=== PATIENT | male | born 1950 | race Caucasian/White ===

== ENCOUNTER 2023-01-05 13:41 | Outpatient (OUT) | payer MEDICARE, SELFPAY ==
[2023-01-05 14:16] LABS: Basophils Absolute Auto 0.1 10^3/uL (0.0-0.1); Basophils Percent Auto 0.8 % (0.2-2.0); Eosinophils Absolute Auto 0.2 10^3/uL (0.0-0.7); Eosinophils Percent Auto 2.9 % (0.9-7.0); Hematocrit 45.8 % (42.0-54.0); Hemoglobin 15.9 g/dL (14.0-18.0); Immature Granulocytes Abs Auto 0.02 10^3/uL (0.00-0.03); Immature Granulocytes Pct Auto 0.3 % (0.0-0.5); Mean Corpuscular HGB Conc 34.7 g/dL (29.9-35.2); Mean Corpuscular Hemoglobin 33.1 pg (25.9-34.0); Mean Corpuscular Volume 95.4 fL (80.0-94.0); Mean Platelet Volume 11.8 fL (9.5-13.5); Monocytes Absolute Auto 0.7 10^3/uL (0.3-0.8); Neutrophils Absolute Auto 3.6 10^3/uL (1.4-6.5); Platelet Count 141 10^3/uL (150-450); Red Cell Distribution Width 12.5 % (11.0-15.0); White Blood Count 6.6 10^3/uL (4.0-11.0)
[2023-01-05 14:17] LABS: Anion Gap 7.2; BUN Creatinine Ratio 13.2; Carbon Dioxide 33.8 mmol/L (21.0-32.0); Chloride 103 mmol/L (98-107); Estimated Average Glucose 111 mg/dL; Estimated GFR (African America >60 (>=60); Estimated GFR (Non-African Ame >60 (>=60); Glucose 107 mg/dL (74-106); Glycohemoglobin A1C 5.5 % (4.5-6.2); Sodium 139 mmol/L (136-145)
== END 2023-01-05 13:42 | disposition home or self-care (01) ==
LOC: LAB 13:45
PROVIDERS: PCP Family Medicine; Visit Provider Family Medicine
DX: Z79.899 Other long term (current) drug therapy (principal); E11.65 Type 2 diabetes mellitus with hyperglycemia
CPT/HCPCS: 36415; 80048; 83036; 85025

== ENCOUNTER 2023-03-05 12:54 | Outpatient (OUT) | payer MEDICARE, SELFPAY ==
[2023-03-05 13:55] LABS: Basophils Percent Auto 0.8 % (0.2-2.0); Eosinophils Absolute Auto 0.1 10^3/uL (0.0-0.7); Eosinophils Percent Auto 1.6 % (0.9-7.0); Hematocrit 45.2 % (42.0-54.0); Hemoglobin 15.1 g/dL (14.0-18.0); Immature Granulocytes Abs Auto 0.02 10^3/uL (0.00-0.03); Immature Granulocytes Pct Auto 0.4 % (0.0-0.5); Lymphocytes Absolute Auto 1.7 10^3/uL (1.2-3.8); Mean Corpuscular HGB Conc 33.4 g/dL (29.9-35.2); Mean Corpuscular Hemoglobin 33.2 pg (25.9-34.0); Mean Corpuscular Volume 99.3 fL (80.0-94.0); Mean Platelet Volume 12.4 fL (9.5-13.5); Monocytes Absolute Auto 0.6 10^3/uL (0.3-0.8); Monocytes Percent Auto 12.6 % (1.7-12.0); Neutrophils Absolute Auto 2.6 10^3/uL (1.4-6.5); Neutrophils Percent Auto 50.6 % (43.0-75.0); Platelet Count 119 10^3/uL (150-450); Red Blood Count 4.55 10^6/uL (4.70-6.10); Red Cell Distribution Width 12.2 % (11.0-15.0); White Blood Count 5.1 10^3/uL (4.0-11.0)
== END 2023-03-05 12:55 | disposition home or self-care (01) ==
LOC: LAB 12:56
PROVIDERS: PCP Family Medicine; Visit Provider Family Medicine
DX: D64.9 Anemia, unspecified (principal)
CPT/HCPCS: 36415; 85025

== ENCOUNTER 2023-04-20 15:54 | Emergency (ER) | payer MEDICARE, SELFPAY ==
[2023-04-20] VITALS (18 sets, daily range): BP systolic 94–215; BP diastolic 65–107; PULSE 61–82; RESP 13–26; TEMP 36.4; O2SAT 83–99; BMI 30.7
--- NOTE | 2023-04-20 16:07 | ECG_ITS ---
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
--- NOTE | 2023-04-20 16:07 | XR_ITS ---
The [address] [address] Patient Name: SEN CARMONA MRN: [id number] date: 1950 Sex: M Assigned Patient Location: ER Current Patient Location: ER Accession/Order Number: [id number] Exam Date: 04/20/2023 16:23 Report Date: 04/20/2023 16:57 At the request of: RUDDY CEBALLOS Procedure: XR chest 1V EXAMINATION: XR chest 1V, , 04/20/2023 4:23 PM EST INDICATION: syncope HISTORY: Ordering Provider Reason for Exam: syncope Technologist Note: Additional: COMPARISON: None. TECHNIQUE: Chest x-ray: One view. FINDINGS: No pneumothorax, pleural effusion or focal airspace consolidation. Heart is normal in size. Bony thorax is unremarkable. XR/XR chest 1V IMPRESSION: No acute cardiopulmonary process. Electronically authenticated by: CARO NICHOLE Date: 04/20/2023 16:57
--- NOTE | 2023-04-20 16:09 | ED_ITS ---
HPI - General Adult General Chief complaint: Headache Stated complaint: Head injury Time Seen by Provider: 04/20/23 15:56 Source: patient Mode of arrival: walk-in Limitations: no limitations History of Present Illness HPI narrative: Patient had two similar episodes - in which he went to bed and then later woke on the floor of the bedroom - once last night and another 3 nights ago. He does not know what happened - he knows that he hit his head. No seizure activity since then but he has had global headache, neck pain, dizziness - I feel like I am drunk but I don't drink - and vague imbalance. Patient takes Plavix daily. No prior history of seizures or recurrent syncope. No extremity injuries or pain. He said that he is struggling for the last several months the patient has been distressed dealing with his 's cancer diagnosis and treatments. He admits he hasn't been eating or drinking appropriately due to the stress and depression of dealing with his 's illness. Related Data Home Medications Medication Instructions Recorded Confirmed carvedilol 3.125 mg tablet 3.125 mg PO Q12H 04/20/23 04/20/23 clopidogrel 75 mg tablet 75 mg PO DAILY 04/20/23 04/20/23 cyclobenzaprine 10 mg tablet 10 mg PO TID 04/20/23 04/20/23 ferrous sulfate 325 mg (65 mg 325 mg PO BID 04/20/23 04/20/23 iron) tablet (FeroSul) hydrocodone 7.5 mg-acetaminophen 1 tab PO Q6H PRN pain 04/20/23 04/20/23 325 mg tablet omeprazole 40 mg capsule,delayed 40 mg PO DAILY 04/20/23 04/20/23 release pioglitazone 15 mg tablet 15 mg PO DAILY 04/20/23 04/20/23 sotalol 80 mg tablet 80 mg PO Q12H 04/20/23 04/20/23 tamsulosin 0.4 mg capsule 0.8 mg PO DAILY 04/20/23 04/20/23 venlafaxine 75 mg capsule,extended 150 mg PO DAILY 04/20/23 04/20/23 release 24 hr zolpidem 10 mg tablet 10 mg PO BEDTIME 04/20/23 04/20/23 Allergies Allergy/AdvReac Type Severity Reaction Status Date / Time No Known Drug Allergies Allergy Verified 04/20/23 16:03 PFSH PFSH Social History Smoking status: Heavy tobacco smoker Exam Narrative Exam Narrative: Nurses note and vital signs reviewed and patient is not hypoxic. afebrile General: The patient appears well and in no apparent distress. Patient is resting comfortably on cart. GCS = 15. Skin: Warm, dry, no pallor noted. Head: Normocephalic, atraumatic - he has scalp tenderness but no swelling, palpable fracture, laceration or abrasion. Neck: Supple, trachea mid-line. Diffuse midline posterior cervical spinal tenderness. Eyes: PERRLA, EOMI ENT: TMs clear bilaterally, no hemotympanum detected, no blood in posterior oropharynx Cardiovascular: Regular Rate and Rhythm Respiratory: Patient is in no distress, no accessory muscle use, lungs are clear to auscultation, no wheezing, rales or rhonchi Chest Wall: no tenderness, no flail chest, contusion, abrasion, or signs of trauma. Back: No thoracic or lumbar tenderness to palpation. No flank tenderness Musculoskeletal: All extremities, pelvis, clavicles with no sign of long bone fracture, no tenderness, no swelling. Pulses at femoral, DP, PT, and popliteal were 2+ bilaterally. Moves all four extremities in all modalities with 5/5 strength. GI: Normal bowel sounds, no tenderness to palpation, no masses appreciated. No rebound, guarding, or rigidity noted. Neurological: A&O x4, normal equal pharmaceutical representative strength, normal finger to nose, normal speech, normal coordination, normal motor, normal sensory. Psychiatric: Cooperative Constitutional Vital Signs, click to edit/add: Last Vital Signs Temp 97.5 F L 04/20/23 15:59 Pulse 74 04/20/23 17:06 Resp 21 04/20/23 17:06 BP 138/92 H 04/20/23 17:06 Pulse Ox 90 L 04/20/23 17:04 O2 Del Method Room Air 04/20/23 15:59 Course Vital Signs Vital signs: Vital Signs Temperature 97.5 F L 04/20/23 15:59 Pulse Rate 82 04/20/23 15:59 Respiratory Rate 16 04/20/23 15:59 Blood Pressure 147/92 H 04/20/23 15:59 Pulse Oximetry 96 04/20/23 15:59 Oxygen Delivery Method Room Air 04/20/23 15:59 Temperature 97.5 F L 04/20/23 15:59 Pulse Rate 74 04/20/23 17:06 Respiratory Rate 21 04/20/23 17:06 Blood Pressure 138/92 H 04/20/23 17:06 Pulse Oximetry 90 L 04/20/23 17:04 Oxygen Delivery Method Room Air 04/20/23 15:59 Medical Decision Making MDM Narrative Medical decision making narrative: Patient was placed on site monitor and EKG obtained. Blood drawn and sent for evaluation. orthostatics were positive with over 50 point drop in systolic blood pressure going from laying to standing. He was given NS IVF 1L. He was sent for CT scans of the head and cervical spine. CXR also obtained and was negative. Normal WBC, Hb 14.6. D-Dimer negative. CMP unremarkable. UA negative. CTs head and cervical spine = without acute worrisome findings or findings to account for the patient's symptoms. Orthostatics repeated after the 1L bolus of NS IVF - his systolic BP only dropped about 15 points. He was given a second liter of NS IVF. Patient and I discussed his results, the stress of his 's cancer and poor prognosis = they have been together over 54 years, he told me. Patient discharged home with recommendation to increase his food and fluid intake and take his meds as prescribed. Lab Data Lab results reviewed: Yes I reviewed the patient's lab results Labs: Lab Results 04/20/23 04/20/23 Range/Units 16:20 17:15 WBC 6.7 (4.0-11.0) 10^3/uL RBC 4.31 L (4.70-6.10) 10^6/uL Hgb 14.6 (14.0-18.0) g/dL Hct 42.6 (42.0-54.0) % MCV 98.8 H (80.0-94.0) fL MCH 33.9 (25.9-34.0) pg MCHC 34.3 (29.9-35.2) g/dL RDW 12.3 (11.0-15.0) % Plt Count 113 L (150-450) 10^3/uL MPV 12.1 (9.5-13.5) fL Neut % (Auto) 57.6 (43.0-75.0) % Lymph % (Auto) 28.0 (20.5-60.0) % [place] % (Auto) 12.4 H (1.7-12.0) % Eos % (Auto) 1.3 (0.9-7.0) % Baso % (Auto) 0.4 (0.2-2.0) % Neut # (Auto) 3.9 (1.4-6.5) 10^3/uL Lymph # (Auto) 1.9 (1.2-3.8) 10^3/uL [place] # (Auto) 0.8 (0.3-0.8) 10^3/uL Eos # (Auto) 0.1 (0.0-0.7) 10^3/uL Baso # (Auto) 0.0 (0.0-0.1) 10^3/uL Abs Immat Gran (auto) 0.02 (0.00-0.03) 10^3/uL Imm/Tot Granulo (auto) 0.3 (0.0-0.5) % D-Dimer 0.35 (<=0.59) mg/L FEU Sodium 139 (136-145) mmol/L Potassium 4.1 (3.5-5.1) mmol/L Chloride 101 (98-107) mmol/L Carbon Dioxide 36.2 H (21.0-32.0) mmol/L Anion Gap 5.9 BUN 13.0 (7.0-18.0) mg/dL Creatinine 0.75 (0.70-1.30) mg/dL Est GFR ( Amer) >60 (>=60) Est GFR (Non-Af Amer) >60 (>=60) BUN/Creatinine Ratio 17.3 Glucose 94 (74-106) mg/dL Calcium 8.9 (8.5-10.1) mg/dL Total Bilirubin 0.4 (0.2-1.0) mg/dL AST 15 (15-37) U/L ALT 14 L (16-63) U/L Alkaline Phosphatase 72 (46-116) U/L Troponin I High Sens 6.7 (4.0-76.1) pg/mL NT-Pro-B Natriuret Pep 68.0 (<=900.0) pg/mL Total Protein 6.9 (6.4-8.2) g/dL Albumin 3.6 (3.4-5.0) g/dL Globulin 3.3 g/dL Albumin/Globulin Ratio 1.1 Urine Color Yellow (YELLOW) Urine Clarity Clear (CLEAR) Urine pH 6.5 (5.0-9.0) Ur Specific [place] 1.020 (1.005-1.025) Urine Protein Negative (NEG/TRACE) mg/dL Urine Glucose (UA) Negative (NEGATIVE) mg/dL Urine Ketones Negative (NEGATIVE) mg/dL Urine Occult Blood Negative (NEGATIVE) Urine Nitrite Negative (NEGATIVE) Urine Bilirubin Negative (NEGATIVE) Urine Urobilinogen 1.0 (0.2-1.0) EU/dL Ur Leukocyte Esterase Negative (NEGATIVE) Imaging Data Chest x-ray: Radiologist's impression: Patient Name: SEN CARMONA MRN: [id number] date: 1950 Sex: M Assigned Patient Location: ER Current Patient Location: ER Accession/Order Number: [id number] Exam Date: 04/20/2023 16:23 Report Date: 04/20/2023 16:57 At the request of: RUDDY CEBALLOS Procedure: XR chest 1V EXAMINATION: XR chest 1V, , 04/20/2023 4:23 PM EST INDICATION: syncope HISTORY: Ordering Provider Reason for Exam: syncope Technologist Note: Additional: COMPARISON: None. TECHNIQUE: Chest x-ray: One view. FINDINGS: No pneumothorax, pleural effusion or focal airspace consolidation. Heart is normal in size. Bony thorax is unremarkable. IMPRESSION: No acute cardiopulmonary process. Electronically authenticated by: CARO NICHOLE Date: 04/20/2023 16:57 CT head & cervical spine: Radiologist's impression: Patient Name: SEN CARMONA MRN: [id number] date: 1950 Sex: M Assigned Patient Location: ER Current Patient Location: ED.MAIN Accession/Order Number: [id number] Exam Date: 04/20/2023 16:23 Report Date: 04/20/2023 17:46 At the request of: RUDDY CEBALLOS Procedure: CT cervical spine wo con EXAMINATION: CT head/brain wo con, CT cervical spine wo con CLINICAL HISTORY: head injury, headache TECHNIQUE: Serial axial unenhanced images were obtained from the vertex to the foramen magnum. Spiral, high resolution axial unenhanced images were obtained from the skull base to the cervicothoracic junction with sagittal and coronal planar reconstructions. All CT scans at this facility use dose modulation, iterative reconstruction, and/or weight based dosing when appropriate to reduce radiation dose to as low as reasonably achievable. COMPARISON: None. RESULT: BRAIN: Acute change: No evidence of an acute contusion or other acute parenchymal process. Hemorrhage: No evidence of acute intracranial hemorrhage. Mass lesion / Mass effect: There is no evidence of an intracranial mass or extraaxial fluid collection. No significant mass effect. Chronic change: Patchy foci of low attenuation coefficient are present within the supratentorial white matter which is a nonspecific finding but likely represents moderate microvascular ischemia. 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 Parenchyma: There is moderate generalized volume loss. Ventricles: Ventricular enlargement concordant with the degree of parenchymal volume loss. Soft Tissues: No significant superficial soft tissue swelling. Facial bones: No evidence of an acute fracture in the visualized facial bones. Orbits: Bilateral lens replacements. Paranasal Sinuses: The paranasal sinuses are clear. Mastoid air cells: Clear. CERVICAL: Counting reference: Craniocervical junction. Alignment: Straightening of the cervical lordosis. Atlantoaxial interval is within normal limits. Vertebral body heights are maintained. Multilevel loss of disc spaces throughout the cervical spine, most prominent at C6-C7. Craniocervical junction: Craniocervical junction is normal. Osseous structures/fracture: No evidence of a lytic or blastic process in the visualized spine. No evidence of acute or chronic fracture. Cervical soft tissues: The paraspinal soft tissues planes are maintained. Multilevel degenerative changes most prominent at C5-C6 and C6-C7. Upper thoracic spine: Visualized upper thoracic canal and foramina without significant narrowing. Severe emphysema within the imaged lung apices. IMPRESSION: Brain: 1. No acute intracranial abnormality; no acute infarct, intracranial hemorrhage or extra-axial collection. 2. Chronic microvascular ischemia, sequela of prior right sided infarct and involutional changes. Cervical spine: 1. No acute fracture or traumatic malalignment in the cervical spine. 2. Multilevel degenerative changes most prominent at C5-C6 and C6-C7. Electronically authenticated by: KAREN SOLER Date: 04/20/2023 17:46 ECG Data Attestation: I personally reviewed and interpreted this ECG as follows: Interpretation: EKG interpretation: Emergency Department physician interpretation. Normal sinus rhythm at 75bpm. LADFB. no ST segment elevation or depression. Discharge Plan Discharge Chief Complaint: Headache Clinical Impression: Orthostasis, Syncope, Head injury Time of Disposition Decision: 18:09 Prescriptions / Home Meds: No Action clopidogrel 75 mg tablet 75 mg PO DAILY omeprazole 40 mg capsule,delayed release(DR/EC) 40 mg PO DAILY zolpidem 10 mg tablet 10 mg PO BEDTIME venlafaxine 75 mg capsule,extended release 24hr 150 mg PO DAILY tamsulosin 0.4 mg capsule 0.8 mg PO DAILY sotalol 80 mg tablet 80 mg PO Q12H pioglitazone 15 mg tablet 15 mg PO DAILY hydrocodone-acetaminophen 7.5-325 mg tablet 1 tab PO Q6H PRN (Reason: pain) ferrous sulfate [FeroSul] 325 mg (65 mg iron) tablet 325 mg PO BID cyclobenzaprine 10 mg tablet 10 mg PO TID carvedilol 3.125 mg tablet 3.125 mg PO Q12H Instructions: Dehydration (ED), Syncope (ED), Head Injury (ED) Stand Alone Forms: Portal Instructions Referrals: Pablo Carranza MD [Primary Care Provider] - 1 week
[2023-04-20 16:39] LABS: Basophils Percent Auto 0.4 % (0.2-2.0); Eosinophils Absolute Auto 0.1 10^3/uL (0.0-0.7); Eosinophils Percent Auto 1.3 % (0.9-7.0); Hematocrit 42.6 % (42.0-54.0); Hemoglobin 14.6 g/dL (14.0-18.0); Immature Granulocytes Abs Auto 0.02 10^3/uL (0.00-0.03); Immature Granulocytes Pct Auto 0.3 % (0.0-0.5); Lymphocytes Absolute Auto 1.9 10^3/uL (1.2-3.8); Mean Corpuscular HGB Conc 34.3 g/dL (29.9-35.2); Mean Corpuscular Hemoglobin 33.9 pg (25.9-34.0); Mean Corpuscular Volume 98.8 fL (80.0-94.0); Mean Platelet Volume 12.1 fL (9.5-13.5); Monocytes Absolute Auto 0.8 10^3/uL (0.3-0.8); Monocytes Percent Auto 12.4 % (1.7-12.0); Neutrophils Absolute Auto 3.9 10^3/uL (1.4-6.5); Neutrophils Percent Auto 57.6 % (43.0-75.0); Platelet Count 113 10^3/uL (150-450); Red Blood Count 4.31 10^6/uL (4.70-6.10); Red Cell Distribution Width 12.3 % (11.0-15.0); White Blood Count 6.7 10^3/uL (4.0-11.0)
[2023-04-20] MEDS: 0.9 % SODIUM CHLORIDE 1,000 ML 999 ML IV (16:41)
[2023-04-20 16:54] LABS: D Dimer 0.35 mg/L FEU (<=0.59)
[2023-04-20 17:01] LABS: Alanine Aminotransferase 14 U/L (16-63); Albumin Globulin Ratio 1.1; Albumin Level 3.6 g/dL (3.4-5.0); Alkaline Phosphatase 72 U/L (46-116); Anion Gap 5.9; Aspartate Amino Transferase 15 U/L (15-37); BUN Creatinine Ratio 17.3; Bilirubin Total 0.4 mg/dL (0.2-1.0); Calcium 8.9 mg/dL (8.5-10.1); Carbon Dioxide 36.2 mmol/L (21.0-32.0); Chloride 101 mmol/L (98-107); Estimated GFR (African America >60 (>=60); Estimated GFR (Non-African Ame >60 (>=60); Globulin 3.3 g/dL; Glucose 94 mg/dL (74-106); Potassium 4.1 mmol/L (3.5-5.1); Sodium 139 mmol/L (136-145); Total Protein 6.9 g/dL (6.4-8.2); Troponin I High Sensitivity 6.7 pg/mL (4.0-76.1)
[2023-04-20 17:54] LABS: Bilirubin Urine NEGATIVE (NEGATIVE); Blood Urine NEGATIVE (NEGATIVE); Clarity Urine CLEAR (CLEAR); Color Urine YELLOW (YELLOW); Glucose Urine UA NEGATIVE (NEGATIVE); Ketones Urine NEGATIVE (NEGATIVE); Leukocyte Esterase Urine NEGATIVE (NEGATIVE); Nitrite Urine NEGATIVE (NEGATIVE); Protein Urine NEGATIVE (NEG/TRACE); Urine Microscopic Indicated NO; pH Urine 6.5 (5.0-9.0)
[2023-04-20] MEDS: 0.9 % SODIUM CHLORIDE 1,000 ML 1000 ML IV (18:12)
== END 2023-04-20 19:00 | disposition home or self-care (01) ==
PROVIDERS: Emergency Provider Emergency Medicine; PCP Family Medicine
DX: S09.90XA Unspecified injury of head, initial encounter (principal); I95.1 Orthostatic hypotension; Z79.02 Long term (current) use of antithrombotics/antiplatelets; Z79.899 Other long term (current) drug therapy; F17.210 Nicotine dependence, cigarettes, uncomplicated; W22.8XXA Striking against or struck by other objects, initial encounter
CPT/HCPCS: 36415; 70450; 71045; 72125; 80053; 81003; 83880; 84484; 85025; 85378; 93005; 96360; 96361; 99285

== ENCOUNTER 2023-05-13 20:59 | Emergency (ER) | payer MEDICARE, SELFPAY ==
[2023-05-13] VITALS (15 sets, daily range): BP systolic 116; BP diastolic 69; PULSE 75–87; RESP 16–22; TEMP 36.4; O2SAT 96; BMI 32.3
--- NOTE | 2023-05-13 21:33 | ECG_ITS ---
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
--- NOTE | 2023-05-13 21:33 | CT_ITS ---
The [address] [address] Patient Name: SEN CARMONA MRN: [id number] date: 1950 Sex: M Assigned Patient Location: ER Current Patient Location: Accession/Order Number: [id number] Exam Date: 05/13/2023 23:08 Report Date: 05/13/2023 23:44 At the request of: WENDY MARKER Procedure: CT soft tissue neck wo/w con EXAM: CT soft tissue neck wo/w con HISTORY: neck pain, diff swallowing COMPARISON: CT cervical spine 04/20/2023. TECHNIQUE: Unenhanced and contrast-enhanced axial CT of the neck was performed with coronal and sagittal reformats provided. FINDINGS: The parotid, submandibular and thyroid glands are within normal limits. Nasopharynx, oropharynx, oral cavity and the larynx are within normal limits. No cervical lymphadenopathy. No enlarged or necrotic lymph nodes. Imaged intracranial contents are within normal limits. Vascular structures of the neck are normal. Sequelae of centrilobular and paraseptal emphysematous disease at the lung apices. Nodular scarring at the left lung apex, partially imaged. Orbits are intact. Status post bilateral lens replacements. Imaged sinuses are clear. Mastoids and middle ears are clear. No acute or aggressive osseous abnormality. CT/CT soft tissue neck wo/w con IMPRESSION: No acute abnormality of the neck soft tissues. Electronically authenticated by: BENNIE MCKEON Date: 05/13/2023 23:44
--- NOTE | 2023-05-13 21:35 | ED.NECK1 ---
HPI - Neck Pain/Injury General Chief Complaint: Neck Pain/Injury Stated Complaint: neck pain, was here a few weeks, almost lost elyse Time Seen by Provider: 05/13/23 21:14 Source: patient Mode of arrival: walk-in Limitations: no limitations History of Present Illness HPI Narrative: This 72-year-old male presents for evaluation of right-sided neck pain. Several weeks ago the patient had a fall out of bed and struck the right side of his head. He was seen here and evaluated. He had a CT scan done at that time that was normal. He states that he has an having increasing right-sided neck pain. He has unable to flex his neck or rotated to the right or left. He states that he followed up after being seen in emergency department with his family physician and was told that he has arthritis in his neck. He told his doctor this was BS and the neck pain is not arthritis. The patient has no upper extremity weakness numbness or tingling. He has not had any fever. He does have a cough and is a smoker. Since that time he has developed pain with swallowing and thinks that this may be related to his neck pain and has right-sided ear pain. He does have chronic pain and took 3 Vicodin today. Related Data Home Medications Medication Instructions Recorded Confirmed carvedilol 3.125 mg tablet 3.125 mg PO Q12H 04/20/23 05/13/23 clopidogrel 75 mg tablet 75 mg PO DAILY 04/20/23 05/13/23 cyclobenzaprine 10 mg tablet 10 mg PO TID 04/20/23 05/13/23 ferrous sulfate 325 mg (65 mg 325 mg PO BID 04/20/23 05/13/23 iron) tablet (FeroSul) hydrocodone 7.5 mg-acetaminophen 1 tab PO Q6H PRN pain 04/20/23 04/20/23 325 mg tablet omeprazole 40 mg capsule,delayed 40 mg PO DAILY 04/20/23 05/13/23 release pioglitazone 15 mg tablet 15 mg PO DAILY 04/20/23 05/13/23 sotalol 80 mg tablet 80 mg PO Q12H 04/20/23 04/20/23 tamsulosin 0.4 mg capsule 0.8 mg PO DAILY 04/20/23 05/13/23 venlafaxine 75 mg capsule,extended 150 mg PO DAILY 04/20/23 05/13/23 release 24 hr zolpidem 10 mg tablet 10 mg PO BEDTIME 04/20/23 05/13/23 Allergies Allergy/AdvReac Type Severity Reaction Status Date / Time No Known Drug Allergies Allergy Verified 05/13/23 21:07 Review of Systems ROS Status of ROS 10 or more systems reviewed and unremarkable except as noted in history and below [facility] Social History Smoking status: Current every day smoker Exam Narrative Exam Narrative: Nurses note and vital signs reviewed and patient is not hypoxic. General:Nontoxic, thin alert male resting comfortably on the stretcher, no respiratory distress Skin: Warm, dry, no pallor noted. There is no rash noted. Tobacco stained fingers Head: Normocephalic, atraumatic Eye: Normal conjunctiva, no drainage, EOMI. PERRL, No photophobia noted Neck: Tenderness to the anterior and posterior sternocleidomastoid muscles and insertion on the occipital mastoid bone. Decreased range of motion in all directions due to pain. No pulsatile masses appreciated trachea is midline. No anterior posterior cervical lymphadenopathy appreciated Ears, Nose, Mouth, and Throat: oral mucosa is moist. Nares patent. Mouth without vesicles. Ear canals patent. Tm's without Erythema Cardiovascular: Regular Rate and Rhythm S1S2, no murmurs, rubs or gallops, pulses are brisk and equal bilaterally Respiratory: Patient is in no distress, no accessory muscle use, lungs are diffusely diminished Back: non-tender, no CVA tenderness bilaterally to percussion. GI: Normal bowel sounds, no tenderness to palpation, no masses appreciated. No rebound, guarding, or rigidity noted. Musculoskeletal: The patient has no evidence of calf tenderness, no pitting edema, symmetrical pulses noted bilaterally Neurological: A&O x4, normal speech, upper and lower extremity strength and sensation are intact Psychiatric: Cooperative Constitutional Vital Signs, click to edit/add: Last Vital Signs Temp 97.6 F 05/13/23 21:09 Pulse 84 05/13/23 21:09 Resp 20 05/13/23 21:09 BP 116/69 05/13/23 21:09 Pulse Ox 96 05/13/23 21:09 O2 Del Method Room Air 05/13/23 21:09 Course Vital Signs Vital signs: Vital Signs Temperature 97.6 F 05/13/23 21:09 Pulse Rate 84 05/13/23 21:09 Respiratory Rate 20 05/13/23 21:09 Blood Pressure 116/69 05/13/23 21:09 Pulse Oximetry 96 05/13/23 21:09 Oxygen Delivery Method Room Air 05/13/23 21:09 Temperature 97.6 F 05/13/23 21:09 Pulse Rate 84 05/13/23 21:09 Respiratory Rate 20 05/13/23 21:09 Blood Pressure 116/69 05/13/23 21:09 Pulse Oximetry 96 05/13/23 21:09 Oxygen Delivery Method Room Air 05/13/23 21:09 MDM - Neck Pain/Injury MDM Narrative Medical decision making narrative: This 72-year-old male who is a history of chronic back pain for which he is prescribed 7.5 mg [place] by his family physician presents for evaluation of right-sided neck pain with decreased range of motion. The patient had a fall several weeks ago and was seen in this emergency department. He has been having increasing neck pain since that time. He has no associated neurological symptoms. He states that most recently he has been having trouble swallowing and he feels this is related to his neck pain. He does not have any focal weakness numbness or tingling. He has not had a fever. His neuro exam is normal. He has tenderness in the anterior and posterior bellies of the sternocleidomastoid muscle. There was no midline bony vertebral tenderness or step-off. Due to the fact that he is complaining of pain with swallowing associated with his neck pain I ordered a CT scan of the soft tissues of the neck with IV contrast. He has a normal white count and hemoglobin. He has normal electrolytes. He has a normal Lactic acid. Strep testing is negative. Was medicated emergency department with IV fluids, IV morphine, Toradol and IM Valium. On reevaluation he states that he does not feel any better. I explained to him that his CT scan does not show any acute findings and his symptoms are likely musculoskeletal in nature. I explained to him that I cannot prescribe any additional narcotics since he gets narcotics from his family physician. He will be discharged home with a prescription for Flexeril and 600 mg ibuprofen. I encouraged him to use moist heat, gentle stretching and follow up closely with his PCP. Medical Records Medical records narrative: The [address] [address] [address] Scan Report Signed Patient: SEN CARMONA MR#: [id number] : 1950 Acct:[id number] Age/Sex: 72 / M ADM Date: 05/13/23 Loc: ER Attending Dr: Ordering Physician: Monika Guzman Date of Service: 05/13/23 Procedure(s): CT soft tissue neck wo/w con Accession Number(s): [id number] cc: Pablo Carranza M.D.~ The [address] [address] Patient Name: SEN CARMONA MRN: [id number] date: 1950 Sex: M Assigned Patient Location: ER Current Patient Location: ER Accession/Order Number: [id number] Exam Date: 05/13/2023 23:08 Report Date: 05/13/2023 23:44 At the request of: MONIKA GUZMAN Procedure: CT soft tissue neck wo/w con EXAM: CT soft tissue neck wo/w con HISTORY: neck pain, diff swallowing COMPARISON: CT cervical spine 04/20/2023. TECHNIQUE: Unenhanced and contrast-enhanced axial CT of the neck was performed with coronal and sagittal reformats provided. FINDINGS: The parotid, submandibular and thyroid glands are within normal limits. Nasopharynx, oropharynx, oral cavity and the larynx are within normal limits. No cervical lymphadenopathy. No enlarged or necrotic lymph nodes. Imaged intracranial contents are within normal limits. Vascular structures of the neck are normal. Sequelae of centrilobular and paraseptal emphysematous disease at the lung apices. Nodular scarring at the left lung apex, partially imaged. Orbits are intact. Status post bilateral lens replacements. Imaged sinuses are clear. Mastoids and middle ears are clear. No acute or aggressive osseous abnormality. CT/CT soft tissue neck wo/w con IMPRESSION: No acute abnormality of the neck soft tissues. Electronically authenticated by: BENNIE MCKEON Date: 05/13/2023 23:44 Lab Data Labs: Lab Results 05/13/23 05/13/23 05/13/23 Range/Units 21:38 21:43 21:50 WBC 8.0 (4.0-11.0) 10^3/uL RBC 4.45 L (4.70-6.10) 10^6/uL Hgb 14.8 (14.0-18.0) g/dL Hct 43.9 (42.0-54.0) % MCV 98.7 H (80.0-94.0) fL MCH 33.3 (25.9-34.0) pg MCHC 33.7 (29.9-35.2) g/dL RDW 12.0 (11.0-15.0) % Plt Count 166 (150-450) 10^3/uL MPV 11.8 (9.5-13.5) fL Neut % (Auto) 65.9 (43.0-75.0) % Lymph % (Auto) 20.6 (20.5-60.0) % [place] % (Auto) 11.3 (1.7-12.0) % Eos % (Auto) 1.4 (0.9-7.0) % Baso % (Auto) 0.5 (0.2-2.0) % Neut # (Auto) 5.3 (1.4-6.5) 10^3/uL Lymph # (Auto) 1.6 (1.2-3.8) 10^3/uL [place] # (Auto) 0.9 H (0.3-0.8) 10^3/uL Eos # (Auto) 0.1 (0.0-0.7) 10^3/uL Baso # (Auto) 0.0 (0.0-0.1) 10^3/uL Abs Immat Gran (auto) 0.02 (0.00-0.03) 10^3/uL Imm/Tot Granulo (auto) 0.3 (0.0-0.5) % Sodium 137 (136-145) mmol/L Potassium 3.9 (3.5-5.1) mmol/L Chloride 99 (98-107) mmol/L Carbon Dioxide 33.6 H (21.0-32.0) mmol/L Anion Gap 8.3 BUN 13.0 (7.0-18.0) mg/dL Creatinine 0.66 L (0.70-1.30) mg/dL Est GFR ( Amer) >60 (>=60) Est GFR (Non-Af Amer) >60 (>=60) BUN/Creatinine Ratio 19.7 Glucose 107 H (74-106) mg/dL Lactate 0.9 (0.4-2.0) mmol/L Calcium 9.1 (8.5-10.1) mg/dL Total Bilirubin 0.3 (0.2-1.0) mg/dL AST 14 L (15-37) U/L ALT 15 L (16-63) U/L Alkaline Phosphatase 83 (46-116) U/L Total Protein 7.2 (6.4-8.2) g/dL Albumin 3.2 L (3.4-5.0) g/dL Globulin 4.0 g/dL Albumin/Globulin Ratio 0.8 Streptococcus Screen Negative ECG Data Attestation: I personally reviewed and interpreted this ECG as follows: (Sinus rhythm at 75 beats for minute, left anterior hemiblock, no acute ST segment elevation or T-wave inversion) Discharge Plan Discharge Chief Complaint: Neck Pain/Injury Clinical Impression: Acute torticollis, Cervical strain, acute Patient Disposition: Home, Self-Care Time of Disposition Decision: 23:57 Condition: Good Prescriptions / Home Meds: No Action clopidogrel 75 mg tablet 75 mg PO DAILY omeprazole 40 mg capsule,delayed release(DR/EC) 40 mg PO DAILY zolpidem 10 mg tablet 10 mg PO BEDTIME venlafaxine 75 mg capsule,extended release 24hr 150 mg PO DAILY tamsulosin 0.4 mg capsule 0.8 mg PO DAILY sotalol 80 mg tablet 80 mg PO Q12H pioglitazone 15 mg tablet 15 mg PO DAILY hydrocodone-acetaminophen 7.5-325 mg tablet 1 tab PO Q6H PRN (Reason: pain) ferrous sulfate [FeroSul] 325 mg (65 mg iron) tablet 325 mg PO BID cyclobenzaprine 10 mg tablet 10 mg PO TID carvedilol 3.125 mg tablet 3.125 mg PO Q12H Instructions: Cervical Strain (DC), Neck Pain (ED) Stand Alone Forms: Portal Instructions Referrals: Pablo Carranza MD [Primary Care Provider] - 1 week
[2023-05-13 22:09] LABS: Basophils Percent Auto 0.5 % (0.2-2.0); Eosinophils Absolute Auto 0.1 10^3/uL (0.0-0.7); Eosinophils Percent Auto 1.4 % (0.9-7.0); Hematocrit 43.9 % (42.0-54.0); Hemoglobin 14.8 g/dL (14.0-18.0); Immature Granulocytes Abs Auto 0.02 10^3/uL (0.00-0.03); Immature Granulocytes Pct Auto 0.3 % (0.0-0.5); Lymphocytes Absolute Auto 1.6 10^3/uL (1.2-3.8); Lymphocytes Percent Auto 20.6 % (20.5-60.0); Mean Corpuscular HGB Conc 33.7 g/dL (29.9-35.2); Mean Corpuscular Hemoglobin 33.3 pg (25.9-34.0); Mean Corpuscular Volume 98.7 fL (80.0-94.0); Mean Platelet Volume 11.8 fL (9.5-13.5); Monocytes Absolute Auto 0.9 10^3/uL (0.3-0.8); Monocytes Percent Auto 11.3 % (1.7-12.0); Neutrophils Absolute Auto 5.3 10^3/uL (1.4-6.5); Neutrophils Percent Auto 65.9 % (43.0-75.0); Platelet Count 166 10^3/uL (150-450); Red Blood Count 4.45 10^6/uL (4.70-6.10)
[2023-05-13 22:16] LABS: Internal Control Within Normal Limits; Strep A Antigen Screen Negative
[2023-05-13 22:30] LABS: Lactate/Lactic Acid 0.9 mmol/L (0.4-2.0)
[2023-05-13] MEDS: 0.9 % SODIUM CHLORIDE 1,000 ML 1000 ML IV (22:31)
[2023-05-13] MEDS: MORPHINE SULFATE 4 MG/ML VIAL IV (22:32)
[2023-05-13] MEDS: KETOROLAC TROMETHAMINE 30 MG/ML VIAL 15 MG IVP (22:33)
[2023-05-13 22:37] LABS: Alanine Aminotransferase 15 U/L (16-63); Albumin Globulin Ratio 0.8; Albumin Level 3.2 g/dL (3.4-5.0); Alkaline Phosphatase 83 U/L (46-116); Anion Gap 8.3; Aspartate Amino Transferase 14 U/L (15-37); BUN Creatinine Ratio 19.7; Bilirubin Total 0.3 mg/dL (0.2-1.0); Calcium 9.1 mg/dL (8.5-10.1); Carbon Dioxide 33.6 mmol/L (21.0-32.0); Chloride 99 mmol/L (98-107); Estimated GFR (African America >60 (>=60); Estimated GFR (Non-African Ame >60 (>=60); Glucose 107 mg/dL (74-106); Potassium 3.9 mmol/L (3.5-5.1); Sodium 137 mmol/L (136-145); Total Protein 7.2 g/dL (6.4-8.2)
[2023-05-13] MEDS: DIAZEPAM 10 MG/2 ML SYRINGE 5 MG IM (22:37)
[2023-05-14] VITALS: PULSE 85; RESP 16
== END 2023-05-14 00:26 | disposition home or self-care (01) ==
PROVIDERS: Emergency Provider Emergency Medicine; PCP Family Medicine
DX: S16.1XXA Strain of muscle, fascia and tendon at neck level, initial encounter (principal); M43.6 Torticollis; W06.XXXA Fall from bed, initial encounter; G89.29 Other chronic pain; M54.9 Dorsalgia, unspecified; Z79.899 Other long term (current) drug therapy; F17.210 Nicotine dependence, cigarettes, uncomplicated
CPT/HCPCS: 36415; 70492; 80053; 83605; 85025; 87070; 87880; 93005; 96374; 96375; 99285; Q9967

== ENCOUNTER 2023-07-22 11:30 | Outpatient (OUT) | payer MEDICARE, SELFPAY ==
--- OUTSIDE RECORDS SUMMARY | 2023-07-22 11:35 | XMS_ITS | CCD ---
Author Name Unknown Address [address] [place] [address] Organization [facility] Care Team Providers Care Economics Department Chair Name Role Phone Pablo Abreu Unavailable Unavailable Unavailable Nataliia Koch Unavailable Unavailable Unavailable LOIS, DR PABLO Goodman Primary Care Unavailable NADERER, DR PABLO Goodman Consulting Unavailable NADERER, DR PABLO Goodman Admitting Unavailable NADERER, DR PABLO Goodman Attending Unavailable NADERER, DR PABLO Goodman Consulting Unavailable NADERER, DR PABLO Goodman Admitting Unavailable NADERER, DR PABLO Goodman Primary Care Unavailable NADERER, DR PABLO Goodman Attending Unavailable NADERER, DR PABLO Goodman Consulting Unavailable NADERER, DR PABLO Goodman Admitting Unavailable NADERER, DR PABLO Goodman Primary Care Unavailable NADERER, DR PABLO Goodman Attending Unavailable NADERER, DR PABLO Goodman Consulting Unavailable NADERER, DR PABLO Goodman Admitting Unavailable NADERER, DR PABLO Goodman Primary Care Unavailable NADERER, DR PABLO Goodman Attending Unavailable NADERER, DR PABLO Goodman Primary Care Unavailable NADERER, DR PABLO Goodman Consulting Unavailable NADERER, DR PABLO Goodman Admitting Unavailable NADERER, DR PABLO Goodman Attending Unavailable NADERER, DR PABLO Goodman Consulting Unavailable NADERER, DR PABLO Goodman Primary Care Unavailable NADERER, DR PABLO Goodman Admitting Unavailable NADERER, DR PABLO Goodman Attending Unavailable MENG ., HECTOR Admitting Unavailable NADERER, DR PABLO Goodman Primary Care Unavailable ZIEBER, DR KATIA Neil Consulting Unavailable MENG ., HECTOR Attending Unavailable NADERER, DR PABLO Goodman Consulting Unavailable BETH QUINTANA Consulting Unavailable CHELE MALAVE Consulting Unavailable SISTER, HUNTER Consulting Unavailable MENG ., HECTOR Consulting Unavailable ZAIDA HEBERT Consulting Unavailable NADERER, DR PABLO Goodman Consulting Unavailable NADERER, DR PABLO Goodman Attending Unavailable NADERER, DR PABLO Goodman Admitting Unavailable NADERER, DR PABLO Goodman Primary Care Unavailable NADERER, DR PABLO Goodman Attending Unavailable NADERER, DR PABLO Goodman Consulting Unavailable NADERER, DR PABLO Goodman Admitting Unavailable NADERER, DR PABLO Goodman Primary Care Unavailable NADERER, DR PABLO Goodman Attending Unavailable NADERER, DR PABLO Goodman Consulting Unavailable NADERER, DR PABLO Goodman Admitting Unavailable NADERER, DR PABLO Goodman Primary Care Unavailable NADERER, DR PABLO Goodman Admitting Unavailable NADERER, DR PABLO Goodman Primary Care Unavailable NADERER, DR PABLO Goodman Attending Unavailable NADERER, DR PABLO Goodman Consulting Unavailable HAY, DR FOX Consulting Unavailable HAY, DR FOX Admitting Unavailable HAY, DR FOX Attending Unavailable NADERER, DR PABLO Goodman Primary Care Unavailable NADERER, DR PABLO Goodman Admitting Unavailable NADERER, DR PABLO Goodman Attending Unavailable NADERER, DR PABLO Goodman Consulting Unavailable NADERER, DR PABLO Goodman Primary Care Unavailable LILIAN, BETH Consulting Unavailable ADELIA, FESTUS Consulting Unavailable SISTER, HUNTER Consulting Unavailable SHARP, SEUN Consulting Unavailable TAMLYN, ZAIDA Consulting Unavailable FACUNDO, KADEN Consulting Unavailable NADERER, DR PABLO Goodman Consulting Unavailable NADERER, DR PABLO Goodman Admitting Unavailable NADERER, DR PABLO Goodman Attending Unavailable NADERER, DR PABLO Goodman Primary Care Unavailable TAMLYN, ZAIDA Admitting Unavailable TAMLYN, ZAIDA Consulting Unavailable TAMLYN, ZAIDA Attending Unavailable NADERER, DR PABLO Goodman Primary Care Unavailable MINO, DEBBY Consulting Unavailable NADERER, DR PABLO Goodman Attending Unavailable NADERER, DR PABLO Goodman Consulting Unavailable NADERER, DR PABLO Goodman Primary Care Unavailable NADERER, DR PABLO Goodman Admitting Unavailable NADERER, DR PABLO Goodman Admitting Unavailable NADERER, DR PABLO Goodman Primary Care Unavailable NADERER, DR PABLO Goodman Attending Unavailable NADERER, DR PABLO Goodman Consulting Unavailable MISA Padilla Attending Provider MD Consuelo Johnson Referring Provider MD Pablo Abreu Primary Care Provider Consuelo Johnson Unavailable MISA Padilla Attending Provider MD Consuelo Johnson Referring Provider MD Pablo Abreu Primary Care Provider Escamilla, Israel Referring Unavailable Escamilla, Israel Attending Unavailable Naderer, Dr. Pablo Grewal Primary Care Unavai lable Escamilla, Israel Attending Unavailable Naderer, Dr. Pablo Grewal Primary Care Unavai lable Escamilla, Israel Referring Unavailable Naderer, Dr. Pablo Grewal Primary Care Unavai lable Escamilla, Israel Referring Unavailable Escamilla, Israel Attending Unavailable Naderer, Dr. Pablo Grewal Primary Care Unavai lable Escamilla, Israel Referring Unavailable Escamilla, Israel Attending Unavailable Escamilla, Wood Referring Unavailable Escamilla, Israel Attending Unavailable Nadererashaad, Dr. Pablo Grewal Primary Care Wandy SERVIN, NIZTA HUITRON Attending Janice vailable Lois, Dr. Pablo Grewal Primary Care Wandy Alex, Dr. Katia Perdomo Admitting Unavaila ble Abi, Dr. Katia Perdomo Attending Unavaila ble Andi, Israel Referring Unavailable Lois, Dr. Pablo Grewal Primary Care MD Consuelo Buck Attending Provider MD Israel Escamilla Attending Provider MD Pablo Abreu Primary Care Provider MD Katia Alex Attending Provider [phone] MD Katia Alex Referring Provider [phone] Abi, Dr. Katia Perdomo Attending Unavaila ble Escamilla, Dr. Israel Valdez Referring Janice vailable Nadadair, Dr. Pablo Grewal Primary Care BRUCE Olson Attending Unavailable Lois, Dr. Pablo Grewal Primary Care Wandy Alex, Dr. Katia Perdomo Referring Unavaila ble Pablo Abreu MD Primary Care Provider ANDI, ISRAEL M Attending Unavailable PABLO ABREU Primary Care Unavailabl e Escamilla, Israel Admitting Unavailable Escamilla, Israel Attending Unavailable Pablo Abreu Primary Care Unavailable Pablo Abreu Primary Care Unavailable Asaad, Imad Referring Unavailable Mellissa Padilla Admitting Unavailab Mellissa Angulo Attending Unavailab le Asaad, Imad Admitting Unavailable Asaad, Imad Attending Unavailable Pablo Abreu Primary Care Unavailable Katia Alex Admitting Unavailable Katia Alex Attending Unavailable Katia Alex Referring Unavailable Pablo Abreu Primary Care Unavailable PABLO ABREU Attending Unavailable Allergies Allergy Classification Reported Allergen(s) Allergy Type Date of Onset Reaction(s) Facility (4 sources) [place] tar; Translations: [pine tar] Drug Allergy 07-29-2022 [facility] Repository Medications Current Medications Medication Drug Class(es) Dates Sig (Normalized) Sig (Original) acetaminophen 325 mg / HYDROcodone bitartrate 7.5 mg oral tablet (20 sources) Opioid Agonist Start: 02-14-2021 End: 08-03-2022 take 1 tablet by mouth every six hours Hydrocodone-Acet aminophen ([place]) 7.5-325 mg Tablet Active 1 TAB PO Q6H August 03, 2022 1:00am aspirin 81 mg oral tablet (20 sources) Platelet Aggregation Inhibitor, Nonsteroidal Anti-inflammatory Drug Start: 09-03-2022 take 81 mg by mouth once daily Aspirin Active 81 MG PO Daily September 03, 2022 12:00am Start: 02-14-2021 End: 08-03-2022 take 1 tablet by mouth once daily, then take 1 tablet by mouth once aspirin 81 mg EC tablet Take 1 tablet (81 mg) by mouth once daily. Take one tablet by mouth every Wednesday and only 0 04/10/2022 Active cyclobenzaprine hydrochloride 10 mg oral tablet (20 sources) Muscle Relaxant Start: 02-14-2021 End: 08-03-2022 take 1 tablet by mouth three times daily Cyclobenzaprine (Flexeril) 10 mg Tablet Active 10 MG PO Three times daily August 03, 2022 1:00am take 1 tablet by da th every twenty-four hours as needed cyclobenzaprine (Flexeril) 10 mg tablet Take 1 tablet (10 mg) by mouth once daily as needed for muscle spasms. 0 Active docusate sodium 100 mg oral capsule (20 sources) Start: 08-03-2022 take 1 capsule by mouth twice daily Docusate Sodium (Colace) 100 mg Capsule Active 100 MG PO Twice daily August 03, 2022 1:00am Start: 02-14-2021 End: 02-14-2021 Docusate Sodium (Colace) 50 mg Capsule Discontinued 50 MG PO As Directed February 14, 2021 12:00am February 14, 2021 9:41am Colace Active omeprazole 40 mg delayed release oral capsule (20 sources) Proton Pump Inhibitor Start: 02-14-2021 take 40 mg by mouth once daily Omeprazole Active 40 MG PO Daily February 14, 2021 12:00am Omeprazole Not-T aking Omeprazole Activ e pioglitazone 15 mg oral tablet (20 sources) Peroxisome Proliferator Receptor alpha Agonist, Peroxisome Proliferator Receptor gamma Agonist, Thiazolidinedione Start: 02-14-2021 take 15 mg by mouth once daily Pioglitazone Active 15 MG PO Daily February 14, 2021 12:00am Actos Active simvastatin 40 mg oral tablet (20 sources) HMG-CoA Reductase Inhibitor Start: 02-14-2021 take 1 tablet by mouth once daily at bedtime Simvastatin (Zocor) 40 mg Tablet Active 40 MG PO Daily at bedtime February 14, 2021 12:00am Zocor Active Completed/Discontinued Medications Medication Drug Class(es) Dates Sig (Normalized) Sig (Original) [id number] 200 actuat albuterol 0.09 mg/actuat metered dose inhaler (4 sources) beta2-Adrenergic Agonist Start: 02-14-2021 End: 08-03-2022 Albuterol Sulfate Discontinued 90 MCG INHALATION As Directed February 14, 2021 12:00am August 03, 2022 3:56pm amoxicillin 500 mg oral capsule (4 sources) Penicillin-class Antibacterial Start: 02-23-2022 take 1 capsule by mouth every eight hours Amoxicillin 500 MG Oral Capsule take 1 capsule by mouth every 8 hours Quantity: 21 Refills: 0 Ordered: 23-Feb-2022 DO Start : 23-Feb-2022 Complete Start: 11-27-2021 take 1 tablet by da th every eight hours Amoxicillin 875 MG Oral Tablet take 1 tablet by mouth every 8 hours for 10 days Quantity: 30 Refills: 0 Ordered: 27-Nov-2021 DO Start : 27-Nov-2021 Complete Aspir-81 (3 sources) Aspir-81 Not-Rufus ing Aspir-81 Active atenolol 25 mg oral tablet (4 sources) beta-Adrenergic Anaya Start: 02-14-2021 End: 02-17-2021 take 25 mg by mouth once daily Atenolol Discontinued 25 MG PO Daily February 14, 2021 12:00am February 17, 2021 1:48pm betamethasone 0.5 mg/ml / clotrimazole 10 mg/ml topical cream (1 source) Azole Antifungal, Corticosteroid Start: 03-09-2022 Clotrimazole-Betam ethasone 1-0.05 % External Cream Quantity: 45 Refills: 0 Ordered: 09-Mar-2022 DO Start : 09-Mar-2022 Complete carvedilol 3.125 mg oral tablet (3 sources) alpha-Adrenergic Anaya, beta-Adrenergic Anaya take 1 tablet by mouth twice daily Carvedilol 3.125 MG Oral Tablet Take 1 tablet twice daily Quantity: 180 Refills: 3 Ordered: 07-Oct-2022 DO Active chlorhexidine gluconate 1.2 mg/ml mouthwash (3 sources) Start: 11-27-2021 Chlorhexidine Gluconate 0.12 % Mouth/Throat Solution Quantity: 473 Refills: 0 Ordered: 27-Nov-2021 DO Start : 27-Nov-2021 Complete Start: 11-27-2021 take 10 mL by mouth twice daily Peridex 0.12 % gargle 10 ml Mouth/Throat twice daily Oct, Active clopidogrel 75 mg oral tablet (6 sources) P2Y12 Platelet Inhibitor Start: 09-03-2022 take 1 tablet by mouth once daily Clopidogrel Bisulfate 75 MG Oral Tablet TAKE 1 TABLET DAILY. Quantity: 90 Refills: 3 Ordered: 30-Sep-2022 Israel Escamilla MD Start : 30-Sep-2022 Active restart doxycycline hyclate 100 mg oral tablet (4 sources) Tetracycline-class Drug Start: 02-17-2021 End: 08-03-2022 take 100 mg by mouth twice daily Doxycycline Hyclate Discontinued 100 MG PO Twice daily 16 February 17, 2021 12:00am August 03, 2022 3:56pm ferrous sulfate 325 mg oral tablet (3 sources) take 1 tablet by mouth once daily at mealtime Ferrous Sulfate 325 (65 Fe) MG Oral Tablet TAKE 1 TABLET DAILY WITH FOOD. Quantity: 90 Refills: 3 Ordered: 07-Oct-2022 DO Active FLUoxetine 40 mg oral capsule (4 sources) Serotonin Reuptake Inhibitor Start: 02-14-2021 End: 02-14-2021 take 1 capsule by mouth once daily Fluoxetine (Prozac) 40 mg Capsule Discontinued 40 MG PO Daily February 14, 2021 12:00am February 14, 2021 9:39am gabapentin 100 mg oral capsule (4 sources) Anti-epileptic Agent Start: 02-14-2021 End: 02-14-2021 take 100 mg by mouth three times daily Gabapentin Discontinued 100 MG PO Three times daily February 14, 2021 12:00am February 14, 2021 8:50am midodrine hydrochloride 5 mg oral tablet (8 sources) alpha-Adrenergic Agonist Start: 06-08-2022 take 1 tablet by mouth twice daily Midodrine HCl - 5 MG Oral Tablet Take 1 tablet twice daily Quantity: 180 Refills: 3 Ordered: 08-Jun-2022 Israel Escamilla MD Start : 08-Jun-2022 Active new start predniSONE 10 mg oral tablet (4 sources) Start: 02-17-2021 End: 08-03-2022 Prednisone Discontinued 10 MG PO Daily February 17, 2021 12:00am August 03, 2022 3:56pm 30mg daily x 2 days, 20 mg daily x 2 days, 10mg daily x 2 days, then stop. Take in AM with food. sotalol hydrochloride 80 mg oral tablet (20 sources) Antiarrhythmic Start: 09-30-2022 take 1 tablet by mouth once daily Sotalol HCl - 80 MG Oral Tablet TAKE 1 TABLET EVERY 12 HOURS DAILY. Quantity: 180 Refills: 1 Ordered: 30-Sep-2022 Israel Escamilla MD Start : 30-Sep-2022 Active restart Start: 02-25-2022 take 1 tablet by da th every twelve hours sotalol (Betapace) 80 mg tablet Take 1 tablet (80 mg) by mouth every 12 hours. 0 02/25/2022 Active Start: 02-17-2021 End: 08-03-2022 take 1 tablet by mouth twice daily Sotalol (Betapace) 80 mg Tablet Active 80 MG PO Twice daily August 03, 2022 1:00am Betapace Not-Rufus ing Betapace Active tamsulosin hydrochloride 0.4 mg oral capsule (20 sources) alpha-Adrenergic Anaya Start: 08-03-2022 End: 08-03-2022 take 1 capsule by mouth once daily Tamsulosin (Flomax) 0.4 mg Capsule Discontinued 0.4 MG PO Daily August 03, 2022 1:00am August 03, 2022 3:57pm Start: 02-14-2021 take 0.8 mg by mouth once real y Tamsulosin Active 0.8 MG PO Daily February 14, 2021 12:00am Flomax Active 24 hr venlafaxine 75 mg extended release oral capsule (20 sources) Serotonin and Norepinephrine Reuptake Inhibitor Start: 11-18-2021 take 1 capsule by mouth every twenty-four hours Venlafaxine HCl ER 75 MG Oral Capsule Extended Release 24 Hour Quantity: 90 Refills: 0 Ordered: 18-Nov-2021 DO Start : 18-Nov-2021 Complete Start: 02-14-2021 take 75 mg by mouth once daily Venlafaxine Active 75 MG PO Daily February 14, 2021 12:00am take 1 tablet by da th once daily venlafaxine (Effexor) 75 mg tablet Take 1 tablet (75 mg) by mouth once daily. 0 Active warfarin sodium 2 mg oral tablet (15 sources) Vitamin K Antagonist Start: 02-14-2021 End: 09-03-2022 Warfarin Discontinued 5 MG PO As Directed February 14, 2021 12:00am September 03, 2022 11:26am Coumadin Not-Rufus ing Warfarin Sodium 2 MG Oral Tablet Take as directed by Dr. Abreu Quantity: 0 Refills: 0 Ordered: 21-Aug-2021 DO Active Coumadin Active zolpidem tartrate 5 mg oral tablet (20 sources) gamma-Aminobutyric Acid-ergic Agonist Start: 08-03-2022 End: 09-03-2022 take 1 tablet by mouth once daily at bedtime Zolpidem (Ambien) 5 mg Tablet Discontinued 5 MG PO Daily at bedtime August 03, 2022 1:00am September 03, 2022 11:27am Start: 02-14-2021 take 10 mg by mouth once daily Zolpidem Active 10 MG PO Daily February 14, 2021 12:00am Ambien Active Problems Active Problems Problem Classification Problem Date Documented Da te Episodic/Chronic Acute cerebrovascular disease (20 sources) Cerebrovascular accident; Translations: [Cerebral artery occlusion, unspecified with cerebral infarction] Onset: 3 02-14-2021 Chronic Biliary tract disease (1 source) Calculus of gallbladder without cholecystitis without obstruction; Translations: [CALCU GB W/O CHOLECYST W/O OBST] Onset: 3 Episodic Cardiac dysrhythmias (20 sources) Atrial fibrillation and flutter ; Translations: [Atrial fib/flutter, transient] Onset: 3 02-14-2021 Chronic Chronic obstructive pulmonary disease and bronchiectasis (20 sources) Chronic obstructive lung disease; Translations: [Chronic airway obstruction, not elsewhere classified] Onset: 3 02-14-2021 Chronic Coagulation and hemorrhagic disorders (9 sources) Thrombocytopenic disorder; Translations: [Thrombocytopenia, unspecified] 02-14-2021 Chronic Conditions associated with dizziness or vertigo (12 sources) Dizziness; Translations: [Dizziness and giddiness] 02-14-2021 Episodic Coronary atherosclerosis and other heart disease (20 sources) Coronary arteriosclerosis; Translations: [Coronary atherosclerosis of unspecified type of vessel, [place] or graft] Onset: 3 02-14-2021 Chronic Deficiency and other anemia (3 sources) Iron deficiency anemia secondary to blood loss (chronic); Translations: [Iron deficiency anemia secondary to blood loss (chronic)] Onset: 3 08-20-2022 Chronic Deficiency and other anemia (3 sources) Anemia due to blood loss; Translations: [Iron deficiency anemia secondary to blood loss (chronic)] 08-20-2022 Chronic Deficiency and other anemia (1 source) Iron deficiency anemia secondary to blood loss (chronic); Translations: [Iron deficiency anemia secondary to blood loss (chronic)] Onset: 3 Chronic Diabetes mellitus with complications (12 sources) Type 2 diabetes mellitus; Translations: [Diabetes with neurological manifestations, type II or unspecified type, not stated as uncontrolled] Onset: 3 Chronic Diabetes mellitus without complication (20 sources) Diabetes mellitus; Translations: [Diabetes mellitus without mention of complication, type II or unspecified type, not stated as uncontrolled] Onset: 3 02-14-2021 Chronic Disorders of lipid metabolism (18 sources) Hyperlipidemia; Translations: [Other and unspecified hyperlipidemia] Onset: 3 04-13-2023 Chronic Diverticulosis and diverticulitis (1 source) Diverticulosis of large intestine without perforation or abscess with bleeding; Translations: [DVRTCLOS LG INT W/O PERF/ABSC W/BL] Onset: 3 Chronic Esophageal disorders (1 source) Gastro-esophageal reflux disease without esophagitis; Translations: [GERD WITHOUT ESOPHAGITIS] Onset: 3 Chronic Essential hypertension (1 source) Essential (primary) hypertension; Translations: [ESSENTIAL PRIMARY HYPERTENSION] Onset: 3 Chronic Gastrointestinal hemorrhage (12 sources) Gastrointestinal hemorrhage, unspecified; Translations: [Acute gastrointestinal hemorrhage] Onset: 3 Episodic Hyperplasia of prostate (5 sources) Benign prostatic hyperplasia without lower urinary tract symptoms; Translations: [Benign prostatic hyperplasia] Onset: 3 02-14-2021 Chronic Late effects of cerebrovascular disease (1 source) Hemiplegia and hemiparesis following cerebral infarction affecting left non-dominant side; Translations: [Hemiplga following cerebral infrc affecting left nondom side] Onset: 3 Chronic Mood disorders (4 sources) Depressive disorder; Translations: [Depression] 02-14-2021 Chronic Nonspecific chest pain (4 sources) Chest pain; Translations: [Chest pain, unspecified] 02-14-2021 Episodic Other aftercare (9 sources) Drug therapy finding; Translations: [Long-term (current) use of other medications] Episodic Other aftercare (1 source) Other continuous churn buttermaker (current) drug therapy; Translations: [OTH ROLLER SETTER CURRENT DRUG THERAPY] Onset: 3 Episodic Other aftercare (1 source) [facility] (current) use of aspirin; Translations: [ROLLER SETTER CURRENT USE OF ASPIRIN] Onset: 3 Episodic Other aftercare (4 sources) Encounter for therapeutic drug level monitoring; Translations: [ENC THERAPEUTC DRUG LEVL MONITORING] Onset: 3 Episodic Other aftercare (1 source) [facility] (current) use of anticoagulants; Translations: [ROLLER SETTER CURRNT USE ANTICOAGULANTS] Onset: 3 Episodic Other aftercare (4 sources) Long-term current use of anticoagulant; Translations: [terminal block assembler (current) use of anticoagulants] 02-14-2021 Episodic Other and ill-defined cerebrovascular disease (1 source) Cerebrovascular disease, unspecified; Translations: [CEREBROVASCULAR DISEASE UNSPECIFIED] Onset: 3 Chronic Other circulatory disease (3 sources) Device in situ; Translations: [Other specified cardiac device in situ] Chronic Other circulatory disease (1 source) Presence of other cardiac implants and grafts; Translations: [Presence of Watchman left atrial appendage closure device] Chronic Other circulatory disease (8 sources) Orthostatic hypotension; Translations: [Orthostatic hypotension] Episodic Other circulatory disease (1 source) Personal history of transient ischemic attack (TIA), and cerebral infarction without residual deficits; Translations: [PERS HX TIA AND CI NO RESID DEFICIT] Onset: 3 Episodic Other circulatory disease (1 source) Orthostatic hypotension; Translations: [ORTHOSTATIC HYPOTENSION] Onset: 3 Episodic Other circulatory disease (1 source) Hypotension, unspecified; Translations: [HYPOTENSION UNSPECIFIED] Onset: 3 Episodic Other injuries and conditions due to external causes (1 source) History of falling; Translations: [History of falling] Onset: 3 Episodic Other nutritional; endocrine; and metabolic disorders (8 sources) Obesity; Translations: [Obesity, unspecified] 02-14-2021 Chronic Other nutritional; endocrine; and metabolic disorders (4 sources) Hypomagnesemia; Translations: [Hypomagnesemia] 02-14-2021 Chronic Other nutritional; endocrine; and metabolic disorders (9 sources) Overweight in adulthood with body mass index of 25 or more but less than 30; Translations: [Overweight] Episodic Other screening for suspected conditions (not mental disorders or infectious disease) (1 source) Encounter for screening for malignant neoplasm of prostate; Translations: [ENC SCREEN MALIG NEOPLASM PROSTATE] Onset: 3 Episodic Other upper respiratory disease (1 source) Other diseases of bronchus, not elsewhere classified; Translations: [Other diseases of bronchus, not elsewhere classified] Onset: 3 Episodic Pleurisy; pneumothorax; pulmonary collapse (1 source) Atelectasis; Translations: [Atelectasis] Onset: 3 Episodic Pneumonia (except that caused by tuberculosis or sexually transmitted disease) (4 sources) Pneumonia; Translations: [Pneumonia, unspecified organism] 02-14-2021 Episodic Residual codes; unclassified (4 sources) Tobacco user; Translations: [Tobacco use] 02-14-2021 Episodic Spondylosis; intervertebral disc disorders; other back problems (1 source) Other intervertebral disc degeneration, lumbar region; Translations: [OTH IV DISC DEGEN LUMBAR REGION] Onset: 3 Chronic Spondylosis; intervertebral disc disorders; other back problems (4 sources) Chronic back pain ; Translations: [Dorsalgia, unspecified] 02-14-2021 Episodic Substance-related disorders (18 sources) Smokes tobacco daily; Translations: [Tobacco use disorder] Onset: 3 04-13-2023 Chronic Comment on above: 1 ppd; Syncope (5 sources) Syncope and collapse; Translations: [Near syncope] Onset: 3 02-14-2021 Episodic Unclassified (1 source) CONTACT W/AND (SUSP) EXPOS COVID-19; Translations: [CONTACT W/AND (SUSP) EXPOS COVID-19] Onset: 3 Past or Other Problems Problem Classification Problem Date Documented Da te Episodic/Chronic Deficiency and other anemia (2 sources) Anemia, unspecified; Translations: [Anemia, unspecified] Onset: 09-03-2022 Episodic Diseases of mouth; excluding dental (1 source) Cellulitis and abscess of mouth Onset: 11-27-2021 Resolved: 11-27-2021 Episodic E Codes: Struck by; against (1 source) Other cause of strike by thrown, projected or falling object, initial encounter; Translations: [OTH CAUSE STRIK THRWN/FALL OBJ INIT] Onset: 10-07-2021 Episodic Immunizations and screening for infectious disease (1 source) Encounter for immunization; Translations: [ENCOUNTER FOR IMMUNIZATION] Onset: 10-07-2021 Episodic Open wounds of extremities (4 sources) Puncture wound without foreign body of left forearm, initial encounter; Translations: [PUNCT WOUND W/O FB LT FOREARM INIT] Onset: 10-05-2021 Episodic Superficial injury; contusion (1 source) Contusion of left forearm, initial encounter; Translations: [CONTUSION LEFT FOREARM INITIAL ENC] Onset: 10-07-2021 Episodic Unclassified (1 source) Onset: 04-13-2023 04-13-2023 Results Test Name Value Interpretation Reference Range Facility ECG 12 [place] 04-13-2023 ECG reveals normal sinus rhythm with left axis deviation [facility] Work Phone: CT Watchman Full Contraston 12-25-2022 CT Watchman Full Contrast Normal [facility] Jada Meléndez [address] [place] Work Phone: TH CT WATCHMAN FULL CONTRAST on 12-25-[address] WATCHMAN FULL CONTRAST Addendum Begins Patient Name: SEN GARCIA ADDENDUM: NON-CARDIOVASCULAR FINDINGS INCLUDED LUNGS, AIRWAYS AND PLEURA Endotracheal / endobronchial lesion: Negative Nodule: Negative Airspace disease: Negative Pleural effusion: Negative Pneumothorax: Negative Other: 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 INCLUDED CHEST WALL No acute or contributory unanticipated findings INCLUDED UPPER ABDOMEN No acute or contributory unanticipated findings ------- NON-CARDIOVASCULAR IMPRESSION NO ACUTE OR CONTRIBUTORY UNEXPECTED FINDINGS OF THE INCLUDED NON-CARDIOVASCULAR STRUCTURES NOTE THIS ADDENDUM IS SOLELY FOR INTERPRETATION OF ANATOMY OUTSIDE THE CARDIOVASCULAR SYSTEM. INTERPRETATION OF AND REPORTING OF THE CARDIOVASCULAR STRUCTURES ARE THE SOLE RESPONSIBILITY OF THE SUPERVISOR [employer] SUBMITTING THE ORIGINAL REPORT (NOT THIS ADDENDUM) Electronically signed by: ALBINO LAGUNA MD Addendum Ends Patient Name: SEN GARCIA STUDY: TH CT WATCHMAN FULL CONTRAST; 12/25/2022 10:12 am INDICATION: post watchman device surveilance I48.0: Paroxysmal atrial fibrillation. COMPARISON: None. ACCESSION NUMBER(S): [id number] ORDERING CLINICIAN: KATIA ALEX TECHNIQUE: Using multidetector CT technology, Marlon CT 64-slice scanner, axial, sequential imaging with retrospective gating and minimal slice thickness was performed of the chest following the intravenous administration of contrast material. A low-osmolar contrast agent was used 70 mL of Omnipaque 350. Also, the imaging was repeated after 30 sec delay as per watchman protocol. Also, patient received 500 mL of normal saline prior to exam as per protocol. For optimization of anatomic evaluation, multiplanar reconstruction, maximum intensity projections, and advanced 3-D off-line postprocessing were performed on a dedicated stand-alone workstation under the direct supervision of the interpreting physician. CT Dose-Length Product (DLP): mGy/cm CT Dose Reduction Employed: Yes Prospective triggering, iterative reconstruction FINDINGS: LEFT ATRIAL APPENDAGE: Well seated left atrial appendage closure device without Laxmi device leak. There is thrombus within the closure device. There is thrombus in the distal left atrial appendage. There is no evidence of thrombus on the external surface/left atrial aspect of closure device. CORONARY ARTERIES: The study was not tailored for the evaluation of coronary arteries. There is normal origin of the coronary arteries. Coronary anatomy is right dominant. CARDIAC CHAMBERS: The cardiac chambers demonstrate normal atrioventricular and ventriculoarterial concordance, and systemic and pulmonary venous return. LEFT ATRIUM: Normal size RIGHT ATRIUM: Normal size INTERATRIAL SEPTUM: Intact. LEFT VENTRICLE: Normal size RIGHT VENTRICLE: Normal size AORTIC VALVE: The aortic valve is trileaflet in morphology. No calcifications. MITRAL VALVE: No thickening/calcificati on. THORACIC AORTA: Dilated aortic root 4.1 cm. The aortic arch is not included on this examination. PERICARDIUM: There is no pericardial effusion of thickening. IMPRESSION: 1. Well seated left atrial appendage closure device without Laxmi device leak. 2. No evidence of thrombus on the external surface/left atrial aspect of closure device. Reading Chief Wellness Officer: Dr. Festus Crenshaw, Date: 12/25/2022 10:19 am Electronically signed by: ALBINO LAGUNA MD Normal [facility] Albumin [Mass/volume] in Ser um or Plasma by Bromocresol green (BCG) dye binding methoOrdered By: Katia Alex on 12-24-2022 Albumin BCG dye [Mass/Vol] 4.3 g/dL 3.5-5.7 [facility] Calcium [Mass/volume] in Ser um or PlasmaOrdered By: Katia Alex on 12-24-2022 Calcium [Mass/Vol] 9.3 mg/dL 8.6-10.3 [facility] Carbon dioxide, total [Moles /volume] in Serum or PlasmaOrdered By: Katia Alex on 12-24-2022 CO2 [Moles/Vol] 34.3 mmol/L 21.0-31.0 [facility] Chloride [Moles/volume] in S rodo or PlasmaOrdered By: Katia Alex on 12-24-2022 Chloride [Moles/Vol] 101 mmol/L 98-107 [facility] Creatinine [Mass/volume] in Serum or PlasmaOrdered By: Katia Alex on 12-24-2022 Creatinine [Mass/Vol] 0.83 mg/dL 0.70-1.30 [facility] Glucose [Mass/volume] in Ser um or PlasmaOrdered By: Katia Alex on 12-24-2022 Glucose [Mass/Vol] 99 mg/dL 70-100 [facility] Comment on above: ADA recommended refe rence rangeRandom Glucose Reference Range is dependent on time and content of last meal. Glucose of more than 200 mg/dL in a nonstressed, ambulatory subject supports the diagnosis of Diabetes Mellitus. No Panel InformationOrdered By: Katia Alex on 12-24-2022 Estimated GFR (CKD-EPI) > 60.0 mL/Min [facility] Creatinine Clearance (Chem N/A [facility] Phosphate [Mass/volume] in S rodo or PlasmaOrdered By: Katia Alex on 12-24-2022 Phosphate [Mass/Vol] 2.6 mg/dL 3.7-7.2 [facility] Potassium [Moles/volume] in Serum or PlasmaOrdered By: Katia Alex on 12-24-2022 Potassium [Moles/Vol] 4.4 mmol/L 3.5-5.1 [facility] Renal Function Panelon 12-24 Albumin [Mass/Vol] 4.3 g/dL Normal 3.5-5.7 [facility] Comment on above: Result Comment: PERF ORMED BY: [place] [address] PATHOLOGIST BUCKLE STRAP DRUM OPERATOR ARDEN MELTON M.D. Performed By: #### R ENAL #### [address] Anion gap [Moles/Vol] 9.1 mmol/L Normal 6.0-15.0 [facility] Comment on above: Performed By: #### R ENAL #### [facility] [address] Calcium [Mass/Vol] 9.3 mg/dL Normal 8.6-10.3 [facility] Comment on above: Performed By: #### R ENAL #### [facility] [address] Chloride [Moles/Vol] 101 mmol/L Normal 98-107 [facility] Comment on above: Performed By: #### R ENAL #### [facility] [address] CO2 [Moles/Vol] 34.3 mmol/L High 21.0-31.0 [facility] Comment on above: Performed By: #### R ENAL #### [facility] [address] Creatinine [Mass/Vol] 0.83 mg/dL Normal 0.70-1.30 [facility] Comment on above: Performed By: #### R ENAL #### [place] [address] [place] GFR/1.73 sq M.predicted MDRD (S/P/Bld) [Vol rate/Area] mL/min/{1.73_m2} Normal [facility] Comment on above: Performed By: #### R ENAL #### [address] Glucose [Mass/Vol] 99 mg/dL Normal 70-100 [facility] Comment on above: Result Comment: [place] Glucose Reference Range is dependent on time and content of last meal. Glucose of more than 200 mg/dL in a nonstressed, ambulatory subject supports the diagnosis of Diabetes Mellitus. ADA recommended reference range Performed By: #### R ENAL #### [facility] [address] [place] [address] Phosphate [Mass/Vol] 2.6 mg/dL Low 3.7-7.2 [facility] Comment on above: Performed By: #### R ENAL #### [facility] [address] Potassium [Moles/Vol] 4.4 mmol/L Normal 3.5-5.1 [facility] Comment on above: Performed By: #### R ENAL #### [facility] [address] Sodium [Moles/Vol] 140 mmol/L Normal 136-145 [facility] Comment on above: Performed By: #### R ENAL #### [facility] [address] Urea nitrogen [Mass/Vol] 14 mg/dL Normal 12-22 [facility] Comment on above: Performed By: #### R ENAL #### [facility] [address] [place] [address] Serum or plasma anion gap de terminationOrdered By: Katia Alex on 12-24-2022 Anion gap [Moles/Vol] 9.1 mmol/L 6.0-15.0 [facility] Sodium [Moles/volume] in Ser um or PlasmaOrdered By: Katia Alex on 12-24-2022 Sodium [Moles/Vol] 140 mmol/L 136-145 [facility] Urea nitrogen [Mass/volume] in Serum or PlasmaOrdered By: Katia Alex on 12-24-2022 Urea nitrogen [Mass/Vol] 14 mg/dL 12-22 [facility] Alanine Aminotransferaseon 0 10-29-2022 ALT [Catalytic activity/Vol] 13 U/L Normal [facility] Comment on above: Order Comment: SAVITA DamicoKW Performed By: #### C MP, FE and TIBC, HAPT, RETIC, LDH, WILLIE, [id number], CBC #### [facility] [address] Alanine aminotransferase [En zymatic activity/volume] in Serum or PlasmaOrdered By: Israel Escamilla on 10-29-2022 ALT [Catalytic activity/Vol] 13 U/L [facility] Aspartate Amino Transferaseo n 10-29-2022 AST [Catalytic activity/Vol] 17 U/L Normal 13-39 [facility] Comment on above: Order Comment: FASTI NG. JKW Performed By: #### C MP, FE and TIBC, HAPT, RETIC, LDH, WILLIE, [id number], CBC #### [facility] [address] Aspartate aminotransferase [ Enzymatic activity/volume] in Serum or PlasmaOrdered By: Israel Escamilla on 10-29-2022 AST [Catalytic activity/Vol] 17 U/L 13-39 [facility] Basic Metabolic Panelon Anion gap [Moles/Vol] 8.1 mmol/L Normal 6.0-15.0 [facility] Comment on above: Order Comment: FASTI NG. JKW Performed By: #### C MP, FE and TIBC, HAPT, RETIC, LDH, WILLIE, [id number], CBC #### [address] Calcium [Mass/Vol] 9.5 mg/dL Normal 8.6-10.3 [facility] Comment on above: Order Comment: FASTI NG. JKW Performed By: #### C MP, FE and TIBC, HAPT, RETIC, LDH, WILLIE, [id number], CBC #### [address] Chloride [Moles/Vol] 103 mmol/L Normal 98-107 [facility] Comment on above: Order Comment: FASTI NG. JKW Performed By: #### C MP, FE and TIBC, HAPT, RETIC, LDH, WILLIE, [id number], CBC #### [facility] [address] [place] [address] CO2 [Moles/Vol] 34.5 mmol/L High 21.0-31.0 [facility] Comment on above: Order Comment: FASTI NG. JKW Performed By: #### C MP, FE and TIBC, HAPT, RETIC, LDH, WILLIE, [id number], CBC #### [address] Creatinine [Mass/Vol] 0.77 mg/dL Normal 0.70-1.30 [facility] Comment on above: Order Comment: FASTI NG. JKW Performed By: #### C MP, FE and TIBC, HAPT, RETIC, LDH, WILLIE, [id number], CBC #### [address] GFR/1.73 sq M.predicted MDRD (S/P/Bld) [Vol rate/Area] mL/min/{1.73_m2} Normal [facility] Comment on above: Order Comment: FASTI NG. JKW Performed By: #### C MP, FE and TIBC, HAPT, RETIC, LDH, WILLIE, [id number], CBC #### [address] Glucose [Mass/Vol] 105 mg/dL High 70-100 [facility] Comment on above: Order Comment: FASTI NG. JKW Result Comment: [facility] Glucose Reference Range is dependent on time and content of last meal. Glucose of more than 200 mg/dL in a nonstressed, ambulatory subject supports the diagnosis of Diabetes Mellitus. ADA recommended reference range Performed By: #### C MP, FE and TIBC, HAPT, RETIC, LDH, WILLIE, [id number], CBC #### [address] Potassium [Moles/Vol] 4.6 mmol/L Normal 3.5-5.1 [facility] Comment on above: Order Comment: FASTI NG. JKW Performed By: #### C MP, FE and TIBC, HAPT, RETIC, LDH, WILLIE, [id number], CBC #### [address] Sodium [Moles/Vol] 141 mmol/L Normal 136-145 [facility] Comment on above: Order Comment: FASTI NG. JKW Performed By: #### C MP, FE and TIBC, HAPT, RETIC, LDH, WILLIE, [id number], CBC #### [facility] [address] [place] [id number] [facility] Urea nitrogen [Mass/Vol] 14 mg/dL Normal 7-25 [facility] Comment on above: Order Comment: SAVITA HALL JKW Performed By: #### C MP, FE and TIBC, HAPT, RETIC, LDH, WILLIE, [id number], CBC #### [facility] [address] Basophils Auto (Bld) [#/Vol] Ordered By: Israel Escamilla on 10-29-2022 Basophils (Bld) [#/Vol] 0.0 10*3/uL 0.0-0.2 [facility] Basophils/100 WBC Auto (Bld) Ordered By: Israel Escamilla on 10-29-2022 Basophils/100 WBC (Bld) 0.6 % . [facility] Calcium [Mass/volume] in Ser um or PlasmaOrdered By: Israel Escamilla on 10-29-2022 Calcium [Mass/Vol] 9.5 mg/dL 8.6-10.3 [facility] Carbon dioxide, total [Moles /volume] in Serum or PlasmaOrdered By: Israel Escamilla on 10-29-2022 CO2 [Moles/Vol] 34.5 mmol/L 21.0-31.0 [facility] Chloride [Moles/volume] in S rodo or PlasmaOrdered By: Israel Escamilla on 10-29-2022 Chloride [Moles/Vol] 103 mmol/L 98-107 [facility] Cholesterol [Mass/volume] in Serum or PlasmaOrdered By: Israel Escamilla on 10-29-2022 Cholesterol [Mass/Vol] 167 mg/dL 140-200 [facility] Comment on above: Chol less than 200 m g/dl low riskChol 201-239 mg/dl borderline riskChol 240 mg/dl and greater high risk Cholesterol in LDL Calc [Mas s/Vol]Ordered By: Israel Escamilla on 10-29-2022 Cholesterol in LDL [Mass/Vol] 87 mg/dL 0-100 [facility] Comment on above: LDL ATP III CLASSIFI CATIONLDL less than 100 mg/dL OptimalLDL 100-129 mg/dL Near or above optimalLDL 130-159 mg/dL Borderline highLDL 160-189 mg/dL HighLDL greater than 189 mg/dL Very high Cholesterol in VLDL Calc [Ma ss/Vol]Ordered By: Israel Escamilla on 10-29-2022 Cholesterol in VLDL [Mass/Vol] 34 mg/dL [facility] Complete Blood Count Auto Di ffon 10-29-2022 Basophils (Bld) [#/Vol] 0.0 10*3/uL Normal 0.0-0.2 [facility] Comment on above: Order Comment: FASTI NG. JKW Result Comment: PERF ORMED BY: [place] [address] PATHOLOGIST BUCKLE STRAP DRUM OPERATOR ARDEN MELTON M.D. Performed By: #### C MP, FE and TIBC, HAPT, RETIC, LDH, WILLIE, [id number], CBC #### [address] Basophils/100 WBC (Bld) 0.6 % Normal . [facility] Comment on above: Order Comment: FASTI NG. JKW Performed By: #### C MP, FE and TIBC, HAPT, RETIC, LDH, WILLIE, [id number], CBC #### [address] Eosinophils (Bld) [#/Vol] 0.1 10*3/uL Normal 0.0-0.45 [facility] Comment on above: Order Comment: FASTI NG. JKW Performed By: #### C MP, FE and TIBC, HAPT, RETIC, LDH, WILLIE, [id number], CBC #### [address] Eosinophils/100 WBC (Bld) 1.4 % Normal . [facility] Comment on above: Order Comment: FASTI NG. JKW Performed By: #### C MP, FE and TIBC, HAPT, RETIC, LDH, WILLIE, [id number], CBC #### [address] Erythrocyte distribution width (RBC) [Ratio] 14.0 % Normal 12.0-14.8 [facility] Comment on above: Order Comment: FASTI NG. JKW Performed By: #### C MP, FE and TIBC, HAPT, RETIC, LDH, WILLIE, [id number], CBC #### [address] Hematocrit (Bld) [Volume fraction] 44.1 % Normal 38.8-50.0 [facility] Comment on above: Order Comment: FASTI NG. JKW Performed By: #### C MP, FE and TIBC, HAPT, RETIC, LDH, WILLIE, [id number], CBC #### [address] Hemoglobin (Bld) [Mass/Vol] 15.0 g/dL Normal 13.0-17.0 [facility] Comment on above: Order Comment: FASTI NG. JKW Performed By: #### C MP, FE and TIBC, HAPT, RETIC, LDH, WILLIE, [id number], CBC #### [address] Lymphocytes (Bld) [#/Vol] 1.8 10*3/uL Normal 1.00-4.8 [facility] Comment on above: Order Comment: FASTI NG. JKW Performed By: #### C MP, FE and TIBC, HAPT, RETIC, LDH, WILLIE, [id number], CBC #### [address] Lymphocytes/100 WBC (Bld) 27.6 % Normal . [facility] Comment on above: Order Comment: FASTI NG. JKW Performed By: #### C MP, FE and TIBC, HAPT, RETIC, LDH, WILLIE, [id number], CBC #### [address] MCH (RBC) [Entitic mass] 31.1 pg Normal 27.5-35.2 [facility] Comment on above: Order Comment: FASTI NG. JKW Performed By: #### C MP, FE and TIBC, HAPT, RETIC, LDH, WILLIE, [id number], CBC #### [address] MCV (RBC) [Entitic vol] 91.6 fL Normal 83.5-101 [facility] Comment on above: Order Comment: FASTI NG. JKW Performed By: #### C MP, FE and TIBC, HAPT, RETIC, LDH, WILLIE, [id number], CBC #### [address] Mean Corpuscular HGB Conc 33.9 g/dL Normal 32.5-35.6 [facility] Comment on above: Order Comment: FASTI NG. JKW Performed By: #### C MP, FE and TIBC, HAPT, RETIC, LDH, WILLIE, [id number], CBC #### [address] Monocytes (Bld) [#/Vol] 0.6 10*3/uL Normal 0.0-0.8 [facility] Comment on above: Order Comment: FASTI NG. JKW Performed By: #### C MP, FE and TIBC, HAPT, RETIC, LDH, WILLIE, [id number], CBC #### [address] Monocytes/100 WBC (Bld) 8.9 % Normal . [facility] Comment on above: Order Comment: FASTI NG. JKW Performed By: #### C MP, FE and TIBC, HAPT, RETIC, LDH, WILLIE, [id number], CBC #### [address] Neutrophils (Bld) [#/Vol] 3.9 10*3/uL Normal 1.8-7.7 [facility] Comment on above: Order Comment: FASTI NG. JKW Performed By: #### C MP, FE and TIBC, HAPT, RETIC, LDH, WILLIE, [id number], CBC #### [place] [id number] [place] Neutrophils/100 WBC (Bld) 61.5 % Normal . [facility] Comment on above: Order Comment: FASTI NG. JKW Performed By: #### C MP, FE and TIBC, HAPT, RETIC, LDH, WILLIE, [id number], CBC #### [facility] [address] NRBC% 0.1 /100{WBC} Normal 0-0.5 [facility] Comment on above: Order Comment: FASTI NG. JKW Performed By: #### C MP, FE and TIBC, HAPT, RETIC, LDH, WILLIE, [id number], CBC #### [address] Platelet mean volume (Bld) [Entitic vol] 9.6 fL Normal 6.6-10.1 [facility] Comment on above: Order Comment: FASTI NG. JKW Performed By: #### C MP, FE and TIBC, HAPT, RETIC, LDH, WILLIE, [id number], CBC #### [address] Platelets (Bld) [#/Vol] 124 10*3/uL Low 150-450 [facility] Comment on above: Order Comment: FASTI NG. JKW Performed By: #### C MP, FE and TIBC, HAPT, RETIC, LDH, WILLIE, [id number], CBC #### [address] RBC (Bld) [#/Vol] 4.82 10*6/uL Normal 3.90-5.60 [facility] Comment on above: Order Comment: FASTI NG. JKW Performed By: #### C MP, FE and TIBC, HAPT, RETIC, LDH, WILLIE, [id number], CBC #### [address] WBC (Bld) [#/Vol] 6.4 10*3/uL Normal 4.1-10.5 [facility] Comment on above: Order Comment: FASTI NG. JKW Performed By: #### C MP, FE and TIBC, HAPT, RETIC, LDH, WILLIE, [id number], CBC #### [facility] [address] Creatinine [Mass/volume] in Serum or PlasmaOrdered By: Israel Escamilla on 10-29-2022 Creatinine [Mass/Vol] 0.77 mg/dL 0.70-1.30 [facility] Eosinophils Auto (Bld) [#/Vo l]Ordered By: Israel Escamilla on 10-29-2022 Eosinophils (Bld) [#/Vol] 0.1 10*3/uL 0.0-0.45 [facility] Eosinophils/100 WBC Auto (Bl d)Ordered By: Israel Morrisonahim on 10-29-2022 Eosinophils/100 WBC (Bld) 1.4 % . [facility] Erythrocyte distribution wid th Auto (RBC) [Ratio]Ordered By: Israel Escamilla on 10-29-2022 Erythrocyte distribution width (RBC) [Ratio] 14.0 % 12.0-14.8 [facility] Glucose [Mass/volume] in Ser um or PlasmaOrdered By: Israel Escamilla on 10-29-2022 Glucose [Mass/Vol] 105 mg/dL 70-100 [facility] Comment on above: ADA recommended refe rence rangeRandom Glucose Reference Range is dependent on time and content of last meal. Glucose of more than 200 mg/dL in a nonstressed, ambulatory subject supports the diagnosis of Diabetes Mellitus. Hematocrit Auto (Bld) [Volum e fraction]Ordered By: Israel Escamilla on 10-29-2022 Hematocrit (Bld) [Volume fraction] 44.1 % 38.8-50.0 [facility] Hemoglobin [Mass/volume] in BloodOrdered By: Israel Escamilla on 10-29-2022 Hemoglobin (Bld) [Mass/Vol] 15.0 g/dL 13.0-17.0 [facility] - Chemistry and C hemistry - challengeon 10-29-2022 Cholesterol [Mass/Vol] 167\S\167 Normal 140-200 MP -[facility] [address] DO Work Phone: Comment on above: Chol less than 200 m g/dl low risk Chol 201-239 mg/dl borderline risk Chol 240 mg/dl and greater high risk Cholesterol in LDL [Mass/Vol] 87\S\87 Normal 0-100 -[facility] [address] DO Work Phone: Comment on above: LDL ATP III CLASSIFI CATION LDL less than 100 mg/dL Optimal LDL 100-129 mg/dL Near or above optimal LDL 130-159 mg/dL Borderline high LDL 160-189 mg/dL High LDL greater than 189 mg/dL Very high Leukocytes [#/volume] correc chivo for nucleated erythrocytes in Blood by Automated counOrdered By: Israel Escamilla on 10-29-2022 WBC corrected for nucl RBC Auto (Bld) [#/Vol] 6.4 10*3/uL 4.1-10.5 [facility] Lipid Panelon 10-29-2022 Cholesterol [Mass/Vol] 167 mg/dL Normal 140-200 [facility] Comment on above: Order Comment: SAVITA GARIBAY Result Comment: Chol less than 200 mg/dl low risk Chol 201-239 mg/dl borderline risk Chol 240 mg/dl and greater high risk Performed By: #### C MP, FE and TIBC, HAPT, RETIC, LDH, WILLIE, [id number], CBC #### [facility] [address] [place] [address] [place] Cholesterol in HDL [Mass/Vol] 45 mg/dL Normal 29-71 [facility] Comment on above: Order Comment: SAVITA GARIBAY Result Comment: HDL CHOL ATP-III CLASSIFICATION Cardiovascular Risk HDL > or equal to 60 mg/dL LOW HDL < 40 mg/dL HIGH Performed By: #### C MP, FE and TIBC, HAPT, RETIC, LDH, WILLIE, [id number], CBC #### [facility] [address] [place] [id number] [facility] Cholesterol.total/Margie sterol in HDL [Mass ratio] 3.7 {ratio} Normal <5.0 [facility] Comment on above: Order Comment: SAVITA GARIBAY Result Comment: PERF ORMED BY: [place] [address] PATHOLOGIST BUCKLE STRAP DRUM OPERATOR ARDEN MELTON M.D. Performed By: #### C MP, FE and TIBC, HAPT, RETIC, LDH, WILLIE, [id number], CBC #### [address] LDL Cholesterol,Calculated 87 mg/dL Normal 0-100 [facility] Comment on above: Order Comment: SAVITA DamicoKW Result Comment: LDL ATP III CLASSIFICATION LDL less than 100 mg/dL Optimal LDL 100-129 mg/dL Near or above optimal LDL 130-159 mg/dL Borderline high LDL 160-189 mg/dL High LDL greater than 189 mg/dL Very high Performed By: #### C MP, FE and TIBC, HAPT, RETIC, LDH, WILLIE, [id number], CBC #### [address] Triglyceride w/Reflex 174 mg/dL High 0-149 [facility] Comment on above: Order Comment: SAVITA DamicoKW Result Comment: TRIG ATP III CLASSIFICATION TRIG less than 150 mg/dL Normal TRIG 150-199 mg/dL Borderline high TRIG 200-500 mg/dL High TRIG greater than 500 mg/dL Very high Standard traceable to the Center for Disease Conrtrol and Prevention (CDC) test method. Performed By: #### C MP, FE and TIBC, HAPT, RETIC, LDH, WILLIE, [id number], CBC #### [address] VLDL CHOLESTEROL 34 mg/dL Normal [facility] Comment on above: Order Comment: SAVITA DamicoKW Performed By: #### C MP, FE and TIBC, HAPT, RETIC, LDH, WILLIE, [id number], CBC #### [address] Lymphocytes Auto (Bld) [#/Vo l]Ordered By: Israel Escamilla on 10-29-2022 Lymphocytes (Bld) [#/Vol] 1.8 10*3/uL 1.00-4.8 [facility] Lymphocytes/100 WBC Auto (Bl d)Ordered By: Israel Escamilla on 10-29-2022 Lymphocytes/100 WBC (Bld) 27.6 % . [facility] MCH Auto (RBC) [Entitic mass ]Ordered By: Israel Escamilla on 10-29-2022 MCH (RBC) [Entitic mass] 31.1 pg 27.5-35.2 [facility] MCHC Auto (RBC) [Mass/Vol]Or dered By: Israel Escamilla on 10-29-2022 MCHC (RBC) [Mass/Vol] 33.9 g/dL 32.5-35.6 [facility] MCV Auto (RBC) [Entitic vol] Ordered By: Israel Escamlila on 10-29-2022 MCV (RBC) [Entitic vol] 91.6 fL 83.5-101 [facility] Monocytes Auto (Bld) [#/Vol] Ordered By: Israel Escamilla on 10-29-2022 Monocytes (Bld) [#/Vol] 0.6 10*3/uL 0.0-0.8 [facility] Monocytes/100 WBC Auto (Bld) Ordered By: Israel Escamilla on 10-29-2022 Monocytes/100 WBC (Bld) 8.9 % . [facility] Neutrophils Auto (Bld) [#/Vo l]Ordered By: Israel Escamilla on 10-29-2022 Neutrophils (Bld) [#/Vol] 3.9 10*3/uL 1.8-7.7 [facility] Neutrophils/100 WBC Auto (Bl d)Ordered By: Israel Escamilla on 10-29-2022 Neutrophils/100 WBC (Bld) 61.5 % . [facility] No Panel InformationOrdered By: Israel Escamilla on 10-29-2022 Estimated GFR (CKD-EPI) > 60.0 mL/Min [facility] Creatinine Clearance (Chem N/A [facility] No Panel Informationon 10-29 61.5\S\61.5 Normal . -[facility] [address] DO Work Phone: 9.6\S\9.6 Normal 6.6-10.1 [facility] [address] DO Work Phone: 124\S\124 below low threshold 150-450 [facility]ly [facility] 250 DO Work Phone: 14.0\S\14.0 Normal 12.0-14.8 [facility] 250 DO Work Phone: 33.9\S\33.9 Normal 32.5-35.6 [facility] 250 DO Work Phone: 31.1\S\31.1 Normal 27.5-35.2 [facility] 250 DO Work Phone: 3.9\S\3.9 Normal 1.8-7.7 [facility] 250 DO Work Phone: 0.1\S\0.1 Normal 0.0-0.45 [facility] 250 DO Work Phone: 0.6\S\0.6 Normal 0.0-0.8 [facility] 250 DO Work Phone: 1.4\S\1.4 Normal . [facility] 250 DO Work Phone: 8.9\S\8.9 Normal . [facility] 250 DO Work Phone: 27.6\S\27.6 Normal . [facility] 250 DO Work Phone: 0.0\S\0.0 Normal 0.0-0.2 [facility] 250 DO Work Phone: Comment on above: PERFORMED BY:[place] [id number] LU[address] DANIEL [place] [id number] MEDICAL DIRECTORARDEN MELTON M.D. 1.8\S\1.8 Normal 1.00-4.8 [facility] 250 DO Work Phone: 91.6\S\91.6 Normal 83.5-101 [facility] 250 DO Work Phone: 44.1\S\44.1 Normal 38.8-50.0 [facility] 250 DO Work Phone: 15.0\S\15.0 Normal 13.0-17.0 [facility] 250 DO Work Phone: 4.82\S\4.82 Normal 3.90-5.60 [facility] 250 DO Work Phone: 6.4\S\6.4 Normal 4.1-10.5 [facility] 250 DO Work Phone: > 60.0 Normal [facility] 250 DO Work Phone: 8.1\S\8.1 Normal 6.0-15.0 [facility] 250 DO Work Phone: 9.5\S\9.5 Normal 8.6-10.3 [facility] 250 DO Work Phone: 34.5\S\34.5 above high threshold 21.0-31.0 [facility] lyndon 250 DO Work Phone: 103\S\103 Normal 98-107 [facility] 250 DO Work Phone: 4.6\S\4.6 Normal 3.5-5.1 [facility] lyndon 250 DO Work Phone: 141\S\141 Normal 136-145 [facility] 250 DO Work Phone: 0.77\S\0.77 Normal 0.70-1.30 [facility] lyndon 250 DO Work Phone: 14\S\14 Normal 7-25 [facility] Crystal Huffman DO Work Phone: 105\S\105 above high threshold 70-100 [facility] Crystal Huffman DO Work Phone: Comment on above: Random Glucose Refer ence Range is dependent on time and content of last meal. Glucose of more than 200 mg/dL in a nonstressed, ambulatory subject supports the diagnosis of Diabetes Mellitus. ADA recommended reference range 17\S\17 Normal 13-39 [facility] Crystal Huffman DO Work Phone: 13\S\13 Normal 7-52 [facility] Work Phone: 3.7\S\3.7 Normal <5.0 [facility] Work Phone: [phone] Comment on above: PERFORMED BY:[place] [address] [place] [phone] MEDICAL DIRECTORARDEN MELTON M.D. 34\S\34 Normal [facility] Crystal Huffman DO Work Phone: 174\S\174 above high threshold 0-149 [facility] Work Phone: [phone] Comment on above: TRIG ATP III CLASSIF ICATION TRIG less than 150 mg/dL Normal TRIG 150-199 mg/dL Borderline high TRIG 200-500 mg/dL High TRIG greater than 500 mg/dL Very high Standard traceable to the Center for Disease Conrtrol and Prevention (CDC) test method. 45\S\45 Normal 29-71 [facility] lyn[place] Huffman DO Work Phone: Comment on above: HDL CHOL ATP-III CLA SSIFICATION Cardiovascular Risk HDL > or equal to 60 mg/dL LOW HDL < 40 mg/dL HIGH Nucleated erythrocytes [Pres ence] in Blood by Automated countOrdered By: Israel Escamilla on 10-29-2022 Nucleated RBC Auto Ql (Bld) 0.1 /100{WBC} 0-0.5 [facility] Platelet mean volume Auto (B ld) [Entitic vol]Ordered By: Israel Escamilla on 10-29-2022 Platelet mean volume (Bld) [Entitic vol] 9.6 fL 6.6-10.1 [facility] Platelets Auto (Bld) [#/Vol] Ordered By: Israel Escamilla on 10-29-2022 Platelets (Bld) [#/Vol] 124 10*3/uL 150-450 [facility] Potassium [Moles/volume] in Serum or PlasmaOrdered By: Israel Escamilla on 10-29-2022 Potassium [Moles/Vol] 4.6 mmol/L 3.5-5.1 [facility] RBC Auto (Bld) [#/Vol]Ordere d By: Israel Escamilla on 10-29-2022 RBC (Bld) [#/Vol] 4.82 10*6/uL 3.90-5.60 [facility] Serum or plasma anion gap de terminationOrdered By: Israel Escamilla on 10-29-2022 Anion gap [Moles/Vol] 8.1 mmol/L 6.0-15.0 [facility] Serum or plasma high density lipoprotein (HDL) cholesterol measurementOrdered By: Israel Escamilla on 10-29-2022 Cholesterol in HDL [Mass/Vol] 45 mg/dL 29-71 [facility] Comment on above: HDL CHOL ATP-III CLA SSIFICATION Cardiovascular RiskHDL > or equal to 60 mg/dL LOWHDL < 40 mg/dL HIGH Serum or plasma total choles terol/high density lipoprotein (HDL) cholesterol mass ratOrdered By: Israel Escamilla on 10-29-2022 Cholesterol.total/Margie sterol in HDL [Mass ratio] 3.7 {ratio} <5.0 [facility] Sodium [Moles/volume] in Ser um or PlasmaOrdered By: Israel Escamilla on 10-29-2022 Sodium [Moles/Vol] 141 mmol/L 136-145 [facility] Triglyceride [Mass/volume] i n Serum or PlasmaOrdered By: Israel Escamilla on 10-29-2022 Triglyceride [Mass/Vol] 174 mg/dL 0-149 [facility] Comment on above: TRIG ATP III CLASSIF ICATIONTRIG less than 150 mg/dL NormalTRIG 150-199 mg/dL Borderline highTRIG 200-500 mg/dL High TRIG greater than 500 mg/dL Very highStandard traceable to the Center for Disease Conrtrol and Prevention (CDC) test method. 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) CAD (coronary artery disease) (414.00) (I25.10) CVA (cerebral vascular accident) (434.91) (I63.9) Diabetes mellitus (250.00) (E11.9) High risk medication use (V58.69) (Z79.899) Hyperlipidemia (272.4) (E78.5) Paroxysmal atrial fibrillation (427.31) (I48.0) COPD (chronic obstructive pulmonary disease) (496) (J44.9) Current every day smoker (305.1) (F17.200) 1 ppd Overweight with body mass index (BMI) of 29 to 29.9 in adult (278.02,V85.25) (E66.3,Z68.29) Presence of Watchman left atrial appendage closure device (V45.09) (Z95.818) Orders CAD (coronary artery disease), CVA (cerebral vascular accident), Presence of Watchman left atrial appendage closure device Start: Clopidogrel Bisulfate 75 MG Oral Tablet; TAKE 1 TABLET DAILY Diabetes mellitus, High risk medication use, Hyperlipidemia, Paroxysmal atrial fibrillation ALT - Alanine Aminotransferase, Serum; Status:Active - Retrospective Authorization; Requested for:[id number]; AST; Status:Active - Retrospective Authorization; Requested for:28Oct2022; Basic Metabolic Panel; Status:Active - Retrospective Authorization; Requested for:28Oct2022; Complete Blood Count; Status:Active - Retrospective Authorization; Requested for:28Oct2022; Lipid Panel; Status:Active - Retrospective Authorization; Requested for:28Oct2022; Overweight with body mass index (BMI) of 29 to 29.9 in adult Healthy Weight Tips; Status:Complete - Retrospective Authorization; Done: 30Sep2022 Some eating tips that can help you lose weight.; Status:Complete - Retrospective Authorization; Done: 30Sep2022 Paroxysmal atrial fibrillation Start: Sotalol HCl - 80 MG Oral Tablet; TAKE 1 TABLET EVERY 12 HOURS DAILY IO EKG Electrocardiogram- 12 Lead; Status:Complete; Done: 30Sep2022 IO EKG Electrocardiogram- 12 Lead; Status:Complete; Done: 30Sep2022 SocHx: Current every day smoker You need to quit smoking.; Status:Complete - Retrospective Authorization; Done: 30Sep2022 Tobacco Use Screening; Status:Complete; Done: 30Sep2022 You need to stop smoking. Though it is not easy, more than half of all adult smokers have quit. We encourage you to write down all the reasons you should quit smoking and set a quit date for yourself. Ask us how we can help. You may also call 1-679-XEGDNOW for free resources and assistance.; Status:Complete - Retrospective Authorization; Done: 30Sep2022 Patient Instructions Please bring all medicines, vitamins, and herbal supplements with you when you come to the office. Prescriptions will not be filled unless you are compliant with your follow up appointments or have a follow up appointment scheduled as per instruction of your physician. Refills should be requested at the time of your visit. EKG on Thursday 10/05 labs to be completed in 4 weeks Follow up in 6 months Chief Complaint SEN GARCIA is being seen for a 6 month follow-up of. Patient is in the office for follow after having a watchman's device implanted at [facility] 2022 with no complications. When his medication were reviewed he was not taking sotalol for no known reason. He will be placed back on the sotalol 80 mg twice daily which she has tolerated previously with no QT prolongation or arrhythmias. He continues to smoke and has no desire to quit smoking. His EKG today confirmed normal sinus rhythm. I notice he was taking only aspirin where he should be taking also Plavix after the watchman's device for 6 months. Will prescribe Plavix for him. He has had no bleeding complications recently. He reports no angina orthopnea PND or lower extremity edema. Lab data and other notes from his visit with Dr. Alex were reviewed by myself. Assessment/recommendat ions: 1?paroxysmal atrial fibrillation currently in sinus rhythm, he is supposed to be taking sotalol which she has not and I will place him back on what he has tolerated previously safely at 80 mg twice daily we will do EKG next week for confirmation of no QT prolongation. Patient is status post watchman's device implantation 2022. He is not on anticoagulants but he will be on aspirin Plavix for 6 months after which Plavix will be discontinued 2?active tobacco abuse, education provided to end tobacco use. He expressed no desire to quit smoking 3?COPD that is mild, advised patient to quit smoking altogether 4?history of coronary disease with no prior coronary interventions. Nuclear stress test March 2021 was normal, recommended aggressive risk factors modifications statin with tobacco cessation 5?hyperlipidemia on medical therapy with statin 6?diabetes managed by PCP. 7?overweight, encouraged patient to bring his BMI down with diet and exercise 8?remote history of stroke with no residual deficit 9?orthostatic hypotension on midodrine, blood pressure is normal today. Surgical History Pr (more content not included)... Normal Phone [facility] Tobacco Screening.on 023 Adult depression screening assessment No [facility] [employer] 250 DO Work Phone: Fall risk assessment a) No falls within the last year [facility] [employer] 250 DO Work Phone: Tobacco use status CPHS a) Yes M [facility] [employer] 250 DO Work Phone: Tobacco Screening. Yes [facility] 250 DO Work Phone: Glucose Glucometer (BldC) [M ass/Vol]Ordered By: Consuelo Johnson on 09-03-2022 Glucose [Mass/Vol] 112 mg/dL [facility] Comment on above: Random Glucose Refer ence Range is dependent on time and content of last meal. Glucose of more than 200 mg/dL in a nonstressed, ambulatory subject supports the diagnosis of Diabetes Mellitus. Glucose Poct Glucometerson 0 09-03-2022 Commemt1 Glu2: Cleaned Meter Normal [facility] Comment on above: Result Comment: PERF ORMED BY: [place] [address] PATHOLOGIST BUCKLE STRAP DRUM OPERATOR ARDEN MELTON M.D. Performed By: #### C MP, FE and TIBC, HAPT, RETIC, LDH, WILLIE, [id number], CBC #### [facility] [address] Glucose [Mass/Vol] 112 mg/dL Normal [facility] Comment on above: Result Comment: [place] Glucose Reference Range is dependent on time and content of last meal. Glucose of more than 200 mg/dL in a nonstressed, ambulatory subject supports the diagnosis of Diabetes Mellitus. Performed By: #### C MP, FE and TIBC, HAPT, RETIC, LDH, WILLIE, [id number], CBC #### [facility] [address] Armando 09-03-2022 L -- ---- Specimen: [id number] Received: 09/03/22 [facility] Num: [id number] Spec Type: Surgical Subm Dr: Consuelo Johnson MD Tissues: A Gastric Biopsy (GASTRIC BX) B Esophagus Biopsy (ESOPHAGUS BX) Procedures: HE/4, Gross/Micro L4/2 ---- Age/ Patient Sex Location Account Attending Physician ---- Sen Garcia 71/[facility] [id number] Consuelo Johnson MD ---- SPEC NUM: [id number] RECD: 09/03/22 STATUS: LUIS RAMACHANDRAN NUM: [id number] SAM: 09/03/22- [facility] DR: Consuelo Johnson MD ENTERED: 09/03/22 [facility] DR: TATA TYPE: Surgical DEPT: S ORDERED: HE/4, Gross/Micro L4/2 ORDERED: HE/4, Gross/Micro L4/2 Pathological Diagnosis A. Stomach, gastric, biopsy: - Reactive gastropathy. - Negative for Helicobacter pylori on H E stain. B. Esophagus, biopsy: - Moderate acute and chronic gastroesophagitis with focal mucosal erosion and reactive epithelial changes. - Negative for Tenorio?s esophagus. - Negative for eosinophilic esophagitis. Clinical Information Anemia, rectal bleeding, rule out H. pylori by IHC, rule out Tenorio's Gross Description A. Received in formalin labeled with the patient's name, number and gastric biopsy rule out H. pylori by IHC is one fragment of soft paige tissue measuring 0.4 x 0.3 x 0.2 cm. Entirely submitted in one cassette labeled A1. B. Received in formalin labeled with the patient's name, number and esophagus biopsy rule out Tenorio's are two fragments of soft paige tissue averaging 0.3 x 0.2 x 0.1 cm. Entirely submitted in one cassette labeled B1. ---- Specimen: Received: 09/03/22 Status: LUIS Ramachandran Num: [id number] Spec Type: Surgical Subm Dr: Consuelo Johnson MD Tissues: A Gastric Biopsy (GASTRIC BX) B Esophagus Biopsy (ESOPHAGUS BX) Procedures: HE/4, Gross/Micro L4/2 ---- Patient: Sen Garcia [id number] (Continued) ---- Specimen: Received: 09/03/22 (Continued) Signed (signature on file) Shanell Shea MD 09/04/22 1112 ---- Specimen: Received: 09/03/22 Status: LUIS Ramachandran Num: [id number] Spec Type: Surgical Subm Dr: Consuelo Johnson MD Tissues: A Gastric Biopsy (GASTRIC BX) B Esophagus Biopsy (ESOPHAGUS BX) Procedures: HE/4, Gross/Micro L4/2 ---- Patient: Sen Garcia [id number] (Continued) ---- Specimen: Received: 09/03/22 (Continued) Microscopic Description A. Two glass slides with H E stained material have been examined. The microscopic findings support the above pathologic diagnosis. B. Two glass slides with H E stained material have been examined. The microscopic findings support the above pathologic diagnosis. CPT Codes 24601?2 ---- ---- Specimen: [id number] Received: 09/03/22 Status: LUIS Ramachandran Num: [id number] Spec Type: Surgical Subm Dr: Consuelo Johnson MD Tissues: A Gastric Biopsy (GASTRIC BX) B Esophagus Biopsy (ESOPHAGUS BX) Procedures: HE/Alexandra, Gross/Benita L4/2 ---- Patient: Sen Garcia [id number] (Continued) ---- Signed (signature on file) Shanell Shea MD 09/04/22 1112 Normal [facility] No Panel InformationOrdered By: Consuelo Johnson on 09-03-2022 Bedside Glucose Comment Glu2: cleaned meter [facility] CT Watchman Full Contraston 08-25-2022 CT Watchman Full Contrast Normal [facility] 1800 [place] Work Phone: Echocardiogramon 08-25-2022 Echocardiography [facility], [id number] [place] [address] and TRANSTHORACIC ECHOCARDIOGRAM REPORT Patient Name: SEN GARCIA Reading Physician: [id number] Brent Mendez MD Study Date: 08/25/2022 Referring BRUCE WOLF Physician: MRN/PID: [id number] PCP: Accession/Order#: [id number] [facility] Lab Date of : 1950 Fellow: Gender: M Nurse: Admit Date: 08/25/2022 Line Up Machine Operator: Massiel La [facility] Admission Status: Inpatient - Time Additional Staff: Critical Height: 170.00 cm CC [facility] [place] [facility] Weight: 85.00 kg Study Type: Echocardiogram BSA: 1.97 m2 Diagnosis/ICD: I48.91-Unspecified atrial fibrillation Indication: S/P LAAO Procedure/CPT: Echo Limited-16041 Patient History: Pertinent History: CAD, COPD, A-Fib and Hyperlipidemia. S/P LAAO. Study Detail: The following Echo studies were performed: 2D. Technically challenging study due to body habitus and patient lying in supine position. PHYSICIAN INTERPRETATION: Left Ventricle: The left ventricular systolic function is normal. There are no regional wall motion abnormalities. The left ventricular cavity size is normal. Left ventricular diastolic filling was not assessed. Left Atrium: The left atrium is normal in size. Right Ventricle: The right ventricle is normal in size. There is normal right ventricular global systolic function. Right Atrium: The right atrium is normal in size. Aortic Valve: The aortic valve was not well visualized. Aortic valve regurgitation was not assessed. Mitral Valve: The mitral valve is normal in structure. Mitral valve regurgitation was not assessed. Tricuspid Valve: The tricuspid valve is structurally normal. Tricuspid regurgitation was not assessed. Pulmonic Valve: The pulmonic valve is structurally normal. Pulmonic valve regurgitation was not assessed. Pericardium: There is a trivial pericardial effusion. There is an anterior clear space. Aorta: The aortic root is normal. In comparison to the previous echocardiogram(s): Compared with study from 08/25/2022, no significant change. CONCLUSIONS: 1. Left ventricular systolic function is normal. QUANTITATIVE DATA SUMMARY: [id number] Brent Mendez MD Electronically signed on 08/25/2022 at 4:25:12 PM Final Normal [facility] Echocardiography [facility], [address] [place] [address] and TRANSTHORACIC ECHOCARDIOGRAM REPORT Patient Name: SEN GARCIA Reading Physician: [id number] Brent Mendez MD Study Date: 08/25/2022 Referring BRUCE WOLF Physician: MRN/PID: [id number] PCP: Accession/Order#: [id number] [facility] [place] Location: Date of : 1950 Fellow: Gender: M Nurse: Admit Date: Line Up Machine Operator: Michaela Marsh [facility] Admission Status: Inpatient - Additional Staff: Routine Height: 170.18 cm CC Report to: Weight: 85.28 kg Study Type: Echocardiogram BSA: 1.97 m2 Diagnosis/ICD: Z01.810-Encounter for preprocedural cardiovascular examination Indication: Pre LAAO Procedure/CPT: Echo Limited-03931 Study Detail: The following Echo studies were performed: 2D. PHYSICIAN INTERPRETATION: Left Ventricle: The left ventricular systolic function is normal, with an estimated ejection fraction of 55-60%. There are no regional wall motion abnormalities. The left ventricular cavity size is normal. Left ventricular diastolic filling was not assessed. Left Atrium: The left atrium is normal in size. Right Ventricle: The right ventricle is normal in size. There is normal right ventricular global systolic function. Right Atrium: The right atrium is normal in size. Aortic Valve: The aortic valve is trileaflet. Aortic valve regurgitation was not assessed. Mitral Valve: The mitral valve is normal in structure. Mitral valve regurgitation was not assessed. Tricuspid Valve: The tricuspid valve is structurally normal. Tricuspid regurgitation was not assessed. Pulmonic Valve: The pulmonic valve was not assessed. Pulmonic valve regurgitation was not assessed. Pericardium: There is a trivial pericardial effusion. There is an anterior clear space. Aorta: The aortic root is normal. In comparison to the previous echocardiogram(s): Although previous studies are available for review, their comparison with the current echocardiogram is clinically irrelevant. CONCLUSIONS: 1. Left ventricular systolic function is normal with a 55-60% estimated ejection fraction. 2. There is a trivial pericardial effusion. QUANTITATIVE DATA SUMMARY: [id number] Brent Mendez MD Electronically signed on 08/25/2022 at 4:26:29 PM Final (Updated) Normal [facility] Electrocardiogram 12 Leadon 08-25-2022 Electrocardiogram 12 Lead Ventricular Rate 86 Atrial Rate 86 P-R Interval 160 QRS Duration 106 Q-T Interval 378 QTC Calculation(Bazett) 452 P [place] 81 R [place] -71 T [place] 69 QRS Count 15 Q Onset 209 P Onset 129 P Offset 187 T Offset 398 QTC Fredericia 426 Diagnosis Class Abnormal Diagnosis Normal sinus rhythm Left anterior fascicular block Abnormal ECG No previous ECGs available Confirmed by Jamin Landis ([id number]) on 08/31/2022 3:58:37 PM Normal [facility] GLUCOSE-POCTon 08-25-2022 Glucose [Mass/Vol] 97 mg/dL Normal 74 - 99 [facility] Comment on above: Performed By: #### G JOSSELIN ####[id number] [facility] [address] LAAC-Left Atrial Appendage C losureon 08-25-2022 LAAC-Left Atrial Appendage Closure [facility], [place], [address] [place] [address] Cardiovascular Catheterization Report Patient Name: SEN HERNANDEZEVER Performing Physician: [id number] Katia Alex MD Study Date: 08/25/2022 Verifying Physician: [id number] Alex MD MRN/PID: [id number] Chief Wellness Officer/Co-scrub: Accession/Order#: [id number] Fellow: [id number] Eloisa Fallon MD Date of : 1950 Fellow: Gender: M Referring Physician: KATIA ALEX Admit Date: Referring Physician: lenore Surgeon: Referring Physician: [id number] Israel Escamilla MD, [facility] Study: LAAC-Left Atrial Appendage Closure Procedure Description Comments: Sterile prep and appropriate procedure timeout were performed. Using ultrasound guidance and micropuncture technique dual access was obtained in the right common femoral vein. Two 8F sheaths were placed using a modified Seldinger technique. The patient was administered IV Heparin and ACT was confirmed to be therapeutic. An AcuNav ICE probe was then advanced through one of the sheaths and under ICE guidance, transseptal puncture was with a Colver needle, accessing the left atrium. The transseptal tract was then dilated with a Watchman Fixed Curve access sheath and the ICE probe was advanced through the dilated tract into the left atrium. Next, a 6 Maltese angled pigtail was advanced through the delivery sheath into the left atrial appendage and angiography was performed via the pigtail. Sizing of the device was confirmed by ICE and angiography. We then advanced a 20mm Watchman Closure Device and confirmed placement both by ICE and angiography. A tug test was performed and confirmed stability. No color Doppler flow around the device was appreciated. 16% device compression was also confirmed. Having satisfied position, anchoring, size and seal criteria, the device was successfully deployed. All equipment was then removed and hemostasis was facilitated by Vascade closure devices and manual pressure. The patient was enrolled in a research study and data was included in the [facility] registry. CTA at 4 months is required to reassess device positioning and rule out any device leak or device related thrombus. Hemo Personnel: + + + Name Duty + + + Katia Alex MD PROC 1 + + + Bailey Obrien RN PROC CIRC 1 + + + Randy Saleh RN PROC CIRC 2 + + + Krishan Pendleton RN PROC NURSE 1 + + + Stephanie Correa PROC MACHINE STONE POLISHER 1 + + + Eloisa Fallon MD FELLOW PHYS 1 + + + Sedation Time: + ---+ + Sedation Start/End Times Time + ---+ + Start 08/25/2022 13:21:29 + ---+ + Drugs Fentanyl 50 mcg IV per physician for sed + ---+ + End 08/25/2022 14:10:19 + ---+ + Equipment Used: + + + Date/Time Description + + + 08/25/2022 1:09:15 PM {4F Sheaths} [employer] 4fr x 10cm S-KARUNA Mini Access Kit - Qty: 2 Each Part #: [id number] + + + 08/25/2022 1:09:21 PM {7F Sheaths} - Ultimum introducer 7 Fr x 12cm - Qty: 1 Each Part #: [id number] + + + 08/25/2022 1:09:28 PM {8F Sheaths} - Ultimum introducer 8 Fr x 12 cm - Qty: 1 Each Part #: 393 + + + 08/25/2022 1:09:32 PM {8F Sheaths} - Ultimum introducer 8 Fr x 23cm - Qty: 1 Each Part #: 394 + + + 08/25/2022 1:09:46 PM {10-24F Sheaths} - Fast-Cath Sheath Straight 12 Fr x 12cm - Qty: 1 Each Part #: [id number] + + + 08/25/2022 1:09:52 PM {6Fr C Catheters} [employer] 6 Fr [id number] Impulse x 100cm - Qty: 1 Each Part #: 294 + + + 08/25/2022 1:10:03 PM {Diagnostic Wires} Denis Tabor .035mm x 145cm Fixed core - Qty: 1 Each Part #: 953 + + + 08/25/2022 1:10:06 PM {Closure Devices} CARDIVA 6-10 Fr Vascade MVP Venous Vascular Closure System - Qty: 2 Each Part #: 800 (more content not included)... Normal [facility] Laboratory - Chemistry and C hemistry - challengeon 08-25-2022 Glucose [Mass/Vol] 97 mg/dL 74 - 99 [facility] [address] [place] Work Phone: No Panel Informationon 08-25 [facility] [address] [place] Work Phone: [email or web address] [id number]&Date= 3&Time=10%3a00%3a35%3a 00&TestType=ECG&Site=1 &OutputType=PDF&Ext=PD F [facility] [address] [place] Work Phone: Normal sinus rhythm [facility] rdiolog [facility] [address] [place] Work Phone: [phone] Abnormal [facility] [address] [place] Work Phone: [phone] 1 [facility] [address] [place] Work Phone: [phone] 1 [facility] [address] [place] Work Phone: [phone] 1 [facility] [address] [place] Work Phone: [phone] 1 [facility] [address] [place] Work Phone: [phone] 1 [facility] [address] [place] Work Phone: [phone] [facility] [address] [place] Work Phone: [phone] [facility] [address] [place] Work Phone: [phone] [facility] [address] [place] Work Phone: [phone] [facility] [address] [place] Work Phone: [phone] 1 [facility] [address] [place] Work Phone: [phone] [facility] [address] [place] Work Phone: [phone] [facility] [address] [place] Work Phone: [phone] 1 [facility] [address] [place] Work Phone: [phone] [facility] [address] [place] Work Phone: Order Reconciliationon 08-25 Order Reconciliation Page 1 Discharge Reconciliation Document Reconciliation Type: Discharge requested on behalf of Eloisa Fallon (Fellow) done by Eloisa Fallon ( (Fellow)) Discharge - Reconciliation: 25-Aug-2022 14:17 by: Eloisa Fallon ( (Fellow)) Home Medications EnteredHOME MEDICATIONS AT DISCHARGE DateReconciliation Comment/ Additional Information cyclobenzaprine 10 mg oral tablet 1 tab(s) orally 3 times a day, As Needed 25-Aug-2022 10:31 cyclobenzaprine 10 mg oral tablet 1 tab(s) orally 3 times a day, As Needed 25-Aug-2022 10:31 cyclobenzaprine 10 mg oral tablet is continued as cyclobenzaprine 10 mg oral tablet docusate sodium 100 mg oral capsule 1 cap(s) orally once a day, As Needed 25-Aug-2022 10:31 docusate sodium 100 mg oral capsule 1 cap(s) orally once a day, As Needed 25-Aug-2022 10:31 docusate sodium 100 mg oral capsule is continued as docusate sodium 100 mg oral capsule ferrous sulfate 325 mg (65 mg elemental iron) oral tablet 1 tab(s) orally 2 times a day 25-Aug-2022 10:34 ferrous sulfate 325 mg (65 mg elemental iron) oral tablet 1 tab(s) orally 2 times a day 25-Aug-2022 10:34 ferrous sulfate 325 mg (65 mg elemental iron) oral tablet is continued as ferrous sulfate 325 mg (65 mg elemental iron) oral tablet hydrocodone-acetaminop hen 7.5 mg-325 mg oral tablet 1 tab(s) orally every 6 hours, As Needed 25-Aug-2022 10:32 hydrocodone-acetaminop hen 7.5 mg-325 mg oral tablet 1 tab(s) orally every 6 hours, As Needed 25-Aug-2022 10:32 hydrocodone-acetaminop hen 7.5 mg-325 mg oral tablet is continued as hydrocodone-acetaminop hen 7.5 mg-325 mg oral tablet omeprazole 40 mg oral delayed release capsule 1 cap(s) orally once a day 25-Aug-2022 10:32 omeprazole 40 mg oral delayed release capsule 1 cap(s) orally once a day 25-Aug-2022 10:32 omeprazole 40 mg oral delayed release capsule is continued as omeprazole 40 mg oral delayed release capsule pioglitazone 15 mg oral tablet 1 tab(s) orally once a day 25-Aug-2022 10:30 pioglitazone 15 mg oral tablet 1 tab(s) orally once a day 25-Aug-2022 10:30 pioglitazone 15 mg oral tablet is continued as pioglitazone 15 mg oral tablet simvastatin 40 mg oral tablet 1 tab(s) orally once a day (at bedtime) 25-Aug-2022 10:33 simvastatin 40 mg oral tablet 1 tab(s) orally once a day (at bedtime) 25-Aug-2022 10:33 simvastatin 40 mg oral tablet is continued as simvastatin 40 mg oral tablet tamsulosin 0.4 mg oral capsule 2 cap(s) orally once a day 25-Aug-2022 10:31 tamsulosin 0.4 mg oral capsule 2 cap(s) orally once a day 25-Aug-2022 10:31 tamsulosin 0.4 mg oral capsule is continued as tamsulosin 0.4 mg oral capsule venlafaxine 75 mg oral capsule, extended release 1 cap(s) orally once a day 25-Aug-2022 10:36 venlafaxine 75 mg oral capsule, extended release 1 cap(s) orally once a day 25-Aug-2022 10:36 venlafaxine 75 mg oral capsule, extended release is continued as venlafaxine 75 mg oral capsule, extended release zolpidem 10 mg oral tablet 1 tab(s) orally once a day (at bedtime) 25-Aug-2022 10:33 zolpidem 10 mg oral tablet 1 tab(s) orally once a day (at bedtime) 25-Aug-2022 10:33 zolpidem 10 mg oral tablet is continued as zolpidem 10 mg oral tablet Current OrdersDateHOME MEDICATIONS AT DISCHARGE DateReconciliation Comment/ Additional Information Aspirin Chewable Tablet, ChewableDOSE = 324 mg Oral Once 24-Aug-2022 11:11 Aspirin Chewable is not required ceFAZolin 2 gram/ D5W 100 mL Premix IVPB (ANCEF)OnceRecommended Infusion Time: 30 minute(s)Clinician Notes: for patients 120 kg or less 24-Aug-2022 11:11 ceFAZolin 2 gram/ D5W 100 mL Premix IVPB is not required Lactated Ringers Infusion IV Bag Volume = 1,000 mL Run at: 75 mL/hr IntraVenous 24-Aug-2022 11:11 Lactated Ringers Infusion is not required Perflutren Lipid Microsphere (Activated) 1.3 mL / NaCL 0.9% T.V. 10 mL Injectable DOSE = 0.5 mL IntraVenous Push OnceClinician Notes: 1. Dilute 1.3 mL of activated DEFINITY with 8.7 mL of normal saline in a 10 mL syringe.2. Inject 0.5 mL of diluted 24-Aug-2022 11:11 Perflutren Lipid Microsphere (Activated) 1.3 mL / NaCL 0.9% T.V. 10 mL Injectable is not required Sodium Chloride 0.9% Injectable Flush via Peripheral LineVolume = 3 mL IntraVenous Flush Every 8 Hours and as Needed 24-Aug-2022 11:11 Sodium Chloride 0.9% Injectable Flush is not required Home Medications Added During Discharge Reconciliation Aspirin Enteric Coated 81 mg oral delayed release tablet 1 tab(s) orally once a day clopidogrel 75 mg oral tablet 1 tab(s) orally once a day All Active Home Medications at time of Discharge Reconciliation: 25-Aug-2022 14:17 Aspirin Enteric Coated 81 mg oral delayed release tablet 1 tab(s) orally once a day clopidogrel 75 mg oral tablet 1 tab(s) orally once a day cyclobenzaprine 10 mg oral tablet 1 tab(s) orally 3 times a day, As Needed docusate sodium 100 mg oral capsule 1 cap(s) orally once a day, As Needed ferrous sulfate 325 mg (65 mg buckland (more content not included)... Normal [facility] CT WATCHMAN FULL CONTRAST on 08-25-[address] WATCHMAN FULL CONTRAST Patient Name: SEN GARCIA STUDY: TH CT WATCHMAN FULL CONTRAST; 08/25/2022 9:43 am INDICATION: pre procedure FIDELIA sizing and thrombus detection I48.0: Paroxysmal atrial fibrillation. COMPARISON: None. ACCESSION NUMBER(S): [id number] ORDERING CLINICIAN: KATIA ALEX TECHNIQUE: Using multi detector CT technology,axial imaging with prospective gating was performed of the chest following the intravenous administration of contrast material. A low-osmolar contrast agent was used ( 70 milliliterOMNIPAQUE 350). Next, the imaging was repeated with prospective gating after 10 sec delay as per watchdenmark protocol. Also, patient received 500 mL of normal saline prior to exam as per protocol. For optimization of anatomic evaluation, multiplanar reconstruction, maximum intensity projections, and advanced 3-D off-line postprocessing were performed on a dedicated stand-alone workstation under the direct supervision of the interpreting physician. CT Dose-Length Product (DLP): 719 mGy*cm CT Dose Reduction Employed: Yes (Prospective triggering, iterative reconstruction) FINDINGS: POTENTIAL STUDY LIMITATIONS: None CORONARY ARTERIES: CORONARY ANATOMY: There is normal origin of the coronary arteries. Right dominant system. Although the study is not optimized for assessment of coronary arteries, there is no gross evidence of obstructive coronary artery disease. There are scattered nonobstructive calcified correlate with clinical symptoms and concern for myocardial infarction. CARDIAC CHAMBERS: The cardiac chambers demonstrate normal atrioventricular and ventriculoarterial concordance, and systemic and pulmonary venous return. LEFT ATRIUM: Nondilated (14.1-cm2). There is no evidence of left atrium or left atrial appendage thrombus. The left atrial appendage orifice is oval in shape, measuring 2.0 cm x 2.1 cm in orthogonal dimensions and with an area of 2.9 cm. Sq. Left atrial appendage depth is 3.3 cm. RIGHT ATRIUM: Normal size ( - cm2) VENTRICLES: The left and right ventricles appear normal in appearance, although accurate size measurements are not possible on systolic phase imaging. INTERATRIAL SEPTUM: Intact. There is bowing of the fossa ovalis without gross evidence of kjqyh-vt-ltym shunting. INTERVENTRICULAR SEPTUM: Intact. AORTIC VALVE: The aortic valve is trileaflet in morphology. No valvular thickening or calcifications. MITRAL VALVE: No valvular thickening/calcificati on. THORACIC AORTA: The thoracic aorta normal in course and caliber.There is no evidence for acute aortic pathology, such as dissection, intramural hematoma, or contained rupture. The aortic arch is not included on this examination. PERICARDIUM: There is no pericardial effusion seen. CHEST: The trachea and central airways are patent. No endobronchial lesion is seen. There is diffuse peribronchial thickening. There is moderate emphysematous changes. There is a focus of lingular atelectasis. There is subcarinal and right hilar calcified lymphadenopathy.. Visualized esophagus appears within normal limits as seen. UPPER ABDOMEN: The visualized subdiaphragmatic structures demonstrate no remarkable findings. CHEST WALL AND OSSEOUS STRUCTURES: Visualized chest wall is within normal limits. No acute osseous pathology.There are no suspicious osseous lesions within included chest. IMPRESSION: 1. No evidence of left atrial/left atrial appendage thrombus. 2. The left atrial appendage orifice is oval in shape, measuring 2.0 cm x 2.1 cm in orthogonal dimensions and with an area of 2.9 cm. sq. Left atrial appendage depth is 3.3 cm. 3. Normal coronary anatomy without evidence of atherosclerotic changes or stenotic disease. Please note, the study is not optimized for evaluation of coronary arteries. 4. Peribronchial thickening and emphysematous changes and correlate with a history of small airway disease. Electronically signed by: Rashaad SOLORZANO MD Normal [facility] Discharge [id number] Discharge Profile2 Discharge Orders: Anticipated Discharge Date: Anticipated Discharge [id number] Problem List: Medical History: Presence of Watchman left atrial appendage closure device: Catalog Name: Presence of other cardiac implants and grafts DNAR: Code Status at Discharge: Full Code Additional Orders: Additional Instructions Anticoagulation Plan: You are being discharged on Aspirin and Plavix for 6 months (Plavix will be stopped after 6 months and you will remain on 81mg Aspirin for life). You will have a 4 month CTA to assess the effectiveness of the Watchman Device. Call Provider If (Homegoing Patients): Breathing faster than normal. Breathing harder than normal or having retractions. Fever of 100.4 F (38 C) or higher. Chills. Drinking less than normal. Urinating less than normal, over 1 day. Acting very sleepy and difficult to awaken. Vomiting (throwing up) and not able to eat or drink for 12 hours. 3 or more loose, watery bowel movements in 24 hours (diarrhea). Any new concerning symptoms. [facility] Interventional: Patient Instructions, Next 24 hours: DO NOT drink any alcoholic drinks or take any non-prescriptive medications that contain alcohol for the first 24 hours. DO NOT make any important decisions for the first 24 hours. Activity: You are advised to go directly home from the hospital. DO NOT lift anything heavier than 10 pounds for one week, this allows for proper healing of the groin. No excessive exercise or treadmill use for one week. You may walk and do stairs, slowly. No sexual activities for 24 hours after you arrive home. Wound Care: If slight bleeding should occur at site, lie down and have someone apply firm pressure just above the puncture site for 5 minutes. If it continues or is profuse, call 911. Always notify your doctor if bleeding occurs. Keep site clean and dry. Let air dry or you may use a simple bandaid. Gently cleanse the puncture site in your groin with soap and water only. You may experience some tenderness, bruising or minimal inflammation. If you have any concerns, you may contact the [facility] or if any of these symptoms become excessive, contact your hotel operations manager or go to the emergency room. No tub baths, soaking, or swimming for one week. May shower the next day after your procedure. Diet: You may resume your normal diet. However it is better to start with liquids such as juices then soup and crackers, and gradually work up to solid foods. Other Instructions: If you develop diffficulty breathing, rash, hives, severe nausea, vomiting, light-headedness or any signs of infection, immediately contact your doctor and go to the nearest emergency room. You must take your aspirin, clopidogrel (Plavix), prasugrel (Effient), or ticagrelor (Brilinta) every day without missing a single dose. If you are getting low on these medications, contact your physician immediately for a refill. Heart Failure: Patient Instructions: - CALL 911 IF YOU HAVE ANY OF THE SIGNS AND SYMPTOMS OF HEART FAILURE: 1. Chest pain 2. Significant Shortness of breath 3. Fainting. - Notify your physician immediately if you have shortness of breath; weight gain of 3 lbs. or more; fatigue and loss of energy; swelling of lower extremities or abdomen; dizziness or fainting; change of appetite; and frequent coughing. - Patient received Living With Heart Failure book. - Daily weight on the same scale, same time after voiding and before eating. - Maintain daily weight log. Activity: - Balance activity with rest, gradually increase your activity as tolerated. - Exercise as prescribed by your physician. Hospital Course (Home Care/Gold Form): Hospital Course: Hospital Course: include significant abnormal lab values PCP: Dr. Abreu Chief Wellness Officer: Dr. Escamilla I was asked by Dr. Escamilla to evaluate this patient in consultation for evaluation of left atrial appendage closure. Sen Garcia is a 71-year-old diabetic male with coronary artery disease, orthostatic hypotension, COPD, history of CVA and paroxysmal atrial fibrillation. Patient has been managed with a rhythm control strategy using sotalol and anticoagulated with warfarin. He has hyperdynamic left ventricular systolic function based on transthoracic echocardiogram performed May 2022 with LVEF greater than 65%. He has no history of significant valvular heart disease. The patient stroke was in 2000 and as best I can tell he received thrombolysis. He has some residual left-sided both upper and lower extremity weakness. The patient has had a number of falls both mechanical falls and falls related to his orthostatic hypotension. On one occasion, the patient fell and hit the corner of his trailer resulting in loss of consciousness and head injury. However he did not seek emergency attention on this occasion. Pa (more content not included)... Normal [facility] BASIC METABOLIC PANELon 03-0 Anion gap [Moles/Vol] 10 mmol/L Normal 10 - 20 [facility] Comment on above: Performed By: #### B MP #### [address] [id number] Calcium [Mass/Vol] 9.3 mg/dL Normal 8.6 - 10.3 [facility] Comment on above: Performed By: #### B MP #### [address] [id number] Chloride [Moles/Vol] 103 mmol/L Normal 98 - 107 [facility] Comment on above: Performed By: #### B MP #### [address] [id number] Creatinine [Mass/Vol] 0.71 mg/dL Normal 0.50 - 1.30 [facility] Comment on above: Performed By: #### B MP #### [address] [id number] eGFR MALE >90 Normal >90 [facility] Comment on above: Result Comment: CALC ULATIONS OF ESTIMATED GFR ARE PERFORMED USING THE 2020 CKD-EPI STUDY REFIT EQUATION WITHOUT THE RACE VARIABLE FOR THE IDMS-TRACEABLE CREATININE METHODS. https://jasn.asnjournals.org/content/early//ASN.2020 398912 Performed By: #### B MP #### [address] [id number] Glucose [Mass/Vol] 98 mg/dL Normal 74 - 99 [facility] Comment on above: Performed By: #### B MP #### [address] [id number] HCO3 (Bld) [Moles/Vol] 32 mmol/L Normal 21 - 32 [facility] Comment on above: Performed By: #### B MP #### [address] [id number] Potassium [Moles/Vol] 4.4 mmol/L Normal 3.5 - 5.3 [facility] Comment on above: Performed By: #### B MP #### [address] [id number] Sodium [Moles/Vol] 141 mmol/L Normal 136 - 145 [facility] Comment on above: Performed By: #### B MP #### [address] [id number] Urea nitrogen [Mass/Vol] 12 mg/dL Normal 6 - 23 [facility] Comment on above: Performed By: #### B MP #### [facility] [address] [place], [place] [id number] CBCon 08-05-2022 Erythrocyte distribution width (RBC) [Ratio] 13.6 % Normal 11.5 - 14.5 [facility] Comment on above: Performed By: #### C BC ####[facility] [place], [place] [id number] Hematocrit (Bld) [Volume fraction] 44.8 % Normal 41.0 - 52.0 [facility] Comment on above: Performed By: #### C BC ####[facility] [place], [place] [id number] Hemoglobin (Bld) [Mass/Vol] 14.1 g/dL Normal 13.5 - 17.5 [facility] Comment on above: Performed By: #### C BC ####[facility] [place], [place] [id number] MCHC (RBC) [Mass/Vol] 31.5 g/dL Low 32.0 - 36.0 [facility] Comment on above: Performed By: #### C BC ####[facility] [place], [place] [id number] MCV (RBC) [Entitic vol] 97 fL Normal 80 - 100 [facility] Comment on above: Performed By: #### C BC ####[facility] [place], [place] [id number] Platelets (Bld) [#/Vol] 131 10*3/uL Low 150 - 450 [facility] Comment on above: Performed By: #### C BC ####[facility] [place], [place] [id number] RBC 4.62 x10E12/L Normal 4.50 - 5.90 [facility] Comment on above: Performed By: #### C BC ####[facility] [place] [phone] WBC (Bld) [#/Vol] 6.2 10*3/uL Normal 4.4 - 11.3 [facility] Comment on above: Performed By: #### C ####[facility] [place], [place] [id number] Laboratory - Chemistry and C hemistry - challengeon 08-05-2022 Anion gap [Moles/Vol] 10 mmol/L 10 - 20 [facility] [address] [place] Work Phone: [phone] Calcium [Mass/Vol] 9.3 mg/dL 8.6 - 10.3 [facility]Car diolog [facility] [address] [place] Work Phone: [phone] Chloride [Moles/Vol] 103 mmol/L 98 - 107 [facility]C ardiolog [facility] [address] [place] Work Phone: [phone] CO2 [Moles/Vol] 32 mmol/L 21 - 32 [facility]Cardio log [facility] [address] [place] Work Phone: [phone] Creatinine [Mass/Vol] 0.71 mg/dL See Below [facility] Cardiolog [facility] [address] [place] Work Phone: [phone] Comment on above: Reference Range: 0.5 0 - 1.30 Glucose [Mass/Vol] 98 mg/dL 74 - 99 [facility] diolog [facility] [address] [place] Work Phone: [phone] Potassium [Moles/Vol] 4.4 mmol/L 3.5 - 5.3 [facility] [address] [place] Work Phone: [phone] Sodium [Moles/Vol] 141 mmol/L 136 - 145 [facility] diolog [facility] [address] [place] Work Phone: [phone] Urea nitrogen [Mass/Vol] 12 mg/dL 6 - 23 [facility] [address] [place] Work Phone: [phone] Laboratory - Hematology and Cell countson 08-05-2022 Erythrocyte distribution width (RBC) [Ratio] 13.6 % See Below [facility] [address] [place] Work Phone: Comment on above: Reference Range: 11. 5 - 14.5 Hematocrit (Bld) [Volume fraction] 44.8 % See Below [facility] [address] [place] Work Phone: Comment on above: Reference Range: 41. 0 - 52.0 Hemoglobin (Bld) [Mass/Vol] 14.1 g/dL See Below [facility] [address] [place] Work Phone: Comment on above: Reference Range: 13. 5 - 17.5 MCHC (RBC) [Mass/Vol] 31.5 g/dL below low threshold See Below [facility] [address] [place] Work Phone: Comment on above: Reference Range: 32. 0 - 36.0 MCV (RBC) [Entitic vol] 97 fL 80 - 100 [facility] [address] [place] Work Phone: Platelets (Bld) [#/Vol] 131 10*3/uL below lo w threshold 150 - 450 [facility] [address] [place] Work Phone: RBC (Bld) [#/Vol] 4.62 {x10E12/L} See Below [facility] [address] [place] Work Phone: Comment on above: Reference Range: 4.5 0 - 5.90 WBC (Bld) [#/Vol] 6.2 10*3/uL 4.4 - 11.3 [facility] [address] [place] Work Phone: No Panel Informationon 08-05 >90 >90 [facility] [address] [place] Work Phone: Comment on above: CALCULATIONS OF YASIR MATED GFR ARE PERFORMED USING THE 2020 CKD-EPI STUDY REFIT EQUATION WITHOUT THE RACE VARIABLE FOR THE IDMS-TRACEABLE CREATININE METHODS.https://jasn.asnjournals.org/content// ASN.3015745339 Office Visit (Cardiology)on 08-05-2022 Follow-up visit Diagnoses/Problems Assessed Paroxysmal atrial fibrillation (427.31) (I48.0) Chief Complaint SEN GARCIA is being seen for a cardiovascular evaluation . LAAO. History of Present Illness PCP: Dr. Abreu Chief Wellness Officer: Dr. Escamilla I was asked by Dr. Escamilla to evaluate this patient in consultation for evaluation of left atrial appendage closure. Sen Garcia is a 71-year-old diabetic male with coronary artery disease, orthostatic hypotension, COPD, history of CVA and paroxysmal atrial fibrillation. Patient has been managed with a rhythm control strategy using sotalol and anticoagulated with warfarin. He has hyperdynamic left ventricular systolic function based on transthoracic echocardiogram performed May 2022 with LVEF greater than 65%. He has no history of significant valvular heart disease. The patient stroke was in 2000 and as best I can tell he received thrombolysis. He has some residual left-sided both upper and lower extremity weakness. The patient has had a number of falls both mechanical falls and falls related to his orthostatic hypotension. On one occasion, the patient fell and hit the corner of his trailer resulting in loss of consciousness and head injury. However he did not seek emergency attention on this occasion. Patient has had labile INRs and recent lower GI bleed in May 2022 presenting with a hemoglobin of 7.7 requiring 2 units of packed red blood cells transfusion. He was also administered vitamin K for an INR 3.3. He was seen in consultation by general surgery. Endoscopy was performed both upper and lower. However etiology of his bleed is unknown. Date of admission June 12, 2022. Date of discharge June 14, 2022. Capsule endoscopy is being discussed. Since his discharge, the patient is not had any recurrent hematochezia. He also denies any melena, hematemesis or hemoptysis. He has been taken off of anticoagulation but remains on sotalol. Given the patient's significant GI bleed and anemia requiring transfusion as well as his history of orthostasis and falls, he is referred for consideration of left atrial appendage closure for stroke risk reduction. 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) CAD (coronary artery disease) (414.00) (I25.10) COPD (chronic obstructive pulmonary disease) (496) (J44.9) Current every day smoker (305.1) (F17.200) 1 ppd CVA (cerebral vascular accident) (434.91) (I63.9) Diabetes mellitus (250.00) (E11.9) Dizziness (780.4) (R42) High risk medication use (V58.69) (Z79.899) Hyperlipidemia (272.4) (E78.5) Overweight with body mass index (BMI) of 28 to 28.9 in adult (278.02,V85.24) (E66.3,Z68.28) Surgical History Problems History of Back surgery History of Complete colonoscopy History of Elbow surgery History of Inguinal hernia repair History of Vasectomy Current Meds Medication NameInstruction Actos 15 MG Oral TabletTAKE 1 TABLET ONCE DAILY. Aspirin 81 MG Oral Tablet Delayed Releasetake one tablet on Wed and only Colace 100 MG Oral CapsuleTAKE CAPSULE prn Cyclobenzaprine HCl - 10 MG Oral TabletTAKE TABLET PRN Flomax 0.4 MG Oral CapsuleTAKE 1 CAPSULE Daily Midodrine HCl - 5 MG Oral TabletTake 1 tablet twice daily [place] 7.5-325 MG TABSTAKE 1 TABLET EVERY 6 HOURS NEEDED FOR PAIN. Omeprazole 40 MG Oral Capsule Delayed ReleaseTAKE 1 CAPSULE Daily Simvastatin 40 MG Oral TabletTAKE 1 TABLET AT BEDTIME Sotalol HCl - 80 MG Oral TabletTAKE 1 TABLET BY MOUTH TWICE DAILY Venlafaxine HCl - 75 MG Oral TabletTAKE 1 TABLET DAILY. Warfarin Sodium 2 MG Oral TabletTake as directed by Dr. Abreu Zolpidem Tartrate 10 MG Oral TabletTAKE 1 TABLET AT BEDTIME. Allergies Medication No Known Drug Allergies Recorded By: Vilma Baxter; 08/21/2021 10:52:48 AM Family History Mother Family history of lung cancer (V16.1) (Z80.1) Father Family history of arteriosclerotic cardiovascular disease (V17.49) (Z82.49) Sister FH: CABG (coronary artery bypass surgery) (V17.3) (Z82.49) Social History Problems Caffeine use (V49.89) (Z78.9) 2 pots coffee daily Current every day smoker (305.1) (F17.200) 1 ppd No alcohol use No illicit drug use Review of Systems Constitutional: not feeling tired, not feeling poorly, no fever and no chills. Eyes: no eyesight problems, no blurred vision, no diplopia, no eye pain and no purulent discharge from the eyes. ENT: no hearing loss, no nosebleeds, no tinnitus, no earache and no sore throat. Cardiovascular: no intermittent leg claudication, no chest pain, no tightness or heavy pressure, no shortness of breath, no palpitations and as noted in HPI. Respiratory: no chronic cough, no shortness of breath, not coughing up sputum, no shortness of breath during exertion, no wheezing that is consistent with asthma, no asthma, no orthopnea and no postural nocturnal d (more content not included)... Normal [employer] Tobacco Screening.on 023 Fall risk assessment a) No falls within the last year -Cardiolog [facility] [employer] [address] [employer] Work Phone: Tobacco use status CP a) Yes M -Cardiolog [facility] [employer] [address] [employer] Work Phone: Absolute reticulocyte countO rdered By: Mellissa Padilla on 08-04-2022 Reticulocytes (Bld) [#/Vol] 0.045 10*6/uL 0.024-0.084 [facility] Alanine aminotransferase [En zymatic activity/volume] in Serum or PlasmaOrdered By: Mellissa Padilla on 08-04-2022 ALT [Catalytic activity/Vol] 12 U/L 7-52 [facility] Albumin [Mass/volume] in Ser um or Plasma by Bromocresol green (BCG) dye binding methoOrdered By: Mellissa Padilla on 08-04-2022 Albumin BCG dye [Mass/Vol] 4.5 g/dL 3.5-5.7 [facility] Alkaline phosphatase [Enzyma tic activity/volume] in Serum or PlasmaOrdered By: Mellissa Padilla on 08-04-2022 ALP [Catalytic activity/Vol] 52 U/L 34-104 [facility] Aspartate aminotransferase [ Enzymatic activity/volume] in Serum or PlasmaOrdered By: Mellissa Padilla on 08-04-2022 AST [Catalytic activity/Vol] 17 U/L 13-39 [facility] Basophils Auto (Bld) [#/Vol] Ordered By: Mellissa Padilla on 08-04-2022 Basophils (Bld) [#/Vol] 0.0 10*3/uL 0.0-0.2 [facility] Basophils/100 WBC Auto (Bld) Ordered By: Mellissa Padilla on 08-04-2022 Basophils/100 WBC (Bld) 0.6 % . [facility] Bilirubin.total [Mass/volume ] in Serum or PlasmaOrdered By: Mellissa Padilla on 08-04-2022 Bilirubin [Mass/Vol] 0.4 mg/dL 0.3-1.0 [facility] Calcium [Mass/volume] in Ser um or PlasmaOrdered By: Mellissa Padilla on 08-04-2022 Calcium [Mass/Vol] 9.6 mg/dL 8.6-10.3 [facility] Carbon dioxide, total [Moles /volume] in Serum or PlasmaOrdered By: Mellissa Padilla on 08-04-2022 CO2 [Moles/Vol] 29.9 mmol/L 21.0-31.0 [facility] Chloride [Moles/volume] in S rodo or PlasmaOrdered By: Mellissa Padilla on 08-04-2022 Chloride [Moles/Vol] 104 mmol/L 98-107 [facility] Complete Blood Count Auto Di ffon 08-04-2022 Basophils (Bld) [#/Vol] 0.0 10*3/uL Normal 0.0-0.2 [facility] Comment on above: Performed By: #### C MP, FE and TIBC, HAPT, RETIC, LDH, WILLIE, [id number], CBC #### [facility] [address] Basophils/100 WBC (Bld) 0.6 % Normal . [facility] Comment on above: Performed By: #### C MP, FE and TIBC, HAPT, RETIC, LDH, WILLIE, [id number], CBC #### [address] Eosinophils (Bld) [#/Vol] 0.1 10*3/uL Normal 0.0-0.45 [facility] Comment on above: Performed By: #### C MP, FE and TIBC, HAPT, RETIC, LDH, WILLIE, [id number], CBC #### [address] Eosinophils/100 WBC (Bld) 1.0 % Normal . [facility] Comment on above: Performed By: #### C MP, FE and TIBC, HAPT, RETIC, LDH, WILLIE, [id number], CBC #### [address] Erythrocyte distribution width (RBC) [Ratio] 15.3 % High 12.0-14.8 [facility] Comment on above: Performed By: #### C MP, FE and TIBC, HAPT, RETIC, LDH, WILLIE, [id number], CBC #### [address] Hematocrit (Bld) [Volume fraction] 44.2 % Normal 38.8-50.0 [facility] Comment on above: Performed By: #### C MP, FE and TIBC, HAPT, RETIC, LDH, WILLIE, [id number], CBC #### [address] Hemoglobin (Bld) [Mass/Vol] 14.6 g/dL Normal 13.0-17.0 [facility] Comment on above: Performed By: #### C MP, FE and TIBC, HAPT, RETIC, LDH, WILLIE, [id number], CBC #### [address] Lymphocytes (Bld) [#/Vol] 1.7 10*3/uL Normal 1.00-4.8 [facility] Comment on above: Performed By: #### C MP, FE and TIBC, HAPT, RETIC, LDH, WILLIE, [id number], CBC #### [address] Lymphocytes/100 WBC (Bld) 29.4 % Normal . [facility] Comment on above: Performed By: #### C MP, FE and TIBC, HAPT, RETIC, LDH, WILLIE, [id number], CBC #### [address] MCH (RBC) [Entitic mass] 30.4 pg Normal 27.5-35.2 [facility] Comment on above: Performed By: #### C MP, FE and TIBC, HAPT, RETIC, LDH, WILLIE, [id number], CBC #### [address] MCV (RBC) [Entitic vol] 91.8 fL Normal 83.5-101 [facility] Comment on above: Performed By: #### C MP, FE and TIBC, HAPT, RETIC, LDH, WILLIE, [id number], CBC #### [address] Mean Corpuscular HGB Conc 33.1 g/dL Normal 32.5-35.6 [facility] Comment on above: Performed By: #### C MP, FE and TIBC, HAPT, RETIC, LDH, WILLIE, [id number], CBC #### [address] Monocytes (Bld) [#/Vol] 0.5 10*3/uL Normal 0.0-0.8 [facility] Comment on above: Performed By: #### C MP, FE and TIBC, HAPT, RETIC, LDH, WILLIE, [id number], CBC #### [address] Monocytes/100 WBC (Bld) 9.1 % Normal . [facility] Comment on above: Performed By: #### C MP, FE and TIBC, HAPT, RETIC, LDH, WILLIE, [id number], CBC #### [address] Neutrophils (Bld) [#/Vol] 3.4 10*3/uL Normal 1.8-7.7 [facility] Comment on above: Performed By: #### C MP, FE and TIBC, HAPT, RETIC, LDH, WILLIE, [id number], CBC #### [facility] [address] Neutrophils/100 WBC (Bld) 59.9 % Normal . [facility] Comment on above: Performed By: #### C MP, FE and TIBC, HAPT, RETIC, LDH, WILLIE, [id number], CBC #### [facility] [address] NRBC% 0.2 /100{WBC} Normal 0-0.5 [facility] Comment on above: Performed By: #### C MP, FE and TIBC, HAPT, RETIC, LDH, WILLIE, [id number], CBC #### [address] Platelet mean volume (Bld) [Entitic vol] 9.8 fL Normal 6.6-10.1 [facility] Comment on above: Performed By: #### C MP, FE and TIBC, HAPT, RETIC, LDH, WILLIE, [id number], CBC #### [address] Platelets (Bld) [#/Vol] 121 10*3/uL Low 150-450 [facility] Comment on above: Performed By: #### C MP, FE and TIBC, HAPT, RETIC, LDH, WILLIE, [id number], CBC #### [address] RBC (Bld) [#/Vol] 4.82 10*6/uL Normal 3.90-5.60 [facility] Comment on above: Performed By: #### C MP, FE and TIBC, HAPT, RETIC, LDH, WILLIE, [id number], CBC #### [address] WBC (Bld) [#/Vol] 5.7 10*3/uL Normal 4.1-10.5 [facility] Comment on above: Performed By: #### C MP, FE and TIBC, HAPT, RETIC, LDH, WILLIE, [id number], CBC #### [facility] [address] Comprehensive Metabolic Pane armando 08-04-2022 Albumin [Mass/Vol] 4.5 g/dL Normal 3.5-5.7 [facility] Comment on above: Order Comment: pt is fasting Performed By: #### C MP, FE and TIBC, HAPT, RETIC, LDH, WILLIE, [id number], CBC #### [address] Albumin/Globulin [Mass ratio] 2.0 {ratio} Normal [facility] Comment on above: Order Comment: pt is fasting Performed By: #### C MP, FE and TIBC, HAPT, RETIC, LDH, WILLIE, [id number], CBC #### [address] ALP [Catalytic activity/Vol] 52 U/L Normal 34-104 [facility] Comment on above: Order Comment: pt is fasting Performed By: #### C MP, FE and TIBC, HAPT, RETIC, LDH, WILLIE, [id number], CBC #### [address] ALT [Catalytic activity/Vol] 12 U/L Normal 7-52 [facility] Comment on above: Order Comment: pt is fasting Performed By: #### C MP, FE and TIBC, HAPT, RETIC, LDH, WILLIE, [id number], CBC #### [address] Anion gap [Moles/Vol] 13.5 mmol/L Normal 6.0-15.0 [facility] Comment on above: Order Comment: pt is fasting Performed By: #### C MP, FE and TIBC, HAPT, RETIC, LDH, WILLIE, [id number], CBC #### [address] [address] [place] AST [Catalytic activity/Vol] 17 U/L Normal 13-39 [facility] Comment on above: Order Comment: pt is fasting Performed By: #### C MP, FE and TIBC, HAPT, RETIC, LDH, WILLIE, [id number], CBC #### [facility] [address] Bilirubin [Mass/Vol] 0.4 mg/dL Normal 0.3-1.0 [facility] Comment on above: Order Comment: pt is fasting Performed By: #### C MP, FE and TIBC, HAPT, RETIC, LDH, WILLIE, [id number], CBC #### [address] Calcium [Mass/Vol] 9.6 mg/dL Normal 8.6-10.3 [facility] Comment on above: Order Comment: pt is fasting Performed By: #### C MP, FE and TIBC, HAPT, RETIC, LDH, WILLIE, [id number], CBC #### [address] Chloride [Moles/Vol] 104 mmol/L Normal 98-107 [facility] Comment on above: Order Comment: pt is fasting Performed By: #### C MP, FE and TIBC, HAPT, RETIC, LDH, WILLIE, [id number], CBC #### [address] CO2 [Moles/Vol] 29.9 mmol/L Normal 21.0-31.0 [facility] Comment on above: Order Comment: pt is fasting Performed By: #### C MP, FE and TIBC, HAPT, RETIC, LDH, WILLIE, [id number], CBC #### [facility] [address] [place] [address] Creatinine [Mass/Vol] 0.72 mg/dL Normal 0.70-1.30 [facility] Comment on above: Order Comment: pt is fasting Performed By: #### C MP, FE and TIBC, HAPT, RETIC, LDH, WILLIE, [id number], CBC #### [facility] [address] Creatinine Clr Calc Pharmacy 86.20 [facility] Comment on above: Order Comment: pt is fasting Performed By: #### C MP, FE and TIBC, HAPT, RETIC, LDH, WILLIE, [id number], CBC #### [facility] [address] GFR/1.73 sq M.predicted MDRD (S/P/Bld) [Vol rate/Area] mL/min/{1.73_m2} [facility] Comment on above: Order Comment: pt is fasting Performed By: #### C MP, FE and TIBC, HAPT, RETIC, LDH, WILLIE, [id number], CBC #### [facility] [address] Globulin (S) [Mass/Vol] 2.2 g/dL Normal [facility] Comment on above: Order Comment: pt is fasting Performed By: #### C MP, FE and TIBC, HAPT, RETIC, LDH, WILLIE, [id number], CBC #### [facility] [address] Glucose [Mass/Vol] 108 mg/dL Normal 74-109 [facility] Comment on above: Order Comment: pt is fasting Result Comment: [facility] Glucose Reference Range is dependent on time and content of last meal. Glucose of more than 200 mg/dL in a nonstressed, ambulatory subject supports the diagnosis of Diabetes Mellitus. ADA recommended reference range Performed By: #### C MP, FE and TIBC, HAPT, RETIC, LDH, WILLIE, [id number], CBC #### [facility] [address] Potassium [Moles/Vol] 4.4 mmol/L Normal 3.5-5.1 [facility] Comment on above: Order Comment: pt is fasting Performed By: #### C MP, FE and TIBC, HAPT, RETIC, LDH, WILLIE, [id number], CBC #### [facility] [address] Protein [Mass/Vol] 6.7 g/dL Normal 6.4-8.9 [facility] Comment on above: Order Comment: pt is fasting Performed By: #### C MP, FE and TIBC, HAPT, RETIC, LDH, WILLIE, [id number], CBC #### [facility] [address] Sodium [Moles/Vol] 143 mmol/L Normal 136-145 [facility] Comment on above: Order Comment: pt is fasting Performed By: #### C MP, FE and TIBC, HAPT, RETIC, LDH, WILLIE, [id number], CBC #### [facility] [address] Urea nitrogen [Mass/Vol] 11 mg/dL Normal 7-25 [facility] Comment on above: Order Comment: pt is fasting Performed By: #### C MP, FE and TIBC, HAPT, RETIC, LDH, WILLIE, [id number], CBC #### [facility] [address] Creatinine [Mass/volume] in Serum or PlasmaOrdered By: Mellissa Padilla on 08-04-2022 Creatinine [Mass/Vol] 0.72 mg/dL 0.70-1.30 [facility] Eosinophils Auto (Bld) [#/Vo l]Ordered By: Mellissa Padilla on 08-04-2022 Eosinophils (Bld) [#/Vol] 0.1 10*3/uL 0.0-0.45 [facility] Eosinophils/100 WBC Auto (Bl d)Ordered By: Mellissa Padilla on 08-04-2022 Eosinophils/100 WBC (Bld) 1.0 % . [facility] Erythrocyte distribution wid th Auto (RBC) [Ratio]Ordered By: Mellissa Padilla on 08-04-2022 Erythrocyte distribution width (RBC) [Ratio] 15.3 % 12.0-14.8 [facility] Ferritinon 08-04-2022 Ferritin [Mass/Vol] 29.7 ng/mL Normal 23.9-336.2 [facility] Comment on above: Order Comment: pt is fasting Performed By: #### C MP, FE and TIBC, HAPT, RETIC, LDH, WILLIE, [id number], CBC #### [facility] [address] Ferritin [Mass/volume] in Se rum or PlasmaOrdered By: Mellissa Padilla on 08-04-2022 Ferritin [Mass/Vol] 29.7 ng/mL 23.9-336.2 [facility] Folate [Mass/volume] in Seru m or PlasmaOrdered By: Mellissa Padilla on 08-04-2022 Folate [Mass/Vol] ng/mL >5.9 [facility] Comment on above: Folate reference ran ge: >5.9 ng/mlThe WHO technical consultation on folate and vitamin [id number] has determined that folate concentrations lessthan 4 ng/ml are considered deficient. Globulin Calc (S) [Mass/Vol] Ordered By: Mellissa Padilla on 08-04-2022 Globulin (S) [Mass/Vol] 2.2 g/dL [facility] Glucose [Mass/volume] in Ser um or PlasmaOrdered By: Mellissa Padilla on 08-04-2022 Glucose [Mass/Vol] 108 mg/dL 74-109 [facility] Comment on above: ADA recommended refe rence rangeRandom Glucose Reference Range is dependent on time and content of last meal. Glucose of more than 200 mg/dL in a nonstressed, ambulatory subject supports the diagnosis of Diabetes Mellitus. Haptoglobinon 08-04-2022 Haptoglobin 96 mg/dL Normal 37-246 [facility] Comment on above: Result Comment: PERF ORMED BY: [facility] [address] [facility] [place] [address] PATHOLOGIST [employer] ARDEN MELTON M.D. Performed By: #### C MP, FE and TIBC, HAPT, RETIC, LDH, WILLIE, [id number], CBC #### [facility] [address] [place] [id number] [facility] Haptoglobin [Mass/volume] in Serum or PlasmaOrdered By: Mellissa Padilla on 08-04-2022 Haptoglobin [Mass/Vol] 96 mg/dL 37-246 [facility] Hematocrit Auto (Bld) [Volum e fraction]Ordered By: Mellissa Padilla on 08-04-2022 Hematocrit (Bld) [Volume fraction] 44.2 % 38.8-50.0 [facility] Hemoglobin [Mass/volume] in BloodOrdered By: Mellissa Padilla on 08-04-2022 Hemoglobin (Bld) [Mass/Vol] 14.6 g/dL 13.0-17.0 [facility] Iron [Mass/volume] in Serum or PlasmaOrdered By: Mellissa Padilla on 08-04-2022 Iron [Mass/Vol] 75 ug/dL 50-212 [facility] Iron and TIBC Profileon % Iron Saturation 18.7 % Low 20-50 [facility] Comment on above: Order Comment: pt is fasting Performed By: #### C MP, FE and TIBC, HAPT, RETIC, LDH, WILLIE, [id number], CBC #### [facility] [address] Iron [Mass/Vol] 75 ug/dL Normal 50-212 [facility] Comment on above: Order Comment: pt is fasting Performed By: #### C MP, FE and TIBC, HAPT, RETIC, LDH, WILLIE, [id number], CBC #### [facility] [address] [place] [address] Total Iron Binding Capacity 402 ug/dL Normal 255-450 [facility] Comment on above: Order Comment: pt is fasting Performed By: #### C MP, FE and TIBC, HAPT, RETIC, LDH, WILLIE, [id number], CBC #### [facility] [address] Transferrin [Mass/Vol] 287 mg/dL Normal 203-362 [facility] Comment on above: Order Comment: pt is fasting Performed By: #### C MP, FE and TIBC, HAPT, RETIC, LDH, WILLIE, [id number], CBC #### [facility] [address] [place] [address] Iron binding capacity [Mass/ volume] in Serum or PlasmaOrdered By: Mellissa Padilla on 08-04-2022 Iron binding capacity [Mass/Vol] 402 ug/dL 255-450 [facility] Iron saturation [Mass Fracti on] in Serum or PlasmaOrdered By: Mellissa Padilla on 08-04-2022 Iron saturation [Mass fraction] 18.7 % 20-50 [facility] LDH Lactate Dehydrogenaseon 08-04-2022 LDH Lactate Dehydrogenase 172 U/L Normal 140-271 [facility] Comment on above: Order Comment: pt is fasting Performed By: #### C MP, FE and TIBC, HAPT, RETIC, LDH, WILLIE, [id number], CBC #### [facility] [address] Laboratory - Chemistry and C hemistry - challengeOrdered By: Mellissa Padilla on 08-04-2022 GFR/1.73 sq M.predicted MDRD (S/P/Bld) [Vol rate/Area] mL/min/{1.73_m2} [facility] Lactate dehydrogenase [Enzym atic activity/volume] in Serum or Plasma by Lactate to pyOrdered By: Mellissa Padilla on 08-04-2022 LDH Lactate to pyruvate reaction [Catalytic activity/Vol] 172 U/L 140-271 [facility] Leukocytes [#/volume] correc chivo for nucleated erythrocytes in Blood by Automated counOrdered By: Mellissa Padilla on 08-04-2022 WBC corrected for nucl RBC Auto (Bld) [#/Vol] 5.7 10*3/uL 4.1-10.5 [facility] Lymphocytes Auto (Bld) [#/Vo l]Ordered By: Mellissa Padilla on 08-04-2022 Lymphocytes (Bld) [#/Vol] 1.7 10*3/uL 1.00-4.8 [facility] Lymphocytes/100 WBC Auto (Bl d)Ordered By: Mellissa Padilla on 08-04-2022 Lymphocytes/100 WBC (Bld) 29.4 % . [facility] MCH Auto (RBC) [Entitic mass ]Ordered By: Mellissa Padilla on 08-04-2022 MCH (RBC) [Entitic mass] 30.4 pg 27.5-35.2 [facility] MCHC Auto (RBC) [Mass/Vol]Or dered By: Mellissa Padilla on 08-04-2022 MCHC (RBC) [Mass/Vol] 33.1 g/dL 32.5-35.6 [facility] MCV Auto (RBC) [Entitic vol] Ordered By: Mellissa Padilla on 08-04-2022 MCV (RBC) [Entitic vol] 91.8 fL 83.5-101 [facility] Monocytes Auto (Bld) [#/Vol] Ordered By: Mellissa Padilla on 08-04-2022 Monocytes (Bld) [#/Vol] 0.5 10*3/uL 0.0-0.8 [facility] Monocytes/100 WBC Auto (Bld) Ordered By: Mellissa Padilla on 08-04-2022 Monocytes/100 WBC (Bld) 9.1 % . [facility] Neutrophils Auto (Bld) [#/Vo l]Ordered By: Mellissa Padilla on 08-04-2022 Neutrophils (Bld) [#/Vol] 3.4 10*3/uL 1.8-7.7 [facility] Neutrophils/100 WBC Auto (Bl d)Ordered By: Mellissa Padilla on 08-04-2022 Neutrophils/100 WBC (Bld) 59.9 % . [facility] No Panel InformationOrdered By: Mellissa Padilla on 08-04-2022 Pharmacy Creatinine Clearance (Chem 86.20 [facility] Nucleated erythrocytes [Pres ence] in Blood by Automated countOrdered By: Mellissa Padilla on 08-04-2022 Nucleated RBC Auto Ql (Bld) 0.2 /100{WBC} 0-0.5 [facility] Platelet mean volume Auto (B ld) [Entitic vol]Ordered By: Mellissa Padilla on 08-04-2022 Platelet mean volume (Bld) [Entitic vol] 9.8 fL 6.6-10.1 [facility] Platelets Auto (Bld) [#/Vol] Ordered By: Mellissa Padilla on 08-04-2022 Platelets (Bld) [#/Vol] 121 10*3/uL 150-450 [facility] Potassium [Moles/volume] in Serum or PlasmaOrdered By: Mellissa Padilla on 08-04-2022 Potassium [Moles/Vol] 4.4 mmol/L 3.5-5.1 [facility] Protein [Mass/volume] in Ser um or PlasmaOrdered By: Mellissa Padilla on 08-04-2022 Protein [Mass/Vol] 6.7 g/dL 6.4-8.9 [facility] RBC Auto (Bld) [#/Vol]Ordere d By: Mellissa Padilla on 08-04-2022 RBC (Bld) [#/Vol] 4.82 10*6/uL 3.90-5.60 [facility] Reticulocyte Counton 023 Reticulocyte Number 0.045 10*6/uL Normal 0.024-0.084 [facility] Comment on above: Result Comment: PERF ORMED BY: [place] [address] PATHOLOGIST [employer] OPERATOR ARDEN MELTON M.D. Performed By: #### C MP, FE and TIBC, HAPT, RETIC, LDH, WILLIE, [id number], CBC #### [facility] [address] Reticulocyte Percent 0.9 % Normal 0.5-1.5 [facility] Comment on above: Performed By: #### C MP, FE and TIBC, HAPT, RETIC, LDH, WILLIE, [id number], CBC #### [facility] [address] [place] [address] [place] Reticulocytes/100 RBC Auto ( Bld)Ordered By: Mellissa Padilla on 08-04-2022 Reticulocytes/100 RBC (Bld) 0.9 % 0.5-1.5 [facility] Serum or plasma albumin/glob ulin mass ratioOrdered By: Mellissa Padilla on 08-04-2022 Albumin/Globulin [Mass ratio] 2.0 {ratio} [facility] Serum or plasma anion gap de terminationOrdered By: Mellissa Padilla on 08-04-2022 Anion gap [Moles/Vol] 13.5 mmol/L 6.0-15.0 [facility] Sodium [Moles/volume] in Ser um or PlasmaOrdered By: Mellissa Padilla on 08-04-2022 Sodium [Moles/Vol] 143 mmol/L 136-145 [facility] Transferrin [Mass/volume] in Serum or PlasmaOrdered By: Mellissa Padilla on 08-04-2022 Transferrin [Mass/Vol] 287 mg/dL 203-362 [facility] Urea nitrogen [Mass/volume] in Serum or PlasmaOrdered By: Mellissa Padilla on 08-04-2022 Urea nitrogen [Mass/Vol] 11 mg/dL 7-25 [facility] Vit. B12/Folate Profileon Cobalamin (Vitamin B12) [Mass/Vol] 372 pg/mL Normal 180-914 [facility] Comment on above: Order Comment: pt is fasting Performed By: #### C MP, FE and TIBC, HAPT, RETIC, LDH, WILLIE, [id number], CBC #### [facility] [address] [place] [address] Folate > 24.8 Normal >5.9 [facility] Comment on above: Order Comment: pt is fasting Result Comment: Claudine te reference range: >5.9 ng/ml The WHO technical consultation on folate and vitamin b12 deficiencies has determined that folate concentrations less than 4 ng/ml are considered deficient. PERFORMED BY: [place] [address] PATHOLOGIST [employer] OPERATOR ARDEN MELTON M.D. Performed By: #### C MP, FE and TIBC, HAPT, RETIC, LDH, WILLIE, [id number], CBC #### [facility] [address] [place] [address] Vitamin B12 ser/plasOrdered By: Mellissa Padilla on 08-04-2022 Cobalamin (Vitamin B12) [Mass/Vol] 372 pg/mL 180-914 [facility] WBC Auto (Bld) [#/Vol]Ordere d By: Mellissa Padilla on 08-04-2022 WBC (Bld) [#/Vol] 5.7 10*3/uL 4.1-10.5 [facility] CBC AUTO DIFFon 07-02-2022 BASO # 0.1 103/ul Normal 0.0-0.1 [facility] Comment on above: Performed By: #### B SAMARIA MORILLO #### [facility] [address] [place] [address] Dr. Tori Mills Basophils/100 WBC (Bld) 0.9 % Normal 0.2-2.0 [facility] Comment on above: Performed By: #### B SAMARIA MORILLO #### [facility] [address] [place] [address] Dr. Tori Mills EO # 0.1 103/ul Normal 0.0-0.7 [facility] Comment on above: Performed By: #### B SAMARIA MORILLO #### [facility] [address] [place] [address] Dr. Tori Mills Eosinophils/100 WBC (Bld) 1.4 % Normal 0.9-7.0 [facility] Comment on above: Performed By: #### B WILI MORILLODM #### [facility] [address] [place] [address] Dr. Tori Mills Erythrocyte distribution width (RBC) [Ratio] 15.7 % Critically high 11.0-15.0 [facility] Comment on above: Performed By: #### B WILI MORILLODM #### [facility] [address] [place] [address] Dr. Tori Mills Hematocrit (Bld) [Volume fraction] 33.5 % Critically low 42.0-54.0 [facility] Comment on above: Performed By: #### B WILI MORILLODM #### [facility] [address] [place] [address] Dr. Tori Mills Hemoglobin (Bld) [Mass/Vol] 11.3 g/dL Critically low 14.0-18.0 [facility] Comment on above: Performed By: #### B YISEL, WILIDM #### [facility] [address] [place] [address] Dr. Tori Mills IG # 0.03 10e3/ul Normal 0.00-0.03 [facility] Comment on above: Performed By: #### B YISEL, WILIDM #### [facility] [address] [place] [address] Dr. Tori Mills IG % 0.5 % Normal 0.0-0.5 [facility] Comment on above: Performed By: #### B YISEL, WILIDM #### [facility] [address] [place] [address] Dr. Tori Mills LYMPH # 1.6 103/ul Normal 1.2-3.8 [facility] Comment on above: Performed By: #### B YISEL, WILIDM #### [facility] [address] [place] [address] Dr. Tori Mills Lymphocytes/100 WBC (Bld) 27.6 % Normal 20.5-60.0 [facility] Comment on above: Performed By: #### B YISEL, WILIDM #### [facility] [address] [place] [address] Dr. Tori Mills MANUAL DIFF REQ NO Normal [facility] Comment on above: Performed By: #### B YISEL, WILIDM #### [facility] [address] [place] [address] Dr. Tori Mills MCH (RBC) [Entitic mass] 29.1 pg Normal 25.9-34.0 [facility] Comment on above: Performed By: #### B YISEL, WILIDM #### [facility] [address] [place] [address] Dr. Tori Mills MCHC (RBC) [Mass/Vol] 33.7 g/dL Normal 29.9-35.2 [facility] Comment on above: Performed By: #### B YISEL, WILIDM #### [facility] [address] [place] [address] Dr. Tori Mills MCV (RBC) [Entitic vol] 86.3 fL Normal 80.0-94.0 [facility] Comment on above: Performed By: #### B MP, CMADM #### [facility] [address] [place] [address] Dr. Tori Mills MONO # 0.6 103/ul Normal 0.3-0.8 [facility] Comment on above: Performed By: #### B MP, CMADM #### [facility] [address] [place] [address] Dr. Tori Mills Monocytes/100 WBC (Bld) 9.5 % Normal 1.7-12.0 [facility] Comment on above: Performed By: #### B MP, CMADM #### [facility] [address] [place] [address] Dr. Tori Mills NEUT # 3.5 103/ul Normal 1.4-6.5 [facility] Comment on above: Performed By: #### B MP, CMADM #### [facility] [address] [place] [address] Dr. Tori Mills Neutrophils/100 WBC (Bld) 60.1 % Normal 43.0-75.0 [facility] Comment on above: Performed By: #### B MP, CMADM #### [facility] [address] [place] [address] Dr. Tori Mills Platelet mean volume (Bld) [Entitic vol] 11.0 fL Normal 9.5-13.5 [facility] Comment on above: Performed By: #### B MP, CMADM #### [facility] [address] [place] [address] Dr. Tori Mills PLT 175 103/ul Normal 150-450 [facility] Comment on above: Performed By: #### B MP, CMADM #### [facility] [address] [place] [address] Dr. Tori Mills RBC 3.88 106/ul Critically low 4.70-6.10 [facility] Comment on above: Performed By: #### B MP, CMADM #### [facility] [address] [place] [address] Dr. Tori Mills WBC 5.8 103/ul Normal 4.0-11.0 [facility] Comment on above: Performed By: #### B SAMARIA MORILLO #### [facility] [address] [address] [address] Tori Mills GLYCOHEMOGLOBIN A1Con 2022 ADA RECOMMENDATION SEE BELOW Normal [facility] Comment on above: Result Comment: ADA RECOMMENDED LIMIT 4.0 - 6.0 ADA THERAPEUTIC TARGET < 7.0 ACTION SUGGESTED > 7.0 Performed By: #### P T #### [facility] [address] [place] [address] Dr. Tori Mills Glucose [Mass/Vol] 91 mg/dL Normal [facility] Comment on above: Performed By: #### P T #### [facility] [address] [place] [address] Dr. Tori Mills HbA1c (Bld) [Mass fraction] 4.8 % Normal 4.5-6.2 [facility] Comment on above: Performed By: #### P T #### [facility] [address] [place] [address] Dr. Tori Mills LIPID PROFILEon 07-02-2022 CHOL-HDL RATIO NORM SEE BELOW Normal [facility] Comment on above: Result Comment: 3.3 - 4.4 LOW RISK 4.4 - 7.1 AVERAGE RISK 7.1 - 11.0 MODERATE RISK >11.0 HIGH RISK Performed By: #### P T #### [facility] [address] [place] [address] Dr. Tori Mills Cholesterol [Mass/Vol] 148 mg/dL Normal <=200 [facility] Comment on above: Performed By: #### P T #### [facility] [address] [place] [address] Dr. Tori Mills Cholesterol in HDL [Mass/Vol] 48 mg/dL Normal 40-60 [facility] Comment on above: Performed By: #### P T #### [facility] [address] [address] [address] Tori Mills Cholesterol in LDL [Mass/Vol] 65.8 mg/dL Normal [facility] Comment on above: Performed By: #### P T #### [facility] [address] [address] [address] Tori Mills Cholesterol.total/Margie sterol in HDL [Mass ratio] 3.1 {ratio} Normal [facility] Comment on above: Performed By: #### P T #### [facility] [address] [address] [address] Tori Mills HDL NORMAL > or = 60 mg/dl - LO W CARDIOVASCULAR RISK <40 mg/dl - HIGH CARDIOVASCULAR RISK Normal [facility] Comment on above: Performed By: #### P T #### [facility] [address] [address] [address] Tori Mills LDL CALC NORMAL SEE BELOW Normal [facility] Comment on above: Result Comment: <100 mg/dl OPTIMAL 100 - 129 mg/dl NEAR OR ABOVE OPTIMAL 130 - 159 mg/dl BORDERLINE HIGH 160 - 189 mg/dl HIGH >190 mg/dl VERY HIGH Performed By: #### P T #### [facility] [address] [address] [address] Tori Mills Triglyceride [Mass/Vol] 171 mg/dL Critically high <=150 [facility] Comment on above: Performed By: #### P T #### [facility] [address] [address] [address] Tori Mills VLDL CALC 34.2 mg/dL Normal [facility] Comment on above: Performed By: #### P T #### [facility] [address] [address] [address] Tori Mills LIVER PROFILEon 07-02-2022 Albumin [Mass/Vol] 3.8 g/dL Normal 3.4-5.0 [facility] Comment on above: Performed By: #### P T #### [facility] [address] [place] [address] Dr. Toir Mills Albumin/Globulin [Mass ratio] 1.2 {ratio} Normal [facility] Comment on above: Performed By: #### P T #### [facility] [address] [address] [address] Tori Mills ALP [Catalytic activity/Vol] 64 U/L Normal 46-116 [facility] Comment on above: Performed By: #### P T #### [facility] [address] [place] [address] Dr. Tori Mills ALT [Catalytic activity/Vol] 17 U/L Normal 16-63 [facility] Comment on above: Performed By: #### P T #### [facility] [address] [place] [address] Dr. Tori Mills AST [Catalytic activity/Vol] 14 U/L Critically low 15-37 [facility] Comment on above: Performed By: #### P T #### [facility] [address] [place] [address] Dr. Tori Mills BILI, CONJUGATED 0.1 mg/dL Normal 0.0-0.2 [facility] Comment on above: Performed By: #### P T #### [facility] [address] [place] [address] Dr. Tori Mills Bilirubin [Mass/Vol] 0.3 mg/dL Normal 0.2-1.0 [facility] Comment on above: Performed By: #### P T #### [facility] [address] [place] [address] Dr. Tori Mills Globulin (S) [Mass/Vol] 3.2 g/dL Normal [facility] Comment on above: Performed By: #### P T #### [facility] [address] [place] [address] Dr. Tori Mills Protein [Mass/Vol] 7.0 g/dL Normal 6.4-8.2 [facility] Comment on above: Performed By: #### P T #### [facility] [address] [place] [address] Dr. Tori Mills MICROALBUMIN, RAND URon 02-0 mALB 7.0 mg/L Normal <=30.0 [facility] Comment on above: Performed By: #### M ALBR #### [facility] [address] [address] [address] Tori Mills PROF CHEM 8 (BAS METB)on Anion gap [Moles/Vol] 9.9 mmol/L Normal [facility] Comment on above: Performed By: #### B YISEL, CMADM #### [facility] [address] [place] [address] Dr. Tori Mills Calcium [Mass/Vol] 9.3 mg/dL Normal 8.5-10.1 [facility] Comment on above: Performed By: #### B YISEL, CMADM #### [facility] [address] [place] [address] Dr. Tori Mills Chloride [Moles/Vol] 104 mmol/L Normal 98-107 [facility] Comment on above: Performed By: #### B YISEL, CMADM #### [facility] [address] [place] [address] Dr. Tori Mills CO2 [Moles/Vol] 32.2 mmol/L Critically high 21.0-32.0 [facility] Comment on above: Performed By: #### B YISEL, CMADM #### [facility] [address] [place] [address] Dr. Tori Mills Creatinine [Mass/Vol] 0.69 mg/dL Critically low 0.70-1.30 [facility] Comment on above: Performed By: #### B YISEL, CMADM #### [facility] [address] [place] [address] Dr. Tori Mills EGFR-AF BURMESE >60 Normal >=60 [facility] Comment on above: Performed By: #### B YISEL, CMADM #### [facility] [address] [place] [address] Dr. Tori Mills EGFR-NON AF BURMESE >60 Normal >=60 [facility] Comment on above: Performed By: #### B YISEL, CMADM #### [facility] [address] [place] [address] Dr. Tori Mills Glucose [Mass/Vol] 136 mg/dL Critically high 74-106 [facility] Comment on above: Performed By: #### B MP, CMADM #### [facility] [address] [address] [address] Tori Mills Potassium [Moles/Vol] 4.1 mmol/L Normal 3.5-5.1 [facility] Comment on above: Performed By: #### B MP, CMADM #### [facility] [address] [place] [address] Dr. Tori Mills Sodium [Moles/Vol] 142 mmol/L Normal 136-145 [facility] Comment on above: Performed By: #### B MP, CMADM #### [facility] [address] [place] [address] Dr. Tori Mills Urea nitrogen [Mass/Vol] 7.0 mg/dL Normal 7.0-18.0 [facility] Comment on above: Performed By: #### B MP, CMADM #### [facility] [address] [place] [address] Dr. Tori Mills Urea nitrogen/Creatinine [Mass ratio] 10.1 mg/mg Normal [facility] Comment on above: Performed By: #### B MP, CMADM #### [facility] [address] [place] [address] Dr. Tori Mills CARDIAC ALBINO ADMITon 023 CK [Catalytic activity/Vol] 56 U/L Normal 39-308 [facility] Comment on above: Performed By: #### O BSCRN #### [facility] [address] [place] [address] Dr. Tori Mills CK.MB [Mass/Vol] 0.69 ng/mL Normal <=3.60 [facility] Comment on above: Performed By: #### O BSCRN #### [facility] [address] [place] [address] Dr. Tori Mills HSTROP 8.1 pg/mL Normal 4.0-76.1 [facility] Comment on above: Result Comment: CUT- OFF POINTS HAVE BEEN ESTABLISHED BASED ON THE FOURTH UNIVERSAL DEFINITIONS OF MYOCARDIAL INFARCTION. THE UPPER REFERENCE LIMIT (URL) OF TROPONIN, DEFINED THE 99TH PERCENTILE OF cTnI DISTRIBUTION IN A REFERENCE POPULATION, HAS BEEN CONFIRMED THE DECISION THRESHOLD FOR [place] DIAGNOSIS. Performed By: #### O BSCRN #### [facility] [address] [place] [address] Dr. Tori Mills TAMIKO 53 ng/mL Normal 16-96 [facility] Comment on above: Performed By: #### O BSCRN #### [facility] [address] [place] [address] Dr. Tori Mills CBC AUTO DIFFon 06-16-2022 BASO # 0.0 103/ul Normal 0.0-0.1 [facility] Comment on above: Performed By: #### O BSCRN #### [facility] [address] [place] [address] Dr. Tori Mills Basophils/100 WBC (Bld) 0.5 % Normal 0.2-2.0 [facility] Comment on above: Performed By: #### O BSCRN #### [facility] [address] [place] [address] Dr. Tori Mills EO # 0.0 103/ul Normal 0.0-0.7 [facility] Comment on above: Performed By: #### O BSCRN #### [facility] [address] [place] [address] Dr. Tori Mlils Eosinophils/100 WBC (Bld) 0.7 % Critically low 0.9-7.0 [facility] Comment on above: Performed By: #### O BSCRN #### [facility] [address] [place] [address] Dr. Tori Mills Erythrocyte distribution width (RBC) [Ratio] 14.8 % Normal 11.0-15.0 [facility] Comment on above: Performed By: #### O BSCRN #### [facility] [address] [place] [address] Dr. Tori Mills Hematocrit (Bld) [Volume fraction] 24.6 % Critically low 42.0-54.0 [facility] Comment on above: Performed By: #### O BSCRN #### [facility] [address] [place] [address] Dr. Tori Mills Hemoglobin (Bld) [Mass/Vol] 8.1 g/dL Critically low 14.0-18.0 [facility] Comment on above: Performed By: #### O BSCRN #### [facility] [address] [place] [address] Dr. Tori Mills IG # 0.02 10e3/ul Normal 0.00-0.03 [facility] Comment on above: Performed By: #### O BSCRN #### [facility] [address] [place] [address] Dr. Tori Mills IG % 0.4 % Normal 0.0-0.5 [facility] Comment on above: Performed By: #### O BSCRN #### [facility] [address] [place] [address] Dr. Tori Mills LYMPH # 1.5 103/ul Normal 1.2-3.8 [facility] Comment on above: Performed By: #### O BSCRN #### [facility] [address] [place] [address] Dr. Tori Mills Lymphocytes/100 WBC (Bld) 26.1 % Normal 20.5-60.0 [facility] Comment on above: Performed By: #### O BSCRN #### [facility] [address] [place] [address] Dr. Tori Mills MANUAL DIFF REQ NO Normal [facility] Comment on above: Performed By: #### O BSCRN #### [facility] [address] [place] [address] Dr. Tori Mills MCH (RBC) [Entitic mass] 30.8 pg Normal 25.9-34.0 [facility] Comment on above: Performed By: #### O BSCRN #### [facility] [address] [place] [address] Dr. Tori Mills MCHC (RBC) [Mass/Vol] 32.9 g/dL Normal 29.9-35.2 [facility] Comment on above: Performed By: #### O BSCRN #### [facility] [address] [place] [address] Dr. Tori Mills MCV (RBC) [Entitic vol] 93.5 fL Normal 80.0-94.0 [facility] Comment on above: Performed By: #### O BSCRN #### [facility] [address] [address] [address] Tori Mills MONO # 0.6 103/ul Normal 0.3-0.8 [facility] Comment on above: Performed By: #### O BSCRN #### [facility] [address] [address] [address] Tori Mills Monocytes/100 WBC (Bld) 10.6 % Normal 1.7-12.0 [facility] Comment on above: Performed By: #### O BSCRN #### [facility] [address] [place] [address] Dr. Tori Mills NEUT # 3.4 103/ul Normal 1.4-6.5 [facility] Comment on above: Performed By: #### O BSCRN #### [facility] [address] [place] [address] Dr. Tori Mills Neutrophils/100 WBC (Bld) 61.7 % Normal 43.0-75.0 [facility] Comment on above: Performed By: #### O BSCRN #### [facility] [address] [place] [address] Dr. Tori Mills Platelet mean volume (Bld) [Entitic vol] 11.2 fL Normal 9.5-13.5 [facility] Comment on above: Performed By: #### O BSCRN #### [facility] [address] [place] [address] Dr. Tori Mills PLT 114 103/ul Critically low 150-450 [facility] Comment on above: Performed By: #### O BSCRN #### [facility] [address] [place] [address] Dr. Tori Mills RBC 2.63 106/ul Critically low 4.70-6.10 [facility] Comment on above: Performed By: #### O BSCRN #### [facility] [address] [place] [address] Dr. Tori Mills WBC 5.6 103/ul Normal 4.0-11.0 [facility] Comment on above: Performed By: #### O BSCRN #### [facility] [address] [place] [address] Dr. Tori Mills BASO # 0.0 103/ul Normal 0.0-0.1 [facility] Comment on above: Performed By: #### B YISEL, CMADM #### [facility] [address] [place] [address] Dr. Tori Mills Basophils/100 WBC (Bld) 0.5 % Normal 0.2-2.0 [facility] Comment on above: Performed By: #### B YISEL, SAMARIA #### [facility] [address] [place] [address] Dr. Tori Mills EO # 0.1 103/ul Normal 0.0-0.7 [facility] Comment on above: Performed By: #### B YISEL, SAMARIA #### [facility] [address] [place] [address] Dr. Tori Mills Eosinophils/100 WBC (Bld) 1.5 % Normal 0.9-7.0 [facility] Comment on above: Performed By: #### B YISEL, WILIDM #### [facility] [address] [place] [address] Dr. Tori Mills Erythrocyte distribution width (RBC) [Ratio] 14.5 % Normal 11.0-15.0 [facility] Comment on above: Performed By: #### B YISEL, CMADM #### [facility] [address] [place] [address] Dr. Tori Mills Hematocrit (Bld) [Volume fraction] 29.4 % Critically low 42.0-54.0 [facility] Comment on above: Performed By: #### B YISEL, CMADM #### [facility] [address] [place] [address] Dr. Tori Mills Hemoglobin (Bld) [Mass/Vol] 9.7 g/dL Critically low 14.0-18.0 [facility] Comment on above: Performed By: #### B MP, CMADM #### [facility] [address] [address] [address] Tori Mills IG # 0.03 10e3/ul Normal 0.00-0.03 [facility] Comment on above: Performed By: #### B MP, CMADM #### [facility] [address] [address] [address] Tori Mills IG % 0.4 % Normal 0.0-0.5 [facility] Comment on above: Performed By: #### B MP, CMADM #### [facility] [address] [address] [address] Tori Mills LYMPH # 2.0 103/ul Normal 1.2-3.8 [facility] Comment on above: Performed By: #### B MP, CMADM #### [facility] [address] [address] [address] Tori Mills Lymphocytes/100 WBC (Bld) 25.5 % Normal 20.5-60.0 [facility] Comment on above: Performed By: #### B MP, CMADM #### [facility] [address] [address] [address] Tori Mills MANUAL DIFF REQ NO Normal [facility] Comment on above: Performed By: #### B MP, CMADM #### [facility] [address] [address] [address] Tori Mills MCH (RBC) [Entitic mass] 30.5 pg Normal 25.9-34.0 [facility] Comment on above: Performed By: #### B MP, CMADM #### [facility] [address] [address] [address] Tori Mills MCHC (RBC) [Mass/Vol] 33.0 g/dL Normal 29.9-35.2 [facility] Comment on above: Performed By: #### B MP, CMADM #### [facility] [address] [address] [address] Tori Mills MCV (RBC) [Entitic vol] 92.5 fL Normal 80.0-94.0 [facility] Comment on above: Performed By: #### B MP, CMADM #### [facility] [address] [address] [address] Tori Mills MONO # 0.8 103/ul Normal 0.3-0.8 [facility] Comment on above: Performed By: #### B MP, CMADM #### [facility] [address] [place] [address] Dr. Tori Mills Monocytes/100 WBC (Bld) 9.9 % Normal 1.7-12.0 [facility] Comment on above: Performed By: #### B MP, CMADM #### [facility] [address] [place] [address] Dr. Tori Mills NEUT # 5.0 103/ul Normal 1.4-6.5 [facility] Comment on above: Performed By: #### B YISEL, CMADM #### [facility] [address] [place] [address] Dr. Tori Mills Neutrophils/100 WBC (Bld) 62.2 % Normal 43.0-75.0 [facility] Comment on above: Performed By: #### B YISEL, CMADM #### [facility] [address] [place] [address] Dr. Tori Mills Platelet mean volume (Bld) [Entitic vol] 11.4 fL Normal 9.5-13.5 [facility] Comment on above: Performed By: #### B YISEL, CMADM #### [facility] [address] [place] [address] Dr. Tori Mills PLT 167 103/ul Normal 150-450 [facility] Comment on above: Performed By: #### B MP, CMADM #### [facility] [address] [place] [address] Dr. Tori Mills RBC 3.18 106/ul Critically low 4.70-6.10 [facility] Comment on above: Performed By: #### B YISEL, CMADM #### [facility] [address] [place] [address] Dr. Tori Mills WBC 8.0 103/ul Normal 4.0-11.0 [facility] Comment on above: Performed By: #### B , [facility] #### [facility] [address] [address] ABD/PELV W CONon 06-16-19 CT ABD/PELV W CON EXAMINATION: CT ABD/PELV W CON HISTORY: Gastrointestinal hemorrhage COMPARISON: None. TECHNIQUE: Axial images were obtained through the abdomen and pelvis following intravenous administration of iodinated contrast. Source images were used to create sagittal and coronal reconstructions. ENTERIC CONTRAST: Yes Dose reduction techniques were achieved by using automated exposure control and/or adjustment of mA and/or kV according to patient size and/or use of iterative reconstruction technique. FINDINGS: Abdomen The visualized portions of the lungs are clear. The size of the heart is within normal limits. The stomach is unremarkable in appearance. No hepatic mass is identified. There is at least one gallstone in the gallbladder. The gallbladder does not appear distended. No gallbladder wall thickening is identified. There is no visible pericholecystic fluid. No intra- or extrahepatic biliary ductal dilation is identified. The spleen appears normal. The pancreas appears normal. The pancreatic duct is not dilated. The adrenal glands appear normal. The kidneys appear normal. No free intra-abdominal air is detected. No adenopathy is observed. There are scattered aortic calcifications. A fusiform infrarenal abdominal aortic aneurysm measures up to 2.7 cm in diameter. The small bowel does not appear distended. No air-fluid levels are identified. Pelvis The colon does not appear distended. There is at least one sigmoid diverticulum, without stranding of adjacent fat planes to imply diverticulitis or colitis. The appendix appears normal. The urinary bladder is unremarkable in appearance. No free pelvic fluid is observed. A rounded area of diminished attenuation adjacent to the proximal aspect of the right inguinal canal measures up to 2.2 cm in diameter, possibly related to prior inguinal hernia surgery. There is a small fat-containing left inguinal hernia. Musculoskeletal The patient has had an L5 level laminectomy. IMPRESSION: 1. Cholelithiasis without CT evidence of acute cholecystitis or biliary obstruction. 2. Small infrarenal abdominal aortic aneurysm. 3. Rounded area of diminished attenuation adjacent to the proximal aspect of the right inguinal canal, possibly related to hernia surgery. If the patient has not had hernia surgery, a repeat CT in approximately one years time should be adequate. 4. Small fat-containing left inguinal hernia. 5. There is at least one sigmoid diverticulum without additional CT findings to imply diverticulitis or colitis. No other potential source of gastrointestinal hemorrhage is observed. Electronically authenticated by: FESTUS DELVALLE Date: 2022-06-16 14:18 Normal [facility] SARS-CoV-2 (COVID-19) RNA DREA+probe Ql (Unsp spec) Not detected Normal NOT DETECTED [facility] Comment on above: Result Comment: When diagnostic testing is negative, the possibility of a false negative should be considered in the context of a patient's recent exposures and the presence of clinical signs and symptoms consistent with SARS-CoV-2. This test is not yet approved or cleared by the [place] FDA. When there are no FDA-approved or cleared tests available, and other criteria are met, FDA can make tests available under an emergency access mechanism called an Emergency Use Authorization (EUA). The EUA for this test is supported by the [employer] of Health and Human Service's declaration that circumstances exist to justify the emergency use of in vitro diagnostics for the detection and/or diagnosis of the virus that causes COVID-19. This EUA will remain in effect for the duration of the COVID-19 declaration justifying emergency of IVDs, unless it is terminated or revoked by the FDA (after which the test may no longer be used). Performed By: #### M ALBR #### [facility] [address] [place] [address] Dr. Tori Mills HEMOGLOBINon 06-16-2022 Hemoglobin (Bld) [Mass/Vol] 8.3 g/dL Critically low 14.0-18.0 [facility] Comment on above: Performed By: #### P T #### [facility] [address] [place] [address] Dr. Tori Mills HEMOGLOBIN AND HEMATOCRITon 06-16-2022 Hematocrit (Bld) [Volume fraction] 24.1 % Critically low 42.0-54.0 [facility] Comment on above: Performed By: #### M ALBR #### [facility] [address] [place] [address] Dr. Tori Mills Hemoglobin (Bld) [Mass/Vol] 8.0 g/dL Critically low 14.0-18.0 [facility] Comment on above: Performed By: #### M ALBR #### [facility] [address] [place] [address] Dr. Tori Mills LIPID PROFILEon 06-16-2022 CHOL-HDL RATIO NORM SEE BELOW Normal [facility] Comment on above: Result Comment: 3.3 - 4.4 LOW RISK 4.4 - 7.1 AVERAGE RISK 7.1 - 11.0 MODERATE RISK >11.0 HIGH RISK Performed By: #### B YISEL, CMADM #### [facility] [address] [address] [address] Tori Mills Cholesterol [Mass/Vol] 162 mg/dL Normal <=200 [facility] Comment on above: Performed By: #### B YISEL, CMADM #### [facility] [address] [place] [address] Dr. Tori Mills Cholesterol in HDL [Mass/Vol] 49 mg/dL Normal 40-60 [facility] Comment on above: Performed By: #### Solitario MORILLO, CMADM #### [facility] [address] [place] [address] Dr. Tori Mills Cholesterol in LDL [Mass/Vol] 78.4 mg/dL Normal [facility] Comment on above: Performed By: #### Solitario MORILLO, CMADM #### [facility] [address] [address] [address] Tori Mills Cholesterol.total/Margie sterol in HDL [Mass ratio] 3.3 {ratio} Normal [facility] Comment on above: Performed By: #### B YISEL, CMADM #### [facility] [address] [place] [address] Dr. Tori Mills HDL NORMAL > or = 60 mg/dl - LO W CARDIOVASCULAR RISK <40 mg/dl - HIGH CARDIOVASCULAR RISK Normal [facility] Comment on above: Performed By: #### B YISEL, CMADM #### [facility] [address] [place] [address] Dr. Tori Mills LDL CALC NORMAL SEE BELOW Normal [facility] Comment on above: Result Comment: <100 mg/dl OPTIMAL 100 - 129 mg/dl NEAR OR ABOVE OPTIMAL 130 - 159 mg/dl BORDERLINE HIGH 160 - 189 mg/dl HIGH >190 mg/dl VERY HIGH Performed By: #### B YISEL, WILIDM #### [facility] [address] [address] [address] Tori Mills Triglyceride [Mass/Vol] 173 mg/dL Critically high <=150 [facility] Comment on above: Performed By: #### B YISEL, WILIDM #### [facility] [address] [address] [address] Tori Mills VLDL CALC 34.6 mg/dL Normal [facility] Comment on above: Performed By: #### B YISEL, SAMARIA #### [facility] [address] [address] [address] Tori Mills MAGNESIUMon 06-16-2022 Magnesium [Mass/Vol] 1.4 mg/dL Critically low 1.8-2.4 [facility] Comment on above: Performed By: #### B YISEL, SAMARIA #### [facility] [address] [address] [address] Tori Mills POINT OF CARE GLUCOSEon 05-31 Glucose [Mass/Vol] 106 mg/dL Normal 74-106 [facility] Comment on above: Performed By: #### B YISEL, WILIDM #### [facility] [address] [address] [address] Tori Mills Glucose [Mass/Vol] 99 mg/dL Normal 74-106 [facility] Comment on above: Performed By: #### B YISEL, WILIDM #### [facility] [address] [address] [address] Tori Mills PROF CHEM 8 (BAS METB)on Anion gap [Moles/Vol] 12.3 mmol/L Normal [facility] Comment on above: Performed By: #### O BSCRN #### [facility] [address] [address] [address] Tori Mills Calcium [Mass/Vol] 8.8 mg/dL Normal 8.5-10.1 [facility] Comment on above: Performed By: #### O BSCRN #### [facility] [address] [address] [address] Tori Mills Chloride [Moles/Vol] 101 mmol/L Normal 98-107 [facility] Comment on above: Performed By: #### O BSCRN #### [facility] [address] [address] [address] Tori Mills CO2 [Moles/Vol] 31.1 mmol/L Normal 21.0-32.0 [facility] Comment on above: Performed By: #### O BSCRN #### [facility] [address] [place] [address] Dr. Tori Mills Creatinine [Mass/Vol] 0.71 mg/dL Normal 0.70-1.30 [facility] Comment on above: Performed By: #### O BSCRN #### [facility] [address] [address] [address] Tori Mills EGFR-AF BURMESE >60 Normal >=60 [facility] Comment on above: Performed By: #### O BSCRN #### [facility] [address] [place] [address] Dr. Tori Mills EGFR-NON AF BURMESE >60 Normal >=60 [facility] Comment on above: Performed By: #### O BSCRN #### [facility] [address] [address] [address] Tori Mills Glucose [Mass/Vol] 138 mg/dL Critically high 74-106 [facility] Comment on above: Performed By: #### O BSCRN #### [facility] [address] [address] [address] Tori Mills Potassium [Moles/Vol] 3.4 mmol/L Critically low 3.5-5.1 [facility] Comment on above: Performed By: #### O BSCRN #### [facility] [address] [address] [address] Tori Mills Sodium [Moles/Vol] 141 mmol/L Normal 136-145 [facility] Comment on above: Performed By: #### O BSCRN #### [facility] [address] [address] [address] Tori Mills Urea nitrogen [Mass/Vol] 12.0 mg/dL Normal 7.0-18.0 [facility] Comment on above: Performed By: #### O BSCRN #### [facility] [address] [address] [address] Tori Mills Urea nitrogen/Creatinine [Mass ratio] 16.9 mg/mg Normal [facility] Comment on above: Performed By: #### O BSCRN #### [facility] [address] [place] [address] Dr. Tori Mills PROTIMEon 06-16-2022 INR Coag (PPP) [Relative time] 1.08 {INR} Normal [facility] Comment on above: Performed By: #### B SAMARIA MORILLO #### [facility] [address] [place] [address] Dr. Tori Mills INR GUIDELINES SEE BELOW Normal [facility] Comment on above: Result Comment: FRANCI RED INR: 2.0 - 3.0 CONDITIONS NOT LISTED BELOW 2.5 - 3.5 FOR PROSTHETIC HEART VALVE REPLACEMENT 2.5 - 3.5 RECURRENT THROMBOSIS Performed By: #### B YISEL, CMADM #### [facility] [address] [place] [address] Dr. Tori Mills PT Coag (PPP) [Time] 11.4 s Normal 9.0-11.6 [facility] Comment on above: Performed By: #### B YISEL, CMADM #### [facility] [address] [place] [address] Dr. Tori Mills TSHon 06-16-2022 TSH 2.263 uIU/mL Normal 0.358-3.740 [facility] Comment on above: Performed By: #### B YISEL, WILIDM #### [facility] [address] [place] [address] Dr. Tori Mills PRBC LEUKOREDUCEDon 06-15-19 ABO and Rh group Nom (Bld) Cross Match Result Compatible Unit Blood Type O Pos Unit Number [id number] Status Information Transfused Product ID Red Blood Cells Product Code [id number] Cross Match Result Compatible Unit Blood Type O Pos Unit Number [id number] Status Information Transfused Product ID Red Blood Cells Product Code [id number] Normal [facility] Comment on above: Performed By: #### M ALBR #### [facility] [address] [place] [address] Dr. Tori Mills CBC AUTO DIFFon 06-14-2022 BASO # 0.0 103/ul Normal 0.0-0.1 [facility] Comment on above: Performed By: #### M ALBR #### [facility] [address] [place] [address] Dr. Tori Mills Basophils/100 WBC (Bld) 0.6 % Normal 0.2-2.0 [facility] Comment on above: Performed By: #### M ALBR #### [facility] [address] [place] [address] Dr. Tori Mills EO # 0.2 103/ul Normal 0.0-0.7 [facility] Comment on above: Performed By: #### M ALBR #### [facility] [address] [place] [address] Dr. Tori Mills Eosinophils/100 WBC (Bld) 2.5 % Normal 0.9-7.0 [facility] Comment on above: Performed By: #### M ALBR #### [facility] [address] [place] [address] Dr. Tori Mills Erythrocyte distribution width (RBC) [Ratio] 14.6 % Normal 11.0-15.0 [facility] Comment on above: Performed By: #### M ALBR #### [facility] [address] [place] [address] Dr. Tori Mills Hematocrit (Bld) [Volume fraction] 26.7 % Critically low 42.0-54.0 [facility] Comment on above: Performed By: #### M ALBR #### [facility] [address] [place] [address] Dr. Tori Mills Hemoglobin (Bld) [Mass/Vol] 8.5 g/dL Critically low 14.0-18.0 [facility] Comment on above: Performed By: #### M ALBR #### [facility] [address] [place] [address] Dr. Tori Mills IG # 0.02 10e3/ul Normal 0.00-0.03 [facility] Comment on above: Performed By: #### M ALBR #### [facility] [address] [place] [address] Dr. Tori Mills IG % 0.3 % Normal 0.0-0.5 [facility] Comment on above: Performed By: #### M ALBR #### [facility] [address] [place] [address] Dr. Tori Mills LYMPH # 1.7 103/ul Normal 1.2-3.8 [facility] Comment on above: Performed By: #### M ALBR #### [facility] [address] [place] [address] Dr. Tori Mills Lymphocytes/100 WBC (Bld) 27.2 % Normal 20.5-60.0 [facility] Comment on above: Performed By: #### M ALBR #### [facility] [address] [place] [address] Dr. Tori Mills MANUAL DIFF REQ NO Normal [facility] Comment on above: Performed By: #### M ALBR #### [facility] [address] [place] [address] Dr. Tori Mills MCH (RBC) [Entitic mass] 29.2 pg Normal 25.9-34.0 [facility] Comment on above: Performed By: #### M ALBR #### [facility] [address] [place] [address] Dr. Tori Mills MCHC (RBC) [Mass/Vol] 31.8 g/dL Normal 29.9-35.2 [facility] Comment on above: Performed By: #### M ALBR #### [facility] [address] [place] [address] Dr. Tori Mills MCV (RBC) [Entitic vol] 91.8 fL Normal 80.0-94.0 [facility] Comment on above: Performed By: #### M ALBR #### [facility] [address] [place] [address] Dr. Tori Mills MONO # 0.7 103/ul Normal 0.3-0.8 [facility] Comment on above: Performed By: #### M ALBR #### [facility] [address] [place] [address] Dr. Tori Mills Monocytes/100 WBC (Bld) 10.8 % Normal 1.7-12.0 [facility] Comment on above: Performed By: #### M ALBR #### [facility] [address] [place] [address] Dr. Tori Mills NEUT # 3.7 103/ul Normal 1.4-6.5 [facility] Comment on above: Performed By: #### M ALBR #### [facility] [address] [place] [address] Dr. Tori Mills Neutrophils/100 WBC (Bld) 58.6 % Normal 43.0-75.0 [facility] Comment on above: Performed By: #### M ALBR #### [facility] [address] [place] [address] Dr. Tori Mills Platelet mean volume (Bld) [Entitic vol] 11.1 fL Normal 9.5-13.5 [facility] Comment on above: Performed By: #### M ALBR #### [facility] [address] [place] [address] Dr. Tori Mills PLT 148 103/ul Critically low 150-450 [facility] Comment on above: Performed By: #### M ALBR #### [facility] [address] [place] [address] Dr. Tori Mills RBC 2.91 106/ul Critically low 4.70-6.10 [facility] Comment on above: Performed By: #### M ALBR #### [facility] [address] [place] [address] Dr. Tori Mills WBC 6.4 103/ul Normal 4.0-11.0 [facility] Comment on above: Performed By: #### M ALBR #### [facility] [address] [place] [address] Dr. Tori Mills PROF 14(COMP METB)on 023 Albumin [Mass/Vol] 2.7 g/dL Critically low 3.4-5.0 Th e [facility] Comment on above: Performed By: #### O BSCRN #### [facility] [address] [place] [address] Dr. Tori Mills Albumin/Globulin [Mass ratio] 1.1 {ratio} Normal [facility] Comment on above: Performed By: #### O BSCRN #### [facility] [address] [place] [address] Dr. Tori Mills ALP [Catalytic activity/Vol] 62 U/L Normal 46-116 [facility] Comment on above: Performed By: #### O BSCRN #### [facility] [address] [place] [address] Dr. Tori Mills ALT [Catalytic activity/Vol] 12 U/L Critically low 16-63 [facility] Comment on above: Performed By: #### O BSCRN #### [facility] [address] [place] [address] Dr. Tori Mills Anion gap [Moles/Vol] 8.5 mmol/L Normal [facility] Comment on above: Performed By: #### O BSCRN #### [facility] [address] [place] [address] Dr. Tori Mills AST [Catalytic activity/Vol] 13 U/L Critically low 15-37 [facility] Comment on above: Performed By: #### O BSCRN #### [facility] [address] [place] [address] Dr. Tori Mills Bilirubin [Mass/Vol] 0.3 mg/dL Normal 0.2-1.0 [facility] Comment on above: Performed By: #### O BSCRN #### [facility] [address] [place] [address] Dr. Tori Mills Calcium [Mass/Vol] 8.4 mg/dL Critically low 8.5-10.1 Th [facility] Comment on above: Performed By: #### O BSCRN #### [facility] [address] [address] [address] Tori Mills Chloride [Moles/Vol] 107 mmol/L Normal 98-107 [facility] Comment on above: Performed By: #### O BSCRN #### [facility] [address] [address] [address] Tori Mills CO2 [Moles/Vol] 30.0 mmol/L Normal 21.0-32.0 [facility] Comment on above: Performed By: #### O BSCRN #### [facility] [address] [place] [address] Dr. Tori Mills Creatinine [Mass/Vol] 0.67 mg/dL Critically low 0.70-1.30 [facility] Comment on above: Performed By: #### O BSCRN #### [facility] [address] [place] [address] Dr. Tori Mills EGFR-AF BURMESE >60 Normal >=60 [facility] Comment on above: Performed By: #### O BSCRN #### [facility] [address] [place] [address] Dr. Tori Mills EGFR-NON AF BURMESE >60 Normal >=60 [facility] Comment on above: Performed By: #### O BSCRN #### [facility] [address] [place] [address] Dr. Tori Mills Globulin (S) [Mass/Vol] 2.5 g/dL Normal [facility] Comment on above: Performed By: #### O BSCRN #### [facility] [address] [place] [address] Dr. Tori Mills Glucose [Mass/Vol] 98 mg/dL Normal 74-106 [facility] Comment on above: Performed By: #### O BSCRN #### [facility] [address] [place] [address] Dr. Tori Mills Potassium [Moles/Vol] 3.5 mmol/L Normal 3.5-5.1 [facility] Comment on above: Performed By: #### O BSCRN #### [facility] [address] [address] [address] Tori Mills Protein [Mass/Vol] 5.2 g/dL Critically low 6.4-8.2 Th e [facility] Comment on above: Performed By: #### O BSCRN #### [facility] [address] [address] [address] Tori Mills Sodium [Moles/Vol] 142 mmol/L Normal 136-145 [facility] Comment on above: Performed By: #### O BSCRN #### [facility] [address] [place] [address] Dr. Tori Mills Urea nitrogen [Mass/Vol] 11.0 mg/dL Normal 7.0-18.0 [facility] Comment on above: Performed By: #### O BSCRN #### [facility] [address] [place] [address] Dr. Tori Mills Urea nitrogen/Creatinine [Mass ratio] 16.4 mg/mg Normal [facility] Comment on above: Performed By: #### O BSCRN #### [facility] [address] [place] [address] Dr. Tori Mills PROTIMEon 06-14-2022 INR Coag (PPP) [Relative time] 1.15 {INR} Normal [facility] Comment on above: Performed By: #### O BSCRN #### [facility] [address] [place] [address] Dr. Tori Mills INR GUIDELINES SEE BELOW Normal [facility] Comment on above: Result Comment: FRANCI RED INR: 2.0 - 3.0 CONDITIONS NOT LISTED BELOW 2.5 - 3.5 FOR PROSTHETIC HEART VALVE REPLACEMENT 2.5 - 3.5 RECURRENT THROMBOSIS Performed By: #### O BSCRN #### [facility] [address] [place] [address] Dr. Tori Mills PT Coag (PPP) [Time] 12.1 s Critically high 9.0-11.6 [facility] Comment on above: Performed By: #### O BSCRN #### [facility] [address] [place] [address] Dr. Tori Mills CBC AUTO DIFFon 06-13-2022 BASO # 0.0 103/ul Normal 0.0-0.1 [facility] Comment on above: Performed By: #### P T #### [facility] [address] [place] [address] Dr. Tori Mills Basophils/100 WBC (Bld) 0.4 % Normal 0.2-2.0 [facility] Comment on above: Performed By: #### P T #### [facility] [address] [place] [address] Dr. Tori Mills EO # 0.1 103/ul Normal 0.0-0.7 [facility] Comment on above: Performed By: #### P T #### [facility] [address] [place] [address] Dr. Tori Mills Eosinophils/100 WBC (Bld) 1.2 % Normal 0.9-7.0 [facility] Comment on above: Performed By: #### P T #### [facility] [address] [place] [address] Dr. Tori Mills Erythrocyte distribution width (RBC) [Ratio] 15.1 % Critically high 11.0-15.0 [facility] Comment on above: Performed By: #### P T #### [facility] [address] [place] [address] Dr. Tori Mills Hematocrit (Bld) [Volume fraction] 26.0 % Critically low 42.0-54.0 [facility] Comment on above: Performed By: #### P T #### [facility] [address] [place] [address] Dr. Tori Mills Hemoglobin (Bld) [Mass/Vol] 8.9 g/dL Critically low 14.0-18.0 [facility] Comment on above: Performed By: #### P T #### [facility] [address] [place] [address] Dr. Tori Mills IG # 0.03 10e3/ul Normal 0.00-0.03 [facility] Comment on above: Performed By: #### P T #### [facility] [address] [place] [address] Dr. Tori Mills IG % 0.4 % Normal 0.0-0.5 [facility] Comment on above: Performed By: #### P T #### [facility] [address] [place] [address] Dr. Tori Mills LYMPH # 2.1 103/ul Normal 1.2-3.8 [facility] Comment on above: Performed By: #### P T #### [facility] [address] [place] [address] Dr. Tori Mills Lymphocytes/100 WBC (Bld) 28.9 % Normal 20.5-60.0 [facility] Comment on above: Performed By: #### P T #### [facility] [address] [place] [address] Dr. Tori Mills MANUAL DIFF REQ NO Normal [facility] Comment on above: Performed By: #### P T #### [facility] [address] [place] [address] Dr. Tori Mills MCH (RBC) [Entitic mass] 30.4 pg Normal 25.9-34.0 [facility] Comment on above: Performed By: #### P T #### [facility] [address] [place] [address] Dr. Tori Mills MCHC (RBC) [Mass/Vol] 34.2 g/dL Normal 29.9-35.2 [facility] Comment on above: Performed By: #### P T #### [facility] [address] [place] [address] Dr. Tori Mills MCV (RBC) [Entitic vol] 88.7 fL Normal 80.0-94.0 [facility] Comment on above: Performed By: #### P T #### [facility] [address] [place] [address] Dr. Tori Mills MONO # 0.8 103/ul Normal 0.3-0.8 [facility] Comment on above: Performed By: #### P T #### [facility] [address] [address] [address] Tori Mills Monocytes/100 WBC (Bld) 10.4 % Normal 1.7-12.0 [facility] Comment on above: Performed By: #### P T #### [facility] [address] [address] [address] Tori Mills NEUT # 4.3 103/ul Normal 1.4-6.5 [facility] Comment on above: Performed By: #### P T #### [facility] [address] [address] [address] Tori Mills Neutrophils/100 WBC (Bld) 58.7 % Normal 43.0-75.0 [facility] Comment on above: Performed By: #### P T #### [facility] [address] [address] [address] Tori Mills Platelet mean volume (Bld) [Entitic vol] 10.9 fL Normal 9.5-13.5 [facility] Comment on above: Performed By: #### P T #### [facility] [address] [address] [address] Tori Mills PLT 135 103/ul Critically low 150-450 [facility] Comment on above: Performed By: #### P T #### [facility] [address] [address] [address] Tori Mills RBC 2.93 106/ul Critically low 4.70-6.10 [facility] Comment on above: Performed By: #### P T #### [facility] [address] [address] [address] Tori Mills WBC 7.3 103/ul Normal 4.0-11.0 [facility] Comment on above: Performed By: #### P T #### [facility] [address] [address] [address] Tori Mills PROF 14(COMP METB)on 023 Albumin [Mass/Vol] 2.8 g/dL Critically low 3.4-5.0 [facility] Comment on above: Performed By: #### B MP, CMADM #### [facility] [address] [address] [address] Tori Mills Albumin/Globulin [Mass ratio] 1.1 {ratio} Normal [facility] Comment on above: Performed By: #### B MP, CMADM #### [facility] [address] [address] [address] Tori Mills ALP [Catalytic activity/Vol] 47 U/L Normal 46-116 [facility] Comment on above: Performed By: #### B YISEL, CMADM #### [facility] [address] [address] [address] Tori Mills ALT [Catalytic activity/Vol] 14 U/L Critically low 16-63 [facility] Comment on above: Performed By: #### B YISEL, CMADM #### [facility] [address] [address] [address] Tori Mills Anion gap [Moles/Vol] 9.0 mmol/L Normal [facility] Comment on above: Performed By: #### B YISEL, CMADM #### [facility] [address] [address] [address] Tori Mills AST [Catalytic activity/Vol] 15 U/L Normal 15-37 [facility] Comment on above: Performed By: #### B YISEL, CMADM #### [facility] [address] [address] [address] Tori Mills Bilirubin [Mass/Vol] 0.6 mg/dL Normal 0.2-1.0 [facility] Comment on above: Performed By: #### B YISEL, CMADM #### [facility] [address] [address] [address] Tori Mills Calcium [Mass/Vol] 8.4 mg/dL Critically low 8.5-10.1 Th [facility] Comment on above: Performed By: #### B YISEL, CMADM #### [facility] [address] [address] [address] Tori Mills Chloride [Moles/Vol] 107 mmol/L Normal 98-107 [facility] Comment on above: Performed By: #### B YISEL, CMADM #### [facility] [address] [address] [address] Tori Mills CO2 [Moles/Vol] 30.3 mmol/L Normal 21.0-32.0 [facility] Comment on above: Performed By: #### B MP, CMADM #### [facility] [address] [address] [address] Tori Mills Creatinine [Mass/Vol] 0.52 mg/dL Critically low 0.70-1.30 [facility] Comment on above: Performed By: #### B YISEL, CMADM #### [facility] [address] [address] [address] Tori Mills EGFR-AF BURMESE >60 Normal >=60 [facility] Comment on above: Performed By: #### B YISEL, CMADM #### [facility] [address] [address] [address] Tori Mills EGFR-NON AF BURMESE >60 Normal >=60 [facility] Comment on above: Performed By: #### B YISEL, CMADM #### [facility] [address] [address] [address] Tori Mills Globulin (S) [Mass/Vol] 2.5 g/dL Normal [facility] Comment on above: Performed By: #### B YISEL, CMADM #### [facility] [address] [address] [address] Tori Mills Glucose [Mass/Vol] 88 mg/dL Normal 74-106 [facility] Comment on above: Performed By: #### B YISEL, CMADM #### [facility] [address] [address] [address] Tori Mills Potassium [Moles/Vol] 3.3 mmol/L Critically low 3.5-5.1 [facility] Comment on above: Performed By: #### B YISEL, CMADM #### [facility] [address] [address] [address] Tori Mills Protein [Mass/Vol] 5.3 g/dL Critically low 6.4-8.2 Th e [facility] Comment on above: Performed By: #### B YISEL, SAMARIA #### [facility] [address] [place] [address] Dr. Tori Mills Sodium [Moles/Vol] 143 mmol/L Normal 136-145 [facility] Comment on above: Performed By: #### B SAMARIA MORILLO #### [facility] [address] [place] [address] Dr. Tori Mills Urea nitrogen [Mass/Vol] 6.0 mg/dL Critically low 7.0-18.0 [facility] Comment on above: Performed By: #### B SAMARIA MORILLO #### [facility] [address] [place] [address] Dr. Tori Mills Urea nitrogen/Creatinine [Mass ratio] 11.5 mg/mg Normal [facility] Comment on above: Performed By: #### B SAMARIA MORILLO #### [facility] [address] [place] [address] Dr. Tori Mills PROTIMEon 06-13-2022 INR Coag (PPP) [Relative time] 1.39 {INR} Normal [facility] Comment on above: Performed By: #### P T #### [facility] [address] [place] [address] Dr. Tori Mills INR GUIDELINES SEE BELOW Normal [facility] Comment on above: Result Comment: FRANCI RED INR: 2.0 - 3.0 CONDITIONS NOT LISTED BELOW 2.5 - 3.5 FOR PROSTHETIC HEART VALVE REPLACEMENT 2.5 - 3.5 RECURRENT THROMBOSIS Performed By: #### P T #### [facility] [address] [place] [address] Dr. Tori Mills PT Coag (PPP) [Time] 14.5 s Critically high 9.0-11.6 [facility] Comment on above: Performed By: #### P T #### [facility] [address] [place] [address] Dr. Tori Mills ABO RH RETYPEon 06-12-2022 ABO and Rh group Nom (Bld) DONE Normal [facility] Comment on above: Performed By: #### O BSCRN #### [facility] [address] [place] [address] Dr. Tori Mills CARDIAC ALBINO 3-6on 3 CK [Catalytic activity/Vol] 33 U/L Critically low 39-308 [facility] Comment on above: Performed By: #### O BSCRN #### [facility] [address] [place] [address] Dr. Tori Mills CK.MB [Mass/Vol] 0.41 ng/mL Normal <=3.60 [facility] Comment on above: Performed By: #### O BSCRN #### [facility] [address] [place] [address] Dr. Tori Mills HSTROP 5.2 pg/mL Normal 4.0-76.1 [facility] Comment on above: Result Comment: CUT- OFF POINTS HAVE BEEN ESTABLISHED BASED ON THE FOURTH UNIVERSAL DEFINITIONS OF MYOCARDIAL INFARCTION. THE UPPER REFERENCE LIMIT (URL) OF TROPONIN, DEFINED THE 99TH PERCENTILE OF cTnI DISTRIBUTION IN A REFERENCE POPULATION, HAS BEEN CONFIRMED THE DECISION THRESHOLD FOR [place] DIAGNOSIS. Performed By: #### O BSCRN #### [facility] [address] [place] [address] Dr. Tori Mills CBC AUTO DIFFon 06-12-2022 BASO # 0.0 103/ul Normal 0.0-0.1 [facility] Comment on above: Performed By: #### M ALBR #### [facility] [address] [place] [address] Dr. Tori Mills Basophils/100 WBC (Bld) 0.6 % Normal 0.2-2.0 [facility] Comment on above: Performed By: #### M ALBR #### [facility] [address] [place] [address] Dr. Tori Mills EO # 0.1 103/ul Normal 0.0-0.7 [facility] Comment on above: Performed By: #### M ALBR #### [facility] [address] [place] [address] Dr. Tori Mills Eosinophils/100 WBC (Bld) 1.0 % Normal 0.9-7.0 [facility] Comment on above: Performed By: #### M ALBR #### [facility] [address] [place] [address] Dr. Tori Mills Erythrocyte distribution width (RBC) [Ratio] 14.9 % Normal 11.0-15.0 [facility] Comment on above: Performed By: #### M ALBR #### [facility] [address] [place] [address] Dr. Tori Mills Hematocrit (Bld) [Volume fraction] 30.0 % Critically low 42.0-54.0 [facility] Comment on above: Performed By: #### M ALBR #### [facility] [address] [place] [address] Dr. Tori Mills Hemoglobin (Bld) [Mass/Vol] 10.1 g/dL Critically low 14.0-18.0 [facility] Comment on above: Performed By: #### M ALBR #### [facility] [address] [place] [address] Dr. Tori Mills IG # 0.03 10e3/ul Normal 0.00-0.03 [facility] Comment on above: Performed By: #### M ALBR #### [facility] [address] [place] [address] Dr. Tori Mills IG % 0.4 % Normal 0.0-0.5 [facility] Comment on above: Performed By: #### M ALBR #### [facility] [address] [place] [address] Dr. Tori Mills LYMPH # 2.2 103/ul Normal 1.2-3.8 [facility] Comment on above: Performed By: #### M ALBR #### [facility] [address] [place] [address] Dr. Tori Mills Lymphocytes/100 WBC (Bld) 32.4 % Normal 20.5-60.0 [facility] Comment on above: Performed By: #### M ALBR #### [facility] [address] [place] [address] Dr. Tori Mills MANUAL DIFF REQ NO Normal [facility] Comment on above: Performed By: #### M ALBR #### [facility] [address] [place] [address] Dr. Tori Mills MCH (RBC) [Entitic mass] 30.3 pg Normal 25.9-34.0 [facility] Comment on above: Performed By: #### M ALBR #### [facility] [address] [place] [address] Dr. Tori Mills MCHC (RBC) [Mass/Vol] 33.7 g/dL Normal 29.9-35.2 [facility] Comment on above: Performed By: #### M ALBR #### [facility] [address] [place] [address] Dr. Tori Mills MCV (RBC) [Entitic vol] 90.1 fL Normal 80.0-94.0 [facility] Comment on above: Performed By: #### M ALBR #### [facility] [address] [place] [address] Dr. Tori Mills MONO # 0.7 103/ul Normal 0.3-0.8 [facility] Comment on above: Performed By: #### M ALBR #### [facility] [address] [place] [address] Dr. Tori Mills Monocytes/100 WBC (Bld) 10.4 % Normal 1.7-12.0 [facility] Comment on above: Performed By: #### M ALBR #### [facility] [address] [place] [address] Dr. Tori Mills NEUT # 3.7 103/ul Normal 1.4-6.5 [facility] Comment on above: Performed By: #### M ALBR #### [facility] [address] [place] [address] Dr. Tori Mills Neutrophils/100 WBC (Bld) 55.2 % Normal 43.0-75.0 [facility] Comment on above: Performed By: #### M ALBR #### [facility] [address] [place] [address] Dr. Tori Mills Platelet mean volume (Bld) [Entitic vol] 10.8 fL Normal 9.5-13.5 [facility] Comment on above: Performed By: #### M ALBR #### [facility] [address] [place] [address] Dr. Tori Mills PLT 144 103/ul Critically low 150-450 [facility] Comment on above: Performed By: #### M ALBR #### [facility] [address] [place] [address] Dr. Tori Mills RBC 3.33 106/ul Critically low 4.70-6.10 [facility] Comment on above: Performed By: #### M ALBR #### [facility] [address] [place] [address] Dr. Tori Mills WBC 6.8 103/ul Normal 4.0-11.0 [facility] Comment on above: Performed By: #### M ALBR #### [facility] [address] [place] [address] Dr. Tori Mills BASO # 0.0 103/ul Normal 0.0-0.1 [facility] Comment on above: Performed By: #### C BC #### [facility] [address] [place] [address] Dr. Tori Mills Basophils/100 WBC (Bld) 0.4 % Normal 0.2-2.0 [facility] Comment on above: Performed By: #### C BC #### [facility] [address] [place] [address] Dr. Tori Mills EO # 0.1 103/ul Normal 0.0-0.7 [facility] Comment on above: Performed By: #### C BC #### [facility] [address] [place] [address] Dr. Tori Mills Eosinophils/100 WBC (Bld) 1.1 % Normal 0.9-7.0 [facility] Comment on above: Performed By: #### C BC #### [facility] [address] [place] [address] Dr. Tori Mills Erythrocyte distribution width (RBC) [Ratio] 14.6 % Normal 11.0-15.0 [facility] Comment on above: Performed By: #### C BC #### [facility] [address] [place] [address] Dr. Tori Mills Hematocrit (Bld) [Volume fraction] 26.2 % Critically low 42.0-54.0 [facility] Comment on above: Performed By: #### C BC #### [facility] [address] [place] [address] Dr. Tori Mills Hemoglobin (Bld) [Mass/Vol] 8.0 g/dL Critically low 14.0-18.0 [facility] Comment on above: Performed By: #### C BC #### [facility] [address] [place] [address] Dr. Tori Mills IG # 0.02 10e3/ul Normal 0.00-0.03 [facility] Comment on above: Performed By: #### C BC #### [facility] [address] [place] [address] Dr. Tori Mills IG % 0.3 % Normal 0.0-0.5 [facility] Comment on above: Performed By: #### C BC #### [facility] [address] [place] [address] Dr. Tori Mills LYMPH # 2.0 103/ul Normal 1.2-3.8 [facility] Comment on above: Performed By: #### C BC #### [facility] [address] [place] [address] Dr. Tori Mills Lymphocytes/100 WBC (Bld) 28.2 % Normal 20.5-60.0 [facility] Comment on above: Performed By: #### C BC #### [facility] [address] [place] [address] Dr. Tori Mills MANUAL DIFF REQ NO Normal [facility] Comment on above: Performed By: #### C BC #### [facility] [address] [place] [address] Dr. Tori Mills MCH (RBC) [Entitic mass] 30.5 pg Normal 25.9-34.0 [facility] Comment on above: Performed By: #### C BC #### [facility] [address] [address] [address] Tori Mills MCHC (RBC) [Mass/Vol] 30.5 g/dL Normal 29.9-35.2 [facility] Comment on above: Performed By: #### C BC #### [facility] [address] [place] [address] Dr. Tori Mills MCV (RBC) [Entitic vol] 100.0 fL Critically high 80.0-94 .0 [facility] Comment on above: Performed By: #### C BC #### [facility] [address] [place] [address] Dr. Tori Mills MONO # 0.8 103/ul Normal 0.3-0.8 [facility] Comment on above: Performed By: #### C BC #### [facility] [address] [place] [address] Dr. Tori Mills Monocytes/100 WBC (Bld) 10.8 % Normal 1.7-12.0 [facility] Comment on above: Performed By: #### C BC #### [facility] [address] [place] [address] Dr. Tori Mills NEUT # 4.2 103/ul Normal 1.4-6.5 [facility] Comment on above: Performed By: #### C BC #### [facility] [address] [place] [address] Dr. Tori Mills Neutrophils/100 WBC (Bld) 59.2 % Normal 43.0-75.0 [facility] Comment on above: Performed By: #### C BC #### [facility] [address] [place] [address] Dr. Tori Mills Platelet mean volume (Bld) [Entitic vol] 11.3 fL Normal 9.5-13.5 [facility] Comment on above: Performed By: #### C BC #### [facility] [address] [place] [address] Dr. Tori Mills PLT 140 103/ul Critically low 150-450 [facility] Comment on above: Performed By: #### C BC #### [facility] [address] [address] [address] Tori Mills RBC 2.62 106/ul Critically low 4.70-6.10 [facility] Comment on above: Performed By: #### C BC #### [facility] [address] [place], [place] [address] Dr. Tori Mills WBC 7.0 103/ul Normal 4.0-11.0 [facility] Comment on above: Performed By: #### C BC #### [facility] [id number] Tori Mills [facility] SARS-CoV-2 (COVID-19) RNA DREA+probe Ql (Unsp spec) Not detected Normal NOT DETECTED [facility] Comment on above: Result Comment: When diagnostic testing is negative, the possibility of a false negative should be considered in the context of a patient's recent exposures and the presence of clinical signs and symptoms consistent with SARS-CoV-2. This test is not yet approved or cleared by the [place] FDA. When there are no FDA-approved or cleared tests available, and other criteria are met, FDA can make tests available under an emergency access mechanism called an Emergency Use Authorization (EUA). The EUA for this test is supported by the [employer] of Health and Human Service's declaration that circumstances exist to justify the emergency use of in vitro diagnostics for the detection and/or diagnosis of the virus that causes COVID-19. This EUA will remain in effect for the duration of the COVID-19 declaration justifying emergency of IVDs, unless it is terminated or revoked by the FDA (after which the test may no longer be used). Performed By: #### B MP, CMADM #### [facility] [address] [place] [address] Dr. 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 Admission #: [id number] Family : DR PABLO ABREU . Order #: [id number] CLICK HERE TO VIEW EXAM ECHOCARDIOGRAM REPORT PROCEDURE: CARDIO PULMONARY ECHOCARDIO M/2D COMP INDICATIONS: Syncope, h/o [place], CVA, diabetes COMPARISON: None. DESCRIPTION: COMPLETE ECHOCARDIOGRAM Real-time transthoracic echocardiography with 2D, M-mode, spectral and color flow Doppler performed. QUALITY: Technically difficult due to patients condition. 67 200# BP 126/72 LEFT VENTRICLE: Normal chamber size. Normal left ventricular wall thickness. LV EF: Global left ventricular systolic function is hyperdynamic; visually estimated ejection fraction is 70 to 75%. Cannot comment on regional wall motion abnormalities. DIASTOLIC: Normal diastolic function. ATRIAL SEPTUM: Inadequately seen. LEFT ATRIUM: Normal chamber size. RIGHT ATRIUM: Normal chamber size. RIGHT VENTRICLE: Normal chamber size. Normal systolic function. TRICUSPID VALVE: Normal mobility and thickness. No stenosis with trivial regurgitation. No evidence of pulmonary hypertension. RVSP 31 mmHg MITRAL VALVE: Normal mobility and thickness. No evidence of mitral valve stenosis. There is no mitral annular calcification. No mitral regurgitation. AORTIC VALVE: Normal trileaflet appearance. No visible sclerosis. Normal leaflet mobility. No evidence of aortic valve stenosis. No aortic regurgitation. AORTIC ROOT: Normal diameter and appearance. PULMONIC VALVE: Not well visualized. No stenosis. No regurgitation. PERICARDIUM: No evidence of pericardial effusion. IVC: Collapses with inspirations. IVC is normal in size. CONCLUSION: Global left ventricular systolic function is hyperdynamic; visually estimated ejection fraction is 70-75%. The right ventricle is normal in size and systolic function. No significant valvular abnormalities. Adult Echocardiography Procedure Report Left Ventricle LVEDD (3.7 - 5.6 cm): 5.06 cm LVESD (2.2 - 4.0 cm): 2.80 cm LVIVS thickness (0.6 - 1.2 cm): 0.88 cm LVPW thickness (0.5 - 1.0 cm): 0.83 cm e': 0.09 m/s E - e': 7.77 LVOT Max Gradient: 2.83 mm[Hg] Peak Velocity (LVOT): 0.84 m/s LVOT Diameter 2.34 cm Left Ventricular Ejection Fraction: 75.74 %, 75.74 % Left Atrium Left Atrium Systolic Dimension: 3.04 cm Mitral Valve MV E to A Ratio: 0.84 Mitral Valve A-Wave Peak Velocity: 0.86 m/s Mitral Valve E-Wave Peak Velocity: 0.72 m/s Right Ventricle Aorta AO Root Diam: 3.25 cm Aortic Valve AoV Area (Peak Rai): 3.89 cm2, 3.89 cm2 Peak Velocity(Antegrade Flow): 0.93 m/s Peak Gradient(Antegrade Flow): 3.43 mm[Hg] Tricuspid Valve Peak Velocity (Regurgitant Flow): 2.65 m/s Pulmonic Valve Peak Velocity: 1.06 m/s, 1.06 m/s Peak Gradient: 4.47 mm[Hg], 4.47 mm[Hg] Right Atrium Dictated by: Rachna Noble M.D. on 06/17/2022 at 08:56 Approved by: Rachna Noble M.D. on 06/17/2022 at 08:59 Normal [facility] OCC BLD IMMUNO SCREENon 05-31 OCCULT BLOOD Positive Abnormal NEGATIVE [facility] Comment on above: Performed By: #### O BSCRN #### [facility] [address] [place] [address] Dr. Tori Mills PROF 14(COMP METB)on 023 Albumin [Mass/Vol] 2.9 g/dL Critically low 3.4-5.0 Th [facility] Comment on above: Performed By: #### B SAMARIA OMRILLO #### [facility] [address] [place] [address] Dr. Tori Mills Albumin/Globulin [Mass ratio] 1.2 {ratio} Normal [facility] Comment on above: Performed By: #### B SAMARIA MORILLO #### [facility] [address] [place] [address] Dr. Tori Mills ALP [Catalytic activity/Vol] 50 U/L Normal 46-116 [facility] Comment on above: Performed By: #### B SAMARIA MORILLO #### [facility] [address] [place] [address] Dr. Tori Mills ALT [Catalytic activity/Vol] 18 U/L Normal 16-63 [facility] Comment on above: Performed By: #### B MP, CMADM #### [facility] [address] [address] [address] Tori Mills Anion gap [Moles/Vol] 8.4 mmol/L Normal [facility] Comment on above: Performed By: #### B MP, CMADM #### [facility] [address] [address] [address] Tori Mills AST [Catalytic activity/Vol] 16 U/L Normal 15-37 [facility] Comment on above: Performed By: #### B YISEL, CMADM #### [facility] [address] [address] [address] Tori Mills Bilirubin [Mass/Vol] 0.5 mg/dL Normal 0.2-1.0 [facility] Comment on above: Performed By: #### B YISEL, CMADM #### [facility] [address] [place] [address] Dr. Tori Mills Calcium [Mass/Vol] 8.2 mg/dL Critically low 8.5-10.1 Th [facility] Comment on above: Performed By: #### B YISEL, CMADM #### [facility] [address] [address] [address] Tori Mills Chloride [Moles/Vol] 109 mmol/L Critically high 98-107 [facility] Comment on above: Performed By: #### B YISEL, CMADM #### [facility] [address] [address] [address] Tori Mills CO2 [Moles/Vol] 30.3 mmol/L Normal 21.0-32.0 [facility] Comment on above: Performed By: #### B YISEL, CMADM #### [facility] [address] [address] [address] Tori Mills Creatinine [Mass/Vol] 0.62 mg/dL Critically low 0.70-1.30 [facility] Comment on above: Performed By: #### B YISEL, CMADM #### [facility] [address] [address] [address] Tori Mills EGFR-AF BURMESE >60 Normal >=60 [facility] Comment on above: Performed By: #### B YISEL, CMADM #### [facility] [address] [address] [address] Tori Mills EGFR-NON AF BURMESE >60 Normal >=60 [facility] Comment on above: Performed By: #### B MP, CMADM #### [facility] [address] [address] [address] Tori Mills Globulin (S) [Mass/Vol] 2.5 g/dL Normal [facility] Comment on above: Performed By: #### B MP, CMADM #### [facility] [address] [address] [address] Tori Mills Glucose [Mass/Vol] 106 mg/dL Normal 74-106 [facility] Comment on above: Performed By: #### B YISEL, CMADM #### [facility] [address] [place] [address] Dr. Tori Mills Potassium [Moles/Vol] 3.7 mmol/L Normal 3.5-5.1 [facility] Comment on above: Performed By: #### B YISEL, CMADM #### [facility] [address] [address] [address] Tori Mills Protein [Mass/Vol] 5.4 g/dL Critically low 6.4-8.2 Th [facility] Comment on above: Performed By: #### B YISEL, CMADM #### [facility] [address] [address] [address] Tori Mills Sodium [Moles/Vol] 144 mmol/L Normal 136-145 [facility] Comment on above: Performed By: #### B YISEL, CMADM #### [facility] [address] [address] [address] Tori Mills Urea nitrogen [Mass/Vol] 13.0 mg/dL Normal 7.0-18.0 [facility] Comment on above: Performed By: #### B YISEL, CMADM #### [facility] [address] [address] [address] Tori Mills Urea nitrogen/Creatinine [Mass ratio] 21.0 mg/mg Normal [facility] Comment on above: Performed By: #### B MP, CMADM #### [facility] [address] [address] [address] Tori Mills PROTIMEon 06-12-2022 INR Coag (PPP) [Relative time] 2.35 {INR} Normal [facility] Comment on above: Performed By: #### P T #### [facility] [address] [place] [address] Dr. Tori Mills INR GUIDELINES SEE BELOW Normal [facility] Comment on above: Result Comment: FRANCI RED INR: 2.0 - 3.0 CONDITIONS NOT LISTED BELOW 2.5 - 3.5 FOR PROSTHETIC HEART VALVE REPLACEMENT 2.5 - 3.5 RECURRENT THROMBOSIS Performed By: #### P T #### [facility] [address] [place] [address] Dr. Tori Mills PT Coag (PPP) [Time] 23.7 s Critically high 9.0-11.6 [facility] Comment on above: Performed By: #### P T #### [facility] [address] [place] [address] Dr. Tori Mills TYPE AND SCREENon 06-12-2022 TYPE AND SCREEN Negative Normal [facility] Comment on above: Performed By: #### M ALBR #### [facility] [address] [place] [address] Dr. Tori Mills US CAROTID ART BILon 023 US CAROTID ART DAYSI EXAMINATION: US CAROTID ART DAYSI HISTORY: Syncope COMPARISON: No relevant comparison available. TECHNIQUE: Duplex Doppler ultrasound analysis of carotid and vertebral arteries. . Bilateral carotid arterial duplex examination was performed using B-mode, color flow and spectral analysis. Carotid stenosis is reported according to validated velocity parameters, similar to NASCET criteria. FINDINGS: RIGHT CAROTID ARTERY: No visible stenosis or significant plaque. RIGHT VERTEBRAL: Antegrade flow. Subclavian: PSV: 106.8 cm/s EDV: 10.2 cm/s CCA: Prox: PSV: 114.1 cm/s EDV: 31.3 cm/s Mid: PSV: 88.5 cm/s EDV: 27.4 cm/s Distal: PSV: 90.5 cm/s EDV: 27.4 cm/s BULB: PSV: 82.6 cm/s EDV: 25.4 cm/s ICA: Prox: PSV: 112.2 cm/s EDV: 51.0 cm/s Mid: PSV: 122.0 cm/s EDV: 49.1 cm/s Distal: PSV: 85.4 cm/s EDV: 25.7 cm/s ECA: PSV: 135.2 cm/s EDV: 18.9 cm/s VERTEBRAL: PSV: 80.0 cm/s EDV: 28.8 cm/s ICA/CCA ratio: PSV: 1.1 EDV: 1.6 LEFT CAROTID ARTERY: No visible stenosis or significant plaque. LEFT VERTEBRAL: Antegrade flow. Subclavian: PSV: 186.5 cm/s EDV: 13.7 cm/s CCA: Prox: PSV: 139.1 cm/s EDV: 38.7 cm/s Mid: PSV: 88.5 cm/s EDV: 25.4 cm/s Distal: PSV: 98.4 cm/s EDV: 27.4 cm/s BULB: PSV: 76.7 cm/s EDV: 13.6 cm/s ICA: Prox: PSV: 114.1 cm/s EDV: 43.2 cm/s Mid: PSV: 112.1 cm/s EDV: 25.4 cm/s Distal: PSV: 123.9 cm/s EDV: 49.0 cm/s ECA: PSV: 114.0 cm/s EDV: 23.4 cm/s VERTEBRAL: PSV: 83.8 cm/s EDV: 28.9 cm/s ICA/CCA ratio: PSV: 0.9 EDV: 1.3 IMPRESSION: 1. 0-49% flow stenosis within the right and left carotid arteries. 2. No significant atherosclerotic disease or vessel narrowing. Electronically authenticated by: KATIA ORDONEZ Date: 2022-06-12 09:32 Normal [facility] CARDIAC ALBINO ADMITon 023 CK [Catalytic activity/Vol] 34 U/L Critically low 39-308 [facility] Comment on above: Performed By: #### B SAMARIA MORILLO #### [facility] [address] [place] [address] Dr. Tori Mills CK.MB [Mass/Vol] 0.33 ng/mL Normal <=3.60 [facility] Comment on above: Performed By: #### SAMARIA Jerez MP #### [facility] [address] [place] [address] Dr. Tori Mills HSTROP 5.4 pg/mL Normal 4.0-76.1 [facility] Comment on above: Result Comment: CUT- OFF POINTS HAVE BEEN ESTABLISHED BASED ON THE FOURTH UNIVERSAL DEFINITIONS OF MYOCARDIAL INFARCTION. THE UPPER REFERENCE LIMIT (URL) OF TROPONIN, DEFINED THE 99TH PERCENTILE OF cTnI DISTRIBUTION IN A REFERENCE POPULATION, HAS BEEN CONFIRMED THE DECISION THRESHOLD FOR [place] DIAGNOSIS. Performed By: #### B SAMARIA MORILLO #### [facility] [address] [place] [address] Dr. Tori Mills TAMIKO 36 ng/mL Normal 16-96 [facility] Comment on above: Performed By: #### SAMARIA Jerez MP #### [facility] [address] [place] [address] Dr. Tori Mills CBC AUTO DIFFon 06-11-2022 BASO # 0.0 103/ul Normal 0.0-0.1 [facility] Comment on above: Performed By: #### M ALBR #### [facility] [address] [place] [address] Dr. Tori Mills Basophils/100 WBC (Bld) 0.6 % Normal 0.2-2.0 [facility] Comment on above: Performed By: #### M ALBR #### [facility] [address] [place] [address] Dr. Tori Mills EO # 0.1 103/ul Normal 0.0-0.7 [facility] Comment on above: Performed By: #### M ALBR #### [facility] [address] [place] [address] Dr. Tori Mills Eosinophils/100 WBC (Bld) 1.0 % Normal 0.9-7.0 [facility] Comment on above: Performed By: #### M ALBR #### [facility] [address] [place] [address] Dr. Tori Mills Erythrocyte distribution width (RBC) [Ratio] 12.9 % Normal 11.0-15.0 [facility] Comment on above: Performed By: #### M ALBR #### [facility] [address] [place] [address] Dr. Tori Mills Hematocrit (Bld) [Volume fraction] 25.2 % Critically low 42.0-54.0 [facility] Comment on above: Performed By: #### M ALBR #### [facility] [address] [place] [address] Dr. Tori Mills Hemoglobin (Bld) [Mass/Vol] 7.7 g/dL Critically low 14.0-18.0 [facility] Comment on above: Performed By: #### M ALBR #### [facility] [address] [place] [address] Dr. Tori Mills IG # 0.03 10e3/ul Normal 0.00-0.03 [facility] Comment on above: Performed By: #### M ALBR #### [facility] [address] [place] [address] Dr. Tori Mills IG % 0.4 % Normal 0.0-0.5 [facility] Comment on above: Performed By: #### M ALBR #### [facility] [address] [place] [address] Dr. Tori Mills LYMPH # 1.9 103/ul Normal 1.2-3.8 [facility] Comment on above: Performed By: #### M ALBR #### [facility] [address] [place] [address] Dr. Tori Mills Lymphocytes/100 WBC (Bld) 28.0 % Normal 20.5-60.0 [facility] Comment on above: Performed By: #### M ALBR #### [facility] [address] [place] [address] Dr. Tori Mills MANUAL DIFF REQ NO Normal [facility] Comment on above: Performed By: #### M ALBR #### [facility] [address] [place] [address] Dr. Tori Mills MCH (RBC) [Entitic mass] 31.3 pg Normal 25.9-34.0 [facility] Comment on above: Performed By: #### M ALBR #### [facility] [address] [place] [address] Dr. Tori Mills MCHC (RBC) [Mass/Vol] 30.6 g/dL Normal 29.9-35.2 [facility] Comment on above: Performed By: #### M ALBR #### [facility] [address] [address] [address] Tori Mills MCV (RBC) [Entitic vol] 102.4 fL Critically high 80.0-94 .0 [facility] Comment on above: Performed By: #### M ALBR #### [facility] [address] [place] [address] Dr. Tori Mills MONO # 0.7 103/ul Normal 0.3-0.8 [facility] Comment on above: Performed By: #### M ALBR #### [facility] [address] [place] [address] Dr. Tori Mills Monocytes/100 WBC (Bld) 10.2 % Normal 1.7-12.0 [facility] Comment on above: Performed By: #### M ALBR #### [facility] [address] [place] [address] Dr. Tori Mills NEUT # 4.1 103/ul Normal 1.4-6.5 [facility] Comment on above: Performed By: #### M ALBR #### [facility] [address] [place] [address] Dr. Tori Mills Neutrophils/100 WBC (Bld) 59.8 % Normal 43.0-75.0 [facility] Comment on above: Performed By: #### M ALBR #### [facility] [address] [place] [address] Dr. Tori Mills Platelet mean volume (Bld) [Entitic vol] 11.6 fL Normal 9.5-13.5 [facility] Comment on above: Performed By: #### M ALBR #### [facility] [address] [address] [address] Tori Mills PLT 173 103/ul Normal 150-450 [facility] Comment on above: Performed By: #### M ALBR #### [facility] [address] [address] [address] Tori Mills RBC 2.46 106/ul Critically low 4.70-6.10 [facility] Comment on above: Performed By: #### M ALBR #### [facility] [address] [address] [address] Tori Mills WBC 6.8 103/ul Normal 4.0-11.0 [facility] Comment on above: Performed By: #### M ALBR #### [facility] [address] [place] [address] Dr. Tori Mills FERRITINon 06-11-2022 Ferritin [Mass/Vol] 17.0 ng/mL Critically low 26.0-388.0 [facility] Comment on above: Performed By: #### B YISEL, CMADM #### [facility] [address] [address] [address] Tori Mills IRON AND TIBCon 06-11-2022 % SATURATION 6.4 % Normal [facility] Comment on above: Performed By: #### B YISEL, CMADM #### [facility] [address] [address] [address] Tori Mills Iron [Mass/Vol] 27.0 ug/dL Critically low 65.0-175.0 [facility] Comment on above: Performed By: #### B YISEL, CMADM #### [facility] [address] [address] [address] Tori Mills TIBC DIRECT 420.0 ug/dL Normal 250.0-450.0 [facility] Comment on above: Performed By: #### B YISEL, CMADM #### [facility] [address] [place] [address] Dr. Tori Mills MAGNESIUMon 06-11-2022 Magnesium [Mass/Vol] 1.7 mg/dL Critically low 1.8-2.4 [facility] Comment on above: Performed By: #### B WILI MORILLODM #### [facility] [address] [address] [address] Tori Mills PROF CHEM 8 (BAS METB)on Anion gap [Moles/Vol] 11.3 mmol/L Normal Th [facility] Comment on above: Performed By: #### B YISEL, WILIDM #### [facility] [address] [place] [address] Dr. Tori Mills Calcium [Mass/Vol] 8.7 mg/dL Normal 8.5-10.1 [facility] Comment on above: Performed By: #### B WILI MORILLODM #### [facility] [address] [place] [address] Dr. Tori Mills Chloride [Moles/Vol] 102 mmol/L Normal 98-107 [facility] Comment on above: Performed By: #### B WILI MORILLODM #### [facility] [address] [place] [address] Dr. Tori Mills CO2 [Moles/Vol] 31.4 mmol/L Normal 21.0-32.0 [facility] Comment on above: Performed By: #### B SAMARIA MORILLO #### [facility] [address] [place] [address] Dr. Tori Mills Creatinine [Mass/Vol] 0.70 mg/dL Normal 0.70-1.30 [facility] Comment on above: Performed By: #### SAMARIA Jerez MP #### [facility] [address] [place] [address] Dr. Tori Mills EGFR-AF BURMESE >60 Normal >=60 [facility] Comment on above: Performed By: #### B WILI MORILLODM #### [facility] [address] [place] [address] Dr. Tori Mills EGFR-NON AF BURMESE >60 Normal >=60 [facility] Comment on above: Performed By: #### B YISEL, WILIDM #### [facility] [address] [place] [address] Dr. Tori Mills Glucose [Mass/Vol] 127 mg/dL Critically high 74-106 T [facility] Comment on above: Performed By: #### B YISEL, SAMARIA #### [facility] [address] [place] [address] Dr. Tori Mills Potassium [Moles/Vol] 3.7 mmol/L Normal 3.5-5.1 [facility] Comment on above: Performed By: #### B YISEL, SAMARIA #### [facility] [address] [address] [address] Tori Mills Sodium [Moles/Vol] 141 mmol/L Normal 136-145 [facility] Comment on above: Performed By: #### B YISEL, SAMARIA #### [facility] [address] [place] [address] Dr. Tori Mills Urea nitrogen [Mass/Vol] 14.0 mg/dL Normal 7.0-18.0 [facility] Comment on above: Performed By: #### B SAMARIA MORILLO #### [facility] [address] [place] [address] Dr. Tori Mills Urea nitrogen/Creatinine [Mass ratio] 20.0 mg/mg Normal [facility] Comment on above: Performed By: #### B SAMARIA MORILLO #### [facility] [address] [place] [address] Dr. Tori Mills PROTIMEon 06-11-2022 INR Coag (PPP) [Relative time] 3.32 {INR} Normal [facility] Comment on above: Performed By: #### P T #### [facility] [address] [place] [address] Dr. Tori Mills INR GUIDELINES SEE BELOW Normal [facility] Comment on above: Result Comment: FRANCI RED INR: 2.0 - 3.0 CONDITIONS NOT LISTED BELOW 2.5 - 3.5 FOR PROSTHETIC HEART VALVE REPLACEMENT 2.5 - 3.5 RECURRENT THROMBOSIS Performed By: #### P T #### [facility] [address] [place] [address] Dr. Tori Mills PT Coag (PPP) [Time] 32.9 s Critically high 9.0-11.6 [facility] Comment on above: Performed By: #### P T #### [facility] [address] [place], [place] [address] Dr. Tori Mills TSHon 06-11-2022 TSH 1.084 uIU/mL Normal 0.358-3.740 [facility] Comment on above: Performed By: #### B MP, CMADM #### [facility] [address] [place], [place] [address] Dr. Tori Mills XR CHEST 1 Von 06-11-2022 XR CHEST 1 V EXAM: XR CHEST 1 V a t 1949 hours HISTORY: Syncope COMPARISON: 07/09/2019 TECHNIQUE: AP upright portable chest x-ray FINDINGS: The heart is not enlarged and the vasculature is not distended. Subtle opacity at the left lung base indicates atelectasis or infiltrate. The lungs otherwise clear without other evidence of a focal infiltrate, effusion or pneumothorax. The osseous structures are grossly intact. IMPRESSION: Subtle opacity at the left lung base indicates a small amount of atelectasis or infiltrate. There is no other evidence of a focal infiltrate. There is no evidence of cardiac decompensation, the overall appearance of the chest is otherwise unchanged. Electronically authenticated by: CHELE MALAVE Date: 2022-06-11 20:24 Normal [facility] Office Visit (Cardiology)on 06-08-2022 Follow-up visit Diagnoses/Problems Assessed CAD (coronary artery disease) (414.00) (I25.10) COPD (chronic obstructive pulmonary disease) (496) (J44.9) CVA (cerebral vascular accident) (434.91) (I63.9) Diabetes mellitus (250.00) (E11.9) Dizziness (780.4) (R42) Hyperlipidemia (272.4) (E78.5) Atrial fib/flutter, transient Current every day smoker (305.1) (F17.200) 1 ppd High risk medication use (V58.69) (Z79.899) Overweight with body mass index (BMI) of 28 to 28.9 in adult (278.02,V85.24) (E66.3,Z68.28) 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 Prescriptions will not be filled unless you are compliant with your follow up appointments or have a follow up appointment scheduled as per instruction of your physician. Refills should be requested at the time of your visit. FALL PREVENTION EDUCATION GIVEN Patient has been out of Sotalol. RX to be updated Recommendation is to Utilize depression stockings. Increase fluid and sodium intake. Patient to update office in 1 week on how he is feeling with dizziness. Monitor blood pressure at home. Once in the morning and once at night. Keep follow up appt as scheduled Chief Complaint SEN KRISTINE is being seen for ov per i. Patient was added to my schedule today since he has been calling the office complaining of symptoms highly suggestive of orthostatic hypotension. As of late the patient has noticed that whenever he stands up from a sitting position or ambulates he becomes very dizzy and has to sit down. He was indeed found to have hypotension that is orthostatic in our office today his EKG showed normal sinus rhythm with normal QTc interval. He has missed taking the sotalol for nearly a week due to missing his bottle. He has no diaphoresis and no chest pain and no syncope. Patient has longstanding diabetes and probably has developed orthostatic hypotension from autonomic dysfunction. Assessment/recommendat ions: 1?paroxysmal atrial fibrillation currently in sinus rhythm on sotalol and long-term anticoagulation with Coumadin managed by his PCP in [place], prescription for sotalol was provided since he lost his bottle. 2?active tobacco abuse, education provided to end tobacco use. 3?COPD that is mild, advised patient to quit smoking altogether 4?history of coronary disease with no prior coronary interventions. Nuclear stress test March 2021 was normal, recommended aggressive risk factors modifications statin with tobacco cessation, aspirin dose will be reduced to twice weekly since he is on full dose Coumadin 5?hyperlipidemia on medical therapy with statin 6?diabetes managed by PCP. 7?overweight, encouraged patient to bring his BMI down with diet and exercise 8?remote history of stroke with no residual deficit 9?orthostatic hypotension on no medications to cause it. This is likely caused by autonomic dysfunction from longstanding diabetes. Midodrine 5 mg twice daily was prescribed, encouraged the patient to utilize compression stockings and keep himself hydrated. He will call the office in a week to give us an update on his response to medical therapy. Surgical History Problems History of Back surgery History of Complete colonoscopy History of Elbow surgery History of Inguinal hernia repair History of Vasectomy Current Meds Medication NameInstruction Actos 15 MG Oral TabletTAKE 1 TABLET ONCE DAILY. Aspirin 81 MG Oral Tablet Delayed Releasetake one tablet on Wed and only Colace 100 MG Oral CapsuleTAKE CAPSULE prn Cyclobenzaprine HCl - 10 MG Oral TabletTAKE TABLET PRN Flomax 0.4 MG Oral CapsuleTAKE 1 CAPSULE Daily [place] 7.5-325 MG TABSTAKE 1 TABLET EVERY 6 HOURS NEEDED FOR PAIN. Omeprazole 40 MG Oral Capsule Delayed ReleaseTAKE 1 CAPSULE Daily Simvastatin 40 MG Oral TabletTAKE 1 TABLET AT BEDTIME Venlafaxine HCl - 75 MG Oral TabletTAKE 1 TABLET DAILY. Warfarin Sodium 2 MG Oral TabletTake as directed by Dr. Abreu Zolpidem Tartrate 10 MG Oral TabletTAKE 1 TABLET AT BEDTIME. Patient did not bring medication list or bottles. Updated verbally with patient Allergies Medication No Known Drug Allergies Recorded By: Vilma Baxter; 08/21/2021 10:52:48 AM Social History Problems Caffeine use (V49.89) (Z78.9) 2 pots coffee daily Current every day smoker (305.1) (F17.200) 1 ppd No alcohol use No illicit drug use Review of Systems Constitutional: not feeling tired. Cardiovascular: no intermittent leg claudication and as noted in HPI. Respiratory: shortne (more content not included)... Normal Phone [facility] Tobacco Screening.on 023 Fall risk assessment b) One or more fall s in the last year -[facility] [employer] 250 DO Work Phone: Tobacco use status [facility] a) Yes M [facility] [employer] 250 DO Work Phone: Tobacco Screening. Yes -[facility] [employer] 250 DO Work Phone: PROTIMEon 06-02-2022 INR Coag (PPP) [Relative time] 2.48 {INR} Normal [facility] Comment on above: Performed By: #### P T #### [facility] [address] [place] [address] Dr. Tori Mills INR GUIDELINES SEE BELOW Normal [facility] Comment on above: Result Comment: FRANCI RED INR: 2.0 - 3.0 CONDITIONS NOT LISTED BELOW 2.5 - 3.5 FOR PROSTHETIC HEART VALVE REPLACEMENT 2.5 - 3.5 RECURRENT THROMBOSIS Performed By: #### P T #### [facility] [address] [place] [address] Dr. Tori Mills PT Coag (PPP) [Time] 25.2 s Critically high 9.0-11.6 [facility] Comment on above: Performed By: #### P T #### [facility] [address] [place] [address] Dr. Tori Mills PROTIMEon 05-26-2022 INR Coag (PPP) [Relative time] 4.70 {INR} Critically high [facility] Comment on above: Performed By: #### O BSCRN #### [facility] [address] [place] [address] Dr. Tori Mills INR GUIDELINES SEE BELOW Normal [facility] Comment on above: Result Comment: FRANCI RED INR: 2.0 - 3.0 CONDITIONS NOT LISTED BELOW 2.5 - 3.5 FOR PROSTHETIC HEART VALVE REPLACEMENT 2.5 - 3.5 RECURRENT THROMBOSIS Performed By: #### O BSCRN #### [facility] [address] [place] [address] Dr. Tori Mills PT Coag (PPP) [Time] 45.9 s Critically high 9.0-11.6 [facility] Comment on above: Performed By: #### O BSCRN #### [facility] [address] [place] [address] Dr. Tori Mills PROTIMEon 04-16-2022 INR Coag (PPP) [Relative time] 2.96 {INR} Normal [facility] Comment on above: Performed By: #### P T #### [facility] [address] [place], [place] [address] Dr. Tori Mills INR GUIDELINES SEE BELOW Normal [facility] Comment on above: Result Comment: FRANCI RED INR: 2.0 - 3.0 CONDITIONS NOT LISTED BELOW 2.5 - 3.5 FOR PROSTHETIC HEART VALVE REPLACEMENT 2.5 - 3.5 RECURRENT THROMBOSIS Performed By: #### P T #### [facility] [id number] Tori Mills PT Coag (PPP) [Time] 29.8 s Critically high 9.0-11.6 [facility] Comment on above: Performed By: #### P T #### [facility] [address] [address] [address] Tori Mills Office Visit (Cardiology)on 04-10-2022 Follow-up visit Diagnoses/Problems Assessed CAD (coronary artery disease) (414.00) (I25.10) Atrial fib/flutter, transient High risk medication use (V58.69) (Z79.899) Hyperlipidemia (272.4) (E78.5) Diabetes mellitus (250.00) (E11.9) Current every day smoker (305.1) (F17.200) 1 ppd Overweight with body mass index (BMI) of 29 to 29.9 in adult (278.02,V85.25) (E66.3,Z68.29) CVA (cerebral vascular accident) (434.91) (I63.9) COPD (chronic obstructive pulmonary disease) (496) (J44.9) Orders Atrial fib/flutter, transient, CAD (coronary artery disease) IO EKG Electrocardiogram- 12 Lead; Status:Complete; Done: 10Apr2022 Atrial fib/flutter, transient, CAD (coronary artery disease), High risk medication use Basic Metabolic Panel; Status:Active - Retrospective Authorization; Requested for:10Apr2022; Complete Blood Count; Status:Active - Retrospective Authorization; Requested for:10Apr2022; CAD (coronary artery disease) Stop: Aspirin EC 81 MG Oral Tablet Delayed Release CAD (coronary artery disease), CVA (cerebral vascular accident) Start: Aspirin 81 MG Oral Tablet Delayed Release; take one tablet on Wed and only Renew: Simvastatin 40 MG Oral Tablet; TAKE 1 TABLET AT BEDTIME CAD (coronary artery disease), Hyperlipidemia ALT - Alanine Aminotransferase, Serum; Status:Active - Retrospective Authorization; Requested for:10Apr2022; AST; Status:Active - Retrospective Authorization; Requested for:10Apr2022; Lipid Panel; Status:Active - Retrospective Authorization; Requested for:10Apr2022; Overweight with body mass index (BMI) of 29 to 29.9 in adult Healthy Weight Tips; Status:Complete - Retrospective Authorization; Done: 10Apr2022 Some eating tips that can help you lose weight.; Status:Complete - Retrospective Authorization; Done: 10Apr2022 SocHx: Current every day smoker You need to stop smoking. Though it is not easy, more than half of all adult smokers have quit. We encourage you to write down all the reasons you should quit smoking and set a quit date for yourself. Ask us how we can help. You may also call 8-210-BVXKNOW for free resources and assistance.; Status:Complete - Retrospective Authorization; Done: 10Apr2022 Tobacco Use Screening; Status:Complete; Done: 10Apr2022 Patient Instructions Please bring all medicines, vitamins, and herbal supplements with you when you come to the office. Prescriptions will not be filled unless you are compliant with your follow up appointments or have a follow up appointment scheduled as per instruction of your physician. Refills should be requested at the time of your visit. Follow up in 6 months The provider reviewed the following test(s) and result(s) with the patient: ECG Chief Complaint SEN GARCIA is being seen for a 6 month follow-up of. Patient is in the office for follow-up for the problems noted below. He reports no symptoms of palpitations chest pain orthopnea PND or lower extremity edema. His medical therapy was reviewed with him. He is on sotalol 80 mg twice daily EKG revealed normal sinus rhythm and normal intervals. He is due for lipid profile which is ordered. He continues to smoke something that I advised him to get and as soon as possible. He does have dyspnea on exertion related to COPD. His weight remains above target. Assessment/recommendat ions: 1?paroxysmal atrial fibrillation currently in sinus rhythm on sotalol and long-term anticoagulation with Coumadin managed by his PCP in [place] 2?active tobacco abuse, education provided to end tobacco use. 3?COPD that is mild, advised patient to quit smoking altogether 4?history of coronary disease with no prior coronary interventions. Nuclear stress test March 2021 was normal, recommended aggressive risk factors modifications statin with tobacco cessation, aspirin dose will be reduced to twice weekly since he is on full dose Coumadin 5?hyperlipidemia on medical therapy with statin, lipids will be done in next few weeks through PCP 6?diabetes managed by PCP. A1c is being followed closely 7?overweight, encouraged patient to bring his BMI down with diet and exercise 8?remote history of stroke with no residual deficit Current Meds Medication NameInstruction Actos 15 MG Oral TabletTAKE 1 TABLET ONCE DAILY. Aspirin EC 81 MG Oral Tablet Delayed ReleaseTake 1 tablet daily Colace 100 MG Oral CapsuleTAKE CAPSULE prn Cyclobenzaprine HCl - 10 MG Oral TabletTAKE TABLET PRN Flomax 0.4 MG Oral CapsuleTAKE 1 CAPSULE Daily [place] 7.5-325 MG TABSTAKE 1 TABLET EVERY 6 HOURS NEEDED FOR PAIN. Omeprazole 40 MG Oral Capsule Delayed ReleaseTAKE 1 CAPSULE Daily Simvastatin 40 MG Oral TabletTAKE 1 TABLET AT BEDTIME Sotalol HCl - 80 MG Oral TabletTake 1 tablet twice daily Venlafaxine HCl - 75 MG Oral TabletTAKE 1 TABLET DAILY. Warfarin Sodium 2 MG Oral TabletTake as directed by Dr. Abreu Zolpidem Tartrate 10 MG Oral TabletTAKE 1 TABLET AT BEDTIME. Allergies Medication No Known Drug Allergie (more content not included)... Normal Phone [facility] Tobacco Screening.on 022 Fall risk assessment a) No falls within the last year [facility] [employer] [place] 250 DO Work Phone: Tobacco use status [facility] a) Yes M [facility] [employer] [place] 250 DO Work Phone: Tobacco Screening. Yes -[facility] [employer] [place] 250 DO Work Phone: PROTIMEon 04-01-2022 INR Coag (PPP) [Relative time] 3.52 {INR} Normal [facility] Comment on above: Performed By: #### M ALBR #### [facility] [address] [address] [address] Tori Mills INR GUIDELINES SEE BELOW Normal [facility] Comment on above: Result Comment: FRANCI RED INR: 2.0 - 3.0 CONDITIONS NOT LISTED BELOW 2.5 - 3.5 FOR PROSTHETIC HEART VALVE REPLACEMENT 2.5 - 3.5 RECURRENT THROMBOSIS Performed By: #### M ALBR #### [facility] [address] [place] [address] Dr. Tori Mills PT Coag (PPP) [Time] 35.0 s Critically high 9.0-11.6 [facility] Comment on above: Performed By: #### M ALBR #### [facility] [address] [place] [address] Dr. Tori Mills PROTIMEon 03-16-2022 INR Coag (PPP) [Relative time] 5.12 {INR} Critically high [facility] Comment on above: Performed By: #### P T #### [facility] [address] [place] [address] Dr. Tori Mills INR GUIDELINES SEE BELOW Normal [facility] Comment on above: Result Comment: FRANCI RED INR: 2.0 - 3.0 CONDITIONS NOT LISTED BELOW 2.5 - 3.5 FOR PROSTHETIC HEART VALVE REPLACEMENT 2.5 - 3.5 RECURRENT THROMBOSIS Performed By: #### P T #### [facility] [address] [place] [address] Dr. Tori Mills PT Coag (PPP) [Time] 49.7 s Critically high 9.0-11.6 [facility] Comment on above: Performed By: #### P T #### [facility] [address] [place] [address] Dr. Tori Mills PROTIMEon 02-05-2022 INR Coag (PPP) [Relative time] 3.20 {INR} Normal [facility] Comment on above: Performed By: #### B SAMARIA MORILLO #### [facility] [address] [place] [address] Dr. Tori Mills INR GUIDELINES SEE BELOW Normal [facility] Comment on above: Result Comment: FRANCI RED INR: 2.0 - 3.0 CONDITIONS NOT LISTED BELOW 2.5 - 3.5 FOR PROSTHETIC HEART VALVE REPLACEMENT 2.5 - 3.5 RECURRENT THROMBOSIS Performed By: #### B YISEL, CMADM #### [facility] [address] [place] [address] Dr. Tori Mills PT Coag (PPP) [Time] 32.0 s Critically high 9.0-11.6 [facility] Comment on above: Performed By: #### B MP, WILIDM #### [facility] [address] [place] [address] Dr. Tori Mills PROTIMEon 12-31-2021 INR Coag (PPP) [Relative time] 2.78 {INR} Normal [facility] Comment on above: Performed By: #### P T #### [facility] [address] [place] [address] Dr. Tori Mills INR GUIDELINES SEE BELOW Normal [facility] Comment on above: Result Comment: FRANCI RED INR: 2.0 - 3.0 CONDITIONS NOT LISTED BELOW 2.5 - 3.5 FOR PROSTHETIC HEART VALVE REPLACEMENT 2.5 - 3.5 RECURRENT THROMBOSIS Performed By: #### P T #### [facility] [address] [place] [address] Dr. Tori Mills PT Coag (PPP) [Time] 28.1 s Critically high 9.0-11.6 [facility] Comment on above: Performed By: #### P T #### [facility] [address] [place] [address] Dr. Tori Mills PROTIMEon 12-03-2021 INR Coag (PPP) [Relative time] 2.49 {INR} Normal [facility] Comment on above: Performed By: #### M ALBR #### [facility] [address] [place] [address] Dr. Tori Mills INR GUIDELINES SEE BELOW Normal [facility] Comment on above: Result Comment: FRANCI RED INR: 2.0 - 3.0 CONDITIONS NOT LISTED BELOW 2.5 - 3.5 FOR PROSTHETIC HEART VALVE REPLACEMENT 2.5 - 3.5 RECURRENT THROMBOSIS Performed By: #### M ALBR #### [facility] [address] [place] [address] Dr. Tori Mills PT Coag (PPP) [Time] 25.3 s Critically high 9.0-11.6 [facility] Comment on above: Performed By: #### M ALBR #### [facility] [address] [place] [address] Dr. Tori WATSONIMEon 11-13-2021 INR Coag (PPP) [Relative time] 3.05 {INR} Normal [facility] Comment on above: Performed By: #### B MP, CMADM #### [facility] [address] [place] [address] Dr. Tori Mills INR GUIDELINES SEE BELOW Normal [facility] Comment on above: Result Comment: FRANCI RED INR: 2.0 - 3.0 CONDITIONS NOT LISTED BELOW 2.5 - 3.5 FOR PROSTHETIC HEART VALVE REPLACEMENT 2.5 - 3.5 RECURRENT THROMBOSIS Performed By: #### B MP, CMADM #### [facility] [address] [place] [address] Dr. Tori Mills PT Coag (PPP) [Time] 30.6 s Critically high 9.0-11.6 [facility] Comment on above: Performed By: #### B MP, CMADM #### [facility] [address] [place] [address] Dr. Tori Noble 10-02-2021 INR Coag (PPP) [Relative time] 3.11 {INR} Normal [facility] Comment on above: Performed By: #### B MP, CMADM #### [facility] [address] [place] [address] Dr. Tori Mills INR GUIDELINES SEE BELOW Normal [facility] Comment on above: Result Comment: FRANCI RED INR: 2.0 - 3.0 CONDITIONS NOT LISTED BELOW 2.5 - 3.5 FOR PROSTHETIC HEART VALVE REPLACEMENT 2.5 - 3.5 RECURRENT THROMBOSIS Performed By: #### B MP, CMADM #### [facility] [address] [place] [address] Dr. Tori Mills PT Coag (PPP) [Time] 31.2 s Critically high 9.0-11.6 [facility] Comment on above: Performed By: #### B MP, CMADM #### [facility] [address] [place] [address] Dr. Tori WATSONIMEmary 09-03-2021 INR Coag (PPP) [Relative time] 2.97 {INR} Normal [facility] Comment on above: Performed By: #### P T #### [facility] [address] [address] [address] Tori Mills INR GUIDELINES SEE BELOW Normal [facility] Comment on above: Result Comment: FRANCI RED INR: 2.0 - 3.0 CONDITIONS NOT LISTED BELOW 2.5 - 3.5 FOR PROSTHETIC HEART VALVE REPLACEMENT 2.5 - 3.5 RECURRENT THROMBOSIS Performed By: #### P T #### [facility] [address] [address] [address] Tori Mills PT Coag (PPP) [Time] 29.9 s Critically high 9.0-11.6 [facility] Comment on above: Performed By: #### P T #### [facility] [address] [place] [address] Dr. Tori Mills Tobacco Screening.on 022 Adult depression screening assessment No [facility] [employer] 250 DO Work Phone: Fall risk assessment a) No falls within the last year [facility] [employer] 250 DO Work Phone: Tobacco use status CP a) Yes [facility] 250 DO Work Phone: Tobacco Screening. Yes [facility] [place] 250 DO Work Phone: Tobacco Screening. 0-Not at all [facility] 250 DO Work Phone: PROTIMEon 08-05-2021 INR Coag (PPP) [Relative time] 3.03 {INR} Normal [facility] Comment on above: Performed By: #### P T #### [facility] [address] [place] [address] Dr. Tori Mills INR GUIDELINES SEE BELOW Normal [facility] Comment on above: Result Comment: FRANCI RED INR: 2.0 - 3.0 CONDITIONS NOT LISTED BELOW 2.5 - 3.5 FOR PROSTHETIC HEART VALVE REPLACEMENT 2.5 - 3.5 RECURRENT THROMBOSIS Performed By: #### P T #### [facility] [address] [place] [address] Dr. Tori Mills PT Coag (PPP) [Time] 30.4 s Critically high 9.0-11.6 [facility] Comment on above: Performed By: #### P T #### [facility] [address] [place] [address] Dr. Tori Mills PROTIMEon 07-09-2021 INR Coag (PPP) [Relative time] 2.36 {INR} Normal [facility] Comment on above: Performed By: #### B YISEL, SAMARIA #### [facility] [address] [place] [address] Dr. Tori Mills INR GUIDELINES SEE BELOW Normal [facility] Comment on above: Result Comment: FRANCI RED INR: 2.0 - 3.0 CONDITIONS NOT LISTED BELOW 2.5 - 3.5 FOR PROSTHETIC HEART VALVE REPLACEMENT 2.5 - 3.5 RECURRENT THROMBOSIS Performed By: #### B YISEL, SAMARIA #### [facility] [address] [place] [address] Dr. Tori Mills PT Coag (PPP) [Time] 24.1 s Critically high 9.0-11.6 [facility] Comment on above: Performed By: #### B YISEL, SAMARIA #### [facility] [address] [place] [address] Dr. Tori Mills No Panel Informationon 04-01 Normal -[facility] 600 DO Work Phone: Vital Signs Date Time Vital Sign Value Performing Clinician Facility 04-13-2023 10:44-0500 Body height 167.6 cm Israel Escamilla MD Work Phone: [facility] 04-13-2023 10:44-0500 Body mass index (BMI) [Ratio] 28.89 kg/m2 Israel Escamilla MD Work Phone: [facility] 04-13-2023 10:44-0500 Body weight 81.19 kg Israel Escamilla MD Work Phone: [facility] 04-13-2023 10:44-0500 Diastolic blood pressure 78 mm[Hg] Israel Escamilla MD Work Phone: [facility] 04-13-2023 10:44-0500 Heart rate 71 /min Israel Escamilla MD Work Phone: [facility] 04-13-2023 10:44-0500 Systolic blood pressure 134 mm[Hg] Israel Escamilla MD Work Phone: [facility] 10-07-2022 15:40-0400 Body height 170.18 cm Pablo A Naderer Work Phone: [facility] 250 DO Work Phone: 10-07-2022 15:40-0400 Body mass index (BMI) [Ratio] 29.45 kg/m2 Pablo A Naderer Work Phone: [facility] 250 DO Work Phone: 10-07-2022 15:40-0400 Body surface area Derived from formula 1.97 m2 Pablo A Naderer Work Phone: [facility] 250 DO Work Phone: 10-07-2022 15:40-0400 Body weight 85.28 kg Pablo A Naderer Work Phone: [facility] 250 DO Work Phone: 10-07-2022 15:40-0400 Diastolic blood pressure 76 mm[Hg] Pablo A Naderer Work Phone: [facility] 250 DO Work Phone: 10-07-2022 15:40-0400 Heart rate 75 /min Pablo A Naderer Work Phone: [facility] 250 DO Work Phone: 10-07-2022 15:40-0400 Systolic blood pressure 130 mm[Hg] Pablo Maxine Naderer Work Phone: [facility] 250 DO Work Phone: 09-30-2022 11:24-0400 Diastolic blood pressure 80 mm[Hg] Pablo Maxine Naderer Work Phone: [facility] 250 DO Work Phone: 09-30-2022 11:24-0400 Systolic blood pressure 118 mm[Hg] Pablo Maxine Naderer Work Phone: [facility] 250 DO Work Phone: 09-30-2022 11:13-0400 Body height 170.18 cm Pablo Maxine Naderer Work Phone: [facility] 250 DO Work Phone: 09-30-2022 11:13-0400 Body mass index (BMI) [Ratio] 29.29 kg/m2 Pablo Maxien Naderer Work Phone: [facility] 250 DO Work Phone: 09-30-2022 11:13-0400 Body surface area Derived from formula 1.97 m2 Pablo Maxine Naderer Work Phone: [facility] 250 DO Work Phone: 09-30-2022 11:13-0400 Body weight 84.82 kg Pablo Maxine Naderer Work Phone: [facility] 250 DO Work Phone: 09-30-2022 11:13-0400 Diastolic blood pressure 88 mm[Hg] Pablo Maxine Naderer Work Phone: [facility] 250 DO Work Phone: 09-30-2022 11:13-0400 Heart rate 78 /min Pablo Maxine Naderer Work Phone: [facility] [place] [facility] 250 DO Work Phone: 09-30-2022 11:13-0400 Systolic blood pressure 140 mm[Hg] Pablo Abreu Work Phone: [facility] 250 DO Work Phone: 09-03-2022 14:07-0400 Diastolic blood pressure 75 mm[Hg] MD Consuelo Johnson Work Phone: [facility] 09-03-2022 14:07-0400 Heart rate 69 /min MD Consuelo Johnson Work Phone: [facility] 09-03-2022 14:07-0400 Respiratory rate 16 /min MD Consuelo Johnson Work Phone: [facility] 09-03-2022 14:07-0400 SaO2% (BldA) [Mass fraction] 97 % MD Consuelo Johnson Work Phone: [facility] 09-03-2022 14:07-0400 Systolic blood pressure 121 mm[Hg] MD Consuelo Johnson Work Phone: [facility] 09-03-2022 11:43-0400 Body height 170.18 cm MD Consuelo Johnson Work Phone: [facility] 09-03-2022 11:43-0400 Body temperature 97.6 [degF] MD Consuelo Johnson Work Phone: [facility] 09-03-2022 11:43-0400 Body weight 81.64 kg MD Consuelo Johnson Work Phone: [facility] 08-20-2022 09:37-0400 Body temperature 97.6 [degF] MD Consuelo Johnson Work Phone: [facility] 08-20-2022 09:37-0400 Body weight 84.5 kg MD Consuelo Johnson Work Phone: [facility] 08-20-2022 09:37-0400 Diastolic blood pressure 83 mm[Hg] MD Cordero Ramesh Work Phone: [facility] 08-20-2022 09:37-0400 Heart rate 86 /min MD Cordero Ramesh Work Phone: [facility] 08-20-2022 09:37-0400 Respiratory rate 20 /min MD Cordero Ramesh Work Phone: [facility] 08-20-2022 09:37-0400 SaO2% (BldA) [Mass fraction] 93 % MD Cordero Pacoad Work Phone: [facility] 08-20-2022 09:37-0400 Systolic blood pressure 135 mm[Hg] MD Cordero Ramesh Work Phone: [facility] 08-05-2022 11:41-0500 Body height 170.18 cm Pablo Gallowaymerryr Work Phone: KL[facility]Irfvjashhy-HYW [facility] [address] [place] Work Phone: 08-05-2022 11:41-0500 Body mass index (BMI) [Ratio] 29.13 kg/m2 Pablo Nurr Work Phone: FE-Mgbtdibupe-UWC [facility] [address] [place] Work Phone: 08-05-2022 11:41-0500 Body surface area Derived from formula 1.96 m2 Pablo Nurr Work Phone: PS-Zcuxizohmc-TXP [facility] [address] [place] Work Phone: 08-05-2022 11:41-0500 Body temperature 96.6 [degF] Pablo Nurr Work Phone: TN-Prpemibkne-EZN [facility] [address] [place] Work Phone: 08-05-2022 11:41-0500 Body weight 84.37 kg Pablo Nurr Work Phone: HQ-Stwfiefiuy-LRZ [facility] [address] [place] Work Phone: 08-05-2022 11:41-0500 Diastolic blood pressure 84 mm[Hg] Pablo Gallowayerer Work Phone: EN-Ufooexqydg-PAF [facility] [address] [place] Work Phone: 08-05-2022 11:41-0500 Heart rate 82 /min Pablo Gallowayerer Work Phone: NH-Tkkuzphbnz-AHB [facility] [address] [place] Work Phone: 08-05-2022 11:41-0500 Respiratory rate 16 /min Pablo Gallowayerer Work Phone: FA-Kqpngncoeb-UNG [facility] [address] [place] Work Phone: 08-05-2022 11:41-0500 SaO2% (BldA) [Mass fraction] 96 % Pablo Gallowayerer Work Phone: [id number]-SAF Jada Meléndez [address] [place] Work Phone: 08-05-2022 11:41-0500 Systolic blood pressure 146 mm[Hg] Pablo Gallowayerer Work Phone: QR-Wwiabqkajy-XNY Jada Meléndez [address] [place] Work Phone: 08-03-2022 15:06-0500 Body weight 83.4 kg MD Cordero Asaad Work Phone: [facility] 08-03-2022 15:06-0500 Diastolic blood pressure 96 mm[Hg] MD Cordero Asaad Work Phone: [facility] 08-03-2022 15:06-0500 Heart rate 86 /min MD Cordero Asaad Work Phone: [facility] 08-03-2022 15:06-0500 Respiratory rate 16 /min MD Cordero Asaad Work Phone: [facility] 08-03-2022 15:06-0500 SaO2% (BldA) [Mass fraction] 98 % Imad Asaad Work Phone: [facility] 08-03-2022 15:06-0500 Systolic blood pressure 162 mm[Hg] Imroldan Asaad Work Phone: [facility] 08-03-2022 14:49-0500 Body height 170.18 cm Imroldan Asaad Work Phone: [facility] 07-29-2022 13:15-0500 Body height 167.64 cm Imad Asaad Other [facility] [employer] Other 07-29-2022 13:15-0500 Body mass index (BMI) [Ratio] 30.99 kg/m2 Imad Asaad Other [employer] Other 07-29-2022 13:15-0500 Body weight 87.09 kg Imad Asaad Other [employer] Other 07-29-2022 13:15-0500 Diastolic blood pressure 78 mm[Hg] Imad Asaad Other [employer] Other 07-29-2022 13:15-0500 Systolic blood pressure 127 mm[Hg] Imad Asaad Other [employer] Other 06-08-2022 13:44-0500 Body height 170.18 cm Pablo Goodman Naderer Work Phone: [facility] [employer] [address] [place] Work Phone: 06-08-2022 13:44-0500 Body mass index (BMI) [Ratio] 28.98 kg/m2 Pablo A Naderer Work Phone: [facility] [employer] 250 DO Work Phone: 06-08-2022 13:44-0500 Body surface area Derived from formula 1.96 m2 Pablo Goodman Naderer Work Phone: [facility] 250 DO Work Phone: 06-08-2022 13:44-0500 Body weight 83.92 kg Pablo Goodman Naderer Work Phone: [facility] 250 DO Work Phone: 06-08-2022 13:44-0500 Diastolic blood pressure 80 mm[Hg] Pablo Goodman Naderer Work Phone: [facility] 250 DO Work Phone: 06-08-2022 13:44-0500 Diastolic blood pressure 70 mm[Hg] Pablo Goodman Naderer Work Phone: [facility] 250 DO Work Phone: 06-08-2022 13:44-0500 Diastolic blood pressure 50 mm[Hg] Pablo Goodman Naderer Work Phone: [facility] 250 DO Work Phone: 06-08-2022 13:44-0500 Systolic blood pressure 122 mm[Hg] Pablo Goodman Naderer Work Phone: [facility] 250 DO Work Phone: 06-08-2022 13:44-0500 Systolic blood pressure 102 mm[Hg] Pablo Goodman Naderer Work Phone: [facility] 250 DO Work Phone: 06-08-2022 13:44-0500 Systolic blood pressure 82 mm[Hg] Pablo Goodman Naderer Work Phone: [facility] 250 DO Work Phone: 06-08-2022 13:44-0500 75 1 Pablo Goodman Naderer Work Phone: [facility] 250 DO Work Phone: Comment on above: [employer] 04-10-2022 14:17-0500 Body height 170.18 cm Pablo Maxine Laverneerer Work Phone: [facility] 250 DO Work Phone: 04-10-2022 14:17-0500 Body mass index (BMI) [Ratio] 29.45 kg/m2 Pablo Goodman Laverneerer Work Phone: [facility] 250 DO Work Phone: 04-10-2022 14:17-0500 Body surface area Derived from formula 1.97 m2 Pablo Goodman Laverneerer Work Phone: [facility] 250 DO Work Phone: 04-10-2022 14:17-0500 Body weight 85.28 kg Pablo Goodman Laverneerer Work Phone: [facility] 250 DO Work Phone: 04-10-2022 14:17-0500 Diastolic blood pressure 86 mm[Hg] Pablo Goodman Laverneerer Work Phone: [facility] 250 DO Work Phone: 04-10-2022 14:17-0500 Heart rate 77 /min Pablo Goodman Laverneerer Work Phone: [facility] 250 DO Work Phone: 04-10-2022 14:17-0500 Systolic blood pressure 118 mm[Hg] Pablo Goodman Laverneerer Work Phone: [facility] 250 DO Work Phone: 11-27-2021 14:35-0400 Body height 167.64 cm Nataliia Koch Other [employer] Other 11-27-2021 14:35-0400 Body mass index (BMI) [Ratio] 30.66 kg/m2 Nataliia Koch Other [employer] Other 11-27-2021 14:35-0400 Body temperature 97.7 [degF] Nataliia Koch Other [employer] Other 11-27-2021 14:35-0400 Body weight 86.18 kg Nataliia Koch Other [employer] Other 11-27-2021 14:35-0400 Diastolic blood pressure 75 mm[Hg] Nataliia Koch Other [employer] Other 11-27-2021 14:35-0400 Respiratory rate 18 /min Nataliia Koch Other [employer] Other 11-27-2021 14:35-0400 SaO2% (BldA) [Mass fraction] 99 % Nataliia Koch Other [employer] Other 11-27-2021 14:35-0400 Systolic blood pressure 124 mm[Hg] Nataliia Koch Other [employer] Other 08-21-2021 11:11-0400 Heart rate 69 /min Pablo A Naderer Work Phone: [employer] [facility] 250 DO Work Phone: 08-21-2021 10:59-0400 Body height 170.18 cm Pablo A Naderer Work Phone: [employer] 250 DO Work Phone: 08-21-2021 10:59-0400 Body mass index (BMI) [Ratio] 30.54 kg/m2 Pablo A Naderer Work Phone: [facility] 250 DO Work Phone: 08-21-2021 10:59-0400 Body surface area Derived from formula 2 m2 Pablo Maxine Naderer Work Phone: [facility] 250 DO Work Phone: 08-21-2021 10:59-0400 Body weight 88.45 kg Pablo Goodman Naderer Work Phone: [facility] 250 DO Work Phone: 08-21-2021 10:59-0400 Diastolic blood pressure 84 mm[Hg] Pablo Goodman Naderer Work Phone: [facility] 250 DO Work Phone: 08-21-2021 10:59-0400 Systolic blood pressure 128 mm[Hg] Pablo Gallowayerer Work Phone: [facility] 250 DO Work Phone: 04-01-2021 12:00-0400 52 1 Pablo Goodman Naderer Work Phone: [facility] [address] [place] Work Phone: Comment on above: [id number] Encounters Encounter Date Encounter Type Care Provider Facility Start: 07-19-2023 End: 07-19-2023 ambulatory PABLO ABREU Not Available Start: 04-13-2023 End: 04-13-2023 ambulatory ISRAEL ESCAMILLA [facility] Start: 04-13-2023 End: 04-13-2023 Office outpatient visit 25 minutes Israel Escamilla MD Work Phone: [facility] Comment on above: Atrial fibrillation and flutter (CMS/HCC); Coronary artery disease involving [place] coronary artery of [place] heart without angina pectoris; Mixed hyperlipidemia; Type 2 diabetes mellitus without complication, without long-term current use of insulin (CMS/HCC); Cerebrovascular accident (CVA), unspecified mechanism (CMS/HCC); Chronic obstructive pulmonary disease, unspecified COPD type (CMS/HCC); Current every day smoker; Coronary artery disease involving [place] heart without angina pectoris, unspecified vessel or lesion type Start: 01-04-2023 Chart Update Pablo Abreu Work Phone: PC-[id number]-APE Jada Meléndez [address] [place] Work Phone: Start: 12-25-2022 ambulatory BRUCE WOLF Facility :[id number] Start: 12-24-2022 End: 12-24-2022 ambulatory Katia Alex Facility:[facility] Start: 12-24-2022 End: 12-24-2022 ambulatory MD Pablo Abreu Work Phone: [facility] Work Phone: Start: 12-24-2022 End: 12-24-2022 Patient encounter procedure MD Pablo Abreu Work Phone: [facility] [place] Work Phone: Start: 11-02-2022 Chart Update Pablo Abreu Work Phone: [facility] 250 DO Work Phone: Start: 10-29-2022 End: 10-29-2022 ambulatory Israel Escamilla Facility:[facility] Start: 10-29-2022 End: 10-29-2022 ambulatory MD Consuelo Johnson Work Phone: [facility] Work Phone: Start: 10-29-2022 End: 10-29-2022 Patient encounter procedure MD Consuelo Johnson Work Phone: [facility] [place] Work Phone: Start: 10-07-2022 Patient encounter procedure Pablo Abreu Work Phone: [facility] 250 DO Work Phone: Start: 10-07-2022 ambulatory Wood Escamilla Facility : Start: 09-30-2022 Office outpatient visit 25 minutes Pablo Abreu Work Phone: -[facility] 250 DO Work Phone: Start: 09-30-2022 ambulatory Israel Escamilla Facility : Start: 09-03-2022 End: 09-03-2022 ambulatory Consuelo Johnson Facility:[facility] Start: 09-03-2022 End: 09-03-2022 Admission to same day surgery center MD Consuelo Johnson Work Phone: [facility] Work Phone: Start: 09-02-2022 Chart Update Pablo Abreu Work Phone: [id number] Jada Meléndez [address] [place] Work Phone: Start: 08-25-2022 Encounter for examination for normal comparison and control in clinical research program Dr. Katia Alex [facility] Start: 08-25-2022 ambulatory [employer] Facility:[facility] Start: 08-25-2022 End: 08-25-2022 Evaluation and management of inpatient Dr. Katia Alex Facility:[facility] Start: 08-20-2022 ambulatory Pablo Abreu Facility:[facility] Start: 08-20-2022 End: 08-20-2022 ambulatory MD Consuelo Johnson Work Phone: [facility] Work Phone: Start: 08-20-2022 End: 08-20-2022 Registered Recurring MD Consuelo Johnson Work Phone: [facility] Work Phone: Start: 08-07-2022 AUDIT Pablo Abreu Work Phone: [id number] Jada Meléndez [address] [place] Work Phone: Start: 08-05-[address] Katia Alex Facility:[id number] Start: 08-03-2022 End: 03-06-2023 ambulatory MD Consuelo Johnson Work Phone: [facility] Work Phone: Start: 08-03-2022 End: 08-03-2022 Registered Recurring MD Consuelo Johnson Work Phone: [facility] Work Phone: Start: 07-31-2022 Patient encounter procedure Pablo Aberu Work Phone: [facility] 250 DO Work Phone: Start: 07-29-2022 End: 07-29-2022 ambulatory Imad Asaad Other [facility] [employer] Other Start: 07-29-2022 [facility] visit new patient Consuelo Johnson [facility] Start: 07-02-2022 End: 07-03-[address] PABLO ABREU Facility:[facility] Start: 06-16-2022 End: 06-16-[address] PABLO ABREU Facility:[facility] Start: 06-12-2022 End: 06-14-2022 ambulatory HECTOR FAN . Facility:[facility] Start: 06-08-[address] Pablo Abreu Facility: Start: 06-08-2022 Patient encounter procedure Pablo Abreu Work Phone: [facility] 250 DO Work Phone: Start: 06-02-2022 End: 06-30-[address] PABLO ABREU Facility:[facility] Start: 05-26-2022 End: 05-27-[address] PABLO ABREU Facility:[facility] Start: 04-10-2022 Office outpatient visit 25 minutes Pablo Abreu Work Phone: [facility] 250 DO Work Phone: Start: 04-10-2022 ambulatory Israel Escamilla Facility : Start: 04-01-2022 End: 04-29-[address] PABLO ABREU Facility:[facility] Start: 03-16-2022 End: 03-30-[address] PABLO ABREU Facility:[facility] Start: 03-02-2022 AUDIT Pablo Abreu Work Phone: [facility] 250 DO Work Phone: Start: 02-25-2022 Rx Renewal Pablo Abreu Work Phone: [facility] 250 DO Work Phone: Start: 02-09-2022 Rx Renewal Pablo Abreu Work Phone: [facility] 600 DO Work Phone: Start: 02-05-2022 End: 02-28-[address] PABLO ABREU Facility:[facility] Start: 01-26-2022 End: 01-26-2022 ambulatory Nataliia Koch Other [employer] Other Start: 01-26-2022 Telephone encounter Nataliia johnson [facility] Start: 12-31-2021 End: 01-28-[address] PABLO ABREU Facility:[facility] Start: 12-03-2021 End: 12-26-[address] PABLO ABREU Facility:[facility] Start: 11-27-2021 End: 11-27-2021 ambulatory Nataliia Koch Other [employer] Other Start: 11-27-2021 Office outpatient ne w 20 minutes Nataliia Koch [facility] Start: 11-13-2021 End: 11-28-[address] PABLO ABREU Facility:[facility] Start: 10-05-2021 End: 10-05-[address] RUDDY CEBALLOS Facility:[facility] Start: 10-02-2021 End: 10-28-[address] PABLO ABREU Facility:[facility] Start: 09-03-2021 End: 09-03-[address] PABLO ABREU Facility:[facility] Start: 08-21-2021 Office outpatient visit 25 minutes Pablo Abreu Work Phone: [facility] 250 DO Work Phone: Start: 08-05-2021 End: 08-28-[address] PABLO ABREU Facility:[facility] Start: 07-09-2021 End: 07-28-[address] PABLO ABREU Facility:[facility] Start: 04-03-2021 Chart Update Pablo Abreu Work Phone: [facility] 600 DO Work Phone: Start: 04-01-2021 Patient encounter procedure Pablo Abreu Work Phone: [facility] [address] [place] Work Phone: Procedures Date Procedure Procedure Detail Performing Clinician Start: 04-13-2023 ECG 12-LEAD ISRAEL ESCAMILLA Start: 04-13-2023 Ecg routine ecg w/least 12 lds w/i&r Israel Escamilla MD Work Phone: Start: 09-03-2022 Esophagogastroduodenoscopy MD Consuelo Johnson Work Phone: Start: 08-25-2022 Echocardiography Pablo Abreu Work Phone: Start: 08-25-2022 Echocardiography Pablo Abreu Work Phone: Start: 07-02-[address] PABLO ABREU Comment on above: Performed By: #### OBSCRN #### [facility] [address] [place] [address] Dr. Tori Mills Start: 06-23-2015 Total colonoscopy Pablo Abreu Work Phone: Atrial appendage aries sure device insertion Pablo Abreu Work Phone: Elbow joint operations Pablo Abreu Work Phone: Procedure on back Pablo borrero Work Phone: Repair of inguinal hernia Debbie Abreu Work Phone: Vasectomy Pablo Abreu Work Phone: Plan of Treatment Date Care Activity Detail Author Start: 10-06-2031 DTaP/Tdap/Td Vaccines (2 - Tdap) DTaP/Tdap/Td Vaccines (2 - Tdap) [facility] Start: 10-21-2023 End: 10-21-2023 Patient encounter procedure 10/21/2023 10:20 AM EDT Office Visit [facility] [address] [place] [address] Israel Escamilla MD [address] [place] [address] [facility] Start: 04-13-2023 End: 04-13-2024 Alanine aminotransferase [Enzymatic activity/volume] in Serum or Plasma by With P-5'-P Alanine Aminotransferase Lab Routine Atrial fibrillation and flutter (CMS/HCC) Expected: 04/13/2023 (Approximate), Expires: 04/13/2024 [facility] Service Area Work Phone: Comment on above: Expected: 04/13/2023 (Approximate), Expi res: 04/13/2024 Start: 04-13-2023 End: 04-13-2024 Aspartate aminotransferase [Enzymatic activity/volume] in Serum or Plasma by With P-5'-P Aspartate Aminotransferase Lab Routine Atrial fibrillation and flutter (CMS/HCC) Expected: 04/13/2023 (Approximate), Expires: 04/13/2024 [facility] Work Phone: Comment on above: Expected: 04/13/2023 (Approximate), Expi res: 04/13/2024 Start: 04-13-2023 End: 04-13-2024 Basic metabolic 2000 panel - Serum or Plasma Basic Metabolic Panel Lab Routine Atrial fibrillation and flutter (CMS/HCC) Expected: 04/13/2023 (Approximate), Expires: 04/13/2024 [facility] Work Phone: Comment on above: Expected: 04/13/2023 (Approximate), Expi res: 04/13/2024 Start: 04-13-2023 End: 04-13-2024 CBC panel - Blood by Automated count CBC Lab Routine Atrial fibrillation and flutter (CMS/HCC) Expected: 04/13/2023 (Approximate), Expires: 04/13/2024 [facility] Work Phone: Comment on above: Expected: 04/13/2023 (Approximate), Expi res: 04/13/2024 Start: 04-13-2023 End: 04-13-2024 Lipid 1996 panel - Serum or Plasma Lipid Panel Lab Routine Atrial fibrillation and flutter (CMS/HCC) Coronary artery disease involving [place] heart without angina pectoris, unspecified vessel or lesion type Expected: 04/13/2023 (Approximate), Expires: 04/13/2024 [facility] Work Phone: Comment on above: Expected: 04/13/2023 (Approximate), Expi res: 04/13/2024 Start: 04-13-2023 FUV, Provider: Israel Escamilla, Status: Pen, Time: 10:40 AM FUV, Provider: Israel Escamilla, Status: Pen, [facility]: 10:40 [facility] Work Phone: Start: 03-26-2023 COVID-19 Vaccine (3 - Booster for Brandon series) COVID-19 Vaccine (3 - Booster for Brandon series) [facility] Start: 10-07-2022 EKG, Provider: MARCO CARABALLO RUG SHAMPOOER 1,[id number], Status: Pen, Time: 3:00 PM EKG, Provider: MARCO CARABALLO RUG SHAMPOOER 1,[id number], Status: Pen, Time: 3:00 PM [facility] Work Phone: Start: 09-30-2022 FUV, Provider: Israel Escamilla, Status: Pen, Time: 11:00 AM FUV, Provider: Israel Escamilla, Status: Pen, Time: 11:00 AM [facility] Work Phone: Start: 09-03-2022 [facility] Start: 06-11-2022 Zoster Vaccines (3 of 3) Zoster Vaccines (3 of 3) [facility] Start: 04-10-2022 FUV, Provider: Israel Escamilla, Status: Pen, Time: 2:10 PM FUV, Provider: Israel Escamilla, Status: Pen, Time: 2:[address] [facility] 250 DO Work Phone: Start: 03-11-2022 FUV, Provider: Israel Escamilla, Status: Pen, Time: 10:00 AM FUV, Provider: Israel Escamilla, Status: Pen, Time: 10:[address] [facility] 250 DO Work Phone: Start: 08-07-2021 FUV, Provider: Israel Escamilla, Status: Pen, Time: 10:40 AM FUV, Provider: Israel Escamilla, Status: Pen, Time: 10:40 AM [facility] Work Phone: Start: 2014 Abdominal aortic aneurysm screening Abdominal Aortic Aneurysm (AAA) Screening [facility] Start: 1968 Urine screening for protein Diabetes: Urine Protein Screening [facility] Start: 10-19-1967 Hepatitis C screening Hepatitis C Screening [facility] Start: 10-19-1959 Diabetic foot examination Diabetes: Foot Exam [facility] Start: 10-19-1959 Glaucoma screening Diabetes: Retinopathy Screening [facility] Start: 1949 Hemoglobin A1c measurement Diabetes: Hemoglobin A1C [facility] Start: 1949 Lipid panel Lipid Panel [facility] Start: 1949 Medicare Annual Wellness Visit Medicare Annual Wellness Visit (AWV) [facility] Start: 1949 Screening for malignant neoplasm of colon [facility] Comprehensive metabo lic 2000 panel - Serum or Plasma [facility] Ferritin [Mass/volum e] in Serum or Plasma [facility] Haptoglobin [Mass/vo lume] in Serum or Plasma [facility] Lactate dehydrogenas e [Enzymatic activity/volume] in Unspecified specimen [facility] Patient Education Hemorrhoids (D C) Diverticulosis (DC) Gastritis (DC) [facility] Work Phone: [facility] Immunizations Immunization Date Immunization Notes Care Provider Lisa vitale 04-16-2022 zoster vaccine, unspecified formulation Israel Escamilla MD Work Phone: [facility] Work Phone: 04-06-2022 zoster vaccine recombinant Pablo Abreu Work Phone: [facility] 250 DO Work Phone: 02-21-2022 Fluzone High-Dose Quadrivalent 0.7 ML Intramuscular Suspension Prefilled Syringe Pablo Goodman Nadmerryr Work Phone: [facility] 250 DO Work Phone: 02-21-2022 influenza, seasonal, injectable Israel Escamilla MD Work Phone: [facility] Work Phone: 02-21-2022 Pfizer COVID-19 Vac Bivalent 30 MCG/0.3ML Intramuscular Suspension Pablo Nurr Work Phone: [facility] 250 DO Work Phone: 10-05-2021 diphtheria, tetanus toxoids and pertussis vaccine Pablo Nurr Work Phone: [facility] 04-23-2021 influenza, seasonal, injectable Israel Escamilla MD Work Phone: [facility] Work Phone: 04-10-2021 Brandon COVID-19 Vac cine 0.5 ML Intramuscular Suspension Pablo Nurr Work Phone: [facility] 250 DO Work Phone: 04-03-2021 Fluad Quadrivalent 0 .5 ML Intramuscular Prefilled Syringe Pablo A Naderer Work Phone: [facility] 250 DO Work Phone: 08-05-2020 Brandon COVID-19 Vac cine 0.5 ML Intramuscular Suspension Pablo Goodman Naderer Work Phone: [facility] 600 DO Work Phone: 02-12-2020 influenza, injectabl e, quadrivalent, preservative free Pablo A Naderer Work Phone: [facility] [address] DO Work Phone: 05-31-2019 influenza, seasonal, injectable Pablo A Naderer Work Phone: [facility] [address] DO Work Phone: 03-06-2019 pneumococcal polysaccharide vaccine, 23 valent Pbalo A Naderer Work Phone: [facility] 03-06-2019 Seasonal trivalent influenza vaccine, adjuvanted, preservative free Pablo A Naderer Work Phone: [facility] [address] DO Work Phone: 03-02-2018 Seasonal trivalent influenza vaccine, adjuvanted, preservative free Pablo A Naderer Work Phone: [facility] [address] DO Work Phone: 02-22-2017 influenza, injectabl e, quadrivalent, preservative free Pablo A Naderer Work Phone: [facility] [address] DO Work Phone: 07-22-2016 influenza, injectabl e, quadrivalent, preservative free Pablo A Naderer Work Phone: [facility] [address] DO Work Phone: 07-22-2016 pneumococcal polysaccharide vaccine, 23 valent Pablo A Naderer Work Phone: [facility] 03-20-2016 influenza, high dose seasonal, preservative-free Pablo Goodman Naderer Work Phone: [facility] [address] DO Work Phone: 03-20-2016 pneumococcal conjuga te vaccine, 13 valent Pablo Goodman Naderer Work Phone: [facility] 02-25-2015 influenza, high dose seasonal, preservative-free Pablo Goodman Naderer Work Phone: [facility] [address] DO Work Phone: 07-09-2014 zoster vaccine, live Pablo Goodman Naderer Work Phone: [facility] 05-31-2014 pneumococcal polysaccharide vaccine, 23 valent Pablo Goodman Naderer Work Phone: [facility] [address] DO Work Phone: 02-22-2013 influenza, seasonal, injectable Pablo Goodman Naderer Work Phone: [facility] 600 DO Work Phone: Payers Date Payer Category Payer Medicare [id number] 2022 Self-pay [id number] 2018 Medicare [id number] 1959 Medicare [id number] 1949 Unknown [id number] 2..84 0.1.271396.3.579.2.593 1949 Unknown [id number] .16.84 0.1.212306.3.579.2.593 1949 Unknown [id number] .16.84 0.1.833235.3.579.2.593 1949 Unknown [id number] .16.84 0.1.598045.3.579.2.593 1949 Unknown [id number] 2.16.84 0.1.056971.3.579.2.593 1949 Unknown [id number] 2.16.84 0.1.504651.3.579.2.593 1949 Unknown [id number] 2.16.84 0.1.412329.3.579.2.593 1949 Unknown [id number] 2.16.84 0.1.125259.3.579.2.593 1949 Unknown [id number] 2.16.84 0.1.836764.3.579.2.593 1949 Unknown [id number] 2.16.84 0.1.936867.3.579.2.593 1949 Unknown [id number] 2.16.84 0.1.712946.3.579.2.593 1949 Unknown [id number] 2.16.84 0.1.003298.3.579.2.593 1949 Unknown [id number] 2.16.84 0.1.823329.3.579.2.593 1949 Unknown [id number] 2.16.84 0.1.786955.3.579.2.593 1949 Unknown [id number] 2.16.84 0.1.144879.3.579.2.593 1949 Unknown [id number] 2.16.84 0.1.499524.3.579.2.593 1949 Unknown [id number] 2.16.84 0.1.717955.3.579.2.593 1949 Unknown [id number] 2.16. 840.1.477186.3.579.2.356 1949 Unknown [id number] 2.16. 840.1.630639.3.579.2.356 1949 Unknown [id number] 2.16. 840.1.264057.3.579.2.356 1949 Unknown [id number] 2.16. 840.1.478101.3.579.2.356 1949 Unknown [id number] 2.16. 840.1.736774.3.579.2.356 1949 Unknown [id number] 2.16. 840.1.560295.3.579.2.356 1949 Unknown [id number] 2.16. 840.1.047388.3.579.2.356 1949 Unknown [id number] 2.16.8 40.1.196769.3.579.2.1068 1949 Unknown [id number] 2.16.8 [id number] 1950 Unknown [id number] 2.16.8 [id number] 1950 Unknown [id number] 2.16.84 [id number] Unknown ANTHEM MEDICARE ADV Unknown [id number] 2.16.8 [id number] Unknown [id number] 2.16.8 [id number] Unknown [id number] 2.16.8 [id number] Unknown [id number] 2.16.8 [id number] Social History Date Type Detail Facility Start: 04-13-2023 No alcohol use No alcohol use -[facility] 250 DO Work Phone: Comment on above: 2 pots coffee daily; 1 ppd; Start: 04-13-2023 Sex Assigned At N [facility] [place] Other Start: 08-03-2022 End: 09-03-2022 Tobacco smoking status NHIS Smoker (finding) [facility] Start: 1950 Sex Assigned At Male F [facility] Start: 04-13-2023 Tobacco smoking status NHIS Smokes tobacco daily [facility] History of tobacco use Cigarette Smoker [facility] Work Phone: Start: 04-13-2023 Tobacco use and exposure Smokeless tobacco non-user [facility] Work Phone: Start: 04-13-2023 Alcohol intake Lifetime non-d kurt (finding) [facility] Work Phone: Start: 1950 [facility] Start: 04-03-2023 End: 04-13-2023 Exposure to SARS-CoV-2 (event) Not sure [facility] Goals Date Patient Goal Desired Activity /State Clinical Notes 11-27-2021 to 04-13-2023 Israel Escamilla MD - 04/13/2023 10:40 AM ESTPatient Instructions Note Date & Type Note Facility 04-13-2023 History of Present illness Narrative Subjective Sen Garcia is a 72 y.o. male Chief Complaint Follow-up HPI Patient is in the office for follow-up for the problems noted below. He is status post watchman's device. He is in sinus rhythm on sotalol with normal QTc interval. He continues to smoke regularly half a pack a day with advanced COPD. He had a fall without injuries and advice was provided to prevent future falls. His vital signs are normal. QTc interval is in the therapeutic range. Assessment/recommendations: 1-paroxysmal atrial fibrillation currently in sinus rhythm, he is on sotalol, he is status post watchman's device August 2022 at [facility] with no complications. 2-active tobacco abuse, education provided to end tobacco use. He expressed no desire to quit smoking 3-COPD that is mild, advised patient to quit smoking altogether 4-history of coronary disease with no prior coronary interventions. Nuclear stress test March 2021 was normal, recommended aggressive risk factors modifications statin with tobacco cessation 5-hyperlipidemia on medical therapy with statin 6-diabetes managed by PCP. 7-overweight, encouraged patient to bring his BMI down with diet and exercise 8-remote history of stroke with no residual deficit 9-orthostatic hypotension on midodrine, blood pressure is normal today. Review of Systems Cardiovascular: Positive for dyspnea on exertion. Respiratory: Positive for shortness of breath. Neurological: Positive for dizziness. All other systems reviewed and are negative. Visit Vitals BP 134/78 (BP Location: Left arm, Patient Position: Sitting) Pulse 71 Ht 1.676 m (5' 6 ) Wt 81.2 kg (179 lb) BMI 28.89 kg/m Smoking Status Every Day BSA 1.94 m EKG done in office today Objective Physical Exam Constitutional: Appearance: Normal appearance. He is normal weight. HENT: Nose: Nose normal. Neck: Vascular: No carotid bruit. Cardiovascular: Rate and Rhythm: Normal rate. Pulses: Normal pulses. Heart sounds: Normal heart sounds. Pulmonary: Effort: Pulmonary effort is normal. Comments: Diminished breath sounds Abdominal: General: Bowel sounds are normal. Palpations: Abdomen is soft. Genitourinary: Rectum: Normal. Musculoskeletal: General: Normal range of motion. Cervical back: Normal range of motion. Right lower leg: No edema. Left lower leg: No edema. Skin: General: Skin is warm and dry. Neurological: General: No focal deficit present. Mental Status: He is alert. Psychiatric: Mood and Affect: Mood normal. Behavior: Behavior normal. Thought Content: Thought content normal. Judgment: Judgment normal. Current Medications Current Outpatient Medications: aspirin 81 mg EC tablet, Take 1 tablet (81 mg) by mouth once daily. Take one tablet by mouth every Wednesday and only, Disp: , Rfl: cyclobenzaprine (Flexeril) 10 mg tablet, Take 1 tablet (10 mg) by mouth once daily as needed for muscle spasms., Disp: , Rfl: docusate sodium (Colace) 100 mg capsule, Take 1 capsule (100 mg) by mouth 2 times a day., Disp: , Rfl: HYDROcodone-acetaminophen ([place]) 7.5-325 mg tablet, Take 1 tablet by mouth every 6 hours if needed., Disp: , Rfl: omeprazole (PriLOSEC) [address] capsule, Take 1 capsule (40 mg) by mouth once daily., Disp: , Rfl: pioglitazone (Actos) 15 mg tablet, Take 1 tablet (15 mg) by mouth once daily., Disp: , Rfl: simvastatin (Zocor) 40 mg tablet, Take 1 tablet (40 mg) by mouth once daily at bedtime., Disp: , Rfl: sotalol (Betapace) 80 mg tablet, Take 1 tablet (80 mg) by mouth every 12 hours., Disp: , Rfl: tamsulosin (Flomax) 0.4 mg 24 hr capsule, Take 1 capsule (0.4 mg) by mouth once daily., Disp: , Rfl: venlafaxine (Effexor) 75 mg tablet, Take 1 tablet (75 mg) by mouth once daily., Disp: , Rfl: zolpidem (Ambien) 10 mg tablet, Take 1 tablet (10 mg) by mouth once daily at bedtime., Disp: , Rfl: Assessment/Plan 1. Atrial fibrillation and flutter (CMS/HCC) ECG 12 Lead Follow Up In Cardiology Alanine Aminotransferase Aspartate Aminotransferase Basic Metabolic Panel CBC Lipid Panel Alanine Aminotransferase Aspartate Aminotransferase Basic Metabolic Panel CBC Lipid Panel 2. Coronary artery disease involving [place] coronary artery of [place] heart without angina pectoris 3. Mixed hyperlipidemia 4. Type 2 diabetes mellitus without complication, without long-term current use of insulin (CMS/HCC) 5. Cerebrovascular accident (CVA), unspecified mechanism (CMS/HCC) 6. Chronic obstructive pulmonary disease, unspecified COPD type (CMS/HCC) 7. Current every day smoker 8. Coronary artery disease involving [place] heart without angina pectoris, unspecified vessel or lesion type Lipid Panel Lipid Panel documented in this encounter [facility] Work Phone: 04-13-2023 Instructions Sloane Mabry LPN - 04/13/2023 10:40 AM EST Please bring all medicines, vitamins, and herbal supplements with you when you come to the office. Prescriptions will not be filled unless you are compliant with your follow up appointments or have a follow up appointment scheduled as per instruction of your physician. Refills should be requested at the time of your visit. documented in this encounter [facility] Work Phone: 08-25-2022 Note Send Summary: Discharge Summary Providers: Provider RoleProvider Name AttendingKatia Alex Note Recipients: Israel Escamilla MD - [id number] [preferred] Pablo Abreu MD - [id number] [] Discharge: Summary: Admission Date: .25-Aug-2022 08:32:00 Discharge Date: 25-Aug-2022 Attending Physician at Discharge: Katia Alex Admission Reason: LAAO Final Discharge Diagnoses: Presence of Watchman left atrial appendage closure device Procedures: Watchman left atrial appendage closure Condition at Discharge: Satisfactory Disposition at Discharge: .Home Physical Exam: Constitutional: Well developed, awake/alert/oriented x3, no distress, cooperative Eyes: PERRL, EOMI, clear sclera ENMT: mucous membranes moist Head/Neck: Neck supple, No JVD Respiratory/Thorax: Good chest expansion, thorax symmetric, lung sounds clear but with diminished bases Cardiovascular: Regular rate and rhythm, no murmurs, normal S1 and S2 Gastrointestinal: Nondistended, soft, non-tender, no rebound tenderness or guarding, no masses palpable, no organomegaly, +BS Extremities: trace BLE edema, no cyanosis Neurological: alert and oriented x3, intact senses, motor, response and reflexes, normal strength Psychological: Appropriate mood and behavior Skin: Warm and dry, intact. Hospital Course: PCP: Dr. Abreu Chief Wellness Officer: Dr. Escamilla I was asked by Dr. Escamilla to evaluate this patient in consultation for evaluation of left atrial appendage closure. Sen Garcia is a 71-year-old diabetic male with coronary artery disease, orthostatic hypotension, COPD, history of CVA and paroxysmal atrial fibrillation. Patient has been managed with a rhythm control strategy using sotalol and anticoagulated with warfarin. He has hyperdynamic left ventricular systolic function based on transthoracic echocardiogram performed May 2022 with LVEF greater than 65%. He has no history of significant valvular heart disease. The patient stroke was in 2000 and as best I can tell he received thrombolysis. He has some residual left-sided both upper and lower extremity weakness. The patient has had a number of falls both mechanical falls and falls related to his orthostatic hypotension. On one occasion, the patient fell and hit the corner of his trailer resulting in loss of consciousness and head injury. However he did not seek emergency attention on this occasion. Patient has had labile INRs and recent lower GI bleed in May 2022 presenting with a hemoglobin of 7.7 requiring 2 units of packed red blood cells transfusion. He was also administered vitamin K for an INR 3.3. He was seen in consultation by general surgery. Endoscopy was performed both upper and lower. However etiology of his bleed is unknown. Date of admission June 12, 2022. Date of discharge June 14, 2022. Capsule endoscopy is being discussed. Since his discharge, the patient is not had any recurrent hematochezia. He also denies any melena, hematemesis or hemoptysis. He has been taken off of anticoagulation but remains on sotalol. Given the patient's significant GI bleed and anemia requiring transfusion as well as his history of orthostasis and falls, he is referred for consideration of left atrial appendage closure for stroke risk reduction. This is a 71-year-old male with the aforementioned medical history including COPD, prior CVA, and paroxysmal atrial fibrillation. Patient has a history of labile INR, and recent admission with significant GI bleeding necessitating discontinuation of anticoagulant therapy. In addition the patient has orthostasis and multiple falls resulting in bodily injury. For all of these reasons, left atrial appendage closure is very reasonable. His CHADS-VASC score is 4 and HAS-BLED score is 4. He is at increased risk of both bleeding and stroke. Again, he is a reasonable candidate for consideration of left atrial appendage occluder placement. 08/25/2022 patient underwent successful Transcatheter Left Atrial Appendage Closure with 20 mm Watchman FLX device Recapture was not required. Compression rate was 16%. 2 sheathes were inserted in RFV, and hemostasis was achieved with Vascades x2. Follow up TTE showed no evidence of new pericardial effusion or device-related thrombus. Patient will be discharged with DAPT, followed by aspirin for life. CTA at 4 months is required to reassess device positioning and rule out any device leak or device related thrombus. Thank you, Dr. Escamilla, for this consultation and for allowing me to participate in the care of this patient. Discharge Information: and Continuing Care: Lab Results - Pending: None Radiology Results - Pending: None Discharge Instructions: Activity: You are advised to go directly home from the hospital DO NOT lift anything heavier than 10 pounds for one week, this allows for proper healing of the groin No e (more content not included)... [facility] 08-25-2022 Note History & Physical R eviewed: I have reviewed the History and Physical dated: 25-Aug-2022 History and Physical reviewed and relevant findings noted. Patient examined to review pertinent physical findings.: No significant changes Home Medications Reviewed: no changes noted Allergies Reviewed: no changes noted Airway/Sedation Assessment: Emotional Statuscalm Neurologicalert & oriented x 3 Respiratoryclear to auscultation Cardiovascularrhythm & rate regular GI/GUsoft, nontender Pulsespresent: Pedal Left, Pedal Right, Radial Left, Radial Right Mouth Opening OKyes Neck Flexibility OKyes Loose Teethno Oropharyngeal ClassificationClass II ASA PS ClassificationASA II ERAS (Enhanced Recovery After Surgery): ERAS Patient: no Consent: COVID-19 Consent: COVID-19 Risk ConsentSurgeon has reviewed burns risks related to the risk of kedar COVID-19 and if they contract COVID-19 what the risks are. Attestation: Note Completion: I am a: Resident/Fellow Attending AttestationI saw and evaluated the patient. I personally obtained the burns and critical portions of the history and physical exam or was physically present for burns and critical portions performed by the resident/fellow. I reviewed the resident/fellows documentation and discussed the patient with the resident/fellow. I agree with the resident/fellows medical decision making as documented in the note. I personally evaluated the patient [id number] Electronic Signatures: Katia Alex) (Signed 25-Aug-2022 14:22) Authored: Note Completion Co-Signer: History & Physical Reviewed, Airway/Sedation, ERAS, Consent, Note Completion Eloisa Fallon (Fellow)) (Signed 25-Aug-2022 12:33) Authored: History & Physical Reviewed, Airway/Sedation, ERAS, Consent, Note Completion Last Updated: 25-Aug-2022 14:22 by Katia Alex) [facility] 08-25-2022 Note Clinical Note - Phar krysta v2: Education: Document TopicMedication Education MedicationMeds to Beds: Patient accepts Meds to Beds service at discharge, please send prescriptions to [facility]. Sources used to confirm home medication list: - Patient interview (provided written home med list) - AEMR med list vs. Fill history (at [facility]) - OARRS ([place] 7.5-325mg filled 07/30/22 #120 x 30DS; Flexeril 10mg filled 07/29/22 #270 x 90DS; Ambien 10mg filled 07/03/22 #90 x 90DS) Aspirin 81mg daily: DISCONTINUED at end of May due to bleeding Statin: Simvastatin 40 mg daily P2Y12 inhibitor: not prescribed Anticoagulant: warfarin DISCONTINUED at end of May due to bleeding Medication reconciliation complete Please reach out via [employer] for questions. Or if no response, please call [employer] or [employer]. [place]nee [place], PGY1 [employer] [facility] Is This Intervention Medication Reconciliation Relatedyes Time [id number] minutes Additional NotesHome Medications Review Status for Reconciliation: Complete Med Status: Patient Currently Takes Medications Drug Name: pioglitazone 15 mg oral tablet Instructions: 1 tab(s) orally once a day Drug Name: docusate sodium 100 mg oral capsule Instructions: 1 cap(s) orally once a day, As Needed Drug Name: cyclobenzaprine 10 mg oral tablet Instructions: 1 tab(s) orally 3 times a day, As Needed Drug Name: tamsulosin 0.4 mg oral capsule Instructions: 2 cap(s) orally once a day Drug Name: hydrocodone-acetaminophen 7.5 mg-325 mg oral tablet Instructions: 1 tab(s) orally every 6 hours, As Needed Drug Name: omeprazole 40 mg oral delayed release capsule Instructions: 1 cap(s) orally once a day Drug Name: simvastatin 40 mg oral tablet Instructions: 1 tab(s) orally once a day (at bedtime) Drug Name: zolpidem 10 mg oral tablet Instructions: 1 tab(s) orally once a day (at bedtime) Drug Name: ferrous sulfate 325 mg (65 mg elemental iron) oral tablet Instructions: 1 tab(s) orally 2 times a day Drug Name: venlafaxine 75 mg oral capsule, extended release Instructions: 1 cap(s) orally once a day Allergy: Allergies Summary No Known Allergies Electronic Signatures: [employer] [place] (PharmD) (Signed 25-Aug-2022 10:42) Authored: Education, Allergy Joanne Lim ([facility]) (Signed 25-Aug-2022 14:07) Co-Signer: Education, Allergy Last Updated: 25-Aug-2022 14:07 by Joanne Lim ([facility]) [facility] 08-11-2022 Consult note Note Date/Time August 09, 2022 1:37pm [facility] [place] [address] Hem/Onc Consult Note - OP Signed Patient: Sen Garcia MR#: [id number] : 1950 Acct:[id number] Age/Sex: 71 / M Type: REG RCR Copies to: MD Pablo Garcia MD~ HPI Date/Time of Service: Date of Service: 08/03/2022 Time of Service: 14:36 Referring Provider/PCP: Referring Provider: Consuelo Johnson MD PCP: Pablo Abreu MD - History of Present Illness Reason for Consultation: Normocytic anemia; history of recent GI bleed with severe anemia Chief Complaint: Patient is here today [facility]: Dear Dr. Johnson, I have seen your patient in consultation and would like to thank you for the courtesy of your referral. As you know, Mr. Sen Garcia is a 71-year-old gentleman with a past medical history of: Hypertension, diabetes mellitus, COPD, obesity, CVA, PVD, CAD?status post [place], BPH, chronic back pain (status post L5 lumbar laminectomy), tobacco abuse, atrial flutter on chronic anticoagulation with Coumadin. The patient has been referred to our outpatient hematology clinic for evaluationand further management of severe, normocytic anemia and pancytopenia - following a significant GI bleeding event in May 2022. As noted above, the patient has been on both aspirin and Coumadin for approximately 20 years following his CVA. He has never had a significant bleeding episode up until recently. The patient reports being in his usual state of health until around early to mid May 2022 when he first noted some blood tinged stool and then reported sudden significant GI bleed; which according to the patient and his son; was fairly significant as he was suddenly passing a large amount of blood with clots. He was admitted to outside hospital - [facility] and had several PRBC transfusions. He underwent EGD and colonoscopy by Dr. Obrien on 06/16/2022; which was essentially negative for any obvious source of bleeding andhe was recommended for follow up with wireless capsule endoscopy. Labs from [facility] dated: 06/16/2022 reveal a WBC count -5.6; hemoglobin 8.1; hematocrit 24.6; platelet count 114,000. PT 11.4; INR?1.08. BUN 12; creatinine0.71 and GFR greater than 60. Upon lab recheck dated 07/02/2022 his WBC count was5.8; hemoglobin had improved to 11.3; hematocrit 33.5; platelet count 175,000; mild elevation of RDW with normocytic indices and normal renal and hepatic function. CT abdomen/pelvis dated 06/16/2022 at the [facility] revealed no acute findings. He has been off all anticoagulation since May 2022 and is scheduled to follow-up with cardiology regarding continuation of anticoagulation on 09/03/2022. Clinically, he feels poor. He reports feeling significantly cold and fatigued; no energy. Chronic shortness of breath with exertion, denies cough, chest pain, palpitations or hemoptysis. No abdominal pain. Denies any significant weight loss; night sweats or bone pain. He reports no further obvious GI bleeding or blood loss. [facility] - Medical History Medical History: Medical History (Last Reviewed 08/03/22 @ 15:01 by Lauren Horvath) BPH (benign prostatic hyperplasia) CAD (coronary artery disease) Chronic anticoagulation Chronic back pain COPD (chronic obstructive pulmonary disease) CVA (cerebral vascular accident) Depression Diabetes GERD (gastroesophageal reflux disease) Hyperlipidemia Myocardial infarction Tobacco abuse - Surgical History Surgical History: Surgical History (Last Reviewed 08/03/22 @ 15:01 by Lauren Horvath) H/O removal of cyst History of lumbar laminectomy History of surgery on arm multiple arm/elbow surgeries - Family History Family History: Family History (Last Reviewed 08/03/22 @ 15:01 by Lauren Horvath) Mother Lung cancer Brother Lung cancer Father Heart disease - Social History Smoking Status: Current every day smoker Tobacco Type: cigarettes Substance Use Type: None Home Medications & Allergies Allergies No Known Allergies Allergy (Verified 08/03/22 15:00) Home Medications omeprazole 40 mg capsule,delayed release 40 mg PO DAILY 02/14/21 [History Confirmed 08/03/22] pioglitazone 15 mg tablet 15 mg PO DAILY 02/14/21 [History Confirmed 08/03/22] simvastatin 40 mg tablet (Zocor) 40 mg PO QHS 02/14/21 [History Confirmed 08/03/22] tamsulosin 0.4 mg capsule 0.8 mg PO DAILY 02/14/21 [History Confirmed 08/03/22] venlafaxine 75 mg capsule,extended release 24 hr 75 mg PO DAILY 02/14/21 [History Confirmed 08/03/22] warfarin 2 mg tablet 5 mg PO DIRECTED 02/14/21 [History Confirmed 08/03/22] zolpidem 10 mg tablet 10 mg PO DAILY 02/14/21 [History Confirmed 08/03/22] cyclobenzaprine 10 mg tablet 10 mg PO HS 08/03/22 [History Confirmed 08/03/22] docusate sodium 100 mg capsule (Colace) 100 mg PO BID 08/03/22 [History Confirmed 08/03/22] hydrocodone 7.5 mg-acetaminophen 325 mg tablet 1 tab PO Q6H PRN Pain 08/03/22 [History Confirmed 08/03/22] sotalol 80 mg tablet (Betapace) 80 mg PO BID 08/03/22 [History Confirmed 08/03/22] zolpidem 5 mg tablet (Ambien) 5 mg PO QHS PRN Sleep 08/03/22 [History Confirmed 08/03/22] Subjective Data - Diagnosis DIAGNOSIS: 1.) GI bleed in the setting of chronic anticoagulation 2.) Blood loss anemia Subjective/ROS - Narrative: As per the HPI, otherwise 10 point review of systems is negative. Objective - Resuscitation Status Resuscitation Status: Full Code - Height/Weight Height/Weight: Height 5 ft 7 in Weight 83.4 kg Physical Exam Narrative: PHYSICAL EXAMINATION: GENERAL: Alert, generalized pallor, appears older than stated age; no acute distress. PAIN: 0 out of 10 ECOG PERFORMANCE STATUS: 1 HEENT: Head is normocephalic, atraumatic. No scleral icterus. Oral mucosa is pink and moist. No lesions or exudate. NECK: Supple without adenopathy or thyromegaly. HEART: Regular rate and rhythm. S1 and S2 normal. LUNGS: Lungs diminished to auscultation bilaterally. No wheezes or crackles. ABDOMEN: Abdomen soft, nontender, nondistended. No hepatosplenomegaly. Bowel sounds present x4 quadrants. BACK: Full ROM; No CVA tenderness. EXTREMITIES: Warm and dry. No edema, clubbing or cyanosis. NEUROLOGICAL: No focal or sensory deficits. The patient is alert and oriented x3 - ECOG Performance Status ECOG Score: 1 Results - Labs Labs: Diagram of Most Recent CBC and CMP 08/04/22 12:55 08/04/22 12:55 Labs - Last 7 Days 08/04/22 12:55: Haptoglobin 96 08/04/22 12:55: PHA Creatinine Clear 86.20, Sodium 143, Potassium 4.4, Chloride 104, Carbon Dioxide 29.9, Anion Gap 13.5, BUN 11, Creatinine 0.72, Est GFR (CKD-EPI) > 60.0, Glucose 108, Calcium 9.6, Iron 75, TIBC 402, Iron Saturation 18.7 L, Transferrin 287, Ferritin 29.7, Total Bilirubin 0.4, AST 17, ALT 12, Alkaline Phosphatase 52, Lactate Dehydrogenase 172, Total Protein 6.7, Albumin 4.5, Globulin 2.2, Albumin/Globulin Ratio 2.0, Vitamin B12 372, Folate > 24.8 08/04/22 12:55: Corrected WBC 5.7, Uncorrected WBC Count 5.7, RBC 4.82, Hgb 14.6, Hct 44.2, MCV 91.8, MCH 30.4, MCHC 33.1, RDW 15.3 H, Plt Count 121 L, MPV 9.8, Neut % (Auto) 59.9, Lymph % (Auto) 29.4, [place] % (Auto) 9.1, Eos % (Auto) 1.0, Baso % (Auto) 0.6, Nucleat RBC Rel Count 0.2, Neut # (Auto) 3.4, Lymph # (Auto) 1.7, [place] # (Auto) 0.5, Eos # (Auto) 0.1, Baso # (Auto) 0.0, Absolute Retic 0.045, Percent Retic 0.9 Assessment and Plan (1) Anemia due to blood loss The patient has been referred to our outpatient hematology clinic for evaluationand further management of severe, normocytic anemia - following a significant GIbleeding event in May 2022. As noted above, the patient has been on both aspirin and Coumadin for approximately 20 years following his CVA. He has neverhad a significant bleeding episode up until recently. The patient reports being in his usual state of health until around early to mid May 2022 when he first noted some blood tinged stool and then reported sudden significant GI bleed; which according to the patient and his son; was fairly significant as he was suddenly passing a large amount of blood with clots. He was admitted to outside hospital - [facility] and had several PRBC transfusions. Labs from [facility] dated: 06/16/2022 reveal a WBC count -5.6; hemoglobin 8.1; hematocrit 24.6; platelet count 114,000. PT 11.4; INR?1.08. BUN 12; creatinine0.71 and GFR greater than 60. Upon lab recheck dated 07/02/2022 his WBC count was 5.8; hemoglobin had improved to 11.3; hematocrit 33.5; platelet count 175,000; mild elevation of RDW with normocytic indices and normal renal and hepatic function. The patient does not have any other abnormalities on CBC or leukopenia. Plan: Recheck CBC, CMP, Retic count, LDH and haptoglobin. Will also check iron studies, ferritin, and B12/folate levels. Will follow up labs with patient in ~ 2 weeks and if iron is indicated we may arrange for oral supplementation or intravenous iron. (2) GI bleed Acute presentation of significant GI bleed to [facility] in May 2022;in the setting of chronic anticoagulation with Coumadin + ASA. During his inpatient admission at [facility]; he underwent EGD and colonoscopy by Dr. Obrien on 06/16/2022; which was essentially negative for any obvious source of bleeding and he was recommended for follow up with wireless capsule endoscopy. CT abdomen/pelvis dated 06/16/2022 at the [facility] revealed no acute findings. The patient has since seen Dr. Johnson at [facility] G[facility] and is in the process of arranging for push enteroscopy and colonoscopy; if negative plan to proceed with wireless capsule endoscopy. Of note, He has been off all anticoagulation since May 2022 and is scheduledto follow-up with cardiology regarding continuation of anticoagulation on 09/03/2022. (3) Thrombocytopenia Mild, chronic thrombocytopenia without bleeding. 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 Dictated By: Mellissa Padilla APRN DD/ [id number] Signed By: <Electronically signed by MISA Padilla> 08/11/22 1103 [facility] [employer] Work Phone: [phone]) 938-766903-01-2023 Evaluation note* Encounter Date Diagnosis Assessment Notes Treatment Notes Treatment Clinical Notes Jul, Acute GI bleeding (ICD-10 - K92.2) Pt to follow up with hotel operations manager-pt has appt on 09-30-22 Jul, Anemia (ICD-10 - D64.9) Will arrange EGD with push enteroscopy and colonoscopy-if negative will proceed with capsule endoscopy Jul, Rectal bleeding (ICD-10 - K62.5) [employer] Other 06-30-2022 Evaluation note* Encounter Date Diagnosis Assessment Notes Treatment Notes Treatment Clinical Notes Oct, Infection of mouth (ICD-10 - K12.2) Take medication as directed. Complete all doses. Sent referral to oral surgeon since it is requirement to be seen [employer] Other evaluxxray noteNo InformationNort Camalize SL Other evalubzzjx noteNo assessment information available [facility] [employer] Work Phone: evaluoqnwr note* Diagnosis Onset Date Resolution Status GI bleed acute Thrombocytopenia acute Anemia due to blood loss chr onic [facility] [employer] Work Phone: Evaluation note* Diagnosis Atrial fibrillation and flutter (CMS/HCC) Coronary artery disease involving [place] heart without angina pectoris, unspecified vessel or lesion type Mixed hyperlipidemia Type 2 diabetes mellitus without complication, without long-term current use of insulin (CMS/HCC) Cerebrovascular accident (CVA), unspecified mechanism (CMS/HCC) Chronic obstructive pulmonary disease, unspecified COPD type (CMS/HCC) Current every day smoker documented in this encounter [facility] Work Phone: Hismblq general Narrative - Reported* Type Description Date Medical History heart attack Medical History stroke Medical History depression [employer] Other History general Narrative - Reported* Type Description Date Medical History heart attack Medical History stroke Medical History depression Surgical History low back Surgical History lt elbow Surgical History rt elbow Hospitalization History see above Hospitalization History stroke Hospitalization History [facility] [employer] Other Reason for referral (narrative)* Consultation (Routine) - Authorized Specialty Diagnoses / Procedures Referred By Contac t Referred To Contact Cardiology Diagnoses Atrial fibrillation and flutter (CMS/HCC) Procedures Follow Up In Cardiology Israel Escamilla MD [address] [place] [id number] Israel Escamilla MD [address] [place] [address], [address] [address] Referral ID Status Reason Start Date Expiration Date V isits Requested Visits Authorized [id number] Authorized 04/13/2023 04/12/2024 1 1 * Cardiovascular (Routine) - Pending Review Specialty Diagnoses / Procedures Referred By Contac t Referred To Contact Diagnoses Atrial fibrillation and flutter (CMS/HCC) Procedures ECG 12 Lead Israel Escamilla MD [address] [place] [address], [address] [address] Referral ID Status Reason Start Date Expiration Date V isits Requested Visits Authorized [id number] Pending Review 04/13/2023 04/12/2024 1 1 [facility] Work Phone: Chief Complaint * SEN GARCIA is being seen for a 6 month follow-up of. * Patient is in the office for follow-up for the problems noted below. Since he was last seen in the office back in January 2021 he has not had any events leading to ER visits or admission to the hospital with no indication of breakthrough atrial fibrillation on medical therapy. His EKG confirmed sinus rhythm and QTc interval in the therapeutic range. He is chronically anticoagulated and has had no trouble with anticoagulation. The patient continues to smoke something, he was reminded that he should stop smoking. He has not had any lab data since last visit and he is scheduled to have hattie reina coming up soon which I requested copy sent to me. His diabetes seems to be under control. * Assessment/recommendations: * 1 paroxysmal atrial fibrillation currently in sinus rhythm on sotalol and long-term anticoagulationwith Coumadin managed by his PCP in [place] * 2 active tobacco abuse, education provided to end tobacco use. * 3 COPD that is mild, advised patient to quit smoking altogether * 4 history of coronary disease with no prior coronary interventions. Nuclear stress test March 2021 was normal, recommended aggressive risk factors modifications statin with tobacco cessation * 5 hyperlipidemia on medical therapy with statin, lipids will be done in next few weeks through PCP * 6 diabetes managed by PCP. A1c is being followed closely * 7 overweight, encouraged patient to bring his BMI down with diet and exercise * 8 remote history of stroke with no residual deficit * SEN GARCIA is being seen for a 6 month follow-up of. * Patient is in the office for follow-up for the problems noted below. He reports no symptoms of palpitations chest pain orthopnea PND or lower extremity edema. His medical therapy was reviewed with him. He is on sotalol 80 mg twice daily EKG revealed normal sinus rhythm and normal intervals. He is due for lipid profile which is ordered. He continues to smoke something that I advised him to get andas soon as possible. He does have dyspnea on exertion related to COPD. His weight remains above target. * Assessment/recommendations: * 1 paroxysmal atrial fibrillation currently in sinus rhythm on sotalol and long-term anticoagulationwith Coumadin managed by his PCP in [place] * 2 active tobacco abuse, education provided to end tobacco use. * 3 COPD that is mild, advised patient to quit smoking altogether * 4 history of coronary disease with no prior coronary interventions. Nuclear stress test March 2021 was normal, recommended aggressive risk factors modifications statin with tobacco cessation, aspirin dose will be reduced to twice weekly since he is on full dose Coumadin * 5 hyperlipidemia on medical therapy with statin, lipids will be done in next few weeks through PCP * 6 diabetes managed by PCP. A1c is being followed closely * 7 overweight, encouraged patient to bring his BMI down with diet and exercise * 8 remote history of stroke with no residual deficit * SEN KRISTINE is being seen for a 6 month follow-up of. * Patient is in the office for follow after having a watchman's device implanted at [facility] 2022 with no complications. When his medication were reviewed he was not taking sotalol for no known reason. He will be placed back on the sotalol 80 mg twice daily which she has tolerated previously with no QT prolongation or arrhythmias. He continues to smoke and has no desire to quit smoking. His EKG today confirmed normal sinus rhythm. I notice he was taking only aspirin where he should be taking also Plavix after the watchman's device for 6 months. Will prescribe Plavix for him. He has had no bleeding complications recently. He reports no angina orthopnea PND or lower extremity edema. Lab data and other notes from his visit with Dr. Alex were reviewed by myself. * Assessment/recommendations: * 1 paroxysmal atrial fibrillation currently in sinus rhythm, he is supposed to be taking sotalol which she has not and I will place him back on what he has tolerated previously safely at 80 mg twice daily we will do EKG next week for confirmation of no QT prolongation. Patient is status post watchman's device implantation 2022. He is not on anticoagulants but he will be on aspirin Plavix for 6 months after which Plavix will be discontinued * 2 active tobacco abuse, education provided to end tobacco use. He expressed no desire to quit smoking * 3 COPD that is mild, advised patient to quit smoking altogether * 4 history of coronary disease with no prior coronary interventions. Nuclear stress test March 2021 was normal, recommended aggressive risk factors modifications statin with tobacco cessation * 5 hyperlipidemia on medical therapy with statin * 6 diabetes managed by PCP. * 7 overweight, encouraged patient to bring his BMI down with diet and exercise * 8 remote history of stroke with no residual deficit * 9 orthostatic hypotension on midodrine, blood pressure is normal today. Patient here for ekg ordered by Dr. Israel Escamilla MD due to atrial fibrillation. Dr. Lang French MD in suite. They are here due to Sotal 80mg starting at last ov. Madication updated via personal list. No complaints noted at this time. EKG reviewed by Jeannie Webb RN prior to discharge. Dr. Israel Escamilla MD for review. Family History No Family History Records FoundUnknown Family Member Name Dates Details Family history of arterioscl erotic cardiovascular disease: Father(V17.49, Z82.49) Status:Active FH: CABG (coronary artery by pass surgery): Sister(V17.3, Z82.49) Status:Active Family history of lung cance r: Mother(V16.1, Z80.1) Status:Active Unknown Family Member Name Dates Details Family history of lung cance r: Mother(V16.1, Z80.1) Status:Active FH: CABG (coronary artery by pass surgery): Sister(V17.3, Z82.49) Status:Active Family history of arterioscl erotic cardiovascular disease: Father(V17.49, Z82.49) Status:Active Unknown Family Member Name Dates Details Family history of lung cance r: Mother(V16.1, Z80.1) Status:Active FH: CABG (coronary artery by pass surgery): Sister(V17.3, Z82.49) Status:Active Family history of arterioscl erotic cardiovascular disease: Father(V17.49, Z82.49) Status:Active Unknown Family Member Name Dates Details Family history of arterioscl erotic cardiovascular disease: Father(V17.49, Z82.49) Status:Active FH: CABG (coronary artery by pass surgery): Sister(V17.3, Z82.49) Status:Active Family history of lung cance r: Mother(V16.1, Z80.1) Status:Active Unknown Family Member Name Dates Details Family history of arterioscl erotic cardiovascular disease: Father(V17.49, Z82.49) Status:Active FH: CABG (coronary artery by pass surgery): Sister(V17.3, Z82.49) Status:Active Family history of lung cance r: Mother(V16.1, Z80.1) Status:Active Unknown Family Member Name Dates Details Family history of arterioscl erotic cardiovascular disease: Father(V17.49, Z82.49) Status:Active FH: CABG (coronary artery by pass surgery): Sister(V17.3, Z82.49) Status:Active Family history of lung cance r: Mother(V16.1, Z80.1) Status:Active Unknown Family Member Name Dates Details Family history of arterioscl erotic cardiovascular disease: Father(V17.49, Z82.49) Status:Active FH: CABG (coronary artery by pass surgery): Sister(V17.3, Z82.49) Status:Active Family history of lung cance r: Mother(V16.1, Z80.1) Status:Active Relationship Condition Age at Onset Recorded Date/T wendy Not Specified Malignant neoplasm of lung Unknown brother Malignant neoplasm of lung Unknown father Heart disease Unknown Unknown Family Member Name Dates Details Family history of arterioscl erotic cardiovascular disease: Father(V17.49, Z82.49) Status:Active FH: CABG (coronary artery by pass surgery): Sister(V17.3, Z82.49) Status:Active Family history of lung cance r: Mother(V16.1, Z80.1) Status:Active Unknown Family Member Name Dates Details Family history of arterioscl erotic cardiovascular disease: Father(V17.49, Z82.49) Status:Active FH: CABG (coronary artery by pass surgery): Sister(V17.3, Z82.49) Status:Active Family history of lung cance r: Mother(V16.1, Z80.1) Status:Active Unknown Family Member Name Dates Details Family history of arterioscl erotic cardiovascular disease: Father(V17.49, Z82.49) Status:Active FH: CABG (coronary artery by pass surgery): Sister(V17.3, Z82.49) Status:Active Family history of lung cance r: Mother(V16.1, Z80.1) Status:Active Unknown Family Member Name Dates Details Family history of arterioscl erotic cardiovascular disease: Father(V17.49, Z82.49) Status:Active FH: CABG (coronary artery by pass surgery): Sister(V17.3, Z82.49) Status:Active Family history of lung cance r: Mother(V16.1, Z80.1) Status:Active Unknown Family Member Name Dates Details Family history of arterioscl erotic cardiovascular disease: Father(V17.49, Z82.49) Status:Active FH: CABG (coronary artery by pass surgery): Sister(V17.3, Z82.49) Status:Active Family history of lung cance r: Mother(V16.1, Z80.1) Status:Active Unknown Family Member Name Dates Details Family history of arterioscl erotic cardiovascular disease: Father(V17.49, Z82.49) Status:Active FH: CABG (coronary artery by pass surgery): Sister(V17.3, Z82.49) Status:Active Family history of lung cance r: Mother(V16.1, Z80.1) Status:Active Reason for Referral Reason *FU 12/05 Patient has what he thinks is tooth fragment in gumline causing inflammation - [facility] Diagnosis 1 Infection of mouth ( K12.2) Referral Organization [facility] Family Medicin e Derik Referring Provider First Name Nataliia Referring Provider Last Name Zee Referring Provider Specialty Nurse Pracelizabeth eugene Referred Organization [facility] Referred Address [address] [place],[address] Referred Provider Specialty Oral Surgery Referral Priority Routine General Notes Sadaf Chacon 022 02:09:22 PM >Received and fax referral today to [facility] in [facility] Clinical Notes Office [phone] Reason 08/03/22 @ 2:30 Pl ease schedule consult to evaluate and treat. Diagnosis 1 Anemia (D64.9) Referral Organization [facility] Referring Provider First Name Imad Referring Provider Last Name Asaad Referring Provider Specialty Gastroenter ology Referred Organization [facility] Referred Provider Swati Baum [place]erred Address [address] [facility] [place] Referred Provider Specialty Hematology/O ncology Referral Priority Routine Referral Appointment Date 2022-08-03 General Notes Lauren Fernando 023 11:46:40 AM >RECEIVED TODAY & SENT Lauren Fernando 08/06/2022 11:25:15 AM >SENT 1ST LETTER Lauren Fernando 08/14/2022 09:43:00 AM >CONSULT WAS CL AND DR JOHNSON REVIEWED IT Summary Purpose Advance Directives No Advanced Directives Records Found Advance Directive Response Recorded Date/ Time Advance Directives No January 4:06am Advance Directive Response Recorded Date/ Time Advance Directives No January 5:06am Chief Complaint and Reason for Visit Chief Complaint Anemia Chief Complaint Anemia Reason for Visit GI bleed Thrombocytopenia Anemia due to blood loss Chief Complaint Anemia anemia, rectal bleeding E11.9 E78.5 Z79.899 I48.0 Reason for Visit GI bleed Thrombocytopenia Anemia due to blood loss Chief Complaint E11.9 E78.5 Z79.899 I48.0 i48.0 Additional Source Comments REASON FOR VISIT (unrecogniz ed section and content) Reason Comments Follow-up 6m Specialty Diagnoses / Procedures Referred By Contac t Referred To Contact Diagnoses Atrial fibrillation and flutter (CMS/[facility]) Procedures ECG 12 Lead Israel Escamilla MD [address] [facility], [address] [address] Referral ID Status Reason Start Date Expiration Date V isits Requested Visits Authorized [id number] Pending Review 04/13/2023 04/12/2024 1 1 (unrecognized sect ion and content) No Status Records FoundNo Status Records FoundNo Status Records FoundNo Status Records FoundNo Status Records FoundNo Status Records FoundNo Status Records Found INFORMATION SOURCE (unrecogn ized section and content) DATE CREATED AUTHOR 07/05/2022 [facility] DATE CREATED AUTHOR AUTHOR'S ORGANIZ ATION 10/03/2022 [employer] DATE CREATED AUTHOR AUTHOR'S ORGANIZ ATION 10/10/2022 [facility] DATE CREATED AUTHOR AUTHOR'S ORGANIZ ATION 01/07/2023 [facility] DATE CREATED AUTHOR AUTHOR'S ORGANIZ ATION 04/15/2023 [facility] DATE CREATED AUTHOR AUTHOR'S ORGANIZ ATION 07/09/2023 [facility] DATE CREATED AUTHOR AUTHOR'S ORGANIZ ATION 07/20/2023 [facility] Care Teams (unrecognized sec tion and content) Team Status: Active Member Role Status Dates Pablo Abreu MD Primary Care Provider Active Team Status: Inactive Member Role Status Dates Pablo Abreu MD Primary Care Provider Active Katia Alex MD Attending Provider, Referring Prov ider Active Team Status: Inactive Member Role Status Dates Pablo Abreu MD Primary Care Provider Active Israel Escamilla MD Attending Provider Active Team Status: Active Member Role Status Dates Mellissa Padilla APRN Attending Provider Active Consuelo Johnson MD Referring Provider Active Pablo Abreu MD Primary Care Provider Active Team Status: Inactive Member Role Status Dates Consuelo Johnson MD Attending Provider Active Pablo Abreu MD Primary Care Provider Active Economics 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 This clinical summary was aggregated from multiple sources. Caution should be exercised in using it in the provision of clinical care. This summary normalizes information from multiple sources, and as a consequence, information in this document may materially change the coding, format and clinical context of patient data. In addition, data may be omitted in some cases. CLINICAL DECISIONS SHOULD BE BASED ON THE PRIMARY CLINICAL RECORDS. [facility] [employer] provides no warranty or guarantee of the accuracy or completeness of information in this document.
[2023-07-22 12:08] LABS: Basophils Percent Auto 0.6 % (0.2-2.0); Eosinophils Absolute Auto 0.1 10^3/uL (0.0-0.7); Eosinophils Percent Auto 1.1 % (0.9-7.0); Hemoglobin 14.6 g/dL (14.0-18.0); Immature Granulocytes Abs Auto 0.02 10^3/uL (0.00-0.03); Immature Granulocytes Pct Auto 0.3 % (0.0-0.5); Lymphocytes Absolute Auto 1.7 10^3/uL (1.2-3.8); Mean Corpuscular HGB Conc 33.2 g/dL (29.9-35.2); Mean Corpuscular Hemoglobin 32.8 pg (25.9-34.0); Mean Corpuscular Volume 98.9 fL (80.0-94.0); Monocytes Absolute Auto 0.6 10^3/uL (0.3-0.8); Neutrophils Absolute Auto 3.8 10^3/uL (1.4-6.5); Platelet Count 122 10^3/uL (150-450); Red Blood Count 4.45 10^6/uL (4.70-6.10); Red Cell Distribution Width 11.9 % (11.0-15.0); White Blood Count 6.2 10^3/uL (4.0-11.0)
[2023-07-22 12:13] LABS: Estimated Average Glucose 108 mg/dL; Glycohemoglobin A1C 5.4 % (4.5-6.2)
[2023-07-22 13:11] LABS: Alanine Aminotransferase 22 U/L (16-63); Albumin Level 3.6 g/dL (3.4-5.0); Alkaline Phosphatase 60 U/L (46-116); Anion Gap 6.5; Aspartate Amino Transferase 15 U/L (15-37); Bilirubin Direct 0.2 mg/dL (0.0-0.2); Bilirubin Total 0.6 mg/dL (0.2-1.0); Calcium 8.7 mg/dL (8.5-10.1); Carbon Dioxide 35.9 mmol/L (21.0-32.0); Chloride 103 mmol/L (98-107); Chol HDL Ratio 3.1; Cholesterol 166 mg/dL (<=200); Estimated GFR (African America >60 (>=60); Estimated GFR (Non-African Ame >60 (>=60); Globulin 3.5 g/dL; Glucose 100 mg/dL (74-106); HDL Cholesterol 53 mg/dL (40-60); LDL Cholesterol Calculated 86.2 mg/dL; Potassium 4.4 mmol/L (3.5-5.1); Sodium 141 mmol/L (136-145); Total Protein 7.1 g/dL (6.4-8.2); Triglycerides 134 mg/dL (<=150); VLDL CHOLESTEROL 26.8 mg/dL
[2023-07-22 13:54] LABS: Prostate Specific Antigen Dx 0.82 ng/mL (<=4.00)
== END 2023-07-22 11:31 | disposition home or self-care (01) ==
LOC: LAB 11:31
PROVIDERS: PCP Family Medicine; Visit Provider Family Medicine
DX: E11.65 Type 2 diabetes mellitus with hyperglycemia (principal); I10 Essential (primary) hypertension; Z79.899 Other long term (current) drug therapy; E78.5 Hyperlipidemia, unspecified; Z12.5 Encounter for screening for malignant neoplasm of prostate
CPT/HCPCS: 36415; 80048; 80061; 80076; 83036; 84153; 85025

== ENCOUNTER 2023-09-29 13:46 | Outpatient (OUT) | payer MEDICARE, SELFPAY ==
[2023-09-29 14:23] LABS: Basophils Absolute Auto 0.1 10^3/uL (0.0-0.1); Basophils Percent Auto 0.7 % (0.2-2.0); Eosinophils Absolute Auto 0.1 10^3/uL (0.0-0.7); Eosinophils Percent Auto 0.9 % (0.9-7.0); Hematocrit 43.6 % (42.0-54.0); Hemoglobin 14.6 g/dL (14.0-18.0); Immature Granulocytes Abs Auto 0.03 10^3/uL (0.00-0.03); Immature Granulocytes Pct Auto 0.4 % (0.0-0.5); Lymphocytes Absolute Auto 1.8 10^3/uL (1.2-3.8); Lymphocytes Percent Auto 24.6 % (20.5-60.0); Mean Corpuscular HGB Conc 33.5 g/dL (29.9-35.2); Mean Corpuscular Volume 98.4 fL (80.0-94.0); Mean Platelet Volume 11.6 fL (9.5-13.5); Monocytes Absolute Auto 0.7 10^3/uL (0.3-0.8); Monocytes Percent Auto 9.5 % (1.7-12.0); Neutrophils Absolute Auto 4.7 10^3/uL (1.4-6.5); Neutrophils Percent Auto 63.9 % (43.0-75.0); Platelet Count 133 10^3/uL (150-450); Red Blood Count 4.43 10^6/uL (4.70-6.10); Red Cell Distribution Width 12.3 % (11.0-15.0); White Blood Count 7.4 10^3/uL (4.0-11.0)
== END 2023-09-29 13:47 | disposition home or self-care (01) ==
PROVIDERS: PCP Family Medicine
DX: R42 Dizziness and giddiness (principal)
CPT/HCPCS: 36415; 85025

== ENCOUNTER 2023-12-31 14:44 | Outpatient (OUT) | payer MEDICARE, SELFPAY ==
[2023-12-31 15:22] LABS: Estimated Average Glucose 108 mg/dL; Glycohemoglobin A1C 5.4 % (4.5-6.2)
== END 2023-12-31 14:45 | disposition home or self-care (01) ==
LOC: LAB 14:45
PROVIDERS: PCP Family Medicine; Visit Provider Family Medicine
DX: E11.65 Type 2 diabetes mellitus with hyperglycemia (principal)
CPT/HCPCS: 36415; 83036

== ENCOUNTER 2024-01-27 16:33 | Emergency (ER) | payer MEDICARE, SELFPAY ==
[2024-01-27] VITALS (11 sets, daily range): BP systolic 92–127; BP diastolic 51–77; PULSE 72–87; TEMP 36.6; O2SAT 96–99; BMI 25.0
--- OUTSIDE RECORDS SUMMARY | 2024-01-27 16:42 | XMS_ITS | CCD ---
Author Organization [facility] CliniSyar Care Team Providers Care Project Internship Name Role Phone Pablo Abreu Unavailable Unavailable [...] Goodman Consulting Unavailable BETH QUINTANA Consulting Unavailable NEFCY, CHELE Consulting Unavailable SISTER, HUNTER Consulting Unavailable MENG [...] Provider MD Pablo Abreu Primary Care Provider Ramesh Imroldan Unavailable MISA Padilla Attending Provider MD Consuelo Johnson Referring Provider MD Pablo Abreu Primary Care Provider Rogers, Israel Referring Unavailable Escaimlla, Israel Attending Unavailable Naderer, Dr. Pablo Grewal [...] Wood Referring Unavailable Escamilla, Israel Attending Unavailable Naderer, Dr. Pablo Grewal Primary Care Wandy SERVIN, NITZA HUITRON Attending Janice vailable Boomr, Dr. Pablo Grewal Primary Care Wandy Alex, Dr. Katia Perdomo Admitting Unavaila ble Filsherin, Dr. Katia Perdomo Attending Unavaila ble Escamilla, Israel Referring Unavailable Naderer, Dr. Pablo Grewal Primary Care MD Consuelo Buck Attending Provider MD Israel Escamilla Attending Provider MD Pablo Abreu Primary Care Provider MD Katia Alex Attending Provider [phone] MD Katia Alex Referring Provider [phone] Abi, Dr. Katia Perdomo Attending Unavaila ble Escamilla, Dr. Israel Valdez Referring Janice vailable Naderer, Dr. Pablo Grewal Primary Care BRUCE Olson Attending Unavailable Nadmerryr, Dr. Pablo Grewal Primary Care Wandy Alex, Dr. Katia Perdomo Referring Unavaila ble Pablo Abreu MD Primary Care Provider Pablo Abreu Primary Care Unavailable Katia Alex Referring Unavailable Abi, Katia Damico Attending Unavailable Katia Alex Admitting Unavailable Naderer, Pablo Primary Care Unavailable Escamilla, Israel Attending Unavailable Escamilla, Israel Admitting Unavailable Naderer MD, Pablo Uri Primary Care Provider ISRAEL ESCAMILLA Attending Unavailable PABLO ABREU Primary Care ISRAEL Baltazar Attending Unavailable PABLO ABREU Primary Care ISRAEL Baltazar Referring Unavailable PALBO ABREU Attending Unavailable PABLO ABREU Attending Unavailable PABLO ABREU Attending Unavailable PABLO ABREU Attending Unavailable Allergies Allergy Classification Reported Allergen(s) Allergy Type Date of Onset Reaction(s) Facility (3 sources) Mobile tar Drug Allergy rash [facility] Other Medications Current Medications Medication Drug Class(es) Dates Sig (Normalized) Sig (Original) acetaminophen 325 mg / HYDROcodone bitartrate 7.5 mg oral tablet (20 sources) Opioid Agonist Start: 02-14-2021 End: 08-03-2022 take 1 tablet by mouth every six hours Hydrocodone-Acet aminophen (Picher) 7.5-325 mg Tablet Active 1 TAB PO [...] tablet by mouth every Wednesday and only 04/10/2022 Active clopidogrel 75 mg oral tablet (8 sources) [id number] Platelet Inhibitor Start: 09-03-2022 End: 05-25-2024 take 1 tablet by mouth once daily clopidogrel (Plavix) 75 mg tablet Indications: Cerebrovascular accident (CVA), unspecified mechanism (Multi) Take 1 tablet (75 mg) by mouth once daily. 90 tablet 3 05/26/2023 05/25/2024 Active cyclobenzaprine hydrochloride 10 mg oral tablet [...] once daily as needed for muscle spasms. Active docusate sodium 100 mg oral capsule (20 sources) Start: 08-03-2022 take 1 capsule by mouth twice daily Docusate Sodium (Colace) 100 mg Capsule Active 100 MG PO Twice daily August 03, 2022 1:00am Start: 02-14-2021 End: 02-14-2021 Docusate Sodium (Colace) 50 mg Capsule Discontinued 50 MG PO As Directed February 14, 2021 12:00am February 14, 2021 9:41am Colace Active midodrine hydrochloride 10 mg oral tablet (10 sources) alpha-Adrenergic Agonist Start: 10-21-2023 End: 10-20-2024 take 1 tablet by mouth three times daily midodrine (Proamatine) 10 mg tablet Indications: Orthostatic hypotension Take 1 tablet (10 mg) by mouth 3 times daily (morning, midday, late afternoon). 270 tablet 3 10/21/2023 10/20/2024 Active Start: 06-08-2023 End: 10-21-2023 take 1 tablet by mouth twice daily midodrine (Proamatine) 5 mg tablet Indications: Dizziness take 1 tablet by mouth twice a day 180 tablet 3 06/08/2023 10/21/2023 Discontinued (Dose adjustment) Start: 06-08-2022 take 1 tablet by da th twice daily Midodrine HCl - 5 MG Oral Tablet Take 1 tablet twice daily Quantity: 180 Refills: 3 Ordered: 08-Jun-2022 Israel Escamilla MD Start : 08-Jun-2022 Active new start omeprazole 40 mg delayed release oral capsule [...] bedtime February 14, 2021 12:00am Zocor Active sotalol hydrochloride 80 mg oral tablet (20 sources) Antiarrhythmic Start: 10-06-2023 take 1 tablet by mouth twice daily sotalol (Betapace) 80 mg tablet Indications: Atrial fibrillation and flutter (Multi) take 1 tablet by mouth twice a day 180 tablet 3 10/06/2023 Active Start: 09-30-2022 take 1 tablet by da th once daily Sotalol HCl - 80 MG [...] 2022 1:00am Betapace Not-Rufus ing Betapace Active Completed/Discontinued Medications Medication Drug Class(es) Dates Sig (Normalized) Sig (Original) [id number] 200 actuat albuterol 0.09 mg/actuat metered dose inhaler (5 sources) beta2-Adrenergic Agonist Start: 02-14-2021 End: 08-03-2022 [...] Aspir-81 Active atenolol 25 mg oral tablet (5 sources) beta-Adrenergic Anaya Start: 02-14-2021 End: 02-17-2021 [...] 10 ml Mouth/Throat twice daily Oct, Active doxycycline hyclate 100 mg oral tablet (5 sources) Tetracycline-class Drug Start: 02-17-2021 End: 08-03-2022 take 100 mg by mouth twice daily Doxycycline Hyclate Discontinued 100 MG PO Twice daily 16 8 February 17, 2021 12:00am August 03, 2022 3:56pm ferrous sulfate 325 mg oral tablet (3 sources) take 1 tablet by mouth once daily at mealtime Ferrous Sulfate 325 (65 Fe) MG Oral Tablet TAKE 1 TABLET DAILY WITH FOOD. Quantity: 90 Refills: 3 Ordered: 07-Oct-2022 DO Active FLUoxetine 40 mg oral capsule (5 sources) Serotonin Reuptake Inhibitor Start: 02-14-2021 End: 02-14-2021 take 1 capsule by mouth once daily Fluoxetine (Prozac) 40 mg Capsule Discontinued 40 MG PO Daily February 14, 2021 12:00am February 14, 2021 9:39am gabapentin 100 mg oral capsule (5 sources) Anti-epileptic Agent Start: 02-14-2021 End: 02-14-2021 take 100 mg by mouth three times daily Gabapentin Discontinued 100 MG PO Three times daily February 14, 2021 12:00am February 14, 2021 8:50am predniSONE 10 mg oral tablet (5 sources) Start: 02-17-2021 End: 08-03-2022 Prednisone Discontinued 10 MG PO Daily February 17, 2021 12:00am August 03, 2022 3:56pm 30mg daily x 2 days, 20 mg daily x 2 days, 10mg daily x 2 days, then stop. Take in AM with food. tamsulosin hydrochloride 0.4 mg oral capsule (20 [...] tablet (75 mg) by mouth once daily. Active warfarin sodium 2 mg oral tablet (16 sources) Vitamin K Antagonist Start: 02-14-2021 End: [...] 3 02-14-2021 Chronic Coagulation and hemorrhagic disorders (11 sources) Thrombocytopenic disorder; Translations: [Thrombocytopenia, unspecified] 02-14-2021 Chronic Conditions associated with dizziness or vertigo (13 sources) Dizziness; Translations: [Dizziness and giddiness] 02-14-2021 Episodic Coronary atherosclerosis and other heart disease (20 sources) Coronary arteriosclerosis; Translations: [Coronary atherosclerosis of unspecified type of vessel, kobuk or graft] Onset: 3 02-14-2021 Chronic Deficiency and other anemia (3 sources) Iron deficiency anemia secondary to blood loss (chronic); Translations: [Iron deficiency anemia secondary to blood loss (chronic)] Onset: 3 08-20-2022 Chronic Deficiency and other anemia (4 sources) Anemia due to blood loss; Translations: [Iron deficiency anemia secondary to blood loss (chronic)] 08-20-2022 Chronic Deficiency and other anemia (1 source) Anemia, unspecified Episodic Diabetes mellitus with complications (12 sources) Type 2 diabetes mellitus; Translations: [Diabetes with neurological manifestations, type II or unspecified type, not stated as uncontrolled] Onset: 3 Chronic Diabetes mellitus without complication (20 sources) Diabetes mellitus; Translations: [Diabetes mellitus without mention of complication, type II or unspecified type, not stated as uncontrolled] Onset: 3 02-14-2021 Chronic Disorders of lipid metabolism (20 sources) Hyperlipidemia; Translations: [Other and unspecified hyperlipidemia] [...] PRIMARY HYPERTENSION] Onset: 3 Chronic Gastrointestinal hemorrhage (13 sources) Gastrointestinal hemorrhage, unspecified; Translations: [Acute gastrointestinal hemorrhage] Onset: 3 Episodic Hyperplasia of prostate (6 sources) Benign prostatic hyperplasia without lower urinary tract symptoms; Translations: [Benign prostatic hyperplasia] Onset: 3 02-14-2021 Chronic Late effects of cerebrovascular disease (1 source) Hemiplegia and hemiparesis following cerebral infarction affecting left non-dominant side; Translations: [Hemiplga following cerebral infrc affecting left nondom side] Onset: 3 Chronic Mood disorders (5 sources) Depressive disorder; Translations: [Depression] 02-14-2021 Chronic Nonspecific chest pain (5 sources) Chest pain; Translations: [Chest pain, unspecified] 02-14-2021 Episodic Other aftercare (9 sources) Drug therapy finding; Translations: [Long-term (current) use of other medications] Episodic Other aftercare (1 source) Other terminal system operator (current) drug therapy; Translations: [OTH PRE KINDERGARTEN TEACHER CURRENT DRUG THERAPY] Onset: 3 Episodic Other aftercare (1 source) terminal system operator (current) use of aspirin; Translations: [PRE KINDERGARTEN TEACHER CURRENT USE OF ASPIRIN] Onset: 3 Episodic Other aftercare (4 sources) Encounter for therapeutic drug level monitoring; Translations: [ENC THERAPEUTC DRUG LEVL MONITORING] Onset: 3 Episodic Other aftercare (1 source) terminal system operator (current) use of anticoagulants; Translations: [PRE KINDERGARTEN TEACHER CURRNT USE ANTICOAGULANTS] Onset: 3 Episodic Other aftercare (5 sources) Long-term current use of anticoagulant; Translations: [terminal system operator (current) use of anticoagulants] 02-14-2021 Episodic Other and ill-defined cerebrovascular disease (1 source) Cerebrovascular disease, unspecified; Translations: [CEREBROVASCULAR DISEASE UNSPECIFIED] Onset: 3 Chronic Other circulatory disease (3 sources) Device in situ; Translations: [Other specified cardiac device in situ] Chronic Other circulatory disease (5 sources) Presence of other cardiac implants and grafts; Translations: [Presence of Watchman left atrial appendage closure device] Onset: 4 10-21-2023 Chronic Other circulatory disease (10 sources) Orthostatic hypotension; Translations: [Orthostatic hypotension] Onset: 4 10-21-2023 Episodic Other circulatory disease (1 source) Personal history of transient ischemic attack (TIA), and cerebral infarction without residual deficits; Translations: [PERS HX TIA AND CI NO RESID DEFICIT] Onset: 3 Episodic Other circulatory disease (3 sources) Orthostatic hypotension; Translations: [ORTHOSTATIC HYPOTENSION] Onset: 3 Episodic Other circulatory disease (1 source) Hypotension, unspecified; Translations: [HYPOTENSION UNSPECIFIED] Onset: 3 Episodic Other injuries and conditions due to external causes (1 source) History of falling; Translations: [History of falling] Onset: 3 Episodic Other nutritional; endocrine; and metabolic disorders (9 sources) Obesity; Translations: [Obesity, unspecified] 02-14-2021 Chronic Other nutritional; endocrine; and metabolic disorders (5 sources) Hypomagnesemia; Translations: [Hypomagnesemia] 02-14-2021 Chronic Other nutritional; endocrine; and metabolic disorders (11 sources) Overweight in adulthood with body mass index of 25 or more but less than 30; Translations: [Overweight] Onset: 4 10-21-2023 Episodic Other nutritional; endocrine; and metabolic disorders (2 sources) Overweight; Translations: [Overweight] Onset: 4 Episodic Other nutritional; endocrine; and metabolic disorders (2 sources) Body mass index (BMI) 27.0-27.9, adult; Translations: [Body mass index (BMI) 27.0-27.9, adult] Onset: 4 Episodic Other screening for suspected conditions (not [...] caused by tuberculosis or sexually transmitted disease) (5 sources) Pneumonia; Translations: [Pneumonia, unspecified organism] 02-14-2021 Episodic Residual codes; unclassified (5 sources) Tobacco user; Translations: [Tobacco use] 02-14-2021 Episodic Spondylosis; intervertebral disc disorders; other back problems (1 source) Other intervertebral disc degeneration, lumbar region; Translations: [OTH IV DISC DEGEN LUMBAR REGION] Onset: 3 Chronic Spondylosis; intervertebral disc disorders; other back problems (5 sources) Chronic back pain ; Translations: [Dorsalgia, unspecified] 02-14-2021 Episodic Substance-related disorders (20 sources) Smokes tobacco daily; Translations: [Tobacco use disorder] Onset: 3 04-13-2023 Chronic Comment on above: 1 ppd; Syncope (6 sources) Syncope and collapse; Translations: [Near syncope] Onset: 3 02-14-2021 Episodic Unclassified (1 source) CONTACT W/AND (SUSP) EXPOS COVID-19; Translations: [CONTACT W/AND (SUSP) EXPOS COVID-19] Onset: 3 Past or Other Problems Problem Classification Problem Date Documented Da te Episodic/Chronic Diseases of mouth; excluding dental (1 source) [...] FOREARM INITIAL ENC] Onset: 10-07-2021 Episodic Unclassified (2 sources) Onset: 04-13-2023 Resolved: 10-21-2023 04-13-2023 Results Test Name Value Interpretation Reference Range Facility ECG 12 [place] 10-21-2023 ECG revealed normal sinus rhythm with left axis deviation [facility] Work Phone: ECG 12 [place] 04-13-2023 ECG reveals normal sinus rhythm with left axis deviation [facility] Work Phone: CT Watchman Full Contraston 12-25-2022 CT Watchman Full Contrast Normal [facility] [address] [place] Work Phone: TH CT WATCHMAN [...] STRUCTURES ARE THE SOLE RESPONSIBILITY OF THE APPLICATION CONSULTANT SUBMITTING THE ORIGINAL REPORT (NOT THIS ADDENDUM) Electronically signed by: ALBINO LAGUNA MD Addendum Ends Patient Name: SEN GARCIA STUDY: TH CT WATCHMAN FULL CONTRAST; 12/25/2022 10:12 am INDICATION: post watchman device surveilance I48.0: Paroxysmal atrial fibrillation. COMPARISON: None. ACCESSION NUMBER(S): [id number] ORDERING CLINICIAN: KATIA ALEX TECHNIQUE: Using multidetector [...] surface/left atrial aspect of closure device. Reading [employer] Machine Shop Supervisor: Dr. Festus Crenshaw, Date: 12/25/2022 10:19 am Electronically signed by: ALBINO LAGUNA MD [facility] Albumin [Mass/volume] in Ser um or Plasma by Bromocresol green (BCG) dye binding methoOrdered By: Katia Alex on 12-24-2022 Albumin BCG dye [Mass/Vol] 4.3 g/dL 3.5-5.7 [facility] Calcium [Mass/volume] in Ser um or PlasmaOrdered By: Katia Alex on 12-24-2022 Calcium [Mass/Vol] 9.3 mg/dL 8.6-10.3 [facility] Carbon dioxide, total [Moles /volume] in Serum or PlasmaOrdered By: Katia Alex on 12-24-2022 CO2 [Moles/Vol] 34.3 mmol/L 21.0-31.0 [facility] Chloride [Moles/volume] in S rodo or PlasmaOrdered By: Katia Alex on 12-24-2022 Chloride [Moles/Vol] 101 mmol/L 98-107 [facility] Creatinine [Mass/volume] in Serum or PlasmaOrdered By: Katia Alex on 12-24-2022 Creatinine [Mass/Vol] 0.83 mg/dL 0.70-1.30 [facility] Glucose [Mass/volume] in Ser um or PlasmaOrdered By: Katia Alex on 12-24-2022 Glucose [Mass/Vol] 99 mg/dL 70-100 [facility] Comment on above: ADA recommended refe rence rangeRandom Glucose Reference Range is dependent on time and content of last meal. Glucose of more than 200 mg/dL in a nonstressed, ambulatory subject supports the diagnosis of Diabetes Mellitus. No Panel InformationOrdered By: Katia Alex on 12-24-2022 Estimated GFR (CKD-EPI) > 60.0 mL/Min [facility] Creatinine Clearance (Chem N/A [facility] Phosphate [Mass/volume] in S rodo or PlasmaOrdered By: Katia Alex on 12-24-2022 Phosphate [Mass/Vol] 2.6 mg/dL 3.7-7.2 [facility] Potassium [Moles/volume] in Serum or PlasmaOrdered By: Katia Alex on 12-24-2022 Potassium [Moles/Vol] 4.4 mmol/L 3.5-5.1 [facility] Renal Function Panelon 12-24 Albumin [Mass/Vol] 4.3 g/dL Normal 3.5-5.7 [facility] Comment on above: Result Comment: PERF ORMED BY: [place] [address] PATHOLOGIST CQ DEVELOPER ARDEN MELTON M.D. Performed By: #### R ENAL #### [facility] [address] [place] [address] Anion gap [Moles/Vol] 9.1 mmol/L Normal 6.0-15.0 [facility] Comment on above: Performed By: #### R ENAL #### [facility] [address] [place] [address] [place] Calcium [Mass/Vol] 9.3 mg/dL Normal 8.6-10.3 [facility] Comment on above: Performed By: #### R ENAL #### [facility] [address] [place] [address] [place] Chloride [Moles/Vol] 101 mmol/L Normal 98-107 [facility] Comment on above: Performed By: #### R ENAL #### [facility] [address] [place] [address] [place] CO2 [Moles/Vol] 34.3 mmol/L High 21.0-31.0 [facility] Comment on above: Performed By: #### R ENAL #### [place] [address] [place] Creatinine [Mass/Vol] 0.83 mg/dL Normal 0.70-1.30 [facility] Comment on above: Performed By: #### R ENAL #### [place] [address] [place] GFR/1.73 sq M.predicted MDRD (S/P/Bld) [Vol rate/Area] mL/min/{1.73_m2} Normal [facility] Comment on above: Performed By: #### R ENAL #### [address] Glucose [Mass/Vol] 99 mg/dL Normal 70-100 [facility] Comment on above: Result Comment: [place] Glucose Reference Range is dependent on time and content of last meal. Glucose of more than 200 mg/dL in a nonstressed, ambulatory subject supports the diagnosis of Diabetes Mellitus. ADA recommended reference range Performed By: #### R ENAL #### [place] [address] [place] Phosphate [Mass/Vol] 2.6 mg/dL Low 3.7-7.2 [facility] Comment on above: Performed By: #### R ENAL #### [place] [address] [place] Potassium [Moles/Vol] 4.4 mmol/L Normal 3.5-5.1 [facility] Comment on above: Performed By: #### R ENAL #### [place] [address] [place] Sodium [Moles/Vol] 140 mmol/L Normal 136-145 [facility] Comment on above: Performed By: #### R ENAL #### [place] [address] [place] Urea nitrogen [Mass/Vol] 14 mg/dL Normal 7-25 [facility] Comment on above: Performed By: #### R ENAL #### [place] [id number] [place] Serum or plasma anion gap de terminationOrdered By: Katia Alex on 12-24-2022 Anion gap [Moles/Vol] 9.1 mmol/L 6.0-15.0 [facility] Sodium [Moles/volume] in Ser um or PlasmaOrdered By: Katia Alex on 12-24-2022 Sodium [Moles/Vol] 140 mmol/L 136-145 [facility] Urea nitrogen [Mass/volume] in Serum or PlasmaOrdered By: Katia Alex on 12-24-2022 Urea nitrogen [Mass/Vol] 14 mg/dL 12-22 [facility] Alanine Aminotransferaseon 0 10-29-2022 ALT [Catalytic activity/Vol] 13 U/L Normal [facility] Comment on above: Order Comment: SAVITA DamicoKW Performed By: #### C BC, ALT, BMP, AST, LIPID #### [facility] [address] Alanine aminotransferase [En zymatic activity/volume] in Serum or PlasmaOrdered By: Israel Escamilla on 10-29-2022 ALT [Catalytic activity/Vol] 13 U/L [facility] Aspartate Amino Transferaseo n 10-29-2022 AST [Catalytic activity/Vol] 17 U/L Normal [facility] Comment on above: Order Comment: SAVITA DamicoKW Performed By: #### C BC, ALT, BMP, AST, LIPID #### [facility] [address] Aspartate aminotransferase [ Enzymatic activity/volume] in Serum or PlasmaOrdered By: Israel Escamilla on 10-29-2022 AST [Catalytic activity/Vol] 17 U/L 13-39 [facility] Basic Metabolic Panelon Anion gap [Moles/Vol] 8.1 mmol/L Normal 6.0-15.0 [facility] Comment on above: Order Comment: SAVITA HALL JKW Performed By: #### C BC, ALT, BMP, AST, LIPID #### [facility] [address] [place] [address] [place] Calcium [Mass/Vol] 9.5 mg/dL Normal 8.6-10.3 [facility] Comment on above: Order Comment: FASTI NG. JKW Performed By: #### C BC, ALT, BMP, AST, LIPID #### [facility] [address] Chloride [Moles/Vol] 103 mmol/L Normal 98-107 [facility] Comment on above: Order Comment: FASTI NG. JKW Performed By: #### C BC, ALT, BMP, AST, LIPID #### [address] CO2 [Moles/Vol] 34.5 mmol/L High 21.0-31.0 [facility] Comment on above: Order Comment: FASTI NG. JKW Performed By: #### C BC, ALT, BMP, AST, LIPID #### [address] Creatinine [Mass/Vol] 0.77 mg/dL Normal 0.70-1.30 [facility] Comment on above: Order Comment: FASTI NG. JKW Performed By: #### C BC, ALT, BMP, AST, LIPID #### [place] [address] [place] GFR/1.73 sq M.predicted MDRD (S/P/Bld) [Vol rate/Area] mL/min/{1.73_m2} Normal [facility] Comment on above: Order Comment: FASTI NG. JKW Performed By: #### C BC, ALT, BMP, AST, LIPID #### [address] Glucose [Mass/Vol] 105 mg/dL High 70-100 [facility] Comment on above: Order Comment: FASTI NG. JKW Result Comment: [place] om Glucose Reference Range is dependent on time and content of last meal. Glucose of more than 200 mg/dL in a nonstressed, ambulatory subject supports the diagnosis of Diabetes Mellitus. ADA recommended reference range Performed By: #### C BC, ALT, BMP, AST, LIPID #### [address] [place] [address] [place] Potassium [Moles/Vol] 4.6 mmol/L Normal 3.5-5.1 [facility] Comment on above: Order Comment: FASTI NG. JKW Performed By: #### C BC, ALT, BMP, AST, LIPID #### [facility] [address] Sodium [Moles/Vol] 141 mmol/L Normal 136-145 [facility] Comment on above: Order Comment: FASTI NG. JKW Performed By: #### C BC, ALT, BMP, AST, LIPID #### [facility] [address] Urea nitrogen [Mass/Vol] 14 mg/dL Normal 7-25 [facility] Comment on above: Order Comment: FASTI NG. JKW Performed By: #### C BC, ALT, BMP, AST, LIPID #### [facility] [address] Basophils Auto (Bld) [#/Vol] Ordered By: Israel Escamilla on 10-29-2022 Basophils (Bld) [#/Vol] 0.0 10*3/uL 0.0-0.2 [facility] Basophils/100 WBC Auto (Bld) Ordered By: Israel Escamilla on 10-29-2022 Basophils/100 WBC (Bld) 0.6 % . F [facility] Calcium [Mass/volume] in Ser um or PlasmaOrdered By: Israel Escamilla on 10-29-2022 Calcium [Mass/Vol] 9.5 mg/dL 8.6-10.3 [facility] Carbon dioxide, total [Moles /volume] in Serum or PlasmaOrdered By: Israel Escamilla on 10-29-2022 CO2 [Moles/Vol] 34.5 mmol/L 21.0-31.0 [facility] Chloride [Moles/volume] in S rodo or PlasmaOrdered By: Israel Escamilla on 10-29-2022 Chloride [Moles/Vol] 103 mmol/L 98-107 [facility] Cholesterol [Mass/volume] in Serum or PlasmaOrdered By: Israel Escamilla on 10-29-2022 Cholesterol [Mass/Vol] 167 mg/dL 140-200 [facility] Comment on above: Chol less than 200 m g/dl low riskChol 201-239 mg/dl borderline riskChol 240 mg/dl and greater high risk Cholesterol in LDL Calc [Mas s/Vol]Ordered By: Israel Escamilla on 10-29-2022 Cholesterol in LDL [Mass/Vol] 87 mg/dL 0-100 [facility] Comment on above: LDL ATP III CLASSIFI CATIONLDL less than 100 mg/dL OptimalLDL 100-129 mg/dL Near or above optimalLDL 130-159 mg/dL Borderline highLDL 160-189 mg/dL HighLDL greater than 189 mg/dL Very high Cholesterol in VLDL Calc [Ma ss/Vol]Ordered By: Israel Escamilla on 10-29-2022 Cholesterol in VLDL [Mass/Vol] 34 mg/dL [facility] Complete Blood Count Auto Di ffon 10-29-2022 Basophils (Bld) [#/Vol] 0.0 10*3/uL Normal 0.0-0.2 [facility] Comment on above: Order Comment: FASTI NG. JKW Result Comment: PERF ORMED BY: [place] [address] PATHOLOGIST CQ DEVELOPER ARDEN MELTON M.D. Performed By: #### C BC, ALT, BMP, AST, LIPID #### [facility] [address] [place] [address] Basophils/100 WBC (Bld) 0.6 % Normal . T he [facility] Comment on above: Order Comment: FASTI NG. JKW Performed By: #### C BC, ALT, BMP, AST, LIPID #### [facility] [address] [place] [address] [place] Eosinophils (Bld) [#/Vol] 0.1 10*3/uL Normal 0.0-0.45 [facility] Comment on above: Order Comment: FASTI NG. JKW Performed By: #### C BC, ALT, BMP, AST, LIPID #### [facility] [address] [place] [address] Eosinophils/100 WBC (Bld) 1.4 % Normal . [facility] Comment on above: Order Comment: FASTI NG. JKW Performed By: #### C BC, ALT, BMP, AST, LIPID #### [address] Erythrocyte distribution width (RBC) [Ratio] 14.0 % Normal 12.0-14.8 [facility] Comment on above: Order Comment: FASTI NG. JKW Performed By: #### C BC, ALT, BMP, AST, LIPID #### [address] Hematocrit (Bld) [Volume fraction] 44.1 % Normal 38.8-50.0 [facility] Comment on above: Order Comment: FASTI NG. JKW Performed By: #### C BC, ALT, BMP, AST, LIPID #### [address] Hemoglobin (Bld) [Mass/Vol] 15.0 g/dL Normal 13.0-17.0 [facility] Comment on above: Order Comment: FASTI NG. JKW Performed By: #### C BC, ALT, BMP, AST, LIPID #### [address] Lymphocytes (Bld) [#/Vol] 1.8 10*3/uL Normal 1.00-4.8 [facility] Comment on above: Order Comment: FASTI NG. JKW Performed By: #### C BC, ALT, BMP, AST, LIPID #### [address] Lymphocytes/100 WBC (Bld) 27.6 % Normal . [facility] Comment on above: Order Comment: FASTI NG. JKW Performed By: #### C BC, ALT, BMP, AST, LIPID #### [address] MCH (RBC) [Entitic mass] 31.1 pg Normal 27.5-35.2 [facility] Comment on above: Order Comment: FASTI NG. JKW Performed By: #### C BC, ALT, BMP, AST, LIPID #### [address] MCV (RBC) [Entitic vol] 91.6 fL Normal 83.5-101 [facility] Comment on above: Order Comment: FASTI NG. JKW Performed By: #### C BC, ALT, BMP, AST, LIPID #### [address] Mean Corpuscular HGB Conc 33.9 g/dL Normal 32.5-35.6 [facility] Comment on above: Order Comment: FASTI NG. JKW Performed By: #### C BC, ALT, BMP, AST, LIPID #### [address] Monocytes (Bld) [#/Vol] 0.6 10*3/uL Normal 0.0-0.8 [facility] Comment on above: Order Comment: FASTI NG. JKW Performed By: #### C BC, ALT, BMP, AST, LIPID #### [address] Monocytes/100 WBC (Bld) 8.9 % Normal . [facility] Comment on above: Order Comment: FASTI NG. JKW Performed By: #### C BC, ALT, BMP, AST, LIPID #### [address] Neutrophils (Bld) [#/Vol] 3.9 10*3/uL Normal 1.8-7.7 [facility] Comment on above: Order Comment: FASTI NG. JKW Performed By: #### C BC, ALT, BMP, AST, LIPID #### [address] Neutrophils/100 WBC (Bld) 61.5 % Normal . [facility] Comment on above: Order Comment: FASTI NG. JKW Performed By: #### C BC, ALT, BMP, AST, LIPID #### [address] [place] [address] [place] NRBC% 0.1 /100{WBC} Normal 0-0.5 [facility] Comment on above: Order Comment: FASTI NG. JKW Performed By: #### C BC, ALT, BMP, AST, LIPID #### [address] Platelet mean volume (Bld) [Entitic vol] 9.6 fL Normal 6.6-10.1 [facility] Comment on above: Order Comment: FASTI NG. JKW Performed By: #### C BC, ALT, BMP, AST, LIPID #### [address] Platelets (Bld) [#/Vol] 124 10*3/uL Low 150-450 [facility] Comment on above: Order Comment: FASTI NG. JKW Performed By: #### C BC, ALT, BMP, AST, LIPID #### [address] RBC (Bld) [#/Vol] 4.82 10*6/uL Normal 3.90-5.60 [facility] Comment on above: Order Comment: FASTI NG. JKW Performed By: #### C BC, ALT, BMP, AST, LIPID #### [address] WBC (Bld) [#/Vol] 6.4 10*3/uL Normal 4.1-10.5 [facility] Comment on above: Order Comment: FASTI NG. JKW Performed By: #### C BC, ALT, BMP, AST, LIPID #### [address] Creatinine [Mass/volume] in Serum or PlasmaOrdered By: Israel Escamilla on 10-29-2022 Creatinine [Mass/Vol] 0.77 mg/dL 0.70-1.30 [facility] Eosinophils Auto (Bld) [#/Vo l]Ordered By: Israel Escamilla on 10-29-2022 Eosinophils (Bld) [#/Vol] 0.1 10*3/uL 0.0-0.45 [facility] Eosinophils/100 WBC Auto (Bl d)Ordered By: Israel Escamilla on 10-29-2022 Eosinophils/100 WBC (Bld) 1.4 % . [facility] Erythrocyte distribution wid th Auto (RBC) [Ratio]Ordered By: Israel Escamilla on 10-29-2022 Erythrocyte distribution width (RBC) [Ratio] 14.0 % 12.0-14.8 [facility] Glucose [Mass/volume] in Ser um or PlasmaOrdered By: Israel Escamilla on 10-29-2022 Glucose [Mass/Vol] 105 mg/dL 70-100 [facility] Comment on above: ADA recommended refe rence rangeRandom Glucose Reference Range is dependent on time and content of last meal. Glucose of more than 200 mg/dL in a nonstressed, ambulatory subject supports the diagnosis of Diabetes Mellitus. Hematocrit Auto (Bld) [Volum e fraction]Ordered By: Israel Escamilla on 10-29-2022 Hematocrit (Bld) [Volume fraction] 44.1 % 38.8-50.0 [facility] Hemoglobin [Mass/volume] in BloodOrdered By: Israel Escamilla on 10-29-2022 Hemoglobin (Bld) [Mass/Vol] 15.0 g/dL 13.0-17.0 [facility] Laboratory - Chemistry and C hemistry - challengeon 10-29-2022 Cholesterol [Mass/Vol] 167\S\167 Normal 140-200 [facility] [place] [address] DO Work Phone: Comment on above: Chol less than 200 m g/dl low risk Chol 201-239 mg/dl borderline risk Chol 240 mg/dl and greater high risk Cholesterol in LDL [Mass/Vol] 87\S\87 Normal 0-100 [facility] [place] [facility] Work Phone: Comment on [...] RBC Auto (Bld) [#/Vol] 6.4 10*3/uL 4.1-10.5 [facility] Lipid Panelon 10-29-2022 Cholesterol [Mass/Vol] 167 mg/dL Normal 140-200 Th e [facility] Comment on above: Order Comment: SAVITA DamicoKW Result Comment: Chol less than 200 mg/dl low risk Chol 201-239 mg/dl borderline risk Chol 240 mg/dl and greater high risk Performed By: #### C BC, ALT, BMP, AST, LIPID #### [facility] [address] Cholesterol in HDL [Mass/Vol] 45 mg/dL Normal 29-71 [facility] Comment on above: Order Comment: SAVITA DamicoKW Result Comment: HDL CHOL ATP-III CLASSIFICATION Cardiovascular Risk HDL > or equal to 60 mg/dL LOW HDL < 40 mg/dL HIGH Performed By: #### C BC, ALT, BMP, AST, LIPID #### [facility] [address] Cholesterol.total/Margie sterol in HDL [Mass ratio] 3.7 {ratio} Normal <5.0 [facility] Comment on above: Order Comment: SAVITA DamicoKW Result Comment: PERF ORMED BY: [place] [address] PATHOLOGIST CQ DEVELOPER ARDEN MELTON M.D. Performed By: #### C BC, ALT, BMP, AST, LIPID #### [facility] [address] [place] [id number] [facility] LDL Cholesterol,Calculated 87 mg/dL Normal 0-100 [facility] Comment on above: Order Comment: SAVITA DamicoKW Result Comment: LDL ATP III CLASSIFICATION LDL less than 100 mg/dL Optimal LDL 100-129 mg/dL Near or above optimal LDL 130-159 mg/dL Borderline high LDL 160-189 mg/dL High LDL greater than 189 mg/dL Very high Performed By: #### C BC, ALT, BMP, AST, LIPID #### [facility] [address] Triglyceride w/Reflex 174 mg/dL High 0-149 [facility] Comment on above: Order Comment: SAVITA GARIBAY Result Comment: TRIG ATP III CLASSIFICATION TRIG less than 150 mg/dL Normal TRIG 150-199 mg/dL Borderline high TRIG 200-500 mg/dL High TRIG greater than 500 mg/dL Very high Standard traceable to the Center for Disease Conrtrol and Prevention (CDC) test method. Performed By: #### C BC, ALT, BMP, AST, LIPID #### [facility] [address] VLDL CHOLESTEROL 34 mg/dL Normal [facility] Comment on above: Order Comment: SAVITA GARIBAY Performed By: #### C BC, ALT, BMP, AST, LIPID #### [facility] [address] Lymphocytes Auto (Bld) [#/Vo l]Ordered By: Israel Escamilla on 10-29-2022 Lymphocytes (Bld) [#/Vol] 1.8 10*3/uL 1.00-4.8 [facility] Lymphocytes/100 WBC Auto (Bl d)Ordered By: Israel Escamilla on 10-29-2022 Lymphocytes/100 WBC (Bld) 27.6 % . [facility] MCH Auto (RBC) [Entitic mass ]Ordered By: Israel Escamilla on 10-29-2022 MCH (RBC) [Entitic mass] 31.1 pg 27.5-35.2 [facility] MCHC Auto (RBC) [Mass/Vol]Or dered By: Israel Escamilla on 10-29-2022 MCHC (RBC) [Mass/Vol] 33.9 g/dL 32.5-35.6 [facility] MCV Auto (RBC) [Entitic vol] Ordered By: Israel Escamilla on 10-29-2022 MCV (RBC) [Entitic vol] 91.6 fL 83.5-101 F [facility] Monocytes Auto (Bld) [#/Vol] Ordered By: Israel Escamilla on 10-29-2022 Monocytes (Bld) [#/Vol] 0.6 10*3/uL 0.0-0.8 [facility] Monocytes/100 WBC Auto (Bld) Ordered By: Israel Escamilla on 10-29-2022 Monocytes/100 WBC (Bld) 8.9 % . F [facility] Neutrophils Auto (Bld) [#/Vo l]Ordered By: Israel Escamilla on 10-29-2022 Neutrophils (Bld) [#/Vol] 3.9 10*3/uL 1.8-7.7 [facility] Neutrophils/100 WBC Auto (Bl d)Ordered By: Israel Escamilla on 10-29-2022 Neutrophils/100 WBC (Bld) 61.5 % . [facility] No Panel InformationOrdered By: Israel Escamilla on 10-29-2022 Estimated GFR (CKD-EPI) > 60.0 mL/Min [facility] Creatinine Clearance (Chem N/A [facility] No Panel Informationon 10-29 61.5\S\61.5 Normal . [facility] [address] DO Work Phone: 9.6\S\9.6 Normal 6.6-10.1 [facility] [address] DO Work Phone: 124\S\124 below low threshold 150-450 [facility] [address] DO Work Phone: 14.0\S\14.0 Normal 12.0-14.8 [facility] [address] DO Work Phone: 33.9\S\33.9 Normal 32.5-35.6 [facility] [address] DO Work Phone: 31.1\S\31.1 Normal 27.5-35.2 [facility] [address] DO Work Phone: 3.9\S\3.9 Normal 1.8-7.7 [facility] [address] DO Work Phone: 0.1\S\0.1 Normal 0.0-0.45 [facility] [address] DO Work Phone: 0.6\S\0.6 Normal 0.0-0.8 [facility] [address] DO Work Phone: 1.4\S\1.4 Normal . [facility] [address] DO Work Phone: 8.9\S\8.9 Normal . [facility] [address] DO Work Phone: 27.6\S\27.6 Normal . [facility] [address] DO Work Phone: 0.0\S\0.0 Normal 0.0-0.2 [facility] [address] DO Work Phone: Comment on above: PERFORMED BY:[place] [address] [address] [place], [place] [phone] MEDICAL DIRECTORARDEN MELTON M.D. 1.8\S\1.8 Normal 1.00-4.8 [facility] [address] DO Work Phone: 91.6\S\91.6 Normal 83.5-101 [facility] [address] DO Work Phone: 44.1\S\44.1 Normal 38.8-50.0 [facility] [address] DO Work Phone: 15.0\S\15.0 Normal 13.0-17.0 [facility] [address] DO Work Phone: 4.82\S\4.82 Normal 3.90-5.60 [facility] [address] DO Work Phone: 6.4\S\6.4 Normal 4.1-10.5 [facility] [address] DO Work Phone: > 60.0 Normal [facility] [address] DO Work Phone: [phone] 8.1\S\8.1 Normal 6.0-15.0 [facility] [place] [address] DO Work Phone: [phone] 9.5\S\9.5 Normal 8.6-10.3 [facility] [place] [address] DO Work Phone: [phone] 34.5\S\34.5 above high threshold 21.0-31.0 [facility] [place] [address] DO Work Phone: [phone] 103\S\103 Normal 98-107 [facility] [place] 250 DO Work Phone: [phone] 4.6\S\4.6 Normal 3.5-5.1 [facility] [place] 250 DO Work Phone: 141\S\141 Normal 136-145 [facility] [place] 250 DO Work Phone: [phone] 0.77\S\0.77 Normal 0.70-1.30 [facility] [place] 250 DO Work Phone: [phone] 14\S\14 Normal 7-25 [facility] [place] 250 DO Work Phone: 105\S\105 above high threshold 70-100 [facility] [place] 250 DO Work Phone: Comment on above: Random Glucose Refer ence Range is dependent on time and content of last meal. Glucose of more than 200 mg/dL in a nonstressed, ambulatory subject supports the diagnosis of Diabetes Mellitus. ADA recommended reference range 17\S\17 Normal 13-39 [facility] [place] [address] DO Work Phone: [phone] 13\S\13 Normal 7-52 [facility] [place] [address] DO Work Phone: [phone] 3.7\S\3.7 Normal <5.0 [facility] [place] 250 DO Work Phone: Comment on above: PERFORMED BY:[facility] [place] [id number] MEDICAL DIRECTORARDEN MELTON M.D. 34\S\34 Normal [facility] [address] DO Work Phone: 174\S\174 above high threshold 0-149 [facility] [place] [address] DO Work Phone: Comment on above: TRIG ATP III CLASSIF ICATION TRIG less than 150 mg/dL Normal TRIG 150-199 mg/dL Borderline high TRIG 200-500 mg/dL High TRIG greater than 500 mg/dL Very high Standard traceable to the Center for Disease Conrtrol and Prevention (CDC) test method. 45\S\45 Normal 29-71 [facility] [place] [address] DO Work Phone: Comment on above: HDL CHOL ATP-III CLA SSIFICATION Cardiovascular Risk HDL > or equal to 60 mg/dL LOW HDL < 40 mg/dL HIGH Nucleated erythrocytes [Pres ence] in Blood by Automated countOrdered By: Israel Escamilla on 10-29-2022 Nucleated RBC Auto Ql (Bld) 0.1 /100{WBC} 0-0.5 [facility] Platelet mean volume Auto (B ld) [Entitic vol]Ordered By: Israel Escamilla on 10-29-2022 Platelet mean volume (Bld) [Entitic vol] 9.6 fL 6.6-10.1 [facility] Platelets Auto (Bld) [#/Vol] Ordered By: Israel Escamilla on 10-29-2022 Platelets (Bld) [#/Vol] 124 10*3/uL 150-450 [facility] Potassium [Moles/volume] in Serum or PlasmaOrdered By: Israel Escamilla on 10-29-2022 Potassium [Moles/Vol] 4.6 mmol/L 3.5-5.1 [facility] RBC Auto (Bld) [#/Vol]Ordere d By: Israel Escamilla on 10-29-2022 RBC (Bld) [#/Vol] 4.82 10*6/uL 3.90-5.60 [facility] Serum or plasma anion gap de terminationOrdered By: Israel Escamilla on 10-29-2022 Anion gap [Moles/Vol] 8.1 mmol/L 6.0-15.0 [facility] Serum or plasma high density lipoprotein (HDL) cholesterol measurementOrdered By: Israel Escamilla on 10-29-2022 Cholesterol in HDL [Mass/Vol] 45 mg/dL 29-71 [facility] Comment on above: HDL CHOL ATP-III CLA SSIFICATION Cardiovascular RiskHDL > or equal to 60 mg/dL LOWHDL < 40 mg/dL HIGH Serum or plasma total choles terol/high density lipoprotein (HDL) cholesterol mass ratOrdered By: Israel Escamilla on 10-29-2022 Cholesterol.total/Margie sterol in HDL [Mass ratio] 3.7 {ratio} <5.0 [facility] Sodium [Moles/volume] in Ser um or PlasmaOrdered By: Israel Escamilla on 10-29-2022 Sodium [Moles/Vol] 141 mmol/L 136-145 [facility] Triglyceride [Mass/volume] i n Serum or PlasmaOrdered By: Israel Escamilla on 10-29-2022 Triglyceride [Mass/Vol] 174 mg/dL 0-149 F [facility] Comment on above: TRIG ATP III CLASSIF ICATIONTRIG less than 150 mg/dL NormalTRIG 150-199 mg/dL Borderline highTRIG 200-500 mg/dL High TRIG greater than 500 mg/dL Very highStandard traceable to the Center for Disease Conrtrol and Prevention (CDC) test method. Urea nitrogen [Mass/volume] in Serum or PlasmaOrdered By: Israel Escamilla on 10-29-2022 Urea nitrogen [Mass/Vol] 14 mg/dL 7-25 [facility] WBC Auto (Bld) [#/Vol]Ordere d By: Israel Escamilla on 10-29-2022 WBC (Bld) [#/Vol] 6.4 10*3/uL 4.1-10.5 [facility] Office Visit (Cardiology)on 09-30-2022 Follow-up visit Diagnoses/Problems [...] Aminotransferase, Serum; Status:Active - Retrospective Authorization; Requested for:28Oct2022; AST; Status:Active - Retrospective Authorization; Requested for:28Oct2022; [...] we can help. You may also call 0-100-WXJW-NOW for free resources and assistance.; Status:Complete - [...] after having a watchman's device implanted at [facility] 2022 with no complications. When his medication [...] History Pr (more content not included)... Normal [employer] Tobacco Screening.on 023 Adult depression screening assessment No -[facility] [address] DO Work Phone: Fall risk assessment a) No falls within the last year [facility] [address] DO Work Phone: Tobacco use status CPHS a) Yes M -[facility] [address] DO Work Phone: Tobacco Screening. Yes [facility] [address] DO Work Phone: Glucose Glucometer (BldC) [M ass/Vol]Ordered By: Consuelo Johnson on 09-03-2022 Glucose [Mass/Vol] 112 mg/dL [facility] Comment on above: Random Glucose Refer ence Range is dependent on time and content of last meal. Glucose of more than 200 mg/dL in a nonstressed, ambulatory subject supports the diagnosis of Diabetes Mellitus. No Panel InformationOrdered By: Consuelo Johnson on 09-03-2022 Bedside Glucose Comment Glu2: cleaned meter [facility] CT Watchman Full Contraston 08-25-2022 CT Watchman Full Contrast Normal [facility]-Cardiolog y-[facility] [address] [place] Work Phone: Echocardiogramon 08-25-2022 Echocardiography [facility] [address] [place] [address] and TRANSTHORACIC ECHOCARDIOGRAM REPORT Patient Name: SEN GARCIA Reading Physician: [id number] Brent Mendez MD Study Date: 08/25/2022 Referring BRUCE WOLF Physician: MRN/PID: [id number] PCP: Accession/Order#: [id number] [facility] Cath Location: Lab Date of : 1950 Fellow: Gender: M Nurse: Admit Date: 08/25/2022 Packaging Coordinator: Massiel La RDCS Admission Status: Inpatient - Time Additional Staff: Critical Height: 170.00 cm [facility] [employer] [facility] Weight: 85.00 kg Study Type: Echocardiogram BSA: 1.97 m2 Diagnosis/ICD: I48.91-Unspecified atrial fibrillation Indication: S/P LAAO Procedure/CPT: Echo Limited-06864 Patient History: Pertinent History: CAD, COPD, A-Fib [...] systolic function is normal. QUANTITATIVE DATA SUMMARY: [id number] Brent Mendez MD Electronically signed on 08/25/2022 at 4:25:12 PM Final Normal [facility] Echocardiography [facility] [address] [place] [address] and TRANSTHORACIC ECHOCARDIOGRAM REPORT Patient Name: SEN GARCIA Reading Physician: [id number] Brent Mendez MD Study Date: 08/25/2022 Referring BRUCE WOLF Physician: MRN/PID: [id number] PCP: Accession/Order#: [id number] [facility] [employer] Location: Date of : 1950 Fellow: Gender: M Nurse: Admit Date: Packaging Coordinator: Michaela Marsh [facility] Admission Status: Inpatient - Additional Staff: Routine Height: 170.18 cm CC Report to: Weight: 85.28 kg Study Type: Echocardiogram BSA: 1.97 m2 Diagnosis/ICD: Z01.810-Encounter for preprocedural cardiovascular examination Indication: Pre LAAO Procedure/CPT: Echo Limited-28253 Study Detail: The following Echo studies were [...] a trivial pericardial effusion. QUANTITATIVE DATA SUMMARY: [id number] Brent Mendez MD Electronically signed on 08/25/2022 at 4:26:29 PM Final (Updated) Normal [facility] Electrocardiogram 12 Leadon 08-25-2022 Electrocardiogram 12 Lead Ventricular Rate 86 Atrial Rate 86 P-R Interval 160 QRS Duration 106 Q-T Interval 378 QTC Calculation(Bazett) 452 P Chrisman 81 R Chrisman -71 T Chrisman 69 QRS Count 15 Q Onset 209 P Onset 129 P Offset 187 T Offset 398 QTC [place]ericia 426 Diagnosis Class Abnormal Diagnosis Normal sinus rhythm Left anterior fascicular block Abnormal ECG No previous ECGs available Confirmed by Jamin Landis ([id number]) on 08/31/2022 3:58:37 PM Normal [facility] GLUCOSE-POCTon 08-25-2022 Glucose [Mass/Vol] 97 mg/dL Normal 74 - 99 [facility] Comment on above: Performed By: #### G JOSSELIN ####[id number] [place] [address] LAAC-Left Atrial Appendage C losureon 08-25-2022 LAAC-Left Atrial Appendage Closure [facility] [employer], [address] [place] [address] Cardiovascular Catheterization Report Patient Name: SEN Goodman KRISTINE Performing Physician: [id number] Katia Alex MD Study Date: 08/25/2022 Verifying Physician: [id number] Alex MD MRN/PID: [id number] [employer] Supervisor/Co-scrub: Accession/Order#: [id number] Fellow: [id number] Eloisa Fallon MD Date of : 1950 Fellow: Gender: M Referring Physician: KATIA ALEX Admit Date: Referring Physician: lenore Surgeon: Referring Physician: [id number] Israel Escamilla MD, [facility] Study: LAAC-Left Atrial Appendage Closure Procedure Description [...] ICE guidance, transseptal puncture was with a Vulcan needle, accessing the left atrium. The transseptal tract was then dilated with a Watchman Fixed Curve access sheath and the ICE probe was advanced through the dilated tract into the left atrium. Next, a 6 Latvian angled pigtail was advanced through the delivery [...] Name Duty + + + Katia Alex MD, MD 1 + + + Bailey Obrien RN PROC CIRC 1 + + + Randy Saleh RN PROC CIRC 2 + + + Krishan Pendleton RN PROC NURSE 1 + + + Stephanie Correa PROC HERBICIDE SERVICE SALES REPRESENTATIVE 1 + + + Eloisa Fallon MD [...] {4F Sheaths} [employer] 4fr x 10cm BHUMI Mini Access Kit - Qty: 2 Each Part #: [id number] + + + 08/25/2022 1:09:21 PM {7F [...] + 08/25/2022 1:09:52 PM {6Fr C Catheters} [employer] 6 Fr [id number] Impulse x 100cm - Qty: 1 Each Part #: [id number] + + + 08/25/2022 1:10:03 PM {Diagnostic Wires} [employer] .035mm x 145cm Fixed core - Qty: 1 Each Part #: [id number] + + + 08/25/2022 1:10:06 PM {Closure Devices} CARDIVA 6-10 Fr Vascade MVP Venous Vascular Closure System - Qty: 2 Each Part #: 800 (more content not included)... Normal [facility] Laboratory - Chemistry and C hemistry - challengeon 08-25-2022 Glucose [Mass/Vol] 97 mg/dL 74 - 99 [facility] [address] [place] Work Phone: No Panel Informationon 08-25 [facility] [address] [place] Work Phone: [email or web address]?PatientID=[email or web address] [id number]&Date= 3&Time=10%3a00%3a35%3a 00&TestType=ECG&Site=1 &OutputType=PDF&Ext=PD F [facility] [address] [place] Work Phone: [phone] Normal sinus rhythm [facility]diolog [facility] [place] Work Phone: [phone] Abnormal [facility] [place] Work Phone: [phone] [facility] [place] Work Phone: [phone] [facility] [place] Work Phone: [phone] [facility] [place] Work Phone: [phone] [facility] [place] Work Phone: [phone] [facility] [place] Work Phone: [phone] [facility] [place] Work Phone: [phone] [facility] [place] Work Phone: [phone] [facility] [place] Work Phone: [phone] [facility] [place] Work Phone: [phone] [facility] [place] Work Phone: [phone] [facility] [place] Work Phone: [phone] [facility] [place] Work Phone: [phone] [facility] [address] [place] Work Phone: [phone] [facility] [address] [place] Work Phone: Order Reconciliationon 08-25 [...] Needed ferrous sulfate 325 mg (65 mg nome (more content not included)... Normal [facility] CT WATCHMAN FULL CONTRAST on 08-25-[address] WATCHMAN FULL CONTRAST Patient Name: SEN GARCIA STUDY: TH CT WATCHMAN FULL CONTRAST; 08/25/2022 9:43 am INDICATION: pre procedure FIDELIA sizing and thrombus detection I48.0: Paroxysmal atrial fibrillation. COMPARISON: None. ACCESSION NUMBER(S): [id number] ORDERING CLINICIAN: KATIA ALEX TECHNIQUE: Using multi detector CT technology,axial imaging with prospective gating was performed of the chest following the intravenous administration of contrast material. A low-osmolar contrast agent was used ( 70 milliliterOMNIPAQUE 350). Next, the imaging was repeated with prospective gating after 10 sec delay as per [facility] protocol. Also, patient received 500 mL of [...] the fossa ovalis without gross evidence of [id number] shunting. INTERVENTRICULAR SEPTUM: Intact. AORTIC VALVE: The [...] Electronically signed by: Rashaad SOLORZANO MD Normal [facility] Discharge [id number] Discharge Profile2 Discharge Orders: Anticipated Discharge Date: Anticipated Discharge [id number] Problem List: Medical History: Presence of Watchman [...] 24 hours (diarrhea). Any new concerning symptoms. [employer] Interventional: Patient Instructions, Next 24 hours: DO [...] have any concerns, you may contact the [employer] or if any of these symptoms become excessive, contact your regulator inspector or go to the emergency room. No [...] significant abnormal lab values PCP: Dr. 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 Escamilla I was asked by Dr. [...] occasion. Pa (more content not included)... Normal [facility] BASIC METABOLIC PANELon 03-0 Anion gap [Moles/Vol] 10 mmol/L Normal 10 - 20 [facility] Comment on above: Performed By: #### B MP #### [address] [id number] Calcium [Mass/Vol] 9.3 mg/dL Normal 8.6 - 10.3 [facility] Comment on above: Performed By: #### B MP #### [address] [id number] Chloride [Moles/Vol] 103 mmol/L Normal 98 - 107 [facility] Comment on above: Performed By: #### B MP #### [address] [id number] Creatinine [Mass/Vol] 0.71 mg/dL Normal 0.50 - 1.30 [facility] Comment on above: Performed By: #### B MP #### [address] [id number] eGFR MALE >90 Normal >90 [facility] Comment on above: Result Comment: CALC ULATIONS OF ESTIMATED GFR ARE PERFORMED USING THE 2020 CKD-EPI STUDY REFIT EQUATION WITHOUT THE RACE VARIABLE FOR THE IDMS-TRACEABLE CREATININE METHODS. https://jasn.asnjournals.org/content/early//ASN.2020 061918 Performed By: #### B MP #### [address] [id number] Glucose [Mass/Vol] 98 mg/dL Normal 74 - 99 [facility] Comment on above: Performed By: #### B MP #### [address] [id number] HCO3 (Bld) [Moles/Vol] 32 mmol/L Normal 21 - 32 [facility] Comment on above: Performed By: #### B MP #### [address] [id number] Potassium [Moles/Vol] 4.4 mmol/L Normal 3.5 - 5.3 [facility] Comment on above: Performed By: #### B MP #### [address] [id number] Sodium [Moles/Vol] 141 mmol/L Normal 136 - 145 [facility] Comment on above: Performed By: #### B MP #### [address] [id number] Urea nitrogen [Mass/Vol] 12 mg/dL Normal 6 - 23 [facility] Comment on above: Performed By: #### B MP #### [address] [id number] CBCon 08-05-2022 Erythrocyte distribution width (RBC) [Ratio] 13.6 % Normal 11.5 - 14.5 [facility] Comment on above: Performed By: #### C BC ####[address] [id number] Hematocrit (Bld) [Volume fraction] 44.8 % Normal 41.0 - 52.0 [facility] Comment on above: Performed By: #### C BC ####[address] [place], [place] [id number] Hemoglobin (Bld) [Mass/Vol] 14.1 g/dL Normal 13.5 - 17.5 [facility] Comment on above: Performed By: #### C BC ####[address] [id number] MCHC (RBC) [Mass/Vol] 31.5 g/dL Low 32.0 - 36.0 [facility] Comment on above: Performed By: #### C BC ####[address] [place], [place] [id number] MCV (RBC) [Entitic vol] 97 fL Normal 80 - 100 [facility] Comment on above: Performed By: #### C BC ####[address] [id number] Platelets (Bld) [#/Vol] 131 10*3/uL Low 150 - 450 [facility] Comment on above: Performed By: #### C BC ####[address] [id number] RBC 4.62 x10E12/L Normal 4.50 - 5.90 [facility] Comment on above: Performed By: #### C BC ####[address] [id number] WBC (Bld) [#/Vol] 6.2 10*3/uL Normal 4.4 - 11.3 [facility] Comment on above: Performed By: #### C BC ####[address] [id number] Laboratory - Chemistry and C hemistry - challengeon 08-05-2022 Anion gap [Moles/Vol] 10 mmol/L 10 - 20 [facility]- Cardiolog [facility] [address] [place] Work Phone: Calcium [Mass/Vol] 9.3 mg/dL 8.6 - 10.3 [facility] [address] [place] Work Phone: [phone] Chloride [Moles/Vol] 103 mmol/L 98 - 107 [facility] ardiolog [facility] [address] [place] Work Phone: [phone] CO2 [Moles/Vol] 32 mmol/L 21 - 32 [facility]Cardio log [facility] [address] [place] Work Phone: [phone] Creatinine [Mass/Vol] 0.71 mg/dL See Below [facility] [address] [place] Work Phone: Comment on above: Reference Range: 0.5 0 - 1.30 Glucose [Mass/Vol] 98 mg/dL 74 - 99 [facility] [address] [place] Work Phone: [phone] Potassium [Moles/Vol] 4.4 mmol/L 3.5 - 5.3 [facility] [address] [place] Work Phone: [phone] Sodium [Moles/Vol] 141 mmol/L 136 - 145 [facility] [address] [place] Work Phone: Urea nitrogen [Mass/Vol] 12 mg/dL 6 - 23 [facility] [address] [place] Work Phone: Laboratory - Hematology and Cell countson 08-05-2022 Erythrocyte distribution width (RBC) [Ratio] 13.6 % See Below [facility] [address] [place] Work Phone: Comment on above: Reference Range: 11. 5 - 14.5 Hematocrit (Bld) [Volume fraction] 44.8 % See Below [facility] [address] [place] Work Phone: Comment on above: Reference Range: 41. 0 - 52.0 Hemoglobin (Bld) [Mass/Vol] 14.1 g/dL See Below [facility] [address] [place] Work Phone: Comment on above: Reference Range: 13. 5 - 17.5 MCHC (RBC) [Mass/Vol] 31.5 g/dL below low threshold See Below [facility] [address] [place] Work Phone: Comment on above: Reference Range: 32. 0 - 36.0 MCV (RBC) [Entitic vol] 97 fL 80 - 100 M [facility] [address] [place] Work Phone: Platelets (Bld) [#/Vol] 131 10*3/uL below lo w threshold 150 - 450 [facility] [address] [place] Work Phone: RBC (Bld) [#/Vol] 4.62 {x10E12/L} See Below [facility] -[facility]iolog [facility] [address] [place] Work Phone: Comment on above: Reference Range: 4.5 0 - 5.90 WBC (Bld) [#/Vol] 6.2 10*3/uL 4.4 - 11.3 [facility] diolog [facility] [address] [place] Work Phone: No Panel Informationon 08-05 >90 >90 [facility]iolog [facility] [address] [place] Work Phone: Comment on above: CALCULATIONS OF YASIR MATED GFR ARE PERFORMED USING THE 2020 CKD-EPI STUDY REFIT EQUATION WITHOUT THE RACE VARIABLE FOR THE IDMS-TRACEABLE CREATININE METHODS.https://jasn.asnjournals.org/content// ASN.6565426751 Office Visit (Cardiology)on 08-05-2022 Follow-up visit Diagnoses/Problems Assessed Paroxysmal atrial fibrillation (427.31) (I48.0) Chief Complaint SEN REDMONDKEEVER is being seen for a cardiovascular evaluation . LAAO. History of Present Illness PCP: Dr. 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 Escamilla I was asked by Dr. [...] MG Oral TabletTake 1 tablet twice daily Picher 7.5-325 MG TABSTAKE 1 TABLET EVERY 6 [...] nocturnal d (more content not included)... Normal [employer] Tobacco Screening.on 023 Fall risk assessment a) No falls within the last year [facility]olog [facility] [employer] [place] Work Phone: Tobacco use status CPHS a) Yes M G-Cardiolog [facility] [employer] [place] Work Phone: Absolute reticulocyte countO rdered By: Mellissa Padilla on 08-04-2022 Reticulocytes (Bld) [#/Vol] 0.045 10*6/uL 0.024-0.084 [facility] Alanine aminotransferase [En zymatic activity/volume] in Serum or PlasmaOrdered By: Mellissa Padilla on 08-04-2022 ALT [Catalytic activity/Vol] 12 U/L 7-52 [facility] Albumin [Mass/volume] in Ser um or Plasma by Bromocresol green (BCG) dye binding methoOrdered By: Mellissa Padilla on 08-04-2022 Albumin BCG dye [Mass/Vol] 4.5 g/dL 3.5-5.7 [facility] Alkaline phosphatase [Enzyma tic activity/volume] in Serum or PlasmaOrdered By: Mellissa Padilla on 08-04-2022 ALP [Catalytic activity/Vol] 52 U/L 34-104 [facility] Aspartate aminotransferase [ Enzymatic activity/volume] in Serum or PlasmaOrdered By: Mellissa Padilla on 08-04-2022 AST [Catalytic activity/Vol] 17 U/L 13-39 [facility] Basophils Auto (Bld) [#/Vol] Ordered By: Mellissa Padilla on 08-04-2022 Basophils (Bld) [#/Vol] 0.0 10*3/uL 0.0-0.2 [facility] Basophils/100 WBC Auto (Bld) Ordered By: Mellissa Padilla on 08-04-2022 Basophils/100 WBC (Bld) 0.6 % . F [facility] Bilirubin.total [Mass/volume ] in Serum or PlasmaOrdered By: Mellissa Padilla on 08-04-2022 Bilirubin [Mass/Vol] 0.4 mg/dL 0.3-1.0 [facility] Calcium [Mass/volume] in Ser um or PlasmaOrdered By: Mellissa Padilla on 08-04-2022 Calcium [Mass/Vol] 9.6 mg/dL 8.6-10.3 [facility] Carbon dioxide, total [Moles /volume] in Serum or PlasmaOrdered By: Mellissa Padilla on 08-04-2022 CO2 [Moles/Vol] 29.9 mmol/L 21.0-31.0 [facility] Chloride [Moles/volume] in S rodo or PlasmaOrdered By: Mellissa Padilla on 08-04-2022 Chloride [Moles/Vol] 104 mmol/L 98-107 [facility] Creatinine [Mass/volume] in Serum or PlasmaOrdered By: Mellissa Padilla on 08-04-2022 Creatinine [Mass/Vol] 0.72 mg/dL 0.70-1.30 [facility] Eosinophils Auto (Bld) [#/Vo l]Ordered By: Mellissa Padilla on 08-04-2022 Eosinophils (Bld) [#/Vol] 0.1 10*3/uL 0.0-0.45 [facility] Eosinophils/100 WBC Auto (Bl d)Ordered By: Mellissa Padilla on 08-04-2022 Eosinophils/100 WBC (Bld) 1.0 % . [facility] Erythrocyte distribution wid th Auto (RBC) [Ratio]Ordered By: Mellissa Padilla on 08-04-2022 Erythrocyte distribution width (RBC) [Ratio] 15.3 % 12.0-14.8 [facility] Ferritin [Mass/volume] in Se rum or PlasmaOrdered By: Mellissa Padilla on 08-04-2022 Ferritin [Mass/Vol] 29.7 ng/mL 23.9-336.2 [facility] Folate [Mass/volume] in Seru m or PlasmaOrdered By: Mellissa Padilla on 08-04-2022 Folate [Mass/Vol] ng/mL >5.9 [facility] Comment on above: Folate reference ran ge: >5.9 ng/mlThe WHO technical consultation on folate and vitamin [id number] has determined that folate concentrations lessthan 4 ng/ml are considered deficient. Globulin Calc (S) [Mass/Vol] Ordered By: Mellissa Padilla on 08-04-2022 Globulin (S) [Mass/Vol] 2.2 g/dL [facility] Glucose [Mass/volume] in Ser um or PlasmaOrdered By: Mellissa Padilla on 08-04-2022 Glucose [Mass/Vol] 108 mg/dL 74-109 [facility] Comment on above: ADA recommended refe rence rangeRandom Glucose Reference Range is dependent on time and content of last meal. Glucose of more than 200 mg/dL in a nonstressed, ambulatory subject supports the diagnosis of Diabetes Mellitus. Haptoglobin [Mass/volume] in Serum or PlasmaOrdered By: Mellissa Padilla on 08-04-2022 Haptoglobin [Mass/Vol] 96 mg/dL 37-246 [facility] Hematocrit Auto (Bld) [Volum e fraction]Ordered By: Mellissa Padilla on 08-04-2022 Hematocrit (Bld) [Volume fraction] 44.2 % 38.8-50.0 [facility] Hemoglobin [Mass/volume] in BloodOrdered By: Mellissa Padilla on 08-04-2022 Hemoglobin (Bld) [Mass/Vol] 14.6 g/dL 13.0-17.0 [facility] Iron [Mass/volume] in Serum or PlasmaOrdered By: Mellissa Padilla on 08-04-2022 Iron [Mass/Vol] 75 ug/dL 50-212 [facility] Iron binding capacity [Mass/ volume] in Serum or PlasmaOrdered By: Mellissa Padilla on 08-04-2022 Iron binding capacity [Mass/Vol] 402 ug/dL 255-450 [facility] Iron saturation [Mass Fracti on] in Serum or PlasmaOrdered By: Mellissa Padilla on 08-04-2022 Iron saturation [Mass fraction] 18.7 % 20-50 [facility] Laboratory - Chemistry and C hemistry - challengeOrdered By: Mellissa Padilla on 08-04-2022 GFR/1.73 sq M.predicted MDRD (S/P/Bld) [Vol rate/Area] mL/min/{1.73_m2} [facility] Lactate dehydrogenase [Enzym atic activity/volume] in Serum or Plasma by Lactate to pyOrdered By: Mellissa Padilla on 08-04-2022 LDH Lactate to pyruvate reaction [Catalytic activity/Vol] 172 U/L 140-271 [facility] Leukocytes [#/volume] correc chivo for nucleated erythrocytes in Blood by Automated counOrdered By: Mellissa Padilla on 08-04-2022 WBC corrected for nucl RBC Auto (Bld) [#/Vol] 5.7 10*3/uL 4.1-10.5 [facility] Lymphocytes Auto (Bld) [#/Vo l]Ordered By: Mellissa Padilla on 08-04-2022 Lymphocytes (Bld) [#/Vol] 1.7 10*3/uL 1.00-4.8 [facility] Lymphocytes/100 WBC Auto (Bl d)Ordered By: Mellissa Padilla on 08-04-2022 Lymphocytes/100 WBC (Bld) 29.4 % . [facility] MCH Auto (RBC) [Entitic mass ]Ordered By: Mellissa Padilla on 08-04-2022 MCH (RBC) [Entitic mass] 30.4 pg 27.5-35.2 [facility] MCHC Auto (RBC) [Mass/Vol]Or dered By: Mellissa Padilla on 08-04-2022 MCHC (RBC) [Mass/Vol] 33.1 g/dL 32.5-35.6 [facility] MCV Auto (RBC) [Entitic vol] Ordered By: Mellissa Padilla on 08-04-2022 MCV (RBC) [Entitic vol] 91.8 fL 83.5-101 F [facility] Monocytes Auto (Bld) [#/Vol] Ordered By: Mellissa Padilla on 08-04-2022 Monocytes (Bld) [#/Vol] 0.5 10*3/uL 0.0-0.8 [facility] Monocytes/100 WBC Auto (Bld) Ordered By: Mellissa Padilla on 08-04-2022 Monocytes/100 WBC (Bld) 9.1 % . F [facility] Neutrophils Auto (Bld) [#/Vo l]Ordered By: Mellissa Padilla on 08-04-2022 Neutrophils (Bld) [#/Vol] 3.4 10*3/uL 1.8-7.7 [facility] Neutrophils/100 WBC Auto (Bl d)Ordered By: Mellissa Padilla on 08-04-2022 Neutrophils/100 WBC (Bld) 59.9 % . [facility] No Panel InformationOrdered By: Mellissa Padilla on 08-04-2022 Pharmacy Creatinine Clearance (Chem 86.20 [facility] Nucleated erythrocytes [Pres ence] in Blood by Automated countOrdered By: Mellissa Padilla on 08-04-2022 Nucleated RBC Auto Ql (Bld) 0.2 /100{WBC} 0-0.5 [facility] Platelet mean volume Auto (B ld) [Entitic vol]Ordered By: Mellissa Padilla on 08-04-2022 Platelet mean volume (Bld) [Entitic vol] 9.8 fL 6.6-10.1 [facility] Platelets Auto (Bld) [#/Vol] Ordered By: Mellissa Padilla on 08-04-2022 Platelets (Bld) [#/Vol] 121 10*3/uL 150-450 [facility] Potassium [Moles/volume] in Serum or PlasmaOrdered By: Mellissa Padilla on 08-04-2022 Potassium [Moles/Vol] 4.4 mmol/L 3.5-5.1 [facility] Protein [Mass/volume] in Ser um or PlasmaOrdered By: Mellissa Padilla on 08-04-2022 Protein [Mass/Vol] 6.7 g/dL 6.4-8.9 [facility] RBC Auto (Bld) [#/Vol]Ordere d By: Mellissa Padilla on 08-04-2022 RBC (Bld) [#/Vol] 4.82 10*6/uL 3.90-5.60 [facility] Reticulocytes/100 RBC Auto ( Bld)Ordered By: Mellissa Padilla on 08-04-2022 Reticulocytes/100 RBC (Bld) 0.9 % 0.5-1.5 [facility] Serum or plasma albumin/glob ulin mass ratioOrdered By: Mellissa Padilla on 08-04-2022 Albumin/Globulin [Mass ratio] 2.0 {ratio} [facility] Serum or plasma anion gap de terminationOrdered By: Mellissa Padilla on 08-04-2022 Anion gap [Moles/Vol] 13.5 mmol/L 6.0-15.0 [facility] Sodium [Moles/volume] in Ser um or PlasmaOrdered By: Mellissa Padilla on 08-04-2022 Sodium [Moles/Vol] 143 mmol/L 136-145 [facility] Transferrin [Mass/volume] in Serum or PlasmaOrdered By: Mellissa Padilla on 08-04-2022 Transferrin [Mass/Vol] 287 mg/dL 203-362 [facility] Urea nitrogen [Mass/volume] in Serum or PlasmaOrdered By: Mellissa Padilla on 08-04-2022 Urea nitrogen [Mass/Vol] 11 mg/dL 7-25 [facility] Vitamin B12 ser/plasOrdered By: Mellissa Padilla on 08-04-2022 Cobalamin (Vitamin B12) [Mass/Vol] 372 pg/mL 180-914 [facility] WBC Auto (Bld) [#/Vol]Ordere d By: Mellissa Padilla on 08-04-2022 WBC (Bld) [#/Vol] 5.7 10*3/uL 4.1-10.5 [facility] CBC AUTO DIFFon 07-02-2022 BASO # 0.1 103/ul Normal 0.0-0.1 [facility] Comment on above: Performed By: #### B YISEL, CMADM #### [facility] [address] [address] [address] Tori Mills Basophils/100 WBC (Bld) 0.9 % Normal 0.2-2.0 [facility] Comment on above: Performed By: #### B YISEL, CMADM #### [facility] [address] [address] [address] Tori Mills EO # 0.1 103/ul Normal 0.0-0.7 [facility] Comment on above: Performed By: #### B YISEL, CMADM #### [facility] [address] [address] [address] Tori Mills Eosinophils/100 WBC (Bld) 1.4 % Normal 0.9-7.0 [facility] Comment on above: Performed By: #### B YISEL, CMADM #### [facility] [address] [address] [address] Tori Mills Erythrocyte distribution width (RBC) [Ratio] 15.7 % Critically high 11.0-15.0 [facility] Comment on above: Performed By: #### B YISEL, CMADM #### [facility] [address] [place] [address] Dr. Tori Mills Hematocrit (Bld) [Volume fraction] 33.5 % Critically low 42.0-54.0 [facility] Comment on above: Performed By: #### B YISEL, CMADM #### [facility] [address] [address] [address] Tori Mills Hemoglobin (Bld) [Mass/Vol] 11.3 g/dL Critically low 14.0-18.0 [facility] Comment on above: Performed By: #### B YISEL, CMADM #### [facility] [address] [address] [address] Tori Mills IG # 0.03 10e3/ul Normal 0.00-0.03 [facility] Comment on above: Performed By: #### B MP, CMADM #### [facility] [address] [address] [address] Tori Mills IG % 0.5 % Normal 0.0-0.5 [facility] Comment on above: Performed By: #### B MP, CMADM #### [facility] [address] [address] [address] Tori Mills LYMPH # 1.6 103/ul Normal 1.2-3.8 [facility] Comment on above: Performed By: #### B MP, CMADM #### [facility] [address] [place] [address] Dr. Tori Mills Lymphocytes/100 WBC (Bld) 27.6 % Normal 20.5-60.0 [facility] Comment on above: Performed By: #### B MP, CMADM #### [facility] [address] [place] [address] Dr. Tori Mills MANUAL DIFF REQ NO Normal [facility] Comment on above: Performed By: #### B MP, CMADM #### [facility] [address] [place] [address] Dr. Tori Mills MCH (RBC) [Entitic mass] 29.1 pg Normal 25.9-34.0 [facility] Comment on above: Performed By: #### B MP, CMADM #### [facility] [address] [place] [address] Dr. Tori Mills MCHC (RBC) [Mass/Vol] 33.7 g/dL Normal 29.9-35.2 [facility] Comment on above: Performed By: #### B MP, CMADM #### [facility] [address] [place] [address] Dr. Tori Mills MCV (RBC) [Entitic vol] 86.3 fL Normal 80.0-94.0 [facility] Comment on above: Performed By: #### B MP, CMADM #### [facility] [address] [place] [address] Dr. Tori Mills MONO # 0.6 103/ul Normal 0.3-0.8 [facility] Comment on above: Performed By: #### B YISEL, SAMARIA #### [facility] [address] [place] [address] Dr. Tori Mills Monocytes/100 WBC (Bld) 9.5 % Normal 1.7-12.0 [facility] Comment on above: Performed By: #### B YISEL, CMADM #### [facility] [address] [place] [address] Dr. Tori Mills NEUT # 3.5 103/ul Normal 1.4-6.5 [facility] Comment on above: Performed By: #### B WILI MORILLODM #### [facility] [address] [place] [address] Dr. Tori Mills Neutrophils/100 WBC (Bld) 60.1 % Normal 43.0-75.0 [facility] Comment on above: Performed By: #### B WILI MORILLODM #### [facility] [address] [place] [address] Dr. Tori Mills Platelet mean volume (Bld) [Entitic vol] 11.0 fL Normal 9.5-13.5 [facility] Comment on above: Performed By: #### B SAMARIA MORILLO #### [facility] [address] [place] [address] Dr. Tori Mills PLT 175 103/ul Normal 150-450 [facility] Comment on above: Performed By: #### B WILI MORILLODM #### [facility] [address] [place] [address] Dr. Tori Mills RBC 3.88 106/ul Critically low 4.70-6.10 [facility] Comment on above: Performed By: #### B WILI MORILLODM #### [facility] [address] [place] [address] Dr. Tori Mills WBC 5.8 103/ul Normal 4.0-11.0 [facility] Comment on above: Performed By: #### B WILI MORILLODM #### [facility] [address] [place] [address] Dr. Tori Mills GLYCOHEMOGLOBIN A1Con 2022 ADA RECOMMENDATION SEE BELOW Normal [facility] Comment on above: Result Comment: ADA RECOMMENDED LIMIT 4.0 - 6.0 ADA THERAPEUTIC TARGET < 7.0 ACTION SUGGESTED > 7.0 Performed By: #### P T #### [facility] [address] [address] [address] Tori Mills Glucose [Mass/Vol] 91 mg/dL Normal [facility] Comment on above: Performed By: #### P T #### [facility] [facility] [address] [address] [address] Tori Mills HbA1c (Bld) [Mass fraction] 4.8 % Normal 4.5-6.2 [facility] Comment on above: Performed By: #### P T #### [facility] [address] [place] [address] Dr. Tori Mills LIPID PROFILEon 07-02-2022 CHOL-HDL RATIO NORM SEE BELOW Normal [facility] Comment on above: Result Comment: 3.3 - 4.4 LOW RISK 4.4 - 7.1 AVERAGE RISK 7.1 - 11.0 MODERATE RISK >11.0 HIGH RISK Performed By: #### P T #### [facility] [address] [place] [address] Dr. Tori Mills Cholesterol [Mass/Vol] 148 mg/dL Normal <=200 Th [facility] Comment on above: Performed By: #### P T #### [facility] [address] [place] [address] Dr. Tori Mills Cholesterol in HDL [Mass/Vol] 48 mg/dL Normal 40-60 [facility] Comment on above: Performed By: #### P T #### [facility] [address] [address] [address] Tori Mills Cholesterol in LDL [Mass/Vol] 65.8 mg/dL Normal [facility] Comment on above: Performed By: #### P T #### [facility] [address] [place] [address] Dr. Tori Mills Cholesterol.total/Margie sterol in HDL [Mass ratio] 3.1 {ratio} Normal [facility] Comment on above: Performed By: #### P T #### [facility] [address] [address] [address] Tori Mills HDL NORMAL > or = 60 mg/dl - LO W CARDIOVASCULAR RISK <40 mg/dl - HIGH CARDIOVASCULAR RISK Normal [facility] Comment on above: Performed By: #### P T #### [facility] [address] [place] [address] Dr. Tori Mills LDL CALC NORMAL SEE BELOW Normal [facility] Comment on above: Result Comment: <100 mg/dl OPTIMAL 100 - 129 mg/dl NEAR OR ABOVE OPTIMAL 130 - 159 mg/dl BORDERLINE HIGH 160 - 189 mg/dl HIGH >190 mg/dl VERY HIGH Performed By: #### P T #### [facility] [address] [place] [address] Dr. Tori Mills Triglyceride [Mass/Vol] 171 mg/dL Critically high <=150 [facility] Comment on above: Performed By: #### P T #### [facility] [address] [place] [address] Dr. Tori Mills VLDL CALC 34.2 mg/dL Normal [facility] Comment on above: Performed By: #### P T #### [facility] [address] [place] [address] Dr. Tori Mills LIVER PROFILEon 07-02-2022 Albumin [Mass/Vol] 3.8 g/dL Normal 3.4-5.0 [facility] Comment on above: Performed By: #### P T #### [facility] [address] [place] [address] Dr. Tori Mills Albumin/Globulin [Mass ratio] 1.2 {ratio} Normal [facility] Comment on above: Performed By: #### P T #### [facility] [address] [place] [address] Dr. Tori Mills ALP [Catalytic activity/Vol] 64 U/L Normal 46-116 [facility] Comment on above: Performed By: #### P T #### [facility] [address] [place] [address] Dr. Tori Mills ALT [Catalytic activity/Vol] 17 U/L Normal 16-63 [facility] Comment on above: Performed By: #### P T #### [facility] [address] [place] [address] Dr. Tori Mills AST [Catalytic activity/Vol] 14 U/L Critically low 15-37 [facility] Comment on above: Performed By: #### P T #### [facility] [address] [place] [address] Dr. Tori Mills BILI, CONJUGATED 0.1 mg/dL Normal 0.0-0.2 [facility] Comment on above: Performed By: #### P T #### [facility] [address] [place] [address] Dr. Tori Mills Bilirubin [Mass/Vol] 0.3 mg/dL Normal 0.2-1.0 [facility] Comment on above: Performed By: #### P T #### [facility] [address] [place] [address] Dr. Tori Mills Globulin (S) [Mass/Vol] 3.2 g/dL Normal T [facility] Comment on above: Performed By: #### P T #### [facility] [address] [place] [address] Dr. Tori Mills Protein [Mass/Vol] 7.0 g/dL Normal 6.4-8.2 [facility] Comment on above: Performed By: #### P T #### [facility] [address] [place] [address] Dr. Tori Mills MICROALBUMIN, RAND URon mALB 7.0 mg/L Normal <=30.0 [facility] Comment on above: Performed By: #### M ALBR #### [facility] [address] [place] [address] Dr. Tori Mills PROF CHEM 8 (BAS METB)on Anion gap [Moles/Vol] 9.9 mmol/L Normal [facility] Comment on above: Performed By: #### B MP, CMADM #### [facility] [address] [place], [place] [id number] Dr. Tori Mills Calcium [Mass/Vol] 9.3 mg/dL Normal 8.5-10.1 [facility] Comment on above: Performed By: #### B YISEL, WILIDM #### [facility] [address] [place] [address] Dr. Tori Mills Chloride [Moles/Vol] 104 mmol/L Normal 98-107 [facility] Comment on above: Performed By: #### B YISEL, CMADM #### [facility] [address] [place] [address] Dr. Tori Mills CO2 [Moles/Vol] 32.2 mmol/L Critically high 21.0-32.0 [facility] Comment on above: Performed By: #### B YISEL, WILIDM #### [facility] [address] [place] [address] Dr. Tori Mills Creatinine [Mass/Vol] 0.69 mg/dL Critically low 0.70-1.30 [facility] Comment on above: Performed By: #### B YISEL, WILIDM #### [facility] [address] [place] [address] Dr. Tori Mills EGFR-AF GIBRALTARIAN >60 Normal >=60 [facility] Comment on above: Performed By: #### B YISEL, WILIDM #### [facility] [address] [place] [address] Dr. Tori Mills EGFR-NON AF GIBRALTARIAN >60 Normal >=60 [facility] Comment on above: Performed By: #### B YISEL, CMADM #### [facility] [address] [place] [address] Dr. Tori Mills Glucose [Mass/Vol] 136 mg/dL Critically high 74-106 [facility] Comment on above: Performed By: #### B YISEL, CMADM #### [facility] [address] [place] [address] Dr. Tori Mills Potassium [Moles/Vol] 4.1 mmol/L Normal 3.5-5.1 [facility] Comment on above: Performed By: #### B YISEL, CMADM #### [facility] [address] [address] [address] Tori Mills Sodium [Moles/Vol] 142 mmol/L Normal 136-145 [facility] Comment on above: Performed By: #### B YISEL, SAMARIA #### [facility] [address] [place] [address] Dr. Tori Mills Urea nitrogen [Mass/Vol] 7.0 mg/dL Normal 7.0-18.0 [facility] Comment on above: Performed By: #### B YISEL, CMADM #### [facility] [address] [place] [address] Dr. Tori Mills Urea nitrogen/Creatinine [Mass ratio] 10.1 mg/mg Normal [facility] Comment on above: Performed By: #### B WILI MORILLODM #### [facility] [address] [place] [address] Dr. Tori Mills CARDIAC ALBINO ADMITon 023 CK [Catalytic activity/Vol] 56 U/L Normal 39-308 [facility] Comment on above: Performed By: #### O BSCRN #### [facility] [address] [place] [address] Dr. Tori Mills CK.MB [Mass/Vol] 0.69 ng/mL Normal <=3.60 [facility] Comment on above: Performed By: #### O BSCRN #### [facility] [address] [place] [address] Dr. Tori Mills HSTROP 8.1 pg/mL Normal 4.0-76.1 [facility] Comment on above: Result Comment: CUT- OFF POINTS HAVE BEEN ESTABLISHED BASED ON THE FOURTH UNIVERSAL DEFINITIONS OF MYOCARDIAL INFARCTION. THE UPPER REFERENCE LIMIT (URL) OF TROPONIN, DEFINED THE 99TH PERCENTILE OF cTnI DISTRIBUTION IN A REFERENCE POPULATION, HAS BEEN CONFIRMED THE DECISION THRESHOLD FOR WI DIAGNOSIS. Performed By: #### O BSCRN #### [facility] [address] [place] [address] Dr. Tori Mills TAMIKO 53 ng/mL Normal 16-96 [facility] Comment on above: Performed By: #### O BSCRN #### [facility] [address] [place] [address] Dr. Tori Mills CBC AUTO DIFFon 06-16-2022 BASO # 0.0 103/ul Normal 0.0-0.1 [facility] Comment on above: Performed By: #### O BSCRN #### [facility] [address] [place] [address] Dr. Tori Mills Basophils/100 WBC (Bld) 0.5 % Normal 0.2-2.0 [facility] Comment on above: Performed By: #### O BSCRN #### [facility] [address] [place] [address] Dr. Tori Mills EO # 0.0 103/ul Normal 0.0-0.7 [facility] Comment on above: Performed By: #### O BSCRN #### [facility] [address] [place] [address] Dr. Tori Mills Eosinophils/100 WBC (Bld) 0.7 % Critically low 0.9-7.0 [facility] Comment on above: Performed By: #### O BSCRN #### [facility] [address] [place] [address] Dr. Tori Mills Erythrocyte distribution width (RBC) [Ratio] 14.8 % Normal 11.0-15.0 [facility] Comment on above: Performed By: #### O BSCRN #### [facility] [address] [place] [address] Dr. Tori Mills Hematocrit (Bld) [Volume fraction] 24.6 % Critically low 42.0-54.0 [facility] Comment on above: Performed By: #### O BSCRN #### [facility] [address] [place] [address] Dr. Tori Mills Hemoglobin (Bld) [Mass/Vol] 8.1 g/dL Critically low 14.0-18.0 [facility] Comment on above: Performed By: #### O BSCRN #### [facility] [address] [place] [address] Dr. Tori Mills IG # 0.02 10e3/ul Normal 0.00-0.03 [facility] Comment on above: Performed By: #### O BSCRN #### [facility] [address] [address] [address] Tori Mills IG % 0.4 % Normal 0.0-0.5 [facility] Comment on above: Performed By: #### O BSCRN #### [facility] [address] [address] [address] Tori Mills LYMPH # 1.5 103/ul Normal 1.2-3.8 [facility] Comment on above: Performed By: #### O BSCRN #### [facility] [address] [address] [address] Tori Mills Lymphocytes/100 WBC (Bld) 26.1 % Normal 20.5-60.0 [facility] Comment on above: Performed By: #### O BSCRN #### [facility] [address] [place] [address] Dr. Tori Mills MANUAL DIFF REQ NO Normal [facility] Comment on above: Performed By: #### O BSCRN #### [facility] [address] [address] [address] Tori Mills MCH (RBC) [Entitic mass] 30.8 pg Normal 25.9-34.0 [facility] Comment on above: Performed By: #### O BSCRN #### [facility] [address] [address] [address] Tori Mills MCHC (RBC) [Mass/Vol] 32.9 g/dL Normal 29.9-35.2 [facility] Comment on above: Performed By: #### O BSCRN #### [facility] [address] [address] [address] Tori Mills MCV (RBC) [Entitic vol] 93.5 fL Normal 80.0-94.0 [facility] Comment on above: Performed By: #### O BSCRN #### [facility] [address] [address] [address] Tori Mills MONO # 0.6 103/ul Normal 0.3-0.8 [facility] Comment on above: Performed By: #### O BSCRN #### [facility] [address] [address] [address] Tori Mills Monocytes/100 WBC (Bld) 10.6 % Normal 1.7-12.0 [facility] Comment on above: Performed By: #### O BSCRN #### [facility] [address] [address] [address] Tori Mills NEUT # 3.4 103/ul Normal 1.4-6.5 [facility] Comment on above: Performed By: #### O BSCRN #### [facility] [address] [place] [address] Dr. Tori Mills Neutrophils/100 WBC (Bld) 61.7 % Normal 43.0-75.0 [facility] Comment on above: Performed By: #### O BSCRN #### [facility] [address] [place] [address] Dr. Tori Mills Platelet mean volume (Bld) [Entitic vol] 11.2 fL Normal 9.5-13.5 [facility] Comment on above: Performed By: #### O BSCRN #### [facility] [address] [place] [address] Dr. Tori Mills PLT 114 103/ul Critically low 150-450 [facility] Comment on above: Performed By: #### O BSCRN #### [facility] [address] [place] [address] Dr. Tori Mills RBC 2.63 106/ul Critically low 4.70-6.10 [facility] Comment on above: Performed By: #### O BSCRN #### [facility] [address] [place] [address] Dr. Tori Mills WBC 5.6 103/ul Normal 4.0-11.0 [facility] Comment on above: Performed By: #### O BSCRN #### [facility] [address] [place] [address] Dr. Tori Mills BASO # 0.0 103/ul Normal 0.0-0.1 [facility] Comment on above: Performed By: #### B YISEL, WILIDM #### [facility] [address] [place] [address] Dr. Tori Mills Basophils/100 WBC (Bld) 0.5 % Normal 0.2-2.0 [facility] Comment on above: Performed By: #### B YISEL, CMADM #### [facility] [address] [place] [address] Dr. Tori Mills EO # 0.1 103/ul Normal 0.0-0.7 [facility] Comment on above: Performed By: #### B YISEL, WILIDM #### [facility] [address] [place] [address] Dr. Tori Mills Eosinophils/100 WBC (Bld) 1.5 % Normal 0.9-7.0 [facility] Comment on above: Performed By: #### B SAMARIA MORILLO #### [facility] [address] [place] [address] Dr. Tori Mills Erythrocyte distribution width (RBC) [Ratio] 14.5 % Normal 11.0-15.0 [facility] Comment on above: Performed By: #### B SAMARIA MORILLO #### [facility] [address] [place] [address] Dr. Tori Mills Hematocrit (Bld) [Volume fraction] 29.4 % Critically low 42.0-54.0 [facility] Comment on above: Performed By: #### B WILI MORILLODM #### [facility] [address] [place] [address] Dr. Tori Mills Hemoglobin (Bld) [Mass/Vol] 9.7 g/dL Critically low 14.0-18.0 [facility] Comment on above: Performed By: #### B WILI MORILLODM #### [facility] [address] [place] [address] Dr. Tori Mills IG # 0.03 10e3/ul Normal 0.00-0.03 [facility] Comment on above: Performed By: #### B SAMARIA MORILLO #### [facility] [address] [place] [address] Dr. Tori Mills IG % 0.4 % Normal 0.0-0.5 [facility] Comment on above: Performed By: #### B SAMARIA MORILLO #### [facility] [address] [place] [address] Dr. Tori Mills LYMPH # 2.0 103/ul Normal 1.2-3.8 [facility] Comment on above: Performed By: #### B SAMARIA MORILLO #### [facility] [address] [place] [address] Dr. Tori Mills Lymphocytes/100 WBC (Bld) 25.5 % Normal 20.5-60.0 [facility] Comment on above: Performed By: #### B SAMARIA MORILLO #### [facility] [address] [place] [address] Dr. Tori Mills MANUAL DIFF REQ NO Normal [facility] Comment on above: Performed By: #### B SAMARIA MORILLO #### [facility] [address] [place] [address] Dr. Tori Mills MCH (RBC) [Entitic mass] 30.5 pg Normal 25.9-34.0 [facility] Comment on above: Performed By: #### B SAMARIA MORILLO #### [facility] [address] [place] [address] Dr. Tori Mills MCHC (RBC) [Mass/Vol] 33.0 g/dL Normal 29.9-35.2 [facility] Comment on above: Performed By: #### B SAMARIA MORILLO #### [facility] [address] [place] [address] Dr. Tori Mills MCV (RBC) [Entitic vol] 92.5 fL Normal 80.0-94.0 [facility] Comment on above: Performed By: #### B SAMARIA MORILLO #### [facility] [address] [place] [address] Dr. Tori Mills MONO # 0.8 103/ul Normal 0.3-0.8 [facility] Comment on above: Performed By: #### B SAMARIA MORILLO #### [facility] [address] [address] [address] Tori Mills Monocytes/100 WBC (Bld) 9.9 % Normal 1.7-12.0 [facility] Comment on above: Performed By: #### B YISEL, CMADM #### [facility] [address] [place] [address] Dr. Tori Mills NEUT # 5.0 103/ul Normal 1.4-6.5 [facility] Comment on above: Performed By: #### B YISEL, CMADM #### [facility] [address] [place] [address] Dr. Tori Mills Neutrophils/100 WBC (Bld) 62.2 % Normal 43.0-75.0 [facility] Comment on above: Performed By: #### B YISEL, WILIDM #### [facility] [address] [place] [address] Dr. Tori Mills Platelet mean volume (Bld) [Entitic vol] 11.4 fL Normal 9.5-13.5 [facility] Comment on above: Performed By: #### B YISEL, WILIDM #### [facility] [address] [place] [address] Dr. Tori Mills PLT 167 103/ul Normal 150-450 [facility] Comment on above: Performed By: #### B YISEL, CMADM #### [facility] [address] [place] [address] Dr. Tori Mills RBC 3.18 106/ul Critically low 4.70-6.10 [facility] Comment on above: Performed By: #### B YISEL, CMADM #### [facility] [address] [place] [address] Dr. Tori Mills WBC 8.0 103/ul Normal 4.0-11.0 [facility] Comment on above: Performed By: #### B YISEL, CMADM #### [facility] [address] [place] [address] ABD/PELV W CONon [...] FESTUS DELVALLE Date: 2022-06-16 14:18 Normal [facility] Covid-19 PCR (CVDTB)on 05-31 SARS-CoV-2 (COVID-19) RNA DREA+probe Ql (Unsp spec) Not detected Normal NOT DETECTED [facility] Comment on above: Result Comment: When diagnostic [...] for this test is supported by the [place] [employer] and [employer]'s declaration that [...] used). Performed By: #### M ALBR #### [facility] [address] [place] [address] Dr. Tori Mills HEMOGLOBINon 06-16-2022 Hemoglobin (Bld) [Mass/Vol] 8.3 g/dL Critically low 14.0-18.0 [facility] Comment on above: Performed By: #### P T #### [facility] [address] [place] [address] Dr. Tori Mills HEMOGLOBIN AND HEMATOCRITon 06-16-2022 Hematocrit (Bld) [Volume fraction] 24.1 % Critically low 42.0-54.0 [facility] Comment on above: Performed By: #### M ALBR #### [facility] [address] [place] [address] Dr. Tori Mills Hemoglobin (Bld) [Mass/Vol] 8.0 g/dL Critically low 14.0-18.0 [facility] Comment on above: Performed By: #### M ALBR #### [facility] [address] [place] [address] Dr. Tori Mills LIPID PROFILEon 06-16-2022 CHOL-HDL RATIO NORM SEE BELOW Normal [facility] Comment on above: Result Comment: 3.3 - 4.4 LOW RISK 4.4 - 7.1 AVERAGE RISK 7.1 - 11.0 MODERATE RISK >11.0 HIGH RISK Performed By: #### B YISEL, WILIDM #### [facility] [address] [address] [address] Tori Mills Cholesterol [Mass/Vol] 162 mg/dL Normal <=200 Th [facility] Comment on above: Performed By: #### B YISEL, CMADM #### [facility] [address] [address] [address] Tori Mills Cholesterol in HDL [Mass/Vol] 49 mg/dL Normal 40-60 [facility] Comment on above: Performed By: #### B YISEL, CMADM #### [facility] [address] [address] [address] Tori Mills Cholesterol in LDL [Mass/Vol] 78.4 mg/dL Normal [facility] Comment on above: Performed By: #### B YISEL, CMADM #### [facility] [address] [address] [address] Tori Mills Cholesterol.total/Margie sterol in HDL [Mass ratio] 3.3 {ratio} Normal [facility] Comment on above: Performed By: #### B YISEL, CMADM #### [facility] [address] [address] [address] Tori Mills HDL NORMAL > or = 60 mg/dl - LO W CARDIOVASCULAR RISK <40 mg/dl - HIGH CARDIOVASCULAR RISK Normal [facility] Comment on above: Performed By: #### B YISEL, CMADM #### [facility] [address] [address] [address] Tori Mills LDL CALC NORMAL SEE BELOW Normal [facility] Comment on above: Result Comment: <100 mg/dl OPTIMAL 100 - 129 mg/dl NEAR OR ABOVE OPTIMAL 130 - 159 mg/dl BORDERLINE HIGH 160 - 189 mg/dl HIGH >190 mg/dl VERY HIGH Performed By: #### B YISEL, CMADM #### [facility] [address] [address] [address] Tori Mills Triglyceride [Mass/Vol] 173 mg/dL Critically high <=150 [facility] Comment on above: Performed By: #### B WILI MORILLODM #### [facility] [address] [place] [address] Dr. Tori Mills VLDL CALC 34.6 mg/dL Normal [facility] Comment on above: Performed By: #### B WILI MORILLODM #### [facility] [address] [place] [address] Dr. Tori Mills MAGNESIUMon 06-16-2022 Magnesium [Mass/Vol] 1.4 mg/dL Critically low 1.8-2.4 [facility] Comment on above: Performed By: #### B SAMARIA MORILLO #### [facility] [address] [place] [address] Dr. Tori Mills POINT OF CARE GLUCOSEon 05-31 Glucose [Mass/Vol] 106 mg/dL Normal 74-106 [facility] Comment on above: Performed By: #### B SAMARIA MORILLO #### [facility] [address] [place] [address] Dr. Tori Mills Glucose [Mass/Vol] 99 mg/dL Normal 74-106 [facility] Comment on above: Performed By: #### B SAMARIA MORILLO #### [facility] [address] [place] [address] Dr. Tori Mills PROF CHEM 8 (BAS METB)on Anion gap [Moles/Vol] 12.3 mmol/L Normal [facility] Comment on above: Performed By: #### O BSCRN #### [facility] [address] [place] [address] Dr. Tori Mills Calcium [Mass/Vol] 8.8 mg/dL Normal 8.5-10.1 [facility] Comment on above: Performed By: #### O BSCRN #### [facility] [address] [place] [address] Dr. Tori Mills Chloride [Moles/Vol] 101 mmol/L Normal 98-107 [facility] Comment on above: Performed By: #### O BSCRN #### [facility] [address] [address] [address] Tori Mills CO2 [Moles/Vol] 31.1 mmol/L Normal 21.0-32.0 [facility] Comment on above: Performed By: #### O BSCRN #### [facility] [address] [address] [address] Tori Mills Creatinine [Mass/Vol] 0.71 mg/dL Normal 0.70-1.30 [facility] Comment on above: Performed By: #### O BSCRN #### [facility] [address] [address] [address] Tori Mills EGFR-AF GIBRALTARIAN >60 Normal >=60 [facility] Comment on above: Performed By: #### O BSCRN #### [facility] [address] [address] [address] Tori Mills EGFR-NON AF GIBRALTARIAN >60 Normal >=60 [facility] Comment on above: Performed By: #### O BSCRN #### [facility] [address] [address] [address] Tori Mills Glucose [Mass/Vol] 138 mg/dL Critically high 74-106 T [facility] Comment on above: Performed By: #### O BSCRN #### [facility] [address] [address] [address] Tori Mills Potassium [Moles/Vol] 3.4 mmol/L Critically low 3.5-5.1 [facility] Comment on above: Performed By: #### O BSCRN #### [facility] [address] [address] [address] Tori Mills Sodium [Moles/Vol] 141 mmol/L Normal 136-145 [facility] Comment on above: Performed By: #### O BSCRN #### [facility] [address] [address] [address] Tori Mills Urea nitrogen [Mass/Vol] 12.0 mg/dL Normal 7.0-18.0 [facility] Comment on above: Performed By: #### O BSCRN #### [facility] [address] [place] [address] Dr. Tori Mills Urea nitrogen/Creatinine [Mass ratio] 16.9 mg/mg Normal [facility] Comment on above: Performed By: #### O BSCRN #### [facility] [address] [place] [address] Dr. Tori Mills PROTIMEon 06-16-2022 INR Coag (PPP) [Relative time] 1.08 {INR} Normal [facility] Comment on above: Performed By: #### B SAMARIA MORILLO #### [facility] [address] [place] [address] Dr. Tori Mills INR GUIDELINES SEE BELOW Normal [facility] Comment on above: Result Comment: FRANCI RED INR: 2.0 - 3.0 CONDITIONS NOT LISTED BELOW 2.5 - 3.5 FOR PROSTHETIC HEART VALVE REPLACEMENT 2.5 - 3.5 RECURRENT THROMBOSIS Performed By: #### B SAMARIA MORILLO #### [facility] [address] [place] [address] Dr. Tori Mills PT Coag (PPP) [Time] 11.4 s Normal 9.0-11.6 [facility] Comment on above: Performed By: #### B SAMARIA MORILLO #### [facility] [address] [place] [address] Dr. Tori Mills TSHon 06-16-2022 TSH 2.263 uIU/mL Normal 0.358-3.740 [facility] Comment on above: Performed By: #### B SAMARIA MORILLO #### [facility] [address] [place] [address] Dr. Tori Mills PRBC LEUKOREDUCEDon 06-15-19 ABO and Rh group Nom (Bld) Cross Match Result Compatible Unit Blood Type O Pos Unit Number [id number] Status Information Transfused Product ID Red Blood Cells Product Code [id number] Cross Match Result Compatible Unit Blood Type O Pos Unit Number [id number] Status Information Transfused Product ID Red Blood Cells Product Code [id number] [facility] Comment on above: Performed By: #### M ALBR #### [facility] [address] [place] [address] Dr. Tori Mills CBC AUTO DIFFon 06-14-2022 BASO # 0.0 103/ul Normal 0.0-0.1 [facility] Comment on above: Performed By: #### M ALBR #### [facility] [address] [place] [address] Dr. Tori Mills Basophils/100 WBC (Bld) 0.6 % Normal 0.2-2.0 [facility] Comment on above: Performed By: #### M ALBR #### [facility] [address] [place] [address] Dr. Tori Mills EO # 0.2 103/ul Normal 0.0-0.7 [facility] Comment on above: Performed By: #### M ALBR #### [facility] [address] [place] [address] Dr. Tori Mills Eosinophils/100 WBC (Bld) 2.5 % Normal 0.9-7.0 [facility] Comment on above: Performed By: #### M ALBR #### [facility] [address] [place] [address] Dr. Tori Mills Erythrocyte distribution width (RBC) [Ratio] 14.6 % Normal 11.0-15.0 [facility] Comment on above: Performed By: #### M ALBR #### [facility] [address] [place] [address] Dr. Tori Mills Hematocrit (Bld) [Volume fraction] 26.7 % Critically low 42.0-54.0 [facility] Comment on above: Performed By: #### M ALBR #### [facility] [address] [place] [address] Dr. Tori Mills Hemoglobin (Bld) [Mass/Vol] 8.5 g/dL Critically low 14.0-18.0 [facility] Comment on above: Performed By: #### M ALBR #### [facility] [address] [place] [address] Dr. Tori Mills IG # 0.02 10e3/ul Normal 0.00-0.03 [facility] Comment on above: Performed By: #### M ALBR #### [facility] [address] [place] [address] Dr. Tori Mills IG % 0.3 % Normal 0.0-0.5 [facility] Comment on above: Performed By: #### M ALBR #### [facility] [address] [place] [address] Dr. Tori Mills LYMPH # 1.7 103/ul Normal 1.2-3.8 [facility] Comment on above: Performed By: #### M ALBR #### [facility] [address] [place] [address] Dr. Tori Mills Lymphocytes/100 WBC (Bld) 27.2 % Normal 20.5-60.0 [facility] Comment on above: Performed By: #### M ALBR #### [facility] [address] [place] [address] Dr. Tori Mills MANUAL DIFF REQ NO Normal [facility] Comment on above: Performed By: #### M ALBR #### [facility] [address] [place] [address] Dr. Tori Mills MCH (RBC) [Entitic mass] 29.2 pg Normal 25.9-34.0 [facility] Comment on above: Performed By: #### M ALBR #### [facility] [address] [place] [address] Dr. Tori Mills MCHC (RBC) [Mass/Vol] 31.8 g/dL Normal 29.9-35.2 [facility] Comment on above: Performed By: #### M ALBR #### [facility] [address] [place] [address] Dr. Tori Mills MCV (RBC) [Entitic vol] 91.8 fL Normal 80.0-94.0 [facility] Comment on above: Performed By: #### M ALBR #### [facility] [address] [place] [address] Dr. Tori Mills MONO # 0.7 103/ul Normal 0.3-0.8 [facility] Comment on above: Performed By: #### M ALBR #### [facility] [address] [address] [address] Tori Mills Monocytes/100 WBC (Bld) 10.8 % Normal 1.7-12.0 [facility] Comment on above: Performed By: #### M ALBR #### [facility] [address] [address] [address] Tori Mills NEUT # 3.7 103/ul Normal 1.4-6.5 [facility] Comment on above: Performed By: #### M ALBR #### [facility] [address] [address] [address] Tori Mills Neutrophils/100 WBC (Bld) 58.6 % Normal 43.0-75.0 [facility] Comment on above: Performed By: #### M ALBR #### [facility] [address] [place] [address] Dr. Tori Mills Platelet mean volume (Bld) [Entitic vol] 11.1 fL Normal 9.5-13.5 [facility] Comment on above: Performed By: #### M ALBR #### [facility] [address] [address] [address] Tori Mills PLT 148 103/ul Critically low 150-450 [facility] Comment on above: Performed By: #### M ALBR #### [facility] [address] [place] [address] Dr. Tori Mills RBC 2.91 106/ul Critically low 4.70-6.10 [facility] Comment on above: Performed By: #### M ALBR #### [facility] [address] [address] [address] Tori Mills WBC 6.4 103/ul Normal 4.0-11.0 [facility] Comment on above: Performed By: #### M ALBR #### [facility] [address] [address] [address] Tori Mills PROF 14(COMP METB)on 023 Albumin [Mass/Vol] 2.7 g/dL Critically low 3.4-5.0 [facility] Comment on above: Performed By: #### O BSCRN #### [facility] [address] [address] [address] Tori Mills Albumin/Globulin [Mass ratio] 1.1 {ratio} Normal [facility] Comment on above: Performed By: #### O BSCRN #### [facility] [address] [address] [address] Tori Mills ALP [Catalytic activity/Vol] 62 U/L Normal 46-116 [facility] Comment on above: Performed By: #### O BSCRN #### [facility] [address] [address] [address] Tori Mills ALT [Catalytic activity/Vol] 12 U/L Critically low 16-63 [facility] Comment on above: Performed By: #### O BSCRN #### [facility] [address] [address] [address] Tori Mills Anion gap [Moles/Vol] 8.5 mmol/L Normal [facility] Comment on above: Performed By: #### O BSCRN #### [facility] [address] [address] [address] Tori Mills AST [Catalytic activity/Vol] 13 U/L Critically low 15-37 [facility] Comment on above: Performed By: #### O BSCRN #### [facility] [address] [address] [address] Tori Mills Bilirubin [Mass/Vol] 0.3 mg/dL Normal 0.2-1.0 [facility] Comment on above: Performed By: #### O BSCRN #### [facility] [address] [address] [address] Tori Mills Calcium [Mass/Vol] 8.4 mg/dL Critically low 8.5-10.1 [facility] Comment on above: Performed By: #### O BSCRN #### [facility] [address] [address] [address] Tori Mills Chloride [Moles/Vol] 107 mmol/L Normal 98-107 [facility] Comment on above: Performed By: #### O BSCRN #### [facility] [address] [address] [address] Tori Mills CO2 [Moles/Vol] 30.0 mmol/L Normal 21.0-32.0 [facility] Comment on above: Performed By: #### O BSCRN #### [facility] [address] [address] [address] Tori Mills Creatinine [Mass/Vol] 0.67 mg/dL Critically low 0.70-1.30 [facility] Comment on above: Performed By: #### O BSCRN #### [facility] [address] [address] [address] Tori Mills EGFR-AF GIBRALTARIAN >60 Normal >=60 [facility] Comment on above: Performed By: #### O BSCRN #### [facility] [address] [place] [address] Dr. Tori Mills EGFR-NON AF GIBRALTARIAN >60 Normal >=60 [facility] Comment on above: Performed By: #### O BSCRN #### [facility] [address] [address] [address] Tori Mills Globulin (S) [Mass/Vol] 2.5 g/dL Normal [facility] Comment on above: Performed By: #### O BSCRN #### [facility] [address] [place] [address] Dr. Tori Mills Glucose [Mass/Vol] 98 mg/dL Normal 74-106 [facility] Comment on above: Performed By: #### O BSCRN #### [facility] [address] [address] [address] Tori Mills Potassium [Moles/Vol] 3.5 mmol/L Normal 3.5-5.1 [facility] Comment on above: Performed By: #### O BSCRN #### [facility] [address] [address] [address] Tori Mills Protein [Mass/Vol] 5.2 g/dL Critically low 6.4-8.2 [facility] Comment on above: Performed By: #### O BSCRN #### [facility] [address] [place] [address] Dr. Tori Mills Sodium [Moles/Vol] 142 mmol/L Normal 136-145 [facility] Comment on above: Performed By: #### O BSCRN #### [facility] [address] [place] [address] Dr. Tori Mills Urea nitrogen [Mass/Vol] 11.0 mg/dL Normal 7.0-18.0 [facility] Comment on above: Performed By: #### O BSCRN #### [facility] [address] [place] [address] Dr. Tori Mills Urea nitrogen/Creatinine [Mass ratio] 16.4 mg/mg Normal [facility] Comment on above: Performed By: #### O BSCRN #### [facility] [address] [place] [address] Dr. Tori Mills PROTIMEon 06-14-2022 INR Coag (PPP) [Relative time] 1.15 {INR} Normal [facility] Comment on above: Performed By: #### O BSCRN #### [facility] [address] [place] [address] Dr. Tori Mills INR GUIDELINES SEE BELOW Normal [facility] Comment on above: Result Comment: FRANCI RED INR: 2.0 - 3.0 CONDITIONS NOT LISTED BELOW 2.5 - 3.5 FOR PROSTHETIC HEART VALVE REPLACEMENT 2.5 - 3.5 RECURRENT THROMBOSIS Performed By: #### O BSCRN #### [facility] [address] [place] [address] Dr. Tori Mills PT Coag (PPP) [Time] 12.1 s Critically high 9.0-11.6 [facility] Comment on above: Performed By: #### O BSCRN #### [facility] [address] [place] [address] Dr. Tori Mills CBC AUTO DIFFon 06-13-2022 BASO # 0.0 103/ul Normal 0.0-0.1 [facility] Comment on above: Performed By: #### P T #### [facility] [address] [address] [address] Tori Mills Basophils/100 WBC (Bld) 0.4 % Normal 0.2-2.0 [facility] Comment on above: Performed By: #### P T #### [facility] [address] [address] [address] Tori Mills EO # 0.1 103/ul Normal 0.0-0.7 [facility] Comment on above: Performed By: #### P T #### [facility] [address] [address] [address] Tori Mills Eosinophils/100 WBC (Bld) 1.2 % Normal 0.9-7.0 [facility] Comment on above: Performed By: #### P T #### [facility] [address] [place] [address] Dr. Tori Mills Erythrocyte distribution width (RBC) [Ratio] 15.1 % Critically high 11.0-15.0 [facility] Comment on above: Performed By: #### P T #### [facility] [address] [place] [address] Dr. Tori Mills Hematocrit (Bld) [Volume fraction] 26.0 % Critically low 42.0-54.0 [facility] Comment on above: Performed By: #### P T #### [facility] [address] [place] [address] Dr. Tori Mills Hemoglobin (Bld) [Mass/Vol] 8.9 g/dL Critically low 14.0-18.0 [facility] Comment on above: Performed By: #### P T #### [facility] [address] [address] [address] Tori Mills IG # 0.03 10e3/ul Normal 0.00-0.03 [facility] Comment on above: Performed By: #### P T #### [facility] [address] [place] [address] Dr. Tori Mills IG % 0.4 % Normal 0.0-0.5 [facility] Comment on above: Performed By: #### P T #### [facility] [address] [place] [address] Dr. Tori Mills LYMPH # 2.1 103/ul Normal 1.2-3.8 [facility] Comment on above: Performed By: #### P T #### [facility] [address] [place] [address] Dr. Tori Mills Lymphocytes/100 WBC (Bld) 28.9 % Normal 20.5-60.0 [facility] Comment on above: Performed By: #### P T #### [facility] [address] [place] [address] Dr. Tori Mills MANUAL DIFF REQ NO Normal [facility] Comment on above: Performed By: #### P T #### [facility] [address] [place] [address] Dr. Tori Mills MCH (RBC) [Entitic mass] 30.4 pg Normal 25.9-34.0 [facility] Comment on above: Performed By: #### P T #### [facility] [address] [place] [address] Dr. Tori Mills MCHC (RBC) [Mass/Vol] 34.2 g/dL Normal 29.9-35.2 [facility] Comment on above: Performed By: #### P T #### [facility] [address] [place] [address] Dr. Tori Mills MCV (RBC) [Entitic vol] 88.7 fL Normal 80.0-94.0 [facility] Comment on above: Performed By: #### P T #### [facility] [address] [place] [address] Dr. Tori Mills MONO # 0.8 103/ul Normal 0.3-0.8 [facility] Comment on above: Performed By: #### P T #### [facility] [address] [place] [address] Dr. Tori Mills Monocytes/100 WBC (Bld) 10.4 % Normal 1.7-12.0 [facility] Comment on above: Performed By: #### P T #### [facility] [address] [place], [place] [id number] Dr. Tori Mills NEUT # 4.3 103/ul Normal 1.4-6.5 [facility] Comment on above: Performed By: #### P T #### [facility] [address] [address] [address] Tori Mills Neutrophils/100 WBC (Bld) 58.7 % Normal 43.0-75.0 [facility] Comment on above: Performed By: #### P T #### [facility] [address] [address] [address] Tori Mills Platelet mean volume (Bld) [Entitic vol] 10.9 fL Normal 9.5-13.5 [facility] Comment on above: Performed By: #### P T #### [facility] [address] [place] [address] Dr. Tori Mills PLT 135 103/ul Critically low 150-450 [facility] Comment on above: Performed By: #### P T #### [facility] [address] [place] [address] Dr. Tori Mills RBC 2.93 106/ul Critically low 4.70-6.10 [facility] Comment on above: Performed By: #### P T #### [facility] [address] [place] [address] Dr. Tori Mills WBC 7.3 103/ul Normal 4.0-11.0 [facility] Comment on above: Performed By: #### P T #### [facility] [address] [place] [address] Dr. Tori Mills PROF 14(COMP METB)on 023 Albumin [Mass/Vol] 2.8 g/dL Critically low 3.4-5.0 [facility] Comment on above: Performed By: #### B SAMARIA MORILLO #### [facility] [address] [place] [address] Dr. Tori Mills Albumin/Globulin [Mass ratio] 1.1 {ratio} Normal [facility] Comment on above: Performed By: #### SAMARIA Jerez MP #### [facility] [address] [address] [address] Tori Mills ALP [Catalytic activity/Vol] 47 U/L Normal 46-116 [facility] Comment on above: Performed By: #### B YISEL, WILIDM #### [facility] [address] [address] [address] Tori Mills ALT [Catalytic activity/Vol] 14 U/L Critically low 16-63 [facility] Comment on above: Performed By: #### B YISEL, WILIDM #### [facility] [address] [place] [address] Dr. Tori Mills Anion gap [Moles/Vol] 9.0 mmol/L Normal [facility] Comment on above: Performed By: #### B YISEL, SAMARIA #### [facility] [address] [place] [address] Dr. Tori Mills AST [Catalytic activity/Vol] 15 U/L Normal 15-37 [facility] Comment on above: Performed By: #### B SAMARIA MORILLO #### [facility] [address] [place] [address] Dr. Tori Mills Bilirubin [Mass/Vol] 0.6 mg/dL Normal 0.2-1.0 [facility] Comment on above: Performed By: #### B YISEL, SAMARIA #### [facility] [address] [place] [address] Dr. Tori Mills Calcium [Mass/Vol] 8.4 mg/dL Critically low 8.5-10.1 Th [facility] Comment on above: Performed By: #### B YISEL, WILIDM #### [facility] [address] [place] [address] Dr. Tori Mills Chloride [Moles/Vol] 107 mmol/L Normal 98-107 [facility] Comment on above: Performed By: #### B YISEL, SAMARIA #### [facility] [address] [place] [address] Dr. Tori Mills CO2 [Moles/Vol] 30.3 mmol/L Normal 21.0-32.0 [facility] Comment on above: Performed By: #### B YISEL, SAMARIA #### [facility] [address] [address] [address] Tori Mills Creatinine [Mass/Vol] 0.52 mg/dL Critically low 0.70-1.30 [facility] Comment on above: Performed By: #### B YISEL, WILIDM #### [facility] [address] [address] [address] Tori Mills EGFR-AF GIBRALTARIAN >60 Normal >=60 [facility] Comment on above: Performed By: #### B YISEL, WILIDM #### [facility] [address] [address] [address] Tori Mills EGFR-NON AF GIBRALTARIAN >60 Normal >=60 [facility] Comment on above: Performed By: #### B YISEL, WILIDM #### [facility] [address] [address] [address] Tori Mills Globulin (S) [Mass/Vol] 2.5 g/dL Normal T [facility] Comment on above: Performed By: #### B SAMARIA MORILLO #### [facility] [address] [address] [address] Tori Mills Glucose [Mass/Vol] 88 mg/dL Normal 74-106 [facility] Comment on above: Performed By: #### B YISEL, SAMARIA #### [facility] [address] [address] [address] Tori Mills Potassium [Moles/Vol] 3.3 mmol/L Critically low 3.5-5.1 [facility] Comment on above: Performed By: #### B YISEL, WILIDM #### [facility] [address] [address] [address] Tori Mills Protein [Mass/Vol] 5.3 g/dL Critically low 6.4-8.2 [facility] Comment on above: Performed By: #### B YISEL, WILIDM #### [facility] [address] [address] [address] Tori Mills Sodium [Moles/Vol] 143 mmol/L Normal 136-145 [facility] Comment on above: Performed By: #### B YISEL, SAMARIA #### [facility] [address] [place] [address] Dr. Tori Mills Urea nitrogen [Mass/Vol] 6.0 mg/dL Critically low 7.0-18.0 [facility] Comment on above: Performed By: #### B YISEL, SAMARIA #### [facility] [address] [place] [address] Dr. Tori Mills Urea nitrogen/Creatinine [Mass ratio] 11.5 mg/mg Normal [facility] Comment on above: Performed By: #### B YISEL, SAMARIA #### [facility] [address] [place] [address] Dr. Tori Mills PROTIMEon 06-13-2022 INR Coag (PPP) [Relative time] 1.39 {INR} Normal [facility] Comment on above: Performed By: #### P T #### [facility] [address] [place] [address] Dr. Tori Mills INR GUIDELINES SEE BELOW Normal [facility] Comment on above: Result Comment: FRANCI RED INR: 2.0 - 3.0 CONDITIONS NOT LISTED BELOW 2.5 - 3.5 FOR PROSTHETIC HEART VALVE REPLACEMENT 2.5 - 3.5 RECURRENT THROMBOSIS Performed By: #### P T #### [facility] [address] [place] [address] Dr. Tori Mills PT Coag (PPP) [Time] 14.5 s Critically high 9.0-11.6 [facility] Comment on above: Performed By: #### P T #### [facility] [address] [place] [address] Dr. Tori Mills ABO RH RETYPEon 06-12-2022 ABO and Rh group Nom (Bld) DONE Normal [facility] Comment on above: Performed By: #### O BSCRN #### [facility] [address] [place] [address] Dr. Tori Mills CARDIAC ALBINO 3-6on 3 CK [Catalytic activity/Vol] 33 U/L Critically low 39-308 [facility] Comment on above: Performed By: #### O BSCRN #### [facility] [address] [place] [address] Dr. Tori Mills CK.MB [Mass/Vol] 0.41 ng/mL Normal <=3.60 [facility] Comment on above: Performed By: #### O BSCRN #### [facility] [address] [place] [address] Dr. Tori Mills HSTROP 5.2 pg/mL Normal 4.0-76.1 [facility] Comment on above: Result Comment: CUT- OFF POINTS HAVE BEEN ESTABLISHED BASED ON THE FOURTH UNIVERSAL DEFINITIONS OF MYOCARDIAL INFARCTION. THE UPPER REFERENCE LIMIT (URL) OF TROPONIN, DEFINED THE 99TH PERCENTILE OF cTnI DISTRIBUTION IN A REFERENCE POPULATION, HAS BEEN CONFIRMED THE DECISION THRESHOLD FOR WI DIAGNOSIS. Performed By: #### O BSCRN #### [facility] [address] [place] [address] Dr. Tori Mills CBC AUTO DIFFon 06-12-2022 BASO # 0.0 103/ul Normal 0.0-0.1 [facility] Comment on above: Performed By: #### M ALBR #### [facility] [address] [place] [address] Dr. Tori Mills Basophils/100 WBC (Bld) 0.6 % Normal 0.2-2.0 [facility] Comment on above: Performed By: #### M ALBR #### [facility] [address] [place] [address] Dr. Tori Mills EO # 0.1 103/ul Normal 0.0-0.7 [facility] Comment on above: Performed By: #### M ALBR #### [facility] [address] [place] [address] Dr. Tori Mills Eosinophils/100 WBC (Bld) 1.0 % Normal 0.9-7.0 [facility] Comment on above: Performed By: #### M ALBR #### [facility] [address] [place] [address] Dr. Tori Mills Erythrocyte distribution width (RBC) [Ratio] 14.9 % Normal 11.0-15.0 [facility] Comment on above: Performed By: #### M ALBR #### [facility] [address] [place] [address] Dr. Tori Mills Hematocrit (Bld) [Volume fraction] 30.0 % Critically low 42.0-54.0 [facility] Comment on above: Performed By: #### M ALBR #### [facility] [address] [place] [address] Dr. Tori Mills Hemoglobin (Bld) [Mass/Vol] 10.1 g/dL Critically low 14.0-18.0 [facility] Comment on above: Performed By: #### M ALBR #### [facility] [address] [place] [address] Dr. Tori Mills IG # 0.03 10e3/ul Normal 0.00-0.03 [facility] Comment on above: Performed By: #### M ALBR #### [facility] [address] [place] [address] Dr. Tori Mills IG % 0.4 % Normal 0.0-0.5 [facility] Comment on above: Performed By: #### M ALBR #### [facility] [address] [place] [address] Dr. Tori Mills LYMPH # 2.2 103/ul Normal 1.2-3.8 [facility] Comment on above: Performed By: #### M ALBR #### [facility] [address] [place] [address] Dr. Tori Mills Lymphocytes/100 WBC (Bld) 32.4 % Normal 20.5-60.0 [facility] Comment on above: Performed By: #### M ALBR #### [facility] [address] [place] [address] Dr. Tori Mills MANUAL DIFF REQ NO Normal [facility] Comment on above: Performed By: #### M ALBR #### [facility] [address] [place] [address] Dr. Tori Mills MCH (RBC) [Entitic mass] 30.3 pg Normal 25.9-34.0 [facility] Comment on above: Performed By: #### M ALBR #### [facility] [address] [address] [address] Tori Mills MCHC (RBC) [Mass/Vol] 33.7 g/dL Normal 29.9-35.2 [facility] Comment on above: Performed By: #### M ALBR #### [facility] [address] [address] [address] Tori Mills MCV (RBC) [Entitic vol] 90.1 fL Normal 80.0-94.0 [facility] Comment on above: Performed By: #### M ALBR #### [facility] [address] [address] [address] Tori Mills MONO # 0.7 103/ul Normal 0.3-0.8 [facility] Comment on above: Performed By: #### M ALBR #### [facility] [address] [place] [address] Dr. Tori Mills Monocytes/100 WBC (Bld) 10.4 % Normal 1.7-12.0 [facility] Comment on above: Performed By: #### M ALBR #### [facility] [address] [place] [address] Dr. Tori Mills NEUT # 3.7 103/ul Normal 1.4-6.5 [facility] Comment on above: Performed By: #### M ALBR #### [facility] [address] [place] [address] Dr. Tori Mills Neutrophils/100 WBC (Bld) 55.2 % Normal 43.0-75.0 [facility] Comment on above: Performed By: #### M ALBR #### [facility] [address] [place] [address] Dr. Tori Mills Platelet mean volume (Bld) [Entitic vol] 10.8 fL Normal 9.5-13.5 [facility] Comment on above: Performed By: #### M ALBR #### [facility] [address] [place] [address] Dr. Tori Mills PLT 144 103/ul Critically low 150-450 [facility] Comment on above: Performed By: #### M ALBR #### [facility] [address] [address] [address] Tori Mills RBC 3.33 106/ul Critically low 4.70-6.10 [facility] Comment on above: Performed By: #### M ALBR #### [facility] [address] [address] [address] Tori Mills WBC 6.8 103/ul Normal 4.0-11.0 [facility] Comment on above: Performed By: #### M ALBR #### [facility] [address] [address] [address] Tori Mills BASO # 0.0 103/ul Normal 0.0-0.1 [facility] Comment on above: Performed By: #### C BC #### [facility] [address] [place] [address] Dr. Tori Mills Basophils/100 WBC (Bld) 0.4 % Normal 0.2-2.0 [facility] Comment on above: Performed By: #### C BC #### [facility] [address] [place] [address] Dr. Tori Mills EO # 0.1 103/ul Normal 0.0-0.7 [facility] Comment on above: Performed By: #### C BC #### [facility] [address] [place] [address] Dr. Tori Mills Eosinophils/100 WBC (Bld) 1.1 % Normal 0.9-7.0 [facility] Comment on above: Performed By: #### C BC #### [facility] [address] [place] [address] Dr. Tori Mills Erythrocyte distribution width (RBC) [Ratio] 14.6 % Normal 11.0-15.0 [facility] Comment on above: Performed By: #### C BC #### [facility] [address] [place] [address] Dr. Tori Mills Hematocrit (Bld) [Volume fraction] 26.2 % Critically low 42.0-54.0 [facility] Comment on above: Performed By: #### C BC #### [facility] [address] [place] [address] Dr. Tori Mills Hemoglobin (Bld) [Mass/Vol] 8.0 g/dL Critically low 14.0-18.0 [facility] Comment on above: Performed By: #### C BC #### [facility] [address] [place] [address] Dr. Tori Mills IG # 0.02 10e3/ul Normal 0.00-0.03 [facility] Comment on above: Performed By: #### C BC #### [facility] [address] [place] [address] Dr. Tori Mills IG % 0.3 % Normal 0.0-0.5 [facility] Comment on above: Performed By: #### C BC #### [facility] [address] [place] [address] Dr. Tori Mills LYMPH # 2.0 103/ul Normal 1.2-3.8 [facility] Comment on above: Performed By: #### C BC #### [facility] [address] [place] [address] Dr. Tori Mills Lymphocytes/100 WBC (Bld) 28.2 % Normal 20.5-60.0 [facility] Comment on above: Performed By: #### C BC #### [facility] [address] [place] [address] Dr. Tori Mills MANUAL DIFF REQ NO Normal [facility] Comment on above: Performed By: #### C BC #### [facility] [address] [place] [address] Dr. Tori Mills MCH (RBC) [Entitic mass] 30.5 pg Normal 25.9-34.0 [facility] Comment on above: Performed By: #### C BC #### [facility] [address] [place] [address] Dr. Tori Mills MCHC (RBC) [Mass/Vol] 30.5 g/dL Normal 29.9-35.2 [facility] Comment on above: Performed By: #### C BC #### [facility] [address] [place] [address] Dr. Tori Mills MCV (RBC) [Entitic vol] 100.0 fL Critically high 80.0-94 .0 [facility] Comment on above: Performed By: #### C BC #### [facility] [address] [place] [address] Dr. Tori Mills MONO # 0.8 103/ul Normal 0.3-0.8 [facility] Comment on above: Performed By: #### C BC #### [facility] [address] [place] [address] Dr. Tori Mills Monocytes/100 WBC (Bld) 10.8 % Normal 1.7-12.0 [facility] Comment on above: Performed By: #### C BC #### [facility] [address] [place] [address] Dr. Tori Mills NEUT # 4.2 103/ul Normal 1.4-6.5 [facility] Comment on above: Performed By: #### C BC #### [facility] [address] [place] [address] Dr. Tori Mills Neutrophils/100 WBC (Bld) 59.2 % Normal 43.0-75.0 [facility] Comment on above: Performed By: #### C BC #### [facility] [address] [place] [address] Dr. Tori Mills Platelet mean volume (Bld) [Entitic vol] 11.3 fL Normal 9.5-13.5 [facility] Comment on above: Performed By: #### C BC #### [facility] [address] [place] [address] Dr. Tori Mills PLT 140 103/ul Critically low 150-450 [facility] Comment on above: Performed By: #### C BC #### [facility] [address] [place] [address] Dr. Tori Mills RBC 2.62 106/ul Critically low 4.70-6.10 [facility] Comment on above: Performed By: #### C BC #### [facility] [address] [place] [address] Dr. Tori Mills WBC 7.0 103/ul Normal 4.0-11.0 [facility] Comment on above: Performed By: #### C BC #### [facility] [address] [place] [address] Dr. Tori Mills Covid-19 PCR ([facility])on 05-31 SARS-CoV-2 (COVID-19) RNA DREA+probe Ql (Unsp spec) Not detected Normal NOT DETECTED [facility] Comment on above: Result Comment: When diagnostic [...] for this test is supported by the Wildfire Prevention Specialist of Health and Human Service's declaration that [...] longer be used). Performed By: #### B , [facility] #### [facility] [address] [place] [address] [address] [address] Tori Mills ECHOCARDIO M/2D COMPLETEon 0 06-12-2022 ECHOCARDIO M/2D COMPLETE Patient: SEN GARCIA. Exam Date: 06/12/2022 : 1950 Gender:M Ordering : HECTOR FAN . Admission #: [id number] Family : DR PABLO ABREU . Order #: [id number] CLICK HERE TO VIEW EXAM ECHOCARDIOGRAM REPORT PROCEDURE: CARDIO PULMONARY ECHOCARDIO M/2D COMP INDICATIONS: Syncope, h/o [place], CVA, diabetes COMPARISON: None. DESCRIPTION: COMPLETE ECHOCARDIOGRAM [...] Noble M.D. on 06/17/2022 at 08:59 Normal [facility] OCC BLD IMMUNO SCREENon 05-31 OCCULT BLOOD Positive Abnormal NEGATIVE [facility] Comment on above: Performed By: #### O BSCRN #### [facility] [address] [place] [address] Dr. Tori Mills PROF 14(COMP METB)on 023 Albumin [Mass/Vol] 2.9 g/dL Critically low 3.4-5.0 [facility] Comment on above: Performed By: #### B SAMARIA MORILLO #### [facility] [address] [place] [address] Dr. Tori Mills Albumin/Globulin [Mass ratio] 1.2 {ratio} Normal [facility] Comment on above: Performed By: #### B SAMARIA MORILLO #### [facility] [address] [place] [address] Dr. Tori Mills ALP [Catalytic activity/Vol] 50 U/L Normal 46-116 [facility] Comment on above: Performed By: #### B SAMARIA MORILLO #### [facility] [address] [place] [address] Dr. Tori Mills ALT [Catalytic activity/Vol] 18 U/L Normal 16-63 [facility] Comment on above: Performed By: #### B SAMARIA MORILLO #### [facility] [address] [place] [address] Dr. Tori Mills Anion gap [Moles/Vol] 8.4 mmol/L Normal [facility] Comment on above: Performed By: #### B SAMARIA MORILLO #### [facility] [address] [place] [address] Dr. Tori Mills AST [Catalytic activity/Vol] 16 U/L Normal 15-37 [facility] Comment on above: Performed By: #### B YISEL, SAMARIA #### [facility] [address] [place] [address] Dr. Tori Mills Bilirubin [Mass/Vol] 0.5 mg/dL Normal 0.2-1.0 [facility] Comment on above: Performed By: #### B YISEL, WILIDM #### [facility] [address] [place] [address] Dr. Tori Mills Calcium [Mass/Vol] 8.2 mg/dL Critically low 8.5-10.1 Th [facility] Comment on above: Performed By: #### B SAMARIA MORILLO #### [facility] [address] [place] [address] Dr. Tori Mills Chloride [Moles/Vol] 109 mmol/L Critically high 98-107 [facility] Comment on above: Performed By: #### SAMARIA Jerez MP #### [facility] [address] [place] [address] Dr. Tori Mills CO2 [Moles/Vol] 30.3 mmol/L Normal 21.0-32.0 [facility] Comment on above: Performed By: #### SAMARIA Jerez MP #### [facility] [address] [place] [address] Dr. Tori Mills Creatinine [Mass/Vol] 0.62 mg/dL Critically low 0.70-1.30 [facility] Comment on above: Performed By: #### SAMARIA Jerez MP #### [facility] [address] [place] [address] Dr. Tori Mills EGFR-AF GIBRALTARIAN >60 Normal >=60 [facility] [place] [facility] Comment on above: Performed By: #### SAMARIA Jerez MP #### [facility] [address] [place] [address] Dr. Tori Mills EGFR-NON AF GIBRALTARIAN >60 Normal >=60 [facility] Comment on above: Performed By: #### SAMARIA Jerez MP #### [facility] [address] [place] [address] Dr. Tori Mills Globulin (S) [Mass/Vol] 2.5 g/dL Normal T [facility] Comment on above: Performed By: #### B SAMARIA MORILLO #### [facility] [address] [place] [address] Dr. Tori Mills Glucose [Mass/Vol] 106 mg/dL Normal 74-106 [facility] Comment on above: Performed By: #### B SAMARIA MORILLO #### [facility] [address] [place] [address] Dr. Tori Mills Potassium [Moles/Vol] 3.7 mmol/L Normal 3.5-5.1 [facility] Comment on above: Performed By: #### B SAMARIA MORILLO #### [facility] [address] [place] [address] Dr. Tori Mills Protein [Mass/Vol] 5.4 g/dL Critically low 6.4-8.2 [facility] Comment on above: Performed By: #### B SAMARIA MORILLO #### [facility] [address] [place] [address] Dr. Tori Mills Sodium [Moles/Vol] 144 mmol/L Normal 136-145 [facility] Comment on above: Performed By: #### B SAMARIA MORILLO #### [facility] [address] [place] [address] Dr. Tori Mills Urea nitrogen [Mass/Vol] 13.0 mg/dL Normal 7.0-18.0 [facility] Comment on above: Performed By: #### B SAMARIA MORILLO #### [facility] [address] [place] [address] Dr. Tori Mills Urea nitrogen/Creatinine [Mass ratio] 21.0 mg/mg Normal [facility] Comment on above: Performed By: #### B SAMARIA MORILLO #### [facility] [address] [place] [address] Dr. Tori Mills PROTIMEon 06-12-2022 INR Coag (PPP) [Relative time] 2.35 {INR} Normal [facility] Comment on above: Performed By: #### P T #### [facility] [address], [place] [address] Dr. Tori Mills INR GUIDELINES SEE BELOW Normal [facility] Comment on above: Result Comment: FRANCI RED INR: 2.0 - 3.0 CONDITIONS NOT LISTED BELOW 2.5 - 3.5 FOR PROSTHETIC HEART VALVE REPLACEMENT 2.5 - 3.5 RECURRENT THROMBOSIS Performed By: #### P T #### [facility] [address] [address] [address] Tori Mills PT Coag (PPP) [Time] 23.7 s Critically high 9.0-11.6 [facility] Comment on above: Performed By: #### P T #### [facility] [address] [address] [address] Tori Mills TYPE AND SCREENon 06-12-2022 TYPE AND SCREEN Negative Normal [facility] Comment on above: Performed By: #### M ALBR #### [facility] [address] [address] [address] Tori Mills US CAROTID ART BILon [...] KATIA ORDONEZ Date: 2022-06-12 09:32 Normal [facility] CARDIAC ALBINO ADMITon 023 CK [Catalytic activity/Vol] 34 U/L Critically low 39-308 [facility] Comment on above: Performed By: #### B SAMARIA MORILLO #### [facility] [address] [address] [address] Tori Mills CK.MB [Mass/Vol] 0.33 ng/mL Normal <=3.60 [facility] [place] [facility] Comment on above: Performed By: #### B SAMARIA MORILLO #### [facility] [address] [address] [address] Tori Mills HSTROP 5.4 pg/mL Normal 4.0-76.1 [facility] Comment on above: Result Comment: CUT- OFF POINTS HAVE BEEN ESTABLISHED BASED ON THE FOURTH UNIVERSAL DEFINITIONS OF MYOCARDIAL INFARCTION. THE UPPER REFERENCE LIMIT (URL) OF TROPONIN, DEFINED THE 99TH PERCENTILE OF cTnI DISTRIBUTION IN A REFERENCE POPULATION, HAS BEEN CONFIRMED THE DECISION THRESHOLD FOR WI DIAGNOSIS. Performed By: #### B YISEL, CMADM #### [facility] [address] [place] [address] Dr. Tori Mills TAMIKO 36 ng/mL Normal 16-96 [facility] Comment on above: Performed By: #### B YISEL, CMADM #### [facility] [address] [place] [address] Dr. Tori Mills CBC AUTO DIFFon 06-11-2022 BASO # 0.0 103/ul Normal 0.0-0.1 [facility] Comment on above: Performed By: #### M ALBR #### [facility] [address] [place] [address] Dr. Tori Mills Basophils/100 WBC (Bld) 0.6 % Normal 0.2-2.0 [facility] Comment on above: Performed By: #### M ALBR #### [facility] [address] [place] [address] Dr. Tori Mills EO # 0.1 103/ul Normal 0.0-0.7 [facility] Comment on above: Performed By: #### M ALBR #### [facility] [address] [place] [address] Dr. Tori Mills Eosinophils/100 WBC (Bld) 1.0 % Normal 0.9-7.0 [facility] Comment on above: Performed By: #### M ALBR #### [facility] [address] [place] [address] Dr. Tori Mills Erythrocyte distribution width (RBC) [Ratio] 12.9 % Normal 11.0-15.0 [facility] Comment on above: Performed By: #### M ALBR #### [facility] [address] [place] [address] Dr. Tori Mills Hematocrit (Bld) [Volume fraction] 25.2 % Critically low 42.0-54.0 [facility] Comment on above: Performed By: #### M ALBR #### [facility] [address] [place] [address] Dr. Tori Mills Hemoglobin (Bld) [Mass/Vol] 7.7 g/dL Critically low 14.0-18.0 [facility] Comment on above: Performed By: #### M ALBR #### [facility] [address] [place] [address] Dr. Tori Mills IG # 0.03 10e3/ul Normal 0.00-0.03 [facility] Comment on above: Performed By: #### M ALBR #### [facility] [address] [place] [address] Dr. Tori Mills IG % 0.4 % Normal 0.0-0.5 [facility] Comment on above: Performed By: #### M ALBR #### [facility] [address] [place] [address] Dr. Tori Mills LYMPH # 1.9 103/ul Normal 1.2-3.8 [facility] Comment on above: Performed By: #### M ALBR #### [facility] [address] [place] [address] Dr. Tori Mills Lymphocytes/100 WBC (Bld) 28.0 % Normal 20.5-60.0 [facility] Comment on above: Performed By: #### M ALBR #### [facility] [address] [place] [address] Dr. Tori Mills MANUAL DIFF REQ NO Normal [facility] Comment on above: Performed By: #### M ALBR #### [facility] [address] [place] [address] Dr. Tori Mills MCH (RBC) [Entitic mass] 31.3 pg Normal 25.9-34.0 [facility] Comment on above: Performed By: #### M ALBR #### [facility] [address] [place] [address] Dr. Tori Mills MCHC (RBC) [Mass/Vol] 30.6 g/dL Normal 29.9-35.2 [facility] Comment on above: Performed By: #### M ALBR #### [facility] [address] [place] [address] Dr. Tori Mills MCV (RBC) [Entitic vol] 102.4 fL Critically high 80.0-94 .0 [facility] Comment on above: Performed By: #### M ALBR #### [facility] [address] [place] [address] Dr. Tori Mills MONO # 0.7 103/ul Normal 0.3-0.8 [facility] Comment on above: Performed By: #### M ALBR #### [facility] [address] [place] [address] Dr. Tori Mills Monocytes/100 WBC (Bld) 10.2 % Normal 1.7-12.0 [facility] Comment on above: Performed By: #### M ALBR #### [facility] [address] [place] [address] Dr. Tori Mills NEUT # 4.1 103/ul Normal 1.4-6.5 [facility] Comment on above: Performed By: #### M ALBR #### [facility] [address] [place] [address] Dr. Tori Mills Neutrophils/100 WBC (Bld) 59.8 % Normal 43.0-75.0 [facility] Comment on above: Performed By: #### M ALBR #### [facility] [address] [place] [address] Dr. Tori Mills Platelet mean volume (Bld) [Entitic vol] 11.6 fL Normal 9.5-13.5 [facility] Comment on above: Performed By: #### M ALBR #### [facility] [address] [place] [address] Dr. Tori Mills PLT 173 103/ul Normal 150-450 [facility] Comment on above: Performed By: #### M ALBR #### [facility] [address] [place] [address] Dr. Tori Mills RBC 2.46 106/ul Critically low 4.70-6.10 [facility] Comment on above: Performed By: #### M ALBR #### [facility] [address] [place] [address] Dr. Tori Mills WBC 6.8 103/ul Normal 4.0-11.0 [facility] Comment on above: Performed By: #### M ALBR #### [facility] [address] [place] [address] Dr. Tori Mills FERRITINon 06-11-2022 Ferritin [Mass/Vol] 17.0 ng/mL Critically low 26.0-388.0 [facility] Comment on above: Performed By: #### B SAMARIA MORILLO #### [facility] [address] [place] [address] Dr. Tori Mills IRON AND TIBCon 06-11-2022 % SATURATION 6.4 % Normal [facility] Comment on above: Performed By: #### B SAMARIA MORILLO #### [facility] [address] [place] [address] Dr. Tori Mills Iron [Mass/Vol] 27.0 ug/dL Critically low 65.0-175.0 [facility] Comment on above: Performed By: #### SAMARIA Jerez MP #### [facility] [address] [place] [address] Dr. Tori Mills TIBC DIRECT 420.0 ug/dL Normal 250.0-450.[address] [facility] Comment on above: Performed By: #### B SAMARIA MORILLO #### [facility] [address] [place] [address] Dr. Tori Mills MAGNESIUMon 06-11-2022 Magnesium [Mass/Vol] 1.7 mg/dL Critically low 1.8-2.4 [facility] Comment on above: Performed By: #### B SAMARIA MORILLO #### [facility] [address] [place] [address] Dr. Tori Mills PROF CHEM 8 (BAS METB)on Anion gap [Moles/Vol] 11.3 mmol/L Normal [facility] Comment on above: Performed By: #### B MP, CMADM #### [facility] [address] [address] [address] Tori Mills Calcium [Mass/Vol] 8.7 mg/dL Normal 8.5-10.1 [facility] Comment on above: Performed By: #### B MP, CMADM #### [facility] [address] [address] [address] Tori Mills Chloride [Moles/Vol] 102 mmol/L Normal 98-107 [facility] Comment on above: Performed By: #### B YISEL, CMADM #### [facility] [address] [address] [address] Tori Mills CO2 [Moles/Vol] 31.4 mmol/L Normal 21.0-32.0 [facility] Comment on above: Performed By: #### B YISEL, CMADM #### [facility] [address] [place] [address] Dr. Tori Mills Creatinine [Mass/Vol] 0.70 mg/dL Normal 0.70-1.30 [facility] Comment on above: Performed By: #### B YISEL, CMADM #### [facility] [address] [address] [address] Tori Mills EGFR-AF GIBRALTARIAN >60 Normal >=60 [facility] Comment on above: Performed By: #### B YISEL, CMADM #### [facility] [address] [place] [address] Dr. Tori Mills EGFR-NON AF GIBRALTARIAN >60 Normal >=60 [facility] Comment on above: Performed By: #### B YISEL, CMADM #### [facility] [address] [address] [address] Tori Mills Glucose [Mass/Vol] 127 mg/dL Critically high 74-106 [facility] Comment on above: Performed By: #### B YISEL, CMADM #### [facility] [address] [address] [address] Tori Mills Potassium [Moles/Vol] 3.7 mmol/L Normal 3.5-5.1 [facility] Comment on above: Performed By: #### B SAMARIA MORILLO #### [facility] [address] [place] [address] Dr. Tori Mills Sodium [Moles/Vol] 141 mmol/L Normal 136-145 [facility] Comment on above: Performed By: #### B SAMARIA MORILLO #### [facility] [address] [place] [address] Dr. Tori Mills Urea nitrogen [Mass/Vol] 14.0 mg/dL Normal 7.0-18.0 [facility] Comment on above: Performed By: #### B SAMARIA MORILLO #### [facility] [address] [place] [address] Dr. Tori Mills Urea nitrogen/Creatinine [Mass ratio] 20.0 mg/mg Normal [facility] Comment on above: Performed By: #### B SAMARIA MORILLO #### [facility] [address] [place] [address] Dr. Tori Mills PROTIMEon 06-11-2022 INR Coag (PPP) [Relative time] 3.32 {INR} Normal [facility] Comment on above: Performed By: #### P T #### [facility] [address] [place] [address] Dr. Tori Mills INR GUIDELINES SEE BELOW Normal [facility] Comment on above: Result Comment: FRANCI RED INR: 2.0 - 3.0 CONDITIONS NOT LISTED BELOW 2.5 - 3.5 FOR PROSTHETIC HEART VALVE REPLACEMENT 2.5 - 3.5 RECURRENT THROMBOSIS Performed By: #### P T #### [facility] [address] [place] [address] Dr. Tori Mills PT Coag (PPP) [Time] 32.9 s Critically high 9.0-11.6 [facility] Comment on above: Performed By: #### P T #### [facility] [address] [place] [address] Dr. Tori Mills TSHon 06-11-2022 TSH 1.084 uIU/mL Normal 0.358-3.[address] [facility] Comment on above: Performed By: #### B SAMARIA MORILLO #### [facility] [address], [place] [address] Dr. Tori Mills XR CHEST 1 Von [...] CHELE MALAVE Date: 2022-06-11 20:24 Normal [facility] Office Visit (Cardiology)on 06-08-2022 Follow-up visit Diagnoses/Problems [...] up appt as scheduled Chief Complaint SEN GARCIA is being seen for ov per i. [...] with Coumadin managed by his PCP in [place], prescription for sotalol was provided since he [...] 0.4 MG Oral CapsuleTAKE 1 CAPSULE Daily Picher 7.5-325 MG TABSTAKE 1 TABLET EVERY 6 [...] Respiratory: shortne (more content not included)... Normal [employer] Tobacco Screening.on 023 Fall risk assessment b) One or more fall s in the last year [facility] [place] [address] DO Work Phone: Tobacco use status [facility] a) Yes [facility] [place] [address] DO Work Phone: Tobacco Screening. Yes -[facility] [place] [address] DO Work Phone: PROTIMEon 06-02-2022 INR Coag (PPP) [Relative time] 2.48 {INR} Normal [facility] Comment on above: Performed By: #### P T #### [facility] [address] [address] [address] Tori Mills INR GUIDELINES SEE BELOW Normal [facility] Comment on above: Result Comment: FRANCI RED INR: 2.0 - 3.0 CONDITIONS NOT LISTED BELOW 2.5 - 3.5 FOR PROSTHETIC HEART VALVE REPLACEMENT 2.5 - 3.5 RECURRENT THROMBOSIS Performed By: #### P T #### [facility] [address] [place] [address] Dr. Tori Mills PT Coag (PPP) [Time] 25.2 s Critically high 9.0-11.6 [facility] Comment on above: Performed By: #### P T #### [facility] [address] [place] [address] Dr. Tori Mills PROTIMEon 05-26-2022 INR Coag (PPP) [Relative time] 4.70 {INR} Critically high [facility] Comment on above: Performed By: #### O BSCRN #### [facility] [address] [place] [address] Dr. Tori Mills INR GUIDELINES SEE BELOW Normal [facility] Comment on above: Result Comment: FRANCI RED INR: 2.0 - 3.0 CONDITIONS NOT LISTED BELOW 2.5 - 3.5 FOR PROSTHETIC HEART VALVE REPLACEMENT 2.5 - 3.5 RECURRENT THROMBOSIS Performed By: #### O BSCRN #### [facility] [address] [place] [address] Dr. Tori Mills PT Coag (PPP) [Time] 45.9 s Critically high 9.0-11.6 [facility] Comment on above: Performed By: #### O BSCRN #### [facility] [address] [place] [address] Dr. Tori Mills PROTIMEon 04-16-2022 INR Coag (PPP) [Relative time] 2.96 {INR} Normal [facility] Comment on above: Performed By: #### P T #### [facility] [address] [place] [address] Dr. Tori Mills INR GUIDELINES SEE BELOW Normal [facility] Comment on above: Result Comment: FRANCI RED INR: 2.0 - 3.0 CONDITIONS NOT LISTED BELOW 2.5 - 3.5 FOR PROSTHETIC HEART VALVE REPLACEMENT 2.5 - 3.5 RECURRENT THROMBOSIS Performed By: #### P T #### [facility] [address] [place], [place] [address] Dr. Tori Mills PT Coag (PPP) [Time] 29.8 s Critically high 9.0-11.6 [facility] Comment on above: Performed By: #### P T #### [facility] [address] [place], [place] [address] Dr. Tori Mills Office Visit (Cardiology)on 04-10-2022 [...] we can help. You may also call [phone]-IXDUCompuPayNOW for free resources and assistance.; Status:Complete - [...] with Coumadin managed by his PCP in [place] 2?active tobacco abuse, education provided to end [...] 0.4 MG Oral CapsuleTAKE 1 CAPSULE Daily Picher 7.5-325 MG TABSTAKE 1 TABLET EVERY 6 [...] Drug Allergie (more content not included)... Normal [employer] Tobacco Screening.on 022 Fall risk assessment a) No falls within the last year [facility] [place] [address] DO Work Phone: Tobacco use status [facility] a) Yes [facility] [place] [address] DO Work Phone: Tobacco Screening. Yes [facility] [place] [address] DO Work Phone: PROTIMEon 04-01-2022 INR Coag (PPP) [Relative time] 3.52 {INR} Normal [facility] Comment on above: Performed By: #### M ALBR #### [facility] [address] [address] [address] Tori Mills INR GUIDELINES SEE BELOW Normal [facility] Comment on above: Result Comment: FRANCI RED INR: 2.0 - 3.0 CONDITIONS NOT LISTED BELOW 2.5 - 3.5 FOR PROSTHETIC HEART VALVE REPLACEMENT 2.5 - 3.5 RECURRENT THROMBOSIS Performed By: #### M ALBR #### [facility] [address] [address] [address] Tori Mills PT Coag (PPP) [Time] 35.0 s Critically high 9.0-11.6 [facility] Comment on above: Performed By: #### M ALBR #### [facility] [address] [place] [address] Dr. Tori Mills PROTIMEmary 03-16-2022 INR Coag (PPP) [Relative time] 5.12 {INR} Critically high [facility] Comment on above: Performed By: #### P T #### [facility] [address] [place] [address] Dr. Tori Mills INR GUIDELINES SEE BELOW Normal [facility] Comment on above: Result Comment: FRANCI RED INR: 2.0 - 3.0 CONDITIONS NOT LISTED BELOW 2.5 - 3.5 FOR PROSTHETIC HEART VALVE REPLACEMENT 2.5 - 3.5 RECURRENT THROMBOSIS Performed By: #### P T #### [facility] [address] [place] [address] Dr. Tori Mills PT Coag (PPP) [Time] 49.7 s Critically high 9.0-11.6 [facility] Comment on above: Performed By: #### P T #### [facility] [address] [place] [address] Dr. Tori Mills PROTIMEmary 02-05-2022 INR Coag (PPP) [Relative time] 3.20 {INR} Normal [facility] Comment on above: Performed By: #### B YISEL, WILIDM #### [facility] [address] [place] [address] Dr. Tori Mills INR GUIDELINES SEE BELOW Normal [facility] Comment on above: Result Comment: FRANCI RED INR: 2.0 - 3.0 CONDITIONS NOT LISTED BELOW 2.5 - 3.5 FOR PROSTHETIC HEART VALVE REPLACEMENT 2.5 - 3.5 RECURRENT THROMBOSIS Performed By: #### B YISEL, WILIDM #### [facility] [address] [place] [address] Dr. Tori Mills PT Coag (PPP) [Time] 32.0 s Critically high 9.0-11.6 [facility] Comment on above: Performed By: #### B YISEL, WILIDM #### [facility] [address] [place] [address] Dr. Tori Mills PROTIMEon 12-31-2021 INR Coag (PPP) [Relative time] 2.78 {INR} Normal [facility] Comment on above: Performed By: #### P T #### [facility] [address] [place] [address] Dr. Tori Mills INR GUIDELINES SEE BELOW Normal [facility] Comment on above: Result Comment: FRANCI RED INR: 2.0 - 3.0 CONDITIONS NOT LISTED BELOW 2.5 - 3.5 FOR PROSTHETIC HEART VALVE REPLACEMENT 2.5 - 3.5 RECURRENT THROMBOSIS Performed By: #### P T #### [facility] [address] [place] [address] Dr. Tori Mills PT Coag (PPP) [Time] 28.1 s Critically high 9.0-11.6 [facility] Comment on above: Performed By: #### P T #### [facility] [address] [place] [address] Dr. Tori Mills PROTIMEmary 12-03-2021 INR Coag (PPP) [Relative time] 2.49 {INR} Normal [facility] Comment on above: Performed By: #### M ALBR #### [facility] [address] [place] [address] Dr. Tori Mills INR GUIDELINES SEE BELOW Normal [facility] Comment on above: Result Comment: FRANCI RED INR: 2.0 - 3.0 CONDITIONS NOT LISTED BELOW 2.5 - 3.5 FOR PROSTHETIC HEART VALVE REPLACEMENT 2.5 - 3.5 RECURRENT THROMBOSIS Performed By: #### M ALBR #### [facility] [address] [place] [address] Dr. Tori Mills PT Coag (PPP) [Time] 25.3 s Critically high 9.0-11.6 [facility] Comment on above: Performed By: #### M ALBR #### [facility] [address] [place] [address] Dr. Tori Mills PROTIMEon 11-13-2021 INR Coag (PPP) [Relative time] 3.05 {INR} Normal [facility] Comment on above: Performed By: #### B MP, SAMARIA #### [facility] [address] [place] [address] Dr. Tori Mills INR GUIDELINES SEE BELOW Normal [facility] Comment on above: Result Comment: FRANCI RED INR: 2.0 - 3.0 CONDITIONS NOT LISTED BELOW 2.5 - 3.5 FOR PROSTHETIC HEART VALVE REPLACEMENT 2.5 - 3.5 RECURRENT THROMBOSIS Performed By: #### B YISEL, CMADM #### [facility] [address] [place] [address] Dr. Tori Mills PT Coag (PPP) [Time] 30.6 s Critically high 9.0-11.6 [facility] Comment on above: Performed By: #### B YISEL, CMADM #### [facility] [address] [place] [address] Dr. Tori Mills PROTIMEon 10-02-2021 INR Coag (PPP) [Relative time] 3.11 {INR} Normal [facility] Comment on above: Performed By: #### B YISEL, CMADM #### [facility] [address] [place] [address] Dr. Tori Mills INR GUIDELINES SEE BELOW Normal [facility] Comment on above: Result Comment: FRANCI RED INR: 2.0 - 3.0 CONDITIONS NOT LISTED BELOW 2.5 - 3.5 FOR PROSTHETIC HEART VALVE REPLACEMENT 2.5 - 3.5 RECURRENT THROMBOSIS Performed By: #### B YISEL, CMADM #### [facility] [address] [place] [address] Dr. Tori Mills PT Coag (PPP) [Time] 31.2 s Critically high 9.0-11.6 [facility] Comment on above: Performed By: #### B YISEL, CMADM #### [facility] [address] [place] [address] Dr. Tori Mills PROTIMEon 09-03-2021 INR Coag (PPP) [Relative time] 2.97 {INR} Normal [facility] Comment on above: Performed By: #### P T #### [facility] [address] [place] [address] Dr. Tori Mills INR GUIDELINES SEE BELOW Normal [facility] Comment on above: Result Comment: FRANCI RED INR: 2.0 - 3.0 CONDITIONS NOT LISTED BELOW 2.5 - 3.5 FOR PROSTHETIC HEART VALVE REPLACEMENT 2.5 - 3.5 RECURRENT THROMBOSIS Performed By: #### P T #### [facility] [address] [address] [address] Tori Mills PT Coag (PPP) [Time] 29.9 s Critically high 9.0-11.6 [facility] Comment on above: Performed By: #### P T #### [facility] [address] [address] [address] Tori Mills Tobacco Screening.on 022 Adult depression screening assessment No -[facility] [address] DO Work Phone: Fall risk assessment a) No falls within the last year [facility] [address] DO Work Phone: Tobacco use status CP a) Yes M P-[facility] [address] DO Work Phone: Tobacco Screening. Yes [facility] [facility] [place] [facility] [address] DO Work Phone: Tobacco Screening. 0-Not at all [facility] [place] [facility] [address] DO Work Phone: PROTIMEon 08-05-2021 INR Coag (PPP) [Relative time] 3.03 {INR} Normal [facility] Comment on above: Performed By: #### P T #### [facility] [address] [place] [address] Dr. Tori Mills INR GUIDELINES SEE BELOW Normal [facility] Comment on above: Result Comment: FRANCI RED INR: 2.0 - 3.0 CONDITIONS NOT LISTED BELOW 2.5 - 3.5 FOR PROSTHETIC HEART VALVE REPLACEMENT 2.5 - 3.5 RECURRENT THROMBOSIS Performed By: #### P T #### [facility] [address] [address] [address] Tori Mills PT Coag (PPP) [Time] 30.4 s Critically high 9.0-11.6 [facility] Comment on above: Performed By: #### P T #### [facility] [address] [place] [address] Dr. Tori Mills PROTIMEon 07-09-2021 INR Coag (PPP) [Relative time] 2.36 {INR} Normal [facility] Comment on above: Performed By: #### B SAMARIA MORILLO #### [facility] [address] [place] [address] Dr. Tori Mills INR GUIDELINES SEE BELOW Normal [facility] Comment on above: Result Comment: FRANCI RED INR: 2.0 - 3.0 CONDITIONS NOT LISTED BELOW 2.5 - 3.5 FOR PROSTHETIC HEART VALVE REPLACEMENT 2.5 - 3.5 RECURRENT THROMBOSIS Performed By: #### B SAMARIA MORILLO #### [facility] [address] [place] [address] Dr. Tori Mills PT Coag (PPP) [Time] 24.1 s Critically high 9.0-11.6 [facility] Comment on above: Performed By: #### B SAMARIA MORILLO #### [facility] [address] [place] [address] Dr. Tori Mills No Panel Informationon 04-01 Normal -[facility] [place] [address] DO Work Phone: Vital Signs Date Time Vital Sign Value Performing Clinician Facility 10-21-2023 10:37-0400 Diastolic blood pressure 72 mm[Hg] Israel Escamilla MD Work Phone: [facility] 10-21-2023 10:37-0400 Heart rate 74 /min Israel Escamilla MD Work Phone: [facility] 10-21-2023 10:37-0400 Systolic blood pressure 102 mm[Hg] Israel Escamilla MD Work Phone: [facility] 10-21-2023 10:34-0400 Body height 170.2 cm Israel Escamilla MD Work Phone: [facility] 10-21-2023 10:34-0400 Body mass index (BMI) [Ratio] 27.57 kg/m2 Israel Escamilla MD Work Phone: [facility] 10-21-2023 10:34-0400 Body weight 79.83 kg Isreal Escamilla MD Work Phone: [facility] 04-13-2023 10:44-0500 Body height 167.6 cm Israel Escamilla MD Work Phone: [facility] 04-13-2023 10:44-0500 Body mass index (BMI) [Ratio] 28.89 kg/m2 Israel Escamilla MD Work Phone: [facility] 04-13-2023 10:44-0500 Body weight 81.19 kg Israel Escamilla MD Work Phone: [facility] 04-13-2023 10:44-0500 Diastolic blood pressure 78 mm[Hg] Israel Escamilla MD Work Phone: [facility] 04-13-2023 10:44-0500 Heart rate 71 /min Israel Escamilla MD Work Phone: [facility] 04-13-2023 10:44-0500 Systolic blood pressure 134 mm[Hg] Israel Escamilla MD Work Phone: [facility] 10-07-2022 15:40-0400 Body height 170.18 cm Pablo Goodman Naderer Work Phone: [facility] [address] DO Work Phone: 10-07-2022 15:40-0400 Body mass index (BMI) [Ratio] 29.45 kg/m2 Pablo Goodman Naderer Work Phone: [facility] 250 DO Work Phone: 10-07-2022 15:40-0400 Body surface area Derived from formula 1.97 m2 Pablo Goodman Naderer Work Phone: [facility] [address] DO Work Phone: 10-07-2022 15:40-0400 Body weight 85.28 kg Pablo Goodman Naderer Work Phone: [facility] [address] DO Work Phone: 10-07-2022 15:40-0400 Diastolic blood pressure 76 mm[Hg] Pablo Goodman Naderer Work Phone: [facility] [address] DO Work Phone: 10-07-2022 15:40-0400 Heart rate 75 /min Pablo Goodman Naderer Work Phone: [facility] [address] DO Work Phone: 10-07-2022 15:40-0400 Systolic blood pressure 130 mm[Hg] Pablo Goodman Naderer Work Phone: [facility] [address] DO Work Phone: 09-30-2022 11:24-0400 Diastolic blood pressure 80 mm[Hg] Pablo Goodman Laverneerer Work Phone: [facility] [address] DO Work Phone: 09-30-2022 11:24-0400 Systolic blood pressure 118 mm[Hg] Pablo Goodman Laverneerer Work Phone: [facility] [address] DO Work Phone: 09-30-2022 11:13-0400 Body height 170.18 cm Pablo Goodman Naderer Work Phone: [facility] [address] DO Work Phone: 09-30-2022 11:13-0400 Body mass index (BMI) [Ratio] 29.29 kg/m2 Pablo Goodman Naderer Work Phone: [facility] [address] DO Work Phone: 09-30-2022 11:13-0400 Body surface area Derived from formula 1.97 m2 Pablo Goodman Naderer Work Phone: [facility] [address] DO Work Phone: 09-30-2022 11:13-0400 Body weight 84.82 kg Pablo Goodman Naderer Work Phone: [facility] [address] DO Work Phone: 09-30-2022 11:13-0400 Diastolic blood pressure 88 mm[Hg] Pablo Goodman Naderer Work Phone: [facility] [address] DO Work Phone: 09-30-2022 11:13-0400 Heart rate 78 /min Pablo Goodman Naderer Work Phone: [facility] [address] DO Work Phone: 09-30-2022 11:13-0400 Systolic blood pressure 140 mm[Hg] Pablo Maxine Naderer Work Phone: [facility] [address] DO Work Phone: 09-03-2022 14:07-0400 Diastolic blood pressure 75 mm[Hg] MD Consuelo Johnson Work Phone: [facility] 09-03-2022 14:07-0400 Heart rate 69 /min MD Consuelo Johnson Work Phone: [facility] 09-03-2022 14:07-0400 Respiratory rate 16 /min MD Consuelo Johnson Work Phone: [facility] 09-03-2022 14:07-0400 SaO2% (BldA) [Mass fraction] 97 % MD Cordero Asaroldan Work Phone: [facility] 09-03-2022 14:07-0400 Systolic blood pressure 121 mm[Hg] MD Consuelo Jonhson Work Phone: [facility] 09-03-2022 11:43-0400 Body height 170.18 cm MD Consuelo Johnson Work Phone: [facility] 04-06-2023 11:43-0400 Body temperature 97.6 [degF] MD Consuelo Johnson Work Phone: [facility] 09-03-2022 11:43-0400 Body weight 81.64 kg MD Consuelo Johnson Work Phone: [facility] 08-20-2022 09:37-0400 Body temperature 97.6 [degF] MD Consuelo Johnson Work Phone: [facility] 08-20-2022 09:37-0400 Body weight 84.5 kg MD Consuelo Johnson Work Phone: [facility] 08-20-2022 09:37-0400 Diastolic blood pressure 83 mm[Hg] MD Consuelo Johnson Work Phone: [facility] 08-20-2022 09:37-0400 Heart rate 86 /min MD Consuelo Johnson Work Phone: [facility] 08-20-2022 09:37-0400 Respiratory rate 20 /min MD Consuelo Johnson Work Phone: [facility] 08-20-2022 09:37-0400 SaO2% (BldA) [Mass fraction] 93 % MD Consuelo Johnson Work Phone: [facility] 08-20-2022 09:37-0400 Systolic blood pressure 135 mm[Hg] MD Consuelo Johnson Work Phone: [facility] 08-05-2022 11:41-0500 Body height 170.18 cm Pablo Abreu Work Phone: GB-Meairuhrel-QRP [facility] [address] [place] Work Phone: 08-05-2022 11:41-0500 Body mass index (BMI) [Ratio] 29.13 kg/m2 Pablo Abreu Work Phone: VD-Hzmhpqaphc-JLR [facility] [address] [place] Work Phone: 08-05-2022 11:41-0500 Body surface area Derived from formula 1.96 m2 Pablo Gallowayerer Work Phone: PP-Qnwmitoyiw-LJF [facility] [address] [place] Work Phone: 08-05-2022 11:41-0500 Body temperature 96.6 [degF] Pablo Gallowayerer Work Phone: IS-Uvspltaxbt-SVG [facility] [address] [place] Work Phone: 08-05-2022 11:41-0500 Body weight 84.37 kg Pablo Goodman Naderer Work Phone: VE-Uqlslsjoxd-VRB [facility] [address] [place] Work Phone: 08-05-2022 11:41-0500 Diastolic blood pressure 84 mm[Hg] Pablo Gallowayerer Work Phone: WW-Koopbuyufl-KNL [facility] [address] [place] Work Phone: 08-05-2022 11:41-0500 Heart rate 82 /min Pablo Gallowayerer Work Phone: HS-Rsnhruycpp-ILP [facility] [address] [place] Work Phone: 08-05-2022 11:41-0500 Respiratory rate 16 /min Pablo Gallowayerer Work Phone: MB-Savsurprsk-BTY [facility] [address] [place] Work Phone: 08-05-2022 11:41-0500 SaO2% (BldA) [Mass fraction] 96 % Pablo Gallowayerer Work Phone: PP-Kmjwgexsnf-ZHE [facility] [address] [place] Work Phone: 08-05-2022 11:41-0500 Systolic blood pressure 146 mm[Hg] Pablo Gallowayerer Work Phone: KD-Wovpbwcohz-MVG [facility] [address] [place] Work Phone: 08-03-2022 15:06-0500 Body weight 83.4 kg MD Imad Asaad Work Phone: [facility] 08-03-2022 15:06-0500 Diastolic blood pressure 96 mm[Hg] MD Cordero Asaad Work Phone: [facility] 08-03-2022 15:06-0500 Heart rate 86 /min MD Cordero Asaad Work Phone: [facility] 08-03-2022 15:06-0500 Respiratory rate 16 /min MD Cordero Asaad Work Phone: [facility] 08-03-2022 15:06-0500 SaO2% (BldA) [Mass fraction] 98 % MD Cordero Asaad Work Phone: [facility] 08-03-2022 15:06-0500 Systolic blood pressure 162 mm[Hg] MD Cordero Asaad Work Phone: [facility] 08-03-2022 14:49-0500 Body height 170.18 cm MD Cordero Asaad Work Phone: [facility] 07-29-2022 13:15-0500 Body height 167.64 cm Imad Asaad Other [facility] [employer] Other 07-29-2022 13:15-0500 Body mass index (BMI) [Ratio] 30.99 kg/m2 Imad Asaad Other [facility] Other 07-29-2022 13:15-0500 Body weight 87.09 kg Imad Asaad Other [facility] Other 07-29-2022 13:15-0500 Diastolic blood pressure 78 mm[Hg] Imad Asaad Other [facility] Other 07-29-2022 13:15-0500 Systolic blood pressure 127 mm[Hg] Imad Asaad Other [facility] [employer] Other 06-08-2022 13:44-0500 Body height 170.18 cm Pablo Goodman Naderer Work Phone: [facility] [address] DO Work Phone: 06-08-2022 13:44-0500 Body mass index (BMI) [Ratio] 28.98 kg/m2 Pablo Goodman Naderer Work Phone: [facility] [address] DO Work Phone: 06-08-2022 13:44-0500 Body surface area Derived from formula 1.96 m2 Pablo Goodman Naderer Work Phone: [facility] [address] DO Work Phone: 06-08-2022 13:44-0500 Body weight 83.92 kg Pablo Goodman Naderer Work Phone: [facility] [address] DO Work Phone: 06-08-2022 13:44-0500 Diastolic blood pressure 80 mm[Hg] Pablo Goodman Naderer Work Phone: [facility] [address] DO Work Phone: 06-08-2022 13:44-0500 Diastolic blood pressure 70 mm[Hg] Pablo Goodman Naderer Work Phone: [facility] [address] DO Work Phone: 06-08-2022 13:44-0500 Diastolic blood pressure 50 mm[Hg] Pablo Goodman Naderer Work Phone: [facility] [address] DO Work Phone: 06-08-2022 13:44-0500 Systolic blood pressure 122 mm[Hg] Pablo Goodman Naderer Work Phone: [facility] [address] DO Work Phone: 06-08-2022 13:44-0500 Systolic blood pressure 102 mm[Hg] Pablo Goodman Naderer Work Phone: [facility] [address] DO Work Phone: 06-08-2022 13:44-0500 Systolic blood pressure 82 mm[Hg] Pablo A Naderer Work Phone: [facility] [address] DO Work Phone: 06-08-2022 13:44-0500 75 1 Pablo A Naderer Work Phone: [facility] [address] DO Work Phone: Comment on above: [employer] 04-10-2022 14:17-0500 Body height 170.18 cm Pablo A Naderer Work Phone: [facility] [address] DO Work Phone: 04-10-2022 14:17-0500 Body mass index (BMI) [Ratio] 29.45 kg/m2 Pablo A Naderer Work Phone: [facility] [address] DO Work Phone: 04-10-2022 14:17-0500 Body surface area Derived from formula 1.97 m2 Pablo A Naderer Work Phone: [facility] [address] DO Work Phone: 04-10-2022 14:17-0500 Body weight 85.28 kg Pablo A Naderer Work Phone: [facility] [address] DO Work Phone: 04-10-2022 14:17-0500 Diastolic blood pressure 86 mm[Hg] Pablo A Naderer Work Phone: [facility] [address] DO Work Phone: 04-10-2022 14:17-0500 Heart rate 77 /min Pablo A Naderer Work Phone: [facility] DO Work Phone: 04-10-2022 14:17-0500 Systolic blood pressure 118 mm[Hg] Pablo [facility]breu Work Phone[facility] Work Phone: 11-27-2021 14:35-0400 Body height 167.64 cm Nataliia Koch Other [facility] Other 11-27-2021 14:35-0400 Body mass index (BMI) [Ratio] 30.66 kg/m2 Nataliia Koch Other [facility] Other 11-27-2021 14:35-0400 Body temperature 97.7 [degF] Nataliia Koch Other [facility] Other 11-27-2021 14:35-0400 Body weight 86.18 kg Nataliia Koch Other [facility] Other 11-27-2021 14:35-0400 Diastolic blood pressure 75 mm[Hg] Nataliia Koch Other [facility] Other 11-27-2021 14:35-0400 Respiratory rate 18 /min Nataliia Koch Other [facility] Other 11-27-2021 14:35-0400 SaO2% (BldA) [Mass fraction] 99 % Nataliia Koch Other [facility] Other 11-27-2021 14:35-0400 Systolic blood pressure 124 mm[Hg] Nataliia Koch Other [facility] Other 08-21-2021 11:11-0400 Heart rate 69 /min Pablo Goodman Naderer Work Phone: [facility] [address] DO Work Phone: 08-21-2021 10:59-0400 Body height 170.18 cm Pablo Goodman Naderer Work Phone: [facility] [address] DO Work Phone: 08-21-2021 10:59-0400 Body mass index (BMI) [Ratio] 30.54 kg/m2 Pablo Goodman Naderer Work Phone: [facility] 250 DO Work Phone: 08-21-2021 10:59-0400 Body surface area Derived from formula 2 m2 Pablo Goodman Naderer Work Phone: [facility] DO Work Phone: 08-21-2021 10:59-0400 Body weight 88.45 kg Pablo Goodman Naderer Work Phone: [facility] [address] DO Work Phone: 08-21-2021 10:59-0400 Diastolic blood pressure 84 mm[Hg] Pablo Goodman Naderer Work Phone: [facility] 250 DO Work Phone: 08-21-2021 10:59-0400 Systolic blood pressure 128 mm[Hg] Pablo Maxine Naderer Work Phone: [facility] 250 DO Work Phone: 04-01-2021 12:00-0400 52 [phone] Pablo A Naderer Work Phone: [facility] [address] [place] Work Phone: Comment on above: [id number] Encounters Encounter Date Encounter Type Care Provider Facility Start: 12-06-2023 End: 12-06-2023 ambulatory PABLO ABREU Not Available Start: 11-04-2023 End: 11-04-2023 ambulatory PABLO NURR Not Available Start: 10-21-2023 End: 10-21-2023 ambulatory [facility] Amb[facility] Start: 10-21-2023 End: 10-21-2023 Office outpatient visit 25 minutes Israel Escamilla MD Work Phone: [facility] Comment on above: Atrial fibrillation and flutter (Multi) (Primary Dx); Orthostatic hypotension; Presence of Watchman left atrial appendage closure device; 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; Mixed hyperlipidemia; Type 2 diabetes mellitus without complication, without long-term current use of insulin (Multi); Current every day smoker; Overweight with body mass index (BMI) of 27 to 27.9 in adult Start: 09-09-2023 End: 09-09-2023 ambulatory PABLO ABREU Not Available Start: 07-19-2023 End: 07-19-2023 ambulatory PABLO ABREU Not Available Start: 04-13-2023 End: 04-13-2023 ambulatory [facility] Start: 04-13-2023 End: 04-13-2023 Office outpatient visit 25 minutes Israel Escamilla MD Work Phone: [facility] Comment on above: Atrial fibrillation and flutter (CMS/HCC); 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 :[id number] Start: 12-24-2022 End: 12-24-2022 ambulatory Pablo Abreu Facility:[facility] Start: 12-24-2022 End: 12-24-2022 ambulatory MD Pablo Abreu Work Phone: [facility] Work Phone: Start: 12-24-2022 End: 12-24-2022 Patient encounter procedure MD Pablo Abreu Work Phone: [facility] [place] Work Phone: Start: 11-02-2022 Chart Update Pablo Abreu Work Phone: [facility] 250 DO Work Phone: Start: 10-29-2022 End: 10-29-2022 ambulatory Pablo Abreu Facility:[facility] Start: 10-29-2022 End: 10-29-2022 ambulatory MD Consuelo Johnson Work Phone: [facility] [place] Work Phone: Start: 10-29-2022 End: 10-29-2022 Patient encounter procedure MD Consuelo Johnson Work Phone: [facility] [place] Work Phone: Start: 10-07-2022 Patient encounter procedure Pablo Abreu Work Phone: [facility] 250 DO Work Phone: Start: 10-07-2022 ambulatory Wood Escamilla Facility : Start: 09-30-2022 Office outpatient visit 25 minutes Pablo Abreu Work Phone: [facility] 250 DO Work Phone: Start: 09-30-2022 ambulatory Wood Escamilla Facility : Start: 09-03-2022 End: 09-03-2022 Admission to same day surgery center MD Consuelo Johnson Work Phone: [facility] [place] Work Phone: Start: 09-02-2022 Chart Update Pablo Abreu Work Phone: [id number] [address] [place] [address] [place] Work Phone: Start: 08-25-2022 Encounter for examination for normal comparison and control in clinical research program Dr. Katia Alex [facility] Start: 08-25-2022 ambulatory MANAGER SKILLED MECHE CEJA ZONIA JIMENEZPaula Facility:[facility] Start: 08-25-2022 End: 08-25-2022 Evaluation and management of inpatient Dr. Katia Alex Facility:[facility] Start: 08-20-2022 End: 08-20-2022 ambulatory MD Consuelo Johnson Work Phone: [facility] [place] Work Phone: Start: 08-20-2022 End: 08-20-2022 Registered Recurring MD Consuelo Johnson [facility] Phone: [facility] Work Phone: Start: 08-07-2022 AUDIT Pablo Abreu Work Phone: [facility] [place] [address] [place] Work Phone: Start: 08-05-[address] Katia Alex Facility:[id number] Start: 08-03-2022 End: 08-03-2022 ambulatory MD Consuelo Johnson Work Phone: [facility] [place] Work Phone: Start: 08-03-2022 End: 08-03-2022 Registered Recurring MD Consuelo Johnson [facility] Work Phone: Start: 07-31-2022 Patient encounter procedure Pablo Abreu Work Phone: [facility] 250 DO Work Phone: Start: 07-29-2022 End: 07-29-2022 ambulatory Consuelo Johnson Other [facility] [employer] Other Start: 07-29-2022 [facility] visit new patient Consuelo LAWLER [facility] Start: 07-02-2022 End: 07-03-[address] PABLO ABREU Facility:[facility] Start: 06-16-2022 End: 06-16-[address] PABLO ABREU Facility:[facility] Start: 06-12-2022 End: 06-14-2022 ambulatory HECTOR FAN . Facility:[facility] Start: 06-08-[address] Pablo Abreu Facility: Start: 06-08-2022 Patient encounter procedure Pablo Abreu Work Phone: [facility] 250 DO Work Phone: Start: 06-02-2022 End: 06-30-[address] PABLO ABREU Facility:[facility]1 Start: 05-26-2022 End: 05-27-[address] PABLO ABREU Facility:[facility]1 Start: 04-10-2022 Office outpatient visit 25 minutes Pablo Abreu Work Phone: [facility] 250 DO Work Phone: Start: 04-10-2022 ambulatory Woodjames Kurtzim Facility : Start: 04-01-2022 End: 04-29-[address] PABLO ABREU Facility:[facility]1 Start: 03-16-2022 End: 03-30-[address] PABLO ABREU Facility:[facility]1 Start: 03-02-2022 AUDIT Pablo Abreu Work Phone: [facility] 250 DO Work Phone: Start: 02-25-2022 Rx Renewal Pablo Abreu Work Phone: [facility] 250 DO Work Phone: Start: 02-09-2022 Rx Renewal Pablo [facility]breu [facility] Work Phone: Start: 02-05-2022 End: 02-28-[address] PABLO ABREU Facility:[facility]1 Start: 01-26-2022 End: 01-26-2022 ambulatory Nataliia Koch Other [place] [facility] Other Start: 01-26-2022 Telephone encounter Nataliia johnson [facility] [employer] Start: 12-31-2021 End: 01-28-[address] PABLO ABREU Facility:[facility]1 Start: 12-03-2021 End: 12-26-[address] PABLO ABREU Facility:[facility] Start: 11-27-2021 End: 11-27-2021 ambulatory Nataliia Koch Other [place] [facility] Other Start: 11-27-2021 Office outpatient ne w 20 minutes Nataliia Koch [facility] Start: 11-13-2021 End: 11-28-[address] PABLO ABREU Facility:[facility] Start: 10-05-2021 End: 10-05-[address] RUDDY CEBALLOS Facility:[facility]1 Start: 10-02-2021 End: 10-28-[address] PABLO ABREU Facility:[facility]1 Start: 09-03-2021 End: 09-03-[address] PABLO ABREU Facility:[facility]1 Start: 08-21-2021 Office outpatient visit 25 minutes Pablo Abreu Work Phone: [facility] 250 DO Work Phone: Start: 08-05-2021 End: 08-28-[address] PABLO ABREU Facility:H1 Start: 07-09-2021 End: 07-28-[address] PABLO ABREU Facility:[facility]1 Start: 04-03-2021 Chart Update Pablo Abreu Work Phone: [facility] 600 DO Work Phone: Start: 04-01-2021 Patient encounter procedure Pablo A Naderer Work Phone: [facility] [address] [place] Work Phone: Procedures Date Procedure Procedure Detail Performing Clinician Start: 10-21-2023 Ecg routine ecg w/least 12 lds w/i&r Israel Escamilla MD Work Phone: Start: 04-13-2023 ECG 12-LEAD ISRAEL ESCAMILLA Start: 04-13-2023 Ecg routine ecg w/least 12 lds w/i&r Israel Escamilla MD Work Phone: Start: 09-03-2022 Esophagogastroduodenoscopy MD Consuelo Johnson Work Phone: Start: 08-25-2022 Echocardiography Pablo Abreu Work Phone: Start: 08-25-2022 Echocardiography Pablo Abreu Work Phone: Start: 07-02-[address] PABLO ABREU Comment on above: Performed By: #### OBSCRN #### [facility] [address] [place] [address] Dr. Tori Mills Start: 06-23-2015 Total colonoscopy Pablo Abreu Work Phone: Atrial appendage aries sure device insertion Pablo Abreu Work Phone: Elbow joint operations Pablo Nurr Work Phone: Procedure on back Pablo borrero Work Phone: Repair of inguinal hernia Debbie Goodman Naderer Work Phone: Vasectomy Pablo Abreu Work Phone: Plan of Treatment Date Care Activity Detail Author Start: 10-06-2031 DTaP/Tdap/Td Vaccines (2 - Tdap) DTaP/Tdap/Td Vaccines (2 - Tdap) [facility] Start: 05-18-2024 End: 05-18-2024 Patient encounter procedure 05/18/2024 9:50 AM EST Office Visit [place] [id number] [id number] Israel Escamilla MD [address] [facility] [address] [place] [address] [facility] Start: 10-21-2023 End: 10-21-2023 Patient encounter procedure 10/21/2023 10:20 AM EDT Office Visit [facility] [address] [place] [phone] Israel Escamilla MD [address] [place] [address] [facility] Start: 04-13-2023 End: 04-13-2024 Alanine aminotransferase [Enzymatic activity/volume] in Serum or Plasma by With P-5'-P Alanine Aminotransferase Lab Routine Atrial fibrillation and flutter (CMS/HCC) Expected: 04/13/2023 (Approximate), Expires: 04/13/2024 [facility] Service Area Work Phone: Comment on above: Expected: 04/13/2023 (Approximate), Expi res: 04/13/2024 Start: 04-13-2023 End: 04-13-2024 Aspartate aminotransferase [Enzymatic activity/volume] in Serum or Plasma by With P-5'-P Aspartate Aminotransferase Lab Routine Atrial fibrillation and flutter (CMS/HCC) Expected: 04/13/2023 (Approximate), Expires: 04/13/2024 [facility] Work Phone: Comment on above: Expected: 04/13/2023 (Approximate), Expi res: 04/13/2024 Start: 04-13-2023 End: 04-13-2024 Basic metabolic 2000 panel - Serum or Plasma Basic Metabolic Panel Lab Routine Atrial fibrillation and flutter (CMS/HCC) Expected: 04/13/2023 (Approximate), Expires: 04/13/2024 [facility] Work Phone: Comment on above: Expected: 04/13/2023 (Approximate), Expi res: 04/13/2024 Start: 04-13-2023 End: 04-13-2024 CBC panel - Blood by Automated count CBC Lab Routine Atrial fibrillation and flutter (CMS/HCC) Expected: 04/13/2023 (Approximate), Expires: 04/13/2024 [facility] Work Phone: Comment on above: Expected: 04/13/2023 (Approximate), Expi res: 04/13/2024 Start: 04-13-2023 End: 04-13-2024 Lipid 1996 panel - Serum or Plasma Lipid Panel Lab Routine Atrial fibrillation and flutter (CMS/HCC) Coronary artery disease involving kobuk heart without angina pectoris, unspecified vessel or lesion type Expected: 04/13/2023 (Approximate), Expires: 04/13/2024 [facility] Work Phone: Comment on above: Expected: 04/13/2023 (Approximate), Expi res: 04/13/2024 Start: 04-13-2023 FUV, Provider: Israel Escamilla, Status: Pen, Time: 10:40 AM FUV, Provider: Israel Escamilla, Status: Pen, Time: 10:40 AM [facility] 250 DO Work Phone: Start: 03-26-2023 COVID-19 Vaccine (3 - Booster for Brandon series) COVID-19 Vaccine (3 - Booster for Brandon series) [facility] Start: 03-26-2023 COVID-19 Vaccine ( season) COVID-19 Vaccine ( season) [facility] Start: 10-07-2022 EKG, Provider: MARCO CARABALLO ROLL CLAMP OPERATOR 1,[id number], Status: Pen, Time: 3:00 PM EKG, Provider: MARCO CARABALLO ROLL CLAMP OPERATOR 1,[id number], Status: Pen, Time: 3:00 PM [facility] 250 DO Work Phone: Start: 09-30-2022 FUV, Provider: Israel Escamilla, Status: Pen, Time: 11:00 AM FUV, Provider: Israel Escamilla, Status: Pen, Time: 11:00 AM -[facility] 250 DO Work Phone: Start: 09-03-2022 [facility] Start: 06-11-2022 Zoster Vaccines (3 of 3) Zoster Vaccines (3 of 3) [facility] Start: 04-10-2022 FUV, Provider: Israel Escamilla, Status: Pen, Time: 2:10 PM FUV, Provider: Israel Escamilla, Status: Pen, Time: 2:10 PM -[facility] 250 DO Work Phone: Start: 03-11-2022 FUV, Provider: Israel Escamilla, Status: Pen, Time: 10:00 AM FUV, Provider: Israel Escamilla, Status: Pen, Time: 10:00 AM [facility] 250 DO Work Phone: Start: 08-07-2021 FUV, Provider: Israel Escamilla, Status: Pen, Time: 10:40 AM FUV, Provider: Israel Escamilla, Status: Pen, Time: 10:40 AM -[facility] 600 DO Work Phone: Start: 2014 Abdominal aortic aneurysm screening Abdominal Aortic Aneurysm (AAA) Screening [facility] Start: 1968 Urine screening for protein Diabetes: Urine Protein Screening [facility] Start: 10-19-1967 Hepatitis C screening Hepatitis C Screening [facility] Start: 10-19-1959 Diabetic foot examination Diabetes: Foot Exam [facility] Start: 10-19-1959 Glaucoma screening Diabetes: Retinopathy Screening [facility] Start: 1949 Hemoglobin A1c measurement Diabetes: Hemoglobin A1C [facility] Start: 1949 Lipid panel Lipid Panel [facility] Start: 1949 Medicare Annual Wellness Visit Medicare Annual Wellness Visit (AWV) [facility] Start: 1949 Screening for malignant neoplasm of colon [facility] Comprehensive metabo lic 2000 panel - Serum or Plasma [facility] Ferritin [Mass/volum e] in Serum or Plasma [facility] Haptoglobin [Mass/vo lume] in Serum or Plasma [facility] Lactate dehydrogenas e [Enzymatic activity/volume] in Unspecified specimen [facility] Patient Education Hemorrhoids (D C) Diverticulosis (DC) Gastritis (DC) [facility] Work Phone: [facility] Immunizations Immunization Date Immunization Notes Care Provider Fa winifred 04-16-2022 zoster vaccine, unspecified formulation Israel Escamilla MD Work Phone: [facility] Work Phone: 04-06-2022 zoster vaccine recombinant Pablo [facility]u [facility] DO Work Phone: 02-21-2022 Fluzone High-Dose Quadrivalent 0.7 ML Intramuscular Suspension Prefilled Syringe Pablo [facility]u [facility] Work Phone: 02-21-2022 influenza, seasonal, injectable Israel Escamilla MD Work Phone: [facility] Work Phone: 02-21-2022 Pfizer COVID-19 Vac Bivalent 30 MCG/0.3ML Intramuscular Suspension Pablo Abreu Work Phone: [facility] 250 DO Work Phone: 10-05-2021 diphtheria, tetanus toxoids and pertussis vaccine Pablo Abreu Work Phone: [facility] 04-23-2021 influenza, seasonal, injectable Israel Escamilla MD Work Phone: [facility] Work Phone: 04-10-2021 Brandon COVID-19 Vac cine 0.5 ML Intramuscular Suspension Pablo Abreu Work Phone: [facility] 250 DO Work Phone: 04-03-2021 Fluad Quadrivalent 0 .5 ML Intramuscular Prefilled Syringe Pablo A Naderer Work Phone: [facility] 250 DO Work Phone: 08-05-2020 Brandon COVID-19 Vac cine 0.5 ML Intramuscular Suspension Pablo A Naderer Work Phone: [facility] 600 DO Work Phone: 02-12-2020 influenza, injectabl e, quadrivalent, preservative free Pablo A Naderer Work Phone: [facility] 600 DO Work Phone: 05-31-2019 influenza, seasonal, injectable Pablo A Naderer Work Phone: [facility] 600 DO Work Phone: 03-06-2019 pneumococcal polysaccharide vaccine, 23 valent Pablo A Naderer Work Phone: [facility] 03-06-2019 Seasonal trivalent influenza vaccine, adjuvanted, preservative free Pablo A Naderer Work Phone: [facility] 600 DO Work Phone: 03-02-2018 Seasonal trivalent influenza vaccine, adjuvanted, preservative free Pablo A Naderer Work Phone: [facility] 600 DO Work Phone: 02-22-2017 influenza, injectabl e, quadrivalent, preservative free Pablo A Naderer Work Phone: [facility] 600 DO Work Phone: 07-22-2016 influenza, injectabl e, quadrivalent, preservative free Pablo A Naderer Work Phone: [facility] 600 DO Work Phone: 07-22-2016 pneumococcal polysaccharide vaccine, 23 valent Pablo A Naderer Work Phone: [facility] 03-20-2016 influenza, high dose seasonal, preservative-free Pablo Goodman Naderer Work Phone: [facility] 600 DO Work Phone: 03-20-2016 pneumococcal conjuga te vaccine, 13 valent Pablo Goodman Naderer Work Phone: [facility] 02-25-2015 influenza, high dose seasonal, preservative-free Pablo A Naderer Work Phone: [facility] 600 DO Work Phone: 07-09-2014 zoster vaccine, live Pablo Goodman Naderer Work Phone: [facility] 05-31-2014 pneumococcal polysaccharide vaccine, 23 valent Pablo Goodman Naderer Work Phone: [facility] 600 DO Work Phone: 02-22-2013 influenza, seasonal, injectable Pablo Goodman Naderer Work Phone: [facility] 600 DO Work Phone: Payers Date Payer Category Payer Self-pay [id number] 2018 Medicare [id number] 1959 Medicare [id number] 2. [id number] 1949 Unknown [id number] 2.16.84 0.1.392038.3.579.2.593 1949 Unknown [id number] 2.16.84 0.1.946906.3.579.2.593 1949 Unknown [id number] 2.16.84 0.1.084819.3.579.2.593 1949 Unknown [id number] 2.16.84 0.1.706355.3.579.2.593 1949 Unknown [id number] 2.16.84 0.1.309201.3.579.2.593 1949 Unknown [id number] 2.16.84 0.1.112688.3.579.2.593 1949 Unknown [id number] 2.16.84 0.1.178206.3.579.2.593 1949 Unknown [id number] 2.16.84 0.1.632400.3.579.2.593 1949 Unknown [id number] 2.16.84 0.1.488034.3.579.2.593 1949 Unknown [id number] 2.16.84 0.1.521044.3.579.2.593 1949 Unknown [id number] 2.16.84 0.1.597042.3.579.2.593 1949 Unknown [id number] 2.16.84 0.1.810286.3.579.2.593 1949 Unknown [id number] 2.16.84 0.1.183112.3.579.2.593 1949 Unknown [id number] 2.16.84 0.1.250613.3.579.2.593 1949 Unknown [id number] 2.16.84 0.1.922826.3.579.2.593 1949 Unknown [id number] 2.16.84 0.1.753278.3.579.2.593 1949 Unknown [id number] 2.16.84 0.1.731196.3.579.2.593 1949 Unknown [id number] 2.16. 840.1.284839.3.579.2.356 1949 Unknown [id number] 2.16. 840.1.099323.3.579.2.356 1949 Unknown [id number] 2.16. 840.1.445487.3.579.2.356 1949 Unknown [id number] 2.16. 840.1.354260.3.579.2.356 1949 Unknown [id number] 2.16. 840.1.643367.3.579.2.356 1949 Unknown [id number] 2.16. 840.1.922614.3.579.2.356 1949 Unknown [id number] 2.16. 840.1.465750.3.579.2.356 1949 Unknown [id number] 2.16.8 40.1.441368.3.579.2.1068 1949 Unknown [id number] 2.16.8 40.1.125131.3.579.2.1068 1949 Unknown [id number] 2.16.8 40.1.858838.3.579.2.1244 1949 Unknown [id number] 2.16.8 40.1.785716.3.579.2.1244 1949 Unknown [id number] 2.16.84 0.1.823794.3.579.2.1259 1949 Unknown [id number] 2.16.84 0.1.518522.3.579.2.1259 1949 Unknown [id number] 2.16.84 0.1.675984.3.579.2.1259 1949 Unknown [id number] 2.16.84 0.1.037622.3.579.2.1259 Medicare Medicare [id number] Unknown ANTHEM MEDICARE ADV Unknown [id number] 2.16.8 40.1.040995.3.579.2.531 Unknown [id number] 2.16.8 40.1.915133.3.579.2.531 Social History Date Type Detail Facility Start: 04-13-2023 End: 10-21-2023 No alcohol use No alcohol use -[facility] 250 DO Work Phone: Comment on above: 2 pots coffee daily; 1 ppd; Start: 04-13-2023 End: 10-21-2023 Sex Assigned At [facility] [email or web address] Other Start: 08-03-2022 End: 09-03-2022 Tobacco smoking status NHIS Smoker (finding) [facility] Start: 1950 Sex Assigned At Male F [facility] Start: 04-13-2023 Tobacco smoking status [facility] Smokes tobacco daily [facility] History of tobacco use Cigarette Smoker [facility] Work Phone: Start: 04-13-2023 Tobacco use and exposure Smokeless tobacco non-user [facility] Work Phone: Start: 04-13-2023 End: 10-21-2023 Alcohol intake Lifetime non-drinker (finding) [facility] Work Phone: Start: 1950 [facility]: Start: 04-03-2023 End: 10-21-2023 Exposure to SARS-CoV-2 (event) Not sure [facility] Goals Date Patient Goal Desired Activity /State Clinical Notes 11-27-2021 to 10-21-2023 Otilia Cahudhary MA - 10/21/2023 10:20 AM Jose Escamilla MD - 10/21/2023 10:20 AM EDTPatient Mario Escamilla MD - 04/13/2023 10:40 AM ESTPatient Instructions Note Date & Type Note Facility 10-21-2023 History of Present illness Narrative Subjective Sen Garcia is a 73 y.o. male Chief Complaint Follow-up HPI Review of Systems Respiratory: Positive for shortness of breath. Neurological: Positive for dizziness. Vitals: 10/21/23 1034 10/21/23 1035 10/21/23 1036 10/21/23 1037 BP: 100/72 140/90 100/72 102/72 BP Location: Right arm Right arm Right arm Right arm Patient Position: Sitting Lying Sitting Standing Pulse: 74 74 74 74 Weight: 79.8 kg (176 lb) Height: 1.702 m (5' 7 ) No results found for this or any previous visit (from the past 4464 hour(s)). Objective Physical Exam Constitutional: Appearance: Normal appearance. HENT: Nose: Nose normal. Neck: Vascular: No carotid bruit. Cardiovascular: Rate and Rhythm: Normal rate. Pulses: Normal pulses. Heart sounds: Normal heart sounds. Pulmonary: Effort: Pulmonary effort is normal. Abdominal: General: Bowel sounds are normal. Palpations: Abdomen is soft. Musculoskeletal: General: Normal range of motion. Cervical back: Normal range of motion. Right lower leg: No edema. Left lower leg: No edema. Skin: General: Skin is warm and dry. Neurological: General: No focal deficit present. Mental Status: He is alert. Psychiatric: Mood and Affect: Mood normal. Behavior: Behavior normal. Thought Content: Thought content normal. Judgment: Judgment normal. Allergies Patient has no known allergies. Current Medications Current Outpatient Medications: aspirin 81 mg EC tablet, Take 1 tablet (81 mg) by mouth once daily. Take one tablet by mouth every Wednesday and only, Disp: , Rfl: clopidogrel (Plavix) 75 mg tablet, Take 1 tablet (75 mg) by mouth once daily., Disp: 90 tablet, Rfl: 3 cyclobenzaprine (Flexeril) 10 mg tablet, Take 1 tablet (10 mg) by mouth once daily as needed for muscle spasms., Disp: , Rfl: docusate sodium (Colace) 100 mg capsule, Take 1 capsule (100 mg) by mouth 2 times a day., Disp: , Rfl: HYDROcodone-acetaminophen (Picher) 7.5-325 mg tablet, Take 1 tablet by mouth every 6 hours if needed., Disp: , Rfl: midodrine (Proamatine) 5 mg tablet, take 1 tablet by mouth twice a day, Disp: 180 tablet, Rfl: 3 omeprazole (PriLOSEC) [address] capsule, Take 1 capsule (40 mg) by mouth once daily., Disp: , Rfl: pioglitazone (Actos) 15 mg tablet, Take 1 tablet (15 mg) by mouth once daily., Disp: , Rfl: simvastatin (Zocor) 40 mg tablet, Take 1 tablet (40 mg) by mouth once daily at bedtime., Disp: , Rfl: sotalol (Betapace) 80 mg tablet, take 1 tablet by mouth twice a day, Disp: 180 tablet, Rfl: 3 tamsulosin (Flomax) 0.4 mg 24 hr capsule, Take 1 capsule (0.4 mg) by mouth once daily., Disp: , Rfl: venlafaxine (Effexor) 75 mg tablet, Take 1 tablet (75 mg) by mouth once daily., Disp: , Rfl: zolpidem (Ambien) 10 mg tablet, Take 1 tablet (10 mg) by mouth once daily at bedtime., Disp: , Rfl: Assessment/Plan 1. Orthostatic hypotension 2. Atrial fibrillation and flutter (Multi) Follow Up In Cardiology 3. Presence of Watchman left atrial appendage closure device 4. 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 Mixed hyperlipidemia 6. Type 2 diabetes mellitus without complication, without long-term current use of insulin (Multi) 7. Current every day smoker 8. Overweight with body mass index (BMI) of 27 to 27.9 in adult Scribe Attestation By signing my name below, I, Jyothi Jerez LPN, Scribe attest that this documentation has been prepared under the direction and in the presence of Israel Escamilla MD. Provider Attestation - Scribe documentation All medical record entries made by the Scribe were at my direction and personally dictated by me. I have reviewed the chart and agree that the record accurately reflects my personal performance of the history, physical exam, discussion and plan. Subjective Sen Garcia is a 73 y.o. male Chief Complaint Follow-up HPI Patient is in the office for follow-up for the problems noted below. Recently has been falling down frequently and at appears to me this is caused by orthostatic hypotension which was confirmed in the office today despite being on midodrine 5 mg twice daily. His EKG revealed normal sinus rhythm he has no breakthrough atrial fibrillation. He has no chest pain. He is still smoking and apparently he was never able to quit smoking. He does not seem to have significant COPD on examination today. His weight is unchanged from previously. His cardiac and pulmonary examinations are unremarkable. Assessment/recommendations: 1-paroxysmal atrial fibrillation currently in sinus rhythm, he is on sotalol, he is status post watchman's device August [address] [facility] with no complications. 2-orthostatic hypotension that is significant leading to frequent falls. No syncope. He is diabetic and I believe this is autonomic dysfunction. Will increase midodrine up to 10 mg 3 times daily. 3-COPD that is mild, advised patient to [...] history of stroke with no residual deficit 9-active tobacco abuse, was counseled for tobacco cessation ROS Vitals: 10/21/23 1034 10/21/23 1035 10/21/23 1036 10/21/23 1037 BP: 100/72 140/90 100/72 102/72 BP Location: Right arm Right arm Right arm Right arm Patient Position: Sitting Lying Sitting Standing Pulse: 74 74 74 74 Weight: 79.8 kg (176 lb) Height: 1.702 m (5' 7 ) Objective Physical Exam Allergies Patient has no known allergies. Current Medications Current Outpatient Medications: aspirin 81 mg EC tablet, Take 1 tablet (81 mg) by mouth once daily. Take one tablet by mouth every Wednesday and only, Disp: , Rfl: clopidogrel (Plavix) 75 mg tablet, Take 1 tablet (75 mg) by mouth once daily., Disp: 90 tablet, Rfl: 3 cyclobenzaprine (Flexeril) 10 mg tablet, Take 1 tablet (10 mg) by mouth once daily as needed for muscle spasms., Disp: , Rfl: docusate sodium (Colace) 100 mg capsule, Take 1 capsule (100 mg) by mouth 2 times a day., Disp: , Rfl: HYDROcodone-acetaminophen (Picher) 7.5-325 mg tablet, Take 1 tablet by [...] , Rfl: sotalol (Betapace) 80 mg tablet, take 1 tablet by mouth twice a day, Disp: 180 tablet, Rfl: 3 tamsulosin (Flomax) 0.4 mg 24 hr capsule, Take 1 capsule (0.4 mg) by mouth once daily., Disp: , Rfl: venlafaxine (Effexor) 75 mg tablet, Take 1 tablet (75 mg) by mouth once daily., Disp: , Rfl: zolpidem (Ambien) 10 mg tablet, Take 1 tablet (10 mg) by mouth once daily at bedtime., Disp: , Rfl: midodrine (Proamatine) 10 mg tablet, Take 1 tablet (10 mg) by mouth 3 times daily (morning, midday, late afternoon)., Disp: 270 tablet, Rfl: 3 Assessment/Plan 1. Atrial fibrillation and flutter (Multi) Follow Up In Cardiology Follow Up In Cardiology ECG 12 Lead 2. Orthostatic hypotension midodrine (Proamatine) 10 mg tablet 3. Presence of Watchman left atrial appendage closure device 4. 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 Mixed hyperlipidemia 6. Type 2 diabetes mellitus without complication, without long-term current use of insulin (Multi) 7. Current every day smoker 8. Overweight with body mass index (BMI) of 27 to 27.9 in adult Scribe Attestation By signing my name below, DENICE Tsai LPN, Scribe attest that this documentation has been prepared under the direction and in the presence of Israel Escamilla MD. Provider Attestation - Scribe documentation All medical record entries made by the Scribe were at my direction and personally dictated by me. I have reviewed the chart and agree that the record accurately reflects my personal performance of the history, physical exam, discussion and plan. documented in this encounter [facility] Work Phone: 10-21-2023 Instructions Jyothi Wallis LPN - 10/21/2023 10:20 AM EDT Please bring all medicines, vitamins, and herbal supplements with you when you come to the office. Prescriptions will not be filled unless you are compliant with your follow up appointments or have a follow up appointment scheduled as per instruction of your physician. Refills should be requested at the time of your visit. BMI was above normal measurement. Current weight: 79.8 kg (176 lb) Weight change since last visit (-) denotes wt loss -3 lbs Weight loss needed to achieve BMI 25: 16.7 Lbs Weight loss needed to achieve BMI 30: -15.1 Lbs Provided instructions on dietary changes. Midodrine 10 mg one tablet 3 times daily documented in this encounter [facility] Work Phone: 04-13-2023 History of Present illness Narrative Subjective [...] status post watchman's device August [address] [facility] with no complications. 2-active tobacco abuse, education [...] times a day., Disp: , Rfl: HYDROcodone-acetaminophen (Picher) 7.5-325 mg tablet, Take 1 tablet by [...] Lipid Panel 2. 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 3. Mixed hyperlipidemia 4. Type 2 diabetes mellitus without complication, without long-term current use of insulin (CMS/HCC) 5. Cerebrovascular accident (CVA), unspecified mechanism (CMS/HCC) 6. Chronic obstructive pulmonary disease, unspecified COPD type (CMS/HCC) 7. Current every day smoker 8. Coronary artery disease involving kobuk heart without angina pectoris, unspecified vessel or lesion type Lipid Panel Lipid Panel documented in this encounter [facility] Work Phone: 04-13-2023 Instructions Sloane Mabry LPN [...] of your visit. documented in this encounter [facility] Work Phone: 08-25-2022 Note Send Summary: Discharge Summary Providers: Provider RoleProvider Name AttendingKatia Alex Note Recipients: Israel Escamilla MD - [id number] [preferred] Pablo Abreu MD - [id number] [] Discharge: Summary: Admission Date: .25-Aug-2022 08:32:00 [...] dry, intact. Hospital Course: PCP: Dr. 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 Escamilla I was asked by Dr. [...] groin No e (more content not included)... [facility] 08-25-2022 Note History & Physical R eviewed: [...] the note. I personally evaluated the patient [id number] Electronic Signatures: Katia Alex) (Signed 25-Aug-2022 14:22) Authored: Note Completion Co-Signer: History & Physical Reviewed, Airway/Sedation, ERAS, Consent, Note Completion Eloisa Fallon (Fellow)) (Signed 25-Aug-2022 12:33) Authored: History & Physical Reviewed, Airway/Sedation, ERAS, Consent, Note Completion Last Updated: 25-Aug-2022 14:22 by Katia Alex) [facility] 08-25-2022 Note Clinical Note - Phar krysta v2: Education: Document TopicMedication Education MedicationMeds to Beds: Patient accepts Meds to Beds service at discharge, please send prescriptions to [facility]. Sources used to confirm home medication list: - Patient interview (provided written home med list) - AEMR med list vs. Fill history (at [facility]) - OARRS (Picher 7.5-325mg filled 07/30/22 #120 x 30DS; Flexeril 10mg filled 07/29/22 #270 x 90DS; Ambien 10mg filled 07/03/22 #90 x 90DS) Aspirin 81mg daily: DISCONTINUED at end of May due to bleeding Statin: Simvastatin 40 mg daily P2Y12 inhibitor: not prescribed Anticoagulant: warfarin DISCONTINUED at end of May due to bleeding Medication reconciliation complete Please reach out via Fanmode for questions. Or if no response, please call [facility] or [facility]. 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 [facility] Is This Intervention Medication Reconciliation Relatedyes Time [id number] minutes Additional NotesHome Medications Review Status for [...] (PharmD) (Signed 25-Aug-2022 10:42) Authored: Education, Allergy Nocero, Joanne ([facility]) (Signed 25-Aug-2022 14:07) Co-Signer: Education, Allergy Last Updated: 25-Aug-2022 14:07 by Joanne Lim ([facility]) [facility] 08-11-2022 Consult note Note Date/Time August 09, 2022 1:37pm [facility] [place] [address] Hem/Onc Consult Note - OP Signed Patient: Sen Garcia MR#: [id number] : 1950 Acct:[id number] Age/Sex: 71 / M Type: REG RCR [...] [facility]: Dear Dr. Johnson, I have seen your patient in consultation and would like to thank you for the courtesy of your referral. As you know, Mr. Sen Garcia is a 71-year-old gentleman with a past medical history of: Hypertension, diabetes mellitus, COPD, obesity, CVA, PVD, CAD?status post WI, BPH, chronic back pain (status post L5 [...] was admitted to outside hospital - [facility] and had several PRBC transfusions. He underwent EGD and colonoscopy by Dr. Obrien on 06/16/2022; which was essentially negative for any obvious source of bleeding andhe was recommended for follow up with wireless capsule endoscopy. Labs from [facility] dated: 06/16/2022 reveal a WBC count [...] function. CT abdomen/pelvis dated 06/16/2022 at the [facility] revealed no acute findings. He has been [...] further obvious GI bleeding or blood loss. [facility] - Medical History Medical History: Medical History [...] % (Auto) 59.9, Lymph % (Auto) 29.4, [place] % (Auto) 9.1, Eos % (Auto) 1.0, Baso % (Auto) 0.6, Nucleat RBC Rel Count 0.2, Neut # (Auto) 3.4, Lymph # (Auto) 1.7, [place] # (Auto) 0.5, Eos # (Auto) 0.1, [...] was admitted to outside hospital - [facility] and had several PRBC transfusions. Labs from [facility] dated: 06/16/2022 reveal a WBC count [...] Acute presentation of significant GI bleed to [facility] in May 2022;in the setting of chronic anticoagulation with Coumadin + ASA. During his inpatient admission at [place]; he underwent EGD and colonoscopy by Dr. Obrien on 06/16/2022; which was essentially negative for any obvious source of bleeding and he was recommended for follow up with wireless capsule endoscopy. CT abdomen/pelvis dated 06/16/2022 at the [facility] revealed no acute findings. The patient has since seen Dr. Johnson at [facility] Gastroenterology and is in the process of [...] for coordination of care (as documented) and [id number] counseling of patient and/or family. Dictated By: Mellissa Padilla APRN DD/ 1336 Signed By: <Electronically signed by MISA Padilla> 08/11/22 1103 [facility] Work Phone: 1(181) 252-149403-01-2023 Evaluation note* Encounter Date Diagnosis Assessment Notes Treatment Notes Treatment Clinical Notes Jul, Acute GI bleeding (ICD-10 - K92.2) Pt to follow up with regulator inspector-pt has appt on 09-30-22 Jul, Anemia (ICD-10 - D64.9) Will arrange EGD with push enteroscopy and colonoscopy-if negative will proceed with capsule endoscopy Jul, Rectal bleeding (ICD-10 - K62.5) [facility] Other 06-30-2022 Evaluation note* Encounter Date Diagnosis Assessment Notes Treatment Notes Treatment Clinical Notes Oct, Infection of mouth (ICD-10 - K12.2) Take medication as directed. Complete all doses. Sent referral to oral surgeon since it is requirement to be seen [facility] Other Evaluzfgnj noteNo InformationNort [employer] Other Evaluation noteNo assessment information available [facility] Work Phone: Evalupnyyr note* Diagnosis Onset Date Resolution Status GI bleed acute Thrombocytopenia acute Anemia due to blood loss chr onic [facility] Work Phone: Evaluation note* Diagnosis Atrial fibrillation and flutter (CMS/HCC) Coronary artery disease involving kobuk heart without angina pectoris, unspecified vessel or lesion type Mixed hyperlipidemia Type 2 diabetes mellitus without complication, without long-term current use of insulin (CMS/HCC) Cerebrovascular accident (CVA), unspecified mechanism (CMS/HCC) Chronic obstructive pulmonary disease, unspecified COPD type (CMS/HCC) Current every day smoker documented in this encounter [facility] Work Phone: Evaluation note* Diagnosis Atrial fibrillation and flutter (Multi)- Primary Orthostatic hypotension Presence of Watchman left atrial appendage closure device 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 Mixed hyperlipidemia Type 2 diabetes mellitus without complication, without long-term current use of insulin (Multi) Current every day smoker Overweight with body mass index (BMI) of 27 to 27.9 in adult documented in this encounter [facility] Work Phone: History general Narrative - Reported* Type Description Date Medical History heart attack Medical History stroke Medical History [facility] Other History general Narrative - Reported* Type Description Date Medical History heart attack Medical History stroke Medical History depression Surgical History low back Surgical History lt elbow Surgical History rt elbow Hospitalization History see above Hospitalization History stroke Hospitalization History [facility] Other Reason for referral (narrative)* Consultation (Routine) - Authorized Specialty Diagnoses / Procedures Referred By Jose johnson Referred To Contact Cardiology Diagnoses Atrial fibrillation and flutter (CMS/HCC) Procedures Follow Up In Cardiology Israel Escamilla MD [address] [address], [address] [address] Israel Escamilla MD [address] [facility] 2, [address] [address] Referral ID Status Reason Start Date Expiration Date V isits Requested Visits Authorized [id number] Authorized 04/13/2023 04/12/2024 1 1 * Cardiovascular (Routine) - Pending Review Specialty Diagnoses / Procedures Referred By Contac t Referred To Contact Diagnoses Atrial fibrillation and flutter (CMS/HCC) Procedures ECG 12 Lead Isarel Escamilla MD [address] [facility] 2, [facility] [address] [place] [address] Referral ID Status Reason Start Date Expiration Date V isits Requested Visits Authorized [id number] Pending Review 04/13/2023 04/12/2024 1 1 [facility] Work Phone: Chief Complaint * SEN GARCIA [...] anticoagulationwith Coumadin managed by his PCP in [place] * 2 active tobacco abuse, education provided [...] anticoagulationwith Coumadin managed by his PCP in [place] * 2 active tobacco abuse, education provided [...] after having a watchman's device implanted at [facility] 2022 with no complications. When his medication [...] in gumline causing inflammation - lives in [facility] Diagnosis 1 Infection of mouth ( K12.2) Referral Organization [facility] Referring Provider First Name Nataliia Referring Provider Last Name Zee Referring Provider Specialty Nurse Pract itionerashaad Referred Organization [facility] Referred Address [address],[place], [place],[address] Referred Provider Specialty Oral Surgery Referral Priority Routine General Notes Sadaf Chacon 022 02:09:22 PM >Received and fax referral today to [facility] Clinical Notes Office [phone] Reason 08/03/22 @ 2:30 Pl ease schedule consult to evaluate and treat. Diagnosis 1 Anemia (D64.9) Referral Organization [facility] Referring Provider First Name Imad Referring Provider Last Name Asaroldan Referring Provider Specialty Gastroenter ology Referred Organization [facility] Referred Provider Swati Baum [place] Address [address] [address] [place], [place],[address] Referred Provider Specialty Hematology/O ncology Referral Priority Routine Referral Appointment Date 2022-08-03 General Notes Lauren Fernando 023 11:46:40 AM >RECEIVED TODAY & SENT Lauren Fernando 08/06/2022 11:25:15 AM >SENT 1ST LETTER Lauren Fernando 08/14/2022 09:43:00 AM >CONSULT WAS RECEIVD AND DR JOHNSON REVIEWED IT Specialty Diagnoses / Procedures Referred By Contac t Referred To Contact Diagnoses Atrial fibrillation and flutter (Multi) Procedures ECG 12 Lead Israel Escamilla MD [address] [facility], [place] [address] [place] [address] Referral ID Status Reason Start Date Expiration Date V isits Requested Visits Authorized [id number] Authorized 10/21/2023 10/20/2024 1 1 Specialty Diagnoses / Procedures Referred By Contac t Referred To Contact Cardiology Diagnoses Atrial fibrillation and flutter (Multi) Procedures Follow Up In Cardiology Israel Escamilla MD [address] [facility], [place] [address] [place] [address] Israel Escamilla MD [address] [facility] 2, [address] [address] Referral ID Status Reason Start Date Expiration Date V isits Requested Visits Authorized [id number] Authorized 10/21/2023 10/20/2024 1 1 Summary Purpose Advance Directives No Advanced Directives [...] Contact Cardiology Diagnoses Atrial fibrillation and flutter (Multi) Procedures Follow Up In Cardiology Israel Escamilla MD [address] [facility] 2, [place] [address] [place] [address] Israel Escamilla MD [address] [facility] 2, [address] [place] [address] Referral ID Status Reason Start Date Expiration Date V isits Requested Visits Authorized [id number] Authorized 04/13/2023 04/12/2024 1 1 Specialty Diagnoses / Procedures Referred By Jose johnson Referred To Contact Diagnoses Atrial fibrillation and flutter (CMS/HCC) Procedures ECG 12 Lead Israel Escamilla MD [address] [facility] 2, [address] [address] Referral ID Status Reason Start Date Expiration Date V isits Requested Visits Authorized [id number] Pending Review 04/13/2023 04/12/2024 1 1 (unrecognized sect ion and content) No Status Records FoundNo Status Records FoundNo Status Records FoundNo Status Records FoundNo Status Records FoundNo Status Records FoundNo Status Records Found INFORMATION SOURCE (unrecogn ized section and content) DATE CREATED AUTHOR 07/05/2022 [facility] DATE CREATED AUTHOR AUTHOR'S ORGANIZ ATION 10/03/2022 [facility] DATE CREATED AUTHOR AUTHOR'S ORGANIZ ATION 10/10/2022 [facility] DATE CREATED AUTHOR AUTHOR'S ORGANIZ ATION 01/07/2023 [facility] DATE CREATED AUTHOR AUTHOR'S ORGANIZ ATION 09/27/2023 [facility] DATE CREATED AUTHOR AUTHOR'S ORGANIZ ATION 10/23/2023 [facility] DATE CREATED AUTHOR AUTHOR'S ORGANIZ ATION 12/14/2023 [facility] [employer] Care Teams (unrecognized sec tion and content) [...] Pablo Abreu MD Primary Care Provider Active Project Internship Relationship Specialty Start Date End Date Pablo Abreu MD [address] [place] [address] PCP - General 04/01/21 Project Internship Relationship Specialty Start Date End Date Pablo Abreu MD PCP - General 04/01/21 Goals (unrecognized section [...] BE BASED ON THE PRIMARY CLINICAL RECORDS. [employer] provides no warranty or guarantee of the accuracy or completeness of information in this document.
--- NOTE | 2024-01-27 16:59 | XR_ITS ---
The [address] [address] Patient Name: SEN CARMONA MRN: [id number] date: 1950 Sex: M Assigned Patient Location: ER Current Patient Location: ER Accession/Order Number: [id number] Exam Date: 01/27/2024 17:10 Report Date: 01/27/2024 18:02 At the request of: PHUONG TINOCO Procedure: XR chest 1V EXAM: XR chest 1V HISTORY: Weakness COMPARISON: Chest x-ray 04/20/2023, 06/11/2022 TECHNIQUE: AP upright chest x-ray. FINDINGS: Left hilum is prominent the peripheral markings are prominent. Hilar lesion not excluded although prominent pulmonary artery could produce appearance. No definite focal lung infiltrate or consolidation. Right lung and hilum unremarkable. Normal heart size for technique. No pleural effusion or pneumothorax XR/XR chest 1V IMPRESSION: Mildly prominent left perihilar markings and left hilar soft tissue. May reflect prominent pulmonary artery and incidental lung findings but occult hilar lesion/lung abnormality not excluded.. Consider chest CT with contrast as follow-up. Electronically authenticated by: NEVILLE LOWERY Date: 01/27/2024 18:02
--- NOTE | 2024-01-27 16:59 | ECG_ITS ---
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
--- NOTE | 2024-01-27 16:59 | CT_ITS ---
[address] [address] Patient Name: SEN CARMONA MRN: [id number] date: 1950 Sex: M Assigned Patient Location: ER Current Patient Location: Accession/Order Number: [id number] Exam Date: 01/27/2024 17:59 Report Date: 01/27/2024 20:05 At the request of: PHUONG TINOCO Procedure: CT angio neck EXAM: CT angio head HISTORY: Confusion and visual changes. COMPARISON: Head CT without contrast on 01/27/2024. TECHNIQUE: Following IV administration of iodinated contrast, axial CT scans of the head and neck were obtained. MPR and MIP images images were obtained. In addition, 3-D reconstruction images were generated using a separate independent workstation. Carotid stenosis is based on NASCET criteria. Dose reduction techniques were achieved by using automated exposure control and/or adjustment of mA and/or kV according to patient size and/or the use of an iterative reconstruction technique. FINDINGS: CTA OF THE HEAD: No major branch occlusion or significant intracranial stenosis. No aneurysm. Dural venous sinuses are patent. CTA OF THE NECK: No abnormal soft tissue mass in the neck. The visualized lungs show moderate centrilobular emphysema. A spiculated soft tissue lesion in the left upper lobe and AP window adenopathy are highly suggestive of lung cancer with metastatic lymph nodes. Osseous structures are intact. The aortic arch shows no aneurysm. The great vessels of the aortic arch show no significant stenosis. Vertebral arteries show no significant stenosis or dissection. Common carotids and internal carotids show no significant stenosis or dissection. CT/CT angio neck IMPRESSION: Moderate centrilobular emphysema. A spiculated soft tissue lesion in the left upper lobe and AP window adenopathy are highly suggestive of lung cancer with metastatic disease. No large vessel occlusion. No significant intracranial stenosis. Patent dural venous sinuses. Common carotids, internal carotids, and vertebral arteries show no dissection or significant stenosis. Electronically authenticated by: SANAZ MENDOZA Date: 01/27/2024 20:05
--- NOTE | 2024-01-27 16:59 | CT_ITS ---
The [address] [address] Patient Name: SEN CARMONA MRN: [id number] date: 1950 Sex: M Assigned Patient Location: ER Current Patient Location: ER Accession/Order Number: [id number] Exam Date: 01/27/2024 17:11 Report Date: 01/27/2024 17:37 At the request of: PHUONG TINOCO Procedure: CT stroke head/brain wo con EXAM: CT stroke head/brain wo con HISTORY: Confusion COMPARISON: CT head 04/20/2023. TECHNIQUE: CT brain noncontrast. Axial scans with reformatted coronal and sagittal images. Individualized dose reduction used for this exam. FINDINGS: Chronic findings right cerebral hemisphere including encephalomalacia right insula extending medially along the internal capsule and cephalad along the bronson radiata. Unchanged. Other areas of mild low-attenuation also felt to be chronic. I do not see evidence of hemorrhage or acute edema. No findings suggesting acute stroke. There is beam hardening artifact in the posterior temporal areas right and left adjacent to the skull felt to be incidental. Ventricles sulci mildly prominent consistent with atrophy. Ventricles midline without mass effect or shift. No extra-axial or subdural collection or hematoma. No hyperdense vessel seen around the [place]. No os bone lesion or skull fracture. Visualized mastoid, middle ear cavities and sinuses clear. CT/CT stroke head/brain wo con IMPRESSION: Stable chronic findings most prominent right cerebral hemisphere without evidence of hemorrhage, acute edema or other acute abnormality. Electronically authenticated by: NEVILLE LOWERY Date: 01/27/2024 17:37
--- NOTE | 2024-01-27 16:59 | CT_ITS ---
[address] [address] Patient Name: SEN CARMONA MRN: [id number] date: 1950 Sex: M Assigned Patient Location: ER Current Patient Location: Accession/Order Number: [id number] Exam Date: 01/27/2024 17:59 Report Date: 01/27/2024 20:05 At the request of: PHUONG TINOCO Procedure: CT angio head EXAM: CT angio head HISTORY: Confusion and visual changes. COMPARISON: Head CT without contrast on 01/27/2024. TECHNIQUE: Following IV administration of iodinated contrast, axial CT scans of the head and neck were obtained. MPR and MIP images images were obtained. In addition, 3-D reconstruction images were generated using a separate independent workstation. Carotid stenosis is based on NASCET criteria. Dose reduction techniques were achieved by using automated exposure control and/or adjustment of mA and/or kV according to patient size and/or the use of an iterative reconstruction technique. FINDINGS: CTA OF THE HEAD: No major branch occlusion or significant intracranial stenosis. No aneurysm. Dural venous sinuses are patent. CTA OF THE NECK: No abnormal soft tissue mass in the neck. The visualized lungs show moderate centrilobular emphysema. A spiculated soft tissue lesion in the left upper lobe and AP window adenopathy are highly suggestive of lung cancer with metastatic lymph nodes. Osseous structures are intact. The aortic arch shows no aneurysm. The great vessels of the aortic arch show no significant stenosis. Vertebral arteries show no significant stenosis or dissection. Common carotids and internal carotids show no significant stenosis or dissection. CT/CT angio head IMPRESSION: Moderate centrilobular emphysema. A spiculated soft tissue lesion in the left upper lobe and AP window adenopathy are highly suggestive of lung cancer with metastatic disease. No large vessel occlusion. No significant intracranial stenosis. Patent dural venous sinuses. Common carotids, internal carotids, and vertebral arteries show no dissection or significant stenosis. Electronically authenticated by: SANAZ MENDOZA Date: 01/27/2024 20:05
--- NOTE | 2024-01-27 17:01 | ED.GENADUL1 ---
HPI HPI - General Adult General Chief complaint: Weakness Stated complaint: CON,DIFF BREATH, DIFF SEEING-DR ABREU SENT OVER Time Seen by Provider: 01/27/24 16:54 Source: patient Mode of arrival: walk-in Limitations: no limitations History of Present Illness HPI narrative: Patient is a 73-year-old male with a history of CVA who presents to the emergency department for feeling confused for the last 5 hours. He is alert and oriented to person, place, month although disoriented to the day of the week. He denies any falls or injuries. He denies chest pain. He has chronic shortness of breath from his COPD. His family member at bedside states that he has had issues with confusion previously. Patient denies any peripheral paresthesias. He states he has been eating and drinking, although he admits he has not had anything to eat today. Family member states that he has not been urinating over the last week more than small dribbles. Patient does not complain of abdominal pain. No flank or back pain. He is on Plavix daily. He denies fevers or vomiting. He states symptoms started 5 hours ago while he was running errands. Related Data Home Medications ?Medication ?Instructions ?Recorded ?Confirmed carvedilol 3.125 mg tablet 3.125 mg PO Q12H 04/20/23 05/13/23 clopidogrel 75 mg tablet 75 mg PO DAILY 04/20/23 01/27/24 cyclobenzaprine 10 mg tablet 10 mg PO TID 04/20/23 01/27/24 ferrous sulfate 325 mg (65 mg 325 mg PO BID 04/20/23 01/27/24 iron) tablet (FeroSul) hydrocodone 7.5 mg-acetaminophen 1 tab PO Q6H PRN pain 04/20/23 01/27/24 325 mg tablet omeprazole 40 mg capsule,delayed 40 mg PO DAILY 04/20/23 01/27/24 release pioglitazone 15 mg tablet 15 mg PO DAILY 04/20/23 01/27/24 sotalol 80 mg tablet 80 mg PO Q12H 04/20/23 01/27/24 tamsulosin 0.4 mg capsule 0.8 mg PO DAILY 04/20/23 01/27/24 zolpidem 10 mg tablet 10 mg PO BEDTIME 04/20/23 01/27/24 fluoxetine 20 mg capsule 20 mg PO Q8H 01/27/24 01/27/24 midodrine 10 mg tablet 10 mg PO Q4H 01/27/24 01/27/24 simvastatin 40 mg tablet 40 mg PO DAILY 01/27/24 01/27/24 venlafaxine 150 mg 150 mg PO DAILY 01/27/24 01/27/24 capsule,extended release 24 hr Allergies Allergy/AdvReac Type Severity Reaction Status Date / Time No Known Drug Allergies Allergy Verified 01/27/24 16:51 Opioid HPI Opioid Management Most Recent Opioid Data: Ur Phencyclidine Scrn Negative (NEGATIVE) 01/27/24 18:16 Review of Systems ROS Constitutional Denies: fever or chills Ears, nose, mouth, and throat Denies: throat pain or nasal congestion Cardiovascular Denies: chest pain Respiratory Reports: shortness of breath and cough Gastrointestinal Denies: abdominal pain, nausea, vomiting or diarrhea Genitourinary Reports: difficulty urinating; Denies: painful urination Musculoskeletal Denies: back pain or neck pain Integumentary/Breast Denies: rash Neurological Reports: confusion; Denies: headache, numbness in extremities, weakness in extremities or slurred speech Hematologic/Lymphatic Denies: easy bruising or easy bleeding PFSH PFSH Social History Smoking status: Current every day smoker Exam Narrative Exam Narrative: Gen.: Awake, alert, in no distress Head: Normocephalic, atraumatic ENT: Moist mucous membranes Respiratory: No respiratory distress, lungs clear bilaterally Cardio: Regular rate and rhythm Gastrointestinal: Abdomen is soft, nondistended and nontender to palpation Extremities: Moves extremities equally, no injuries noted Psych: Normal mood and affect Neuro: No focal neuro deficit Skin: Warm, dry, intact Constitutional Vital Signs, click to edit/add: Last Vital Signs Temp 97.9 F 01/27/24 16:45 Pulse 81 01/27/24 19:30 Resp 24 H 01/27/24 19:30 BP 107/72 01/27/24 19:30 Pulse Ox 98 01/27/24 19:30 O2 Del Method Room Air 01/27/24 16:45 Course Vital Signs Vital signs: Vital Signs Temperature 97.9 F 01/27/24 16:45 Pulse Rate 75 01/27/24 16:45 Respiratory Rate 20 01/27/24 16:45 Blood Pressure 116/76 01/27/24 16:45 Pulse Oximetry 98 01/27/24 16:45 Oxygen Delivery Method Room Air 01/27/24 16:45 Temperature 97.9 F 01/27/24 16:45 Pulse Rate 81 01/27/24 19:30 Respiratory Rate 24 H 01/27/24 19:30 Blood Pressure 107/72 01/27/24 19:30 Pulse Oximetry 98 01/27/24 19:30 Oxygen Delivery Method Room Air 01/27/24 16:45 Medical Decision Making MDM Narrative Medical decision making narrative: Patient on arrival with no focal neurodeficits, vital signs within normal limits. Bladder scan did not show any urinary retention. Patient was treated with IV fluids, he was sent for stroke protocol noncontrast CT of the brain which was unremarkable as well as sent for chest x-ray, follow-up CT of the chest due to abnormal chest x-ray findings and CT angio of the head and neck due to confusion. Angiography studies of the head and neck are unremarkable with no focal areas of occlusion. Patient is significantly clinically improved after IV fluids. Suspect he has not been eating and drinking well, patient's son at bedside states that they have noticed in the last week that the patient has not been himself and has been weaker than normal. CT of the chest shows the patient has a 3 cm area in the left upper lung concerning for bronchogenic carcinoma with other associated areas to the liver and right adrenal gland concerning for metastasis. I discussed the case with Dr. Borges for oncology who recommended that if the patient did not feel comfortable going home, he could be admitted and potentially see the patient tomorrow. I offered the patient admission versus outpatient treatment, the patient is adamant that he feels much better, his son at bedside is in agreement with this and he would like to be treated as an outpatient. He requests a referral for the [facility] cancer center in [place], his is apparently being treated there currently and he prefers to follow-up there. I did contact [facility] but they do not have a [facility] oncologist on-call so the patient was instructed just to call the office tomorrow to establish a follow-up appointment. He is hemodynamically stable on my reevaluation prior to discharge. He understands he should return to the emergency department at any time if his symptoms change or worsen. Patient's son at bedside is in agreement with discharge home to follow-up as an outpatient. SUPERVISED APC VISIT, PHYSICIAN ATTESTATION: Based on the medical record the care appears appropriate. ? Medical Records Medical records reviewed: Yes I reviewed the patient's medical records Lab Data Lab results reviewed: Yes I reviewed the patient's lab results Labs: Lab Results 01/27/24 01/27/24 Range/Units 16:50 18:16 WBC 8.2 (4.0-11.0) 10^3/uL RBC 4.46 L (4.70-6.10) 10^6/uL Hgb 15.0 (14.0-18.0) g/dL Hct 43.5 (42.0-54.0) % MCV 97.5 H (80.0-94.0) fL MCH 33.6 (25.9-34.0) pg MCHC 34.5 (29.9-35.2) g/dL RDW 12.1 (11.0-15.0) % Plt Count 144 L (150-450) 10^3/uL MPV 11.7 (9.5-13.5) fL Neut % (Auto) 66.2 (43.0-75.0) % Lymph % (Auto) 21.2 (20.5-60.0) % [place] % (Auto) 11.0 (1.7-12.0) % Eos % (Auto) 0.6 L (0.9-7.0) % Baso % (Auto) 0.6 (0.2-2.0) % Neut # (Auto) 5.4 (1.4-6.5) 10^3/uL Lymph # (Auto) 1.7 (1.2-3.8) 10^3/uL [place] # (Auto) 0.9 H (0.3-0.8) 10^3/uL Eos # (Auto) 0.1 (0.0-0.7) 10^3/uL Baso # (Auto) 0.1 (0.0-0.1) 10^3/uL Abs Immat Gran (auto) 0.03 (0.00-0.03) 10^3/uL Imm/Tot Granulo (auto) 0.4 (0.0-0.5) % PT 11.1 (9.0-11.6) sec INR 1.05 Sodium 139 (136-145) mmol/L Potassium 4.5 (3.5-5.1) mmol/L Chloride 101 (98-107) mmol/L Carbon Dioxide 30.8 (21.0-32.0) mmol/L Anion Gap 11.7 BUN 20.0 H (7.0-18.0) mg/dL Creatinine 0.73 (0.70-1.30) mg/dL Est GFR ( Amer) >60 (>=60) Est GFR (Non-Af Amer) >60 (>=60) BUN/Creatinine Ratio 27.4 Glucose 112 H (74-106) mg/dL Lactate 0.9 (0.4-2.0) mmol/L Calcium 10.0 (8.5-10.1) mg/dL Magnesium 1.9 (1.8-2.4) mg/dL Total Bilirubin 0.7 (0.2-1.0) mg/dL AST 25 (15-37) U/L ALT 29 (16-63) U/L Alkaline Phosphatase 75 (46-116) U/L Troponin I High Sens 4.4 (4.0-76.1) pg/mL Total Protein 7.2 (6.4-8.2) g/dL Albumin 3.9 (3.4-5.0) g/dL Globulin 3.3 g/dL Albumin/Globulin Ratio 1.2 TSH 1.586 (0.358-3.740) uIU/mL Urine Color Yellow (YELLOW) Urine Clarity Clear (CLEAR) Urine pH 6.0 (5.0-9.0) Ur Specific [place] 1.015 (1.005-1.025) Urine Protein Negative (NEG/TRACE) mg/dL Urine Glucose (UA) Negative (NEGATIVE) mg/dL Urine Ketones Negative (NEGATIVE) mg/dL Urine Occult Blood Negative (NEGATIVE) Urine Nitrite Negative (NEGATIVE) Urine Bilirubin Negative (NEGATIVE) Urine Urobilinogen 0.2 (0.2-1.0) EU/dL Ur Leukocyte Esterase Negative (NEGATIVE) Urine Opiates Screen Positive A (NEGATIVE) Ur Buprenorphine Scrn Negative (NEGATIVE) Ur Oxycodone Screen Negative (NEGATIVE) Urine Methadone Screen Negative (NEGATIVE) Ur Barbiturates Screen Negative (NEGATIVE) U Tricyclic Antidepress Negative (NEGATIVE) Ur Phencyclidine Scrn Negative (NEGATIVE) Ur Amphetamines Screen Negative (NEGATIVE) U Methamphetamines Scrn Negative (NEGATIVE) U Benzodiazepines Scrn Positive A (NEGATIVE) Urine Cocaine Screen Negative (NEGATIVE) U Cannabinoids Screen Negative (NEGATIVE) Ethanol Quant <3 mg/dL Imaging Data CT scan - head: Attestation: I have reviewed the pertinent imaging results. Radiologist's impression: ITS Impressions Brain CT 01/27/24 16:59 IMPRESSION: Stable chronic findings most prominent right cerebral hemisphere without evidence of hemorrhage, acute edema or other acute abnormality. Electronically authenticated by: NEVILLE LOWERY Date: 01/27/2024 17:37 Chest X-Ray 01/27/24 16:59 IMPRESSION: Mildly prominent left perihilar markings and left hilar soft tissue. May reflect prominent pulmonary artery and incidental lung findings but occult hilar lesion/lung abnormality not excluded.. Consider chest CT with contrast as follow-up. Electronically authenticated by: NEVILLE LOWERY Date: 01/27/2024 18:02 Head CTA 01/27/24 16:59 IMPRESSION: Moderate centrilobular emphysema. A spiculated soft tissue lesion in the left upper lobe and AP window adenopathy are highly suggestive of lung cancer with metastatic disease. No large vessel occlusion. No significant intracranial stenosis. Patent dural venous sinuses. Common carotids, internal carotids, and vertebral arteries show no dissection or significant stenosis. Electronically authenticated by: SANAZ MENDOZA Date: 01/27/2024 20:[address] 01/27/24 18:05 IMPRESSION: a 1.1 x 3.1 cm left apical spiculated parenchymal soft tissue density,, extending to the left hilum with surrounding tree-in-bud opacities, Suspicious for bronchogenic carcinoma. Other differential diagnosis is infection such as tuberculosis. a 0.8 cm left lower lobe pulmonary nodule. AP window, bilateral paratracheal and left hilar lymph nodes with central low density, measuring up to 1.5 cm, can be due to infection or neoplasm. A 4.7 cm hypoenhancing right hepatic lobe lesion, new compared to the study from 06/16/2022, highly suspicious for metastasis. Nodular thickening of right adrenal gland, measuring 1.7 cm, new, suspicious for metastasis. Electronically authenticated by: NATALIA FAGAN Date: 01/27/2024 19:27 ECG Data Attestation: I personally reviewed and interpreted this ECG as follows: (Normal sinus rhythm at a rate of [address] elevation or ectopy. EKG reviewed by attending physician) Discharge Plan Discharge Stand Alone Forms: Portal Instructions Chief Complaint: Weakness Clinical Impression: Weakness, Mass of left lung Patient Disposition: Home, Self-Care Time of Disposition Decision: 20:25 Condition: Good Prescriptions / Home Meds: No Action clopidogrel 75 mg tablet 75 mg PO DAILY omeprazole 40 mg capsule,delayed release(DR/EC) 40 mg PO DAILY zolpidem 10 mg tablet 10 mg PO BEDTIME tamsulosin 0.4 mg capsule 0.8 mg PO DAILY sotalol 80 mg tablet 80 mg PO Q12H pioglitazone 15 mg tablet 15 mg PO DAILY hydrocodone-acetaminophen 7.5-325 mg tablet 1 tab PO Q6H PRN (Reason: pain) ferrous sulfate [FeroSul] 325 mg (65 mg iron) tablet 325 mg PO BID cyclobenzaprine 10 mg tablet 10 mg PO TID carvedilol 3.125 mg tablet 3.125 mg PO Q12H fluoxetine 20 mg capsule 20 mg PO Q8H midodrine 10 mg tablet 10 mg PO Q4H simvastatin 40 mg tablet 40 mg PO DAILY venlafaxine 150 mg capsule,extended release 24hr 150 mg PO DAILY Print Language: Yakut Instructions: Weakness (ED) Additional Instructions: [facility], [address] ?,?[place]?[address] tel:[phone] Referrals: Tashia Borges MD [Physician] - As needed Pablo Abreu MD [Primary Care Provider] - 1 week
[2024-01-27] MEDS: 0.9 % SODIUM CHLORIDE 1,000 ML 999 ML IV (17:14)
[2024-01-27 17:17] LABS: Basophils Absolute Auto 0.1 10^3/uL (0.0-0.1); Basophils Percent Auto 0.6 % (0.2-2.0); Eosinophils Absolute Auto 0.1 10^3/uL (0.0-0.7); Eosinophils Percent Auto 0.6 % (0.9-7.0); Hematocrit 43.5 % (42.0-54.0); Immature Granulocytes Abs Auto 0.03 10^3/uL (0.00-0.03); Immature Granulocytes Pct Auto 0.4 % (0.0-0.5); Lymphocytes Absolute Auto 1.7 10^3/uL (1.2-3.8); Lymphocytes Percent Auto 21.2 % (20.5-60.0); Mean Corpuscular HGB Conc 34.5 g/dL (29.9-35.2); Mean Corpuscular Hemoglobin 33.6 pg (25.9-34.0); Mean Corpuscular Volume 97.5 fL (80.0-94.0); Monocytes Absolute Auto 0.9 10^3/uL (0.3-0.8); Neutrophils Absolute Auto 5.4 10^3/uL (1.4-6.5); Neutrophils Percent Auto 66.2 % (43.0-75.0); Red Blood Count 4.46 10^6/uL (4.70-6.10); Red Cell Distribution Width 12.1 % (11.0-15.0); White Blood Count 8.2 10^3/uL (4.0-11.0)
[2024-01-27 17:32] LABS: INR 1.05; Prothrombin Time 11.1 sec (9.0-11.6)
[2024-01-27 17:35] LABS: Alanine Aminotransferase 29 U/L (16-63); Albumin Globulin Ratio 1.2; Albumin Level 3.9 g/dL (3.4-5.0); Alkaline Phosphatase 75 U/L (46-116); Anion Gap 11.7; Aspartate Amino Transferase 25 U/L (15-37); BUN Creatinine Ratio 27.4; Bilirubin Total 0.7 mg/dL (0.2-1.0); Carbon Dioxide 30.8 mmol/L (21.0-32.0); Chloride 101 mmol/L (98-107); Estimated GFR (African America >60 (>=60); Estimated GFR (Non-African Ame >60 (>=60); Globulin 3.3 g/dL; Glucose 112 mg/dL (74-106); Magnesium 1.9 mg/dL (1.8-2.4); Potassium 4.5 mmol/L (3.5-5.1); Sodium 139 mmol/L (136-145); Total Protein 7.2 g/dL (6.4-8.2)
[2024-01-27 17:36] LABS: Lactate/Lactic Acid 0.9 mmol/L (0.4-2.0)
[2024-01-27 17:42] LABS: Ethanol <3 mg/dL; Thyroid Stimulating Hormone 1.586 uIU/mL (0.358-3.740); Troponin I High Sensitivity 4.4 pg/mL (4.0-76.1)
--- NOTE | 2024-01-27 18:05 | CT_ITS ---
[address] [address] Patient Name: SEN CARMONA MRN: [id number] date: 1950 Sex: M Assigned Patient Location: ER Current Patient Location: [facility] Accession/Order Number: [id number] Exam Date: 01/27/2024 18:08 Report Date: 01/27/2024 19:27 At the request of: PHUONG TINOCO Procedure: CT chest wo con EXAM: CT chest wo con HISTORY: abnormal xray COMPARISON: None. TECHNIQUE: Axial CT imaging was performed through the chest without intravenous contrast. Multiplanar reformats were performed. Dose reduction techniques were achieved by using automated exposure control and/or adjustment of mA and/or kV according to patient size and/or use of iterative reconstruction technique. FINDINGS: Lungs: Moderate bilateral centrilobular emphysema. No pneumothorax or effusion. There is a 1.1 x 3.1 cm left apical spiculated parenchymal soft tissue density,, extending to the left hilum with surrounding tree-in-bud opacities . There is a 0.8 cm left lower lobe pulmonary nodule. Airways: Normal. Mediastinum: AP window, bilateral paratracheal and left hilar lymph nodes with central low density, measuring up to 1.5 cm, can be due to infection or neoplasm. There are subcarinal and right hilar calcified lymph nodes. Aorta: No aneurysm. Cardiac: Normal size. No pericardial effusion. Left atrial appendage closure device. Coronary Arteries: Coronary calcifications are absent. Pulmonary vasculature: Normal morphology. Bones: No acute bony abnormality. Axilla: No adenopathy. Thyroid gland: No abnormality demonstrated on provided imaging. Soft tissues: Unremarkable. Upper abdomen: There is a 4.7 cm hypoenhancing right hepatic lobe lesion, new compared to the study from 06/16/2022, highly suspicious for metastasis. Nodular thickening of right adrenal gland, measuring 1.7 cm, new, suspicious for metastasis. Other findings: None. CT/CT chest wo con IMPRESSION: a 1.1 x 3.1 cm left apical spiculated parenchymal soft tissue density,, extending to the left hilum with surrounding tree-in-bud opacities, Suspicious for bronchogenic carcinoma. Other differential diagnosis is infection such as tuberculosis. a 0.8 cm left lower lobe pulmonary nodule. AP window, bilateral paratracheal and left hilar lymph nodes with central low density, measuring up to 1.5 cm, can be due to infection or neoplasm. A 4.7 cm hypoenhancing right hepatic lobe lesion, new compared to the study from 06/16/2022, highly suspicious for metastasis. Nodular thickening of right adrenal gland, measuring 1.7 cm, new, suspicious for metastasis. Electronically authenticated by: NATALIA FAGAN Date: 01/27/2024 19:27
[2024-01-27 18:23] LABS: Mean Platelet Volume 11.7 fL (9.5-13.5); Platelet Count 144 10^3/uL (150-450)
[2024-01-27 18:31] LABS: Bilirubin Urine NEGATIVE (NEGATIVE); Blood Urine NEGATIVE (NEGATIVE); Clarity Urine CLEAR (CLEAR); Color Urine YELLOW (YELLOW); Glucose Urine UA NEGATIVE (NEGATIVE); Ketones Urine NEGATIVE (NEGATIVE); Leukocyte Esterase Urine NEGATIVE (NEGATIVE); Nitrite Urine NEGATIVE (NEGATIVE); Protein Urine NEGATIVE (NEG/TRACE); Specific Gravity Urine 1.015 (1.005-1.025); Urobilinogen Urine 0.2 EU/dL (0.2-1.0)
[2024-01-27 18:41] LABS: Urine Microscopic Indicated NO
[2024-01-27 18:49] LABS: Amphetamine Screen Urine NEGATIVE (NEGATIVE); Barbiturates Screen Urine NEGATIVE (NEGATIVE); Benzodiazepines Screen Urine POSITIVE (NEGATIVE); Cannabinoid Screen Urine NEGATIVE (NEGATIVE); Cocaine Screen Urine NEGATIVE (NEGATIVE); Methadone Screen Urine NEGATIVE (NEGATIVE); Methamphetamines Screen Urine NEGATIVE (NEGATIVE); Opiate Screen Urine POSITIVE (NEGATIVE); Phencyclidine Screen Urine NEGATIVE (NEGATIVE); Tricyclic Antidepressant Urine NEGATIVE (NEGATIVE)
[2024-01-27 18:50] LABS: Buprenorphine Screen Urine NEGATIVE (NEGATIVE); Oxycodone Screen Urine NEGATIVE (NEGATIVE)
--- NOTE | 2024-01-27 19:31 | PC.NURSE ---
Patient resting in bed with son at bedside. He is a/o x4 at this time. Son states that he seems much better now than when they arrived, he is more alert, he looks better and he is responding appropriately. Patient states he feels much better. They are aware that test results are still pending.
== END 2024-01-27 20:40 | disposition home or self-care (01) ==
PROVIDERS: Physician Assistant; Emergency Provider Emergency Medicine; PCP Family Medicine
DX: R53.1 Weakness (principal); R91.8 Other nonspecific abnormal finding of lung field; Z86.73 Personal history of transient ischemic attack (TIA), and cerebral infarction without residual deficits; Z79.02 Long term (current) use of antithrombotics/antiplatelets; R06.02 Shortness of breath; R39.198 Other difficulties with micturition; F17.200 Nicotine dependence, unspecified, uncomplicated; J43.2 Centrilobular emphysema; R41.0 Disorientation, unspecified
CPT/HCPCS: 36415; 70450; 70496; 70498; 71045; 71250; 80053; 80307; 80320; 81003; 83605; 83735; 84443; 84484; 85025; 85610; 93005; 99285; Q9967

== ENCOUNTER 2024-02-22 17:21 | Outpatient (REF) | payer MEDICARE, SELFPAY ==
--- OUTSIDE RECORDS SUMMARY | 2024-02-22 17:28 | XMS_ITS | CCD ---
Author Organization [facility] CliniSyvt Care Team Providers Care Hr Business Partner Consultant Name Role Phone Pablo Abreu Unavailable Unavailable [...] Unavailable NADERER, DR PABLO Goodman Consulting Unavailable LILIANBETH Consulting Unavailable NEFCY, CHELE Consulting Unavailable SISTER, HUNTER Consulting Unavailable MENG ., HECTOR Consulting Unavailable TAMMEDHAT, ZAIDA Consulting Unavailable NADERER, DR PABLO Goodman Consulting [...] Attending Provider MD Consuelo Johnson Referring Provider [phone] MD Pablo Abreu Primary Care Provider Ramesh Imad Unavailable MISA Padilla Attending Provider MD Consuelo Johnson Referring Provider [phone] MD Pablo Abreu Primary Care Provider [phone] Rogers, [place] Referring Unavailable Escamilla, [place] Attending Unavailable Naderer, Dr. Pablo Grewal Primary Care Unalaloi labsabrina Escamilla, [place] Attending Unavailable Naderer, Dr. Pablo Grewal Primary Care Unavai lable Escamilla, [place] Referring Unavailable Naderer, Dr. Pablo Grewal Primary Care Unavai lable Escamilla, [place] Referring Unavailable Escamilla, [place] Attending Unavailable Naderer, Dr. Pablo Grewal Primary Care Unavai lable Escamilla, [place] Referring Unavailable Escamilla, [place] Attending Unavailable Escamilla, [place] Referring Unavailable Escamilla, [place] Attending Unavailable Naderer, Dr. Pablo Grewal Primary Care Wandy SERVIN, NITZA HUITRON Attending Janice vailable Lois, Dr. Pablo Grewal Primary Care Wandy Alex, Dr. Katia Perdomo Admitting Unavaila ble Abi, Dr. Katia Perdomo Attending Unavaila ble Escamilla, [place] Referring Unavailable Naderer, Dr. Pablo Grewal Primary Care MD Consuelo Buck Attending Provider MD Israel Escamilla Attending Provider MD Pablo Abreu Primary Care Provider [phone] MD Katia Alex Attending Provider MD Katia Alex Referring Provider Abi, Dr. Katia Perdomo Attending Unavaila ble Escamilla, Dr. Israel Valdez Referring Janice vailable Naderer, Dr. Pablo Grewal Primary Care BRUCE Olson Attending Unavailable Nadadair, Dr. Pablo Grewal Primary Care Wandy Alex, Dr. Katia Perdomo Referring Unavaila ble Pablo Abreu MD Primary Care Provider Pablo Abreu Primary Care Unavailable Katia Alex Referring Unavailable Katia Alex Attending Unavailable Katia Alex Admitting Unavailable Lois, Pablo Primary Care Unavailable Escamilla, Israel Attending Unavailable Escamilla, [place] Admitting Unavailable Pablo Abreu MD Primary Care Provider PABLO ABREU Attending Unavailable LOIS, PABLO Attending Unavailable LOIS, PABLO Attending Unavailable LOIS, PABLO Attending Unavailable LOIS, PABLO Attending Unavailable LOIS, PABLO Attending Unavailable Pablo Abreu Primary Care Provider [phone] Pablo Abreu Unavailable ISRAEL ESCAMILLA Attending Unavailable PABLO ABREU Primary Care UnavailISRAEL Rich Attending Unavailable PABLO ABREU Primary Care UnavailISRAEL Rich Referring Unavailable VENNEPUREDDARNELL, RONI Attending Unavailable PABLO ABREU Referring Unavailable PABLO ABREU Primary Care Unavailable Allergies Allergy Classification Reported Allergen(s) Allergy Type Date of Onset Reaction(s) Facility (3 sources) [place] [facility] Allergy rash Improveit! 360 Other Medications Current Medications Medication Drug Class(es) Dates Sig (Normalized) Sig (Original) acetaminophen 325 mg / HYDROcodone bitartrate 10 mg oral tablet (20 sources) Opioid Agonist Start: 02-04-2024 End: 03-05-2024 take 1 tablet by mouth once HYDROcodone-Aceta minophen (NORCO) 10-325 mg per tablet Take 1 tablet by mouth. 02/04/2024 03/05/2024 Active Start: 02-14-2021 End: 08-03-2022 take 1 tablet by mouth every six hours Hydrocodone-Acetaminophen (Mittie) 7.5-32 5 mg Tablet Active 1 TAB PO Q6H August 03, 2022 1:00am [id number] 200 actuat albuterol 0.09 mg/actuat metered dose inhaler (9 sources) beta2-Adrenergic Agonist Start: 12-06-2023 take 2 puff(s) by inhalation every four hours as needed albuterol HFA (PROVENTIL HFA, VENTOLIN HFA) 90 mcg/actuation inhaler Inhale 2 Puffs as instructed every 4 hours as needed. 12/06/2023 Active Start: 03-02-2023 take 1 dose by mouth every four hours albuterol (PROVENTIL) 2.5 mg /3 mL (0.083 %) nebulizer solution inhale contents of 1 vial in nebulizer by mouth and INTO THE LUNGS every 4 hours if needed 03/02/2023 Active Start: 02-14-2021 End: 08-03-2022 Albuterol Sulfate Discontinu ed 90 MCG INHALATION As Directed February 14, 2021 12:00am August 03, 2022 3:56pm aspirin 81 mg oral tablet (20 sources) Platelet Aggregation Inhibitor, Nonsteroidal Anti-inflammatory Drug Start: 09-03-2022 take 81 mg by mouth once daily Aspirin Active 81 MG PO Daily September 03, 2022 12:00am Start: 02-14-2021 End: 02-17-2024 take 1 tablet by mouth once daily, then take 1 tablet by mouth once aspirin 81 mg EC tablet Take 1 tablet (81 mg) by mouth once daily. Take one tablet by mouth every Wednesday and only 04/10/2022 Active clonazePAM 0.5 mg oral tablet (2 sources) Benzodiazepine Start: 02-04-2024 clonazePAM (KLONOPIN) 0.5 mg tablet Take 0.5 mg by mouth. 02/04/2024 Active clopidogrel 75 mg oral tablet (10 sources) [id number] Platelet Inhibitor Start: 09-03-2022 End: 05-25-2024 take 1 tablet by mouth once daily clopidogrel (Plavix) 75 mg tablet Indications: Cerebrovascular accident (CVA), unspecified mechanism (Multi) Take 1 tablet (75 mg) by mouth once daily. 90 tablet 3 05/26/2023 05/25/2024 Active cyclobenzaprine hydrochloride 10 mg oral tablet (20 sources) Muscle Relaxant Start: 05-18-2023 cyclobenzaprine (FLEXERIL) 10 mg tablet Take 10 mg by mouth. 05/18/2023 Active Start: 02-14-2021 End: 08-03-2022 take 1 tablet [...] 14, 2021 12:00am February 14, 2021 9:41am End: 02-17-2024 docusate sodium (COLACE) 100 mg capsule 1 (one) time each day at the same time. 02/17/2024 Discontinued (Discontinued by another Health Care Provider) Colace Active ferrous sulfate 325 mg delay ed release oral tablet (5 sources) Start: 10-26-2023 End: 10-25-2024 ferrous sulfate 325 mg (65 m g iron) EC tablet Take 325 mg by mouth. 10/26/2023 10/25/2024 Active take 1 tablet by da th once daily at mealtime Ferrous Sulfate 325 (65 Fe) MG Oral Tabl et TAKE 1 TABLET DAILY WITH FOOD. Quantity: 90 Refills: 3 Ordered: 07-Oct-2022 DO Active FLUoxetine 40 mg oral capsule (7 sources) Serotonin Reuptake Inhibitor Start: 02-10-2024 FLUoxetine (PROZAC) 40 mg capsule 02/10/2024 Active Start: 02-14-2021 End: 02-14-2021 take 1 capsule by mouth once daily Fluoxetine (Prozac) 40 mg Capsule Discontinued 40 MG PO Daily February 14, 2021 12:00am February 14, 2021 9:39am 14 actuat fluticasone furoate 0.1 mg/actuat / vilanterol 0.025 mg/actuat dry powder inhaler (2 sources) Corticosteroid, beta2-Adrenergic Agonist Start: 08-09-2023 take 1 puff(s) by mouth once daily fluticasone-vilanterol (BREO ELLIPTA) 100-25 mcg/dose inhaler inhale 1 puff by mouth and INTO THE LUNGS once daily 08/09/2023 Active iv contrast (will be provided with radiology test) (1 source) Start: 02-17-2024 End: 02-18-2024 inject 1 dose intravenously once iv contrast (will be provided with radiology test) Indications: Lung mass MRI Brain Inject, intravenously, once for 1 dose.No IV access, insert saline lock prior to beginning of sedation, infusion, injection of imaging exam.Discontinue saline lock post exam. If Pt. has a central line or IVAD, may access for administration according to line specific nursing protocol.Once exam is complete flush line and de-access according to line specific nursing protocol in the MR contrast administration guidelines link 1 Each 02/17/2024 02/18/2024 Active loperamide hydrochloride 2 mg oral tablet (2 sources) Opioid Agonist Start: 02-04-2024 loperamide HCl (IMODIUM) 2 mg tab Take 2-4 mg by mouth. 02/04/2024 Active midodrine hydrochloride 10 mg oral tablet (12 sources) alpha-Adrenergic Agonist Start: 12-06-2023 midodrine (PROAMATINE) 10 mg tablet Take 15 mg by mouth. 12/06/2023 Active Start: 10-21-2023 End: 10-20-2024 take 1 tablet [...] Start: 06-08-2022 take 1 tablet by da twice daily Midodrine HCl - 5 MG Oral Tablet Take 1 tablet twice daily Quantity: 180 Refills: 3 Ordered: 08-Jun-2022 Israel Escamilla MD Start : 08-Jun-2022 Active new start pantoprazole 40 mg delayed release oral tablet (1 source) Proton Pump Inhibitor Start: 02-15-2024 pantopra francesco COULTER (PROTONIX) 40 mg tablet 02/15/2024 Active pioglitazone 15 mg oral tablet (20 sources) Peroxisome Proliferator Receptor alpha Agonist, Peroxisome Proliferator Receptor gamma Agonist, Thiazolidinedione Start: 02-14-2021 End: 10-05-2024 pioglitazone (ACTOS) 15 mg tablet Take 15 mg by mouth. 10/06/2023 10/05/2024 Active Actos Active simvastatin 40 mg oral tablet (20 sources) HMG-CoA Reductase Inhibitor Start: 11-17-2023 take 1 tablet by mouth once daily at bedtime simvastatin (ZOCOR) 40 mg tablet Take 1 tablet by mouth daily at bedtime. 11/17/2023 Active Start: 02-14-2021 take 1 tablet by da th once daily at bedtime Simvastatin (Zocor) 40 [...] oral capsule (20 sources) alpha-Adrenergic Anaya Start: 01-20-2024 End: 01-19-2025 tamsulosin (FLOMAX) 0.4 mg Take 0.4 mg by mouth. 01/20/2024 01/19/2025 Active Start: 08-03-2022 End: 08-03-2022 take 1 capsule by mouth once daily Tamsulosin (Flomax) 0.4 mg Capsule Discontinued 0.4 MG PO Daily August 03, 2022 1:00am August 03, 2022 3:57pm Start: 02-14-2021 take 0.8 mg by mouth once real y Tamsulosin Active 0.8 MG PO Daily February 14, 2021 12:00am Flomax Active 24 hr venlafaxine 150 mg extended release oral capsule (20 sources) Serotonin and Norepinephrine Reuptake Inhibitor Start: 01-13-2024 End: 01-12-2025 take 1 capsule by mouth once daily venlafaxine ER (EFFEXOR XR) 150 mg 24 hr capsule Take 1 capsule by mouth once daily. 01/13/2024 01/12/2025 Active Start: 11-18-2021 take 1 capsule by mo [facility] every twenty-four hours Venlafaxine HCl ER 75 MG Oral Capsule Extended Release 24 Hour Quantity: 90 Refills: 0 Ordered: 18-Nov-2021 DO Start : 18-Nov-2021 Complete Start: 02-14-2021 take 75 mg by mouth once daily Venlafaxine Active 75 MG PO Daily February 14, 2021 12:00am take 1 tablet by mouth once real y venlafaxine (Effexor) 75 mg tablet Take 1 tablet (75 mg) by mouth once daily. Active zolpidem tartrate 10 mg oral tablet (20 sources) gamma-Aminobutyric Acid-ergic Agonist Start: 01-18-2024 zolpidem (AMBIEN) 10 mg Take 10 mg by mouth. 01/18/2024 Active Start: 08-03-2022 End: 09-03-2022 take 1 tablet by mouth once daily at bedtime Zolpidem (Ambien) 5 mg Tablet Discontinued 5 MG PO Daily at bedtime August 03, 2022 1:00am September 03, 2022 11:27am Start: 02-14-2021 take 10 mg by mouth once daily Zolpidem Active 10 MG PO Daily February 14, 2021 12:00am Ambien Active Completed/Discontinued Medications Medication Drug Class(es) Dates Sig (Normalized) Sig (Original) amoxicillin 500 mg oral capsule (4 sources) Penicillin-class Antibacterial Start: 02-23-2022 take 1 capsule by mouth every eight hours Amoxicillin 500 MG Oral Capsule take 1 capsule by mouth every 8 hours Quantity: 21 Refills: 0 Ordered: 23-Feb-2022 DO Start : 23-Feb-2022 Complete Start: 11-27-2021 [facility] Amoxicillin 875 MG Oral Tablet take 1 tablet by mouth every 8 hours for 10 days Quantity: 30 Refills: 0 Ordered: 27-Nov-2021 DO Start : 27-Nov-2021 Complete Aspir-81 (3 sources) Aspir-81 Not-Rufus ing - Active atenolol 25 mg oral tablet (5 [...] Ordered: 09-Mar-2022 DO Start : 09-Mar-2022 Complete brimonidine tartrate 2 mg/ml ophthalmic solution (2 sources) alpha-Adrenergic Agonist Start: 09-28-2022 End: 02-17-2024 take 1 drop(s) into the eye(s) twice daily brimonidine (ALPHAGAN) 0.2 % ophthalmic solution instill 1 drop into right eye twice a day 09/28/2022 02/17/2024 Discontinued (Discontinued by another Health Care Provider) carvedilol 3.125 mg oral tablet (3 sources) [...] Hyclate Discontinued 100 MG PO Twice daily 13 01February 17, 2021 12:00am August 03, 2022 3:56pm gabapentin 100 mg oral capsule (5 sources) Anti-epileptic Agent Start: 02-14-2021 End: 02-14-2021 take 100 mg by mouth three times daily Gabapentin Discontinued 100 MG PO Three times daily February 14, 2021 12:00am February 14, 2021 8:50am omeprazole 40 mg delayed release oral capsule (20 sources) Proton Pump Inhibitor Start: 02-04-2024 End: 02-17-2024 omeprazole (PRILOSEC) 40 mg capsule Take 40 mg by mouth. 02/04/2024 02/17/2024 Discontinued (Discontinued by another Health Care Provider) Start: 02-14-2021 take 40 mg by mouth once daily Omeprazole Active 40 MG PO Daily February 14, 2021 12:00am Omeprazole Not-T aking Omeprazole Activ e predniSONE 10 mg oral tablet (5 sources) Start: 02-17-2021 End: 08-03-2022 Prednisone Discontinued 10 MG PO Daily February 17, 2021 12:00am August 03, 2022 3:56pm 30mg daily x 2 days, 20 mg daily x 2 days, 10mg daily x 2 days, then stop. Take in AM with food. warfarin sodium 2 mg oral tablet (16 sources) Vitamin K Antagonist Start: 02-14-2021 End: 09-03-2022 Warfarin Discontinued 5 MG PO As Directed February 14, 2021 12:00am September 03, 2022 11:26am Coumadin Not-Rufus ing Warfarin Sodium 2 MG Oral Tablet Take as directed by Dr. Abreu Quantity: 0 Refills: 0 Ordered: 21-Aug-2021 DO Active Coumadin Active Problems Active Problems Problem Classification Problem [...] [Coronary atherosclerosis of unspecified type of vessel, kasaan or graft] Onset: 3 02-14-2021 Chronic Deficiency [...] sources) Depressive disorder; Translations: [Depression] 02-14-2021 Chronic Neoplasms of unspecified nature or uncertain behavior (1 source) Neoplasm of lung ; Translations: [Neoplasm of unspecified behavior of respiratory system] 02-17-2024 Episodic Nonspecific chest pain (5 sources) Chest pain; Translations: [Chest pain, unspecified] 02-14-2021 Episodic Other aftercare (9 sources) Drug therapy finding; Translations: [Long-term (current) use of other medications] Episodic Other aftercare (1 source) Other grab hooker (current) drug therapy; Translations: [OTH PENITENTIARY CURRENT DRUG THERAPY] Onset: 3 Episodic Other aftercare (1 source) jail (current) use of aspirin; Translations: [PENITENTIARY CURRENT USE OF ASPIRIN] Onset: 3 Episodic Other aftercare (4 sources) Encounter for therapeutic drug level monitoring; Translations: [ENC THERAPEUTC DRUG LEVL MONITORING] Onset: 3 Episodic Other aftercare (1 source) jail (current) use of anticoagulants; Translations: [MICROFILM CLERK CURRNT USE ANTICOAGULANTS] Onset: 3 Episodic Other aftercare (5 sources) Long-term current use of anticoagulant; Translations: [language asst (current) use of anticoagulants] 02-14-2021 Episodic Other [...] Translations: [HYPOTENSION UNSPECIFIED] Onset: 3 Episodic Other gastrointestinal disorders (1 source) Diarrhea; Translations: [Diarrhea, unspecified] 02-17-2024 Episodic Other injuries and conditions due to external causes (1 source) History of falling; Translations: [History of falling] Onset: 3 Episodic Other lower respiratory disease (1 source) Lung mass; Translations: [Other nonspecific abnormal finding of lung field] 02-17-2024 Episodic Other nutritional; endocrine; and metabolic disorders (9 sources) Obesity; Translations: [Obesity, unspecified] 02-14-2021 Chronic Other nutritional; endocrine; and metabolic disorders (5 sources) Hypomagnesemia; Translations: [Hypomagnesemia] 02-14-2021 Chronic Other nutritional; endocrine; and metabolic disorders (11 sources) Overweight in adulthood with body mass index of 25 or more but less than 30; Translations: [Overweight] Onset: 4 10-21-2023 Episodic Other screening for suspected conditions (not [...] FB LT FOREARM INIT] Onset: 10-05-2021 Episodic Other circulatory disease (3 sources) Orthostatic hypotension; Translations: [ORTHOSTATIC HYPOTENSION] Onset: 06-22-2022 Episodic Other nutritional; endocrine; and metabolic disorders (2 sources) Overweight; Translations: [Overweight] Onset: 10-21-2023 Episodic Other nutritional; endocrine; and metabolic disorders (2 sources) Body mass index (BMI) 27.0-27.9, adult; Translations: [Body mass index (BMI) 27.0-27.9, adult] Onset: 10-21-2023 Episodic Superficial injury; contusion (1 source) Contusion of left forearm, initial encounter; Translations: [CONTUSION LEFT FOREARM INITIAL ENC] Onset: 10-07-2021 Episodic Unclassified (2 sources) Onset: 04-13-2023 Resolved: 10-21-2023 04-13-2023 Results Test Name Value Interpretation Reference Range Facility [facility] 02-17-2024 CNOVS Visit (SP) Office ([place]) SEN GARCIA ([id number]) 1950 M Date Time Provider Department 02/17/24 11:00 AM RONI BOLDEN During your visit today, we recorded the following information about you: Temperature Pulse Respiration Blood pressure 97.1 degrees 75/minute 18/minute 92/62 Weight 69.6 kg Roni Bolden MD 02/17/2024 12:00 PM Signed PATIENT NAME: Sen Garcia CLINIC NO.: [id number] ATTENDING PHYSICIAN: Roni Bolden MD DATE OF SERVICE: February 17, [address] Pablo Abreu MD ([facility]) [address] [facility] [address] thank you for referring Sen Garcia for an opinion regarding lung cancer. CHIEF COMPLAINT: Lung cancer HPI: Sen Garcia is a 73 year old year old male referred to us for lung cancer. PMH of CVA, DM, HTN, COPD, Anxiety Severe SOB with minimal exertion. Seemed confused and went to ER on 01/27/24. CT head negative. CTA head and neck without narrowing. Chest x-ray abnormal and CT chest with spiculated mass in HALIE concerning for metastatic cancer. Noted enlarged lymph nodes and masses in liver and adrenal gland. Smokes 15 cigs per day. Many yrs C/o weight loss, loss of appetite. Amble to ambulate short distance C/o watery diarrhea Current Outpatient Medications Medication Sig pantoprazole DR (PROTONIX) 40 mg tablet albuterol HFA (PROVENTIL HFA, VENTOLIN HFA) 90 mcg/actuation inhaler Inhale 2 Puffs as instructed every 4 hours as needed. clonazePAM (KLONOPIN) 0.5 mg tablet Take 0.5 mg by mouth. clopidogrel (PLAVIX) 75 mg tablet Take 75 mg by mouth. cyclobenzaprine (FLEXERIL) 10 mg tablet Take 10 mg by mouth. ferrous sulfate 325 mg (65 mg iron) EC tablet Take 325 mg by mouth. FLUoxetine (PROZAC) 40 mg capsule fluticasone-vilanterol (BREO ELLIPTA) 100-25 mcg/dose inhaler inhale 1 puff by mouth and INTO THE LUNGS once daily HYDROcodone-Acetaminop hen (NORCO) 10-325 mg per tablet Take 1 tablet by mouth. loperamide HCl (IMODIUM) 2 mg tab Take 2-4 mg by mouth. midodrine (PROAMATINE) 10 mg tablet Take 15 mg by mouth. pioglitazone (ACTOS) 15 mg tablet Take 15 mg by mouth. simvastatin (ZOCOR) 40 mg tablet Take 1 tablet by mouth daily at bedtime. sotalol (BETAPACE) 80 mg tablet Take 80 mg by mouth. tamsulosin (FLOMAX) 0.4 mg Take 0.4 mg by mouth. venlafaxine ER (EFFEXOR XR) 150 mg 24 hr capsule Take 1 capsule by mouth once daily. zolpidem (AMBIEN) 10 mg Take 10 mg by mouth. iv contrast (will be provided with radiology test) MRI Brain Inject, intravenously, once for 1 dose.No IV access, insert saline lock prior to beginning of sedation, infusion, injection of imaging exam.Discontinue saline lock post exam. If Pt. has a central line or IVAD, may access for administration according to line specific nursing protocol.Once exam is complete flush line and de-access according to line specific nursing protocol in the MR contrast administration guidelines link albuterol (PROVENTIL) 2.5 mg /3 mL (0.083 %) nebulizer solution inhale contents of 1 vial in nebulizer by mouth and INTO THE LUNGS every 4 hours if needed (Patient not taking: Reported on 02/17/2024) No current facility-administered medications for this visit. ALLERGIES No Known Allergies PAST MEDICAL HISTORY Diagnosis Date Encopresis HILARY (generalized anxiety disorder) GERD (gastroesophageal reflux disease) Lung cancer (HCC) No past surgical history on file. No family history on file. Social History Tobacco Use Smoking status: Every Day Types: Cigarettes REVIEW OF SYSTEMS GENERAL: No weight loss, malaise or fevers. No night sweats. HEENT: Negative for headaches, No changes in hearing or vision, no nose bleeds or other nasal problems. RESPIRATORY: Negative for cough, wheezing and shortness of breath CARDIOVASCULAR: Negative for chest pain, leg swelling and palpitations GI: Negative for abdominal discomfort, blood in stools or black stools and change in bowel habits : Negative for dysuria, frequency and incontinence MUSCULOSKELETAL: Negative for joint pain or swelling, back pain, and muscle pain. SKIN: Negative for lesions, rash, and itching. HEMATOLOGY/LYMPHOLOGY Negative for prolonged bleeding, bruising easily, and swollen nodes. NEURO: Negative for numbness or tingling of hands/feet. No weakness. PHYSICAL EXAMINATION: BP 92/62 Pulse 75 Temp 36.2 ?C (97.1 ?F) (Temporal) Resp 18 Wt 69.6 kg (153 lb 7 oz) SpO2 96% There were no vitals taken for this visit. No data found for this vital: Wt General appearance:ECOG PERFORMANCE STATUS: 3- Capable of only limited selfcare, confined to bed/chair > 50% of waking hrs. Patient in NAD. Skin: Skin color, texture, turgor normal. No rashes or lesions. Eyes: Anicteric sclera. Pupils are equally round and reactive to light. Extraocular movements are intact. Breast: No palpable breast masses. No (more content not included)... [facility] Telephone ([place]) SEN GARCIA ([id number]) 1950 M Date Time Provider Department 02/14/24 RONI BOLDEN During your visit today, we recorded the following information about you: Kadie Mcguire MA 02/14/2024 11:54 AM Signed Patient has an appt on 02/16. Would you like labs? Allergies As of Date: 02/14/2024 (Not on File) Date Reviewed: Never Reviewed Reason for Visit: Lab Orders [[id number]] Problem List As Of Date: 02/14/2024 (None) Encounter Status:Closed by KADIE MCGUIRE on 02/15/24 Normal [facility] ECG 12 [place] 10-21-2023 ECG revealed normal sinus rhythm with left axis deviation [facility] Work Phone: ECG 12 [place] 04-13-2023 ECG reveals normal sinus rhythm with left axis deviation [facility] Work Phone: CT Watchman Full Contraston 12-25-2022 CT Watchman Full Contrast Normal [facility] Jada Solorioilimary [address] [place] Work Phone: CT WATCHMAN FULL CONTRAST on 12-25-2022 CT WATCHMAN FULL CONTRAST Addendum Begins Patient [...] STRUCTURES ARE THE SOLE RESPONSIBILITY OF THE [employer] CORE LAYER SUBMITTING THE ORIGINAL REPORT (NOT THIS ADDENDUM) Electronically signed by: ALBINO LAGUNA MD Addendum Ends Patient Name: KRISTINESEN STUDY: TH CT WATCHMAN FULL CONTRAST; 12/25/2022 10:12 am INDICATION: post watchman device surveilance I48.0: Paroxysmal atrial fibrillation. COMPARISON: None. ACCESSION NUMBER(S): [id number] ORDERING CLINICIAN: KATIA ALEX TECHNIQUE: Using multidetector [...] surface/left atrial aspect of closure device. Reading Orchardist: Dr. Festus Crenshaw, Date: 12/25/2022 10:19 am Electronically signed by: ALBINO LAGUNA MD Normal [facility] Albumin [Mass/volume] in Ser um or Plasma by Bromocresol green (BCG) dye binding methoOrdered By: Katia Alex on 12-24-2022 Albumin BCG dye [Mass/Vol] 4.3 g/dL 3.5-5.7 [facility] Calcium [Mass/volume] in Ser um or PlasmaOrdered By: Katia Alex on 12-24-2022 Calcium [Mass/Vol] 9.3 mg/dL 8.6-10.3 [facility] Carbon dioxide, total [Moles /volume] in Serum or PlasmaOrdered By: Katia Alex on 12-24-2022 CO2 [Moles/Vol] 34.3 mmol/L 21.0-31.0 [facility] Chloride [Moles/volume] in S rodo or PlasmaOrdered By: Katia Alex on 12-24-2022 Chloride [Moles/Vol] 101 mmol/L 98-107 [facility] Creatinine [Mass/volume] in Serum or PlasmaOrdered By: Katia Alex on 12-24-2022 Creatinine [Mass/Vol] 0.83 mg/dL 0.70-1.30 [facility] Glucose [Mass/volume] in Ser um or PlasmaOrdered By: Katia Alex on 12-24-2022 Glucose [Mass/Vol] 99 mg/dL 70-100 [facility] Comment on above: ADA recommended refe rence rangeRandom Glucose Reference Range is dependent on time and content of last meal. Glucose of more than 200 mg/dL in a nonstressed, ambulatory subject supports the diagnosis of Diabetes Mellitus. No Panel InformationOrdered By: Katia Alex on 12-24-2022 Estimated GFR (CKD-EPI) > 60.0 mL/Min [facility] Creatinine Clearance (Chem N/A [facility] Phosphate [Mass/volume] in S rodo or PlasmaOrdered By: Katia Alex on 12-24-2022 Phosphate [Mass/Vol] 2.6 mg/dL 3.7-7.2 [facility] Potassium [Moles/volume] in Serum or PlasmaOrdered By: Katia Alex on 12-24-2022 Potassium [Moles/Vol] 4.4 mmol/L 3.5-5.1 [facility] Renal Function Panelon 12-24 Albumin [Mass/Vol] 4.3 g/dL Normal 3.5-5.7 [facility] Comment on above: Result Comment: PERF ORMED BY: [place] [address] PATHOLOGIST TOMATO PASTE MAKER ARDEN MELTON M.D. Performed By: #### R ENAL #### [address] Anion gap [Moles/Vol] 9.1 mmol/L Normal 6.0-15.0 [facility] Comment on above: Performed By: #### R ENAL #### [place] [address] [place] Calcium [Mass/Vol] 9.3 mg/dL Normal 8.6-10.3 [facility] Comment on above: Performed By: #### R ENAL #### [place] [address] [place] Chloride [Moles/Vol] 101 mmol/L Normal 98-107 [facility] Comment on above: Performed By: #### R ENAL #### [place] [address] [place] CO2 [Moles/Vol] 34.3 mmol/L High 21.0-31.0 [facility] Comment on above: Performed By: #### R ENAL #### [place] [address] [place] Creatinine [Mass/Vol] 0.83 mg/dL Normal 0.70-1.30 [facility] Comment on above: Performed By: #### R ENAL #### [place] [address] [place] GFR/1.73 sq M.predicted MDRD (S/P/Bld) [Vol rate/Area] mL/min/{1.73_m2} Normal [facility] Comment on above: Performed By: #### R ENAL #### [place] [address] [place] Glucose [Mass/Vol] 99 mg/dL Normal 70-100 [facility] Comment on above: Result Comment: [place] om Glucose Reference Range is dependent on time and content of last meal. Glucose of more than 200 mg/dL in a nonstressed, ambulatory subject supports the diagnosis of Diabetes Mellitus. ADA recommended reference range Performed By: #### R ENAL #### [facility] [address] Phosphate [Mass/Vol] 2.6 mg/dL Low 3.7-7.2 [facility] Comment on above: Performed By: #### R ENAL #### [address] Potassium [Moles/Vol] 4.4 mmol/L Normal 3.5-5.1 [facility] Comment on above: Performed By: #### R ENAL #### [address] Sodium [Moles/Vol] 140 mmol/L Normal 136-145 [facility] Comment on above: Performed By: #### R ENAL #### [address] Urea nitrogen [Mass/Vol] 14 mg/dL Normal 7-25 [facility] Comment on above: Performed By: #### R ENAL #### [address] Serum or plasma anion gap de terminationOrdered By: Katia Alex on 12-24-2022 Anion gap [Moles/Vol] 9.1 mmol/L 6.0-15.0 [facility] Sodium [Moles/volume] in Ser um or PlasmaOrdered By: Katia Alex on 12-24-2022 Sodium [Moles/Vol] 140 mmol/L 136-145 [facility] Urea nitrogen [Mass/volume] in Serum or PlasmaOrdered By: Katia Alex on 12-24-2022 Urea nitrogen [Mass/Vol] 14 mg/dL 7-25 [facility] Alanine Aminotransferaseon 0 10-29-2022 ALT [Catalytic activity/Vol] 13 U/L Normal 7-52 [facility] Comment on above: Order Comment: SAVITA GARIBAY Performed By: #### C BC, ALT, BMP, AST, LIPID #### [address] Alanine aminotransferase [En zymatic activity/volume] in Serum or PlasmaOrdered By: Israel Escamilla on 10-29-2022 ALT [Catalytic activity/Vol] 13 U/L 7-52 [facility] Aspartate Amino Transferaseo n 10-29-2022 AST [Catalytic activity/Vol] 17 U/L Normal 13-39 [facility] Comment on above: Order Comment: FASTI NG. JKW Performed By: #### C BC, ALT, BMP, AST, LIPID #### [address] Aspartate aminotransferase [ Enzymatic activity/volume] in Serum or PlasmaOrdered By: Israel Escamilla on 10-29-2022 AST [Catalytic activity/Vol] 17 U/L 13-39 [facility] Basic Metabolic Panelon 06 Anion gap [Moles/Vol] 8.1 mmol/L Normal 6.0-15.0 [facility] Comment on above: Order Comment: FASTI NG. JKW Performed By: #### C BC, ALT, BMP, AST, LIPID #### [address] Calcium [Mass/Vol] 9.5 mg/dL Normal 8.6-10.3 [facility] Comment on above: Order Comment: FASTI NG. JKW Performed By: #### C BC, ALT, BMP, AST, LIPID #### [address] Chloride [Moles/Vol] 103 mmol/L Normal 98-107 [facility] Comment on above: Order Comment: FASTI NG. JKW Performed By: #### C BC, ALT, BMP, AST, LIPID #### [address] CO2 [Moles/Vol] 34.5 mmol/L High 21.0-31.0 [facility] Comment on above: Order Comment: FASTI NG. JKW Performed By: #### C BC, ALT, BMP, AST, LIPID #### [facility] [address] Creatinine [Mass/Vol] 0.77 mg/dL Normal 0.70-1.30 [facility] Comment on above: Order Comment: FASTI NG. JKW Performed By: #### C BC, ALT, BMP, AST, LIPID #### [place] [address] [place] GFR/1.73 sq M.predicted MDRD (S/P/Bld) [Vol rate/Area] mL/min/{1.73_m2} Normal [facility] Comment on above: Order Comment: FASTI NG. JKW Performed By: #### C BC, ALT, BMP, AST, LIPID #### [address] Glucose [Mass/Vol] 105 mg/dL High 70-100 [facility] Comment on above: Order Comment: FASTI NG. JKW Result Comment: [place] Glucose Reference Range is dependent on time and content of last meal. Glucose of more than 200 mg/dL in a nonstressed, ambulatory subject supports the diagnosis of Diabetes Mellitus. ADA recommended reference range Performed By: #### C BC, ALT, BMP, AST, LIPID #### [address] Potassium [Moles/Vol] 4.6 mmol/L Normal 3.5-5.1 [facility] Comment on above: Order Comment: FASTI NG. JKW Performed By: #### C BC, ALT, BMP, AST, LIPID #### [address] Sodium [Moles/Vol] 141 mmol/L Normal 136-145 [facility] Comment on above: Order Comment: FASTI NG. JKW Performed By: #### C BC, ALT, BMP, AST, LIPID #### [address] Urea nitrogen [Mass/Vol] 14 mg/dL Normal 7-25 [facility] Comment on above: Order Comment: FASTI NG. JKW Performed By: #### C BC, ALT, BMP, AST, LIPID #### [facility] [address] Basophils Auto (Bld) [#/Vol] Ordered By: Israel Escamilla on 10-29-2022 Basophils (Bld) [#/Vol] 0.0 10*3/uL 0.0-0.2 [facility] Basophils/100 WBC Auto (Bld) Ordered By: Israel Escamilla on 10-29-2022 Basophils/100 WBC (Bld) 0.6 % . [facility] Calcium [Mass/volume] in Ser um or PlasmaOrdered By: Israel Escamilla on 10-29-2022 Calcium [Mass/Vol] 9.5 mg/dL 8.6-10.3 [facility] Carbon dioxide, total [Moles /volume] in Serum or PlasmaOrdered By: Israel Escamilla on 10-29-2022 CO2 [Moles/Vol] 34.5 mmol/L 21.0-31.0 [facility] Chloride [Moles/volume] in S rodo or PlasmaOrdered By: Israel Escamilla on 10-29-2022 Chloride [Moles/Vol] 103 mmol/L 98-107 [facility] Cholesterol [Mass/volume] in Serum or PlasmaOrdered By: Israel Escamilla on 10-29-2022 Cholesterol [Mass/Vol] 167 mg/dL 140-200 [facility] Comment on above: Chol less than 200 m g/dl low riskChol 201-239 mg/dl borderline riskChol 240 mg/dl and greater high risk Cholesterol in LDL Calc [Mas s/Vol]Ordered By: Israel Escamilla on 10-29-2022 Cholesterol in LDL [Mass/Vol] 87 mg/dL 0-100 [facility] Comment on above: LDL ATP III CLASSIFI CATIONLDL less than 100 mg/dL OptimalLDL 100-129 mg/dL Near or above optimalLDL 130-159 mg/dL Borderline highLDL 160-189 mg/dL HighLDL greater than 189 mg/dL Very high Cholesterol in VLDL Calc [Ma ss/Vol]Ordered By: Israel Escamilla on 10-29-2022 Cholesterol in VLDL [Mass/Vol] 34 mg/dL [facility] Complete Blood Count Auto Di ffon 10-29-2022 Basophils (Bld) [#/Vol] 0.0 10*3/uL Normal 0.0-0.2 [facility] Comment on above: Order Comment: FASTI NG. JKW Result Comment: PERF ORMED BY: [place] [address] PATHOLOGIST TOMATO PASTE MAKER ARDEN MELTON M.D. Performed By: #### C BC, ALT, BMP, AST, LIPID #### [address] Basophils/100 WBC (Bld) 0.6 % Normal . T efrem [facility] Comment on above: Order Comment: FASTI NG. JKW Performed By: #### C BC, ALT, BMP, AST, LIPID #### [address] Eosinophils (Bld) [#/Vol] 0.1 10*3/uL Normal 0.0-0.45 [facility] Comment on above: Order Comment: FASTI NG. JKW Performed By: #### C BC, ALT, BMP, AST, LIPID #### [address] Eosinophils/100 WBC (Bld) 1.4 % Normal . [facility] Comment on above: Order Comment: FASTI NG. JKW Performed By: #### C BC, ALT, BMP, AST, LIPID #### [address] Erythrocyte distribution width (RBC) [Ratio] 14.0 % Normal 12.0-14.8 [facility] Comment on above: Order Comment: FASTI NG. JKW Performed By: #### C BC, ALT, BMP, AST, LIPID #### [address] Hematocrit (Bld) [Volume fraction] 44.1 % Normal 38.8-50.0 [facility] Comment on above: Order Comment: FASTI NG. JKW Performed By: #### C BC, ALT, BMP, AST, LIPID #### [address] Hemoglobin (Bld) [Mass/Vol] 15.0 g/dL Normal 13.0-17.0 [facility] Comment on above: Order Comment: FASTI NG. JKW Performed By: #### C BC, ALT, BMP, AST, LIPID #### [address] Lymphocytes (Bld) [#/Vol] 1.8 10*3/uL Normal 1.00-4.8 [facility] Comment on above: Order Comment: FASTI NG. JKW Performed By: #### C BC, ALT, BMP, AST, LIPID #### [address] Lymphocytes/100 WBC (Bld) 27.6 % Normal . [facility] Comment on above: Order Comment: FASTI NG. JKW Performed By: #### C BC, ALT, BMP, AST, LIPID #### [address] MCH (RBC) [Entitic mass] 31.1 pg Normal 27.5-35.2 [facility] Comment on above: Order Comment: FASTI NG. JKW Performed By: #### C BC, ALT, BMP, AST, LIPID #### [address] MCV (RBC) [Entitic vol] 91.6 fL Normal 83.5-101 [facility] Comment on above: Order Comment: FASTI NG. JKW Performed By: #### C BC, ALT, BMP, AST, LIPID #### [address] Mean Corpuscular HGB Conc 33.9 g/dL Normal 32.5-35.6 [facility] Comment on above: Order Comment: FASTI NG. JKW Performed By: #### C BC, ALT, BMP, AST, LIPID #### [place] [id number] [place] Monocytes (Bld) [#/Vol] 0.6 10*3/uL Normal 0.0-0.8 [facility] Comment on above: Order Comment: FASTI NG. JKW Performed By: #### C BC, ALT, BMP, AST, LIPID #### [address] Monocytes/100 WBC (Bld) 8.9 % Normal . [facility] Comment on above: Order Comment: FASTI NG. JKW Performed By: #### C BC, ALT, BMP, AST, LIPID #### [address] Neutrophils (Bld) [#/Vol] 3.9 10*3/uL Normal 1.8-7.7 [facility] Comment on above: Order Comment: FASTI NG. JKW Performed By: #### C BC, ALT, BMP, AST, LIPID #### [address] Neutrophils/100 WBC (Bld) 61.5 % Normal . [facility] Comment on above: Order Comment: FASTI NG. JKW Performed By: #### C BC, ALT, BMP, AST, LIPID #### [address] NRBC% 0.1 /100{WBC} Normal 0-0.5 [facility] Comment on above: Order Comment: FASTI NG. JKW Performed By: #### C BC, ALT, BMP, AST, LIPID #### [address] Platelet mean volume (Bld) [Entitic vol] 9.6 fL Normal 6.6-10.1 [facility] Comment on above: Order Comment: FASTI NG. JKW Performed By: #### C BC, ALT, BMP, AST, LIPID #### [address] Platelets (Bld) [#/Vol] 124 10*3/uL Low 150-450 [facility] Comment on above: Order Comment: FASTI NG. JKW Performed By: #### C BC, ALT, BMP, AST, LIPID #### [facility] [address] RBC (Bld) [#/Vol] 4.82 10*6/uL Normal 3.90-5.60 [facility] Comment on above: Order Comment: FASTI NG. JKW Performed By: #### C BC, ALT, BMP, AST, LIPID #### [facility] [address] WBC (Bld) [#/Vol] 6.4 10*3/uL Normal 4.1-10.5 [facility] Comment on above: Order Comment: FASTI NG. JKW Performed By: #### C BC, ALT, BMP, AST, LIPID #### [facility] [address] Creatinine [Mass/volume] in Serum or PlasmaOrdered By: Israel Escamilla on 10-29-2022 Creatinine [Mass/Vol] 0.77 mg/dL 0.70-1.30 [facility] Eosinophils Auto (Bld) [#/Vo l]Ordered By: Israel Escamilla on 10-29-2022 Eosinophils (Bld) [#/Vol] 0.1 10*3/uL 0.0-0.45 [facility] Eosinophils/100 WBC Auto (Bl d)Ordered By: Israel Escamilla on 10-29-2022 Eosinophils/100 WBC (Bld) 1.4 % . [facility] Erythrocyte distribution wid th Auto (RBC) [Ratio]Ordered By: Israel Escamilla on 10-29-2022 Erythrocyte distribution width (RBC) [Ratio] 14.0 % 12.0-14.8 [facility] Glucose [Mass/volume] in Ser um or PlasmaOrdered By: Israel Escamilla on 10-29-2022 Glucose [Mass/Vol] 105 mg/dL 70-100 [facility] Comment on above: ADA recommended refe rence rangeRandom Glucose Reference Range is dependent on time and content of last meal. Glucose of more than 200 mg/dL in a nonstressed, ambulatory subject supports the diagnosis of Diabetes Mellitus. Hematocrit Auto (Bld) [Volum e fraction]Ordered By: Israel Escamilla on 10-29-2022 Hematocrit (Bld) [Volume fraction] 44.1 % 38.8-50.0 [facility] Hemoglobin [Mass/volume] in BloodOrdered By: Israel Escamilla on 10-29-2022 Hemoglobin (Bld) [Mass/Vol] 15.0 g/dL 13.0-17.0 [facility] Laboratory - Chemistry and C hemistry - challengeon 10-29-2022 Cholesterol [Mass/Vol] 167\S\167 Normal 140-200 [facility] [place] [facility] Work Phone: Comment on above: Chol less than 200 m g/dl low risk Chol 201-239 mg/dl borderline risk Chol 240 mg/dl and greater high risk Cholesterol in LDL [Mass/Vol] 87\S\87 Normal 0-100 [facility] [place] [facility] Work Phone: Comment on [...] RBC Auto (Bld) [#/Vol] 6.4 10*3/uL 4.1-10.5 [facility] Lipid Panelon 10-29-2022 Cholesterol [Mass/Vol] 167 mg/dL Normal 140-200 [facility] Comment on above: Order Comment: SAVITA HALL JKLesley Result Comment: Chol less than 200 mg/dl low risk Chol 201-239 mg/dl borderline risk Chol 240 mg/dl and greater high risk Performed By: #### C BC, ALT, BMP, AST, LIPID #### [facility] [address] Cholesterol in HDL [Mass/Vol] 45 mg/dL Normal 29-71 [facility] Comment on above: Order Comment: SAVITA GARIBAY Result Comment: HDL CHOL ATP-III CLASSIFICATION Cardiovascular Risk HDL > or equal to 60 mg/dL LOW HDL < 40 mg/dL HIGH Performed By: #### C BC, ALT, BMP, AST, LIPID #### [facility] [address] Cholesterol.total/Margie sterol in HDL [Mass ratio] 3.7 {ratio} Normal <5.0 [facility] Comment on above: Order Comment: SAVITA GARIBAY Result Comment: PERF ORMED BY: [facility] [address] [place] [address] PATHOLOGIST TOMATO PASTE MAKER ARDEN MELTON M.D. Performed By: #### C BC, ALT, BMP, AST, LIPID #### [facility] [address] LDL Cholesterol,Calculated 87 mg/dL Normal 0-100 [facility] Comment on above: Order Comment: SAVITA GARIBAY Result Comment: LDL ATP III CLASSIFICATION LDL less than 100 mg/dL Optimal LDL 100-129 mg/dL Near or above optimal LDL 130-159 mg/dL Borderline high LDL 160-189 mg/dL High LDL greater than 189 mg/dL Very high Performed By: #### C BC, ALT, BMP, AST, LIPID #### [facility] [address] Triglyceride w/Reflex 174 mg/dL High 0-149 [facility] Comment on above: Order Comment: SAVITA GARIBAY Result Comment: TRIG ATP III CLASSIFICATION TRIG less than 150 mg/dL Normal TRIG 150-199 mg/dL Borderline high TRIG 200-500 mg/dL High TRIG greater than 500 mg/dL Very high Standard traceable to the Center for Disease Conrtrol and Prevention (CDC) test method. Performed By: #### C BC, ALT, BMP, AST, LIPID #### [facility] [address] [place] [id number] [facility] VLDL CHOLESTEROL 34 mg/dL Normal [facility] Comment on above: Order Comment: SAVITA GARIBAY Performed By: #### C BC, ALT, BMP, AST, LIPID #### [facility] [address] [place] [id number] [facility] Lymphocytes Auto (Bld) [#/Vo l]Ordered By: Israel Escamilla on 10-29-2022 Lymphocytes (Bld) [#/Vol] 1.8 10*3/uL 1.00-4.8 [facility] Lymphocytes/100 WBC Auto (Bl d)Ordered By: Israel Escamilla on 10-29-2022 Lymphocytes/100 WBC (Bld) 27.6 % . [facility] MCH Auto (RBC) [Entitic mass ]Ordered By: Israel Escamilla on 10-29-2022 MCH (RBC) [Entitic mass] 31.1 pg 27.5-35.2 [facility] MCHC Auto (RBC) [Mass/Vol]Or dered By: Israel Escamilla on 10-29-2022 MCHC (RBC) [Mass/Vol] 33.9 g/dL 32.5-35.6 [facility] MCV Auto (RBC) [Entitic vol] Ordered By: Israel Escamilla on 10-29-2022 MCV (RBC) [Entitic vol] 91.6 fL 83.5-101 [facility] Monocytes Auto (Bld) [#/Vol] Ordered By: Israel Escamilla on 10-29-2022 Monocytes (Bld) [#/Vol] 0.6 10*3/uL 0.0-0.8 [facility] Monocytes/100 WBC Auto (Bld) Ordered By: Israel Escamilla on 10-29-2022 Monocytes/100 WBC (Bld) 8.9 % . [facility] Neutrophils Auto (Bld) [#/Vo l]Ordered By: Israel Escamilla on 10-29-2022 Neutrophils (Bld) [#/Vol] 3.9 10*3/uL 1.8-7.7 [facility] Neutrophils/100 WBC Auto (Bl d)Ordered By: Israel Escamilla on 10-29-2022 Neutrophils/100 WBC (Bld) 61.5 % . [facility] No Panel InformationOrdered By: Israel Escamilla on 10-29-2022 Estimated GFR (CKD-EPI) > 60.0 mL/Min [facility] Creatinine Clearance (Chem N/A [facility] No Panel Informationon 10-29 61.5\S\61.5 Normal . [facility] [address] DO Work Phone: 9.6\S\9.6 Normal 6.6-10.1 [facility] [place] [address] DO Work Phone: 124\S\124 below low threshold 150-450 [facility] [place] [address] DO Work Phone: 14.0\S\14.0 Normal 12.0-14.8 [facility] [address] DO Work Phone: 33.9\S\33.9 Normal 32.5-35.6 [facility] [address] DO Work Phone: 31.1\S\31.1 Normal 27.5-35.2 [facility] [address] DO Work Phone: 3.9\S\3.9 Normal 1.8-7.7 [facility] DO Work Phone: 0.1\S\0.1 Normal 0.0-0.45 [facility] [address] DO Work Phone: 0.6\S\0.6 Normal 0.0-0.8 [facility] DO Work Phone: 1.4\S\1.4 Normal . [facility] [address] DO Work Phone: 8.9\S\8.9 Normal . [facility] [place] [address] DO Work Phone: 27.6\S\27.6 Normal . [facility] [place] DO Work Phone: 0.0\S\0.0 Normal 0.0-0.2 [facility] [place] [address] DO Work Phone: Comment on above: PERFORMED BY:[facility] [place], [place] [phone] MEDICAL DIRECTORARDEN MELTON M.D. 1.8\S\1.8 Normal 1.00-4.8 [facility] [place] [address] DO Work Phone: 91.6\S\91.6 Normal 83.5-101 [facility] [place] [address] DO Work Phone: 44.1\S\44.1 Normal 38.8-50.0 [facility] [place] [address] DO Work Phone: 15.0\S\15.0 Normal 13.0-17.0 [facility] [place] [address] DO Work Phone: 4.82\S\4.82 Normal 3.90-5.60 [facility] [place] [address] DO Work Phone: 6.4\S\6.4 Normal 4.1-10.5 [facility] [place] [address] DO Work Phone: > 60.0 Normal [facility] [place] [address] DO Work Phone: 8.1\S\8.1 Normal 6.0-15.0 [facility] [place] [address] DO Work Phone: 9.5\S\9.5 Normal 8.6-10.3 [facility] [place] [address] DO Work Phone: 34.5\S\34.5 above high threshold 21.0-31.0 [facility] [place] [address] DO Work Phone: 103\S\103 Normal 98-107 [facility] [place] [address] DO Work Phone: 4.6\S\4.6 Normal 3.5-5.1 [facility] [place] [address] DO Work Phone: 141\S\141 Normal 136-145 [facility] Crystal Huffman DO Work Phone: 0.77\S\0.77 Normal 0.70-1.30 [facility] Crystal haney 250 DO Work Phone: [phone] 00 14\S\14 Normal 7-25 [facility] Crystal Huffman DO Work Phone: [phone] 105\S\105 above high threshold 70-100 [facility] Crystal Huffman DO Work Phone: [phone] Comment on above: Random Glucose Refer ence Range is dependent on time and content of last meal. Glucose of more than 200 mg/dL in a nonstressed, ambulatory subject supports the diagnosis of Diabetes Mellitus. ADA recommended reference range 17\S\17 Normal 13-39 [facility] Crystal Huffman DO Work Phone: [phone] 13\S\13 Normal 7-52 [facility] Crystal Huffman DO Work Phone: [phone] 3.7\S\3.7 Normal <5.0 [facility] Crystal Huffman DO Work Phone: [phone] Comment on above: PERFORMED BY:[place] [address] [address] [place], [place] [id number] MEDICAL DIRECTORARDEN MELTON M.D. 34\S\34 Normal [facility] Crystal Huffman DO Work Phone: [phone] 174\S\174 above high threshold 0-149 [facility] Crystal Huffman DO Work Phone: [phone] Comment on above: TRIG ATP III CLASSIF ICATION TRIG less than 150 mg/dL Normal TRIG 150-199 mg/dL Borderline high TRIG 200-500 mg/dL High TRIG greater than 500 mg/dL Very high Standard traceable to the Center for Disease Conrtrol and Prevention (CDC) test method. 45\S\45 Normal 29-71 [facility] Crystal Huffman DO Work Phone: [phone] Comment on above: HDL CHOL ATP-III CLA SSIFICATION Cardiovascular Risk HDL > or equal to 60 mg/dL LOW HDL < 40 mg/dL HIGH Nucleated erythrocytes [Pres ence] in Blood by Automated countOrdered By: Israel Escamilla on 10-29-2022 Nucleated RBC Auto Ql (Bld) 0.1 /100{WBC} 0-0.5 [facility] Platelet mean volume Auto (B ld) [Entitic vol]Ordered By: Israel Escamilla on 10-29-2022 Platelet mean volume (Bld) [Entitic vol] 9.6 fL 6.6-10.1 [facility] Platelets Auto (Bld) [#/Vol] Ordered By: Israel Escamilla on 10-29-2022 Platelets (Bld) [#/Vol] 124 10*3/uL 150-450 [facility] Potassium [Moles/volume] in Serum or PlasmaOrdered By: Israel Escamilla on 10-29-2022 Potassium [Moles/Vol] 4.6 mmol/L 3.5-5.1 [facility] RBC Auto (Bld) [#/Vol]Ordere d By: Israel Escamilla on 10-29-2022 RBC (Bld) [#/Vol] 4.82 10*6/uL 3.90-5.60 [facility] Serum or plasma anion gap de terminationOrdered By: Israel Escamilla on 10-29-2022 Anion gap [Moles/Vol] 8.1 mmol/L 6.0-15.0 [facility] Serum or plasma high density lipoprotein (HDL) cholesterol measurementOrdered By: Israel Escamilla on 10-29-2022 Cholesterol in HDL [Mass/Vol] 45 mg/dL 29-71 [facility] Comment on above: HDL CHOL ATP-III CLA SSIFICATION Cardiovascular RiskHDL > or equal to 60 mg/dL LOWHDL < 40 mg/dL HIGH Serum or plasma total choles terol/high density lipoprotein (HDL) cholesterol mass ratOrdered By: Israel Escamilla on 10-29-2022 Cholesterol.total/Margie sterol in HDL [Mass ratio] 3.7 {ratio} <5.0 [facility] Sodium [Moles/volume] in Ser um or PlasmaOrdered By: Israel Escamilla on 10-29-2022 Sodium [Moles/Vol] 141 mmol/L 136-145 [facility] Triglyceride [Mass/volume] i n Serum or PlasmaOrdered By: Israel Escamilla on 10-29-2022 Triglyceride [Mass/Vol] 174 mg/dL 0-149 [facility] Comment on above: TRIG ATP III CLASSIF ICATIONTRIG less than 150 mg/dL NormalTRIG 150-199 mg/dL Borderline highTRIG 200-500 mg/dL High TRIG greater than 500 mg/dL Very highStandard traceable to the Center for Disease Conrtrol and Prevention (CDC) test method. Urea nitrogen [Mass/volume] in Serum or PlasmaOrdered By: Israel Escamilla on 10-29-2022 Urea nitrogen [Mass/Vol] 14 mg/dL 7-25 [facility] WBC Auto (Bld) [#/Vol]Ordere d By: Israel Escamilla on 10-29-2022 WBC (Bld) [#/Vol] 6.4 10*3/uL 4.1-10.5 [facility] Office Visit (Cardiology)on 09-30-2022 Follow-up [...] we can help. You may also call [phone] for free resources and assistance.; Status:Complete - [...] after having a watchman's device implanted at [facility] 2022 with no complications. When his [...] History Pr (more content not included)... Normal [employer] Tobacco Screening.on 023 Adult depression screening assessment No [facility] organgir.am [place] [address] DO Work Phone: Fall risk assessment a) No falls within the last year [facility] [place] Work Phone: Tobacco use status CPHS a) Yes [facility] [place] Work Phone: Tobacco Screening. Yes [facility] [place] DO Work Phone: Glucose Glucometer (BldC) [M ass/Vol]Ordered By: Consuelo Johnson on 09-03-2022 Glucose [Mass/Vol] 112 mg/dL [facility] Comment on above: Random Glucose Refer ence Range is dependent on time and content of last meal. Glucose of more than 200 mg/dL in a nonstressed, ambulatory subject supports the diagnosis of Diabetes Mellitus. No Panel InformationOrdered By: Consuelo Johnson on 09-03-2022 Bedside Glucose Comment Glu2: cleaned meter [facility] CT Watchman Full Contraston 08-25-2022 CT Watchman Full Contrast Normal [facility] [address] [place] Work Phone: Echocardiogramon 08-25-2022 Echocardiography [facility], [address] [place] [address] and TRANSTHORACIC ECHOCARDIOGRAM REPORT Patient Name: SEN Love Physician: [id number] Brent Mendez MD Study Date: 08/25/2022 Referring BRUCE WOLF Physician: MRN/PID: [id number] PCP: Accession/Order#: [id number] [facility] Cath Location: Lab Date of : 1950 Fellow: Gender: M Nurse: Admit Date: 08/25/2022 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 QUANTITATIVE DATA SUMMARY: [id number] Brent Mendez MD Electronically signed on 08/25/2022 at 4:26:29 PM Final (Updated) Normal [facility] Electrocardiogram 12 Leadon 08-25-2022 Electrocardiogram 12 Lead Ventricular Rate 86 Atrial Rate 86 P-R Interval 160 QRS Duration 106 Q-T Interval 378 QTC Calculation(Bazett) 452 P [place] 81 R [place] -71 T [place] 69 QRS Count 15 Q Onset 209 P Onset 129 P Offset 187 T Offset 398 QTC Fredericia 426 Diagnosis Class Abnormal Diagnosis Normal sinus rhythm Left anterior fascicular block Abnormal ECG No previous ECGs available Confirmed by Jamin Landis ([id number]) on 08/31/2022 3:58:37 PM Normal [facility] GLUCOSE-POCTon 08-25-2022 Glucose [Mass/Vol] 97 mg/dL Normal 74 - 99 [facility] Comment on above: Performed By: #### G JOSSELIN ####[id number] [place] [address] LAAC-Left Atrial Appendage C phuc 08-25-2022 LAAC-Left Atrial Appendage Closure [facility], Medical Surgical Tech, [id number] [place] [address] Cardiovascular Catheterization Report Patient Name: SEN GARCIA Performing Physician: [id number] Alex MD Study Date: 08/25/2022 Verifying Physician: Evaristo Alex MD MRN/PID: [id number] Orchard[employer]/Co-scrub: Accession/Order#: [id number] Fellow: [id number] Eloisa Fallon MD Date of : 1950 Fellow: Gender: M Referring Physician: KATIA ALEX Admit Date: Referring Physician: lenore Surgeon: Referring Physician: [id number] Israel Escamilla MD, [facility] Study: LAAC-Left Atrial Appendage Closure Procedure [...] ICE guidance, transseptal puncture was with a Wiley Ford needle, accessing the left atrium. The transseptal tract was then dilated with a Watchman Fixed Curve access sheath and the ICE probe was advanced through the dilated tract into the left atrium. Next, a 6 Welsh angled pigtail was advanced through the delivery [...] NURSE 1 + + + Stephanie Correa RT PROC WHARF LABORER 1 + + + Eloisa Fallon MD [...] Kit - Qty: 2 Each Part #: [id number] + + + 08/25/2022 1:09:21 PM {7F [...] + 08/25/2022 1:09:52 PM {6Fr C Catheters} [employer] 6 Fr [id number] Impulse x 100cm - Qty: 1 Each Part #: 294 + + + 08/25/2022 1:10:03 PM {Diagnostic Wires} Denis Jose-T-Emerson .035mm x 145cm Fixed core - Qty: 1 Each Part #: [id number] + + + 08/25/2022 1:10:06 PM {Closure Devices} CARDIVA 6-10 Fr Vascade MVP Venous Vascular Closure System - Qty: 2 Each Part #: 800 (more content not included)... Normal [facility] Laboratory - Chemistry and C hemistry - challengeon 08-25-2022 Glucose [Mass/Vol] 97 mg/dL 74 - 99 [facility] di[facility] [address] [place] Work Phone: No Panel Informationon 08-25 [facility] [address] [place] Work Phone: [email or web address]?[email or web address] yDateTime?PatientID=[id number]&Date= 3&Time=10%3a00%3a35%3a 00&TestType=ECG&Site=1 &OutputType=PDF&Ext=PD F [facility] [address] [place] Work Phone: Normal sinus rhythm [facility]-Ca rdiolog y[facility] [address] [place] Work Phone: Abnormal [facility] [address] [place] Work Phone: [phone] [facility] [address] [place] Work Phone: [phone] [facility] [address] [place] Work Phone: [phone] 1 [facility] [address] [place] Work Phone: [phone] 1 [facility] [address] [place] Work Phone: [phone] 1 [facility] [address] [place] Work Phone: [phone] [facility] [address] [place] Work Phone: [phone] 1 [facility] [address] [place] Work Phone: [phone] 1 [facility] [address] [place] Work Phone: [phone] 1 [facility] [address] [place] Work Phone: [phone] 452 1 [facility] [address] [place] Work Phone: [phone] 1 [facility] [address] [place] Work Phone: [phone] 106 1 [facility] [address] [place] Work Phone: [phone] 160 1 [facility] [address] [place] Work Phone: [phone] 1 [facility] [address] [place] Work Phone: [phone] Order Reconciliationon 08-25 Order Reconciliation Page 1 [...] Needed ferrous sulfate 325 mg (65 mg [place] vie[place] (more content not included)... Normal [facility] CT WATCHMAN FULL CONTRAST on 08-25-2022 CT WATCHMAN FULL CONTRAST Patient Name: SEN GARCIA STUDY: CT WATCHMAN FULL CONTRAST; 08/25/2022 9:43 am INDICATION: pre procedure FIDELIA sizing and thrombus detection I48.0: Paroxysmal atrial fibrillation. COMPARISON: None. ACCESSION NUMBER(S): [id number] ORDERING CLINICIAN: KATIA ALEX TECHNIQUE: Using multi detector CT technology,axial imaging with prospective gating was performed of the chest following the intravenous administration of contrast material. A low-osmolar contrast agent was used ( 70 milliliterOMNIPAQUE 350). Next, the imaging was repeated with prospective gating after 10 sec delay as per watchman protocol. Also, [...] the fossa ovalis without gross evidence of bcgap-zz-hfdw shunting. INTERVENTRICULAR SEPTUM: Intact. AORTIC VALVE: The [...] Electronically signed by: Rashaad SOLORZANO MD Normal [facility] Discharge [id number] Discharge Profile2 Discharge Orders: Anticipated Discharge Date: Anticipated Discharge [id number] Problem List: Medical History: Presence of Watchman [...] 24 hours (diarrhea). Any new concerning symptoms. Medical Surgical Tech Interventional: Patient Instructions, Next 24 hours: DO [...] have any concerns, you may contact the Medical Surgical Tech or if any of these symptoms become excessive, contact your administrative library assistant or go to the emergency room. No [...] significant abnormal lab values PCP: Dr. Abreu Orchardist: Dr. Escamilla I was asked by Dr. [...] not seek emergency attention on this occasion. Adrian (more content not included)... Normal [facility] BASIC METABOLIC PANELon 03-0 Anion gap [Moles/Vol] 10 mmol/L Normal 10 - 20 [facility] Comment on above: Performed By: #### B MP #### [address] [id number] Calcium [Mass/Vol] 9.3 mg/dL Normal 8.6 - 10.3 [facility] Comment on above: Performed By: #### B MP #### [address] [id number] Chloride [Moles/Vol] 103 mmol/L Normal 98 - 107 [facility] [place] Comment on above: Performed By: #### B MP #### [address] [id number] Creatinine [Mass/Vol] 0.71 mg/dL Normal 0.50 - 1.30 [facility] Comment on above: Performed By: #### B MP #### [address] [id number] eGFR MALE >90 Normal >90 [facility] Comment on above: Result Comment: CALC ULATIONS OF ESTIMATED GFR ARE PERFORMED USING THE 2020 CKD-EPI STUDY REFIT EQUATION WITHOUT THE RACE VARIABLE FOR THE IDMS-TRACEABLE CREATININE METHODS. https://jasn.asnjournals.org/content/early//ASN.2020 317929 Performed By: #### B MP #### [address] [id number] Glucose [Mass/Vol] 98 mg/dL Normal 74 - 99 [facility] Comment on above: Performed By: #### B MP #### [address] [id number] HCO3 (Bld) [Moles/Vol] 32 mmol/L Normal 21 - 32 [facility] Comment on above: Performed By: #### B MP #### [address] [id number] Potassium [Moles/Vol] 4.4 mmol/L Normal 3.5 - 5.3 [facility] Comment on above: Performed By: #### B MP #### [address] [id number] Sodium [Moles/Vol] 141 mmol/L Normal 136 - 145 [facility] Comment on above: Performed By: #### B MP #### [address] [id number] Urea nitrogen [Mass/Vol] 12 mg/dL Normal 6 - 23 [facility] Comment on above: Performed By: #### B MP #### [address] [id number] CBCon 08-05-2022 Erythrocyte distribution width (RBC) [Ratio] 13.6 % Normal 11.5 - 14.5 [facility] Comment on above: Performed By: #### C BC ####[facility] [place] [address] [phone] Hematocrit (Bld) [Volume fraction] 44.8 % Normal 41.0 - 52.0 [facility] Comment on above: Performed By: #### C BC ####[facility] [place] [address] [id number] Hemoglobin (Bld) [Mass/Vol] 14.1 g/dL Normal 13.5 - 17.5 [facility] Comment on above: Performed By: #### C BC ####[facility] [place] [address] [phone] MCHC (RBC) [Mass/Vol] 31.5 g/dL Low 32.0 - 36.0 [facility] Comment on above: Performed By: #### C BC ####[address] [id number] MCV (RBC) [Entitic vol] 97 fL Normal 80 - 100 [facility] Comment on above: Performed By: #### C BC ####[facility] [place], [place] [id number] Platelets (Bld) [#/Vol] 131 10*3/uL Low 150 - 450 [facility] Comment on above: Performed By: #### C BC ####[facility] [place], [place] [id number] RBC 4.62 x10E12/L Normal 4.50 - 5.90 [facility] Comment on above: Performed By: #### C BC ####[facility] [place], [place] [id number] WBC (Bld) [#/Vol] 6.2 10*3/uL Normal 4.4 - 11.3 [facility] Comment on above: Performed By: #### C BC ####[facility] [place], [place] [id number] Laboratory - Chemistry and C hemistry - challengeon 08-05-2022 Anion gap [Moles/Vol] 10 mmol/L 10 - 20 MG- Cardiolog y-[facility] [place] [address] [place] Work Phone: Calcium [Mass/Vol] 9.3 mg/dL 8.6 - 10.3 MG-Car diolog y-[facility] [place] [address] [place] Work Phone: [phone] Chloride [Moles/Vol] 103 mmol/L 98 - 107 MG-C ardiolog y-[facility] [email or web address] [address] [place] Work Phone: CO2 [Moles/Vol] 32 mmol/L 21 - 32 MG-Cardio log y-[facility] [employer] [address] [place] Work Phone: Creatinine [Mass/Vol] 0.71 mg/dL See Below MG- Cardiolog y-[facility] [employer] [address] [place] Work Phone: Comment on above: Reference Range: 0.5 0 - 1.30 Glucose [Mass/Vol] 98 mg/dL 74 - 99 MG-Car diolog y-[facility] Jada Mel[address] [place] Work Phone: Potassium [Moles/Vol] 4.4 mmol/L 3.5 - 5.3 MG- Cardiolog y-[facility] Jada [address] [place] Work Phone: Sodium [Moles/Vol] 141 mmol/L 136 - 145 MG-Car diolog y-[facility] Jada [address] [place] Work Phone: [phone] Urea nitrogen [Mass/Vol] 12 mg/dL 6 - 23 MG-Cardiolog y-[facility] Jada [address] [place] Work Phone: Laboratory - Hematology and Cell countson 08-05-2022 Erythrocyte distribution width (RBC) [Ratio] 13.6 % See Below -Cardiolog y-[facility] Jada Mel[address] [place] Work Phone: Comment on above: Reference Range: 11. 5 - 14.5 Hematocrit (Bld) [Volume fraction] 44.8 % See Below -Cardiolog y-[facility] [address] [place] Work Phone: Comment on above: Reference Range: 41. 0 - 52.0 Hemoglobin (Bld) [Mass/Vol] 14.1 g/dL See Below -Cardiolog y-[facility] [address]ada [address] [place] Work Phone: Comment on above: Reference Range: 13. 5 - 17.5 MCHC (RBC) [Mass/Vol] 31.5 g/dL below low threshold See Below -Cardiolog y-[facility] [address] [place] Work Phone: Comment on above: Reference Range: 32. 0 - 36.0 MCV (RBC) [Entitic vol] 97 fL 80 - 100 M G-Cardiolog y-[facility] [address]ada [address] [place] Work Phone: [phone] Platelets (Bld) [#/Vol] 131 10*3/uL below lo w threshold 150 - 450 [facility] [place]ada [address] [place] Work Phone: [phone] RBC (Bld) [#/Vol] 4.62 {x10E12/L} See Below MG -Cardiolog y-[facility] Jada Mel[address] [place] Work Phone: Comment on above: Reference Range: 4.5 0 - 5.90 WBC (Bld) [#/Vol] 6.2 10*3/uL 4.4 - 11.3 MG-Car diolog y-[facility] Jada [employer] [address] [place] Work Phone: No Panel Informationon 08-05 >90 >90 MG-Cardiolog y-[facility] Jada Mel[address] [place] Work Phone: Comment on above: CALCULATIONS OF YASIR MATED GFR ARE PERFORMED USING THE 2020 CKD-EPI STUDY REFIT EQUATION WITHOUT THE RACE VARIABLE FOR THE IDMS-TRACEABLE CREATININE METHODS.https://jasn.asnjournals.org/content/early// ASN.8256915318 Office Visit (Cardiology)on 08-05-2022 Follow-up visit Diagnoses/Problems Assessed Paroxysmal atrial fibrillation (427.31) (I48.0) Chief Complaint SEN GARCIA is being seen for a cardiovascular evaluation . LAAO. History of Present Illness PCP: Dr. Abreu Orchardist: Dr. Escamilla I was asked by Dr. [...] MG Oral TabletTake 1 tablet twice daily Mittie 7.5-325 MG TABSTAKE 1 TABLET EVERY 6 [...] nocturnal d (more content not included)... Normal [employer] Tobacco Screening.on 023 Fall risk assessment a) No falls within the last year MG-Cardiolog -[facility] [employer] [place] Work Phone: Tobacco use status CPHS a) Yes M G-Cardiolog [facility] [address] [place] Work Phone: Absolute reticulocyte countO rdered By: Mellissa Padilla on 08-04-2022 Reticulocytes (Bld) [#/Vol] 0.045 10*6/uL 0.024-0.084 [facility] Alanine aminotransferase [En zymatic activity/volume] in Serum or PlasmaOrdered By: Mellissa Padilla on 08-04-2022 ALT [Catalytic activity/Vol] 12 U/L 7-52 [facility] Albumin [Mass/volume] in Ser um or Plasma by Bromocresol green (BCG) dye binding methoOrdered By: Mellissa Padilla on 08-04-2022 Albumin BCG dye [Mass/Vol] 4.5 g/dL 3.5-5.7 [facility] Alkaline phosphatase [Enzyma tic activity/volume] in Serum or PlasmaOrdered By: Mellissa Padilla on 08-04-2022 ALP [Catalytic activity/Vol] 52 U/L 34-104 [facility] Aspartate aminotransferase [ Enzymatic activity/volume] in Serum or PlasmaOrdered By: Mellissa Padilla on 08-04-2022 AST [Catalytic activity/Vol] 17 U/L 13-39 [facility] Basophils Auto (Bld) [#/Vol] Ordered By: Mellissa Padilla on 08-04-2022 Basophils (Bld) [#/Vol] 0.0 10*3/uL 0.0-0.2 [facility] Basophils/100 WBC Auto (Bld) Ordered By: Mellissa Padilla on 08-04-2022 Basophils/100 WBC (Bld) 0.6 % . F [facility] Bilirubin.total [Mass/volume ] in Serum or PlasmaOrdered By: Mellissa Padilla on 08-04-2022 Bilirubin [Mass/Vol] 0.4 mg/dL 0.3-1.0 [facility] Calcium [Mass/volume] in Ser um or PlasmaOrdered By: Mellissa Padilla on 08-04-2022 Calcium [Mass/Vol] 9.6 mg/dL 8.6-10.3 [facility] Carbon dioxide, total [Moles /volume] in Serum or PlasmaOrdered By: Mellissa Padilla on 08-04-2022 CO2 [Moles/Vol] 29.9 mmol/L 21.0-31.0 [facility] Chloride [Moles/volume] in S rodo or PlasmaOrdered By: Mellissa Padilla on 08-04-2022 Chloride [Moles/Vol] 104 mmol/L 98-107 [facility] Creatinine [Mass/volume] in Serum or PlasmaOrdered By: Mellissa Padilla on 08-04-2022 Creatinine [Mass/Vol] 0.72 mg/dL 0.70-1.30 [facility] Eosinophils Auto (Bld) [#/Vo l]Ordered By: Mellissa Padilla on 08-04-2022 Eosinophils (Bld) [#/Vol] 0.1 10*3/uL 0.0-0.45 [facility] Eosinophils/100 WBC Auto (Bl d)Ordered By: Mellissa Padilla on 08-04-2022 Eosinophils/100 WBC (Bld) 1.0 % . [facility] Erythrocyte distribution wid th Auto (RBC) [Ratio]Ordered By: Mellissa Padilla on 08-04-2022 Erythrocyte distribution width (RBC) [Ratio] 15.3 % 12.0-14.8 [facility] Ferritin [Mass/volume] in Se rum or PlasmaOrdered By: Mellissa Padilla on 08-04-2022 Ferritin [Mass/Vol] 29.7 ng/mL 23.9-336.2 [facility] Folate [Mass/volume] in Seru m or PlasmaOrdered By: Mellissa Padilla on 08-04-2022 Folate [Mass/Vol] ng/mL >5.9 [facility] Comment on above: Folate reference ran ge: >5.9 ng/mlThe WHO technical consultation on folate and vitamin [id number] has determined that folate concentrations lessthan 4 ng/ml are considered deficient. Globulin Calc (S) [Mass/Vol] Ordered By: Mellissa Padilla on 08-04-2022 Globulin (S) [Mass/Vol] 2.2 g/dL F [facility] Glucose [Mass/volume] in Ser um or PlasmaOrdered By: Mellissa Padilla on 08-04-2022 Glucose [Mass/Vol] 108 mg/dL 74-109 [facility] Comment on above: ADA recommended refe rence rangeRandom Glucose Reference Range is dependent on time and content of last meal. Glucose of more than 200 mg/dL in a nonstressed, ambulatory subject supports the diagnosis of Diabetes Mellitus. Haptoglobin [Mass/volume] in Serum or PlasmaOrdered By: Mellissa Padilla on 08-04-2022 Haptoglobin [Mass/Vol] 96 mg/dL 37-246 [facility] Hematocrit Auto (Bld) [Volum e fraction]Ordered By: Mellissa Padilla on 08-04-2022 Hematocrit (Bld) [Volume fraction] 44.2 % 38.8-50.0 [facility] Hemoglobin [Mass/volume] in BloodOrdered By: Mellissa Padilla on 08-04-2022 Hemoglobin (Bld) [Mass/Vol] 14.6 g/dL 13.0-17.0 [facility] Iron [Mass/volume] in Serum or PlasmaOrdered By: Mellissa Padilla on 08-04-2022 Iron [Mass/Vol] 75 ug/dL 50-212 [facility] Iron binding capacity [Mass/ volume] in Serum or PlasmaOrdered By: Mellissa Padilla on 08-04-2022 Iron binding capacity [Mass/Vol] 402 ug/dL 255-450 [facility] Iron saturation [Mass Fracti on] in Serum or PlasmaOrdered By: Mellissa Padilla on 08-04-2022 Iron saturation [Mass fraction] 18.7 % 20-50 [facility] Laboratory - Chemistry and C hemistry - challengeOrdered By: Mellissa Padilla on 08-04-2022 GFR/1.73 sq M.predicted MDRD (S/P/Bld) [Vol rate/Area] mL/min/{1.73_m2} [facility] Lactate dehydrogenase [Enzym atic activity/volume] in Serum or Plasma by Lactate to pyOrdered By: Mellissa Padilla on 08-04-2022 LDH Lactate to pyruvate reaction [Catalytic activity/Vol] 172 U/L 140-271 [facility] Leukocytes [#/volume] correc chivo for nucleated erythrocytes in Blood by Automated counOrdered By: Mellissa Padilla on 08-04-2022 WBC corrected for nucl RBC Auto (Bld) [#/Vol] 5.7 10*3/uL 4.1-10.5 [facility] Lymphocytes Auto (Bld) [#/Vo l]Ordered By: Mellissa Padilla on 08-04-2022 Lymphocytes (Bld) [#/Vol] 1.7 10*3/uL 1.00-4.8 [facility] Lymphocytes/100 WBC Auto (Bl d)Ordered By: Mellissa Padilla on 08-04-2022 Lymphocytes/100 WBC (Bld) 29.4 % . [facility] MCH Auto (RBC) [Entitic mass ]Ordered By: Mellissa Padilla on 08-04-2022 MCH (RBC) [Entitic mass] 30.4 pg 27.5-35.2 [facility] MCHC Auto (RBC) [Mass/Vol]Or dered By: Mellissa Padilla on 08-04-2022 MCHC (RBC) [Mass/Vol] 33.1 g/dL 32.5-35.6 [facility] MCV Auto (RBC) [Entitic vol] Ordered By: Mellissa Padilla on 08-04-2022 MCV (RBC) [Entitic vol] 91.8 fL 83.5-101 F [facility] Monocytes Auto (Bld) [#/Vol] Ordered By: Mellissa Padilla on 08-04-2022 Monocytes (Bld) [#/Vol] 0.5 10*3/uL 0.0-0.8 [facility] Monocytes/100 WBC Auto (Bld) Ordered By: Mellissa Padilla on 08-04-2022 Monocytes/100 WBC (Bld) 9.1 % . F [facility] Neutrophils Auto (Bld) [#/Vo l]Ordered By: Mellissa Padilla on 08-04-2022 Neutrophils (Bld) [#/Vol] 3.4 10*3/uL 1.8-7.7 [facility] Neutrophils/100 WBC Auto (Bl d)Ordered By: Mellissa Padilla on 08-04-2022 Neutrophils/100 WBC (Bld) 59.9 % . [facility] No Panel InformationOrdered By: Mellissa Padilla on 08-04-2022 Pharmacy Creatinine Clearance (Chem 86.20 [facility] Nucleated erythrocytes [Pres ence] in Blood by Automated countOrdered By: Mellissa Padilla on 08-04-2022 Nucleated RBC Auto Ql (Bld) 0.2 /100{WBC} 0-0.5 [facility] Platelet mean volume Auto (B ld) [Entitic vol]Ordered By: Mellissa Padilla on 08-04-2022 Platelet mean volume (Bld) [Entitic vol] 9.8 fL 6.6-10.1 [facility] Platelets Auto (Bld) [#/Vol] Ordered By: Mellissa Padilla on 08-04-2022 Platelets (Bld) [#/Vol] 121 10*3/uL 150-450 [facility] Potassium [Moles/volume] in Serum or PlasmaOrdered By: Mellissa Padilla on 08-04-2022 Potassium [Moles/Vol] 4.4 mmol/L 3.5-5.1 [facility] Protein [Mass/volume] in Ser um or PlasmaOrdered By: Mellissa Padilla on 08-04-2022 Protein [Mass/Vol] 6.7 g/dL 6.4-8.9 [facility] RBC Auto (Bld) [#/Vol]Ordere d By: Mellissa Padilla on 08-04-2022 RBC (Bld) [#/Vol] 4.82 10*6/uL 3.90-5.60 [facility] Reticulocytes/100 RBC Auto ( Bld)Ordered By: Mellissa Padilla on 08-04-2022 Reticulocytes/100 RBC (Bld) 0.9 % 0.5-1.5 [facility] Serum or plasma albumin/glob ulin mass ratioOrdered By: Mellissa Padilla on 08-04-2022 Albumin/Globulin [Mass ratio] 2.0 {ratio} [facility] Serum or plasma anion gap de terminationOrdered By: Mellissa Padilla on 08-04-2022 Anion gap [Moles/Vol] 13.5 mmol/L 6.0-15.0 [facility] Sodium [Moles/volume] in Ser um or PlasmaOrdered By: Mellissa Padilla on 08-04-2022 Sodium [Moles/Vol] 143 mmol/L 136-145 [facility] Transferrin [Mass/volume] in Serum or PlasmaOrdered By: Mellissa Padilla on 08-04-2022 Transferrin [Mass/Vol] 287 mg/dL 203-362 Fi [facility] Urea nitrogen [Mass/volume] in Serum or PlasmaOrdered By: Mellissa Padilla on 08-04-2022 Urea nitrogen [Mass/Vol] 11 mg/dL 7-25 [facility] Vitamin B12 ser/plasOrdered By: Mellissa Padilla on 08-04-2022 Cobalamin (Vitamin B12) [Mass/Vol] 372 pg/mL 180-914 [facility] WBC Auto (Bld) [#/Vol]Ordere d By: Mellissa Padilla on 08-04-2022 WBC (Bld) [#/Vol] 5.7 10*3/uL 4.1-10.5 [facility] CBC AUTO DIFFon 07-02-2022 BASO # 0.1 103/ul Normal 0.0-0.1 [facility] Comment on above: Performed By: #### B SAMARIA MORILLO #### [facility] [address] [place] [address] Dr. Tori Mills Basophils/100 WBC (Bld) 0.9 % Normal 0.2-2.0 [facility] Comment on above: Performed By: #### B SAMARIA MORILLO #### [facility] [address] [place] [address] Dr. Tori Mills EO # 0.1 103/ul Normal 0.0-0.7 [facility] Comment on above: Performed By: #### B SAMARIA MORILLO #### [facility] [address] [place] [address] Dr. Tori Mills Eosinophils/100 WBC (Bld) 1.4 % Normal 0.9-7.0 [facility] Comment on above: Performed By: #### B YISEL, CMADM #### [facility] [address] [place] [address] Dr. Tori Mills Erythrocyte distribution width (RBC) [Ratio] 15.7 % Critically high 11.0-15.0 [facility] Comment on above: Performed By: #### B YISEL, CMADM #### [facility] [address] [place] [address] Dr. Tori Mills Hematocrit (Bld) [Volume fraction] 33.5 % Critically low 42.0-54.0 [facility] Comment on above: Performed By: #### B YISEL, CMADM #### [facility] [address] [place] [address] Dr. Tori Mills Hemoglobin (Bld) [Mass/Vol] 11.3 g/dL Critically low 14.0-18.0 [facility] Comment on above: Performed By: #### B YISEL, CMADM #### [facility] [address] [place] [address] Dr. Tori Mills IG # 0.03 10e3/ul Normal 0.00-0.03 [facility] Comment on above: Performed By: #### B YISEL, CMADM #### [facility] [address] [place] [address] Dr. Tori Mills IG % 0.5 % Normal 0.0-0.5 [facility] Comment on above: Performed By: #### B YISEL, CMADM #### [facility] [address] [place] [address] Dr. Tori Mills LYMPH # 1.6 103/ul Normal 1.2-3.8 [facility] Comment on above: Performed By: #### B YISEL, CMADM #### [facility] [address] [place] [address] Dr. Tori Mills Lymphocytes/100 WBC (Bld) 27.6 % Normal 20.5-60.0 [facility] Comment on above: Performed By: #### B MP, CMADM #### [facility] [address] [place] [address] Dr. Tori Mills MANUAL DIFF REQ NO Normal [facility] Comment on above: Performed By: #### B MP, CMADM #### [facility] [address] [place] [address] Dr. Tori Mills MCH (RBC) [Entitic mass] 29.1 pg Normal 25.9-34.0 [facility] Comment on above: Performed By: #### B MP, CMADM #### [facility] [address] [place] [address] Dr. Tori Mills MCHC (RBC) [Mass/Vol] 33.7 g/dL Normal 29.9-35.2 [facility] Comment on above: Performed By: #### B MP, CMADM #### [facility] [address] [place] [address] Dr. Tori Mills MCV (RBC) [Entitic vol] 86.3 fL Normal 80.0-94.0 [facility] Comment on above: Performed By: #### B MP, CMADM #### [facility] [address] [place] [address] Dr. Tori Mills MONO # 0.6 103/ul Normal 0.3-0.8 [facility] Comment on above: Performed By: #### B MP, CMADM #### [facility] [address] [place] [address] Dr. Tori Mills Monocytes/100 WBC (Bld) 9.5 % Normal 1.7-12.0 [facility] Comment on above: Performed By: #### B MP, CMADM #### [facility] [address] [place] [address] Dr. Tori Mills NEUT # 3.5 103/ul Normal 1.4-6.5 [facility] Comment on above: Performed By: #### B MP, CMADM #### [facility] [address] [place] [address] Dr. Tori Mills Neutrophils/100 WBC (Bld) 60.1 % Normal 43.0-75.0 [facility] Comment on above: Performed By: #### B MP, CMADM #### [facility] [address] [address] [address] Tori Mills Platelet mean volume (Bld) [Entitic vol] 11.0 fL Normal 9.5-13.5 [facility] Comment on above: Performed By: #### B YISEL, CMADM #### [facility] [address] [address] [address] Tori Mills PLT 175 103/ul Normal 150-450 [facility] Comment on above: Performed By: #### B YISEL, CMADM #### [facility] [address] [place] [address] Dr. Tori Mills RBC 3.88 106/ul Critically low 4.70-6.10 [facility] Comment on above: Performed By: #### B YISEL, CMADM #### [facility] [address] [address] [address] Tori Mills WBC 5.8 103/ul Normal 4.0-11.0 [facility] Comment on above: Performed By: #### B YISEL, CMADM #### [facility] [address] [address] [address] Tori Mills GLYCOHEMOGLOBIN A1Con 2022 ADA RECOMMENDATION SEE BELOW Normal [facility] Comment on above: Result Comment: ADA RECOMMENDED LIMIT 4.0 - 6.0 ADA THERAPEUTIC TARGET < 7.0 ACTION SUGGESTED > 7.0 Performed By: #### P T #### [facility] [address] [place] [address] Dr. Tori Mills Glucose [Mass/Vol] 91 mg/dL Normal [facility] Comment on above: Performed By: #### P T #### [facility] [address] [place] [address] Dr. Tori Mills HbA1c (Bld) [Mass fraction] 4.8 % Normal 4.5-6.2 [facility] Comment on above: Performed By: #### P T #### [facility] [address] [place] [address] Dr. Tori Mills LIPID PROFILEon 07-02-2022 CHOL-HDL RATIO NORM SEE BELOW Normal [facility] Comment on above: Result Comment: 3.3 - 4.4 LOW RISK 4.4 - 7.1 AVERAGE RISK 7.1 - 11.0 MODERATE RISK >11.0 HIGH RISK Performed By: #### P T #### [facility] [address] [address] [address] Tori Mills Cholesterol [Mass/Vol] 148 mg/dL Normal <=200 [facility] Comment on above: Performed By: #### P T #### [facility] [address] [address] [address] Tori Mills Cholesterol in HDL [Mass/Vol] 48 mg/dL Normal 40-60 [facility] Comment on above: Performed By: #### P T #### [facility] [address] [address] [address] Tori Mills Cholesterol in LDL [Mass/Vol] 65.8 mg/dL Normal [facility] Comment on above: Performed By: #### P T #### [facility] [address] [address] [address] Tori Mills Cholesterol.total/Margie sterol in HDL [Mass ratio] 3.1 {ratio} Normal [facility] Comment on above: Performed By: #### P T #### [facility] [address] [address] [address] Tori Mills HDL NORMAL > or = 60 mg/dl - LO W CARDIOVASCULAR RISK <40 mg/dl - HIGH CARDIOVASCULAR RISK Normal [facility] Comment on above: Performed By: #### P T #### [facility] [address] [address] [address] Tori Mills LDL CALC NORMAL SEE BELOW Normal [facility] Comment on above: Result Comment: <100 mg/dl OPTIMAL 100 - 129 mg/dl NEAR OR ABOVE OPTIMAL 130 - 159 mg/dl BORDERLINE HIGH 160 - 189 mg/dl HIGH >190 mg/dl VERY HIGH Performed By: #### P T #### [facility] [address] [address] [address] Tori Mills Triglyceride [Mass/Vol] 171 mg/dL Critically high <=150 [facility] Comment on above: Performed By: #### P T #### [facility] [address] [place] [address] Dr. Tori Mills VLDL CALC 34.2 mg/dL Normal [facility] Comment on above: Performed By: #### P T #### [facility] [address] [place] [address] Dr. Tori Mills LIVER PROFILEon 07-02-2022 Albumin [Mass/Vol] 3.8 g/dL Normal 3.4-5.0 [facility] Comment on above: Performed By: #### P T #### [facility] [address] [place] [address] Dr. Tori Mills Albumin/Globulin [Mass ratio] 1.2 {ratio} Normal [facility] Comment on above: Performed By: #### P T #### [facility] [address] [place] [address] Dr. Tori Mills ALP [Catalytic activity/Vol] 64 U/L Normal 46-116 [facility] Comment on above: Performed By: #### P T #### [facility] [address] [place] [address] Dr. Tori Mills ALT [Catalytic activity/Vol] 17 U/L Normal 16-63 [facility] Comment on above: Performed By: #### P T #### [facility] [address] [place] [address] Dr. Tori Mills AST [Catalytic activity/Vol] 14 U/L Critically low 15-37 [facility] Comment on above: Performed By: #### P T #### [facility] [address] [place] [address] Dr. Tori Mills BILI, CONJUGATED 0.1 mg/dL Normal 0.0-0.2 [facility] Comment on above: Performed By: #### P T #### [facility] [address] [place] [address] Dr. Tori Mills Bilirubin [Mass/Vol] 0.3 mg/dL Normal 0.2-1.0 [facility] Comment on above: Performed By: #### P T #### [facility] [address] [place] [address] Dr. Tori Mills Globulin (S) [Mass/Vol] 3.2 g/dL Normal T [facility] Comment on above: Performed By: #### P T #### [facility] [address] [place] [address] Dr. Tori Mills Protein [Mass/Vol] 7.0 g/dL Normal 6.4-8.2 [facility] Comment on above: Performed By: #### P T #### [facility] [address] [place] [address] Dr. Tori Mills MICROALBUMIN, RAND URon mALB 7.0 mg/L Normal <=30.0 [facility] Comment on above: Performed By: #### M ALBR #### [facility] [address] [place] [address] Dr. Tori Mills PROF CHEM 8 (BAS METB)on Anion gap [Moles/Vol] 9.9 mmol/L Normal [facility] Comment on above: Performed By: #### B SAMARIA MORILLO #### [facility] [address] [place] [address] Dr. Tori Mills Calcium [Mass/Vol] 9.3 mg/dL Normal 8.5-10.1 [facility] Comment on above: Performed By: #### B SAMARIA MORILLO #### [facility] [address] [place] [address] Dr. Tori Mills Chloride [Moles/Vol] 104 mmol/L Normal 98-107 [facility] Comment on above: Performed By: #### B SAMARIA MORILLO #### [facility] [address] [place] [address] Dr. Tori Mills CO2 [Moles/Vol] 32.2 mmol/L Critically high 21.0-32.0 [facility] Comment on above: Performed By: #### B SAMARIA MORILLO #### [facility] [address] [place] [address] Dr. Tori Mills Creatinine [Mass/Vol] 0.69 mg/dL Critically low 0.70-1.30 [facility] Comment on above: Performed By: #### B SAMARIA MOIRLLO #### [facility] [address] [place] [address] Dr. Tori Mills EGFR-AF KOSOVAN >60 Normal >=60 [facility] Comment on above: Performed By: #### B SAMARIA MORILLO #### [facility] [address] [address] [address] Tori Mills EGFR-NON AF KOSOVAN >60 Normal >=60 [facility] Comment on above: Performed By: #### B SAMARIA MORILLO #### [facility] [address] [place] [address] Dr. Tori Mills Glucose [Mass/Vol] 136 mg/dL Critically high 74-106 T [facility] Comment on above: Performed By: #### B SAMARIA MORILLO #### [facility] [address] [place] [address] Dr. Tori Mills Potassium [Moles/Vol] 4.1 mmol/L Normal 3.5-5.1 [facility] Comment on above: Performed By: #### B SAMARIA MORILLO #### [facility] [address] [place] [address] Dr. Tori Mills Sodium [Moles/Vol] 142 mmol/L Normal 136-145 [facility] Comment on above: Performed By: #### SAMARIA Jerez MP #### [facility] [address] [place] [address] Dr. Tori Mills Urea nitrogen [Mass/Vol] 7.0 mg/dL Normal 7.0-18.0 [facility] Comment on above: Performed By: #### B SAMARIA MORILLO #### [facility] [address] [place] [address] Dr. Tori Mills Urea nitrogen/Creatinine [Mass ratio] 10.1 mg/mg Normal [facility] Comment on above: Performed By: #### SAMARIA Jerez MP #### [facility] [address] [place] [address] Dr. Tori Mills CARDIAC ALBINO ADMITon 023 CK [Catalytic activity/Vol] 56 U/L Normal 39-308 [facility] Comment on above: Performed By: #### O BSCRN #### [facility] [address] [address] [address] Tori Mills CK.MB [Mass/Vol] 0.69 ng/mL Normal <=3.60 [facility] Comment on above: Performed By: #### O BSCRN #### [facility] [address] [address] [address] Tori Mills HSTROP 8.1 pg/mL Normal 4.0-76.1 [facility] Comment on above: Result Comment: CUT- OFF POINTS HAVE BEEN ESTABLISHED BASED ON THE FOURTH UNIVERSAL DEFINITIONS OF MYOCARDIAL INFARCTION. THE UPPER REFERENCE LIMIT (URL) OF TROPONIN, DEFINED THE 99TH PERCENTILE OF cTnI DISTRIBUTION IN A REFERENCE POPULATION, HAS BEEN CONFIRMED THE DECISION THRESHOLD FOR MS DIAGNOSIS. Performed By: #### O BSCRN #### [facility] [address] [place] [address] Dr. Tori Mills TAMIKO 53 ng/mL Normal 16-96 [facility] Comment on above: Performed By: #### O BSCRN #### [facility] [address] [place] [address] Dr. Tori Mills CBC AUTO DIFFon 06-16-2022 BASO # 0.0 103/ul Normal 0.0-0.1 [facility] Comment on above: Performed By: #### O BSCRN #### [facility] [address] [place] [address] Dr. Tori Mills Basophils/100 WBC (Bld) 0.5 % Normal 0.2-2.0 [facility] Comment on above: Performed By: #### O BSCRN #### [facility] [address] [place] [address] Dr. Tori Mills EO # 0.0 103/ul Normal 0.0-0.7 [facility] Comment on above: Performed By: #### O BSCRN #### [facility] [address] [place] [address] Dr. Tori Mills Eosinophils/100 WBC (Bld) 0.7 % Critically low 0.9-7.0 [facility] Comment on above: Performed By: #### O BSCRN #### [facility] [address] [place] [address] Dr. Tori Mills Erythrocyte distribution width (RBC) [Ratio] 14.8 % Normal 11.0-15.0 [facility] Comment on above: Performed By: #### O BSCRN #### [facility] [address] [place] [address] Dr. Tori Mills Hematocrit (Bld) [Volume fraction] 24.6 % Critically low 42.0-54.0 [facility] Comment on above: Performed By: #### O BSCRN #### [facility] [address] [place] [address] Dr. Tori Mills Hemoglobin (Bld) [Mass/Vol] 8.1 g/dL Critically low 14.0-18.0 [facility] Comment on above: Performed By: #### O BSCRN #### [facility] [address] [place] [address] Dr. Tori Mills IG # 0.02 10e3/ul Normal 0.00-0.03 [facility] Comment on above: Performed By: #### O BSCRN #### [facility] [address] [place] [address] Dr. Tori Mills IG % 0.4 % Normal 0.0-0.5 [facility] Comment on above: Performed By: #### O BSCRN #### [facility] [address] [place] [address] Dr. Tori Mills LYMPH # 1.5 103/ul Normal 1.2-3.8 [facility] Comment on above: Performed By: #### O BSCRN #### [facility] [address] [place] [address] Dr. Tori Mills Lymphocytes/100 WBC (Bld) 26.1 % Normal 20.5-60.0 [facility] Comment on above: Performed By: #### O BSCRN #### [facility] [address] [place] [address] Dr. Tori Mills MANUAL DIFF REQ NO Normal [facility] Comment on above: Performed By: #### O BSCRN #### [facility] [address] [place] [address] Dr. Tori Mills MCH (RBC) [Entitic mass] 30.8 pg Normal 25.9-34.0 [facility] Comment on above: Performed By: #### O BSCRN #### [facility] [address] [place] [address] Dr. Tori Mills MCHC (RBC) [Mass/Vol] 32.9 g/dL Normal 29.9-35.2 [facility] Comment on above: Performed By: #### O BSCRN #### [facility] [address] [place] [address] Dr. Tori Mills MCV (RBC) [Entitic vol] 93.5 fL Normal 80.0-94.0 [facility] Comment on above: Performed By: #### O BSCRN #### [facility] [address] [place] [address] Dr. Tori Mills MONO # 0.6 103/ul Normal 0.3-0.8 [facility] Comment on above: Performed By: #### O BSCRN #### [facility] [address] [place] [address] Dr. Tori Mills Monocytes/100 WBC (Bld) 10.6 % Normal 1.7-12.0 [facility] Comment on above: Performed By: #### O BSCRN #### [facility] [address] [place] [address] Dr. Tori Mills NEUT # 3.4 103/ul Normal 1.4-6.5 [facility] Comment on above: Performed By: #### O BSCRN #### [facility] [address] [place] [address] Dr. Tori Mills Neutrophils/100 WBC (Bld) 61.7 % Normal 43.0-75.0 [facility] Comment on above: Performed By: #### O BSCRN #### [facility] [address] [address] [address] Tori Mills Platelet mean volume (Bld) [Entitic vol] 11.2 fL Normal 9.5-13.5 [facility] Comment on above: Performed By: #### O BSCRN #### [facility] [address] [address] [address] Tori Mills PLT 114 103/ul Critically low 150-450 [facility] Comment on above: Performed By: #### O BSCRN #### [facility] [address] [address] [address] Tori Mills RBC 2.63 106/ul Critically low 4.70-6.10 [facility] Comment on above: Performed By: #### O BSCRN #### [facility] [address] [address] [address] Tori Mills WBC 5.6 103/ul Normal 4.0-11.0 [facility] Comment on above: Performed By: #### O BSCRN #### [facility] [address] [address] [address] Tori Mills BASO # 0.0 103/ul Normal 0.0-0.1 [facility] Comment on above: Performed By: #### B YISEL, CMADM #### [facility] [address] [address] [address] Tori Mills Basophils/100 WBC (Bld) 0.5 % Normal 0.2-2.0 [facility] Comment on above: Performed By: #### B YISEL, CMADM #### [facility] [address] [address] [address] Tori Mills EO # 0.1 103/ul Normal 0.0-0.7 [facility] Comment on above: Performed By: #### B MP, CMADM #### [facility] [address] [address] [address] Tori Mills Eosinophils/100 WBC (Bld) 1.5 % Normal 0.9-7.0 [facility] Comment on above: Performed By: #### B YISEL, WILIDM #### [facility] [address] [place] [address] Dr. Tori Mills Erythrocyte distribution width (RBC) [Ratio] 14.5 % Normal 11.0-15.0 [facility] Comment on above: Performed By: #### B YISEL, CMADM #### [facility] [address] [place] [address] Dr. Tori Mills Hematocrit (Bld) [Volume fraction] 29.4 % Critically low 42.0-54.0 [facility] Comment on above: Performed By: #### B YISEL, WILIDM #### [facility] [address] [place] [address] Dr. Tori Mills Hemoglobin (Bld) [Mass/Vol] 9.7 g/dL Critically low 14.0-18.0 [facility] Comment on above: Performed By: #### B WILI MORILLODM #### [facility] [address] [place] [address] Dr. Tori Mills IG # 0.03 10e3/ul Normal 0.00-0.03 [facility] Comment on above: Performed By: #### B SAMARIA MORILLO #### [facility] [address] [place] [address] Dr. Tori Mills IG % 0.4 % Normal 0.0-0.5 [facility] Comment on above: Performed By: #### B WILI MORILLODM #### [facility] [address] [place] [address] Dr. Tori Mills LYMPH # 2.0 103/ul Normal 1.2-3.8 [facility] Comment on above: Performed By: #### B YISEL, CMADM #### [facility] [address] [place] [address] Dr. Tori Mills Lymphocytes/100 WBC (Bld) 25.5 % Normal 20.5-60.0 [facility] Comment on above: Performed By: #### B YISEL, CMADM #### [facility] [address] [place] [address] Dr. Tori Mills MANUAL DIFF REQ NO Normal [facility] Comment on above: Performed By: #### B YISEL, WILIDM #### [facility] [address] [place] [address] Dr. Tori Mills MCH (RBC) [Entitic mass] 30.5 pg Normal 25.9-34.0 [facility] Comment on above: Performed By: #### B YISEL, CMADM #### [facility] [address] [place] [address] Dr. Tori Mills MCHC (RBC) [Mass/Vol] 33.0 g/dL Normal 29.9-35.2 [facility] Comment on above: Performed By: #### B YISEL, WILIDM #### [facility] [address] [place] [address] Dr. Tori Mills MCV (RBC) [Entitic vol] 92.5 fL Normal 80.0-94.0 [facility] Comment on above: Performed By: #### B WILI MORILLODM #### [facility] [address] [place] [address] Dr. Tori Mills MONO # 0.8 103/ul Normal 0.3-0.8 [facility] Comment on above: Performed By: #### B SAMARIA MORILLO #### [facility] [address] [place] [address] Dr. Tori Mills Monocytes/100 WBC (Bld) 9.9 % Normal 1.7-12.0 [facility] Comment on above: Performed By: #### B YISEL, WILIDM #### [facility] [address] [place] [address] Dr. Tori Mills NEUT # 5.0 103/ul Normal 1.4-6.5 [facility] Comment on above: Performed By: #### B YISEL, WILIDM #### [facility] [address] [place] [address] Dr. Tori Mills Neutrophils/100 WBC (Bld) 62.2 % Normal 43.0-75.0 [facility] Comment on above: Performed By: #### B YISEL, CMADM #### [facility] [address] [address] [address] Tori Mills Platelet mean volume (Bld) [Entitic vol] 11.4 fL Normal 9.5-13.5 [facility] Comment on above: Performed By: #### B YISEL, WILIDM #### [facility] [address] [address] [address] Tori Mills PLT 167 103/ul Normal 150-450 [facility] Comment on above: Performed By: #### B YISEL, WILIDM #### [facility] [address] [address] [address] Tori Mills RBC 3.18 106/ul Critically low 4.70-6.10 [facility] Comment on above: Performed By: #### B YISEL, SAMARIA #### [facility] [address] [place] [address] Dr. Tori Mills WBC 8.0 103/ul Normal 4.0-11.0 [facility] Comment on above: Performed By: #### B YISEL, WILIDM #### [facility] [address] [place] [address] ABD/PELV W CONon [...] FESTUS DELVALLE Date: 2022-06-16 14:18 Normal [facility] Covid-19 PCR ([facility])on 05-31 SARS-CoV-2 (COVID-19) RNA DREA+probe Ql (Unsp spec) Not detected Normal NOT DETECTED [facility] Comment on above: Result Comment: When [...] for this test is supported by the [place] [employer] and Human Service's declaration that [...] used). Performed By: #### M ALBR #### [facility] [address] [place] [address] Dr. Tori Mills HEMOGLOBINon 06-16-2022 Hemoglobin (Bld) [Mass/Vol] 8.3 g/dL Critically low 14.0-18.0 [facility] Comment on above: Performed By: #### P T #### [facility] [address] [place] [address] Dr. Tori Mills HEMOGLOBIN AND HEMATOCRITon 06-16-2022 Hematocrit (Bld) [Volume fraction] 24.1 % Critically low 42.0-54.0 [facility] Comment on above: Performed By: #### M ALBR #### [facility] [address] [place] [address] Dr. Tori Mills Hemoglobin (Bld) [Mass/Vol] 8.0 g/dL Critically low 14.0-18.0 [facility] Comment on above: Performed By: #### M ALBR #### [facility] [address] [place] [address] Dr. Tori Mills LIPID PROFILEon 06-16-2022 CHOL-HDL RATIO NORM SEE BELOW Normal [facility] Comment on above: Result Comment: 3.3 - 4.4 LOW RISK 4.4 - 7.1 AVERAGE RISK 7.1 - 11.0 MODERATE RISK >11.0 HIGH RISK Performed By: #### SAMARIA Jerez MP #### [facility] [address] [place] [address] Dr. Tori Mills Cholesterol [Mass/Vol] 162 mg/dL Normal <=200 [facility] Comment on above: Performed By: #### SAMARIA Jerez MP #### [facility] [address] [place] [address] Dr. Tori Mills Cholesterol in HDL [Mass/Vol] 49 mg/dL Normal 40-60 [facility] Comment on above: Performed By: #### B SAMARIA MORILLO #### [facility] [address] [place] [address] Dr. Tori Mills Cholesterol in LDL [Mass/Vol] 78.4 mg/dL Normal [facility] Comment on above: Performed By: #### B YISEL, SAMARIA #### [facility] [address] [address] [address] Tori Mills Cholesterol.total/Margie sterol in HDL [Mass ratio] 3.3 {ratio} Normal [facility] Comment on above: Performed By: #### B YISEL, WILIDM #### [facility] [address] [address] [address] Tori Mills HDL NORMAL > or = 60 mg/dl - LO W CARDIOVASCULAR RISK <40 mg/dl - HIGH CARDIOVASCULAR RISK Normal [facility] Comment on above: Performed By: #### B SAMARIA MORILLO #### [facility] [address] [address] [address] Tori Mills LDL CALC NORMAL SEE BELOW Normal [facility] Comment on above: Result Comment: <100 mg/dl OPTIMAL 100 - 129 mg/dl NEAR OR ABOVE OPTIMAL 130 - 159 mg/dl BORDERLINE HIGH 160 - 189 mg/dl HIGH >190 mg/dl VERY HIGH Performed By: #### B SAMARIA MORILLO #### [facility] [address] [address] [address] Tori Mills Triglyceride [Mass/Vol] 173 mg/dL Critically high <=150 [facility] Comment on above: Performed By: #### B SAMARIA MORILLO #### [facility] [address] [address] [address] Tori Mills VLDL CALC 34.6 mg/dL Normal [facility] Comment on above: Performed By: #### B SAMARIA MORILLO #### [facility] [address] [address] [address] Tori Mills MAGNESIUMon 06-16-2022 Magnesium [Mass/Vol] 1.4 mg/dL Critically low 1.8-2.4 [facility] Comment on above: Performed By: #### B YISEL, WILIDM #### [facility] [address] [address] [address] Tori Mills POINT OF CARE GLUCOSEon 05-31 Glucose [Mass/Vol] 106 mg/dL Normal 74-106 [facility] Comment on above: Performed By: #### B SAMARIA MORILLO #### [facility] [address] [address] [address] Tori Mills Glucose [Mass/Vol] 99 mg/dL Normal 74-106 [facility] Comment on above: Performed By: #### B SAMARIA MORILLO #### [facility] [address] [address] [address] Tori Mills PROF CHEM 8 (BAS METB)on Anion gap [Moles/Vol] 12.3 mmol/L Normal [facility] Comment on above: Performed By: #### O BSCRN #### [facility] [address] [place] [address] Dr. Tori Mills Calcium [Mass/Vol] 8.8 mg/dL Normal 8.5-10.1 [facility] Comment on above: Performed By: #### O BSCRN #### [facility] [address] [place] [address] Dr. Tori Mills Chloride [Moles/Vol] 101 mmol/L Normal 98-107 [facility] Comment on above: Performed By: #### O BSCRN #### [facility] [address] [place] [address] Dr. Tori Mills CO2 [Moles/Vol] 31.1 mmol/L Normal 21.0-32.0 [facility] Comment on above: Performed By: #### O BSCRN #### [facility] [address] [place] [address] Dr. Tori Mills Creatinine [Mass/Vol] 0.71 mg/dL Normal 0.70-1.30 [facility] Comment on above: Performed By: #### O BSCRN #### [facility] [address] [place] [address] Dr. Tori Mills EGFR-AF KOSOVAN >60 Normal >=60 [facility] Comment on above: Performed By: #### O BSCRN #### [facility] [address] [address] [address] Tori Mills EGFR-NON AF KOSOVAN >60 Normal >=60 [facility] Comment on above: Performed By: #### O BSCRN #### [facility] [address] [address] [address] Tori Mills Glucose [Mass/Vol] 138 mg/dL Critically high 74-106 [facility] Comment on above: Performed By: #### O BSCRN #### [facility] [address] [address] [address] Tori Mills Potassium [Moles/Vol] 3.4 mmol/L Critically low 3.5-5.1 [facility] Comment on above: Performed By: #### O BSCRN #### [facility] [address] [address] [address] Tori Mills Sodium [Moles/Vol] 141 mmol/L Normal 136-145 [facility] Comment on above: Performed By: #### O BSCRN #### [facility] [address] [place] [address] Dr. Tori Mills Urea nitrogen [Mass/Vol] 12.0 mg/dL Normal 7.0-18.0 [facility] Comment on above: Performed By: #### O BSCRN #### [facility] [address] [place] [address] Dr. Tori Mills Urea nitrogen/Creatinine [Mass ratio] 16.9 mg/mg Normal [facility] Comment on above: Performed By: #### O BSCRN #### [facility] [address] [place] [address] Dr. Tori Mills PROTIMEon 06-16-2022 INR Coag (PPP) [Relative time] 1.08 {INR} Normal [facility] Comment on above: Performed By: #### B MP, WILIDM #### [facility] [address] [place] [address] Dr. Tori Mills INR GUIDELINES SEE BELOW Normal [facility] Comment on above: Result Comment: FRANCI RED INR: 2.0 - 3.0 CONDITIONS NOT LISTED BELOW 2.5 - 3.5 FOR PROSTHETIC HEART VALVE REPLACEMENT 2.5 - 3.5 RECURRENT THROMBOSIS Performed By: #### B SAMARIA MORILLO #### [facility] [address] [place] [address] Dr. Tori Mills PT Coag (PPP) [Time] 11.4 s Normal 9.0-11.6 [facility] Comment on above: Performed By: #### B SAMARIA MORILLO #### [facility] [address] [place] [address] Dr. Tori Mills TSHon 06-16-2022 TSH 2.263 uIU/mL Normal 0.358-3.740 [facility] Comment on above: Performed By: #### B SAMARIA MORILLO #### [facility] [address] [place] [address] Dr. Tori Mills PRBC LEUKOREDUCEDon 06-15-19 23 ABO and Rh group Nom (Bld) Cross Match Result Compatible Unit Blood Type O Pos Unit Number [id number] Status Information Transfused Product ID Red Blood Cells Product Code [id number] Cross Match Result Compatible Unit Blood Type O Pos Unit Number [id number] Status Information Transfused Product ID Red Blood Cells Product Code [id number] Normal [facility] Comment on above: Performed By: #### M ALBR #### [facility] [address] [place] [address] Dr. Tori Mills CBC AUTO DIFFon 06-14-2022 BASO # 0.0 103/ul Normal 0.0-0.1 [facility] Comment on above: Performed By: #### M ALBR #### [facility] [address] [place] [address] Dr. Tori Mills Basophils/100 WBC (Bld) 0.6 % Normal 0.2-2.0 [facility] Comment on above: Performed By: #### M ALBR #### [facility] [address] [place] [address] Dr. Tori Mills EO # 0.2 103/ul Normal 0.0-0.7 [facility] Comment on above: Performed By: #### M ALBR #### [facility] [address] [place] [address] Dr. Tori Mills Eosinophils/100 WBC (Bld) 2.5 % Normal 0.9-7.0 [facility] Comment on above: Performed By: #### M ALBR #### [facility] [address] [place] [address] Dr. Tori Mills Erythrocyte distribution width (RBC) [Ratio] 14.6 % Normal 11.0-15.0 [facility] Comment on above: Performed By: #### M ALBR #### [facility] [address] [place] [address] Dr. Tori Mills Hematocrit (Bld) [Volume fraction] 26.7 % Critically low 42.0-54.0 [facility] Comment on above: Performed By: #### M ALBR #### [facility] [address] [place] [address] Dr. Tori Mills Hemoglobin (Bld) [Mass/Vol] 8.5 g/dL Critically low 14.0-18.0 [facility] Comment on above: Performed By: #### M ALBR #### [facility] [address] [place] [address] Dr. Troi Mills IG # 0.02 10e3/ul Normal 0.00-0.03 [facility] Comment on above: Performed By: #### M ALBR #### [facility] [address] [place] [address] Dr. Tori Mills IG % 0.3 % Normal 0.0-0.5 [facility] Comment on above: Performed By: #### M ALBR #### [facility] [address] [place] [address] Dr. Tori Mills LYMPH # 1.7 103/ul Normal 1.2-3.8 [facility] Comment on above: Performed By: #### M ALBR #### [facility] [address] [place] [address] Dr. Tori Mills Lymphocytes/100 WBC (Bld) 27.2 % Normal 20.5-60.0 [facility] Comment on above: Performed By: #### M ALBR #### [facility] [address] [address] [address] Tori Mills MANUAL DIFF REQ NO Normal [facility] Comment on above: Performed By: #### M ALBR #### [facility] [address] [address] [address] Tori Mills MCH (RBC) [Entitic mass] 29.2 pg Normal 25.9-34.0 [facility] Comment on above: Performed By: #### M ALBR #### [facility] [address] [place] [address] Dr. Tori Mills MCHC (RBC) [Mass/Vol] 31.8 g/dL Normal 29.9-35.2 [facility] Comment on above: Performed By: #### M ALBR #### [facility] [address] [place] [address] Dr. Tori Mills MCV (RBC) [Entitic vol] 91.8 fL Normal 80.0-94.0 [facility] Comment on above: Performed By: #### M ALBR #### [facility] [address] [place] [address] Dr. Tori Mills MONO # 0.7 103/ul Normal 0.3-0.8 [facility] Comment on above: Performed By: #### M ALBR #### [facility] [address] [place] [address] Dr. Tori Mills Monocytes/100 WBC (Bld) 10.8 % Normal 1.7-12.0 [facility] Comment on above: Performed By: #### M ALBR #### [facility] [address] [place] [address] Dr. Tori Mills NEUT # 3.7 103/ul Normal 1.4-6.5 [facility] Comment on above: Performed By: #### M ALBR #### [facility] [address] [place] [address] Dr. Tori Mills Neutrophils/100 WBC (Bld) 58.6 % Normal 43.0-75.0 [facility] Comment on above: Performed By: #### M ALBR #### [facility] [address] [address] [address] Tori Mills Platelet mean volume (Bld) [Entitic vol] 11.1 fL Normal 9.5-13.5 [facility] Comment on above: Performed By: #### M ALBR #### [facility] [address] [address] [address] Tori Mills PLT 148 103/ul Critically low 150-450 [facility] Comment on above: Performed By: #### M ALBR #### [facility] [address] [address] [address] Tori Mills RBC 2.91 106/ul Critically low 4.70-6.10 [facility] Comment on above: Performed By: #### M ALBR #### [facility] [address] [place] [address] Dr. Tori Mills WBC 6.4 103/ul Normal 4.0-11.0 [facility] Comment on above: Performed By: #### M ALBR #### [facility] [address] [place] [address] Dr. Tori Mills PROF 14(COMP METB)on 023 Albumin [Mass/Vol] 2.7 g/dL Critically low 3.4-5.0 [facility] Comment on above: Performed By: #### O BSCRN #### [facility] [address] [place] [address] Dr. Tori Mills Albumin/Globulin [Mass ratio] 1.1 {ratio} Normal [facility] Comment on above: Performed By: #### O BSCRN #### [facility] [address] [place] [address] Dr. Tori Mills ALP [Catalytic activity/Vol] 62 U/L Normal 46-116 [facility] Comment on above: Performed By: #### O BSCRN #### [facility] [address] [place] [address] Dr. Tori Mills ALT [Catalytic activity/Vol] 12 U/L Critically low 16-63 [facility] Comment on above: Performed By: #### O BSCRN #### [facility] [address] [address] [address] Tori Mills Anion gap [Moles/Vol] 8.5 mmol/L Normal [facility] Comment on above: Performed By: #### O BSCRN #### [facility] [address] [address] [address] Tori Mills AST [Catalytic activity/Vol] 13 U/L Critically low 15-37 [facility] Comment on above: Performed By: #### O BSCRN #### [facility] [address] [address] [address] Tori Mills Bilirubin [Mass/Vol] 0.3 mg/dL Normal 0.2-1.0 [facility] Comment on above: Performed By: #### O BSCRN #### [facility] [address] [place] [address] Dr. Tori Mills Calcium [Mass/Vol] 8.4 mg/dL Critically low 8.5-10.1 [facility] Comment on above: Performed By: #### O BSCRN #### [facility] [address] [place] [address] Dr. Tori Mills Chloride [Moles/Vol] 107 mmol/L Normal 98-107 [facility] Comment on above: Performed By: #### O BSCRN #### [facility] [address] [place] [address] Dr. Tori Mills CO2 [Moles/Vol] 30.0 mmol/L Normal 21.0-32.0 [facility] Comment on above: Performed By: #### O BSCRN #### [facility] [address] [place] [address] Dr. Tori Mills Creatinine [Mass/Vol] 0.67 mg/dL Critically low 0.70-1.30 [facility] Comment on above: Performed By: #### O BSCRN #### [facility] [address] [place] [address] Dr. Tori Mills EGFR-AF KOSOVAN >60 Normal >=60 [facility] Comment on above: Performed By: #### O BSCRN #### [facility] [address] [address] [address] Tori Mills EGFR-NON AF KOSOVAN >60 Normal >=60 [facility] Comment on above: Performed By: #### O BSCRN #### [facility] [address] [address] [address] Tori Mills Globulin (S) [Mass/Vol] 2.5 g/dL Normal [facility] Comment on above: Performed By: #### O BSCRN #### [facility] [address] [address] [address] Tori Mills Glucose [Mass/Vol] 98 mg/dL Normal 74-106 [facility] Comment on above: Performed By: #### O BSCRN #### [facility] [address] [address] [address] Tori Mills Potassium [Moles/Vol] 3.5 mmol/L Normal 3.5-5.1 [facility] Comment on above: Performed By: #### O BSCRN #### [facility] [address] [address] [address] Tori Mills Protein [Mass/Vol] 5.2 g/dL Critically low 6.4-8.2 [facility] Comment on above: Performed By: #### O BSCRN #### [facility] [address] [address] [address] Tori Mills Sodium [Moles/Vol] 142 mmol/L Normal 136-145 [facility] Comment on above: Performed By: #### O BSCRN #### [facility] [address] [address] [address] Tori Mills Urea nitrogen [Mass/Vol] 11.0 mg/dL Normal 7.0-18.0 [facility] Comment on above: Performed By: #### O BSCRN #### [facility] [address] [address] [address] Tori Mills Urea nitrogen/Creatinine [Mass ratio] 16.4 mg/mg Normal [facility] Comment on above: Performed By: #### O BSCRN #### [facility] [address] [place] [address] Dr. Tori Mills PROTIMEon 06-14-2022 INR Coag (PPP) [Relative time] 1.15 {INR} Normal [facility] Comment on above: Performed By: #### O BSCRN #### [facility] [address] [place] [address] Dr. Tori Mills INR GUIDELINES SEE BELOW Normal [facility] Comment on above: Result Comment: FRANCI RED INR: 2.0 - 3.0 CONDITIONS NOT LISTED BELOW 2.5 - 3.5 FOR PROSTHETIC HEART VALVE REPLACEMENT 2.5 - 3.5 RECURRENT THROMBOSIS Performed By: #### O BSCRN #### [facility] [address] [place] [address] Dr. Tori Mills PT Coag (PPP) [Time] 12.1 s Critically high 9.0-11.6 [facility] Comment on above: Performed By: #### O BSCRN #### [facility] [address] [place] [address] Dr. Tori Mills CBC AUTO DIFFon 06-13-2022 BASO # 0.0 103/ul Normal 0.0-0.1 [facility] Comment on above: Performed By: #### P T #### [facility] [address] [place] [address] Dr. Tori Mills Basophils/100 WBC (Bld) 0.4 % Normal 0.2-2.0 [facility] Comment on above: Performed By: #### P T #### [facility] [address] [place] [address] Dr. Tori Mills EO # 0.1 103/ul Normal 0.0-0.7 [facility] Comment on above: Performed By: #### P T #### [facility] [address] [place] [address] Dr. Tori Mills Eosinophils/100 WBC (Bld) 1.2 % Normal 0.9-7.0 [facility] Comment on above: Performed By: #### P T #### [facility] [address] [place] [address] Dr. Tori Mills Erythrocyte distribution width (RBC) [Ratio] 15.1 % Critically high 11.0-15.0 [facility] Comment on above: Performed By: #### P T #### [facility] [address] [place] [address] Dr. Tori Mills Hematocrit (Bld) [Volume fraction] 26.0 % Critically low 42.0-54.0 [facility] Comment on above: Performed By: #### P T #### [facility] [address] [place] [address] Dr. Tori Mills Hemoglobin (Bld) [Mass/Vol] 8.9 g/dL Critically low 14.0-18.0 [facility] Comment on above: Performed By: #### P T #### [facility] [address] [place] [address] Dr. Tori Mills IG # 0.03 10e3/ul Normal 0.00-0.03 [facility] Comment on above: Performed By: #### P T #### [facility] [address] [place] [address] Dr. Tori Mills IG % 0.4 % Normal 0.0-0.5 [facility] Comment on above: Performed By: #### P T #### [facility] [address] [place] [address] Dr. Tori Mills LYMPH # 2.1 103/ul Normal 1.2-3.8 [facility] Comment on above: Performed By: #### P T #### [facility] [address] [place] [address] Dr. Tori Mills Lymphocytes/100 WBC (Bld) 28.9 % Normal 20.5-60.0 [facility] Comment on above: Performed By: #### P T #### [facility] [address] [place] [address] Dr. Tori Mills MANUAL DIFF REQ NO Normal [facility] Comment on above: Performed By: #### P T #### [facility] [address] [place] [address] Dr. Tori Mills MCH (RBC) [Entitic mass] 30.4 pg Normal 25.9-34.0 [facility] Comment on above: Performed By: #### P T #### [facility] [address] [place] [address] Dr. Tori Mills MCHC (RBC) [Mass/Vol] 34.2 g/dL Normal 29.9-35.2 [facility] Comment on above: Performed By: #### P T #### [facility] [address] [place] [address] Dr. Tori Mills MCV (RBC) [Entitic vol] 88.7 fL Normal 80.0-94.0 [facility] Comment on above: Performed By: #### P T #### [facility] [address] [place] [address] Dr. Tori Mills MONO # 0.8 103/ul Normal 0.3-0.8 [facility] Comment on above: Performed By: #### P T #### [facility] [address] [place] [address] Dr. Tori Mills Monocytes/100 WBC (Bld) 10.4 % Normal 1.7-12.0 [facility] Comment on above: Performed By: #### P T #### [facility] [address] [place] [address] Dr. Tori Mills NEUT # 4.3 103/ul Normal 1.4-6.5 [facility] Comment on above: Performed By: #### P T #### [facility] [address] [place] [address] Dr. Tori Mills Neutrophils/100 WBC (Bld) 58.7 % Normal 43.0-75.0 [facility] Comment on above: Performed By: #### P T #### [facility] [address] [place] [address] Dr. Tori Mills Platelet mean volume (Bld) [Entitic vol] 10.9 fL Normal 9.5-13.5 [facility] Comment on above: Performed By: #### P T #### [facility] [address] [place] [address] Dr. Tori Mills PLT 135 103/ul Critically low 150-450 [facility] Comment on above: Performed By: #### P T #### [facility] [address] [place] [address] Dr. Tori Mills RBC 2.93 106/ul Critically low 4.70-6.10 [facility] Comment on above: Performed By: #### P T #### [facility] [address] [place] [address] Dr. Tori Mills WBC 7.3 103/ul Normal 4.0-11.0 [facility] Comment on above: Performed By: #### P T #### [facility] [address] [place] [address] Dr. Tori Mills PROF 14(COMP METB)on 023 Albumin [Mass/Vol] 2.8 g/dL Critically low 3.4-5.0 [facility] Comment on above: Performed By: #### B SAMARIA MORILLO #### [facility] [address] [place] [address] Dr. Tori Mills Albumin/Globulin [Mass ratio] 1.1 {ratio} Normal [facility] Comment on above: Performed By: #### B SAMARIA MORILLO #### [facility] [address] [place] [address] Dr. Tori Mills ALP [Catalytic activity/Vol] 47 U/L Normal 46-116 [facility] Comment on above: Performed By: #### B SAMARIA MORILLO #### [facility] [address] [place] [address] Dr. Tori Mills ALT [Catalytic activity/Vol] 14 U/L Critically low 16-63 [facility] Comment on above: Performed By: #### B SAMARIA MORILLO #### [facility] [address] [place] [address] Dr. Tori Mills Anion gap [Moles/Vol] 9.0 mmol/L Normal [facility] Comment on above: Performed By: #### B SAMARIA MORILLO #### [facility] [address] [place] [address] Dr. Tori Mills AST [Catalytic activity/Vol] 15 U/L Normal 15-37 [facility] Comment on above: Performed By: #### B YISEL, WILIDM #### [facility] [address] [place] [address] Dr. Tori Mills Bilirubin [Mass/Vol] 0.6 mg/dL Normal 0.2-1.0 [facility] Comment on above: Performed By: #### B YISEL, WILIDM #### [facility] [address] [place] [address] Dr. Tori Mills Calcium [Mass/Vol] 8.4 mg/dL Critically low 8.5-10.1 [facility] Comment on above: Performed By: #### B YISEL, WILIDM #### [facility] [address] [place] [address] Dr. Tori Mills Chloride [Moles/Vol] 107 mmol/L Normal 98-107 [facility] Comment on above: Performed By: #### B YISEL, CMADM #### [facility] [address] [place] [address] Dr. Tori Mills CO2 [Moles/Vol] 30.3 mmol/L Normal 21.0-32.0 [facility] Comment on above: Performed By: #### B YISEL, WILIDM #### [facility] [address] [place] [address] Dr. Tori Mills Creatinine [Mass/Vol] 0.52 mg/dL Critically low 0.70-1.30 [facility] Comment on above: Performed By: #### B WILI MORILLODM #### [facility] [address] [place] [address] Dr. Tori Mills EGFR-AF KOSOVAN >60 Normal >=60 [facility] Comment on above: Performed By: #### B YISEL, WILIDM #### [facility] [address] [place] [address] Dr. Tori Mills EGFR-NON AF KOSOVAN >60 Normal >=60 [facility] Comment on above: Performed By: #### B YISEL, SAMARIA #### [facility] [address] [place] [address] Dr. Tori Mills Globulin (S) [Mass/Vol] 2.5 g/dL Normal [facility] Comment on above: Performed By: #### B YISEL, SAMARIA #### [facility] [address] [place] [address] Dr. Tori Mills Glucose [Mass/Vol] 88 mg/dL Normal 74-106 [facility] Comment on above: Performed By: #### B YISEL, SAMARIA #### [facility] [address] [address] [address] Tori Mills Potassium [Moles/Vol] 3.3 mmol/L Critically low 3.5-5.1 [facility] Comment on above: Performed By: #### B SAMARIA MORILLO #### [facility] [address] [place] [address] Dr. Tori Mills Protein [Mass/Vol] 5.3 g/dL Critically low 6.4-8.2 [facility] Comment on above: Performed By: #### B SAMARIA MORILLO #### [facility] [address] [place] [address] Dr. Tori Mills Sodium [Moles/Vol] 143 mmol/L Normal 136-145 [facility] Comment on above: Performed By: #### B SAMARIA MORILLO #### [facility] [address] [place] [address] Dr. Tori Mills Urea nitrogen [Mass/Vol] 6.0 mg/dL Critically low 7.0-18.0 [facility] Comment on above: Performed By: #### B SAMARIA MORILLO #### [facility] [address] [place] [address] Dr. Tori Mills Urea nitrogen/Creatinine [Mass ratio] 11.5 mg/mg Normal [facility] Comment on above: Performed By: #### B SAMARIA MORILLO #### [facility] [address] [place] [address] Dr. Tori Mills PROTIMEon 06-13-2022 INR Coag (PPP) [Relative time] 1.39 {INR} Normal [facility] Comment on above: Performed By: #### P T #### [facility] [address] [place] [address] Dr. Tori Mills INR GUIDELINES SEE BELOW Normal [facility] Comment on above: Result Comment: FRANCI RED INR: 2.0 - 3.0 CONDITIONS NOT LISTED BELOW 2.5 - 3.5 FOR PROSTHETIC HEART VALVE REPLACEMENT 2.5 - 3.5 RECURRENT THROMBOSIS Performed By: #### P T #### [facility] [address] [place] [address] Dr. Tori Mills PT Coag (PPP) [Time] 14.5 s Critically high 9.0-11.6 [facility] Comment on above: Performed By: #### P T #### [facility] [address] [place] [address] Dr. Tori Mills ABO RH RETYPEon 06-12-2022 ABO and Rh group Nom (Bld) DONE Normal [facility] Comment on above: Performed By: #### O BSCRN #### [facility] [address] [place] [address] Dr. Tori Mills CARDIAC ALBINO 3-6on 3 CK [Catalytic activity/Vol] 33 U/L Critically low 39-308 [facility] Comment on above: Performed By: #### O BSCRN #### [facility] [address] [place] [address] Dr. Tori Mills CK.MB [Mass/Vol] 0.41 ng/mL Normal <=3.60 [facility] Comment on above: Performed By: #### O BSCRN #### [facility] [address] [place] [address] Dr. Tori Mills HSTROP 5.2 pg/mL Normal 4.0-76.1 [facility] Comment on above: Result Comment: CUT- OFF POINTS HAVE BEEN ESTABLISHED BASED ON THE FOURTH UNIVERSAL DEFINITIONS OF MYOCARDIAL INFARCTION. THE UPPER REFERENCE LIMIT (URL) OF TROPONIN, DEFINED THE 99TH PERCENTILE OF cTnI DISTRIBUTION IN A REFERENCE POPULATION, HAS BEEN CONFIRMED THE DECISION THRESHOLD FOR MS DIAGNOSIS. Performed By: #### O BSCRN #### [facility] [address] [place] [address] Dr. Tori Mills CBC AUTO DIFFon 06-12-2022 BASO # 0.0 103/ul Normal 0.0-0.1 [facility] Comment on above: Performed By: #### M ALBR #### [facility] [address] [address] [address] Tori Mills Basophils/100 WBC (Bld) 0.6 % Normal 0.2-2.0 [facility] Comment on above: Performed By: #### M ALBR #### [facility] [address] [address] [address] Tori Mills EO # 0.1 103/ul Normal 0.0-0.7 [facility] Comment on above: Performed By: #### M ALBR #### [facility] [address] [place] [address] Dr. Tori Mills Eosinophils/100 WBC (Bld) 1.0 % Normal 0.9-7.0 [facility] Comment on above: Performed By: #### M ALBR #### [facility] [address] [place] [address] Dr. Tori Mills Erythrocyte distribution width (RBC) [Ratio] 14.9 % Normal 11.0-15.0 [facility] Comment on above: Performed By: #### M ALBR #### [facility] [address] [place] [address] Dr. Tori Mills Hematocrit (Bld) [Volume fraction] 30.0 % Critically low 42.0-54.0 [facility] Comment on above: Performed By: #### M ALBR #### [facility] [address] [place] [address] Dr. Tori Mills Hemoglobin (Bld) [Mass/Vol] 10.1 g/dL Critically low 14.0-18.0 [facility] Comment on above: Performed By: #### M ALBR #### [facility] [address] [place] [address] Dr. Tori Mills IG # 0.03 10e3/ul Normal 0.00-0.03 [facility] Comment on above: Performed By: #### M ALBR #### [facility] [address] [address] [address] Tori Mills IG % 0.4 % Normal 0.0-0.5 [facility] Comment on above: Performed By: #### M ALBR #### [facility] [address] [place] [address] Dr. Tori Mills LYMPH # 2.2 103/ul Normal 1.2-3.8 [facility] Comment on above: Performed By: #### M ALBR #### [facility] [address] [place] [address] Dr. Tori Mills Lymphocytes/100 WBC (Bld) 32.4 % Normal 20.5-60.0 [facility] Comment on above: Performed By: #### M ALBR #### [facility] [address] [place] [address] Dr. Tori Mills MANUAL DIFF REQ NO Normal [facility] Comment on above: Performed By: #### M ALBR #### [facility] [address] [place] [address] Dr. Tori Mills MCH (RBC) [Entitic mass] 30.3 pg Normal 25.9-34.0 [facility] Comment on above: Performed By: #### M ALBR #### [facility] [address] [place] [address] Dr. Tori Mills MCHC (RBC) [Mass/Vol] 33.7 g/dL Normal 29.9-35.2 [facility] Comment on above: Performed By: #### M ALBR #### [facility] [address] [place] [address] Dr. Tori Mills MCV (RBC) [Entitic vol] 90.1 fL Normal 80.0-94.0 [facility] Comment on above: Performed By: #### M ALBR #### [facility] [address] [place] [address] Dr. Tori Mills MONO # 0.7 103/ul Normal 0.3-0.8 [facility] Comment on above: Performed By: #### M ALBR #### [facility] [address] [address] [address] Tori Mills Monocytes/100 WBC (Bld) 10.4 % Normal 1.7-12.0 [facility] Comment on above: Performed By: #### M ALBR #### [facility] [address] [place] [address] Dr. Tori Mills NEUT # 3.7 103/ul Normal 1.4-6.5 [facility] Comment on above: Performed By: #### M ALBR #### [facility] [address] [place] [address] Dr. Tori Mills Neutrophils/100 WBC (Bld) 55.2 % Normal 43.0-75.0 [facility] Comment on above: Performed By: #### M ALBR #### [facility] [address] [place] [address] Dr. Tori Mills Platelet mean volume (Bld) [Entitic vol] 10.8 fL Normal 9.5-13.5 [facility] Comment on above: Performed By: #### M ALBR #### [facility] [address] [place] [address] Dr. Tori Mills PLT 144 103/ul Critically low 150-450 [facility] Comment on above: Performed By: #### M ALBR #### [facility] [address] [place] [address] Dr. Tori Mills RBC 3.33 106/ul Critically low 4.70-6.10 [facility] Comment on above: Performed By: #### M ALBR #### [facility] [address] [place] [address] Dr. Tori Mills WBC 6.8 103/ul Normal 4.0-11.0 [facility] Comment on above: Performed By: #### M ALBR #### [facility] [address] [place] [address] Dr. Tori Mills BASO # 0.0 103/ul Normal 0.0-0.1 [facility] Comment on above: Performed By: #### C BC #### [facility] [address] [place] [address] Dr. Tori Mills Basophils/100 WBC (Bld) 0.4 % Normal 0.2-2.0 [facility] Comment on above: Performed By: #### C BC #### [facility] [address] [place] [address] Dr. Tori Mills EO # 0.1 103/ul Normal 0.0-0.7 [facility] Comment on above: Performed By: #### C BC #### [facility] [address] [place] [address] Dr. Tori Mills Eosinophils/100 WBC (Bld) 1.1 % Normal 0.9-7.0 [facility] Comment on above: Performed By: #### C BC #### [facility] [address] [place] [address] Dr. Tori Mills Erythrocyte distribution width (RBC) [Ratio] 14.6 % Normal 11.0-15.0 [facility] Comment on above: Performed By: #### C BC #### [facility] [address] [place] [address] Dr. Tori iMlls Hematocrit (Bld) [Volume fraction] 26.2 % Critically low 42.0-54.0 [facility] Comment on above: Performed By: #### C BC #### [facility] [address] [place] [address] Dr. Tori Mills Hemoglobin (Bld) [Mass/Vol] 8.0 g/dL Critically low 14.0-18.0 [facility] Comment on above: Performed By: #### C BC #### [facility] [address] [place] [address] Dr. Tori Mills IG # 0.02 10e3/ul Normal 0.00-0.03 [facility] Comment on above: Performed By: #### C BC #### [facility] [address] [place] [address] Dr. Tori Mills IG % 0.3 % Normal 0.0-0.5 [facility] Comment on above: Performed By: #### C BC #### [facility] [address] [place] [address] Dr. Tori Mills LYMPH # 2.0 103/ul Normal 1.2-3.8 [facility] Comment on above: Performed By: #### C BC #### [facility] [address] [place] [address] Dr. Tori Mills Lymphocytes/100 WBC (Bld) 28.2 % Normal 20.5-60.0 [facility] Comment on above: Performed By: #### C BC #### [facility] [address] [place] [address] Dr. Tori Mills MANUAL DIFF REQ NO Normal [facility] Comment on above: Performed By: #### C BC #### [facility] [address] [place] [address] Dr. Tori Mills MCH (RBC) [Entitic mass] 30.5 pg Normal 25.9-34.0 [facility] Comment on above: Performed By: #### C BC #### [facility] [address] [place] [address] Dr. Tori Mills MCHC (RBC) [Mass/Vol] 30.5 g/dL Normal 29.9-35.2 [facility] Comment on above: Performed By: #### C BC #### [facility] [address] [place] [address] Dr. Tori Mills MCV (RBC) [Entitic vol] 100.0 fL Critically high 80.0-94 .0 [facility] Comment on above: Performed By: #### C BC #### [facility] [address] [place] [address] Dr. Tori Mills MONO # 0.8 103/ul Normal 0.3-0.8 [facility] Comment on above: Performed By: #### C BC #### [facility] [address] [place] [address] Dr. Tori Mills Monocytes/100 WBC (Bld) 10.8 % Normal 1.7-12.0 [facility] Comment on above: Performed By: #### C BC #### [facility] [address] [place] [address] Dr. Tori Mills NEUT # 4.2 103/ul Normal 1.4-6.5 [facility] Comment on above: Performed By: #### C BC #### [facility] [address] [place] [address] Dr. Tori Mills Neutrophils/100 WBC (Bld) 59.2 % Normal 43.0-75.0 [facility] Comment on above: Performed By: #### C BC #### [facility] [address] [place] [address] Dr. Tori Mills Platelet mean volume (Bld) [Entitic vol] 11.3 fL Normal 9.5-13.5 [facility] Comment on above: Performed By: #### C BC #### [facility] [address] [place] [address] Dr. Tori Mills PLT 140 103/ul Critically low 150-450 [facility] Comment on above: Performed By: #### C BC #### [facility] [address] [place] [address] Dr. Tori Mills RBC 2.62 106/ul Critically low 4.70-6.10 [facility] Comment on above: Performed By: #### C BC #### [facility] [address] [place] [address] Dr. Tori Mills WBC 7.0 103/ul Normal 4.0-11.0 [facility] Comment on above: Performed By: #### C BC #### [facility] [address] [place] [address] Dr. Tori Mills Covid-19 PCR ([facility]on 05-31 SARS-CoV-2 (COVID-19) RNA DREA+probe Ql (Unsp spec) Not detected Normal NOT DETECTED [facility] Comment on above: Result Comment: When [...] for this test is supported by the [place] [employer] and Human Service's declaration that [...] be used). Performed By: #### B , CMA #### [facility] [address] [address] [address] 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 Admission #: [id number] Family : DR PABLO ABREU . Order #: [id number] CLICK HERE TO VIEW EXAM ECHOCARDIOGRAM REPORT PROCEDURE: CARDIO PULMONARY ECHOCARDIO M/2D COMP INDICATIONS: Syncope, h/o MS, CVA, diabetes COMPARISON: None. DESCRIPTION: COMPLETE ECHOCARDIOGRAM [...] M.D. on 06/17/2022 at 08:59 Normal [facility] OCC BLD IMMUNO SCREENon 05-31 OCCULT BLOOD Positive Abnormal NEGATIVE [facility] Comment on above: Performed By: #### O BSCRN #### [facility] [address] [place] [address] Dr. Tori Mills PROF 14(COMP METB)on 023 Albumin [Mass/Vol] 2.9 g/dL Critically low 3.4-5.0 [facility] Comment on above: Performed By: #### B MP, CMADM #### [facility] [address] [address] [address] Tori Mills Albumin/Globulin [Mass ratio] 1.2 {ratio} Normal [facility] Comment on above: Performed By: #### B MP, CMADM #### [facility] [address] [address] [address] Tori Mills ALP [Catalytic activity/Vol] 50 U/L Normal 46-116 [facility] Comment on above: Performed By: #### B YISEL, CMADM #### [facility] [address] [address] [address] Tori Mills ALT [Catalytic activity/Vol] 18 U/L Normal 16-63 [facility] Comment on above: Performed By: #### B YISEL, CMADM #### [facility] [address] [address] [address] Tori Mills Anion gap [Moles/Vol] 8.4 mmol/L Normal [facility] Comment on above: Performed By: #### B YISEL, CMADM #### [facility] [address] [address] [address] Tori Mills AST [Catalytic activity/Vol] 16 U/L Normal 15-37 [facility] Comment on above: Performed By: #### B YISEL, CMADM #### [facility] [address] [address] [address] Tori Mills Bilirubin [Mass/Vol] 0.5 mg/dL Normal 0.2-1.0 [facility] Comment on above: Performed By: #### B MP, CMADM #### [facility] [address] [address] [address] Tori Mills Calcium [Mass/Vol] 8.2 mg/dL Critically low 8.5-10.1 [facility] Comment on above: Performed By: #### B MP, CMADM #### [facility] [address] [address] [address] Tori Mills Chloride [Moles/Vol] 109 mmol/L Critically high 98-107 [facility] Comment on above: Performed By: #### B YISEL, CMADM #### [facility] [address] [address] [address] Tori Mills CO2 [Moles/Vol] 30.3 mmol/L Normal 21.0-32.0 [facility] Comment on above: Performed By: #### B YISEL, CMADM #### [facility] [address] [address] [address] Tori Mills Creatinine [Mass/Vol] 0.62 mg/dL Critically low 0.70-1.30 [facility] Comment on above: Performed By: #### B IYSEL, CMADM #### [facility] [address] [place] [address] Dr. Tori Mills EGFR-AF KOSOVAN >60 Normal >=60 [facility] Comment on above: Performed By: #### B YISEL, CMADM #### [facility] [address] [address] [address] Tori Mills EGFR-NON AF KOSOVAN >60 Normal >=60 [facility] Comment on above: Performed By: #### B YISEL, CMADM #### [facility] [address] [place] [address] Dr. Tori Mills Globulin (S) [Mass/Vol] 2.5 g/dL Normal [facility] Comment on above: Performed By: #### B YISEL, CMADM #### [facility] [address] [address] [address] Tori Mills Glucose [Mass/Vol] 106 mg/dL Normal 74-106 [facility] Comment on above: Performed By: #### B YISEL, CMADM #### [facility] [address] [address] [address] Tori Mills Potassium [Moles/Vol] 3.7 mmol/L Normal 3.5-5.1 [facility] Comment on above: Performed By: #### B YISEL, CMADM #### [facility] [address] [address] [address] Tori Mills Protein [Mass/Vol] 5.4 g/dL Critically low 6.4-8.2 [facility] Comment on above: Performed By: #### B YISEL, SAMARIA #### [facility] [address] [place] [address] Dr. Tori Mills Sodium [Moles/Vol] 144 mmol/L Normal 136-145 [facility] Comment on above: Performed By: #### B YISEL, SAMARIA #### [facility] [address] [place] [address] Dr. Tori Mills Urea nitrogen [Mass/Vol] 13.0 mg/dL Normal 7.0-18.0 [facility] Comment on above: Performed By: #### B SAMARIA MORILLO #### [facility] [address] [place] [address] Dr. Tori Mills Urea nitrogen/Creatinine [Mass ratio] 21.0 mg/mg Normal [facility] Comment on above: Performed By: #### B SAMARIA MORILLO #### [facility] [address] [place] [address] Dr. Tori Mills PROTIMEon 06-12-2022 INR Coag (PPP) [Relative time] 2.35 {INR} Normal [facility] Comment on above: Performed By: #### P T #### [facility] [address] [place] [address] Dr. Tori Mills INR GUIDELINES SEE BELOW Normal [facility] Comment on above: Result Comment: FRANCI RED INR: 2.0 - 3.0 CONDITIONS NOT LISTED BELOW 2.5 - 3.5 FOR PROSTHETIC HEART VALVE REPLACEMENT 2.5 - 3.5 RECURRENT THROMBOSIS Performed By: #### P T #### [facility] [address] [place] [address] Dr. Tori Mills PT Coag (PPP) [Time] 23.7 s Critically high 9.0-11.6 [facility] Comment on above: Performed By: #### P T #### [facility] [address] [place] [address] Dr. Tori Mills TYPE AND SCREENon 06-12-2022 TYPE AND SCREEN Negative Normal [facility] Comment on above: Performed By: #### M ALBR #### [facility] [address] [place] [address] Dr. Tori Mills CAROTID ART BILon 023 US CAROTID ART [...] KATIA ORDONEZ Date: 2022-06-12 09:32 Normal [facility] CARDIAC ALBINO ADMITon 023 CK [Catalytic activity/Vol] 34 U/L Critically low 39-308 [facility] Comment on above: Performed By: #### B YISEL, WILIDM #### [facility] [address] [place] [address] Dr. Tori Mills CK.MB [Mass/Vol] 0.33 ng/mL Normal <=3.60 [facility] Comment on above: Performed By: #### B YISEL, WILIDM #### [facility] [address] [address] [address] Tori Mills HSTROP 5.4 pg/mL Normal 4.0-76.1 [facility] Comment on above: Result Comment: CUT- OFF POINTS HAVE BEEN ESTABLISHED BASED ON THE FOURTH UNIVERSAL DEFINITIONS OF MYOCARDIAL INFARCTION. THE UPPER REFERENCE LIMIT (URL) OF TROPONIN, DEFINED THE 99TH PERCENTILE OF cTnI DISTRIBUTION IN A REFERENCE POPULATION, HAS BEEN CONFIRMED THE DECISION THRESHOLD FOR MS DIAGNOSIS. Performed By: #### B YISEL, WILIDM #### [facility] [address] [address] [address] Tori Mills TAMIKO 36 ng/mL Normal 16-96 [facility] Comment on above: Performed By: #### B YISEL, WILIDM #### [facility] [address] [place] [address] Dr. Tori Mills CBC AUTO DIFFon 06-11-2022 BASO # 0.0 103/ul Normal 0.0-0.1 [facility] Comment on above: Performed By: #### M ALBR #### [facility] [address] [address] [address] Tori Mills Basophils/100 WBC (Bld) 0.6 % Normal 0.2-2.0 [facility] Comment on above: Performed By: #### M ALBR #### [facility] [address] [place] [address] Dr. Tori Mills EO # 0.1 103/ul Normal 0.0-0.7 [facility] Comment on above: Performed By: #### M ALBR #### [facility] [address] [place] [address] Dr. Tori Mills Eosinophils/100 WBC (Bld) 1.0 % Normal 0.9-7.0 [facility] Comment on above: Performed By: #### M ALBR #### [facility] [address] [place] [address] Dr. Tori Mills Erythrocyte distribution width (RBC) [Ratio] 12.9 % Normal 11.0-15.0 [facility] Comment on above: Performed By: #### M ALBR #### [facility] [address] [place] [address] Dr. Tori Mills Hematocrit (Bld) [Volume fraction] 25.2 % Critically low 42.0-54.0 [facility] Comment on above: Performed By: #### M ALBR #### [facility] [address] [place] [address] Dr. Tori Mills Hemoglobin (Bld) [Mass/Vol] 7.7 g/dL Critically low 14.0-18.0 [facility] Comment on above: Performed By: #### M ALBR #### [facility] [address] [place] [address] Dr. Tori Mills IG # 0.03 10e3/ul Normal 0.00-0.03 [facility] Comment on above: Performed By: #### M ALBR #### [facility] [address] [place] [address] Dr. Tori Mills IG % 0.4 % Normal 0.0-0.5 [facility] Comment on above: Performed By: #### M ALBR #### [facility] [address] [address] [address] Tori Mills LYMPH # 1.9 103/ul Normal 1.2-3.8 [facility] Comment on above: Performed By: #### M ALBR #### [facility] [address] [address] [address] Tori Mills Lymphocytes/100 WBC (Bld) 28.0 % Normal 20.5-60.0 [facility] Comment on above: Performed By: #### M ALBR #### [facility] [address] [address] [address] Tori Mills MANUAL DIFF REQ NO Normal [facility] Comment on above: Performed By: #### M ALBR #### [facility] [address] [place] [address] Dr. Tori Mills MCH (RBC) [Entitic mass] 31.3 pg Normal 25.9-34.0 [facility] Comment on above: Performed By: #### M ALBR #### [facility] [address] [address] [address] Tori Mills MCHC (RBC) [Mass/Vol] 30.6 g/dL Normal 29.9-35.2 [facility] Comment on above: Performed By: #### M ALBR #### [facility] [address] [address] [address] Tori Mills MCV (RBC) [Entitic vol] 102.4 fL Critically high 80.0-94 .0 [facility] Comment on above: Performed By: #### M ALBR #### [facility] [address] [address] [address] Tori Mills MONO # 0.7 103/ul Normal 0.3-0.8 [facility] Comment on above: Performed By: #### M ALBR #### [facility] [address] [address] [address] Tori Mills Monocytes/100 WBC (Bld) 10.2 % Normal 1.7-12.0 [facility] Comment on above: Performed By: #### M ALBR #### [facility] [address] [address] [address] Tori Mills NEUT # 4.1 103/ul Normal 1.4-6.5 [facility] Comment on above: Performed By: #### M ALBR #### [facility] [address] [address] [address] Tori Mills Neutrophils/100 WBC (Bld) 59.8 % Normal 43.0-75.0 [facility] Comment on above: Performed By: #### M ALBR #### [facility] [address] [address] [address] Tori Mills Platelet mean volume (Bld) [Entitic vol] 11.6 fL Normal 9.5-13.5 [facility] Comment on above: Performed By: #### M ALBR #### [facility] [address] [address] [address] Tori Mills PLT 173 103/ul Normal 150-450 [facility] Comment on above: Performed By: #### M ALBR #### [facility] [address] [address] [address] Tori Mills RBC 2.46 106/ul Critically low 4.70-6.10 [facility] Comment on above: Performed By: #### M ALBR #### [facility] [address] [address] [address] Tori Mills WBC 6.8 103/ul Normal 4.0-11.0 [facility] Comment on above: Performed By: #### M ALBR #### [facility] [address] [address] [address] Tori Mills FERRITINon 06-11-2022 Ferritin [Mass/Vol] 17.0 ng/mL Critically low 26.0-388.0 [facility] Comment on above: Performed By: #### B MP, CMADM #### [facility] [address] [address] [address] Tori Mills IRON AND TIBCon 06-11-2022 % SATURATION 6.4 % Normal [facility] Comment on above: Performed By: #### B YISEL, WILIDM #### [facility] [address] [address] [address] Tori Mills Iron [Mass/Vol] 27.0 ug/dL Critically low 65.0-175.0 [facility] Comment on above: Performed By: #### B YISEL, CMADM #### [facility] [address] [place] [address] Dr. Tori Mills TIBC DIRECT 420.0 ug/dL Normal 250.0-450.0 [facility] Comment on above: Performed By: #### B YISEL, CMADM #### [facility] [address] [place] [address] Dr. Tori Mills MAGNESIUMon 06-11-2022 Magnesium [Mass/Vol] 1.7 mg/dL Critically low 1.8-2.4 [facility] Comment on above: Performed By: #### B YISEL, WILIDM #### [facility] [address] [place] [address] Dr. Tori Mills PROF CHEM 8 (BAS METB)on Anion gap [Moles/Vol] 11.3 mmol/L Normal [facility] Comment on above: Performed By: #### B YISEL, WILIDM #### [facility] [address] [place] [address] Dr. Tori Mills Calcium [Mass/Vol] 8.7 mg/dL Normal 8.5-10.1 [facility] Comment on above: Performed By: #### B YISEL, CMADM #### [facility] [address] [place] [address] Dr. Tori Mills Chloride [Moles/Vol] 102 mmol/L Normal 98-107 [facility] Comment on above: Performed By: #### B YISEL, CMADM #### [facility] [address] [place] [address] Dr. Tori Mills CO2 [Moles/Vol] 31.4 mmol/L Normal 21.0-32.0 [facility] Comment on above: Performed By: #### B YISEL, CMADM #### [facility] [address] [address] [address] Tori Mills Creatinine [Mass/Vol] 0.70 mg/dL Normal 0.70-1.30 [facility] Comment on above: Performed By: #### B YISEL, CMADM #### [facility] [address] [address] [address] Tori Mills EGFR-AF KOSOVAN >60 Normal >=60 [facility] Comment on above: Performed By: #### B YISEL, CMADM #### [facility] [address] [address] [address] Tori Mills EGFR-NON AF KOSOVAN >60 Normal >=60 [facility] Comment on above: Performed By: #### B YISEL, CMADM #### [facility] [address] [address] [address] Tori Mills Glucose [Mass/Vol] 127 mg/dL Critically high 74-106 [facility] Comment on above: Performed By: #### B YISEL, CMADM #### [facility] [address] [address] [address] Tori Mills Potassium [Moles/Vol] 3.7 mmol/L Normal 3.5-5.1 [facility] Comment on above: Performed By: #### B YISEL, CMADM #### [facility] [address] [address] [address] Tori Mills Sodium [Moles/Vol] 141 mmol/L Normal 136-145 [facility] Comment on above: Performed By: #### B YISEL, CMADM #### [facility] [address] [address] [address] Tori Mills Urea nitrogen [Mass/Vol] 14.0 mg/dL Normal 7.0-18.0 [facility] Comment on above: Performed By: #### B YISEL, CMADM #### [facility] [address] [address] [address] Tori Mills Urea nitrogen/Creatinine [Mass ratio] 20.0 mg/mg Normal [facility] Comment on above: Performed By: #### B YISEL, SAMARIA #### [facility] [address] [place] [address] Dr. Tori Mills PROTIMEon 06-11-2022 INR Coag (PPP) [Relative time] 3.32 {INR} Normal [facility] Comment on above: Performed By: #### P T #### [facility] [address] [place] [address] Dr. Tori Mills INR GUIDELINES SEE BELOW Normal [facility] Comment on above: Result Comment: FRANCI RED INR: 2.0 - 3.0 CONDITIONS NOT LISTED BELOW 2.5 - 3.5 FOR PROSTHETIC HEART VALVE REPLACEMENT 2.5 - 3.5 RECURRENT THROMBOSIS Performed By: #### P T #### [facility] [address] [place] [address] Dr. Tori Mills PT Coag (PPP) [Time] 32.9 s Critically high 9.0-11.6 [facility] Comment on above: Performed By: #### P T #### [facility] [address] [place] [address] Dr. Tori Mills TSHon 06-11-2022 TSH 1.084 uIU/mL Normal 0.358-3.740 [facility] Comment on above: Performed By: #### B SAMARIA MORILLO #### [facility] [address] [place] [address] Dr. Tori Mills XR CHEST 1 Von [...] CHELE MALAVE Date: 2022-06-11 20:24 Normal [facility] Office Visit (Cardiology)on 06-08-2022 Follow-up visit [...] with Coumadin managed by his PCP in [place], prescription for sotalol was provided since he [...] 0.4 MG Oral CapsuleTAKE 1 CAPSULE Daily Mittie 7.5-325 MG TABSTAKE 1 TABLET EVERY 6 [...] Respiratory: shortne (more content not included)... Normal [employer] Tobacco Screening.on 023 Fall risk assessment b) One or more fall s in the last year [facility] [address] [place] Work Phone: Tobacco use status CP a) Yes [facility] [place] [address] [place] Work Phone: Tobacco Screening. Yes [facility] [address] [place] Work Phone: PROTIMEon 06-02-2022 INR Coag (PPP) [Relative time] 2.48 {INR} Normal [facility] Comment on above: Performed By: #### P T #### [facility] [address] [place] [address] Dr. Tori Mills INR GUIDELINES SEE BELOW Normal [facility] Comment on above: Result Comment: FRANCI RED INR: 2.0 - 3.0 CONDITIONS NOT LISTED BELOW 2.5 - 3.5 FOR PROSTHETIC HEART VALVE REPLACEMENT 2.5 - 3.5 RECURRENT THROMBOSIS Performed By: #### P T #### [facility] [address] [place] [address] Dr. Tori Mills PT Coag (PPP) [Time] 25.2 s Critically high 9.0-11.6 [facility] Comment on above: Performed By: #### P T #### [facility] [address] [place] [address] Dr. Tori Mills PROTIMEon 05-26-2022 INR Coag (PPP) [Relative time] 4.70 {INR} Critically high [facility] Comment on above: Performed By: #### O BSCRN #### [facility] [address] [place] [address] Dr. Tori Mills INR GUIDELINES SEE BELOW Normal [facility] Comment on above: Result Comment: FRANCI RED INR: 2.0 - 3.0 CONDITIONS NOT LISTED BELOW 2.5 - 3.5 FOR PROSTHETIC HEART VALVE REPLACEMENT 2.5 - 3.5 RECURRENT THROMBOSIS Performed By: #### O BSCRN #### [facility] [address] [place] [address] Dr. Tori Mills PT Coag (PPP) [Time] 45.9 s Critically high 9.0-11.6 [facility] Comment on above: Performed By: #### O BSCRN #### [facility] [address] [place] [address] Dr. Tori Mills PROTIMEon 04-16-2022 INR Coag (PPP) [Relative time] 2.96 {INR} Normal [facility] Comment on above: Performed By: #### P T #### [facility] [address] [place] [address] Dr. Tori Mills INR GUIDELINES SEE BELOW Normal [facility] Comment on above: Result Comment: FRANCI RED INR: 2.0 - 3.0 CONDITIONS NOT LISTED BELOW 2.5 - 3.5 FOR PROSTHETIC HEART VALVE REPLACEMENT 2.5 - 3.5 RECURRENT THROMBOSIS Performed By: #### P T #### [facility] [address] [place] [address] Dr. Tori Mills PT Coag (PPP) [Time] 29.8 s Critically high 9.0-11.6 [facility] Comment on above: Performed By: #### P T #### [facility] [address] [place] [address] Dr. Tori Mills Office Visit (Cardiology)on 04-10-2022 [...] we can help. You may also call [phone] for free resources and assistance.; Status:Complete - [...] with Coumadin managed by his PCP in [place] 2?active tobacco abuse, education provided to end [...] 0.4 MG Oral CapsuleTAKE 1 CAPSULE Daily Mittie 7.5-325 MG TABSTAKE 1 TABLET EVERY 6 [...] Drug Allergie (more content not included)... Normal [employer] Tobacco Screening.on 022 Fall risk assessment a) No falls within the last year -[facility] [address] [place] Work Phone: Tobacco use status CPHS a) Yes M P-[facility] [address] [place] Work Phone: [phone] Tobacco Screening. Yes [facility] [address] [place] Work Phone: PROTIMEon 04-01-2022 INR Coag (PPP) [Relative time] 3.52 {INR} Normal [facility] Comment on above: Performed By: #### M ALBR #### [facility] [address] [place] [address] Dr. Tori Mills INR GUIDELINES SEE BELOW Normal [facility] Comment on above: Result Comment: FRANCI RED INR: 2.0 - 3.0 CONDITIONS NOT LISTED BELOW 2.5 - 3.5 FOR PROSTHETIC HEART VALVE REPLACEMENT 2.5 - 3.5 RECURRENT THROMBOSIS Performed By: #### M ALBR #### [facility] [address] [place] [address] Dr. Tori Mills PT Coag (PPP) [Time] 35.0 s Critically high 9.0-11.6 [facility] Comment on above: Performed By: #### M ALBR #### [facility] [address] [place] [address] Dr. Tori Mills PROTIMEon 03-16-2022 INR Coag (PPP) [Relative time] 5.12 {INR} Critically high [facility] Comment on above: Performed By: #### P T #### [facility] [address] [place] [address] Dr. Tori Mills INR GUIDELINES SEE BELOW Normal [facility] Comment on above: Result Comment: FRANCI RED INR: 2.0 - 3.0 CONDITIONS NOT LISTED BELOW 2.5 - 3.5 FOR PROSTHETIC HEART VALVE REPLACEMENT 2.5 - 3.5 RECURRENT THROMBOSIS Performed By: #### P T #### [facility] [address] [place] [address] Dr. Tori Mills PT Coag (PPP) [Time] 49.7 s Critically high 9.0-11.6 [facility] Comment on above: Performed By: #### P T #### [facility] [address] [place] [address] Dr. Tori Mills PROTIMEon 02-05-2022 INR Coag (PPP) [Relative time] 3.20 {INR} Normal [facility] Comment on above: Performed By: #### B YISEL, SAMARIA #### [facility] [address] [place] [address] Dr. Tori Mills INR GUIDELINES SEE BELOW Normal [facility] Comment on above: Result Comment: FRANCI RED INR: 2.0 - 3.0 CONDITIONS NOT LISTED BELOW 2.5 - 3.5 FOR PROSTHETIC HEART VALVE REPLACEMENT 2.5 - 3.5 RECURRENT THROMBOSIS Performed By: #### B YISEL, SAMARIA #### [facility] [address] [place] [address] Dr. Tori Mills PT Coag (PPP) [Time] 32.0 s Critically high 9.0-11.6 [facility] Comment on above: Performed By: #### B YISEL, SAMARIA #### [facility] [address] [place] [address] Dr. Tori Mills PROTIMEon 12-31-2021 INR Coag (PPP) [Relative time] 2.78 {INR} Normal [facility] Comment on above: Performed By: #### P T #### [facility] [address] [place] [address] Dr. Tori Mills INR GUIDELINES SEE BELOW Normal [facility] Comment on above: Result Comment: FRANCI RED INR: 2.0 - 3.0 CONDITIONS NOT LISTED BELOW 2.5 - 3.5 FOR PROSTHETIC HEART VALVE REPLACEMENT 2.5 - 3.5 RECURRENT THROMBOSIS Performed By: #### P T #### [facility] [address] [place] [address] Dr. Tori Mills PT Coag (PPP) [Time] 28.1 s Critically high 9.0-11.6 [facility] Comment on above: Performed By: #### P T #### [facility] [address] [place] [address] Dr. Tori Mills PROTIMEon 12-03-2021 INR Coag (PPP) [Relative time] 2.49 {INR} Normal [facility] Comment on above: Performed By: #### M ALBR #### [facility] [address] [place] [address] Dr. Tori Mills INR GUIDELINES SEE BELOW Normal [facility] Comment on above: Result Comment: FRANCI RED INR: 2.0 - 3.0 CONDITIONS NOT LISTED BELOW 2.5 - 3.5 FOR PROSTHETIC HEART VALVE REPLACEMENT 2.5 - 3.5 RECURRENT THROMBOSIS Performed By: #### M ALBR #### [facility] [address] [place] [address] Dr. Tori Mills PT Coag (PPP) [Time] 25.3 s Critically high 9.0-11.6 [facility] Comment on above: Performed By: #### M ALBR #### [facility] [address] [place] [address] Dr. Tori Mills PROTIMEon 11-13-2021 INR Coag (PPP) [Relative time] 3.05 {INR} Normal [facility] Comment on above: Performed By: #### B YISEL, SAMARIA #### [facility] [address] [place] [address] Dr. Tori Mills INR GUIDELINES SEE BELOW Normal [facility] Comment on above: Result Comment: FRANCI RED INR: 2.0 - 3.0 CONDITIONS NOT LISTED BELOW 2.5 - 3.5 FOR PROSTHETIC HEART VALVE REPLACEMENT 2.5 - 3.5 RECURRENT THROMBOSIS Performed By: #### B YISEL, CMADM #### [facility] [address] [place] [address] Dr. Tori Mills PT Coag (PPP) [Time] 30.6 s Critically high 9.0-11.6 [facility] Comment on above: Performed By: #### B YISEL, CMADM #### [facility] [address] [place] [address] Dr. Tori Mills PROTIMEon 10-02-2021 INR Coag (PPP) [Relative time] 3.11 {INR} Normal [facility] Comment on above: Performed By: #### B YISEL, WILIDM #### [facility] [address] [place] [address] Dr. Tori Mills INR GUIDELINES SEE BELOW Normal [facility] Comment on above: Result Comment: FRANCI RED INR: 2.0 - 3.0 CONDITIONS NOT LISTED BELOW 2.5 - 3.5 FOR PROSTHETIC HEART VALVE REPLACEMENT 2.5 - 3.5 RECURRENT THROMBOSIS Performed By: #### B YISEL, SAMARIA #### [facility] [address] [place] [address] Dr. Tori Mills PT Coag (PPP) [Time] 31.2 s Critically high 9.0-11.6 [facility] Comment on above: Performed By: #### B SAMARIA MORILLO #### [facility] [address] [place] [address] Dr. Tori Mills PROTIMEon 09-03-2021 INR Coag (PPP) [Relative time] 2.97 {INR} Normal [facility] Comment on above: Performed By: #### P T #### [facility] [address] [place] [address] Dr. Tori Mills INR GUIDELINES SEE BELOW Normal [facility] Comment on above: Result Comment: FRANCI RED INR: 2.0 - 3.0 CONDITIONS NOT LISTED BELOW 2.5 - 3.5 FOR PROSTHETIC HEART VALVE REPLACEMENT 2.5 - 3.5 RECURRENT THROMBOSIS Performed By: #### P T #### [facility] [address] [place] [address] Dr. Tori Mills PT Coag (PPP) [Time] 29.9 s Critically high 9.0-11.6 [facility] Comment on above: Performed By: #### P T #### [facility] [address] [place] [address] Dr. Tori Mills Tobacco Screening.on 022 Adult depression screening assessment No [facility] [address] [place] Work Phone: Fall risk assessment a) No falls within the last year [facility] [facility] [facility] [place] Work Phone: Tobacco use status CPHS a) Yes M [place] [facility] [facility] DO Work Phone: [phone] Tobacco Screening. Yes [facility] [facility] [place] Work Phone: Tobacco Screening. 0-Not at all [place] [facility] [facility] DO Work Phone: PROTIMEon 08-05-2021 INR Coag (PPP) [Relative time] 3.03 {INR} Normal [facility] Comment on above: Performed By: #### P T #### [facility] [address] [place] [address] Dr. Tori Mills INR GUIDELINES SEE BELOW Normal The [facility] Comment on above: Result Comment: FRANCI RED INR: 2.0 - 3.0 CONDITIONS NOT LISTED BELOW 2.5 - 3.5 FOR PROSTHETIC HEART VALVE REPLACEMENT 2.5 - 3.5 RECURRENT THROMBOSIS Performed By: #### P T #### [facility] [address] [place] [address] Dr. Tori Mills PT Coag (PPP) [Time] 30.4 s Critically high 9.0-11.6 [facility] Comment on above: Performed By: #### P T #### [facility] [address] [place] [address] Dr. Tori Mills PROTIMEon 07-09-2021 INR Coag (PPP) [Relative time] 2.36 {INR} Normal [facility] Comment on above: Performed By: #### B SAMARIA MORILLO #### [facility] [address] [place] [address] Dr. Tori Mills INR GUIDELINES SEE BELOW Normal [facility] Comment on above: Result Comment: FRANCI RED INR: 2.0 - 3.0 CONDITIONS NOT LISTED BELOW 2.5 - 3.5 FOR PROSTHETIC HEART VALVE REPLACEMENT 2.5 - 3.5 RECURRENT THROMBOSIS Performed By: #### B SAMARIA MORILLO #### [facility] [address] [place] [address] Dr. Tori Mills PT Coag (PPP) [Time] 24.1 s Critically high 9.0-11.6 [facility] Comment on above: Performed By: #### B MP, CMADM #### [facility] [address] [place], [place] [address] Dr. Tori Mills No Panel Informationon 04-01 Normal MP-[facility] [facility] DO Work Phone: Vital Signs Date Time Vital Sign Value Performing Clinician Facility 02-17-2024 11:00-0400 Body temperature 97.11 [degF] Roni Bolden MD Work Phone: [facility] 02-17-2024 11:00-0400 Body weight 69.6 kg Roni Bolden MD Work Phone: [facility] 02-17-2024 11:00-0400 Diastolic blood pressure 62 mm[Hg] Roni Bolden MD Work Phone: [facility] 02-17-2024 11:00-0400 Heart rate 75 /min Roni Bolden MD Work Phone: [facility] 02-17-2024 11:00-0400 Respiratory rate 18 /min Roni Bolden MD Work Phone: [facility] 02-17-2024 11:00-0400 SaO2% (BldA) [Mass fraction] 96 % Roni Bolden MD Work Phone: [facility] 02-17-2024 11:00-0400 Systolic blood pressure 92 mm[Hg] Roni Bolden MD Work Phone: [facility] 10-21-2023 10:37-0400 Diastolic blood pressure 72 mm[Hg] Israel Escamilla MD Work Phone: [facility] 10-21-2023 10:37-0400 Heart rate 74 /min Israel Escamilla MD Work Phone: [facility] 10-21-2023 10:37-0400 Systolic blood pressure 102 mm[Hg] Israel Escamilla MD Work Phone: [facility] 10-21-2023 10:34-0400 Body height 170.2 cm Israel Escamilla MD Work Phone: [facility] 10-21-2023 10:34-0400 Body mass index (BMI) [Ratio] 27.57 kg/m2 Israel Escamilla MD Work Phone: [facility] 10-21-2023 10:34-0400 Body weight 79.83 kg Israel Escamilla MD Work Phone: [facility] 04-13-2023 10:44-0500 Body height 167.6 cm Israel Escamilla MD Work Phone: [facility] 04-13-2023 10:44-0500 Body mass index (BMI) [Ratio] 28.89 kg/m2 Israel Escamilla MD Work Phone: [facility] 04-13-2023 10:44-0500 Body weight 81.19 kg Israel Escamilla MD Work Phone: [facility] 04-13-2023 10:44-0500 Diastolic blood pressure 78 mm[Hg] Israel Escamilla MD Work Phone: [facility] 04-13-2023 10:44-0500 Heart rate 71 /min Israel Escamilla MD Work Phone: [facility] 04-13-2023 10:44-0500 Systolic blood pressure 134 mm[Hg] Israel Escamilla MD Work Phone: [facility] 10-07-2022 15:40-0400 Body height 170.18 cm [facility] DO Work Phone: 10-07-2022 15:40-0400 Body mass index (BMI) [Ratio] 29.45 kg/m2 Pablo Abreu Work Phone: [facility] 250 DO Work Phone: 10-07-2022 15:40-0400 Body surface area Derived from formula 1.97 m2 Pablo A Naderer Work Phone: [facility] 250 DO Work Phone: 10-07-2022 15:40-0400 Body weight 85.28 kg Pablo A Naderer Work Phone: [facility] 250 DO Work Phone: 10-07-2022 15:40-0400 Diastolic blood pressure 76 mm[Hg] Pablo A Naderer Work Phone: [facility] 250 DO Work Phone: 10-07-2022 15:40-0400 Heart rate 75 /min Pablo A Naderer Work Phone: [facility] 250 DO Work Phone: 10-07-2022 15:40-0400 Systolic blood pressure 130 mm[Hg] Pablo A Naderer Work Phone: [facility] 250 DO Work Phone: 09-30-2022 11:24-0400 Diastolic blood pressure 80 mm[Hg] Pablo A Naderer Work Phone: [facility] 250 DO Work Phone: 09-30-2022 11:24-0400 Systolic blood pressure 118 mm[Hg] Pablo A Naderer Work Phone: [facility] 250 DO Work Phone: 09-30-2022 11:13-0400 Body height 170.18 cm Pablo A Naderer Work Phone: [facility] 250 DO Work Phone: 09-30-2022 11:13-0400 Body mass index (BMI) [Ratio] 29.29 kg/m2 Pablo Goodman Naderer Work Phone: [facility] 250 DO Work Phone: 09-30-2022 11:13-0400 Body surface area Derived from formula 1.97 m2 Pablo Goodman Naderer Work Phone: [facility] 250 DO Work Phone: 09-30-2022 11:13-0400 Body weight 84.82 kg Pablo Goodman Naderer Work Phone: [facility] 250 DO Work Phone: 09-30-2022 11:13-0400 Diastolic blood pressure 88 mm[Hg] Pablo Maxine Naderer Work Phone: [facility] 250 DO Work Phone: 09-30-2022 11:13-0400 Heart rate 78 /min Pablo Maxine Laverneerer Work Phone: [facility] 250 DO Work Phone: 09-30-2022 11:13-0400 Systolic blood pressure 140 mm[Hg] Pablo Gallowayerer Work Phone: [facility] 250 DO Work Phone: 09-03-2022 14:07-0400 Diastolic blood pressure 75 mm[Hg] MD Consuelo Antonioad Work Phone: [facility] 09-03-2022 14:07-0400 Heart rate 69 /min MD Consuelo Johnson Work Phone: [facility] 09-03-2022 14:07-0400 Respiratory rate 16 /min MD Consuelo Johnson Work Phone: [facility] 09-03-2022 14:07-0400 SaO2% (BldA) [Mass fraction] 97 % MD Cordero Asaroldan Work Phone: [facility] 09-03-2022 14:07-0400 Systolic blood pressure 121 mm[Hg] MD Consuelo Johnson Work Phone: [facility] 09-03-2022 11:43-0400 Body height 170.18 cm MD Consuelo Johnson Work Phone: [facility] 09-03-2022 11:43-0400 Body temperature 97.6 [degF] MD Consuelo Johnson Work Phone: [facility] 09-03-2022 11:43-0400 Body weight 81.64 kg MD Consuelo Johnson Work Phone: [facility] 08-20-2022 09:37-0400 Body temperature 97.6 [degF] MD Consuelo Johnson Work Phone: [facility] 08-20-2022 09:37-0400 Body weight 84.5 kg MD Consuelo Johnson Work Phone: [facility] 08-20-2022 09:37-0400 Diastolic blood pressure 83 mm[Hg] MD Consuelo Johnson Work Phone: [facility] 08-20-2022 09:37-0400 Heart rate 86 /min MD Consuelo Johnson Work Phone: [facility] 08-20-2022 09:37-0400 Respiratory rate 20 /min MD Consuelo Johnson Work Phone: [facility] 08-20-2022 09:37-0400 SaO2% (BldA) [Mass fraction] 93 % MD Consuelo Johnson Work Phone: [facility] 08-20-2022 09:37-0400 Systolic blood pressure 135 mm[Hg] MD Consuelo Johnson Work Phone: [facility] 08-05-2022 11:41-0500 Body height 170.18 cm Pablo Abreu Work Phone: PK-Msprmlxihs-TZB [facility] [address] [place] Work Phone: 08-05-2022 11:41-0500 Body mass index (BMI) [Ratio] 29.13 kg/m2 Pablo Nurr Work Phone: YJ-Tbaawdvxjh-CJN [facility] [address] [place] Work Phone: 08-05-2022 11:41-0500 Body surface area Derived from formula 1.96 m2 Pablo Nurr Work Phone: YF-Ryzupbdrlh-DHG [facility] [address] [place] Work Phone: 08-05-2022 11:41-0500 Body temperature 96.6 [degF] Pablo Abreu Work Phone: LR-Hnkoolotvm-VOW [facility] [address] [place] Work Phone: 08-05-2022 11:41-0500 Body weight 84.37 kg Pablo Abreu Work Phone: FX-Fjrnhkjiqj-BJR [facility] [address] [place] Work Phone: 08-05-2022 11:41-0500 Diastolic blood pressure 84 mm[Hg] Pablo Nurr Work Phone: MK-Tljwwkaaub-KFC [facility] [address] [place] Work Phone: 08-05-2022 11:41-0500 Heart rate 82 /min Pablo Nurr Work Phone: HB-Mjkwnepfic-LRV [facility] [address] [place] Work Phone: 08-05-2022 11:41-0500 Respiratory rate 16 /min Pablo Nurr Work Phone: XT-Ccjeroalzh-URU [facility] [address] [place] Work Phone: 08-05-2022 11:41-0500 SaO2% (BldA) [Mass fraction] 96 % Pablo Nurr Work Phone: OS-Uixfzmitfo-YQH [facility] [address] [place] Work Phone: 08-05-2022 11:41-0500 Systolic blood pressure 146 mm[Hg] Pablo Abreu Work Phone: VZ-Qvlaqkknef-EDK [facility] [employer] [address] [place] Work Phone: 08-03-2022 15:06-0500 Body weight 83.4 kg MD Cordero Asaad Work Phone: [facility] 08-03-2022 15:06-0500 Diastolic blood pressure 96 mm[Hg] Imad Asaad Work Phone: [facility] 08-03-2022 15:06-0500 Heart rate 86 /min Imroldan Asaad Work Phone: [facility] 08-03-2022 15:06-0500 Respiratory rate 16 /min Imroldan Asaad Work Phone: [facility] 08-03-2022 15:06-0500 SaO2% (BldA) [Mass fraction] 98 % Imad Asaad Work Phone: [facility] 08-03-2022 15:06-0500 Systolic blood pressure 162 mm[Hg] MD Cordero Asaad Work Phone: [facility] 08-03-2022 14:49-0500 Body height 170.18 cm MD Cordero Asaad Work Phone: [facility] 07-29-2022 13:15-0500 Body height 167.64 cm Imad Asaad Other [facility] [employer] Other 07-29-2022 13:15-0500 Body mass index (BMI) [Ratio] 30.99 kg/m2 Imad Asaad Other [facility] [employer] Other 07-29-2022 13:15-0500 Body weight 87.09 kg Imad Asaad Other [facility] [employer] Other 07-29-2022 13:15-0500 Diastolic blood pressure 78 mm[Hg] Imad Asaad Other [facility] [employer] Other 07-29-2022 13:15-0500 Systolic blood pressure 127 mm[Hg] Imad Asaad Other [facility] [employer] Other 06-08-2022 13:44-0500 Body height 170.18 cm Pablo A Naderer Work Phone: [facility] [employer] 250 DO Work Phone: 06-08-2022 13:44-0500 Body mass index (BMI) [Ratio] 28.98 kg/m2 Pablo A Naderer Work Phone: [facility] [employer] 250 DO Work Phone: 06-08-2022 13:44-0500 Body surface area Derived from formula 1.96 m2 Pablo A Naderer Work Phone: [facility] [employer] 250 DO Work Phone: 06-08-2022 13:44-0500 Body weight 83.92 kg Pablo A Naderer Work Phone: [facility] [employer] 250 DO Work Phone: 06-08-2022 13:44-0500 Diastolic blood pressure 80 mm[Hg] Pablo A Naderer Work Phone: [facility] [employer] 250 DO Work Phone: 06-08-2022 13:44-0500 Diastolic blood pressure 70 mm[Hg] Pablo A Naderer Work Phone: [facility] [employer] 250 DO Work Phone: 06-08-2022 13:44-0500 Diastolic blood pressure 50 mm[Hg] Pablo A Naderer Work Phone: [facility] 250 DO Work Phone: 06-08-2022 13:44-0500 Systolic blood pressure 122 mm[Hg] Pablo Maxine Naderer Work Phone: [facility] 250 DO Work Phone: 06-08-2022 13:44-0500 Systolic blood pressure 102 mm[Hg] Pablo Maxine Naderer Work Phone: [facility] 250 DO Work Phone: 06-08-2022 13:44-0500 Systolic blood pressure 82 mm[Hg] Pablo Maxine Naderer Work Phone: [facility] [employer]-[place] 250 DO Work Phone: 06-08-2022 13:44-0500 75 1 Pablo Goodman Naderer Work Phone: [facility] [employer]-[place] 250 DO Work Phone: Comment on above: [employer] 04-10-2022 14:17-0500 Body height 170.18 cm Pablo Goodman Naderer Work Phone: [facility] [employer]-[place] 250 DO Work Phone: 04-10-2022 14:17-0500 Body mass index (BMI) [Ratio] 29.45 kg/m2 Pablo Maxine Naderer Work Phone: [facility] 250 DO Work Phone: 04-10-2022 14:17-0500 Body surface area Derived from formula 1.97 m2 Pablo Goodman Naderer Work Phone: [facility] 250 DO Work Phone: 04-10-2022 14:17-0500 Body weight 85.28 kg Pablo Goodman Naderer Work Phone: [facility]-[place] 250 DO Work Phone: 04-10-2022 14:17-0500 Diastolic blood pressure 86 mm[Hg] Pablo Goodman Naderer Work Phone: [facility] [employer]-[place] 250 DO Work Phone: 04-10-2022 14:17-0500 Heart rate 77 /min Pablo Goodman Naderer Work Phone: [facility] [employer] 250 DO Work Phone: 04-10-2022 14:17-0500 Systolic blood pressure 118 mm[Hg] Pablo Goodman Naderer Work Phone: [facility] [employer] 250 DO Work Phone: 11-27-2021 14:35-0400 Body height 167.64 cm Nataliia Zee Other [employer] Other 11-27-2021 14:35-0400 Body mass index (BMI) [Ratio] 30.66 kg/m2 Nataliia Zee Other [employer] Other 11-27-2021 14:35-0400 Body temperature 97.7 [degF] Nataliia Zee Other [employer] Other 11-27-2021 14:35-0400 Body weight 86.18 kg Nataliia Zee Other [employer] Other 11-27-2021 14:35-0400 Diastolic blood pressure 75 mm[Hg] Nataliia Koch Other [employer] Other 11-27-2021 14:35-0400 Respiratory rate 18 /min Nataliia Koch Other [employer] Other 11-27-2021 14:35-0400 SaO2% (BldA) [Mass fraction] 99 % Nataliia Koch Other [employer] Other 11-27-2021 14:35-0400 Systolic blood pressure 124 mm[Hg] Nataliia Koch Other [employer] Other 08-21-2021 11:11-0400 Heart rate 69 /min Pablo Gallowayerer Work Phone: [facility] [employer]-[place] 250 DO Work Phone: 08-21-2021 10:59-0400 Body height 170.18 cm Pablo Goodman Naderer Work Phone: [facility] [employer]-[place] 250 DO Work Phone: 08-21-2021 10:59-0400 Body mass index (BMI) [Ratio] 30.54 kg/m2 Pablo Goodman Naderer Work Phone: [facility] [employer]-[place] 250 DO Work Phone: 08-21-2021 10:59-0400 Body surface area Derived from formula 2 m2 Pablo Gallowayerer Work Phone: [facility] 250 DO Work Phone: 08-21-2021 10:59-0400 Body weight 88.45 kg Pablo Goodman Naderer Work Phone: [facility] 250 DO Work Phone: 08-21-2021 10:59-0400 Diastolic blood pressure 84 mm[Hg] Pablo Maxine Naderer Work Phone: [facility] 250 DO Work Phone: 08-21-2021 10:59-0400 Systolic blood pressure 128 mm[Hg] Pablo Maxine Naderer Work Phone: [facility] 250 DO Work Phone: 04-01-2021 12:00-0400 52 1 Pablo Abreu Work Phone: [employer] [address] [place] Work Phone: Comment on above: [id number] Encounters Encounter Date Encounter Type Care Provider Facility Start: 02-17-2024 End: 02-17-2024 ambulatory RONI BOLDEN Facility:[facility] Start: 02-17-2024 End: 02-17-2024 Office outpatient new 60 minutes Roni Bolden MD Work Phone: Hematology/Oncology Comment on above: Lung mass (Primary D x); Neoplasm of lung; Diarrhea, unspecified type Start: 02-15-2024 End: 02-15-2024 Chart abstracting Roni Bolden MD Work Phone: Hematology/Oncology Start: 02-14-2024 End: 02-15-2024 Telephone encounter Roni Bolden MD Work Phone: Hematology/Oncology Comment on above: Lab Orders Start: 02-04-2024 End: 02-04-2024 ambulatory PABLO ABREU Not Available Start: 12-22-2023 End: 12-22-2023 ambulatory PABLO NURR Not Available Start: 12-06-2023 End: 12-06-2023 ambulatory PABLO ABREU Not Available Start: 11-04-2023 End: 11-04-2023 ambulatory PABLO GALLOWAYERER Not Available Start: 10-21-2023 End: 10-21-2023 ambulatory [facility] Start: 10-21-2023 End: 10-21-2023 Office outpatient visit 25 minutes Israel Escamilla MD Work Phone: [facility] Comment on above: Atrial fibrillation and flutter (Multi) (Primary Dx); Orthostatic hypotension; Presence of Watchman left atrial appendage closure device; 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; Mixed hyperlipidemia; Type 2 diabetes mellitus without complication, without long-term current use of insulin (Multi); Current every day smoker; Overweight with body mass index (BMI) of 27 to 27.9 in adult Start: 09-09-2023 End: 09-09-2023 ambulatory PABLO ARBEU Not Available Start: 07-19-2023 End: 07-19-2023 ambulatory PABLO ABREU Not Available Start: 04-13-2023 End: 04-13-2023 Office outpatient visit 25 minutes Israel Escamilla MD Work Phone: [facility] Comment on above: Atrial fibrillation and flutter (CMS/HCC); 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; Mixed hyperlipidemia; Type 2 diabetes mellitus without complication, without long-term current use of insulin (CMS/HCC); Cerebrovascular accident (CVA), unspecified mechanism (CMS/HCC); Chronic obstructive pulmonary disease, unspecified COPD type (CMS/HCC); Current every day smoker; Coronary artery disease involving kasaan heart without angina pectoris, unspecified vessel or lesion type Start: 04-13-2023 End: 04-13-2023 ambulatory ISRAEL Angela [facility] Start: 01-04-2023 Chart Update Pablo Abreu Work Phone: IC-Ssfwlfjvws-AJJ [facility] [address] [place] Work Phone: Start: 12-25-2022 ambulatory BRUCE WOLF Facility :[id number] Start: 12-24-2022 End: 12-24-2022 ambulatory Pablo Abreu Facility:[facility] Start: 12-24-2022 End: 12-24-2022 ambulatory MD Pablo Abreu Work Phone: [facility] Work Phone: Start: 12-24-2022 End: 12-24-2022 Patient encounter procedure MD Pablo Abreu Work Phone: [facility] [place] Work Phone: Start: 11-02-2022 Chart Update Pablo Abreu Work Phone: [facility] 250 DO Work Phone: Start: 10-29-2022 End: 10-29-2022 ambulatory Pablo Abreu Facility:[facility] Start: 10-29-2022 End: 10-29-2022 ambulatory MD Consuelo Johnson Work Phone: [facility] Work Phone: Start: 10-29-2022 End: 10-29-2022 Patient encounter procedure MD Consuelo Johnson Work Phone: [facility] [place] Work Phone: Start: 10-07-2022 Patient encounter procedure Pablo Abreu Work Phone: [facility] 250 DO Work Phone: Start: 10-07-2022 ambulatory Wood Escamilla Facility : Start: 09-30-2022 Office outpatient visit 25 minutes Pablo Abreu Work Phone: [facility] 250 DO Work Phone: Start: 09-30-2022 ambulatory Wood Escamilla Facility : Start: 09-03-2022 End: 09-03-2022 Admission to same day surgery center MD Consuelo Johnson Work Phone: [facility] Work Phone: Start: 09-02-2022 Chart Update Pablo Abreu Work Phone: BT-Izmpuciica-QXA [facility] [address] [place] Work Phone: Start: 08-25-2022 Encounter for examination for normal comparison and control in clinical research program Dr. Katia Alex [facility] Start: 08-25-2022 ambulatory NITZA SERVIN Facility:[facility] Start: 08-25-2022 End: 08-25-2022 Evaluation and management of inpatient Dr. Katia Alex Facility:[facility] Start: 08-20-2022 End: 08-20-2022 ambulatory MD Consuelo Johnson Work Phone: [facility] Work Phone: Start: 08-20-2022 End: 08-20-2022 Registered Recurring MD Consuelo Johnson Work Phone: [facility] Work Phone: Start: 08-07-2022 AUDIT Pablo Abreu Work Phone: AV-Bxpesqcarq-HTT [address] [address] [place] Work Phone: Start: 08-05-[address] Katia mcdonald [facility] Facility:[id number] Start: 08-03-2022 End: 08-03-2022 ambulatory MD Consuelo Johnson Work Phone: [facility] Work Phone: Start: 08-03-2022 End: 08-03-2022 Registered Recurring MD [facility]o Johnson [facility]: Start: 07-31-2022 Patient encounter procedure Pablo Abreu Work Phone: [facility] 250 DO Work Phone: Start: 07-29-2022 End: 07-29-2022 ambulatory Imad Asaad Other [facility] [employer] Other Start: 07-29-2022 [facility] visit new patient Imroldan Asaroldan [facility] Start: 07-02-2022 End: 07-03-[address] PABLO ABREU Facility:[facility] Start: 06-16-2022 End: 06-16-[address] PABLO ABREU Facility:[facility] Start: 06-12-2022 End: 06-14-2022 ambulatory HECTOR Chávez Facility:[facility] Start: 06-08-[address] Pablo Abreu Facility: Start: 06-08-2022 Patient encounter procedure Pablo Abreu Work Phone: [facility] 250 DO Work Phone: Start: 06-02-2022 End: 06-30-[address] PABLO ABREU Facility:[facility] Start: 05-26-2022 End: 05-27-[address] PABOL ABREU Facility:[facility] Start: 04-10-2022 Office outpatient visit 25 minutes Pablo Abreu Work Phone: [facility] 250 DO Work Phone: Start: 04-10-2022 ambulatory Woodjames Prideim Facility : Start: 04-01-2022 End: 04-29-[address] PABLO ABREU Facility:[facility] Start: 03-16-2022 End: 03-30-[address] PABLO ABREU Facility:[facility] Start: 03-02-2022 AUDIT Pablo Abreu Work Phone: [facility] 250 DO Work Phone: Start: 02-25-2022 Rx Renewal Pablo Abreu Work Phone: [facility] 250 DO Work Phone: Start: 02-09-2022 Rx Renewal Pablo Abreu Work Phone: [facility] 600 [place] Work Phone: Start: 02-05-2022 End: 02-28-[address] PABLO ABREU Facility:[facility] Start: 01-26-2022 End: 01-26-2022 ambulatory Nataliia Koch Other [employer] Other Start: 01-26-2022 Telephone encounter Nataliia johnson [facility] Start: 12-31-2021 End: 01-28-[address] PABLO ABREU Facility:[facility] Start: 12-03-2021 End: 12-26-[address] PABLO ABREU Facility:[facility] Start: 11-27-2021 End: 11-27-2021 ambulatory Nataliia Koch Other [facility] [employer] Other Start: 11-27-2021 Office outpatient ne w 20 minutes Nataliia Koch [facility] Start: 11-13-2021 End: 11-28-[address] PABLO ABREU Facility:[facility] Start: 10-05-2021 End: 10-05-[address] RUDDY CEBALLOS Facility:[facility] Start: 10-02-2021 End: 10-28-[address] PABLO ABREU Facility:[facility] Start: 09-03-2021 End: 09-03-[address] PABLO ABREU Facility:[facility] Start: 08-21-2021 Office outpatient visit 25 minutes Pablo Abreu Work Phone: [facility]-[place] 250 DO Work Phone: Start: 08-05-2021 End: 08-28-[address] PABLO ABREU Facility:[facility] Start: 07-09-2021 End: 07-28-[address] PABLO ABREU Facility:[facility] Start: 04-03-2021 Chart Update Pablo Abreu Work Phone: [facility] 600 DO Work Phone: Start: 04-01-2021 Patient encounter procedure Pablo Abreu Work Phone: [facility] [address] [place] Work Phone: Procedures Date [...] on above: Performed By: #### OBSCRN #### [facility] [address] [place] [address] Dr. Tori Mills Start: 06-23-2015 Total colonoscopy Pablo Abreu Work Phone: Atrial appendage aries sure device insertion Pablo Abreu Work Phone: Elbow joint operations Pablo Nurr Work Phone: Procedure on back Pablo sousar Work Phone: Repair of inguinal hernia Ma kin Maxine [employer] Work Phone: Vasectomy Pablo Goodman Lois Work Phone: Plan of Treatment Date Care Activity Detail Author Start: 10-06-2031 DTaP/Tdap/Td Vaccines (2 - Tdap) DTaP/Tdap/Td Vaccines (2 - Tdap) [facility] Start: 10-06-2031 Urine microalbumin profile DTaP,Tdap,Td Vaccine (2 - Tdap) [facility] Start: 08-12-2025 Diabetes Screening Diabetes Screening [facility] Start: 05-18-2024 End: 05-18-2024 Patient encounter procedure 05/18/2024 9:50 AM EST Office Visit [facility] [address] [facility] [address] [place] [address] Israel Escamilla MD [address] [facility] [address] [place] [address] [facility] Start: 03-03-2024 End: 03-03-2024 Patient encounter procedure 03/03/2024 1:30 PM EDT Appointment Radiology Pet CT [address] [place] [address] [place] [address] [address] Comment on above: Pet scan Start: 03-02-2024 End: 03-18-2025 MR Brain WO and W contrast IV MRI BRAIN WO/W IVCON Radiology Routine Lung mass Expected: 03/02/2024 (Approximate), Expires: 03/18/2025 [facility] Work Phone: Comment on above: Expected: 03/02/2024 (Approximate), Expi res: 03/18/2025 Start: 02-17-2024 End: 02-17-2024 Patient encounter procedure 02/17/2024 12:00 PM EDT Office Visit [facility] [address] [place] [address] lab per ADRIANA Calles in [facility] Comment on above: lab per ADRIANA Calles in Start: 02-17-2024 End: 02-17-2024 ambulatory 02/17/2024 11:00 AM EDT Visit (SP) Office Hematology/Oncology [address] [address] Roni Bolden MD [address] [place] [address] 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 with other associated areas to the liver and right adrenal gland concerning for metastasis Hematology/Oncology Comment on above: Left upper lung concerning for bronchoge jimi carcinoma with other associated areas to the liver and right adrenal gland concerning for metastasis Start: 01-30-2024 Covid-19 Vaccine ( season) Covid-19 Vaccine ( season) [facility] Start: 01-30-2024 Covid-19 Vaccine ( season) Covid-19 Vaccine () [facility] Start: 01-30-2024 Influenza vaccination [facility] Start: 10-21-2023 End: 10-21-2023 Patient encounter procedure 10/21/2023 10:20 AM EDT Office Visit [place] [address] [place] [address] Israel Escamilla MD [address] [facility] [address], [address] [place] [address] [facility] Start: 07-23-2023 Screening for malignant neoplasm of colon [facility] Start: 05-31-2023 Advance Directive Discussion Advance Directive Discussion [facility] Start: 04-13-2023 End: 04-13-2024 Alanine aminotransferase [Enzymatic activity/volume] in Serum or Plasma by With P-5'-P Alanine Aminotransferase Lab Routine Atrial fibrillation and flutter (CMS/HCC) Expected: 04/13/2023 (Approximate), Expires: 04/13/2024 [facility] Service Area Work Phone: Comment on above: Expected: 04/13/2023 (Approximate), Expi res: 04/13/2024 Start: 04-13-2023 End: 04-13-2024 Aspartate aminotransferase [Enzymatic activity/volume] in Serum or Plasma by With P-5'-P Aspartate Aminotransferase Lab Routine Atrial fibrillation and flutter (CMS/HCC) Expected: 04/13/2023 (Approximate), Expires: 04/13/2024 [facility] Work Phone: Comment on above: Expected: 04/13/2023 (Approximate), Expi res: 04/13/2024 Start: 04-13-2023 End: 04-13-2024 Basic metabolic 2000 panel - Serum or Plasma Basic Metabolic Panel Lab Routine Atrial fibrillation and flutter (CMS/HCC) Expected: 04/13/2023 (Approximate), Expires: 04/13/2024 [facility] Work Phone: Comment on above: Expected: 04/13/2023 (Approximate), Expi res: 04/13/2024 Start: 04-13-2023 End: 04-13-2024 CBC panel - Blood by Automated count CBC Lab Routine Atrial fibrillation and flutter (CMS/HCC) Expected: 04/13/2023 (Approximate), Expires: 04/13/2024 [facility] Work Phone: Comment on above: Expected: 04/13/2023 (Approximate), Expi res: 04/13/2024 Start: 04-13-2023 End: 04-13-2024 Lipid 1996 panel - Serum or Plasma Lipid Panel Lab Routine Atrial fibrillation and flutter (CMS/HCC) Coronary artery disease involving kasaan heart without angina pectoris, unspecified vessel or lesion type Expected: 04/13/2023 (Approximate), Expires: 04/13/2024 [facility] Work Phone: Comment on above: Expected: 04/13/2023 (Approximate), Expi res: 04/13/2024 Start: 04-13-2023 FUV, Provider: Israel Escamilla, Status: Pen, Time: 10:40 AM FUV, Provider: Israel Escamilla, Status: Pen, Time: 10:40 AM [facility] [address] DO Work Phone: Start: 03-26-2023 COVID-19 Vaccine (3 - Booster for Barn[place] series) COVID-19 Vaccine (3 - Booster for Brandon series) [facility] Start: 03-26-2023 COVID-19 Vaccine (2022- season) COVID-19 Vaccine ( season) [facility] Start: 10-07-2022 EKG, Provider: MARCO CARABALLO TIE MAKER 1,[id number], Status: Pen, Time: 3:00 PM EKG, Provider: MARCO CARABALLO TIE MAKER 1,[id number], Status: Pen, Time: 3:00 PM [facility] 250 DO Work Phone: Start: 09-30-2022 FUV, Provider: Israel Escamilla, Status: Pen, Time: 11:00 AM FUV, Provider: Israel Escamilla, Status: Pen, Time: 11:00 AM [facility] 250 DO Work Phone: Start: 09-03-2022 [facility] Start: 06-11-2022 Shingrix Vaccine (2 of 3) Shingrix Vaccine (2 of 3) [facility] Start: 06-11-2022 Zoster Vaccines (3 of 3) Zoster Vaccines (3 of 3) [facility] Start: 04-10-2022 FUV, Provider: Israel Escamilla, Status: Pen, Time: 2:10 PM FUV, Provider: Israel Escamilla, Status: Pen, Time: 2:10 PM [facility] 250 DO Work Phone: Start: 03-11-2022 FUV, Provider: Israel Escamilla, Status: Pen, Time: 10:00 AM FUV, Provider: Israel Escamilla, Status: Pen, Time: 10:00 AM [facility] 250 DO Work Phone: Start: 08-07-2021 FUV, Provider: Israel Escamilla, Status: Pen, Time: 10:40 AM FUV, Provider: Israel Escamilla, Status: Pen, Time: 10:40 AM [facility] Work Phone: Start: 2014 Abdominal aortic aneurysm screening Abdominal Aortic Aneurysm (AAA) Screening [facility] Start: 2014 Pneumococcal Vaccine: 65+ (1 of 1 - PCV) Pneumococcal Vaccine: 65+ (1 of 1 - PCV) [facility] Start: 2009 RSV Vaccine (1 - 1-dose 60+ series) RSV Vaccine (1 - 1-dose 60+ series) [facility] Start: 10-19-1999 Shingrix Vaccine (1 of 2) Shingrix Vaccine (1 of 2) [facility] Start: 1994 Diabetes Screening Diabetes Screening [facility] Start: 1994 Screening for malignant neoplasm of colon [facility] Start: 1984 Lipid panel Lipid Screening [facility] Start: 1968 Urine microalbumin profile DTaP,Tdap,Td Vaccine (1 - Tdap) [facility] Start: 1968 Urine screening for protein Diabetes: Urine Protein Screening [facility] Start: 10-19-1967 Anxiety Screening Anxiety Screening [facility] Start: 10-19-1967 Depression Screening Depression Screening [facility] Start: 10-19-1967 Hepatitis C screening Hepatitis C Screening [facility] Start: 10-19-1959 Diabetic foot examination Diabetes: Foot Exam [facility] Start: 10-19-1959 Glaucoma screening Diabetes: Retinopathy Screening [facility] Start: 1949 Abdominal aortic aneurysm screening Abdominal Aortic Aneurysm Screening [facility] Start: 1949 Hemoglobin A1c measurement Diabetes: Hemoglobin A1C [facility] Start: 1949 Lipid panel Lipid Panel [facility] Start: 1949 Medicare Annual Wellness Visit Medicare Annual Wellness Visit (AWV) [facility] Start: 1949 Screening for malignant neoplasm of colon [facility] Clostridioides diffi cile toxin genes [Presence] in Stool by DREA with probe detection C. DIFFICILE PCR Lab Routine Diarrhea, unspecified type Ordered: 02/17/2024 [facility] Comment on above: Ordered: 02/17/2024 Comprehensive metabo lic 2000 panel - Serum or Plasma [facility] Ferritin [Mass/volum e] in Serum or Plasma [facility] Haptoglobin [Mass/vo lume] in Serum or Plasma [facility] Lactate dehydrogenas e [Enzymatic activity/volume] in Unspecified specimen [facility] Patient Education Hemorrhoids (D C) Diverticulosis (DC) Gastritis (DC) [facility] Work Phone: End: 03-18-2025 PET+CT Guidance for localization of tumor of Skull base to mid-thigh-- W [id number] IV NM PET/CT SKULL-THIGH INITIAL Radiology Routine Neoplasm of lung 1 Occurrences starting 02/17/2024 until 03/18/2025 [facility] Comment on above: 1 Occurrences starting 02/17/2024 until 03/18/2025 [facility] Immunizations Immunization Date Immunization Notes Care Provider Lisa vitale 04-16-2022 zoster vaccine, unspecified formulation Israel Escamilla MD Work Phone: [facility] Work Phone: 04-06-2022 zoster vaccine recombinant Pablo Abreu Work Phone: [facility] 250 DO Work Phone: 02-21-2022 Fluzone High-Dose Quadrivalent 0.7 ML Intramuscular Suspension Prefilled Syringe Pablo A Naderer Work Phone: [facility] 250 DO Work Phone: 02-21-2022 influenza, seasonal, injectable Israel Escamilla MD Work Phone: [facility] Work Phone: 02-21-2022 Pfizer COVID-19 Vac Bivalent 30 MCG/0.3ML Intramuscular Suspension Pablo A Naderer Work Phone: [facility] 250 DO Work Phone: 02-21-2022 influenza virus vaccine, unspecified formulation Roni Bolden MD Work Phone: [facility] 10-05-2021 diphtheria, tetanus toxoids and pertussis vaccine Pablo A [employer] Work Phone: [facility] 04-23-2021 influenza, seasonal, injectable Israel Escamilla MD Work Phone: [facility] Work Phone: 04-10-2021 Brandon COVID-19 Vaccine 0.5 ML Intramuscular Suspension Pablo A [employer] Work Phone: [facility] 250 DO Work Phone: 04-03-2021 Fluad Quadrivalent 0 .5 ML Intramuscular Prefilled Syringe Pablo A [employer] Work Phone: [facility] 250 DO Work Phone: 08-05-2020 Brandon COVID-19 Vaccine 0.5 ML Intramuscular Suspension Pablo A [employer] Work Phone: [facility] 600 DO Work Phone: 02-12-2020 influenza, injectabl e, quadrivalent, preservative free Pablo A Naderer Work Phone: [facility] 600 DO Work Phone: 05-31-2019 influenza, seasonal, injectable Pablo A Naderer Work Phone: [facility] [employer] DO Work Phone: 03-06-2019 pneumococcal polysaccharide vaccine, 23 valent Pablo A Naderer Work Phone: [facility] 03-06-2019 Seasonal trivalent influenza vaccine, adjuvanted, preservative free Pablo A Naderer Work Phone: [facility] [employer] DO Work Phone: 03-02-2018 Seasonal trivalent influenza vaccine, adjuvanted, preservative free Pablo A Naderer Work Phone: [facility] [employer] DO Work Phone: 02-22-2017 influenza, injectabl e, quadrivalent, preservative free Pablo A Naderer Work Phone: [facility] [employer] DO Work Phone: 07-22-2016 influenza, injectabl e, quadrivalent, preservative free Pablo A Naderer Work Phone: [facility] [employer] DO Work Phone: 07-22-2016 pneumococcal polysaccharide vaccine, 23 valent Pablo A Naderer Work Phone: [facility] 03-20-2016 influenza, high dose seasonal, preservative-free Pablo A Naderer Work Phone: [facility] [employer] DO Work Phone: 03-20-2016 pneumococcal conjuga te vaccine, 13 valent Pablo A Naderer Work Phone: [facility] 02-25-2015 influenza, high dose seasonal, preservative-free Pablo A Naderer Work Phone: [facility] [employer] DO Work Phone: 07-09-2014 zoster vaccine, live Pablo A Naderer Work Phone: [facility] 05-31-2014 pneumococcal polysaccharide vaccine, 23 valent Pablo Abreu Work Phone: [facility] 600 DO Work Phone: 02-22-2013 influenza, seasonal, injectable Pablo Abreu Work Phone: [facility] 600 DO Work Phone: Payers Date Payer Category Payer Unknown 2022 Self-pay [id number] 2018 Medicare [id number] 1959 Medicare [id number] 2. [id number] 1949 Unknown [id number] 2.16.84 0.1.188750.3.579.2.593 1949 Unknown [id number] 2.16.84 0.1.994816.3.579.2.593 1949 Unknown [id number] 2.16.84 0.1.916261.3.579.2.593 1949 Unknown [id number] 2.16.84 0.1.804783.3.579.2.593 1949 Unknown [id number] 2.16.84 0.1.157526.3.579.2.593 1949 Unknown [id number] 2.16.84 0.1.583674.3.579.2.593 1949 Unknown [id number] 2.16.84 0.1.992854.3.579.2.593 1949 Unknown [id number] 2.16.84 0.1.627116.3.579.2.593 1949 Unknown [id number] 2.16.84 0.1.237543.3.579.2.593 1949 Unknown [id number] 2.16.84 0.1.267343.3.579.2.593 1949 Unknown [id number] 2.16.84 0.1.642351.3.579.2.593 1949 Unknown [id number] 2.16.84 0.1.646332.3.579.2.593 1949 Unknown [id number] 2.16.84 0.1.301715.3.579.2.593 1949 Unknown [id number] 2.16.84 0.1.453705.3.579.2.593 1949 Unknown [id number] 2.16.84 0.1.625019.3.579.2.593 1949 Unknown [id number] 2.16.84 0.1.921511.3.579.2.593 1949 Unknown [id number] 2.16.84 0.1.971776.3.579.2.593 1949 Unknown [id number] 2.16. 840.1.284791.3.579.2.356 1949 Unknown [id number] 2.16. 840.1.712456.3.579.2.356 1949 Unknown [id number] 2.16. 840.1.219438.3.579.2.356 1949 Unknown [id number] 2.16. 840.1.449622.3.579.2.356 1949 Unknown [id number] 2.16. 840.1.255417.3.579.2.356 1949 Unknown [id number] 2.16. 840.1.611506.3.579.2.356 1949 Unknown [id number] 2.16. 840.1.302039.3.579.2.356 1949 Unknown [id number] 2.16.8 40.1.267954.3.579.2.1068 1949 Unknown [id number] 2.16.8 40.1.661525.3.579.2.1068 1949 Unknown [id number] 2.16.84 0.1.707445.3.579.2.1259 1949 Unknown [id number] 2.16.84 0.1.471572.3.579.2.1259 1949 Unknown [id number] 2.16.84 0.1.603764.3.579.2.1259 1949 Unknown [id number] 2.16.84 0.1.327968.3.579.2.1258 1949 Unknown [id number] 2.16.84 0.1.343208.3.579.2.1259 1949 Unknown [id number] 2.16.84 0.1.106964.3.579.2.125 1949 Unknown [id number] 2.16.8 40.1.583482.3.579.2.1244 1949 Unknown [id number] 2.16.8 40.1.129720.3.579.2.1244 Medicare Medicare [id number] Unknown [id number] 2.16.8 40.1.215293.3.579.2.531 Unknown [id number] 2.16.8 40.1.348417.3.579.2.531 Social History Date Type Detail Facility Start: 04-13-2023 End: 02-17-2024 No alcohol use No alcohol use [place] [address] DO Work Phone: Comment on above: 2 pots coffee daily; 1 ppd; Start: 04-13-2023 End: 02-17-2024 Sex Assigned At [employer] Other Start: 08-03-2022 End: 04-06-2023 Tobacco smoking status NHIS Smoker (finding) [facility] Start: 1950 Sex Assigned At Male [facility] Start: 04-13-2023 End: 02-15-2024 Tobacco smoking status NHIS Smokes tobacco daily [facility] History of tobacco use Cigarette Smoker [facility] Work Phone: Start: 04-13-2023 Tobacco use and exposure Smokeless tobacco non-user [facility] Work Phone: Start: 04-13-2023 End: 10-21-2023 Alcohol intake Lifetime non-drinker (finding) [facility] Work Phone: Start: 1950 Sex Assigned At Not on file [facility] Work Phone: Start: 04-03-2023 End: 10-21-2023 Exposure to SARS-CoV-2 (event) Not sure [facility] Tobacco smoking status NHIS Tobacco smoking consumption unknown [facility] National Score (1-100), lower number is lower risk 59 [facility] Goals Date Patient Goal Desired Activity /State Clinical Notes 11-27-2021 to 02-17-2024 Patient InstructionsVenRoni sue MD - 02/17/2024 11:00 AM EDTTelephone Encounter - Kadie Mcguire MA - 02/14/2024 11:53 AM EDTTelephone Encounter - Kadie Mcguire MA - 02/14/2024 11:53 AM EDT Note Date & Type Note Facility 02-17-2024 Instructions Roni Bolden MD - 02/17/2024 11:16 AM EDT Ordered PET scan Ordered MRI brain Ordered pulmonary referral for EBUS F/u in 2 weeks. documented in this encounter [facility] 02-17-2024 History of Present illness Narrative PATIENT NAME: Sen [facility] NO.: [id number] ATTENDING PHYSICIAN: Roni Bolden MD DATE OF SERVICE: February 17, [address] Pablo Abreu MD ([facility]) [address] [place] [address] thank you for referring Sen Garcia for an opinion regarding lung cancer. CHIEF COMPLAINT: Lung cancer HPI: Sen Garcia is a 73 year old year old male referred to us for lung cancer. PMH of CVA, DM, HTN, COPD, Anxiety Severe SOB with minimal exertion. Seemed confused and went to ER on 01/27/24. CT head negative. CTA head and neck without narrowing. Chest x-ray abnormal and CT chest with spiculated mass in HALIE concerning for metastatic cancer. Noted enlarged lymph nodes and masses in liver and adrenal gland. Smokes 15 cigs per day. Many yrs C/o weight loss, loss of appetite. Amble to ambulate short distance C/o watery diarrhea Current Outpatient Medications Medication Sig pantoprazole DR (PROTONIX) 40 mg tablet albuterol HFA (PROVENTIL HFA, VENTOLIN HFA) 90 mcg/actuation inhaler Inhale 2 Puffs as instructed every 4 hours as needed. clonazePAM (KLONOPIN) 0.5 mg tablet Take 0.5 mg by mouth. clopidogrel (PLAVIX) 75 mg tablet Take 75 mg by mouth. cyclobenzaprine (FLEXERIL) 10 mg tablet Take 10 mg by mouth. ferrous sulfate 325 mg (65 mg iron) EC tablet Take 325 mg by mouth. FLUoxetine (PROZAC) 40 mg capsule fluticasone-vilanterol (BREO ELLIPTA) 100-25 mcg/dose inhaler inhale 1 puff by mouth and INTO THE LUNGS once daily HYDROcodone-Acetaminophen (NORCO) 10-325 mg per tablet Take 1 tablet by mouth. loperamide HCl (IMODIUM) 2 mg tab Take 2-4 mg by mouth. midodrine (PROAMATINE) 10 mg tablet Take 15 mg by mouth. pioglitazone (ACTOS) 15 mg tablet Take 15 mg by mouth. simvastatin (ZOCOR) 40 mg tablet Take 1 tablet by mouth daily at bedtime. sotalol (BETAPACE) 80 mg tablet Take 80 mg by mouth. tamsulosin (FLOMAX) 0.4 mg Take 0.4 mg by mouth. venlafaxine ER (EFFEXOR XR) 150 mg 24 hr capsule Take 1 capsule by mouth once daily. zolpidem (AMBIEN) 10 mg Take 10 mg by mouth. iv contrast (will be provided with radiology test) MRI Brain Inject, intravenously, once for 1 dose.No IV access, insert saline lock prior to beginning of sedation, infusion, injection of imaging exam.Discontinue saline lock post exam. If Pt. has a central line or IVAD, may access for administration according to line specific nursing protocol.Once exam is complete flush line and de-access according to line specific nursing protocol in the MR contrast administration guidelines link albuterol (PROVENTIL) 2.5 mg /3 mL (0.083 %) nebulizer solution inhale contents of 1 vial in nebulizer by mouth and INTO THE LUNGS every 4 hours if needed (Patient not taking: Reported on 02/17/2024) No current facility-administered medications for this visit. ALLERGIES No Known Allergies PAST MEDICAL HISTORY Diagnosis Date Encopresis HILARY (generalized anxiety disorder) GERD (gastroesophageal reflux disease) Lung cancer (HCC) No past surgical history on file. No family history on file. Social History Tobacco Use Smoking status: Every Day Types: Cigarettes REVIEW OF SYSTEMS GENERAL: No weight loss, malaise or fevers. No night sweats. HEENT: Negative for headaches, No changes in hearing or vision, no nose bleeds or other nasal problems. RESPIRATORY: Negative for cough, wheezing and shortness of breath CARDIOVASCULAR: Negative for chest pain, leg swelling and palpitations GI: Negative for abdominal discomfort, blood in stools or black stools and change in bowel habits : Negative for dysuria, frequency and incontinence MUSCULOSKELETAL: Negative for joint pain or swelling, back pain, and muscle pain. SKIN: Negative for lesions, rash, and itching. HEMATOLOGY/LYMPHOLOGY Negative for prolonged bleeding, bruising easily, and swollen nodes. NEURO: Negative for numbness or tingling of hands/feet. No weakness. PHYSICAL EXAMINATION: BP 92/62 Pulse 75 Temp 36.2 C (97.1 F) (Temporal) Resp 18 Wt 69.6 kg (153 lb 7 oz) SpO2 96% There were no vitals taken for this visit. No data found for this vital: Wt General appearance:ECOG PERFORMANCE STATUS: 3- Capable of only limited selfcare, confined to bed/chair > 50% of waking hrs. Patient in NAD. Skin: Skin color, texture, turgor normal. No rashes or lesions. Eyes: Anicteric sclera. Pupils are equally round and reactive to light. Extraocular movements are intact. Breast: No palpable breast masses. No nipple change or discharge. Lymph Nodes: No cervical, supraclavicular, axillary or inguinal adenopathy. Oropharynx: Lips, mucosa, and tongue normal. Back: No pain to percussion. Negative SLR test Lungs clear to auscultation, No wheezing or rhonchi Heart: RRR without murmur, gallop, or rubs. Abdomen soft, non-tender. No masses, organomegaly Extremities: No deformities. No edema Neuro: Gait and speech normal. Reflexes normal and symmetric. Muscular strength intact. Sensation grossly intact. Rectal: Deferred : Deferred LABS: No results found for: GLUC , K , NA , CHLOR , CO2 , CREAT , BUN , ANION , CA , TPROT , ALB , TBILI , ALKPHOS , AST , ALT No results found for: WBC , RBC , HB , HCT , MCV , MCH , MCHC , RDWCV , PLT , MPV , NEUT , ABSNEUT , LYMPHP , ABSLYMPH , MONOP , ABSMONO , EOSINP , ABSEOSIN , BASOP , ABSBASO PATH: IMAGING: ASSESSMENT AND PLAN: Sen Garcia is a 73 year old year old male referred to us for lung mass. H/o CVA, DM, HTN, Anxiety CT chest in Dec 2023 showed spiculated mass in HALIE concerning for metastatic cancer. Noted enlarged lymph nodes and masses in liver and adrenal gland. PS 3 PLAN: - Ordered PET scan for complete staging - Ordered MRI brain -Refer to pulmonary for possible EBUS -Patient states he is interested in getting the treatments for the cancer -Further management depending on the imaging study findings and the biopsy results -Ordered stool for C. difficile for diarrhea -All their questions answered in detail -Follow-up in [address] Pablo Abreu MD ([facility]) [address] [facility] [address] thank you for allowing me to participate in Sen Garcia care, if there are any questions or concerns please do not hesitate to contact me at the number below. I spent a total of 60 minutes on the date of the service which included preparing to see the patient, [id number] patient care, completing clinical documentation, obtaining and/or reviewing separately obtained history, performing a medically appropriate examination, counseling and educating the patient/family/caregiver, ordering medications, tests, or procedures, communicating with other HCPs (not separately reported), independently interpreting results (not separately reported), communicating results to the patient/family/caregiver, and care coordination (not separately reported). Roni Bolden MD. Hematology/Medical Oncology [facility] [place] [phone] CC: documented in this encounter [facility] 02-17-2024 Note HNO ID: [id number] Author: RONI BOLDEN MD Service: ? Author Type: Physician Type: Progress Notes Filed: 02/17/2024 12:00 Note Text: PATIENT NAME: Sen Garcia [facility] NO.: [id number] ATTENDING PHYSICIAN: Roni Bolden MD DATE OF SERVICE: February 17, [address] Pablo Abreu MD ([facility]) [address] [facility] [address] thank you for referring Sen Garcia for an opinion regarding lung cancer. CHIEF COMPLAINT: Lung cancer HPI: Sen Garcia is a 73 year old year old male referred to us for lung cancer. PMH of CVA, DM, HTN, COPD, Anxiety Severe SOB with minimal exertion. Seemed confused and went to ER on 01/27/24. CT head negative. CTA head and neck without narrowing. Chest x-ray abnormal and CT chest with spiculated mass in HALIE concerning for metastatic cancer. Noted enlarged lymph nodes and masses in liver and adrenal gland. Smokes 15 cigs per day. Many yrs C/o weight loss, loss of appetite. Amble to ambulate short distance C/o watery diarrhea Current Outpatient Medications Medication Sig pantoprazole DR (PROTONIX) 40 mg tablet albuterol HFA (PROVENTIL HFA, VENTOLIN HFA) 90 mcg/actuation inhaler Inhale 2 Puffs as instructed every 4 hours as needed. clonazePAM (KLONOPIN) 0.5 mg tablet Take 0.5 mg by mouth. clopidogrel (PLAVIX) 75 mg tablet Take 75 mg by mouth. cyclobenzaprine (FLEXERIL) 10 mg tablet Take 10 mg by mouth. ferrous sulfate 325 mg (65 mg iron) EC tablet Take 325 mg by mouth. FLUoxetine (PROZAC) 40 mg capsule fluticasone-vilanterol (BREO ELLIPTA) 100-25 mcg/dose inhaler inhale 1 puff by mouth and INTO THE LUNGS once daily HYDROcodone-Acetaminophen (NORCO) 10-325 mg per tablet Take 1 tablet by mouth. loperamide HCl (IMODIUM) 2 mg tab Take 2-4 mg by mouth. midodrine (PROAMATINE) 10 mg tablet Take 15 mg by mouth. pioglitazone (ACTOS) 15 mg tablet Take 15 mg by mouth. simvastatin (ZOCOR) 40 mg tablet Take 1 tablet by mouth daily at bedtime. sotalol (BETAPACE) 80 mg tablet Take 80 mg by mouth. tamsulosin (FLOMAX) 0.4 mg Take 0.4 mg by mouth. venlafaxine ER (EFFEXOR XR) 150 mg 24 hr capsule Take 1 capsule by mouth once daily. zolpidem (AMBIEN) 10 mg Take 10 mg by mouth. iv contrast (will be provided with radiology test) MRI Brain Inject, intravenously, once for 1 dose.No IV access, insert saline lock prior to beginning of sedation, infusion, injection of imaging exam.Discontinue saline lock post exam. If Pt. has a central line or IVAD, may access for administration according to line specific nursing protocol.Once exam is complete flush line and de-access according to line specific nursing protocol in the MR contrast administration guidelines link albuterol (PROVENTIL) 2.5 mg /3 mL (0.083 %) nebulizer solution inhale contents of 1 vial in nebulizer by mouth and INTO THE LUNGS every 4 hours if needed (Patient not taking: Reported on 02/17/2024) No current facility-administered medications for this visit. ALLERGIES No Known Allergies PAST MEDICAL HISTORY Diagnosis Date Encopresis HILARY (generalized anxiety disorder) GERD (gastroesophageal reflux disease) Lung cancer (HCC) No past surgical history on file. No family history on file. Social History Tobacco Use Smoking status: Every Day Types: Cigarettes REVIEW OF SYSTEMS GENERAL: No weight loss, malaise or fevers. No night sweats. HEENT: Negative for headaches, No changes in hearing or vision, no nose bleeds or other nasal problems. RESPIRATORY: Negative for cough, wheezing and shortness of breath CARDIOVASCULAR: Negative for chest pain, leg swelling and palpitations GI: Negative for abdominal discomfort, blood in stools or black stools and change in bowel habits : Negative for dysuria, frequency and incontinence MUSCULOSKELETAL: Negative for joint pain or swelling, back pain, and muscle pain. SKIN: Negative for lesions, rash, and itching. HEMATOLOGY/LYMPHOLOGY Negative for prolonged bleeding, bruising easily, and swollen nodes. NEURO: Negative for numbness or tingling of hands/feet. No weakness. PHYSICAL EXAMINATION: BP 92/62 Pulse 75 Temp 36.2 ?C (97.1 ?F) (Temporal) Resp 18 Wt 69.6 kg (153 lb 7 oz) SpO2 96% There were no vitals taken for this visit. No data found for this vital: Wt General appearance:ECOG PERFORMANCE STATUS: 3- Capable of only limited selfcare, confined to bed/chair > 50% of waking hrs. Patient in NAD. Skin: Skin color, texture, turgor normal. No rashes or lesions. Eyes: Anicteric sclera. Pupils are equally round and reactive to light. Extraocular movements are intact. Breast: No palpable breast masses. No nipple change or discharge. Lymph Nodes: No cervical, supraclavicular, axillary or inguinal adenopathy. Oropharynx: Lips, mucosa, and tongue normal. Back: No pain to percussion. Negative SLR test Lungs clear to auscultation, No wheezing or rhonchi Heart: RRR without murmur, gallop, or rubs. Abdome (more content not included)... [facility] 02-14-2024 Telephone encounter Note Patient has an appt on 02/16. Would you like labs? [facility] 02-14-2024 Miscellaneous Notes Patient has an appt on 02/16. Would you like labs? documented in this encounter [facility] 10-21-2023 History of Present illness Narrative Subjective [...] times a day., Disp: , Rfl: HYDROcodone-acetaminophen (Mittie) 7.5-325 mg tablet, Take 1 tablet by [...] closure device 4. 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 5. Mixed hyperlipidemia [...] status post watchman's device August 2022 at [facility] with no complications. 2-orthostatic hypotension that [...] times a day., Disp: , Rfl: HYDROcodone-acetaminophen (Mittie) 7.5-325 mg tablet, Take 1 tablet by [...] closure device 4. 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 5. Mixed hyperlipidemia [...] discussion and plan. documented in this encounter [facility] Work Phone: 10-21-2023 Instructions Jyothi Wallis [...] 3 times daily documented in this encounter [facility] Work Phone: 04-13-2023 History of Present [...] status post watchman's device August 2022 at [facility] with no complications. 2-active tobacco abuse, [...] times a day., Disp: , Rfl: HYDROcodone-acetaminophen (Mittie) 7.5-325 mg tablet, Take 1 tablet by [...] Lipid Panel 2. 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 3. Mixed hyperlipidemia 4. Type 2 diabetes mellitus without complication, without long-term current use of insulin (CMS/HCC) 5. Cerebrovascular accident (CVA), unspecified mechanism (CMS/HCC) 6. Chronic obstructive pulmonary disease, unspecified COPD type (CMS/HCC) 7. Current every day smoker 8. Coronary artery disease involving kasaan heart without angina pectoris, unspecified vessel or lesion type Lipid Panel Lipid Panel documented in this encounter [facility] Work Phone: 04-13-2023 Instructions Sloane Mabry [...] of your visit. documented in this encounter [facility] Work Phone: 08-25-2022 Note Send Summary: Discharge Summary Providers: Provider RoleProvider Name AttendingKatia Alex Note Recipients: Israel Escamilla MD - [id number] [preferred] Pablo Abreu MD - [id number] [] Discharge: Summary: Admission Date: .25-Aug-2022 08:32:00 [...] dry, intact. Hospital Course: PCP: Dr. Abreu Orchardist: Dr. Escamilla I was asked by Dr. [...] groin No e (more content not included)... [facility] 08-25-2022 Note History & Physical [...] the note. I personally evaluated the patient [id number] Electronic Signatures: Katia Alex) (Signed 25-Aug-2022 14:22) Authored: Note Completion Co-Signer: History & Physical Reviewed, Airway/Sedation, ERAS, Consent, Note Completion Eloisa Fallon (Fellow)) (Signed 25-Aug-2022 12:33) Authored: History & Physical Reviewed, Airway/Sedation, ERAS, Consent, Note Completion Last Updated: 25-Aug-2022 14:22 by Katia Alex) [facility] 08-25-2022 Note Clinical Note - Elmer chaparro v2: Education: Document TopicMedication Education MedicationMeds to Beds: Patient accepts Meds to Beds service at discharge, please send prescriptions to [facility]. Sources used to confirm home medication list: - Patient interview (provided written home med list) - AEMR med list vs. Fill history (at [facility]) - OARRS (Mittie 7.5-325mg filled 07/30/22 #120 x 30DS; Flexeril 10mg filled 07/29/22 #270 x 90DS; Ambien 10mg filled 07/03/22 #90 x 90DS) Aspirin 81mg daily: DISCONTINUED at end of May due to bleeding Statin: Simvastatin 40 mg daily P2Y12 inhibitor: not prescribed Anticoagulant: warfarin DISCONTINUED at end of May due to bleeding Medication reconciliation complete Please reach out via [employer] for questions. Or if no response, please call [employer] or [employer]. [place]nee [place], PGY1 General Superintendent [facility] Is This Intervention Medication Reconciliation Relatedyes Time [id number] minutes Additional NotesHome Medications Review Status for [...] Allergies Summary No Known Allergies Electronic Signatures: TreArmani castro Davon Villagomez (PharmD) (Signed 25-Aug-2022 10:42) Authored: Education, Allergy Joanne Lim ([facility]) (Signed 25-Aug-2022 14:07) Co-Signer: Education, Allergy Last Updated: 25-Aug-2022 14:07 by Joanne Lim ([facility]) [facility] 08-11-2022 Consult note Note Date/Time August 09, 2022 1:37pm [facility] [place] [address] Hem/Onc Consult Note - OP Signed Patient: Sen Garcia MR#: [id number] : 1950 Acct:[id number] Age/Sex: 71 / M Type: REG RCR [...] a [facility] HPI: Dear Dr. Johnson, I have seen your patient in consultation and would like to thank you for the courtesy of your referral. As you know, Mr. Sen Garcia is a 71-year-old gentleman with a past medical history of: Hypertension, diabetes mellitus, COPD, obesity, CVA, PVD, CAD?status post MS, BPH, chronic back pain (status post L5 [...] was admitted to outside hospital - [facility] and had several PRBC transfusions. He underwent EGD and colonoscopy by Dr. Obrien on 06/16/2022; which was essentially negative for any obvious source of bleeding andhe was recommended for follow up with wireless capsule endoscopy. Labs from [facility] dated: 06/16/2022 reveal a WBC count -5.6; hemoglobin 8.1; hematocrit 24.6; platelet count 114,000. PT 11.4; INR?1.08. BUN 12; creatinine0.71 and GFR greater than 60. Upon lab recheck dated 07/02/2022 his WBC count was5.8; hemoglobin had improved to 11.3; hematocrit 33.5; platelet count 175,000; mild elevation of RDW with normocytic indices and normal renal and hepatic function. CT abdomen/pelvis dated 06/16/2022 at the [facility] revealed no acute findings. He has [...] further obvious GI bleeding or blood loss. [facility] - Medical History Medical History: Medical History [...] % (Auto) 59.9, Lymph % (Auto) 29.4, [place] % (Auto) 9.1, Eos % (Auto) 1.0, Baso % (Auto) 0.6, Nucleat RBC Rel Count 0.2, Neut # (Auto) 3.4, Lymph # (Auto) 1.7, [place] # (Auto) 0.5, Eos # (Auto) 0.1, [...] was admitted to outside hospital - [facility] and had several PRBC transfusions. Labs from [facility] dated: 06/16/2022 reveal a WBC count -5.6; [...] Acute presentation of significant GI bleed to [facility] in May 2022;in the setting of chronic anticoagulation with Coumadin + ASA. During his inpatient admission at [place]; he underwent EGD and colonoscopy by Dr. Obrien on 06/16/2022; which was essentially negative for any obvious source of bleeding and he was recommended for follow up with wireless capsule endoscopy. CT abdomen/pelvis dated 06/16/2022 at the [facility] revealed no acute findings. The patient has since seen Dr. Johnson at [facility] Gastroenterology and is in the [...] for coordination of care (as documented) and [id number] counseling of patient and/or family. Dictated By: Mellissa Padilla APRN DD/ 1336 Signed By: <Electronically signed by MISA Padilla> 08/11/22 1103 [facility] [employer] Work Phone: 1(682) 478-636103-01-2023 Evaluation note* Encounter Date Diagnosis Assessment Notes Treatment Notes Treatment Clinical Notes Jul, Acute GI bleeding (ICD-10 - K92.2) Pt to follow up with administrative library assistant-pt has appt on 09-30-22 Jul, Anemia (ICD-10 - D64.9) Will arrange EGD with push enteroscopy and colonoscopy-if negative will proceed with capsule endoscopy Jul, Rectal bleeding (ICD-10 - K62.5) [facility] Other 06-30-2022 Evaluation note* Encounter Date Diagnosis Assessment Notes Treatment Notes Treatment Clinical Notes Oct, Infection of mouth (ICD-10 - K12.2) Take medication as directed. Complete all doses. Sent referral to oral surgeon since it is requirement to be seen [facility] Other Evaluation noteNo InformationNort Kismet Other Evaluation noteNo assessment information available [facility] [employer] Work Phone: Evaluation note* Diagnosis Onset Date Resolution Status GI bleed acute Thrombocytopenia acute Anemia due to blood loss [facility] Work Phone: Evaluation note* Diagnosis Atrial fibrillation and flutter (CMS/HCC) Coronary artery disease involving kasaan heart without angina pectoris, unspecified vessel or lesion type Mixed hyperlipidemia Type 2 diabetes mellitus without complication, without long-term current use of insulin (CMS/HCC) Cerebrovascular accident (CVA), unspecified mechanism (CMS/HCC) Chronic obstructive pulmonary disease, unspecified COPD type (CMS/HCC) Current every day smoker documented in this encounter [facility] Work Phone: Evaluation note* Diagnosis Atrial fibrillation and flutter (Multi)- Primary Orthostatic hypotension Presence of Watchman left atrial appendage closure device 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 Mixed hyperlipidemia Type 2 diabetes mellitus without complication, without long-term current use of insulin (Multi) Current every day smoker Overweight with body mass index (BMI) of 27 to 27.9 in adult documented in this encounter [facility] Work Phone: Evaluation note* Diagnosis Lung mass- Primary Swelling, mass, or lump in chest Neoplasm of lung Neoplasm of unspecified nature of respiratory system Diarrhea, unspecified type documented in this encounter [facility] general Narrative - Reported* Type Description Date Medical History heart attack Medical History stroke Medical History [facility] [facility] Other History general Narrative - Reported* Type Description Date Medical History heart attack Medical History stroke Medical History depression Surgical History low back Surgical History lt elbow Surgical History rt elbow Hospitalization History see above Hospitalization History stroke Hospitalization History [facility] Other Reason for referral (narrative)* Consultation (Routine) - Authorized Specialty Diagnoses / Procedures Referred By Jose t Referred To Contact Cardiology Diagnoses Atrial fibrillation and flutter (CMS/HCC) Procedures Follow Up In Cardiology Israel Escamilla MD [address] [place] [address] 2, Jorge [address] [place] [address] Israel Escamilla MD [address] [facility] 2, [address] [place] [address] Referral ID Status Reason Start Date Expiration Date V isits Requested Visits Authorized [id number] Authorized 04/13/2023 04/12/2024 1 1 * Cardiovascular (Routine) - Pending Review Specialty Diagnoses / Procedures Referred By Contac t Referred To Contact Diagnoses Atrial fibrillation and flutter (CMS/HCC) Procedures ECG 12 Lead Israel Escamilla MD [address] [facility] 2, [facility] [address] [place] [address] Referral ID Status Reason Start Date Expiration Date V isits Requested Visits Authorized [id number] Pending Review 04/13/2023 04/12/2024 1 1 [facility] Work Phone: Reason for referral (narrative)* Diagnostic Procedure Only (Routine) - Additional Clinical Info Needed Specialty Diagnoses / Procedures Referred By Contac t Referred To Contact MOLECULAR & FUNCTIONAL IMAGING Diagnoses Neoplasm of lung Procedures NM PET/CT SKULL-THIGH INITIAL PET IMAGING CT ATTENUATION SKULL BASE MID-THIGH Roni Bolden MD [address] [place] [address] [place] [address] Molecular & Functional Imaging [address] [place] [address] Referral ID Status Reason Start Date Expiration Date Visits Requested Visits Authorized [id number] Additional Clinical Info Needed Auto-Generat ed Referral 02/17/2024 03/18/2025 1 1 * Consult, Test, Treat (Routine) - Authorized Specialty Diagnoses / Procedures Referred By Contac t Referred To Contact Pulmonary and Critical Care Medicine Diagnoses Lung mass Procedures CONSULT TO PULM/CRITICAL CARE OFFICE/OUTPATIENT [facility] 60 MINUTES Roni Bolden MD [address] [place] [address] [place] [address] Referral ID Status Reason Start Date Expiration Date Visits Requested Visits Authorized [id number] Authorized PCP Requested Referral 03/02/2024 02/16/2025 1 1 * MRI/CT (Routine) - New Request Specialty Diagnoses / Procedures Referred By Contac t Referred To Contact MR IMAGING Diagnoses Lung mass Procedures MRI BRAIN WO/W IVCON MRI BRAIN BRAIN STEM W/O W/CONTRAST MATERIAL Roni Bolden MD [address] [place] [address] [place] [address] [place] [address] Referral ID Status Reason Start Date Expiration Date Visits Requested Visits Authorized [id number] New Request Auto-Generat ed Referral 03/02/2024 03/18/2025 1 1 [facility] Chief Complaint * SEN GARCIA is being [...] anticoagulationwith Coumadin managed by his PCP in [place] * 2 active tobacco abuse, education provided [...] anticoagulationwith Coumadin managed by his PCP in [place] * 2 active tobacco abuse, education provided [...] after having a watchman's device implanted at [facility] 2022 with no complications. When his [...] in gumline causing inflammation - [place] Diagnosis 1 Infection of mouth ( K12.2) Referral Organization [facility] [place] Referring Provider First Name Nataliia Referring Provider Last Name Zee Referring Provider Specialty Nurse Annia eugene Referred Organization [facility] Referred Address [address],[facility],[address] Referred Provider Specialty Oral Surgery Referral Priority Routine General Notes Sadaf Chacon 022 02:09:22 PM >Received and fax referral today to [facility] in [place] [facility] Clinical Notes Office [phone] Reason 08/03/22 @ 2:30 Pl ease schedule consult to evaluate and treat. Diagnosis 1 Anemia (D64.9) Referral Organization [facility] Gastroenterolo gy Referring Provider First Name Imroldan Referring Provider Last Name Asaroldan Referring Provider Specialty Gastroenter ology Referred Organization [facility] Referred Provider Swati Baum Referred Address [address] [facility] ,[place], [place],[address] Referred Provider Specialty Hematology/O ncology Referral Priority Routine Referral Appointment Date 2022-08-03 General Notes Lauren Fernando 023 11:46:40 AM >RECEIVED TODAY & SENT Lauren Fernando 08/06/2022 11:25:15 AM >SENT 1ST LETTER Lauren Fernando 08/14/2022 09:43:00 AM >CONSULT WAS RECEIVD AND DR JOHNSON REVIEWED IT Specialty Diagnoses / Procedures Referred By Jose t Referred To Contact Diagnoses Atrial fibrillation and flutter (Multi) Procedures ECG 12 Lead Israel Escamilla MD [address] [facility] 2, [address] [address] Referral ID Status Reason Start Date Expiration Date V isits Requested Visits Authorized [id number] Authorized 10/21/2023 10/20/2024 1 1 Specialty Diagnoses / Procedures Referred By Jose t Referred To Contact Cardiology Diagnoses Atrial fibrillation and flutter (Multi) Procedures Follow Up In Cardiology Israel Escamilla MD [address] [facility] 2, [address] [address] Israel Escamilla MD [address] [facility] 2, [address] [address] Referral ID Status Reason Start Date Expiration Date V isits Requested Visits Authorized [id number] Authorized 10/21/2023 10/20/2024 1 1 Summary Purpose [...] Up In Cardiology Israel Escamilla MD [address] [facility] 2, [address] [address] Israel Escamilla MD [address] [facility] [address], [address] [address] Referral ID Status Reason Start Date Expiration Date V isits Requested Visits Authorized [id number] Authorized 04/13/2023 04/12/2024 1 1 Specialty Diagnoses / Procedures Referred By Contac t Referred To Contact Diagnoses Atrial fibrillation and flutter (CMS/HCC) Procedures ECG 12 Lead Israel Escamilla MD [address] [facility] [address], [address] [address] Referral ID Status Reason Start Date Expiration Date V isits Requested Visits Authorized [id number] Pending Review 04/13/2023 04/12/2024 1 1 Reason Comments Lab Orders Reason Comments Consult Lung Cancer Specialty Diagnoses / Procedures Referred By Contac t Referred To Contact Oncology Diagnoses 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) Procedures OFFICE/OUTPATIENT [facility] 60 MINUTES AMB REFERRAL TO ONCOLOGY Pablo Abreu [address] [place] [address] [place] [address] [place] [address] Referral ID Status Reason Start Date Expiration Date V isits Requested Visits Authorized [id number] Outside PCP 02/04/2024 08/02/2024 1 1 (unrecognized sect ion and content) No Status Records FoundNo Status Records FoundNo Status Records FoundNo Status Records FoundNo Status Records FoundNo Status Records FoundNo Status Records FoundNo Status Records Found INFORMATION SOURCE (unrecogn ized section and content) DATE CREATED AUTHOR 07/05/2022 [facility] DATE CREATED AUTHOR AUTHOR'S ORGANIZ ATION 10/03/2022 [facility] DATE CREATED AUTHOR AUTHOR'S ORGANIZ ATION 10/10/2022 [facility] DATE CREATED AUTHOR AUTHOR'S ORGANIZ ATION 01/07/2023 [facility] DATE CREATED AUTHOR AUTHOR'S ORGANIZ ATION 09/27/2023 [facility] DATE CREATED AUTHOR AUTHOR'S ORGANIZ ATION 02/06/2024 [facility] EPIC DATE CREATED AUTHOR AUTHOR'S ORGANIZ ATION 02/17/2024 [facility] DATE CREATED AUTHOR AUTHOR'S ORGANIZ ATION 02/19/2024 [facility] Care Teams (unrecognized sec tion and content) [...] Pablo Abreu MD Primary Care Provider Active Hr Business Partner Consultant Relationship Specialty Start Date End Date Pablo Abreu MD [address] [place] [address] [place] [address] PCP - General 11/2/21 Hr Business Partner Consultant Relationship Specialty Start Date End Date Pablo Abreu MD PCP - General 04/01/21 Hr Business Partner Consultant Relationship Specialty Start Date End Date Pablo Abreu [address] [place] [address] PCP - General Family Medicine 02/08/24 Pablo Abreu [address] [place] [id number] Referring Family Medicine 02/11/24 Hr Business Partner Consultant Relationship Specialty Start Date End Date Pablo Abreu [address] [place] [address] PCP - General Family Medicine 02/08/24 Pablo Abreu [address] [place] [id number] Referring Family Medicine 02/11/24 Hr Business Partner Consultant Relationship Specialty Start Date End Date Pablo Abreu [address] [place] [address] PCP - General Family Medicine 02/08/24 Pablo Abreu [address] [place] [address] Referring Family Medicine 02/11/24 Goals (unrecognized section and content) Goals may be documented in a n alternate section Source Comments (unrecognize d section and content) In the event this informatio n is protected by the Federal Confidentiality of Alcohol and Drug Abuse Patient Records regulations: The Federal rules restrict any use of the information to criminally investigate or prosecute any alcohol or drug abuse patient.[facility] the event this information is protected by the Federal Confidentiality of Alcohol and Drug Abuse Patient Records regulations: The Federal rules restrict any use of the information to criminally investigate or prosecute any alcohol or drug abuse patient.[facility] the event this information is protected by the Federal Confidentiality of Alcohol and Drug Abuse Patient Records regulations: The Federal rules restrict any use of the information to criminally investigate or prosecute any alcohol or drug abuse patient.[facility] FOR RECORDS PERTAINING TO PATIENTS WHO ARE [...] BE BASED ON THE PRIMARY CLINICAL RECORDS. [facility]. provides no warranty or guarantee of the accuracy or completeness of information in this document.
[2024-02-23 16:32] LABS: C. Difficile PCR POSITIVE (NEGATIVE)
== END 2024-02-22 17:22 | disposition home or self-care (01) ==
LOC: LAB 17:21
PROVIDERS: PCP Family Medicine; Visit Provider Family Medicine
DX: C34.92 Malignant neoplasm of unspecified part of left bronchus or lung (principal); R15.9 Full incontinence of feces; R19.7 Diarrhea, unspecified
CPT/HCPCS: 87045; 87046; 87427; 87493; 87507